=== PATIENT | male | born 1980 | race Caucasian/White ===

== ENCOUNTER → 2020-05-24 08:18 | Outpatient (BNVA) | payer MEDICARE, MEDICAID, SELFPAY | PROVIDERS: PCP Internal Medicine; Referring Provider Internal Medicine; Visit Provider Internal Medicine Gastroenterology | DX: D64.9 Anemia, unspecified (principal); K59.00 Constipation, unspecified; E10.65 Type 1 diabetes mellitus with hyperglycemia; Q90.9 Down syndrome, unspecified; Z88.2 Allergy status to sulfonamides | CPT/HCPCS: 99212 ==

== ENCOUNTER 2020-06-03 08:55 | Outpatient (REF) | payer MEDICARE, MEDICAID, SELFPAY ==
[2020-06-03 10:02] LABS: Alanine Aminotransferase 15 U/L (0-40); Albumin Level 3.2 g/dL (3.5-5.0); Alkaline Phosphatase 61 U/L (39-117); Aspartate Amino Transferase 12 U/L (5-37); Bilirubin Total 0.2 mg/dL (0.0-1.0); Blood Urea Nitrogen 39 mg/dL (9-16); Calcium 8.6 mg/dL (8.4-10.2); Cholesterol 201 mg/dL; Estimated Glomerular Filt Rate > 60; Glucose Random 188 mg/dL (60-115); HDL Cholesterol 57 mg/dL; LDL Cholesterol Calculated 111 mg/dl; Total Protein 6.2 g/dL (6.5-8.0); Triglycerides 168 mg/dL
[2020-06-03 10:40] LABS: Anion Gap 11 (12-20); Carbon Dioxide 31 mmol/L (22-29); Chloride 99 mmol/L (96-108); Potassium 4.8 mmol/l (3.3-5.1); Sodium 136 mmol/L (135-145)
== END 2020-06-03 08:56 | disposition home or self-care (01) ==
LOC: HO.LAB 08:55
PROVIDERS: PCP Internal Medicine; Visit Provider Internal Medicine
DX: E78.00 Pure hypercholesterolemia, unspecified (principal)
CPT/HCPCS: 80053; 80061

== ENCOUNTER → 2020-06-11 09:58 | Outpatient (BNVA) | payer MEDICARE, MEDICAID, SELFPAY | PROVIDERS: PCP Internal Medicine; Referring Provider Internal Medicine; Visit Provider Internal Medicine Pulmonary Disease | DX: J20.9 Acute bronchitis, unspecified (principal); R05 Cough; Z79.899 Other long term (current) drug therapy | CPT/HCPCS: 99212 ==

== ENCOUNTER 2020-07-01 09:29 | Outpatient (REF) | payer MEDICARE, MEDICAID, SELFPAY ==
--- NOTE | 2020-07-01 10:28 | MHC.AU.P13 ---
Adult Audiological Evaluation Date of Visit: 07/01/20 Reason for Appointment: Audiological re-evaluation to monitor hearing loss. Annual audiological evaluations required by DDS. Mr. 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 Has hearing been tested previously?: Yes Previous Hearing Test Results: [facility] [place], 02/05/2019- Mild to moderate high-frequency sensorineural hearing loss bilaterally. Ear History: History of Ear Wax Buildup: Both Ears Medical History: Medical History:Developmental Disorder/Delay, Diabetes, Down Syndrome, Thyroid Disease Medical History (Other): environmental allergies Otoscopy: Right Ear: Unremarkable Left Ear: Partially occluded with cerumen. Unable to view TM. Tympanometry: Right Ear: Reduced Middle Ear Compliance (Type As) Left Ear: Normal Middle Ear System (Type A) Hearing Evaluation: Transducer(s) Used: Circumaural Headphones, Bone Conduction Method: Conventional Audiometry Stimuli Used: Pure Tones Right Ear: Description of Hearing: Normal hearing from 250-2000 Hz, sloping to a mild to moderate sensorineural hearing loss from 5236-5455 Hz. Left Ear: Description of Hearing: Normal hearing from 250-2000 Hz, sloping to a mild to moderate sensorineural hearing loss from 5785-0812 Hz. Speech Recognition Threshold (SRT): Method Used: Monitored Live Voice Stimuli Used: Spondee Words Right Ear: 10 dBHL Left Ear: 15 dBHL Word Discrimination: Method: Recorded Lists Word Lists Used: PBK Right Ear: 96% at 55 dBHL Left Ear: 92% at 55 dBHL Comparison: Compared to the most recent evaluation: Hearing is stable. Recommendations: Recommendations: Audiological re-evaluation in one year. Amplification is not warranted at this time. Follow-up with physician for cerumen removal. Diagnosis: Primary Diagnosis: H90.3 Bilateral Sensorineural Hearing Loss Secondary Diagnosis: H61.22 Impacted Cerumen, Left Ear Services Performed: Services Performed: Comprehensive Audiological Evaluation (CPT 87739) Tympanometry (CPT 11402) Signature: Provider: Sheryl Seay, CCC-A
== END 2020-07-01 09:30 | disposition home or self-care (01) ==
LOC: HO.SH 09:29
PROVIDERS: Visit Provider Internal Medicine
DX: H90.3 Sensorineural hearing loss, bilateral (principal); H61.22 Impacted cerumen, left ear
CPT/HCPCS: 92557; 92567

== ENCOUNTER 2020-09-13 09:28 | Outpatient (REF) | payer MEDICARE, MEDICAID, SELFPAY ==
[2020-09-13 10:21] LABS: Ammonia 21 umol/L (13-55)
[2020-09-13 10:22] LABS: Alanine Aminotransferase 17 U/L (0-40); Albumin Level 3.1 g/dL (3.5-5.0); Alkaline Phosphatase 62 U/L (39-117); Aspartate Amino Transferase 21 U/L (5-37); Bilirubin Direct < 0.2 mg/dL (0.0-0.5); Bilirubin Total 0.4 mg/dL (0.0-1.0); Total Protein 6.2 g/dL (6.5-8.0)
[2020-09-13 14:36] LABS: Valproate 15.3 mcg/mL (50.0-100.0)
== END 2020-09-13 09:29 | disposition home or self-care (01) ==
LOC: HO.LAB 09:28
PROVIDERS: PCP Internal Medicine; Visit Provider General Practice
DX: Z79.899 Other long term (current) drug therapy (principal)
CPT/HCPCS: 36415; 80076; 80164; 82140

== ENCOUNTER → 2020-09-15 09:42 | Outpatient (BNVA) | payer MEDICARE, MEDICAID, SELFPAY | PROVIDERS: PCP Internal Medicine; Visit Provider Urology | DX: Z13.89 Encounter for screening for other disorder (principal) | CPT/HCPCS: Q3014 ==

== ENCOUNTER → 2020-10-08 09:42 | Outpatient (BNVA) | payer MEDICARE, MEDICAID, SELFPAY | PROVIDERS: PCP Internal Medicine; Visit Provider Internal Medicine Pulmonary Disease | DX: J84.112 Idiopathic pulmonary fibrosis (principal); R05 Cough | CPT/HCPCS: 99212 ==

== ENCOUNTER 2020-11-11 07:22 | Outpatient (REF) | payer MEDICARE, MEDICAID, SELFPAY ==
[2020-11-11 08:35] LABS: Alanine Aminotransferase 13 U/L (0-40); Albumin Level 3.2 g/dL (3.5-5.0); Alkaline Phosphatase 59 U/L (39-117); Anion Gap 11 (12-20); Aspartate Amino Transferase 12 U/L (5-37); Bilirubin Total 0.4 mg/dL (0.0-1.0); Blood Urea Nitrogen 37 mg/dL (9-16); Calcium 8.3 mg/dL (8.4-10.2); Carbon Dioxide 29 mmol/L (22-29); Chloride 101 mmol/L (96-108); Cholesterol 194 mg/dL; Estimated Glomerular Filt Rate > 60; Glucose Random 343 mg/dL (60-115); HDL Cholesterol 44 mg/dL; LDL Cholesterol Calculated 122 mg/dl; Potassium 5.4 mmol/L (3.3-5.1); Sodium 136 mmol/L (135-145); Total Protein 5.9 g/dL (6.5-8.0); Triglycerides 143 mg/dL
[2020-11-11 08:55] LABS: Estimated Average Glucose 229 mg/dL; Hemoglobin A1c % 9.6 %
== END 2020-11-11 07:23 | disposition home or self-care (01) ==
LOC: HO.LAB 07:22
PROVIDERS: Visit Provider Internal Medicine
DX: E10.65 Type 1 diabetes mellitus with hyperglycemia (principal); E78.00 Pure hypercholesterolemia, unspecified
CPT/HCPCS: 36415; 80053; 80061; 83036

== ENCOUNTER 2021-01-26 08:31 | Outpatient (REF) | payer MEDICARE, MEDICAID, SELFPAY ==
[2021-01-26 10:54] LABS: Glucose Urine UA 100 MG/DL (NEG); Leukocyte Esterase Urine NEG (NEG); Nitrite Urine NEG (NEG); PH 5.5 (5.0-8.0); Specific Gravity - Urine >= 1.030 (1.005-1.025); Urine Blood TRACE (NEG); Urine Ketones NEG (NEG); Urine Protein 3+ MG/DL (NEG-TRACE)
[2021-01-26 10:55] LABS: Appearance Urine CLEAR; Color Urine YELLOW
[2021-01-26 11:43] LABS: Amorphous Sediment Urine TRACE /LPF; Bacteria Urine TRACE /LPF; Squamous Epithelial Cell Urine TRACE /LPF; WBC Urine 0-2 /HPF (0-4)
== END 2021-01-26 08:32 | disposition home or self-care (01) ==
LOC: HO.LAB 08:31
PROVIDERS: PCP Internal Medicine; Visit Provider Nurse Practitioner Family
DX: K59.00 Constipation, unspecified (principal); R30.0 Dysuria
CPT/HCPCS: 81001; 99212

== ENCOUNTER → 2021-02-15 09:14 | Outpatient (BNVA) | payer MEDICARE, MEDICAID, SELFPAY | PROVIDERS: PCP Internal Medicine; Visit Provider Internal Medicine Pulmonary Disease | DX: J84.112 Idiopathic pulmonary fibrosis (principal); R05 Cough | CPT/HCPCS: 99212 ==

== ENCOUNTER → 2021-04-15 09:50 | Outpatient (BNVA) | payer MEDICARE, MEDICAID, SELFPAY | PROVIDERS: PCP Internal Medicine; Visit Provider Internal Medicine Pulmonary Disease | DX: J84.112 Idiopathic pulmonary fibrosis (principal); R05 Cough | CPT/HCPCS: 99212 ==

== ENCOUNTER → 2021-05-12 10:01 | Outpatient (BNVA) | payer MEDICARE, MEDICAID, SELFPAY | PROVIDERS: PCP Internal Medicine; Visit Provider Internal Medicine Pulmonary Disease | DX: J84.112 Idiopathic pulmonary fibrosis (principal); R05.9 Cough, unspecified; E10.9 Type 1 diabetes mellitus without complications; E78.00 Pure hypercholesterolemia, unspecified; Q90.9 Down syndrome, unspecified; F41.8 Other specified anxiety disorders; Z88.2 Allergy status to sulfonamides | CPT/HCPCS: 99212 ==

== ENCOUNTER 2021-07-28 09:28 | Outpatient (REF) | payer MEDICARE, MEDICAID, SELFPAY ==
--- NOTE | 2021-07-28 10:14 | MHC.AU.ANO ---
Adult Audiological Evaluation Date of Visit: 07/28/21 Reason for Appointment: Annual re-evaluation, as required by DDS, to monitor hearing loss. Patient denies any concerns about his hearing or ears. No major medical changes reported. Has hearing been tested previously?: Yes Previous Hearing Test Results: At this clinic on 07/01/2020- Normal hearing from 250-2000 Hz, sloping to moderate sensorineural hearing loss by 8000 Hz bilaterally. Ear History: Recent Ear Drainage: None Reported Recent Ear Pain: None Reported History of Ear Wax Buildup: Both Ears Medical History: Medical History: Diabetes, Down Syndrome, Thyroid Disease, Environmental Allergies Otoscopy: Right Ear: Minimal cerumen Left Ear: Minimal cerumen Tympanometry: Tympanometry performed due to: To assess integrity of the middle ear system Right Ear: Reduced Middle Ear Compliance (Type As) Left Ear: Normal Middle Ear System (Type A) Hearing Evaluation: Transducer(s) Used: Insert Earphones Method: Conventional Audiometry Stimuli Used: Pure Tones Right Ear: Description of Hearing: Normal hearing from 250-3000 Hz, sloping to a mild sensorineural hearing loss by 8000 Hz Left Ear: Description of Hearing: Normal hearing from 250-2000 Hz, sloping to a moderate sensorineural hearing loss by 8000 Hz Speech Recognition Threshold (SRT): Method Used: Monitored Live Voice Stimuli Used: Spondee Words Right Ear: 20 dBHL Left Ear: 20 dBHL Word Discrimination: Method: Recorded Lists Word Lists Used: W-22 Right Ear: 100% at 60 dBHL Left Ear: 100% at 60 dBHL Comparison: Compared to the most recent evaluation: Hearing is stable. Recommendations: Audiological re-evaluation in one year. Amplification is not warranted at this time. Diagnosis: Primary Diagnosis: H90.3 Bilateral Sensorineural Hearing Loss Signature: Provider: Sheryl Keane, CCC-A
== END 2021-07-28 09:29 | disposition home or self-care (01) ==
LOC: HO.SH 09:28
PROVIDERS: Visit Provider Internal Medicine
DX: H90.3 Sensorineural hearing loss, bilateral (principal); H61.22 Impacted cerumen, left ear
CPT/HCPCS: 92557; 92567

== ENCOUNTER → 2021-08-04 09:44 | Outpatient (BNVA) | payer MEDICARE, MEDICAID, SELFPAY | PROVIDERS: PCP Internal Medicine; Visit Provider Internal Medicine Pulmonary Disease | DX: J84.112 Idiopathic pulmonary fibrosis (principal); R05.9 Cough, unspecified | CPT/HCPCS: 99212 ==

== ENCOUNTER → 2021-09-15 09:56 | Outpatient (BNVA) | payer MEDICARE, MEDICAID, SELFPAY | PROVIDERS: PCP Internal Medicine; Visit Provider Urology | DX: N40.1 Benign prostatic hyperplasia with lower urinary tract symptoms (principal); R35.0 Frequency of micturition; N31.9 Neuromuscular dysfunction of bladder, unspecified; E10.40 Type 1 diabetes mellitus with diabetic neuropathy, unspecified | CPT/HCPCS: 51798; 99212 ==

== ENCOUNTER 2021-09-29 09:34 | Outpatient (REF) | payer MEDICARE, MEDICAID, SELFPAY ==
[2021-09-29 11:28] LABS: Valproate 3.6 mcg/mL (50.0-100.0)
== END 2021-09-29 09:35 | disposition home or self-care (01) ==
LOC: HO.LAB 09:34
PROVIDERS: PCP Internal Medicine; Visit Provider General Practice
DX: Z79.899 Other long term (current) drug therapy (principal)
CPT/HCPCS: 36415; 80164

== ENCOUNTER → 2021-11-15 09:48 | Outpatient (BNVA) | payer MEDICARE, MEDICAID, SELFPAY | PROVIDERS: PCP Internal Medicine; Visit Provider Internal Medicine Pulmonary Disease | DX: J84.112 Idiopathic pulmonary fibrosis (principal); R05.9 Cough, unspecified; Q90.9 Down syndrome, unspecified; Z79.899 Other long term (current) drug therapy | CPT/HCPCS: 99212 ==

== ENCOUNTER → 2022-03-22 09:34 | Outpatient (BNVA) | payer MEDICARE, MEDICAID, SELFPAY | PROVIDERS: PCP Internal Medicine; Visit Provider Urology | DX: N35.919 Unspecified urethral stricture, male, unspecified site (principal); N31.9 Neuromuscular dysfunction of bladder, unspecified | CPT/HCPCS: 51798; 99212 ==

== ENCOUNTER 2022-03-27 15:29 | Inpatient (IN) | payer MEDICARE, MEDICAID, SELFPAY ==
--- NOTE | ~2022-03-27 | XR_ITS ---
EXAMINATION: XR CHEST CLINICAL INFORMATION: Chest pain COMPARISON: Chest x-ray 11/23/2019 TECHNIQUE: Frontal view of the chest was obtained. FINDINGS: Lungs are hypoinflated. No airspace consolidation, pleural effusion, or pneumothorax. Normal cardiomediastinal silhouette and pulmonary vascularity. No evidence of pulmonary edema. No acute osseous injury. XR/XR chest 1V IMPRESSION: 1. Hypoinflated lungs. No acute pulmonary process.
--- NOTE | ~2022-03-27 | NM_ITS ---
Lexiscan Myocardial perfusion study Indication: Chest pain, assess for coronary disease and ischemia Technique: The patient was brought in for a Lexiscan perfusion study on 03/29/2022 and was injected 0.4 mg of Lexiscan intravenously. Within a minute of this injection 25 mCi of sestamibi was given intravenously. Images were obtained using the SPECT gamma camera interlaced with the gating device. Images were obtained in supine position. Resting perfusion study was performed on 03/28/2022. Patient was administered 25 mCi of sestamibi intravenously at rest. Images were then obtained in supine position. Total DLP 77mGy-cm. Images were processed with the software and compared side to side in short axis, horizontal long axis and vertical long axis views. Findings: Raw acquisition reviewed. The stress perfusion study showed no significant perfusion abnormality. Both uncorrected as well as CT attenuation corrected images were reviewed. Gated LVEF is diminished at 44%, but visually appears normal. LV cavity is normal in size. The gated study shows normal wall thickening and contraction of segments. Resting study shows no significant perfusion abnormality. Gating at rest reveals normal wall motion with ejection fraction at 53%. The findings are consistent with no clear reversible or fixed perfusion defects. NM/NM nickolas perf SPECT rest & str Impression: 1. Myocardial perfusion imaging study shows likely normal myocardial perfusion. No definitive evidence of any ischemia or infarction. 2. Gated LVEF is 44% during stress, 53% during rest; but visually appears normal. Correlate with echocardiogram. 3. Transient ischemic dilatation not present. EKG component of the test reported separately.
[2022-03-27 15:36] VITALS: BP 137/71; BP 164/86; PULSE 60; PULSE 73; RESP 16; TEMP 36.3; O2SAT 100; O2SAT 99; BMI 24.4
[2022-03-27 15:44] LABS: Glucose, Whole Blood 415 mg/dL (60-115)
--- NOTE | 2022-03-27 15:57 | ECG_ITS ---
Test Reason : CHEST PAIN Blood Pressure : / mmHG Vent. Rate : 061 BPM Atrial Rate : 061 BPM P-R Int : 106 ms QRS Dur : 084 ms QT Int : 402 ms P-R-T Axes : 043 004 018 degrees QTc Int : 404 ms Sinus rhythm with short AK Otherwise normal ECG When compared with ECG of 23-NOV-2019 12:32, No significant change was found Referred By: Arturo Figueroa Electronically Signed By:DOUGLAS RUIZ
--- NOTE | 2022-03-27 15:57 | ED.GENADULT ---
HPI - General Adult General Chief complaint: Recheck/Abnormal Lab/Rx Stated complaint: hyperglycemia Time Seen by Provider: 03/27/22 15:40 Source: patient and family (Mother at the bedside) Mode of arrival: EMS Limitations: other (patient limited historian ) History of Present Illness HPI narrative: 41-year-old male past medical history significant for anxiety, depression, BPH, uncontrolled diabetes, down syndrome, GERD, hypothyroidism, pseudoseizures, renal insufficiency presenting to the emergency department from a care home with concerns of elevated blood glucose levels, and substernal nonradiating chest pain. According to mother who is at the bedside patient was noted to have sugars in the 500s thought the care home, his care home had a substitute nurse today who felt uncomfortable treating this value at the care home therefore advised patient to come into the emergency department to be evaluated. She tells me he has never gone into DKA, she tells me usually when his sugars are high they have him hydrate, give him insulin and have him exercise. Patient tells me that he had nonradiating chest pain however this has subsided. He tells me he feels fine and has no complaints. Related Data Home Medications Medication Instructions Recorded Confirmed insulin glargine 100 unit/mL (3 13 unit subcut QPM 05/13/20 01/18/22 mL) subcutaneous pen (Lantus Solostar U-100 Insulin) levothyroxine 100 mcg tablet 100 mcg PO DAILY 05/13/20 01/18/22 (Levoxyl) insulin lispro 100 unit/mL See Rx Instructions subcut TID 05/25/20 03/27/22 subcutaneous pen (Humalog KwikPen (U-100) Insulin) citalopram 20 mg tablet 20 mg PO DAILY 09/15/21 01/18/22 divalproex 250 mg tablet,delayed 250 mg PO BEDTIME 09/15/21 01/18/22 release pen needle, diabetic 33 gauge x #100 ea 09/15/21 01/18/22 (Comfort EZ Pen Cecil) zinc oxide 13 % topical cream appl topical DAILY 09/15/21 01/18/22 (Desitin Rapid Relief) azithromycin 250 mg tablet mg PO 03/21/22 Previous Rx's Medication Instructions Recorded white petrolatum 71.3 % topical 1 appl topical BEDTIME PRN dry 09/15/20 ointment (Desitin Multi-Purpose) skin #99 grams guaifenesin 400 mg tablet 400 mg PO QAM 14 days #14 tabs 10/08/20 betamethasone dipropionate 0.05 % 1 appl topical BID #45 grams 11/18/20 topical cream arformoterol 15 mcg/2 mL solution 2 ml inhalation DAILY 30 days #2 mL 02/23/21 for nebulization (Brovana) polymyxin B sulfate 10,000 1 drp ophthalmic (eye) Q3H 7 days 05/16/21 unit-trimethoprim 1 mg/mL eye #10 mL drops (Polytrim) ipratropium 0.5 mg-albuterol 3 mg 3 ml inhalation BID #180 mL 05/24/21 (2.5 mg base)/3 mL nebulization soln cetirizine 10 mg tablet 10 mg PO QAM #90 tabs 05/30/21 docusate sodium 100 mg capsule 100 mg PO BID #180 caps 06/23/21 (DOK) cholecalciferol (vitamin D3) 25 25 mcg PO DAILY 90 days #90 caps 07/28/21 mcg (1,000 unit) capsule famotidine 10 mg tablet 10 mg PO BID 90 days #180 tabs 07/28/21 lisinopril 5 mg tablet 5 mg PO DAILY #90 tabs 08/11/21 ascorbate calcium (vitamin C) 500 500 mg PO DAILY 90 days #90 tabs 10/17/21 mg tablet aspirin 81 mg tablet,delayed 81 mg PO DAILY 90 days #90 tabs 11/14/21 release (Adult Aspirin Regimen) BENEFIBER POW See Rx Instructions .Route 11/29/21 .COMPLEX #500 grams folic acid 800 mcg tablet 0.8 mg PO QAM #90 tabs 01/26/22 simvastatin 10 mg tablet 10 mg PO BEDTIME #90 tabs 02/21/22 ferrous fumarate 325 mg (106 mg 325 mg PO DAILY #90 tabs 03/02/22 iron) tablet clotrimazole-betamethasone 1 1 appl topical BID 2 weeks #45 03/22/22 %-0.05 % topical cream grams tamsulosin 0.4 mg capsule 0.8 mg PO DAILY 90 days #180 caps 03/22/22 Allergies Allergy/AdvReac Type Severity Reaction Status Date / Time Sulfa (Sulfonamide Allergy Intermediate ITCHING Verified 03/21/22 15:13 Antibiotics) [SULFA(SULFONAMIDE ANTIBIOTICS)] Review of Systems Review of Systems: Constitutional : No Weight loss, No Fever, No Chills, No Fatigue, No Malaise ENT/Mouth : No sore throat, No Rhinorrhea Eyes: No Eye Pain, No Swelling, No Redness Cardiovascular : No Chest Pain, No SOB, No Dyspnea on Exertion, No Orthopnea, No Edema, No Palpitations Respiratory : No Cough, No Sputum, No Wheezing Gastrointestinal : No Nausea, No Vomiting, No Diarrhea, No Constipation, No abdominal Pain, No Hematochezia, No Melena Genitourinary : No Dysuria, No Urinary Frequency, No Hematuria, Musculoskeletal : No joint pain, No Myalgias, No Joint Swelling Skin : No Skin Lesions, No rash Neuro : No Weakness, No Numbness, No Dizziness, No Headache Psych : No Anxiety/Panic, No Depression All other systems reviewed and are negative Yes all other systems are reviewed and are negative [facility] Past Medical History Attestation statement: The following information was validated with the patient. Source: old records reviewed and nursing notes reviewed Medical History Anxiety and depression Ascites BPH (benign prostatic hyperplasia) Cellulitis Constipation Diabetes mellitus type 1 Down syndrome GERD (gastroesophageal reflux disease) Hypercholesterolemia Hypothyroid Mental and behavioral problem Pericardial effusion Pseudoseizures Renal insufficiency Urethral meatal stenosis Surgical History Hx of cataract surgery Family History Family History Father Medical history unknown Mother Medical history unknown Social History Social History Household Members Other:: Lives in a senior care setting. Housing: Other Housing Other:: senior care Alcohol intake: never Patient Tobacco Use Status: Never used Tobacco e-Cigarette/Vaping Use: Never Used Second Hand Smoke Exposure: No Use of substances other than those prescribed or required for medical reasons: No Advance Directives: No Advance Directives Information Provided: No service: No Current occupational status: disabled Physical Exam ED Vital Signs: Vital Signs - 24 hr 03/27/22 15:36 03/27/22 22:00 Temperature 97.4 F 97.9 F Pulse Rate 60 61 Respiratory Rate 16 20 Blood Pressure 137/71 124/57 L Pulse Oximetry 100 96 Oxygen Delivery Method Room Air Room Air BMI result Body Mass Index 33.6 vss Appearance: Alert.? Oriented X3.? No acute distress.? Head: Normocephalic, atraumatic, no step-offs or deformities Eyes: Pupils equal, round and reactive to light.? ENT: Pharynx normal.? Neck: Normal inspection.? Neck supple.? CVS: Normal heart rate and rhythm.? Pulses normal.? Respiratory: No respiratory distress.? Breath sounds normal.? Abdomen: Soft and nontender.? Skin: Skin warm and dry.? Normal skin color.? Normal skin turgor.? Extremities: No lower extremity edema.? No calf ttp. 5/5 strength to bilateral upper and lower extremities Back: No midline tenderness, no C-spine tenderness, full range of motion, no CVA tenderness bilaterally Neuro: Oriented X 3.? No motor deficit.? No sensory deficit. CN 2-12 intact Course Reevaluation(s) Reevaluation #1: CBC within normal limits. Chemistry with a slightly low sodium and low magnesium, patient receiving IV fluids and magnesium has been ordered . BUN chronically elevated appears to be at baseline. POC from 415 to 254. Urine clean. Acetone negative, VBG negative unlikley DKA. Pending repeat labs and trop. Time: 17:54 Reevaluation #2: Second troponin elevated 58.3 a repeat EKG will be obtained at this time, patient denying chest pain at this time. ASA was given by EMS. Time: 19:07 Reevaluation #3: Repeat trop 86.1, reache out to Dr. Davis cardiology for input. Time: 21:54 Additional Reevaluation(s): [address] [place] [address] Davis who tells me likley ACS and to tx as such. Will give morphine and heparin. Patient tells me he isn't having CP at this time. Patient will be admitted to the hospital team for further evaluation and tx. Medical Decision Making MDM Narrative Medical decision making narrative: 1600 41 yo M presents from care home with elevated sugars in the 500s, substernal chest pain nonradiating x1 day. Patient accompanied by mother at the bedside. Physical examination benign. Will rule out DKA, ACS although both unlikely. I do not suspect PE on this patient. Likely poorly controlled diabetes. Plan at this time is labs, urine, EKG, troponin. Medical Records Medical records reviewed: Yes I reviewed the patient's medical records. Lab Data Lab results reviewed: Yes I reviewed the patient's lab results. Result diagrams: 03/27/22 16:35 03/27/22 18:33 Labs: Lab Results 03/27/22 03/27/22 03/27/22 Range/Units 15:41 16:35 16:35 WBC 6.0 (4.8-10.8) X10*3/uL RBC 3.35 L (4.60-5.80) X10*6/uL Hgb 10.5 L (14.0-18.0) g/dl Hct 30.1 L (42.0-52.0) % MCV 89.9 (80.0-98.0) fL MCH 31.3 (27.0-33.0) pg MCHC 34.9 (31.0-36.0) g/dl RDW 12.9 (11.0-16.0) % Plt Count 270 (160-400) X10*3/uL MPV 8.7 L (9.4-12.4) fL Immature Gran % (Auto) 0.3 (0.0-0.4) % Neut % (Auto) 72.2 (45-73) % Lymph % (Auto) 17.6 L (20-40) % [place] % (Auto) 6.1 (2-11) % Eos % (Auto) 2.8 (0-4) % Baso % (Auto) 1.0 (0-2) % Lymph # (Auto) 1.1 L (1.2-4.9) X10*3/uL [place] # (Auto) 0.4 (0.1-1.2) X10*3/uL Eos # (Auto) 0.2 (0.0-0.4) X10*3/uL Baso # (Auto) 0.1 (0.0-0.2) X10*3/uL Abs Immat Gran (auto) 0.02 (0.00-0.03) X10*3/uL Absolute Neuts (auto) 4.4 (2.0-8.3) x10*3/uL Absolute Nucleated RBC 0.000 (0.0-0.012) X10*3/uL Nucleated RBC % (auto) 0.0 (0.0-0.2) /100WBC VBG pH (7.32-7.43) VBG pCO2 mmHg VBG pO2 mmHg VBG HCO3 (22-26) mmol/L VBG O2 Saturation % VBG Base Excess mmol/L Sodium 126 L (135-145) mmol/L Potassium 4.7 (3.3-5.1) mmol/L Chloride 94 L (96-108) mmol/L Carbon Dioxide 25 (22-29) mmol/L Anion Gap 12 (12-20) BUN 39 H (9-16) mg/dL Creatinine 1.37 (0.5-1.4) mg/dL Estim Creat Clear Calc 42.3 Estimated GFR 57 POC Glucose 415 H* (60-115) mg/dL Random Glucose 254 H (60-115) mg/dL Calcium 7.6 L D (8.4-10.2) mg/dL Magnesium 1.4 L* (1.6-2.6) mg/dL Total Bilirubin 0.3 (0.0-1.0) mg/dL AST 12 (5-37) U/L ALT 13 (0-40) U/L Alkaline Phosphatase 68 (39-117) U/L Troponin I High Sens (<3.5-35.0) ng/L Total Protein 5.3 L (6.5-8.0) g/dL Albumin 2.7 L (3.5-5.0) g/dL Urine Color Urine Appearance Urine pH (5.0-9.0) Ur Specific [place] (1.005-1.025) Urine Protein (Neg-Trace) mg/dL Urine Glucose (UA) (Negative) mg/dL Urine Ketones (Negative) mg/dL Urine Blood (Negative) Urine Nitrite (Negative) Ur Leukocyte Esterase (Negative) Urine RBC (0-2) /HPF Urine WBC (0-5) /HPF Ur Squamous Epith Cells (0-2) /HPF Urine Bacteria (None Seen) Hyaline Casts (0-2) /LPF Acetone, Qual Negative (Negative) COVID-19 (DERRICK) (Negative) COVID-19 Clin Com 03/27/22 03/27/22 03/27/22 Range/Units 16:35 16:35 16:40 WBC (4.8-10.8) X10*3/uL RBC (4.60-5.80) X10*6/uL Hgb (14.0-18.0) g/dl Hct (42.0-52.0) % MCV (80.0-98.0) fL MCH (27.0-33.0) pg MCHC (31.0-36.0) g/dl RDW (11.0-16.0) % Plt Count (160-400) X10*3/uL MPV (9.4-12.4) fL Immature Gran % (Auto) (0.0-0.4) % Neut % (Auto) (45-73) % Lymph % (Auto) (20-40) % [place] % (Auto) (2-11) % Eos % (Auto) (0-4) % Baso % (Auto) (0-2) % Lymph # (Auto) (1.2-4.9) X10*3/uL [place] # (Auto) (0.1-1.2) X10*3/uL Eos # (Auto) (0.0-0.4) X10*3/uL Baso # (Auto) (0.0-0.2) X10*3/uL Abs Immat Gran (auto) (0.00-0.03) X10*3/uL Absolute Neuts (auto) (2.0-8.3) x10*3/uL Absolute Nucleated RBC (0.0-0.012) X10*3/uL Nucleated RBC % (auto) (0.0-0.2) /100WBC VBG pH 7.32 (7.32-7.43) VBG pCO2 49 mmHg VBG pO2 51 mmHg VBG HCO3 26 (22-26) mmol/L VBG O2 Saturation 73.0 % VBG Base Excess -0.4 mmol/L Sodium (135-145) mmol/L Potassium (3.3-5.1) mmol/L Chloride (96-108) mmol/L Carbon Dioxide (22-29) mmol/L Anion Gap (12-20) BUN (9-16) mg/dL Creatinine (0.5-1.4) mg/dL Estim Creat Clear Calc Estimated GFR POC Glucose (60-115) mg/dL Random Glucose (60-115) mg/dL Calcium (8.4-10.2) mg/dL Magnesium (1.6-2.6) mg/dL Total Bilirubin (0.0-1.0) mg/dL AST (5-37) U/L ALT (0-40) U/L Alkaline Phosphatase (39-117) U/L Troponin I High Sens 9.8 (<3.5-35.0) ng/L Total Protein (6.5-8.0) g/dL Albumin (3.5-5.0) g/dL Urine Color Urine Appearance Urine pH (5.0-9.0) Ur Specific [place] (1.005-1.025) Urine Protein (Neg-Trace) mg/dL Urine Glucose (UA) (Negative) mg/dL Urine Ketones (Negative) mg/dL Urine Blood (Negative) Urine Nitrite (Negative) Ur Leukocyte Esterase (Negative) Urine RBC (0-2) /HPF Urine WBC (0-5) /HPF Ur Squamous Epith Cells (0-2) /HPF Urine Bacteria (None Seen) Hyaline Casts (0-2) /LPF Acetone, Qual (Negative) COVID-19 (DERRICK) Negative (Negative) COVID-19 Clin Com See Note 03/27/22 03/27/22 03/27/22 Range/Units 16:48 18:33 18:34 WBC (4.8-10.8) X10*3/uL RBC (4.60-5.80) X10*6/uL Hgb (14.0-18.0) g/dl Hct (42.0-52.0) % MCV (80.0-98.0) fL MCH (27.0-33.0) pg MCHC (31.0-36.0) g/dl RDW (11.0-16.0) % Plt Count (160-400) X10*3/uL MPV (9.4-12.4) fL Immature Gran % (Auto) (0.0-0.4) % Neut % (Auto) (45-73) % Lymph % (Auto) (20-40) % [place] % (Auto) (2-11) % Eos % (Auto) (0-4) % Baso % (Auto) (0-2) % Lymph # (Auto) (1.2-4.9) X10*3/uL [place] # (Auto) (0.1-1.2) X10*3/uL Eos # (Auto) (0.0-0.4) X10*3/uL Baso # (Auto) (0.0-0.2) X10*3/uL Abs Immat Gran (auto) (0.00-0.03) X10*3/uL Absolute Neuts (auto) (2.0-8.3) x10*3/uL Absolute Nucleated RBC (0.0-0.012) X10*3/uL Nucleated RBC % (auto) (0.0-0.2) /100WBC VBG pH (7.32-7.43) VBG pCO2 mmHg VBG pO2 mmHg VBG HCO3 (22-26) mmol/L VBG O2 Saturation % VBG Base Excess mmol/L Sodium 130 L (135-145) mmol/L Potassium 4.1 (3.3-5.1) mmol/L Chloride 97 (96-108) mmol/L Carbon Dioxide 25 (22-29) mmol/L Anion Gap 12 (12-20) BUN 37 H (9-16) mg/dL Creatinine 1.17 (0.5-1.4) mg/dL Estim Creat Clear Calc 49.5 Estimated GFR > 60 POC Glucose (60-115) mg/dL Random Glucose 66 D (60-115) mg/dL Calcium 7.8 L (8.4-10.2) mg/dL Magnesium (1.6-2.6) mg/dL Total Bilirubin 0.3 (0.0-1.0) mg/dL AST 13 (5-37) U/L ALT 13 (0-40) U/L Alkaline Phosphatase 71 (39-117) U/L Troponin I High Sens 58.3 H D (<3.5-35.0) ng/L Total Protein 5.4 L (6.5-8.0) g/dL Albumin 2.8 L (3.5-5.0) g/dL Urine Color Yellow Urine Appearance Clear Urine pH 5.5 (5.0-9.0) Ur Specific [place] <= 1.005 (1.005-1.025) Urine Protein 100 (2+) H (Neg-Trace) mg/dL Urine Glucose (UA) 500 H (Negative) mg/dL Urine Ketones Negative (Negative) mg/dL Urine Blood Trace H (Negative) Urine Nitrite Negative (Negative) Ur Leukocyte Esterase Negative (Negative) Urine RBC 0-2 (0-2) /HPF Urine WBC 0-5 (0-5) /HPF Ur Squamous Epith Cells 0-2 (0-2) /HPF Urine Bacteria None Seen (None Seen) Hyaline Casts 0-2 (0-2) /LPF Acetone, Qual (Negative) COVID-19 (DERRICK) (Negative) COVID-19 Clin Com 03/27/22 Range/Units 21:09 WBC (4.8-10.8) X10*3/uL RBC (4.60-5.80) X10*6/uL Hgb (14.0-18.0) g/dl Hct (42.0-52.0) % MCV (80.0-98.0) fL MCH (27.0-33.0) pg MCHC (31.0-36.0) g/dl RDW (11.0-16.0) % Plt Count (160-400) X10*3/uL MPV (9.4-12.4) fL Immature Gran % (Auto) (0.0-0.4) % Neut % (Auto) (45-73) % Lymph % (Auto) (20-40) % [place] % (Auto) (2-11) % Eos % (Auto) (0-4) % Baso % (Auto) (0-2) % Lymph # (Auto) (1.2-4.9) X10*3/uL [place] # (Auto) (0.1-1.2) X10*3/uL Eos # (Auto) (0.0-0.4) X10*3/uL Baso # (Auto) (0.0-0.2) X10*3/uL Abs Immat Gran (auto) (0.00-0.03) X10*3/uL Absolute Neuts (auto) (2.0-8.3) x10*3/uL Absolute Nucleated RBC (0.0-0.012) X10*3/uL Nucleated RBC % (auto) (0.0-0.2) /100WBC VBG pH (7.32-7.43) VBG pCO2 mmHg VBG pO2 mmHg VBG HCO3 (22-26) mmol/L VBG O2 Saturation % VBG Base Excess mmol/L Sodium (135-145) mmol/L Potassium (3.3-5.1) mmol/L Chloride (96-108) mmol/L Carbon Dioxide (22-29) mmol/L Anion Gap (12-20) BUN (9-16) mg/dL Creatinine (0.5-1.4) mg/dL Estim Creat Clear Calc Estimated GFR POC Glucose (60-115) mg/dL Random Glucose (60-115) mg/dL Calcium (8.4-10.2) mg/dL Magnesium (1.6-2.6) mg/dL Total Bilirubin (0.0-1.0) mg/dL AST (5-37) U/L ALT (0-40) U/L Alkaline Phosphatase (39-117) U/L Troponin I High Sens 86.1 H (<3.5-35.0) ng/L Total Protein (6.5-8.0) g/dL Albumin (3.5-5.0) g/dL Urine Color Urine Appearance Urine pH (5.0-9.0) Ur Specific [place] (1.005-1.025) Urine Protein (Neg-Trace) mg/dL Urine Glucose (UA) (Negative) mg/dL Urine Ketones (Negative) mg/dL Urine Blood (Negative) Urine Nitrite (Negative) Ur Leukocyte Esterase (Negative) Urine RBC (0-2) /HPF Urine WBC (0-5) /HPF Ur Squamous Epith Cells (0-2) /HPF Urine Bacteria (None Seen) Hyaline Casts (0-2) /LPF Acetone, Qual (Negative) COVID-19 (DERRICK) (Negative) COVID-19 Clin Com ECG Data Attestation: I personally reviewed and interpreted this ECG as follows: Prior ECG tracings: not available for review Interpretation: Ventricular rate of 61, RI short, QRS normal, QT/QTC normal. EKG with sinus rhythm with short RI, no ST elevations or inversions concerning for ischemia. No previous EKGs to compare with. Critical Care Time Critical Care Time Critical Care Time: Yes Total Critical Care Time: 45 Attestation: I attest to this time spent taking care of the patient, obtaining history, physical, reviewing labs, imaging, speaking to my attending, speaking to specialist. Discharge Plan Discharge Clinical Impression: Diabetes mellitus type 1, Hyperglycemia, ACS (acute coronary syndrome) Patient Disposition: Admitted As Inpatient Additional Instructions: Take your medications as prescribed. If you were prescribed antibiotics today, it is important that you take your medication to their entirety, do not skip any doses, do not finish them early. Follow-up with your primary care provider this week. Return to the emergency department with new or worsening symptoms. Such as fevers, chills, chest pain, shortness of breath, nausea, vomiting, dizziness, headache, vision changes, lethargy In case of emergency call 911
[2022-03-27] MEDS: 0.9 % Sodium Chloride 1,000 ML 999 ML IV ×2 (16:10→17:46)
[2022-03-27 16:41] LABS: MANUAL DIFF FLAG NO
[2022-03-27 16:43] LABS: Basophils Absolute Auto 0.1 X10*3/uL (0.0-0.2); Eosinophils Absolute Auto 0.2 X10*3/uL (0.0-0.4); Eosinophils Percent Auto 2.8 % (0-4); Hematocrit 30.1 % (42.0-52.0); Hemoglobin 10.5 g/dl (14.0-18.0); Imm Gran Abs Auto 0.02 X10*3/uL (0.00-0.03); Imm Gran Pct Auto 0.3 % (0.0-0.4); Lymphocytes Absolute Auto 1.1 X10*3/uL (1.2-4.9); Lymphocytes Percent Auto 17.6 % (20-40); Mean Corpuscular HGB Conc 34.9 g/dl (31.0-36.0); Mean Corpuscular Hemoglobin 31.3 pg (27.0-33.0); Mean Corpuscular Volume 89.9 fL (80.0-98.0); Mean Platelet Volume 8.7 fL (9.4-12.4); Monocytes Absolute Auto 0.4 X10*3/uL (0.1-1.2); Monocytes Percent Auto 6.1 % (2-11); Neutrophils Absolute Auto 4.4 x10*3/uL (2.0-8.3); Neutrophils Percent Auto 72.2 % (45-73); Platelet Count 270 X10*3/uL (160-400); Red Blood Count 3.35 X10*6/uL (4.60-5.80); Red Cell Distribution Width 12.9 % (11.0-16.0)
[2022-03-27 16:44] LABS: Venous Blood Gas Refer to POC result
[2022-03-27 16:46] LABS: VBG Base Excess -0.4 mmol/L; VBG HCO3 26 mmol/L (22-26); VBG pCO2 49 mmHg; VBG pH 7.32 (7.32-7.43); VBG pO2 51 mmHg
[2022-03-27 17:00] LABS: COVID-19 Test Negative (Negative); IDNOW Serial# 55D5AD1C
--- NOTE | 2022-03-27 17:00 | PC.NURSE ---
PT STATES CP HAS RESOLVED SINCE ARRIVAL. MOTHER AT BEDSIDE, STATES PT DESCRIBES CP FREQUENTLY, DESCRIBED BY MOTHER HAVING TENDENCIES TO DRAMATIZE SYMPTOMS. SKIN PWD, RESP EVEN, NONLABOURED, SPEAKING IN CLEAR SENTENCES.
[2022-03-27 17:02] LABS: Troponin-I High Sensitivity 9.8 ng/L (<3.5-35.0)
[2022-03-27 17:05] LABS: Alanine Aminotransferase 13 U/L (0-40); Albumin Level 2.7 g/dL (3.5-5.0); Alkaline Phosphatase 68 U/L (39-117); Anion Gap 12 (12-20); Aspartate Amino Transferase 12 U/L (5-37); Bilirubin Total 0.3 mg/dL (0.0-1.0); Blood Urea Nitrogen 39 mg/dL (9-16); Calcium 7.6 mg/dL (8.4-10.2); Carbon Dioxide 25 mmol/L (22-29); Chloride 94 mmol/L (96-108); Creatinine Clr Calc Pharmacy 42.3; Estimated Glomerular Filt Rate 57; Glucose Random 254 mg/dL (60-115); Magnesium 1.4 mg/dL (1.6-2.6); Potassium 4.7 mmol/L (3.3-5.1); Sodium 126 mmol/L (135-145); Total Protein 5.3 g/dL (6.5-8.0)
[2022-03-27 17:08] LABS: Appearance Urine Clear; Color Urine Yellow; Glucose Urine UA 500 mg/dL (Negative); Leukocyte Esterase Urine Negative (Negative); Nitrite Urine Negative (Negative); PH 5.5 (5.0-9.0); Specific Gravity - Urine <= 1.005 (1.005-1.025); Urine Blood Trace (Negative); Urine Ketones Negative (Negative); Urine Protein 100 (2+) mg/dL (Neg-Trace)
[2022-03-27 17:13] LABS: Bacteria Urine None Seen (None Seen); Hyaline Casts Urine 0-2 /LPF (0-2); RBC Urine 0-2 /HPF (0-2); Squamous Epithelial Cell Urine 0-2 /HPF (0-2); WBC Urine 0-5 /HPF (0-5)
[2022-03-27 17:35] LABS: Acetone, serum QL Negative (Negative)
[2022-03-27] MEDS: Magnesium Sulfate/H2O 2 GM/50 ML PIGGYBACK IV (17:46)
[2022-03-27 18:00] VITALS: PULSE 69
[2022-03-27 19:03] LABS: Alanine Aminotransferase 13 U/L (0-40); Albumin Level 2.8 g/dL (3.5-5.0); Alkaline Phosphatase 71 U/L (39-117); Anion Gap 12 (12-20); Aspartate Amino Transferase 13 U/L (5-37); Bilirubin Total 0.3 mg/dL (0.0-1.0); Blood Urea Nitrogen 37 mg/dL (9-16); Calcium 7.8 mg/dL (8.4-10.2); Carbon Dioxide 25 mmol/L (22-29); Chloride 97 mmol/L (96-108); Creatinine Clr Calc Pharmacy 49.5; Estimated Glomerular Filt Rate > 60; Glucose Random 66 mg/dL (60-115); Potassium 4.1 mmol/L (3.3-5.1); Sodium 130 mmol/L (135-145); Total Protein 5.4 g/dL (6.5-8.0)
[2022-03-27 19:04] LABS: Troponin-I High Sensitivity 58.3 ng/L (<3.5-35.0)
[2022-03-27 21:35] LABS: Troponin-I High Sensitivity 86.1 ng/L (<3.5-35.0)
[2022-03-27 22:00] VITALS: BP 124/57; PULSE 61; RESP 20; TEMP 36.6; O2SAT 96
[2022-03-27 22:07] VITALS: BMI 33.6
[2022-03-27] MEDS: Morphine Sulfate 4 MG/ML CARTRIDGE IVPUSH (22:30)
--- NOTE | 2022-03-27 22:37 | PM.IMHP ---
History of Present Illness Date of Service: 03/27/22 Chief Complaint: Chest pain 41-year-old male with past medical history of Down syndrome, diabetes, IPF, HLD, GERD, BPH, hypothyroidism, anxiety and depression presents to the hospital with complaints of chest pain. Patient initially was evaluated at the custodial for hyperglycemia with his glucose being in the 500, fairly patient then started complaining of midsternal chest pain. Patient reports that the pain is intermittent, lasting few minutes, resolving spontaneously, pain is midsternal, nonradiating, mild, with no association with shortness of breath, or palpitations. Patient otherwise denies any headache, change in vision, no abdominal pain nausea or vomiting, no diarrhea constipation, no urinary symptoms. On arrival to the ED patient hemodynamically stable with no significant abnormal vitals Labs are significant for WBC count of 6.1, hemoglobin of 11, hematocrit 32.1, sodium of 130, BUN of 37, magnesium of 1.4, creatinine of 1.17, initial troponin of 9.8 that increased to 58 and 86.1, UA negative, acetone negative, chest x-ray shows hypoinflated lungs Case was discussed with Cardiology, patient started on heparin will be admitted for further management Review of Systems Review of Systems: Yes all other systems are reviewed and are negative [facility] Medical History Anxiety and depression Ascites BPH (benign prostatic hyperplasia) Cellulitis Constipation Diabetes mellitus type 1 Down syndrome GERD (gastroesophageal reflux disease) Hypercholesterolemia Hypothyroid Mental and behavioral problem Pericardial effusion Pseudoseizures Renal insufficiency Urethral meatal stenosis Family History Father Medical history unknown Mother Medical history unknown Surgical History Hx of cataract surgery Social History Household Members: Other Household Members Other:: other residents and staff Housing: Other Housing Other:: Detention Do you presently have visiting nurse or other home services: No Alcohol intake: never Patient Tobacco Use Status: Never used Tobacco e-Cigarette/Vaping Use: Never Used Second Hand Smoke Exposure: No Use of substances other than those prescribed or required for medical reasons: No Currently Displaying Signs/Symptoms of Drug Intoxication Withdrawal: No Any prior treatment program specific to substance use: No Have you been hit, kicked, punched, or otherwise hurt by someone within the past year? If so, by whom?: No Do you feel safe in your current relationship?: No Is there a partner from a previous relationship who is making you feel unsafe now?: No Are you made to feel afraid or neglected: No Advance Directives: No Advance Directives Information Provided: No Do you have thoughts of harming others: None Do you have a plan to hurt others: No Plan Recently lost weight without trying: No Eating poorly because of decreased appetite: No Nutrition Risks: No Nutritional Risk service: No Current occupational status: disabled Meds Allergies Allergy/AdvReac Type Severity Reaction Status Date / Time Sulfa (Sulfonamide Allergy Intermediate ITCHING Verified 03/21/22 15:13 Antibiotics) [SULFA(SULFONAMIDE ANTIBIOTICS)] Active Medications: Current Medications Heparin Sodium (Porcine) (Heparin Sodium,Porcine 5,000 Unit/Ml Vial) 1,900 unit 40 unit/kg (1900 unit) IVPUSH PROTOCOL BOLUS PRN; Protocol PRN Reason: 40 unit/kg - Heparin Protocol Heparin Sodium (Porcine) (Heparin Sodium,Porcine 5,000 Unit/Ml Vial) 3,800 unit 80 unit/kg (3800 unit) IVPUSH PROTOCOL BOLUS PRN; Protocol PRN Reason: 80 unit/kg - Heparin Protocol Heparin Sodium/Sodium Chloride (Heparin Sodium,Porcine/1/2ns) 25,000 unit in 250 mls @ 0 mls/hr IVCONT .Q0M LINDA; Protocol Pharmacy Consult (Consult Rx Perform Med Rec) 1 each MISCELLANE ONCE PRN PRN Reason: Consult order Home Medications Medication Instructions Recorded Confirmed Last Taken Type insulin glargine 100 unit/mL (3 6 unit subcut QPM 05/13/20 03/27/22 Unknown History mL) subcutaneous pen (Lantus Solostar U-100 Insulin) levothyroxine 100 mcg tablet 100 mcg PO DAILY 05/13/20 03/27/22 Unknown History (Levoxyl) insulin lispro 100 unit/mL See Rx Instructions subcut TID 05/25/20 03/27/22 Unknown History subcutaneous pen (Humalog KwikPen (U-100) Insulin) divalproex 250 mg tablet,delayed 250 mg PO BEDTIME 09/15/21 01/18/22 Unknown History release pen needle, diabetic 33 gauge x #100 ea 09/15/21 01/18/22 Unknown History (Comfort EZ Pen [place]) zinc oxide 13 % topical cream 1 appl topical DAILY 09/15/21 03/27/22 Unknown History (Desitin Rapid Relief) azithromycin 250 mg tablet 250 mg PO MOWEFR@2100 03/21/22 03/27/22 Unknown History cetirizine 10 mg tablet 10 mg PO DAILY 03/27/22 03/27/22 Unknown History citalopram 20 mg tablet 20 mg PO DAILY 03/27/22 03/27/22 Unknown History ferrous sulfate 325 mg (65 mg 325 mg PO DAILY 03/27/22 03/27/22 Unknown History iron) tablet tamsulosin 0.4 mg capsule 0.8 mg PO DAILY@1700 03/27/22 03/27/22 Unknown History Physical Exam Vital Signs and Narrative: Vital Signs: Last Vital Signs Temp 97.9 F 03/27/22 22:00 Pulse 61 03/27/22 22:00 Resp 20 03/27/22 22:00 BP 124/57 L 03/27/22 22:00 Pulse Ox 96 03/27/22 22:00 O2 Del Method 03/27/22 22:00 BMI result Body Mass Index 33.6 Const: Other: down syndrome features General: cooperative and no acute distress Eyes: General: appearance normal, both eyes and all related structures Pupils: Equal, round and reactive pupils present Resp: Effort & Inspection: normal respiratory effort Auscultation: clear to auscultation bilaterally Cardio: Rate: regular rate Rhythm: regular rhythm GI: Palpation (GI): Soft to palpation Auscultation: normal bowel sounds Skin: General skin exam: no rashes or lesions noted Neuro: Cranial nerves: Yes Equal, round and reactive pupils present Cognition (Neuro): normal cognition Extrem: General: Yes normal to inspection and Yes no pedal edema Results Labs CBC and Chem 7: 03/27/22 22:27 03/27/22 18:33 Labs: Laboratory Results - last 24 hr 03/27/22 03/27/22 03/27/22 15:41 16:35 16:35 MCV 89.9 MCH 31.3 MCHC 34.9 RDW 12.9 Plt Count 270 MPV 8.7 L Immature Gran % (Auto) 0.3 Neut % (Auto) 72.2 Lymph % (Auto) 17.6 L [place] % (Auto) 6.1 Eos % (Auto) 2.8 Baso % (Auto) 1.0 Lymph # (Auto) 1.1 L [place] # (Auto) 0.4 Eos # (Auto) 0.2 Baso # (Auto) 0.1 Abs Immat Gran (auto) 0.02 Absolute Neuts (auto) 4.4 Absolute Nucleated RBC 0.000 Nucleated RBC % (auto) 0.0 VBG pH VBG pCO2 VBG pO2 VBG HCO3 VBG O2 Saturation VBG Base Excess Anion Gap 12 Estim Creat Clear Calc 42.3 Estimated GFR 57 POC Glucose 415 H* Random Glucose 254 H Calcium 7.6 L D Magnesium 1.4 L* Total Bilirubin 0.3 AST 12 ALT 13 Alkaline Phosphatase 68 Total Protein 5.3 L Albumin 2.7 L Urine Color Urine Appearance Urine pH Ur Specific [place] Urine Protein Urine Glucose (UA) Urine Ketones Urine Blood Urine Nitrite Ur Leukocyte Esterase Urine RBC Urine WBC Ur Squamous Epith Cells Urine Bacteria Hyaline Casts Acetone, Qual Negative COVID-19 (DERRICK) COVID-19 Clin Com 03/27/22 03/27/22 03/27/22 16:35 16:40 16:48 MCV MCH MCHC RDW Plt Count MPV Immature Gran % (Auto) Neut % (Auto) Lymph % (Auto) [place] % (Auto) Eos % (Auto) Baso % (Auto) Lymph # (Auto) [place] # (Auto) Eos # (Auto) Baso # (Auto) Abs Immat Gran (auto) Absolute Neuts (auto) Absolute Nucleated RBC Nucleated RBC % (auto) VBG pH 7.32 VBG pCO2 49 VBG pO2 51 VBG HCO3 26 VBG O2 Saturation 73.0 VBG Base Excess -0.4 Anion Gap Estim Creat Clear Calc Estimated GFR POC Glucose Random Glucose Calcium Magnesium Total Bilirubin AST ALT Alkaline Phosphatase Total Protein Albumin Urine Color Yellow Urine Appearance Clear Urine pH 5.5 Ur Specific [place] <= 1.005 Urine Protein 100 (2+) H Urine Glucose (UA) 500 H Urine Ketones Negative Urine Blood Trace H Urine Nitrite Negative Ur Leukocyte Esterase Negative Urine RBC 0-2 Urine WBC 0-5 Ur Squamous Epith Cells 0-2 Urine Bacteria None Seen Hyaline Casts 0-2 Acetone, Qual COVID-19 (DERRICK) Negative COVID-19 Clin Com See Note 03/27/22 18:33 MCV MCH MCHC RDW Plt Count MPV Immature Gran % (Auto) Neut % (Auto) Lymph % (Auto) [place] % (Auto) Eos % (Auto) Baso % (Auto) Lymph # (Auto) [place] # (Auto) Eos # (Auto) Baso # (Auto) Abs Immat Gran (auto) Absolute Neuts (auto) Absolute Nucleated RBC Nucleated RBC % (auto) VBG pH VBG pCO2 VBG pO2 VBG HCO3 VBG O2 Saturation VBG Base Excess Anion Gap 12 Estim Creat Clear Calc 49.5 Estimated GFR > 60 POC Glucose Random Glucose 66 D Calcium 7.8 L Magnesium Total Bilirubin 0.3 AST 13 ALT 13 Alkaline Phosphatase 71 Total Protein 5.4 L Albumin 2.8 L Urine Color Urine Appearance Urine pH Ur Specific [place] Urine Protein Urine Glucose (UA) Urine Ketones Urine Blood Urine Nitrite Ur Leukocyte Esterase Urine RBC Urine WBC Ur Squamous Epith Cells Urine Bacteria Hyaline Casts Acetone, Qual COVID-19 (DERRICK) COVID-19 Clin Com Imaging Radiologist's Impressions: Impressions Chest X-Ray 03/27/22 19:29 IMPRESSION: 1. Hypoinflated lungs. No acute pulmonary process. Assessment and Plan (1) ACS (acute coronary syndrome): Status: Acute (2) Hyperglycemia: Status: Acute Plan 41-year-old male with past medical history of Down syndrome presents to the hospital with chest pain found to have ACS # chest pain/ACS - likely NSTEMI - had elevated troponins with delta - risk factors include diabetes, as well as Down syndrome - start on heparin GGT - continue home aspirin - cardiology consulted - echocardiogram in a.m. # hyperglycemia - likely secondary to diabetes - will continue his home insulin - will add low-dose setting scale insulin - diabetic diet - continue lisinopril who he is been put on for renal protection per mother # GERD - continue home antiacids # hypothyroidism - continue levothyroxine # BPH - continue tamsulosin DVT prophylaxis: Lovenox Given patient's ACS, patient will require minimum 2 night hospital stay for further management and monitoring Quality Stroke Does the patient have a stroke diagnosis?: No VTE Prior VTE?: No VTE Risk Level:: Medical - moderate - high VTE Device Contraindication: Treatment Not Indicated VTE Drug Contraindication: N/A - Med Ordered
[2022-03-27 22:40] LABS: Hematocrit 32.1 % (42.0-52.0); Mean Corpuscular HGB Conc 34.3 g/dl (31.0-36.0); Mean Corpuscular Hemoglobin 30.5 pg (27.0-33.0); Mean Corpuscular Volume 88.9 fL (80.0-98.0); Mean Platelet Volume 8.8 fL (9.4-12.4); Platelet Count 322 X10*3/uL (160-400); Red Blood Count 3.61 X10*6/uL (4.60-5.80); Red Cell Distribution Width 12.7 % (11.0-16.0); White Blood Count 6.1 X10*3/uL (4.8-10.8)
[2022-03-27 22:48] VITALS: BMI 30.2
[2022-03-27 22:51] VITALS: BP 148/58; PULSE 59; RESP 14; O2SAT 96
--- NOTE | 2022-03-27 22:51 | PHA.MEDREC ---
med rec complete, need to contact primary counselor in am. Pharmacy has been filling depakote dr 250 mg, but nursing home has no record of this medication Pharmacy Consult ? Medication Reconciliation Pharmacy has completed the medication reconciliation.
[2022-03-27 22:59] LABS: INTERNATIONAL NORM RATIO 0.9 (0.9-1.1)
--- NOTE | 2022-03-27 23:00 | PC.NURSE ---
WAITING ON HEPARIN ADMIN, PENDING COAG RESULTS
[2022-03-27 23:01] LABS: PTT Heparin Drip 32.3 SEC (53-77.9)
[2022-03-27] MEDS: Heparin Sodium,Porcine/1/2NS 25,000 UNIT/250 ML IV.SOLN 7.08 UNIT IVCONT (23:14)
[2022-03-27] MEDS: Heparin Sodium,Porcine 5,000 UNIT/ML VIAL 2900 UNIT IVPUSH (23:14)
[2022-03-27 23:46] VITALS: BP 164/53; PULSE 59; RESP 12; TEMP 37.2; O2SAT 95
[2022-03-28] VITALS (7 sets, daily range): BP systolic 129–182; BP diastolic 61–84; PULSE 61–82; RESP 18–20; TEMP 36.3–36.8; O2SAT 95–100; BMI 28.5
--- NOTE | 2022-03-28 | CA_ITS ---
Acquisition Time: 2022-03-29 10:34:17 Total Exercise Time: 00:02:00 Test Indications: Chest Pain Medications: SEE EMAR HEPARIN DRIP Protocol: LEXISCAN Max HR: 131 BPM 73% of Pred: 179 BPM Max BP: 130/080 mmHG Max Work Load: 1.0 METS Pharmacological stress test with Lexiscan injection, while sitting and kicking his legs, without report of chest pains, with dry heaves, without arrythmia, with normotensive response to injection, with nondiagnostic EKG for ischemia. In recovery he was treated with Aminophylline 75mg IVP to reverse Lexiscan. Nuclear images pending. Test reviewed with Dr Nevarez. Referred By: Jordan Nevarez Overread By: EVARISTO YORK
--- NOTE | 2022-03-28 00:19 | PC.NURSE ---
Assumed care of pt. at 2300. Pt. lying in bed watching tv. Assisted pt. to use urinal. Will continue to monitor.
[2022-03-28 00:34] LABS: Glucose, Whole Blood 173 mg/dL (60-115)
[2022-03-28 02:35] LABS: Troponin-I High Sensitivity 58.8 ng/L (<3.5-35.0)
--- NOTE | 2022-03-28 06:37 | PC.NURSE ---
Called lab for PTT results-still ending. Will continue to watch and will pass along to next shift if no results prior to the end of my shift.
[2022-03-28 06:53] LABS: MANUAL DIFF FLAG NO
--- NOTE | 2022-03-28 07:00 | CA_ITS ---
Transthoracic Echocardiogram Patient (Last, First, Middle): Bernard Navarro M Gender: Male Date of : 1980 Age: 41 Procedure Date: 03/28/2022 Procedure Type: Transthoracic Echocardiogram Location: [facility] [place] Height: 139.7 cm Weight: 58.97 kg BSA: 1.46 m2 Heart Rate: bpm BP: 153 / 77 mmHg Trade Sales Assistant: Referring MD: Lillie Roland MD Symptoms: NSTEMI Study Quality: Fair ECG Rhythm: Sinus Conclusions: - Normal left ventricular size, thickness, and systolic function. The visually estimated ejection fraction is between 60-65%. - E/E prime ratio is >15, consistent with elevated filling pressures. - The basal inferior segment is akinetic. Findings Left Ventricle Normal left ventricular size, thickness, and systolic function. The visually estimated ejection fraction is between 60-65%. There is evidence of regional wall motion abnormalities. Abnormal diastolic function is noted. Spectral Doppler is indicative of a pseudonormal filling pattern. E/E prime ratio is >15, consistent with elevated filling pressures. Wall Motion Rest Echo Findings The basal inferior segment is akinetic. Right Ventricle Normal right ventricular cavity size and systolic function. Atria Both atria are normal in size. Aortic Valve Normal aortic valve structure and function. There is mild aortic valve stenosis. There is mild aortic valve regurgitation. Mitral Valve Normal mitral valve structure and function. There is no mitral valve regurgitation. There is no mitral valve stenosis. Pulmonic Valve Normal pulmonic valve structure and function. There is trace pulmonic valve regurgitation. Tricuspid Valve Normal tricuspid valve structure and function. There is trace tricuspid valve regurgitation. Normal right atrial pressure. There is no evidence of pulmonary hypertension. Great Vessels All visible segments of the aorta are normal in size. The visualized portions of the pulmonary artery and branches are normal. Venous The inferior vena cava is normal in size and collapses greater than 50% with inspiration. Prior Study Comparison Changes noted compared to prior study dated: 08/22/2018. No pericardial effusion present. Basal inferior wall hypokinesis Measurements 2D Linear Measurements IVSd: 0.86 0.6-0.9/0.6-1.0 cm LVIDd: 4.17 3.9-5.3/4.2-5.9 cm LVIDd Index: 2.86 2.4-3.2/2.2-3.1 cm/m2 LVIDs: 2.85 2.0-3.6 cm LVPWd: 0.81 0.7-1.1 cm Ao Root: 2.70 2.1-3.5 cm LA Diam: 3.50 2.7-3.8/3.0-4.0 cm LAIDs Index: 2.40 1.5-2.3 cm/m2 LV Mass: 131.31 67-162/88-224 g LV Mass Index: 89.94 43-95/49-115 g/m2 LVOT Diam: 2.00 3.0+(-)1.3 cm Mitral Valve MV Pk E: 1.11 MV PK A: 0.97 MV Decel Time: 258.00 E/A: 1.10 E'Lateral: 6.09 E'Medial: 5.55 E/E' Med: 20.00 E/E' Lat: 18.20 PHT: 76.00 MVA PHT: 2.89 Decel [place]: 4.28 Aortic Valve AoV Pk Ryan: 2.12 AoV Mn Ryan: 1.27 AoV VTI: 0.46 AoV Pk Grad: 18.00 Aov Mn Grad: 8.00 ERYN Cont.VTI: 1.52 AI Pk Ryan: 3.97 AI [place]: 1.96 LVOT LVOT Pk Ryan: 0.94 LVOT Mn Ryan: 0.63 LVOT VTI: 0.22 LVOT Pk Grad: 4.00 LVOT Mn Grad: 2.00 LVOT Diam: 2.00 LVOT Area: 3.14 Diastolic Function MV Pk E: 1.11 MV Pk A: 0.97 E/A: 1.10 E'Medial: 5.55 E/E' Med: 20.00 E' Laterial: 6.09 E/E' Lat: 18.20 Right Ventricle TAPSE (mm): 29.00 TVS' Ryan: 14.00 Tricuspid Valve TR Pk Ryan: 2.14 TR Pk Grad: 18.00 RA Press: 3.00 RVSP: 21.00 Great Vessels Aorta Ao Root-2D: 2.70 2.0-3.7 cm Ao Asc: 2.70 2.1-3.4 cm Pulmonary Valve PV Pk Ryan: 1.09 Peak PV Grad: 5.00 Updated in Other Vendor System with Status of Final Jordan Nevarez MD electronically signed on 03/28/2022 4:10:22 PM with status of Final
[2022-03-28 07:06] LABS: Basophils Absolute Auto 0.1 X10*3/uL (0.0-0.2); Basophils Percent Auto 0.8 % (0-2); Eosinophils Absolute Auto 0.4 X10*3/uL (0.0-0.4); Eosinophils Percent Auto 4.2 % (0-4); Hematocrit 34.4 % (42.0-52.0); Hemoglobin 11.5 g/dl (14.0-18.0); Imm Gran Abs Auto 0.04 X10*3/uL (0.00-0.03); Imm Gran Pct Auto 0.4 % (0.0-0.4); Lymphocytes Absolute Auto 0.9 X10*3/uL (1.2-4.9); Lymphocytes Percent Auto 9.6 % (20-40); Mean Corpuscular HGB Conc 33.4 g/dl (31.0-36.0); Mean Corpuscular Hemoglobin 30.7 pg (27.0-33.0); Mean Platelet Volume 9.5 fL (9.4-12.4); Monocytes Absolute Auto 0.6 X10*3/uL (0.1-1.2); Monocytes Percent Auto 6.6 % (2-11); Neutrophils Absolute Auto 7.6 x10*3/uL (2.0-8.3); Neutrophils Percent Auto 78.4 % (45-73); Platelet Count 324 X10*3/uL (160-400); Red Blood Count 3.74 X10*6/uL (4.60-5.80); Red Cell Distribution Width 12.8 % (11.0-16.0); White Blood Count 9.7 X10*3/uL (4.8-10.8)
[2022-03-28 07:07] LABS: INTERNATIONAL NORM RATIO 0.9 (0.9-1.1); Prothrombin Time 10.4 SEC (10.0-13.1)
[2022-03-28 07:35] LABS: PTT Heparin Drip > 200.0 SEC (53-77.9)
--- NOTE | 2022-03-28 07:37 | PC.NURSE ---
0724-notified of PTT>200, Held heparin gtt at 0726. Notified Ghias at 0730 for further orders. POC- was 501, also awaiting orders.
[2022-03-28 07:38] LABS: Glucose, Whole Blood 501 mg/dL (60-115)
[2022-03-28] MEDS: 0.9 % Sodium Chloride 1,000 ML 250 ML IVCONT ×3 (07:50→18:39)
[2022-03-28] MEDS: Insulin Lispro 100 UNIT/ML 3 ML VIAL SUBCUT ×3 (07:58→16:33)
[2022-03-28 08:08] LABS: Anion Gap 16 (12-20); Blood Urea Nitrogen 32 mg/dL (9-16); Calcium 7.5 mg/dL (8.4-10.2); Carbon Dioxide 16 mmol/L (22-29); Chloride 102 mmol/L (96-108); Creatinine Clr Calc Pharmacy 47.2; Estimated Glomerular Filt Rate 58; Glucose Random 557 mg/dL (60-115); Magnesium 1.9 mg/dL (1.6-2.6); Potassium 5.2 mmol/L (3.3-5.1); Sodium 129 mmol/L (135-145)
[2022-03-28] MEDS: Albuterol/Iprat 2.5/0.5MG 3 ML AMPUL.NEB INHALE ×2 (08:22→19:02)
[2022-03-28] MEDS: Insulin Glargine,Hum.rec.anlog 100 UNIT/ML 10 ML VIAL 6 UNIT SUBCUT ×2 (08:25→21:57)
[2022-03-28 08:33] LABS: Cholesterol 150 mg/dL; HDL Cholesterol 36 mg/dL; LDL Cholesterol Calculated 71 mg/dl; Triglycerides 217 mg/dL
[2022-03-28 08:37] LABS: Glucose, Whole Blood 461 mg/dL (60-115)
--- NOTE | 2022-03-28 08:54 | MHC.CM.PN ---
CM spoke with Patient's Mother/Guardian/Gina at [phone] and addressed IMM with her;the original will be mailed certified letter to Gina and a copy has been placed on the chart. Patient lives in a [facility] and the goal is for him to return there when medically cleared for dc. CM has initiated and will follow for dc planning. PCP is Dr. Boris Mcgowan and Patient has received Moderna/Covid vax X3. At baseline, Patient requires no DME.
[2022-03-28 09:17] LABS: PTT Heparin Drip 98.6 SEC (53-77.9)
[2022-03-28] MEDS: Ascorbic Acid 500 MG TABLET PO (09:24)
[2022-03-28] MEDS: Cholecalciferol (Vitamin D3) 25 MCG TABLET PO (09:24)
[2022-03-28] MEDS: Famotidine 20 MG TABLET 10 MG PO ×2 (09:28→21:57)
[2022-03-28] MEDS: Escitalopram Oxalate 10 MG TABLET PO (09:29)
[2022-03-28] MEDS: lisinopriL 5 MG TABLET PO (09:29)
[2022-03-28] MEDS: Levothyroxine Sodium 100 MCG TABLET PO (09:29)
[2022-03-28] MEDS: Ferrous Sulfate 324 MG TABLET.DR PO (09:29)
[2022-03-28] MEDS: Loratadine 10 MG TABLET PO (09:29)
[2022-03-28] MEDS: Atorvastatin Calcium 10 MG TABLET PO ×2 (09:29→21:57)
[2022-03-28] MEDS: 0.9 % Sodium Chloride Flush 3 ML SYRINGE IVFLUSH ×2 (09:30→11:17)
[2022-03-28] MEDS: Folic Acid 1 MG TABLET PO (09:30)
--- NOTE | 2022-03-28 09:37 | PC.NURSE ---
PTT resulted still above 93. Ordered another PTT per Heparin protocol. Heparin gtt continues on hold. ASA not given this AM due to increased PTT and risk of bleeding. Patient continues asymptomatic.
[2022-03-28 09:47] LABS: Glucose, Whole Blood 332 mg/dL (60-115)
[2022-03-28 10:03] LABS: PTT Heparin Drip 40.6 SEC (53-77.9)
--- NOTE | 2022-03-28 10:24 | HE.PHANOTE ---
Called Dr. Mcgowan's office 03/28/22 @0695 to verify whether or not pt should be on Depakote DR 250mg, waiting outside sales consultant back.
--- NOTE | 2022-03-28 10:38 | P.PNIM_ITS ---
Subjective Subjective Date of Service: 03/28/22 Interval History: unreliable historian, initially said he has chest pain, few minutes later denied chest discomfort, denies palpitation, very emotional noted to have elevated blood sugars, denies nausea vomiting, no abdominal pain. Review of Systems [employer] no headache no dizziness respiratory no shortness of breath skin no itching/ no rash Review of Systems: Yes all other systems are reviewed and are negative Physical Exam Vital Signs: Vital Signs: Last Vital Signs Temp 97.3 F 03/28/22 08:00 Pulse 71 03/28/22 08:00 Resp 18 03/28/22 08:24 BP 182/84 H 03/28/22 08:00 Pulse Ox 97 03/28/22 08:00 O2 Del Method 03/28/22 08:00 BMI result Body Mass Index 30.2 Const: Other: General resting comfortably in no acute distress. Neck no JVD. anterior chest wall exam initially said tender to palpation later denied pain CVS regular rate rhythm, Respiratory lungs clear to auscultation, no respiratory distress, no wheeze, no rhonchi. Gastrointestinal abdomen soft, nontender, bowel sounds audible, no guarding , no rigidity. Extremities no edema. Neuro moving all 4 extremity, speech clear. Skin no rash Objective Data Active Medications Acetaminophen (Acetaminophen 325 Mg Tablet) 650 mg PO Q6H PRN PRN Reason: Pain, Mild (Pain Scale 1-3) Albuterol/Ipratropium (Albuterol/Iprat 2.5/0.5mg 3 Ml Ampul.Neb) 3 ml INHALE BID [facility] Last Admin: 03/28/22 08:22 Dose: 3 ml Documented By: JM Ascorbic Acid (Ascorbic Acid 500 Mg Tablet) 500 mg PO DAILY [facility] Last Admin: 03/28/22 09:24 Dose: 500 mg Documented By: REJI Aspirin (Aspirin Enteric Coated 81 Mg Tablet.) 81 mg PO DAILY [facility] Last Admin: 03/28/22 09:29 Dose: Not Given Documented By: REJI Non-Admin Reason: PTT >200 Atorvastatin Calcium (Atorvastatin Calcium 10 Mg Tablet) 10 mg PO DAILY@2100 [facility] Last Admin: 03/28/22 09:29 Dose: 10 mg Documented By: REJI Azithromycin (Azithromycin 250 Mg Tablet) 250 mg PO MOWEFR@2100 [facility] Dextrose (Dextrose 50 % 25 Gm/50 Ml Syringe) 25 gm IVPUSH Q15M PRN; Protocol PRN Reason: per Hypoglycemia Standing Ord. Docusate Sodium (Docusate Sodium 100 Mg Capsule) 100 mg PO DAILY PRN PRN Reason: Constipation Escitalopram Oxalate (Escitalopram Oxalate 10 Mg Tablet) 10 mg PO DAILY [facility] Last Admin: 03/28/22 09:29 Dose: 10 mg Documented By: REJI Famotidine (Famotidine 20 Mg Tablet) 10 mg PO BID [facility] Last Admin: 03/28/22 09:28 Dose: 10 mg Documented By: REJI Comments: half tab Ferrous Sulfate (Ferrous Sulfate 324 Mg Tablet.Dr) 324 mg PO DAILY [facility] Last Admin: 03/28/22 09:29 Dose: 324 mg Documented By: REJI Folic Acid (Folic Acid 1 Mg Tablet) 1 mg PO DAILY [facility] Last Admin: 03/28/22 09:35 Dose: Not Given Documented By: REJI Non-Admin Reason: Duplicate Order Glucose (Glucose Gel 15 Gm Gel..Gram.) 15 gm PO Q15M PRN; Protocol PRN Reason: per Hypoglycemia Standing Ord. Heparin Sodium (Porcine) (Heparin Sodium,Porcine 5,000 Unit/Ml Vial) 2,400 unit 40 unit/kg (2400 unit) IVPUSH PROTOCOL BOLUS PRN; Protocol PRN Reason: 40 unit/kg - Heparin Protocol Heparin Sodium (Porcine) (Heparin Sodium,Porcine 5,000 Unit/Ml Vial) 4,700 unit 80 unit/kg (4700 unit) IVPUSH PROTOCOL BOLUS PRN; Protocol PRN Reason: 80 unit/kg - Heparin Protocol Heparin Sodium/Sodium Chloride (Heparin Sodium,Porcine/1/2ns) 25,000 unit in 250 mls @ 0 mls/hr IVCONT .Q0M [facility]; Protocol Last Admin: 03/27/22 23:14 Dose: 12 units/kg/hr, 7.08 mls/hr Documented By: ROSEMARY Co-signed By: OPHELIA Sodium Chloride (Ns) 1,000 mls @ 250 mls/hr IVCONT .Q4H [facility] Last Admin: 03/28/22 07:50 Dose: 250 mls/hr Documented By: REJI Insulin Glargine (Insulin Glargine,Hum.Rec.Anlog 100 Unit/Ml 10 Ml Vial) 6 unit SUBCUT DAILY@2100 [facility] Last Admin: 03/28/22 08:25 Dose: 6 unit Documented By: REJI Insulin Human Lispro (Insulin Lispro 100 Unit/Ml 3 Ml Vial) 0 unit SUBCUT QIDACHS [facility]; Protocol Last Admin: 03/28/22 07:58 Dose: 12 unit Documented By: REJI Comments: PER HIRA GIVE 12U SUBQ Levothyroxine Sodium (Levothyroxine Sodium 100 Mcg Tablet) 100 mcg PO DAILY [facility] Last Admin: 03/28/22 09:29 Dose: 100 mcg Documented By: REJI Lisinopril (Lisinopril 5 Mg Tablet) 5 mg PO DAILY [facility]; Protocol Last Admin: 03/28/22 09:29 Dose: 5 mg Documented By: REJI Loratadine (Loratadine 10 Mg Tablet) 10 mg PO DAILY [facility] Last Admin: 03/28/22 09:29 Dose: 10 mg Documented By: REJI Non-Formulary Medication (Zinc Oxide [Desitin Rapid Relief]) 1 appl TOPICAL DAILY [facility] Nystatin (Nystatin Cream 15 Gm Tube) 1 appl TOPICAL BID [facility] Last Admin: 03/28/22 09:35 Dose: Not Given Documented By: REJI Non-Admin Reason: Patient Refused Ondansetron HCl (Ondansetron Hcl 4 Mg/2 Ml Vial) 4 mg IVPUSH Q8H PRN PRN Reason: Nausea and Vomiting Pharmacy Consult (Consult Rx Perform Med Rec) 1 each MISCELLANE ONCE PRN PRN Reason: Consult order Sodium Chloride (0.9 % Sodium Chloride Flush 3 Ml Syringe) 3 ml IVFLUSH QSHIFT [facility] Last Admin: 03/28/22 09:30 Dose: 3 ml Documented By: REJI Tamsulosin HCl (Tamsulosin Hcl 0.4 Mg Capsule) 0.8 mg PO DAILY@1700 [facility] Triamcinolone Acetonide (Triamcinolone Acet 0.1 % Cream 15 Gm Tube) 1 appl TOPICAL BID [facility] Last Admin: 03/28/22 09:35 Dose: Not Given Documented By: REJI Non-Admin Reason: Patient Refused Vitamin D (Cholecalciferol (Vitamin D3) 25 Mcg Tablet) 25 mcg PO DAILY [facility] Last Admin: 03/28/22 09:24 Dose: 25 mcg Documented By: REJI Labs CBC & Chem 7: 03/28/22 11:44 03/28/22 13:43 Labs: Laboratory Results - last 24 hr 03/27/22 03/27/22 03/27/22 15:41 16:35 16:35 MCV 89.9 MCH 31.3 MCHC 34.9 RDW 12.9 Plt Count 270 MPV 8.7 L Immature Gran % (Auto) 0.3 Neut % (Auto) 72.2 Lymph % (Auto) 17.6 L Warren % (Auto) 6.1 Eos % (Auto) 2.8 Baso % (Auto) 1.0 Lymph # (Auto) 1.1 L Warren # (Auto) 0.4 Eos # (Auto) 0.2 Baso # (Auto) 0.1 Abs Immat Gran (auto) 0.02 Absolute Neuts (auto) 4.4 Absolute Nucleated RBC 0.000 Nucleated RBC % (auto) 0.0 PT INR aPTT Heparin Protocol VBG pH VBG pCO2 VBG pO2 VBG HCO3 VBG O2 Saturation VBG Base Excess Anion Gap 12 Estim Creat Clear Calc 42.3 Estimated GFR 57 POC Glucose 415 H* Random Glucose 254 H Calcium 7.6 L D Magnesium 1.4 L* Total Bilirubin 0.3 AST 12 ALT 13 Alkaline Phosphatase 68 Total Protein 5.3 L Albumin 2.7 L Triglycerides Cholesterol LDL Cholesterol, Calc HDL Cholesterol Urine Color Urine Appearance Urine pH Ur Specific Hammon Urine Protein Urine Glucose (UA) Urine Ketones Urine Blood Urine Nitrite Ur Leukocyte Esterase Urine RBC Urine WBC Ur Squamous Epith Cells Urine Bacteria Hyaline Casts Acetone, Qual Negative COVID-19 (DERRICK) COVID-19 Clin Com 03/27/22 03/27/22 03/27/22 16:35 16:40 16:48 MCV MCH MCHC RDW Plt Count MPV Immature Gran % (Auto) Neut % (Auto) Lymph % (Auto) Warren % (Auto) Eos % (Auto) Baso % (Auto) Lymph # (Auto) Warren # (Auto) Eos # (Auto) Baso # (Auto) Abs Immat Gran (auto) Absolute Neuts (auto) Absolute Nucleated RBC Nucleated RBC % (auto) PT INR aPTT Heparin Protocol VBG pH 7.32 VBG pCO2 49 VBG pO2 51 VBG HCO3 26 VBG O2 Saturation 73.0 VBG Base Excess -0.4 Anion Gap Estim Creat Clear Calc Estimated GFR POC Glucose Random Glucose Calcium Magnesium Total Bilirubin AST ALT Alkaline Phosphatase Total Protein Albumin Triglycerides Cholesterol LDL Cholesterol, Calc HDL Cholesterol Urine Color Yellow Urine Appearance Clear Urine pH 5.5 Ur Specific Hammon <= 1.005 Urine Protein 100 (2+) H Urine Glucose (UA) 500 H Urine Ketones Negative Urine Blood Trace H Urine Nitrite Negative Ur Leukocyte Esterase Negative Urine RBC 0-2 Urine WBC 0-5 Ur Squamous Epith Cells 0-2 Urine Bacteria None Seen Hyaline Casts 0-2 Acetone, Qual COVID-19 (DERRICK) Negative COVID-19 Clin Com See Note 03/27/22 03/27/22 03/27/22 18:33 22:27 22:27 MCV 88.9 MCH 30.5 MCHC 34.3 RDW 12.7 Plt Count 322 MPV 8.8 L Immature Gran % (Auto) Neut % (Auto) Lymph % (Auto) Warren % (Auto) Eos % (Auto) Baso % (Auto) Lymph # (Auto) Warren # (Auto) Eos # (Auto) Baso # (Auto) Abs Immat Gran (auto) Absolute Neuts (auto) Absolute Nucleated RBC 0.000 Nucleated RBC % (auto) 0.0 PT 10.0 INR 0.9 aPTT Heparin Protocol 32.3 L VBG pH VBG pCO2 VBG pO2 VBG HCO3 VBG O2 Saturation VBG Base Excess Anion Gap 12 Estim Creat Clear Calc 49.5 Estimated GFR > 60 POC Glucose Random Glucose 66 D Calcium 7.8 L Magnesium Total Bilirubin 0.3 AST 13 ALT 13 Alkaline Phosphatase 71 Total Protein 5.4 L Albumin 2.8 L Triglycerides Cholesterol LDL Cholesterol, Calc HDL Cholesterol Urine Color Urine Appearance Urine pH Ur Specific Hammon Urine Protein Urine Glucose (UA) Urine Ketones Urine Blood Urine Nitrite Ur Leukocyte Esterase Urine RBC Urine WBC Ur Squamous Epith Cells Urine Bacteria Hyaline Casts Acetone, Qual COVID-19 ([facility]ERRICK) COVID-19 Clin Com 03/28/22 03/28/22 03/28/22 00:30 06:35 06:35 MCV 92.0 MCH 30.7 MCHC 33.4 RDW 12.8 Plt Count 324 MPV 9.5 Immature Gran % (Auto) 0.4 Neut % (Auto) 78.4 H Lymph % (Auto) 9.6 L Warren % (Auto) 6.6 Eos % (Auto) 4.2 H Baso % (Auto) 0.8 Lymph # (Auto) 0.9 L Warren # (Auto) 0.6 Eos # (Auto) 0.4 Baso # (Auto) 0.1 Abs Immat Gran (auto) 0.04 H Absolute Neuts (auto) 7.6 Absolute Nucleated RBC 0.000 Nucleated RBC % (auto) 0.0 PT Cancelled INR Cancelled aPTT Heparin Protocol VBG pH VBG pCO2 VBG pO2 VBG HCO3 VBG O2 Saturation VBG Base Excess Anion Gap Estim Creat Clear Calc Estimated GFR POC Glucose 173 H Random Glucose Calcium Magnesium Total Bilirubin AST ALT Alkaline Phosphatase Total Protein Albumin Triglycerides Cholesterol LDL Cholesterol, Calc HDL Cholesterol Urine Color Urine Appearance Urine pH Ur Specific Hammon Urine Protein Urine Glucose (UA) Urine Ketones Urine Blood Urine Nitrite Ur Leukocyte Esterase Urine RBC Urine WBC Ur Squamous Epith Cells Urine Bacteria Hyaline Casts Acetone, Qual COVID-19 ([facility]ICK) COVID-19 [facility] [employer] [facility] 03/28/22 03/28/22 03/28/22 06:35 06:35 07:14 MCV MCH MCHC RDW Plt Count MPV Immature Gran % (Auto) Neut % (Auto) Lymph % (Auto) Warren % (Auto) Eos % (Auto) Baso % (Auto) Lymph # (Auto) Warren # (Auto) Eos # (Auto) Baso # (Auto) Abs Immat Gran (auto) Absolute Neuts (auto) Absolute Nucleated RBC Nucleated RBC % (auto) PT 10.4 INR 0.9 aPTT Heparin Protocol > 200.0 H* D VBG pH VBG pCO2 VBG pO2 VBG HCO3 VBG O2 Saturation VBG Base Excess Anion Gap 16 Estim Creat Clear Calc 47.2 Estimated GFR 58 POC Glucose 501 H* Random Glucose 557 H* Calcium 7.5 L Magnesium 1.9 Total Bilirubin AST ALT Alkaline Phosphatase Total Protein Albumin Triglycerides 217 Cholesterol 150 D LDL Cholesterol, Calc 71 HDL Cholesterol 36 Urine Color Urine Appearance Urine pH Ur Specific Hammon Urine Protein Urine Glucose (UA) Urine Ketones Urine Blood Urine Nitrite Ur Leukocyte Esterase Urine RBC Urine WBC Ur Squamous Epith Cells Urine Bacteria Hyaline Casts Acetone, Qual COVID-19 ([facility]ERRICK) COVID-19 [facility] [facility] 03/28/22 03/28/22 03/28/22 08:32 08:39 09:43 MCV MCH MCHC RDW Plt Count MPV Immature Gran % (Auto) Neut % (Auto) Lymph % (Auto) Warren % (Auto) Eos % (Auto) Baso % (Auto) Lymph # (Auto) Warren # (Auto) Eos # (Auto) Baso # (Auto) Abs Immat Gran (auto) Absolute Neuts (auto) Absolute Nucleated RBC Nucleated RBC % (auto) PT INR aPTT Heparin Protocol 98.6 H D VBG pH VBG pCO2 VBG pO2 VBG HCO3 VBG O2 Saturation VBG Base Excess Anion Gap Estim Creat Clear Calc Estimated GFR POC Glucose 461 H* 332 H Random Glucose Calcium Magnesium Total Bilirubin AST ALT Alkaline Phosphatase Total Protein Albumin Triglycerides Cholesterol LDL Cholesterol, Calc HDL Cholesterol Urine Color Urine Appearance Urine pH Ur Specific Hammon Urine Protein Urine Glucose (UA) Urine Ketones Urine Blood Urine Nitrite Ur Leukocyte Esterase Urine RBC Urine WBC Ur Squamous Epith Cells Urine Bacteria Hyaline Casts Acetone, Qual COVID-19 ([facility]ERRICK) COVID-19 [employer] [facility] 03/28/22 09:46 MCV MCH MCHC RDW Plt Count MPV Immature Gran % (Auto) Neut % (Auto) Lymph % (Auto) Warren % (Auto) Eos % (Auto) Baso % (Auto) Lymph # (Auto) Warren # (Auto) Eos # (Auto) Baso # (Auto) Abs Immat Gran (auto) Absolute Neuts (auto) Absolute Nucleated RBC Nucleated RBC % (auto) PT INR aPTT Heparin Protocol 40.6 L D VBG pH VBG pCO2 VBG pO2 VBG HCO3 VBG O2 Saturation VBG Base Excess Anion Gap Estim Creat Clear Calc Estimated GFR POC Glucose Random Glucose Calcium Magnesium Total Bilirubin AST ALT Alkaline Phosphatase Total Protein Albumin Triglycerides Cholesterol LDL Cholesterol, Calc HDL Cholesterol Urine Color Urine Appearance Urine pH Ur Specific Hammon Urine Protein Urine Glucose (UA) Urine Ketones Urine Blood Urine Nitrite Ur Leukocyte Esterase Urine RBC Urine WBC Ur Squamous Epith Cells Urine Bacteria Hyaline Casts Acetone, Qual COVID-19 ([facility]ERRICK) COVID-19 Clin Com Assessment and Plan (1) Hyperglycemia: Status: Acute Plan 41-year-old male with past medical history of Down syndrome presents to the hospital with chest pain found to have ACS # chest pain/ACS - unreliable historian, has chest pain with palpation no acute ischemic change on EKG - had elevated troponins with delta, total cholesterol 150 LDL 71 - risk factors include diabetes, as well as Down syndrome - on heparin GGT, continue home aspirin, statin, noted elevated blood pressures while patient was emotional crying, recheck blood pressure if allow will add low-dose beta-dean - echocardiogram obtained follow report, await Cardio input # hyperglycemia secondary to diabetes due to dietary indiscretion/no DKA - will continue home Lantus, adjust insulin sliding scale continue diabetic diet give IV fluids - continue lisinopril has been put on for renal protection per mother # pseudoHyponatremia/hyperkalemia and acidosis normal anion gap due to elevated blood sugars will treat aggressively with IV fluid and insulin, repeat sodium 139/ potassium normalized. # GERD - continue home antiacids # hypothyroidism - continue levothyroxine # BPH - continue tamsulosin # anxiety/depression continue citalopram # pseudoseizures, will verify if patient is on Depakote/add sz precautions # hypomagnesemia repleted repeat magnesium 1.9 DVT prophylaxis:? Lovenox patient will need continued inpatient hospitalization due to hyperglycemia with acidosis and further workup for chest pain to rule out acute coronary syndrome Quality Stroke Does the patient have a stroke diagnosis?: No VTE Prior VTE?: No VTE Risk Level:: Medical - moderate - high VTE Device Contraindication: Treatment Not Indicated VTE Drug Contraindication: N/A - Med Ordered
--- NOTE | 2022-03-28 10:49 | PC.NURSE ---
PTT drawn at 0946 noted to be resulted around 1015. Reviewed protocol and will restart heparin gtt once accurate weight with standing scale obtained to decrease risk of high PTT. ias is aware at this time.
--- NOTE | 2022-03-28 11:03 | PC.NURSE ---
New weight entered into chart. New PTT ordered as it has been over one hour since last drawn and will have to go by a new heparin protocol tailored to pt new weight. Grover aware at this time.
[2022-03-28 11:26] LABS: Glucose, Whole Blood 222 mg/dL (60-115)
[2022-03-28 11:45] LABS: INTERNATIONAL NORM RATIO 0.9 (0.9-1.1); Prothrombin Time 9.8 SEC (10.0-13.1)
[2022-03-28 11:49] LABS: Hematocrit 34.1 % (42.0-52.0); Hemoglobin 11.6 g/dl (14.0-18.0); Mean Corpuscular Hemoglobin 30.4 pg (27.0-33.0); Mean Corpuscular Volume 89.5 fL (80.0-98.0); Mean Platelet Volume 8.7 fL (9.4-12.4); Platelet Count 343 X10*3/uL (160-400); Red Blood Count 3.81 X10*6/uL (4.60-5.80); White Blood Count 9.6 X10*3/uL (4.8-10.8)
[2022-03-28] MEDS: Heparin Sodium,Porcine/1/2NS 25,000 UNIT/250 ML IV.SOLN 6.68 UNIT IVCONT (12:09)
--- NOTE | 2022-03-28 12:10 | PC.NURSE ---
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 Per provider Grover- no heparin IV bolus to be given at this time with PTT of 33.0. Patient remains asymptomatic at time of heparin gtt restart. Next PTT to be drawn at 1810, order placed.
--- NOTE | 2022-03-28 12:15 | P.CONCA_ITS ---
History of Present Illness History of Present Illness Date of Service: 03/28/22 Chief complaint: NSTEMI Narrative: 41-year-old gentleman with Down syndrome who is here with chest pain and h yperglycemia. Patient is not a reliable historian. He is accompanied by his mother. He complained of chest discomfort yesterday and was brought to the emergency department. His EKG was normal and did not show any dynamic changes. His high sensitivity troponin levels were mildly abnormal. He was admitted and started on heparin drip. As mentioned patient has Down syndrome and he is not a reliable historian. He is saying he has no chest pain now. He said he had chest pain yesterday but cannot describe it. His blood pressure is mildly elevated. Overall doing well. Eating his lunch without any issues right now. [facility] Past Medical History Medical History Anxiety and depression Ascites BPH (benign prostatic hyperplasia) Cellulitis Constipation Diabetes mellitus type 1 Down syndrome GERD (gastroesophageal reflux disease) Hypercholesterolemia Hypothyroid Mental and behavioral problem Pericardial effusion Pseudoseizures Renal insufficiency Urethral meatal stenosis Family History Family History Father Medical history unknown Mother Medical history unknown Surgical History Surgical History Hx of cataract surgery Social History Social History Household Members: Other Household Members Other:: other residents and staff Housing: Other Housing Other:: Custodial Do you presently have visiting nurse or other home services: No Alcohol intake: never Patient Tobacco Use Status: Never used Tobacco e-Cigarette/Vaping Use: Never Used Second Hand Smoke Exposure: No Use of substances other than those prescribed or required for medical reasons: No Currently Displaying Signs/Symptoms of Drug Intoxication Withdrawal: No Any prior treatment program specific to substance use: No Have you been hit, kicked, punched, or otherwise hurt by someone within the past year? If so, by whom?: No Do you feel safe in your current relationship?: No Is there a partner from a previous relationship who is making you feel unsafe now?: No Are you made to feel afraid or neglected: No Advance Directives: No Advance Directives Information Provided: No Do you have thoughts of harming others: None Do you have a plan to hurt others: No Plan Recently lost weight without trying: No Eating poorly because of decreased appetite: No Nutrition Risks: No Nutritional Risk service: No Current occupational status: disabled Meds Allergies Allergy/AdvReac Type Severity Reaction Status Date / Time Sulfa (Sulfonamide Allergy Intermediate ITCHING Verified 03/21/22 15:13 Antibiotics) [SULFA(SULFONAMIDE ANTIBIOTICS)] Active Medications: Current Medications Acetaminophen (Acetaminophen 325 Mg Tablet) 650 mg PO Q6H PRN PRN Reason: Pain, Mild (Pain Scale 1-3) Albuterol/Ipratropium (Albuterol/Iprat 2.5/0.5mg 3 Ml Ampul.Neb) 3 ml INHALE BID [facility] Last Admin: 03/28/22 08:22 Dose: 3 ml Ascorbic Acid (Ascorbic Acid 500 Mg Tablet) 500 mg PO DAILY [facility] Last Admin: 03/28/22 09:24 Dose: 500 mg Aspirin (Aspirin Enteric Coated 81 Mg Tablet.) 81 mg PO DAILY [facility] Last Admin: 03/28/22 09:29 Dose: Not Given Atorvastatin Calcium (Atorvastatin Calcium 10 Mg Tablet) 10 mg PO DAILY@2100 [facility] Last Admin: 03/28/22 09:29 Dose: 10 mg Azithromycin (Azithromycin 250 Mg Tablet) 250 mg PO MOWEFR@2100 [facility] Dextrose (Dextrose 50 % 25 Gm/50 Ml Syringe) 25 gm IVPUSH Q15M PRN; Protocol PRN Reason: per Hypoglycemia Standing Ord. Docusate Sodium (Docusate Sodium 100 Mg Capsule) 100 mg PO DAILY PRN PRN Reason: Constipation Escitalopram Oxalate (Escitalopram Oxalate 10 Mg Tablet) 10 mg PO DAILY [facility] Last Admin: 03/28/22 09:29 Dose: 10 mg Famotidine (Famotidine 20 Mg Tablet) 10 mg PO BID [facility] Last Admin: 03/28/22 09:28 Dose: 10 mg Ferrous Sulfate (Ferrous Sulfate 324 Mg Tablet.) 324 mg PO DAILY [facility] Last Admin: 03/28/22 09:29 Dose: 324 mg Folic Acid (Folic Acid 1 Mg Tablet) 1 mg PO DAILY [facility] Last Admin: 03/28/22 09:35 Dose: Not Given Glucose (Glucose Gel 15 Gm Gel..Gram.) 15 gm PO Q15M PRN; Protocol PRN Reason: per Hypoglycemia Standing Ord. Heparin Sodium (Porcine) (Heparin Sodium,Porcine 5,000 Unit/Ml Vial) 2,200 unit 40 unit/kg (2200 unit) IVPUSH PROTOCOL BOLUS PRN; Protocol PRN Reason: 40 unit/kg - Heparin Protocol Heparin Sodium (Porcine) (Heparin Sodium,Porcine 5,000 Unit/Ml Vial) 4,500 unit 80 unit/kg (4500 unit) IVPUSH PROTOCOL BOLUS PRN; Protocol PRN Reason: 80 unit/kg - Heparin Protocol Sodium Chloride (Ns) 1,000 mls @ 250 mls/hr IVCONT .Q4H [facility] Last Admin: 03/28/22 07:50 Dose: 250 mls/hr Heparin Sodium/Sodium Chloride (Heparin Sodium,Porcine/1/2ns) 25,000 unit in 250 mls @ 0 mls/hr IVCONT .Q0M [facility]; Protocol Insulin Glargine (Insulin Glargine,Hum.Rec.Anlog 100 Unit/Ml 10 Ml Vial) 6 unit SUBCUT DAILY@2100 [facility] Last Admin: 03/28/22 08:25 Dose: 6 unit Insulin Human Lispro (Insulin Lispro 100 Unit/Ml 3 Ml Vial) 0 unit SUBCUT QIDACHS [facility]; Protocol Last Admin: 03/28/22 11:16 Dose: 6 unit Levothyroxine Sodium (Levothyroxine Sodium 100 Mcg Tablet) 100 mcg PO DAILY [facility] Last Admin: 03/28/22 09:29 Dose: 100 mcg Lisinopril (Lisinopril 5 Mg Tablet) 5 mg PO DAILY [facility]; Protocol Last Admin: 03/28/22 09:29 Dose: 5 mg Loratadine (Loratadine 10 Mg Tablet) 10 mg PO DAILY [facility] Last Admin: 03/28/22 09:29 Dose: 10 mg Non-Formulary Medication (Zinc Oxide [Desitin Rapid Relief]) 1 appl TOPICAL DAILY [facility] Nystatin (Nystatin Cream 15 Gm Tube) 1 appl TOPICAL BID [facility] Last Admin: 03/28/22 09:35 Dose: Not Given Ondansetron HCl (Ondansetron Hcl 4 Mg/2 Ml Vial) 4 mg IVPUSH Q8H PRN PRN Reason: Nausea and Vomiting Pharmacy Consult (Consult Rx Perform Med Rec) 1 each MISCELLANE ONCE PRN PRN Reason: Consult order Sodium Chloride (0.9 % Sodium Chloride Flush 3 Ml Syringe) 3 ml IVFLUSH QSHIFT [facility] Last Admin: 03/28/22 11:17 Dose: 3 ml Tamsulosin HCl (Tamsulosin Hcl 0.4 Mg Capsule) 0.8 mg PO DAILY@1700 [facility] Triamcinolone Acetonide (Triamcinolone Acet 0.1 % Cream 15 Gm Tube) 1 appl TOPICAL BID [facility] Last Admin: 03/28/22 09:35 Dose: Not Given Vitamin D (Cholecalciferol (Vitamin D3) 25 Mcg Tablet) 25 mcg PO DAILY [facility] Last Admin: 03/28/22 09:24 Dose: 25 mcg Home Medications Medication Instructions Recorded Confirmed Last Taken Type insulin glargine 100 unit/mL (3 6 unit subcut QPM 05/13/20 03/27/22 Unknown History mL) subcutaneous pen (Lantus Solostar U-100 Insulin) levothyroxine 100 mcg tablet 100 mcg PO DAILY 05/13/20 03/27/22 Unknown History (Levoxyl) insulin lispro 100 unit/mL See Rx Instructions subcut TID 05/25/20 03/27/22 Unknown History subcutaneous pen (Humalog KwikPen (U-100) Insulin) divalproex 250 mg tablet,delayed 250 mg PO BEDTIME 09/15/21 01/18/22 Unknown History release pen needle, diabetic 33 gauge x #100 ea 09/15/21 01/18/22 Unknown History (Comfort EZ Pen [place]) zinc oxide 13 % topical cream 1 appl topical DAILY 09/15/21 03/27/22 Unknown History (Desitin Rapid Relief) azithromycin 250 mg tablet 250 mg PO MOWEFR@2100 03/21/22 03/27/22 Unknown History cetirizine 10 mg tablet 10 mg PO DAILY 03/27/22 03/27/22 Unknown History citalopram 20 mg tablet 20 mg PO DAILY 03/27/22 03/27/22 Unknown History ferrous sulfate 325 mg (65 mg 325 mg PO DAILY 03/27/22 03/27/22 Unknown History iron) tablet tamsulosin 0.4 mg capsule 0.8 mg PO DAILY@1700 03/27/22 03/27/22 Unknown History Physical Exam Vital Signs: Vital Signs: Last Vital Signs Temp 98.0 F 03/28/22 11:35 Pulse 69 03/28/22 11:35 Resp 20 03/28/22 11:35 BP 163/76 H 03/28/22 11:35 Pulse Ox 98 03/28/22 11:35 O2 Del Method 03/28/22 11:35 BMI result Body Mass Index 28.5 GENERAL APPEARANCE: in no acute distress, facial features and body habitus due to down syndrome NECK: no carotid bruit, no jugular venous distention. SKIN: no suspicious lesions, warm and dry. HEART: no murmurs, regular rate and rhythm. LUNGS: clear to auscultation bilaterally. ABDOMEN: soft, nontender. EXTREMITIES: no edema. PERIPHERAL PULSES: equal. NEUROLOGIC: No gross deficits, following simple commands. Objective Labs and Meds Result diagrams: 03/28/22 11:44 03/28/22 06:35 Lab results: Laboratory Results - last 24 hr 03/27/22 03/27/22 03/27/22 15:41 16:35 16:35 WBC 6.0 RBC 3.35 L Hgb 10.5 L Hct 30.1 L MCV 89.9 MCH 31.3 MCHC 34.9 RDW 12.9 Plt Count 270 MPV 8.7 L Immature Gran % (Auto) 0.3 Neut % (Auto) 72.2 Lymph % (Auto) 17.6 L [place] % (Auto) 6.1 Eos % (Auto) 2.8 Baso % (Auto) 1.0 Lymph # (Auto) 1.1 L [place] # (Auto) 0.4 Eos # (Auto) 0.2 Baso # (Auto) 0.1 Abs Immat Gran (auto) 0.02 Absolute Neuts (auto) 4.4 Absolute Nucleated RBC 0.000 Nucleated RBC % (auto) 0.0 PT INR aPTT Heparin Protocol VBG pH VBG pCO2 VBG pO2 VBG HCO3 VBG O2 Saturation VBG Base Excess Sodium 126 L Potassium 4.7 Chloride 94 L Carbon Dioxide 25 Anion Gap 12 BUN 39 H Creatinine 1.37 Estim Creat Clear Calc 42.3 Estimated GFR 57 POC Glucose 415 H* Random Glucose 254 H Calcium 7.6 L D Magnesium 1.4 L* Total Bilirubin 0.3 AST 12 ALT 13 Alkaline Phosphatase 68 Troponin I High Sens Total Protein 5.3 L Albumin 2.7 L Triglycerides Cholesterol LDL Cholesterol, Calc HDL Cholesterol Urine Color Urine Appearance Urine pH Ur Specific [place] Urine Protein Urine Glucose (UA) Urine Ketones Urine Blood Urine Nitrite Ur Leukocyte Esterase Urine RBC Urine WBC Ur Squamous Epith Cells Urine Bacteria Hyaline Casts Acetone, Qual Negative COVID-19 (DERRICK) COVID-19 Clin Com 03/27/22 03/27/22 03/27/22 16:35 16:35 16:40 WBC RBC Hgb Hct MCV MCH MCHC RDW Plt Count MPV Immature Gran % (Auto) Neut % (Auto) Lymph % (Auto) [place] % (Auto) Eos % (Auto) Baso % (Auto) Lymph # (Auto) [place] # (Auto) Eos # (Auto) Baso # (Auto) Abs Immat Gran (auto) Absolute Neuts (auto) Absolute Nucleated RBC Nucleated RBC % (auto) PT INR aPTT Heparin Protocol VBG pH 7.32 VBG pCO2 49 VBG pO2 51 VBG HCO3 26 VBG O2 Saturation 73.0 VBG Base Excess -0.4 Sodium Potassium Chloride Carbon Dioxide Anion Gap BUN Creatinine Estim Creat Clear Calc Estimated GFR POC Glucose Random Glucose Calcium Magnesium Total Bilirubin AST ALT Alkaline Phosphatase Troponin I High Sens 9.8 Total Protein Albumin Triglycerides Cholesterol LDL Cholesterol, Calc HDL Cholesterol Urine Color Urine Appearance Urine pH Ur Specific [place] Urine Protein Urine Glucose (UA) Urine Ketones Urine Blood Urine Nitrite Ur Leukocyte Esterase Urine RBC Urine WBC Ur Squamous Epith Cells Urine Bacteria Hyaline Casts Acetone, Qual COVID-19 (DERRICK) Negative COVID-19 Clin Com See Note 03/27/22 03/27/22 03/27/22 16:48 18:33 18:34 WBC RBC Hgb Hct MCV MCH MCHC RDW Plt Count MPV Immature Gran % (Auto) Neut % (Auto) Lymph % (Auto) [place] % (Auto) Eos % (Auto) Baso % (Auto) Lymph # (Auto) [place] # (Auto) Eos # (Auto) Baso # (Auto) Abs Immat Gran (auto) Absolute Neuts (auto) Absolute Nucleated RBC Nucleated RBC % (auto) PT INR aPTT Heparin Protocol VBG pH VBG pCO2 VBG pO2 VBG HCO3 VBG O2 Saturation VBG Base Excess Sodium 130 L Potassium 4.1 Chloride 97 Carbon Dioxide 25 Anion Gap 12 BUN 37 H Creatinine 1.17 Estim Creat Clear Calc 49.5 Estimated GFR > 60 POC Glucose Random Glucose 66 D Calcium 7.8 L Magnesium Total Bilirubin 0.3 AST 13 ALT 13 Alkaline Phosphatase 71 Troponin I High Sens 58.3 H D Total Protein 5.4 L Albumin 2.8 L Triglycerides Cholesterol LDL Cholesterol, Calc HDL Cholesterol Urine Color Yellow Urine Appearance Clear Urine pH 5.5 Ur Specific [place] <= 1.005 Urine Protein 100 (2+) H Urine Glucose (UA) 500 H Urine Ketones Negative Urine Blood Trace H Urine Nitrite Negative Ur Leukocyte Esterase Negative Urine RBC 0-2 Urine WBC 0-5 Ur Squamous Epith Cells 0-2 Urine Bacteria None Seen Hyaline Casts 0-2 Acetone, Qual COVID-19 (DERRICK) COVID-19 Clin Com 03/27/22 03/27/22 03/27/22 21:09 22:27 22:27 WBC 6.1 RBC 3.61 L Hgb 11.0 L Hct 32.1 L MCV 88.9 MCH 30.5 MCHC 34.3 RDW 12.7 Plt Count 322 MPV 8.8 L Immature Gran % (Auto) Neut % (Auto) Lymph % (Auto) [place] % (Auto) Eos % (Auto) Baso % (Auto) Lymph # (Auto) [place] # (Auto) Eos # (Auto) Baso # (Auto) Abs Immat Gran (auto) Absolute Neuts (auto) Absolute Nucleated RBC 0.000 Nucleated RBC % (auto) 0.0 PT 10.0 INR 0.9 aPTT Heparin Protocol 32.3 L VBG pH VBG pCO2 VBG pO2 VBG HCO3 VBG O2 Saturation VBG Base Excess Sodium Potassium Chloride Carbon Dioxide Anion Gap BUN Creatinine Estim Creat Clear Calc Estimated GFR POC Glucose Random Glucose Calcium Magnesium Total Bilirubin AST ALT Alkaline Phosphatase Troponin I High Sens 86.1 H Total Protein Albumin Triglycerides Cholesterol LDL Cholesterol, Calc HDL Cholesterol Urine Color Urine Appearance Urine pH Ur Specific [place] Urine Protein Urine Glucose (UA) Urine Ketones Urine Blood Urine Nitrite Ur Leukocyte Esterase Urine RBC Urine WBC Ur Squamous Epith Cells Urine Bacteria Hyaline Casts Acetone, Qual COVID-19 (DERRICK) COVID-19 Clin Com 03/28/22 03/28/22 03/28/22 00:30 02:02 06:35 WBC 9.7 RBC 3.74 L Hgb 11.5 L Hct 34.4 L MCV 92.0 MCH 30.7 MCHC 33.4 RDW 12.8 Plt Count 324 MPV 9.5 Immature Gran % (Auto) 0.4 Neut % (Auto) 78.4 H Lymph % (Auto) 9.6 L [place] % (Auto) 6.6 Eos % (Auto) 4.2 H Baso % (Auto) 0.8 Lymph # (Auto) 0.9 L [place] # (Auto) 0.6 Eos # (Auto) 0.4 Baso # (Auto) 0.1 Abs Immat Gran (auto) 0.04 H Absolute Neuts (auto) 7.6 Absolute Nucleated RBC 0.000 Nucleated RBC % (auto) 0.0 PT INR aPTT Heparin Protocol VBG pH VBG pCO2 VBG pO2 VBG HCO3 VBG O2 Saturation VBG Base Excess Sodium Potassium Chloride Carbon Dioxide Anion Gap BUN Creatinine Estim Creat Clear Calc Estimated GFR POC Glucose 173 H Random Glucose Calcium Magnesium Total Bilirubin AST ALT Alkaline Phosphatase Troponin I High Sens 58.8 H Total Protein Albumin Triglycerides Cholesterol LDL Cholesterol, Calc HDL Cholesterol Urine Color Urine Appearance Urine pH Ur Specific [place] Urine Protein Urine Glucose (UA) Urine Ketones Urine Blood Urine Nitrite Ur Leukocyte Esterase Urine RBC Urine WBC Ur Squamous Epith Cells Urine Bacteria Hyaline Casts Acetone, Qual COVID-19 (DERRICK) COVID-19 Clin Com 03/28/22 03/28/22 03/28/22 06:35 06:35 06:35 WBC RBC Hgb Hct MCV MCH MCHC RDW Plt Count MPV Immature Gran % (Auto) Neut % (Auto) Lymph % (Auto) [place] % (Auto) Eos % (Auto) Baso % (Auto) Lymph # (Auto) [place] # (Auto) Eos # (Auto) Baso # (Auto) Abs Immat Gran (auto) Absolute Neuts (auto) Absolute Nucleated RBC Nucleated RBC % (auto) PT Cancelled 10.4 INR Cancelled 0.9 aPTT Heparin Protocol > 200.0 H* D VBG pH VBG pCO2 VBG pO2 VBG HCO3 VBG O2 Saturation VBG Base Excess Sodium 129 L Potassium 5.2 H D Chloride 102 Carbon Dioxide 16 L Anion Gap 16 BUN 32 H Creatinine 1.36 Estim Creat Clear Calc 47.2 Estimated GFR 58 POC Glucose Random Glucose 557 H* Calcium 7.5 L Magnesium 1.9 Total Bilirubin AST ALT Alkaline Phosphatase Troponin I High Sens Total Protein Albumin Triglycerides 217 Cholesterol 150 D LDL Cholesterol, Calc 71 HDL Cholesterol 36 Urine Color Urine Appearance Urine pH Ur Specific [place] Urine Protein Urine Glucose (UA) Urine Ketones Urine Blood Urine Nitrite Ur Leukocyte Esterase Urine RBC Urine WBC Ur Squamous Epith Cells Urine Bacteria Hyaline Casts Acetone, Qual COVID-19 ([facility]ERRICK) COVID-19 Clin Com 03/28/22 03/28/22 03/28/22 07:14 08:32 08:39 WBC RBC Hgb Hct MCV MCH MCHC RDW Plt Count MPV Immature Gran % (Auto) Neut % (Auto) Lymph % (Auto) [place] % (Auto) Eos % (Auto) Baso % (Auto) Lymph # (Auto) [place] # (Auto) Eos # (Auto) Baso # (Auto) Abs Immat Gran (auto) Absolute Neuts (auto) Absolute Nucleated RBC Nucleated RBC % (auto) PT INR aPTT Heparin Protocol 98.6 H D VBG pH VBG pCO2 VBG pO2 VBG HCO3 VBG O2 Saturation VBG Base Excess Sodium Potassium Chloride Carbon Dioxide Anion Gap BUN Creatinine Estim Creat Clear Calc Estimated GFR POC Glucose 501 H* 461 H* Random Glucose Calcium Magnesium Total Bilirubin AST ALT Alkaline Phosphatase Troponin I High Sens Total Protein Albumin Triglycerides Cholesterol LDL Cholesterol, Calc HDL Cholesterol Urine Color Urine Appearance Urine pH Ur Specific [place] Urine Protein Urine Glucose (UA) Urine Ketones Urine Blood Urine Nitrite Ur Leukocyte Esterase Urine RBC Urine WBC Ur Squamous Epith Cells Urine Bacteria Hyaline Casts Acetone, Qual COVID-19 (DERRICK) COVID-19 [employer] 03/28/22 03/28/22 03/28/22 09:43 09:46 11:01 WBC RBC Hgb Hct MCV MCH MCHC RDW Plt Count MPV Immature Gran % (Auto) Neut % (Auto) Lymph % (Auto) [place] % (Auto) Eos % (Auto) Baso % (Auto) Lymph # (Auto) [place] # (Auto) Eos # (Auto) Baso # (Auto) Abs Immat Gran (auto) Absolute Neuts (auto) Absolute Nucleated RBC Nucleated RBC % (auto) PT INR aPTT Heparin Protocol 40.6 L D VBG pH VBG pCO2 VBG pO2 VBG HCO3 VBG O2 Saturation VBG Base Excess Sodium Potassium Chloride Carbon Dioxide Anion Gap BUN Creatinine Estim Creat Clear Calc Estimated GFR POC Glucose 332 H 222 H Random Glucose Calcium Magnesium Total Bilirubin AST ALT Alkaline Phosphatase Troponin I High Sens Total Protein Albumin Triglycerides Cholesterol LDL Cholesterol, Calc HDL Cholesterol Urine Color Urine Appearance Urine pH Ur Specific [place] Urine Protein Urine Glucose (UA) Urine Ketones Urine Blood Urine Nitrite Ur Leukocyte Esterase Urine RBC Urine WBC Ur Squamous Epith Cells Urine Bacteria Hyaline Casts Acetone, Qual COVID-19 ([facility]ERRICK) COVID-19 Clin Com 03/28/22 03/28/22 11:23 11:44 WBC 9.6 RBC 3.81 L Hgb 11.6 L Hct 34.1 L MCV 89.5 MCH 30.4 MCHC 34.0 RDW 13.0 Plt Count 343 MPV 8.7 L Immature Gran % (Auto) Neut % (Auto) Lymph % (Auto) [place] % (Auto) Eos % (Auto) Baso % (Auto) Lymph # (Auto) [place] # (Auto) Eos # (Auto) Baso # (Auto) Abs Immat Gran (auto) Absolute Neuts (auto) Absolute Nucleated RBC 0.000 Nucleated RBC % (auto) 0.0 PT 9.8 L INR 0.9 aPTT Heparin Protocol 33.0 L VBG pH VBG pCO2 VBG pO2 VBG HCO3 VBG O2 Saturation VBG Base Excess Sodium Potassium Chloride Carbon Dioxide Anion Gap BUN Creatinine Estim Creat Clear Calc Estimated GFR POC Glucose Random Glucose Calcium Magnesium Total Bilirubin AST ALT Alkaline Phosphatase Troponin I High Sens Total Protein Albumin Triglycerides Cholesterol LDL Cholesterol, Calc HDL Cholesterol Urine Color Urine Appearance Urine pH Ur Specific [place] Urine Protein Urine Glucose (UA) Urine Ketones Urine Blood Urine Nitrite Ur Leukocyte Esterase Urine RBC Urine WBC Ur Squamous Epith Cells Urine Bacteria Hyaline Casts Acetone, Qual COVID-19 ([facility]ERRICK) COVID-19 Clin Com Imaging Radiologist's impression: Impressions Chest X-Ray 03/27/22 19:29 IMPRESSION: 1. Hypoinflated lungs. No acute pulmonary process. Assessment and Plan (1) Chest pain: Status: Acute Plan 41 gentleman with Down syndrome who is presenting with reported history of chest pain. High sensitivity troponin levels are 58, 86 and 58. EKG is not showing any dynamic changes. He is a poor historian it is difficult to say whether he had chest discomfort or not. He is saying was mild in intensity. In any case currently is difficult to say whether there is something actually going on or not. I will start with echocardiography to assess for any wall motion abnormalities. Will do a Lexiscan on him tomorrow he has no wall motion abnormalities. If Lexiscan is normal then I would let him go home and we will follow him clinically in the coming months. Other hand if he has wall motion abnormality then we may need to discuss cardiac catheterization. I have explained that to the mother who is healthcare proxy. Thank you for allowing me to participate in the care of your patient. Please feel free to contact me if you have any questions. Procedures Date of Service Date of Service: 03/28/22
--- NOTE | 2022-03-28 12:49 | MHC.CDI.CONC ---
CDI Concurrent Query Documentation Clarification: PHYSICIAN'S DOCUMENTATION REQUEST Date of Query: 03/28/22 1249 Patient Name: Bernard Navarro Admit Date: 03/27/22 Dear Doctor, A review of the medical record indicates additional documentation may be needed. Please review below and update the documentation accordingly. Clinical Indicators: Risk Factors/Clinical Indicators/Treatments Labs: magnesium 1.4 IV Magnesium sulfate Based on the above, could you clarify in the Progress Notes the appropriate diagnosis, if significant, that supports the above abnormalities and additional evaluation, monitoring, and/or treatment rendered: Hypomagnesemia or other etiology of lab findings Labs indicate a diagnosis of (please specify) Other (please specify) Unable to determine Use of terms such as suspected, likely, concern for, or probable (associated with a specific diagnosis that is being evaluated, monitored, or treated as if it exists) are acceptable and can be coded in the inpatient setting, when documented at the time of discharge. Thank you, Pili Grover [facility], CDIS Extension: [phone] Please use your independent medical judgment in providing your response. THIS QUERY IS PART OF THE PERMANENT MEDICAL RECORD Provider Response: Other Other Diagnosis: see note
[2022-03-28 14:10] LABS: Anion Gap 11 (12-20); Blood Urea Nitrogen 29 mg/dL (9-16); Calcium 7.8 mg/dL (8.4-10.2); Carbon Dioxide 23 mmol/L (22-29); Chloride 109 mmol/L (96-108); Creatinine Clr Calc Pharmacy 64.3; Estimated Glomerular Filt Rate > 60; Glucose Random 148 mg/dL (60-115); Potassium 4.4 mmol/L (3.3-5.1); Sodium 139 mmol/L (135-145)
[2022-03-28] MEDS: Isosorbide Mononitrate 30 MG TAB.ER.24H PO (14:51)
--- NOTE | 2022-03-28 14:54 | HE.PHANOTE ---
Contacted pt's PCP and confirmed that patient should be on divalproex 250mg DR daily as well as Brovana nebulizer daily. Notified Dr. Ness
[2022-03-28 16:03] LABS: Glucose, Whole Blood 176 mg/dL (60-115)
[2022-03-28] MEDS: Tamsulosin HCL 0.4 MG CAPSULE 0.8 MG PO (16:33)
[2022-03-28 19:39] LABS: PTT Heparin Drip 43.7 SEC (53-77.9)
[2022-03-28 19:54] LABS: Glucose, Whole Blood 85 mg/dL (60-115)
[2022-03-28] MEDS: Heparin Sodium,Porcine 5,000 UNIT/ML VIAL 2200 UNIT IVPUSH (21:57)
[2022-03-28] MEDS: ondansetron HCL 4 MG/2 ML VIAL IVPUSH (21:57)
[2022-03-28] MEDS: Divalproex Sodium 250 MG TABLET.DR PO (21:57)
[2022-03-29] VITALS (8 sets, daily range): BP systolic 130–157; BP diastolic 62–70; PULSE 65–87; RESP 14–75; TEMP 36.2–37.1; O2SAT 95–100
[2022-03-29] MEDS: 0.9 % Sodium Chloride 1,000 ML 250 ML IVCONT ×3 (04:27→08:11)
[2022-03-29] MEDS: 0.9 % Sodium Chloride Flush 3 ML SYRINGE IVFLUSH ×3 (04:28→16:22)
[2022-03-29 04:42] LABS: Hematocrit 28.8 % (42.0-52.0); Hemoglobin 9.7 g/dl (14.0-18.0); Mean Corpuscular HGB Conc 33.7 g/dl (31.0-36.0); Mean Corpuscular Hemoglobin 30.4 pg (27.0-33.0); Mean Corpuscular Volume 90.3 fL (80.0-98.0); Mean Platelet Volume 9.4 fL (9.4-12.4); Platelet Count 320 X10*3/uL (160-400); Red Blood Count 3.19 X10*6/uL (4.60-5.80); Red Cell Distribution Width 13.2 % (11.0-16.0); White Blood Count 12.4 X10*3/uL (4.8-10.8)
[2022-03-29 04:51] LABS: INTERNATIONAL NORM RATIO 0.9 (0.9-1.1); Prothrombin Time 10.6 SEC (10.0-13.1)
[2022-03-29 05:13] LABS: Anion Gap 14 (12-20); Blood Urea Nitrogen 21 mg/dL (9-16); Calcium 7.4 mg/dL (8.4-10.2); Carbon Dioxide 18 mmol/L (22-29); Chloride 113 mmol/L (96-108); Creatinine Clr Calc Pharmacy 63.6; Estimated Glomerular Filt Rate > 60; Glucose Random 195 mg/dL (60-115); Potassium 4.7 mmol/L (3.3-5.1); Sodium 140 mmol/L (135-145)
--- NOTE | 2022-03-29 05:51 | PC.NURSE ---
attp sub-therapeutic at 43.3 1800. 2200u bolus heparin administered per protocol, IV heparin drip in creased from 12u to 14u per protocol. repeat attp ordered.
[2022-03-29 07:23] LABS: Glucose, Whole Blood 182 mg/dL (60-115)
[2022-03-29 07:23] LABS: PTT Heparin Drip 181.8 SEC (53-77.9)
[2022-03-29] MEDS: Albuterol/Iprat 2.5/0.5MG 3 ML AMPUL.NEB INHALE ×2 (07:40→18:51)
[2022-03-29] MEDS: Isosorbide Mononitrate 30 MG TAB.ER.24H PO (07:59)
[2022-03-29] MEDS: Ascorbic Acid 500 MG TABLET PO (07:59)
[2022-03-29] MEDS: Aspirin Enteric Coated 81 MG TABLET.DR PO (07:59)
[2022-03-29] MEDS: Famotidine 20 MG TABLET 10 MG PO ×2 (07:59→20:08)
[2022-03-29] MEDS: Levothyroxine Sodium 100 MCG TABLET PO (07:59)
[2022-03-29] MEDS: Docusate Sodium 100 MG CAPSULE PO (08:00)
[2022-03-29] MEDS: lisinopriL 5 MG TABLET PO (08:00)
[2022-03-29] MEDS: Loratadine 10 MG TABLET PO (08:00)
[2022-03-29] MEDS: Acetaminophen 325 MG TABLET 650 MG PO ×2 (08:00→20:07)
[2022-03-29] MEDS: Escitalopram Oxalate 10 MG TABLET PO (08:00)
[2022-03-29] MEDS: Folic Acid 1 MG TABLET PO (08:00)
[2022-03-29] MEDS: Cholecalciferol (Vitamin D3) 25 MCG TABLET PO (08:00)
[2022-03-29] MEDS: Ferrous Sulfate 324 MG TABLET.DR PO (08:00)
[2022-03-29] MEDS: Insulin Lispro 100 UNIT/ML 3 ML VIAL SUBCUT ×4 (08:05→21:57)
[2022-03-29 08:11] LABS: PTT Heparin Drip 103.5 SEC (53-77.9)
[2022-03-29 08:21] LABS: Estimated Average Glucose 217 mg/dL; Hemoglobin A1c % 9.2 %
--- NOTE | 2022-03-29 08:32 | P.CDIC_ITS ---
CDI Concurrent Query Documentation Clarification: PHYSICIAN'S DOCUMENTATION REQUEST Date of Query: 03/29/22 0832 Patient Name: Bernard Navarro Admit Date: 03/27/22 Dear Doctor, A review of the medical record indicates additional documentation may be needed. Please review below and update the documentation accordingly. Clinical Indicators: Is there a diagnosis that correlates with these lab findings: Risk Factors/Clinical Indicators/Treatments LABS: calcium 7.8 7.4 L Based on the above, could you clarify in the Progress Notes the appropriate diagnosis, if significant, that supports the above abnormalities and additional evaluation, monitoring, and/or treatment rendered: * Hypocalcemia or other etiology of lab findings * Labs indicate a diagnosis of (please specify) * Other (please specify) * Unable to determine Use of terms such as suspected, likely, concern for, or probable (associated with a specific diagnosis that is being evaluated, monitored, or treated as if it exists) are acceptable and can be coded in the inpatient setting, when documented at the time of discharge. Thank you, Pili Grover [facility], CDIS Extension: [phone] Please use your independent medical judgment in providing your response. THIS QUERY IS PART OF THE PERMANENT MEDICAL RECORD Provider Response: Other Other Diagnosis: see note
[2022-03-29 08:58] LABS: PTT Heparin Drip 58.7 SEC (53-77.9)
[2022-03-29] MEDS: Heparin Sodium,Porcine/1/2NS 25,000 UNIT/250 ML IV.SOLN 5.57 UNIT IVCONT (10:02)
[2022-03-29] MEDS: Triamcinolone Acet 0.1 % Cream 15 GM TUBE 1 APPL TOPICAL (10:14)
[2022-03-29] MEDS: Nystatin Cream 15 GM TUBE 1 APPL TOPICAL (10:14)
--- NOTE | 2022-03-29 11:03 | PM.PNCARD ---
Subjective Subjective Date of Service: 03/29/22 <KOBY Godwin - Last Filed: 03/29/22 11:36> 03/29/22 <Jordan Nevarez MD - Last Filed: 03/29/22 13:36> Principal diagnosis: chest discomfort, troponin elevation <KOBY Godwin - Last Filed: 03/29/22 11:36> Interval history: Seen at 1045. Today he reports feeling well and denies any chest discomfort. He has Downs Syndrome and is poor historian. IV Heparin is infusing. <KOBY Godwin - Last Filed: 03/29/22 11:36> Review of Systems Review of Systems No chest pain <KOBY Godwin Last Filed: 03/29/22 11:36> Yes Unobtainable due to mental status <KOBY Godwin - Last Filed: 03/29/22 11:36> Physical Exam Vital Signs: Last Vital Signs Temp 97.6 F 03/29/22 07:25 Pulse 82 03/29/22 07:41 Resp 18 03/29/22 07:41 BP 157/70 H 03/29/22 07:25 Pulse Ox 96 03/29/22 07:25 O2 Del Method 03/29/22 07:25 BMI result Body Mass Index 28.5 <KOBY Godwin Last Filed: 03/29/22 11:36> Const General: cooperative, comfortable and no acute distress <KOBY Godwin - Last Filed: 03/29/22 11:36> Orientation/consciousness: patient oriented x3 <KOBY Godwin - Last Filed: 03/29/22 11:36> Neck Neck: Yes normal visual inspection and Yes no JVD <KOBY Godwin Last Filed: 03/29/22 11:36> Resp Effort & Inspection: normal respiratory effort <KOBY Godwin Last Filed: 03/29/22 11:36> Auscultation: clear to auscultation bilaterally, no crackles, no rales, no rhonchi and no wheezes <KOBY Godwin - Last Filed: 03/29/22 11:36> Cardio Jugular venous distension: no JVD <KOBY Godwin Last Filed: 03/29/22 11:36> Rate: regular rate <KOBY Godwin Last Filed: 03/29/22 11:36> Rhythm: regular rhythm <KOBY Godwin Last Filed: 03/29/22 11:36> Heart sounds: S1 normal heart sound present, S2 normal heart sound present, no gallops, no murmurs and no rubs <KOBY Godwin Last Filed: 03/29/22 11:36> Neuro General: patient oriented x3 <KOBY Godwin Last Filed: 03/29/22 11:36> Extrem General: Yes normal to inspection <KOYB Godwin - Last Filed: 03/29/22 11:36> Psych Appearance: grossly normal <KOBY Godwin Last Filed: 03/29/22 11:36> Mental Status: mental status grossly normal <KOBY Godwin Last Filed: 03/29/22 11:36> Speech and movement: Normal speech and movement present <KOBY Godwin Last Filed: 03/29/22 11:36> Objective Labs and Meds Result diagrams: : 03/29/22 04:22 03/29/22 04:22 <KOBY Godwin Last Filed: 03/29/22 11:36> Lab results: Laboratory Results - last 24 hr 03/28/22 03/28/22 03/28/22 11:01 11:23 11:44 WBC 9.6 RBC 3.81 L Hgb 11.6 L Hct 34.1 L MCV 89.5 MCH 30.4 MCHC 34.0 RDW 13.0 Plt Count 343 MPV 8.7 L Absolute Nucleated RBC 0.000 Nucleated RBC % (auto) 0.0 PT 9.8 L INR 0.9 aPTT Heparin Protocol 33.0 L Sodium Potassium Chloride Carbon Dioxide Anion Gap BUN Creatinine Estim Creat Clear Calc Estimated GFR POC Glucose 222 H Random Glucose Estimat Average Glucose Hemoglobin A1c % Calcium 03/28/22 03/28/22 03/28/22 13:43 15:53 18:28 WBC RBC Hgb Hct MCV MCH MCHC RDW Plt Count MPV Absolute Nucleated RBC Nucleated RBC % (auto) PT INR aPTT Heparin Protocol 43.7 L D Sodium 139 Potassium 4.4 Chloride 109 H Carbon Dioxide 23 Anion Gap 11 L BUN 29 H Creatinine 0.97 Estim Creat Clear Calc 64.3 Estimated GFR > 60 POC Glucose 176 H Random Glucose 148 H D Estimat Average Glucose Hemoglobin A1c % Calcium 7.8 L 03/28/22 03/29/22 03/29/22 19:45 04:22 04:22 WBC 12.4 H RBC 3.19 L Hgb 9.7 L Hct 28.8 L MCV 90.3 MCH 30.4 MCHC 33.7 RDW 13.2 Plt Count 320 MPV 9.4 Absolute Nucleated RBC 0.000 Nucleated RBC % (auto) 0.0 PT 10.6 INR 0.9 aPTT Heparin Protocol Sodium Potassium Chloride Carbon Dioxide Anion Gap BUN Creatinine Estim Creat Clear Calc Estimated GFR POC Glucose 85 Random Glucose Estimat Average Glucose Hemoglobin A1c % Calcium 03/29/22 03/29/22 03/29/22 04:22 04:22 06:05 WBC RBC Hgb Hct MCV MCH MCHC RDW Plt Count MPV Absolute Nucleated RBC Nucleated RBC % (auto) PT INR aPTT Heparin Protocol 181.8 H* D Sodium 140 Potassium 4.7 Chloride 113 H Carbon Dioxide 18 L Anion Gap 14 BUN 21 H Creatinine 0.98 Estim Creat Clear Calc 63.6 Estimated GFR > 60 POC Glucose Random Glucose 195 H Estimat Average Glucose 217 Hemoglobin A1c % 9.2 Calcium 7.4 L 03/29/22 03/29/22 03/29/22 07:17 07:49 08:28 WBC RBC Hgb Hct MCV MCH MCHC RDW Plt Count MPV Absolute Nucleated RBC Nucleated RBC % (auto) PT INR aPTT Heparin Protocol 103.5 H D 58.7 D Sodium Potassium Chloride Carbon Dioxide Anion Gap BUN Creatinine Estim Creat Clear Calc Estimated GFR POC Glucose 182 H Random Glucose Estimat Average Glucose Hemoglobin A1c % Calcium <KOBY Godwin - Last Filed: 03/29/22 11:36> Progress Note: A&P Assessment and plan (1) ACS (acute coronary syndrome): Status: Acute <KOBY Godwin - Last Filed: 03/29/22 11:36> Assessment and Plan: Admit with report of chest discomfort. EKG without ischemia. Troponin with mild elevation. Has cardiac risk factors, without known CAD hx. Has been in IV Heparin for anticoagulation, for 48 hr. He was continued on aspirin and lisinopril, and started on Imdur. Echo showed EF 60-65%, basal inferior akinetic. Today reports no chest discomfort. Accuracy of this is unclear. Nuclear stress test is being completed today, to eval for any ischemia. If test is normal, then he can likely be discharged and we will arrange for cardiology follow up. If test is abnormal, further treatment plan to be determined. Possibility of cardiac cath previously discussed by Dr Nevarez with his mother. <KOBY Godwin - Last Filed: 03/29/22 11:36> (2) Chest pain: Status: Acute <KOBY Godwin - Last Filed: 03/29/22 11:36> Assessment and Plan: Seen and examined at bedside. Doing well. No CP. Echo did not show any wall motion. waiting for stress result. <Jordan Nevarez MD - Last Filed: 03/29/22 13:36> (3) Elevated troponin: Status: Acute <KOBY Godwin - Last Filed: 03/29/22 11:36> Assessment and Plan: Mild elevation this admit. <KOBY Godwin - Last Filed: 03/29/22 11:36> (4) Down syndrome: Status: Acute <KOBY Godwin - Last Filed: 03/29/22 11:36> Time Spent With Patient Time: Total time spent is greater than 50% in coordination of care (as documented) at patient's floor/unit and/or counseling patient: 22 <KOBY Godwin - Last Filed: 03/29/22 11:36> Progress Note: Quality Stroke Does the patient have a stroke diagnosis?: No <KOBY Godwin Last Filed: 03/29/22 11:36> Procedures Date of Service Date of Service: 03/29/22 <KOBY Godwin - Last Filed: 03/29/22 11:36>
[2022-03-29 11:20] LABS: Glucose, Whole Blood 133 mg/dL (60-115)
--- NOTE | 2022-03-29 12:00 | P.PNIM_ITS ---
Subjective Subjective Date of Service: 03/29/22 Interval History: resting comfortably denies chest pain, no shortness of breath, heparin held this morning due to elevated PTT, patient had uneventful night, blood sugars improved. Review of Systems Review of Systems: Yes all other systems are reviewed and are negative Physical Exam Vital Signs: Vital Signs: Last Vital Signs Temp 97.6 F 03/29/22 07:25 Pulse 82 03/29/22 07:41 Resp 18 03/29/22 07:41 BP 157/70 H 03/29/22 07:25 Pulse Ox 96 03/29/22 07:25 O2 Del Method 03/29/22 07:25 BMI result Body Mass Index 28.5 Const: Other: General resting comfortably in no acute distress.? Neck no JVD. CVS? regular rate rhythm, Respiratory lungs clear to auscultation, no respiratory distress, no wheeze, no rhonchi. Gastrointestinal abdomen soft, nontender, bowel sounds audible, no guarding , no rigidity. Extremities no edema. Neuro moving all 4 extremity, speech clear. Skin no rash Objective Data Active Medications Acetaminophen (Acetaminophen 325 Mg Tablet) 650 mg PO Q6H PRN PRN Reason: Pain, Mild (Pain Scale 1-3) Last Admin: 03/29/22 08:00 Dose: 650 mg Documented By: HUI Albuterol/Ipratropium (Albuterol/Iprat 2.5/0.5mg 3 Ml Ampul.Neb) 3 ml INHALE BID [facility] Last Admin: 03/29/22 07:40 Dose: 3 ml Documented By: NELLY Ascorbic Acid (Ascorbic Acid 500 Mg Tablet) 500 mg PO DAILY [facility] Last Admin: 03/29/22 07:59 Dose: 500 mg Documented By: HUI Aspirin (Aspirin Enteric Coated 81 Mg Tablet.Dr) 81 mg PO DAILY [facility] Last Admin: 03/29/22 07:59 Dose: 81 mg Documented By: HUI Atorvastatin Calcium (Atorvastatin Calcium 10 Mg Tablet) 10 mg PO DAILY@2100 [facility] Last Admin: 03/28/22 21:57 Dose: 10 mg Documented By: VALENTINE Azithromycin (Azithromycin 250 Mg Tablet) 250 mg PO MOWEFR@2100 [facility] Dextrose (Dextrose 50 % 25 Gm/50 Ml Syringe) 25 gm IVPUSH Q15M PRN; Protocol PRN Reason: per Hypoglycemia Standing Ord. Divalproex Sodium (Divalproex Sodium 250 Mg Tablet.) 250 mg PO BEDTIME [facility] Last Admin: 03/28/22 21:57 Dose: 250 mg Documented By: VALENTINE Docusate Sodium (Docusate Sodium 100 Mg Capsule) 100 mg PO DAILY PRN PRN Reason: Constipation Last Admin: 03/29/22 08:00 Dose: 100 mg Documented By: HUI Escitalopram Oxalate (Escitalopram Oxalate 10 Mg Tablet) 10 mg PO DAILY [facility] Last Admin: 03/29/22 08:00 Dose: 10 mg Documented By: HUI Famotidine (Famotidine 20 Mg Tablet) 10 mg PO BID [facility] Last Admin: 03/29/22 07:59 Dose: 10 mg Documented By: HUI Ferrous Sulfate (Ferrous Sulfate 324 Mg Tablet.) 324 mg PO DAILY [facility] Last Admin: 03/29/22 08:00 Dose: 324 mg Documented By: HUI Folic Acid (Folic Acid 1 Mg Tablet) 1 mg PO DAILY [facility] Last Admin: 03/29/22 08:00 Dose: 1 mg Documented By: HUI Glucose (Glucose Gel 15 Gm Gel..Gram.) 15 gm PO Q15M PRN; Protocol PRN Reason: per Hypoglycemia Standing Ord. Heparin Sodium (Porcine) (Heparin Sodium,Porcine 5,000 Unit/Ml Vial) 2,200 unit 40 unit/kg (2200 unit) IVPUSH PROTOCOL BOLUS PRN; Protocol PRN Reason: 40 unit/kg - Heparin Protocol Last Admin: 03/28/22 21:57 Dose: 2,200 unit Documented By: VALENTINE Heparin Sodium (Porcine) (Heparin Sodium,Porcine 5,000 Unit/Ml Vial) 4,500 unit 80 unit/kg (4500 unit) IVPUSH PROTOCOL BOLUS PRN; Protocol PRN Reason: 80 unit/kg - Heparin Protocol Heparin Sodium/Sodium Chloride (Heparin Sodium,Porcine/1/2ns) 25,000 unit in 250 mls @ 0 mls/hr IVCONT .Q0M [facility]; Protocol Last Admin: 03/29/22 10:02 Dose: 10 units/kg/hr, 5.57 mls/hr Documented By: HUI Co-signed By: TOBY Insulin Glargine (Insulin Glargine,Hum.Rec.Anlog 100 Unit/Ml 10 Ml Vial) 6 unit SUBCUT DAILY@2100 [facility] Last Admin: 03/28/22 21:57 Dose: 6 unit Documented By: VALENTINE Insulin Human Lispro (Insulin Lispro 100 Unit/Ml 3 Ml Vial) 0 unit SUBCUT QIDACHS [facility]; Protocol Last Admin: 03/29/22 08:05 Dose: 4 unit Documented By: HUI Isosorbide Mononitrate (Isosorbide Mononitrate 30 Mg Tab.Er.24h) 30 mg PO DAILY [facility]; Protocol Last Admin: 03/29/22 07:59 Dose: 30 mg Documented By: HUI Levothyroxine Sodium (Levothyroxine Sodium 100 Mcg Tablet) 100 mcg PO DAILY [facility] Last Admin: 03/29/22 07:59 Dose: 100 mcg Documented By: HUI Lisinopril (Lisinopril 5 Mg Tablet) 5 mg PO DAILY [facility]; Protocol Last Admin: 03/29/22 08:00 Dose: 5 mg Documented By: HUI Loratadine (Loratadine 10 Mg Tablet) 10 mg PO DAILY [facility] Last Admin: 03/29/22 08:00 Dose: 10 mg Documented By: HUI Non-Formulary Medication (Arformoterol [Brovana]) 2 ml INHALE DAILY [facility] Nystatin (Nystatin Cream 15 Gm Tube) 1 appl TOPICAL BID [facility] Last Admin: 03/29/22 10:14 Dose: 1 appl Documented By: HUI Ondansetron HCl (Ondansetron Hcl 4 Mg/2 Ml Vial) 4 mg IVPUSH Q8H PRN PRN Reason: Nausea and Vomiting Last Admin: 03/28/22 21:57 Dose: 4 mg Documented By: VALENTINE Pharmacy Consult (Consult Rx Perform Med Rec) 1 each MISCELLANE ONCE PRN PRN Reason: Consult order Sodium Chloride (0.9 % Sodium Chloride Flush 3 Ml Syringe) 3 ml IVFLUSH QSHIFT [facility] Last Admin: 03/29/22 08:07 Dose: 3 ml Documented By: HUI Tamsulosin HCl (Tamsulosin Hcl 0.4 Mg Capsule) 0.8 mg PO DAILY@1700 [facility] Last Admin: 03/28/22 16:33 Dose: 0.8 mg Documented By: REJI Triamcinolone Acetonide (Triamcinolone Acet 0.1 % Cream 15 Gm Tube) 1 appl TOPICAL BID [facility] Last Admin: 03/29/22 10:14 Dose: 1 appl Documented By: HUI Vitamin D (Cholecalciferol (Vitamin D3) 25 Mcg Tablet) 25 mcg PO DAILY [facility] Last Admin: 03/29/22 08:00 Dose: 25 mcg Documented By: HUI Labs CBC & Chem 7: 03/29/22 04:22 03/29/22 04:22 Labs: Laboratory Results - last 24 hr 03/28/22 03/28/22 03/28/22 11:23 13:43 15:53 MCV MCH MCHC RDW Plt Count MPV Absolute Nucleated RBC Nucleated RBC % (auto) PT 9.8 L INR 0.9 aPTT Heparin Protocol Anion Gap 11 L Estim Creat Clear Calc 64.3 Estimated GFR > 60 POC Glucose 176 H Random Glucose 148 H D Estimat Average Glucose Hemoglobin A1c % Calcium 7.8 L 03/28/22 03/28/22 03/29/22 18:28 19:45 04:22 MCV MCH MCHC RDW Plt Count MPV Absolute Nucleated RBC Nucleated RBC % (auto) PT 10.6 INR 0.9 aPTT Heparin Protocol 43.7 L D Anion Gap Estim Creat Clear Calc Estimated GFR POC Glucose 85 Random Glucose Estimat Average Glucose Hemoglobin A1c % Calcium 03/29/22 03/29/22 03/29/22 04:22 04:22 04:22 MCV 90.3 MCH 30.4 MCHC 33.7 RDW 13.2 Plt Count 320 MPV 9.4 Absolute Nucleated RBC 0.000 Nucleated RBC % (auto) 0.0 PT INR aPTT Heparin Protocol Anion Gap 14 Estim Creat Clear Calc 63.6 Estimated GFR > 60 POC Glucose Random Glucose 195 H Estimat Average Glucose 217 Hemoglobin A1c % 9.2 Calcium 7.4 L 03/29/22 03/29/22 03/29/22 06:05 07:17 07:49 MCV MCH MCHC RDW Plt Count MPV Absolute Nucleated RBC Nucleated RBC % (auto) PT INR aPTT Heparin Protocol 181.8 H* D 103.5 H D Anion Gap Estim Creat Clear Calc Estimated GFR POC Glucose 182 H Random Glucose Estimat Average Glucose Hemoglobin A1c % Calcium 03/29/22 03/29/22 08:28 11:16 MCV MCH MCHC RDW Plt Count MPV Absolute Nucleated RBC Nucleated RBC % (auto) PT INR aPTT Heparin Protocol 58.7 D Anion Gap Estim Creat Clear Calc Estimated GFR POC Glucose 133 H Random Glucose Estimat Average Glucose Hemoglobin A1c % Calcium Assessment and Plan (1) Hyperglycemia: Status: Acute Plan 41-year-old male with past medical history of Down syndrome presents to the hospital with chest pain found to have ACS # chest pain/ACS - unreliable historian, no chest pain, no acute ischemic change on EKG, elevated troponins with delta, total cholesterol 150 LDL 71 - risk factors include diabetes, as well as Down syndrome - on heparin GGT, Echo showed inferior wall akinetic, undergoing stress test today, signed consent for patient's stress test, since was unable to reach mother or Jodie therapeutic case manager continue home aspirin, statin, heparin times 48 , add low-dose beta-dean, follow stress stress results and discuss further treatment plan with cardio # hyperglycemia secondary to diabetes due to dietary indiscretion/no DKA - continue home Lantus, adjusted insulin sliding scale continue diabetic hemoglobin A1c 9 suggestive of poor blood sugar control - continue lisinopril has been put on for renal protection per mother # pseudoHyponatremia/hyperkalemia and acidosis normal anion gap repeat sodium/ potassium normalized. mild acidosis due to IV fluid will follow BMP # calcium 7.4 due to hypoalbuminemia corrected calcium 8.36 no hypocalcemia # GERD - continue home antiacids # hypothyroidism - continue levothyroxine # BPH - continue tamsulosin # anxiety/depression continue citalopram # pseudoseizures, continue Depakote/add sz precautions # hypomagnesemia repleted repeat magnesium 1.9 DVT prophylaxis:? Lovenox patient will need continued inpatient hospitalization due to chest pain und ergoing stress test on IV heparin. Quality Stroke Does the patient have a stroke diagnosis?: No VTE Prior VTE?: No VTE Risk Level:: Medical - moderate - high VTE Device Contraindication: Treatment Not Indicated VTE Drug Contraindication: N/A - Med Ordered
[2022-03-29 12:22] LABS: Glucose, Whole Blood 161 mg/dL (60-115)
--- NOTE | 2022-03-29 13:20 | MHC.CM.PN ---
Per ROUNDS discussion, Patient is not yet medically cleared for dc (positive ECHO, IV Heparin Drip); returning to the [facility] is the goal and CM will continue to follow.
[2022-03-29] MEDS: Metoprolol Tartrate 12.5 MG HALFTAB PO ×2 (13:22→20:07)
[2022-03-29 16:16] LABS: Glucose, Whole Blood 232 mg/dL (60-115)
[2022-03-29] MEDS: Tamsulosin HCL 0.4 MG CAPSULE 0.8 MG PO (16:22)
[2022-03-29 16:30] LABS: PTT Heparin Drip 41.1 SEC (53-77.9)
[2022-03-29] MEDS: Heparin Sodium,Porcine 5,000 UNIT/ML VIAL 2200 UNIT IVPUSH ×2 (16:46→23:13)
[2022-03-29] MEDS: Atorvastatin Calcium 10 MG TABLET PO (20:07)
[2022-03-29] MEDS: Azithromycin 250 MG TABLET PO (20:07)
[2022-03-29] MEDS: Divalproex Sodium 250 MG TABLET.DR PO (20:07)
[2022-03-29 21:09] LABS: Glucose, Whole Blood 211 mg/dL (60-115)
[2022-03-29] MEDS: Insulin Glargine,Hum.rec.anlog 100 UNIT/ML 10 ML VIAL 6 UNIT SUBCUT (21:57)
[2022-03-29 22:54] LABS: PTT Heparin Drip 52.6 SEC (53-77.9)
[2022-03-30] VITALS: BP 149/70; PULSE 71; RESP 18; TEMP 36.9; O2SAT 94
[2022-03-30] MEDS: 0.9 % Sodium Chloride Flush 3 ML SYRINGE IVFLUSH ×2 (01:00→08:04)
[2022-03-30 03:36] LABS: Glucose, Whole Blood 39 mg/dL (60-115)
[2022-03-30 03:50] LABS: Glucose, Whole Blood 100 mg/dL (60-115)
[2022-03-30 04:00] VITALS: BP 135/60; PULSE 72; RESP 14; TEMP 36.6; O2SAT 93
[2022-03-30 06:56] LABS: PTT Heparin Drip 74.4 SEC (53-77.9)
[2022-03-30 07:17] VITALS: PULSE 67; RESP 18; O2SAT 96
[2022-03-30] MEDS: Albuterol/Iprat 2.5/0.5MG 3 ML AMPUL.NEB INHALE (07:17)
[2022-03-30 07:22] LABS: Glucose, Whole Blood 494 mg/dL (60-115)
[2022-03-30 07:35] VITALS: BP 173/73; PULSE 87; RESP 20; TEMP 36.1; O2SAT 96
[2022-03-30] MEDS: Famotidine 20 MG TABLET 10 MG PO (08:01)
[2022-03-30] MEDS: Cholecalciferol (Vitamin D3) 25 MCG TABLET PO (08:01)
[2022-03-30] MEDS: Folic Acid 1 MG TABLET PO (08:01)
[2022-03-30] MEDS: Ferrous Sulfate 324 MG TABLET.DR PO (08:02)
[2022-03-30] MEDS: Metoprolol Tartrate 12.5 MG HALFTAB PO (08:02)
[2022-03-30] MEDS: lisinopriL 5 MG TABLET PO (08:02)
[2022-03-30] MEDS: Levothyroxine Sodium 100 MCG TABLET PO (08:03)
[2022-03-30] MEDS: Nystatin Cream 15 GM TUBE 1 APPL TOPICAL (08:03)
[2022-03-30] MEDS: Ascorbic Acid 500 MG TABLET PO (08:03)
[2022-03-30] MEDS: Loratadine 10 MG TABLET PO (08:03)
[2022-03-30] MEDS: Escitalopram Oxalate 10 MG TABLET PO (08:03)
[2022-03-30] MEDS: Aspirin Enteric Coated 81 MG TABLET.DR PO (08:03)
[2022-03-30] MEDS: Isosorbide Mononitrate 30 MG TAB.ER.24H PO (08:03)
[2022-03-30] MEDS: Triamcinolone Acet 0.1 % Cream 15 GM TUBE 1 APPL TOPICAL (08:04)
[2022-03-30] MEDS: Insulin Lispro 100 UNIT/ML 3 ML VIAL SUBCUT ×2 (08:31→12:39)
[2022-03-30 08:43] LABS: Glucose, Whole Blood 412 mg/dL (60-115)
--- NOTE | 2022-03-30 10:38 | PM.PNCARD ---
Subjective Subjective Date of Service: 03/30/22 Principal diagnosis: chest discomfort, troponin elevation Interval history: Seen examined at bedside. Nuclear stress test did not show any perfusion defect. Denying any symptoms. Physical Exam Vital Signs: Last Vital Signs Temp 97 F 03/30/22 07:35 Pulse 87 03/30/22 07:35 Resp 20 03/30/22 07:35 BP 173/73 H 03/30/22 07:35 Pulse Ox 96 03/30/22 07:35 O2 Del Method 03/30/22 07:35 BMI result Body Mass Index 28.5 GENERAL APPEARANCE: in no acute distress, facial features and body habitus due to down syndrome NECK: no carotid bruit, no jugular venous distention. SKIN: no suspicious lesions, warm and dry. HEART: no murmurs, regular rate and rhythm. LUNGS: clear to auscultation bilaterally. ABDOMEN: soft, nontender. EXTREMITIES: no edema. PERIPHERAL PULSES: equal. NEUROLOGIC: No gross deficits, following simple commands. Objective Labs and Meds Result diagrams: 03/29/22 04:22 03/29/22 04:22 Lab results: Laboratory Results - last 24 hr 03/29/22 03/29/22 03/29/22 11:16 12:16 16:05 aPTT Heparin Protocol 41.1 L D POC Glucose 133 H 161 H 03/29/22 03/29/22 03/29/22 16:10 21:04 22:40 aPTT Heparin Protocol 52.6 L D POC Glucose 232 H 211 H 03/30/22 03/30/22 03/30/22 03:29 03:46 05:46 aPTT Heparin Protocol 74.4 D POC Glucose 39 L* 100 03/30/22 03/30/22 07:14 08:23 aPTT Heparin Protocol POC Glucose 494 H* 412 H* Imaging Radiologist's impression: Impressions Myocardial Perfusion Scan Nuc Med 03/29/22 12:00 Impression: 1. Myocardial perfusion imaging study shows likely normal myocardial perfusion. No definitive evidence of any ischemia or infarction. 2. Gated LVEF is 44% during stress, 53% during rest; but visually appears normal. Correlate with echocardiogram. 3. Transient ischemic dilatation not present. EKG component of the test reported separately. Progress Note: A&P Assessment and plan (1) Chest pain: Status: Acute Plan Pleasant 41-year-old gentleman with Down syndrome who is here with chest pain. History is quite limited. EKG did not show any dynamic changes. His echocardiography did not show any wall motion abnormalities. He underwent nuclear perfusion imaging which did not show any perfusion defect. He has been taken off the heparin drip. He is on baby aspirin. Blood pressure is elevated. Please increase lisinopril to 10 mg once a day. Can be discharged from cardiovascular point of view. Can follow up with us as outpatient. Thank you for allowing me to participate in the care of your patient. Please feel free to contact me if you have any questions. Time Spent With Patient Time: Total time spent is greater than 50% in coordination of care (as documented) at patient's floor/unit and/or counseling patient: Progress Note: Quality Stroke Does the patient have a stroke diagnosis?: No Procedures Date of Service Date of Service: 03/30/22
[2022-03-30 11:18] LABS: Glucose, Whole Blood 327 mg/dL (60-115)
[2022-03-30 12:00] VITALS: BP 151/67; PULSE 90; RESP 20; TEMP 36.6; O2SAT 97
[2022-03-30 12:33] LABS: INTERNATIONAL NORM RATIO 0.9 (0.9-1.1); Prothrombin Time 10.4 SEC (10.0-13.1)
--- NOTE | 2022-03-30 12:44 | PM.DS ---
DS: Providers Provider Date of Service: 03/30/22 Date of admission: 03/27/22 22:31 Primary care physician: Boris Mcgowan MD Consults: 03/27/22 22:35 Consult to Cardiology Routine Consulting Provider: Ryan Davis Reason for consultation: NSTEMI Has provider been notified: No DS: Diagnosis Discharge Diagnosis (1) Chest pain: Status: Resolved (2) Elevated troponin: Status: Resolved (3) Down syndrome: Status: Inactive DS: Summary Hospital Course Hospital Course: History of presenting illness Chief Complaint: Chest pain 41-year-old male with past medical history of Down syndrome, diabetes, IPF, HLD, GERD, BPH, hypothyroidism, anxiety and depression presents to the hospital with complaints of chest pain.? Patient initially was evaluated at the residential for hyperglycemia with his glucose being in the 500, fairly patient then started complaining of midsternal chest pain.? Patient reports that the pain is intermittent, lasting few minutes, resolving spontaneously, pain is midsternal, nonradiating, mild, with no association with shortness of breath, or palpitations.? Patient otherwise denies any headache, change in vision, no abdominal pain nausea or vomiting, no diarrhea constipation, no urinary symptoms. On arrival to the ED patient hemodynamically stable with no significant abnormal vitals Labs are significant for WBC count of 6.1, hemoglobin of 11, hematocrit 32.1, sodium of 130, BUN of 37, magnesium of 1.4, creatinine of 1.17, initial troponin of 9.8 that increased to 58 and 86.1, UA negative, acetone negative, chest x-ray shows hypoinflated lungs Hospital course 41-year-old male with past medical history of Down syndrome presents to the hospital with chest pain admitted to telemetry unit further workup # chest pain since patient is an unreliable historian and with mildly elevated troponin patient underwent stress test that showed no ischemia, echocardiogram showed akinetic inferior wall as per Cardiology not significant Patient placed on Toprol XL for better blood pressure control recommended to continue aspirins and statin and better blood sugar control, no ischemic change on EKG, total cholesterol 150 LDL 71 # hyperglycemia secondary to diabetes? due to dietary indiscretion/no DKA, recommend to continue home? Lantus, diabetic diet? hemoglobin A1c 9 suggestive of poor blood sugar control. # pseudoHyponatremia/hyperkalemia and acidosis normal anion gap all related to hyperglycemia, resolved ?? # calcium 7.4 due to hypoalbuminemia corrected? calcium 8.36 no hypocalcemia ? # GERD - continue home antiacids # hypothyroidism - continue levothyroxine # BPH - continue tamsulosin # anxiety/depression continue citalopram # pseudoseizures,? continue Depakote # hypomagnesemia repleted repeat? magnesium 1.9 Time Spent with Patient Time attestation: Total time spent providing and/or coordinating discharge services: Discharge coordination time: Greater than 30 minutes Quality: Safe Use of Opioids Does Pt have an Active Cancer Diagnosis on the Problem List?: No Quality: Stroke Does the patient have a stroke diagnosis?: No Physical Exam Vital Signs: Vital Signs: Last Vital Signs Temp 98 F 03/30/22 12:00 Pulse 90 03/30/22 12:00 Resp 20 03/30/22 12:00 BP 151/67 H 03/30/22 12:00 Pulse Ox 97 03/30/22 12:00 O2 Del Method 03/30/22 12:00 BMI result Body Mass Index 28.5 Const: Other: General resting co mfortably in no ac jena distress.? Nec k no JVD. CVS? reg ular rate rhythm, Respiratory lungs clear to auscultat ion, no respirator y distress, no whe ryan, no rhonchi. G astrointestinal ab domen soft, nonten marj, bowel sounds audible, no guardi ng , no rigidity. Extremities no salud ma. Neuro moving a ll 4 extremity, sp eech clear. Skin n o rash DS: Data Data Completed and Pending Labs on day of discharge: Laboratory Results - last 24 hr 03/29/22 03/29/22 03/29/22 16:05 16:10 21:04 PT INR aPTT Heparin Protocol 41.1 L D POC Glucose 232 H 211 H 03/29/22 03/30/22 03/30/22 22:40 03:29 03:46 PT INR aPTT Heparin Protocol 52.6 L D POC Glucose 39 L* 100 03/30/22 03/30/22 03/30/22 05:46 07:14 08:23 PT INR aPTT Heparin Protocol 74.4 D POC Glucose 494 H* 412 H* 03/30/22 03/30/22 11:08 12:15 PT 10.4 INR 0.9 aPTT Heparin Protocol POC Glucose 327 H Discharge Plan Discharge Patient Disposition: Home, Self-Care Discharge Diagnosis: atypical chest pain hyperglycemia due to diabetes mellitus Referrals: Po,Boris Mack MD [Primary Care Provider] - 2 days Discharge Medications: New metoprolol succinate 25 mg Tablet Extended Release 24 Hr 25 mg PO DAILY Qty: 30 0RF Protocol: Hold for SBP/HR < HOLD for SBP < : 90 HOLD for HR < : 60 Continued arformoterol [Brovana] 15 mcg/2 mL solution for nebulization 2 ml inhalation DAILY 30 Days Qty: 2 3RF ipratropium-albuterol 0.5 mg-3 mg(2.5 mg base)/3 mL solution for nebulization 3 ml inhalation BID Qty: 180 11RF docusate sodium [DOK] 100 mg capsule 100 mg PO BID Qty: 180 3RF cholecalciferol (vitamin D3) 25 mcg (1,000 unit) capsule 25 mcg PO DAILY 90 Days Qty: 90 2RF famotidine 10 mg tablet 10 mg PO BID 90 Days Qty: 180 3RF lisinopril 5 mg tablet 5 mg PO DAILY Qty: 90 3RF aspirin [Adult Aspirin Regimen] 81 mg tablet,delayed release (DR/EC) 81 mg PO DAILY 90 Days Qty: 90 3RF BENEFIBER POW See Rx Instructions .ROUTE .COMPLEX Qty: 500 0RF Dose Instruction: TAKE 1 TABLESPOON (15ML) EVERY MORNING IN HOT CHOCOLATE OR DRINK OF CHOICE Rx Instructions: TAKE 1 TABLESPOON (15ML) EVERY MORNING IN HOT CHOCOLATE OR DRINK OF CHOICE folic acid 800 mcg tablet 0.8 mg PO QAM Qty: 90 3RF simvastatin 10 mg tablet 10 mg PO BEDTIME Qty: 90 0RF ascorbate calcium (vitamin C) 500 mg tablet 500 mg PO DAILY 90 Days Qty: 90 3RF tamsulosin 0.4 mg capsule 0.8 mg PO DAILY@1700 cetirizine 10 mg tablet 10 mg PO DAILY citalopram 20 mg Tablet 20 mg PO DAILY levothyroxine [Levoxyl] 100 mcg tablet 100 mcg PO DAILY Lantus Solostar U-100 Insulin 100 unit/mL (3 mL) insulin pen 6 unit subcut QPM insulin lispro [Humalog KwikPen Insulin] 100 unit/mL insulin pen See Rx Instructions subcut TID Rx Instructions: Sliding scale subcut 3 times a day Desitin Rapid Relief 13 % cream 1 appl topical DAILY Protocol: Apply to: Apply to: irritaion to head of penis after shower divalproex 250 mg tablet,delayed release (DR/EC) 250 mg PO BEDTIME (DME) pen needle, diabetic [Comfort EZ Pen [place]] 33 gauge x 5/32 needle See Rx Instructions .ROUTE .MEDSUPPLY Qty: 100 Rx Instructions: As directed azithromycin 250 mg tablet 250 mg PO MOWEFR@2100 clotrimazole-betamethasone 1-0.05 % cream 1 appl topical BID 14 Days Qty: 45 0RF Rx Instructions: Apply thin coat 2 times per day No Action ferrous sulfate 325 mg (65 mg iron) tablet 325 mg PO DAILY Qty: 90 1RF Discharge Orders: Discharge Order (Routine); Ordered 03/30/22 Ordered By: Mikey Ness Diet: Diabetic diet Activity on Discharge: As tolerated Stand Alone Forms: Patient Portal Discharge page, Work/School Release Activity Restrictions/Additional Instructions: Take your medications as prescribed. If you were prescribed antibiotics today, it is important that you take your medication to their entirety, do not skip any doses, do not finish them early. Follow-up with your primary care provider this week. Return to the emergency department with new or worsening symptoms. Such as fevers, chills, chest pain, shortness of breath, nausea, vomiting, dizziness, headache, vision changes, lethargy In case of emergency call 911 Care Plan Goals: Atypical chest pain, acute coronary syndrome ruled out due to hypertension added Toprol XL 25 mg follow BP can increase dose of lisinopril to 10 mg if noted to have elevated blood pressure, continue all other home medications strongly recommend to follow diabetic diet since noted to have elevated hemoglobin A1c 9.2 Health Concerns: strict diabetic diet, continue insulin sliding scale and Lantus Plan of Treatment: Outpatient follow-up with PCP, patient can return to residential without any restriction Assessment: As per discharge summary Patient Instructions: Diabetic Hyperglycemia (ED), Diabetes and Nutrition (ED), Diabetes and Exercise (ED) Discharge Date/Time: 03/30/22 15:45
--- NOTE | 2022-03-30 13:16 | MHC.CM.PN ---
Patient has been medically cleared for dc to home (Assisted) today, self care. CM met with Patient and Assisted staff at bedside and Staff will provide transportation home (in a few hours, after BS is checked again). Last IMM addressed on 03/28/22.
[2022-03-30 14:35] LABS: Glucose, Whole Blood 136 mg/dL (60-115)
== END 2022-03-30 15:45 | disposition home or self-care (01) | DRG 313 ==
LOC: HO.ED 22:00 → HO.EDOVER 22:50 → HO.IMC 23:34
PROVIDERS: Physician Assistant; Admitting Provider Internal Medicine; Emergency Provider Internal Medicine; PCP Internal Medicine; Visit Provider Hospitalist
DX: R07.89 Other chest pain (principal); K21.9 Gastro-esophageal reflux disease without esophagitis; N40.0 Benign prostatic hyperplasia without lower urinary tract symptoms; E03.9 Hypothyroidism, unspecified; Q90.9 Down syndrome, unspecified; F32.A Depression, unspecified; F41.9 Anxiety disorder, unspecified; E87.5 Hyperkalemia; E83.42 Hypomagnesemia; E10.65 Type 1 diabetes mellitus with hyperglycemia; E88.09 Other disorders of plasma-protein metabolism, not elsewhere classified; R79.89 Other specified abnormal findings of blood chemistry; Z20.822 Contact with and (suspected) exposure to COVID-19; Z91.11 Patient's noncompliance with dietary regimen; Z88.2 Allergy status to sulfonamides; Z79.82 Long term (current) use of aspirin; Z79.899 Other long term (current) drug therapy
CPT/HCPCS: 36415; 71045; 78452; 80048; 80053; 80061; 81001; 82009; 82803; 82947; 83036; 83735; 84484; 85025; 85027; 85610; 85730; 87635; 93005; 93017; 93306; 94640; 99285; A9500; J0280; J2270; J2405; J2785; J3475

== ENCOUNTER → 2022-04-04 13:15 | Outpatient (BNVA) | payer MEDICARE, MEDICAID, SELFPAY | PROVIDERS: PCP Internal Medicine; Visit Provider Nurse Practitioner Family | DX: K59.04 Chronic idiopathic constipation (principal) | CPT/HCPCS: 99212 ==

== ENCOUNTER → 2022-05-16 09:29 | Outpatient (BNVA) | payer MEDICARE, MEDICAID, SELFPAY | PROVIDERS: PCP Internal Medicine; Visit Provider Internal Medicine Pulmonary Disease | DX: J84.112 Idiopathic pulmonary fibrosis (principal); R05.3 Chronic cough | CPT/HCPCS: 99212 ==

== ENCOUNTER 2022-07-02 14:24 | Emergency (ER) | payer MEDICARE, MEDICAID, SELFPAY ==
[2022-07-02 14:31] VITALS: BP 168/72; PULSE 73; BMI 22.4
[2022-07-02 16:45] LABS: Glucose, Whole Blood 280 mg/dL (60-115)
--- NOTE | 2022-07-02 16:47 | ED_ITS ---
HPI - General Adult General Chief complaint: General Medical Stated complaint: low sugar Time Seen by Provider: 07/02/22 14:34 Source: patient Mode of arrival: EMS Limitations: no limitations History of Present Illness HPI narrative: 41-year-old male who is brought to the emergency department for evaluation of altered mental status secondary to hypoglycemia. The patient is in a senior living. The patient has a sliding scale insulin regimen prior to meals. The patient ate breakfast. His point of care glucose was 104 prior lunch chin he was given insulin. His lunch was delivered late. When he went to eat lunch she was confused and knocked ovaries tray. Staff members were able to check a glucose and it was 33. They were unable to give him oral glucose as he was uncooperative. The patient was transported to the emergency department by paramedics. In the emergency department the patient was awake enough to eat food and drink juice. The patient was not ill in any way prior to his altered mental status and low glucose. Related Data Home Medications Medication Instructions Recorded Confirmed insulin glargine 100 unit/mL (3 6 unit subcut QPM 05/13/20 03/27/22 mL) subcutaneous pen (Lantus Solostar U-100 Insulin) levothyroxine 100 mcg tablet 100 mcg PO DAILY 05/13/20 03/27/22 (Levoxyl) insulin lispro 100 unit/mL See Rx Instructions subcut TID 05/25/20 03/27/22 subcutaneous pen (Humalog KwikPen (U-100) Insulin) pen needle, diabetic 33 gauge x #100 ea 09/15/21 01/18/22 5/32 (Comfort EZ Pen [place]) citalopram 20 mg tablet 20 mg PO DAILY 03/27/22 03/27/22 tamsulosin 0.4 mg capsule 0.8 mg PO DAILY@1700 03/27/22 03/27/22 Previous Rx's Medication Instructions Recorded famotidine 10 mg tablet 10 mg PO BID 90 days #180 tabs 07/28/21 lisinopril 5 mg tablet 5 mg PO DAILY #90 tabs 08/11/21 aspirin 81 mg tablet,delayed 81 mg PO DAILY 90 days #90 tabs 11/14/21 release (Adult Aspirin Regimen) BENEFIBER POW See Rx Instructions .Route 11/29/21 .COMPLEX #500 grams folic acid 800 mcg tablet 0.8 mg PO QAM #90 tabs 01/26/22 ferrous sulfate 325 mg (65 mg 325 mg PO DAILY #90 tabs 03/30/22 iron) tablet cetirizine 10 mg tablet 10 mg PO DAILY #90 tabs 05/08/22 ascorbate calcium (vitamin C) 500 500 mg PO DAILY 90 days #90 tabs 05/25/22 mg tablet docusate sodium 100 mg capsule 100 mg PO BID #180 caps 05/25/22 (DOK) azithromycin 250 mg tablet 250 mg PO MOWEFR 30 days #13 tabs 05/29/22 simvastatin 10 mg tablet 10 mg PO BEDTIME #90 tabs 06/11/22 cholecalciferol (vitamin D3) 25 25 mcg PO DAILY 90 days #90 caps 06/12/22 mcg (1,000 unit) capsule ipratropium 0.5 mg-albuterol 3 mg 3 ml PO BID #180 mL 06/20/22 (2.5 mg base)/3 mL nebulization soln Allergies Allergy/AdvReac Type Severity Reaction Status Date / Time Sulfa (Sulfonamide Allergy Intermediate ITCHING Verified 05/16/22 09:37 Antibiotics) [SULFA(SULFONAMIDE ANTIBIOTICS)] Review of Systems Review of Systems: Yes all other systems are reviewed and are negative PMFSH Past Medical History [facility] Narrative: Social history: He lives in a senior living. He does not drink alcohol, smoke cigarettes or use drugs. Medical History Anxiety and depression Ascites BPH (benign prostatic hyperplasia) Cellulitis Constipation Diabetes mellitus type 1 Down syndrome GERD (gastroesophageal reflux disease) Hypercholesterolemia Hypothyroid Mental and behavioral problem Pericardial effusion Pseudoseizures Renal insufficiency Urethral meatal stenosis Surgical History Hx of cataract surgery Family History Family History Father Medical history unknown Mother Medical history unknown Social History Social History Household Members: Other Household Members Other:: other residents and staff Housing: Other Housing Other:: Assisted Do you presently have visiting nurse or other home services: No Alcohol intake: never Patient Tobacco Use Status: Never used Tobacco e-Cigarette/Vaping Use: Never Used Second Hand Smoke Exposure: No Advance Directives: No Advance Directives Information Provided: Yes service: No Current occupational status: disabled Cognitive needs: No Hearing needs: No Vision needs: No Physical Exam ED Vital Signs: BMI result Body Mass Index 22.4 Const Other: The patient has a small stature secondary to his developmental delay, he is pleasant cooperative, he does answer questions appropriately Eyes General: appearance normal, both eyes and all related structures Pupils: Equal, round and reactive pupils present Neck Neck: Yes normal visual inspection, Yes no lymphadenopathy, Yes trachea midline and Yes supple Chest Chest palpation & inspection: normal inspection of the chest and normal palpation of entire chest wall Resp Effort & Inspection: normal respiratory effort and able to speak in complete sentences Auscultation: clear to auscultation bilaterally Cardio Rate: regular rate Rhythm: regular rhythm Heart sounds: S1 normal heart sound present, S2 normal heart sound present and no murmurs GI Inspection: Yes normal to inspection Palpation (GI): Soft to palpation, nontender and no guarding Auscultation: normal bowel sounds General: Yes no CVA tenderness Back/Spine/Pelvis Back: no CVA tenderness Skin General skin exam: no rashes or lesions noted Neuro Cranial nerves: Yes CN's II-XII intact bilaterally and Yes Equal, round and reactive pupils present Cognition (Neuro): normal cognition Motor exam (neuro): 5/5 motor strength present throughout Extrem General: Yes normal to inspection Psych Appearance: grossly normal Speech and movement: Normal speech and movement present Affect: normal affect Attitude: cooperative Thought process: Normal thought process present Thought content: Normal thought content present Course Course Course Narrative: 41-year-old male who presents emergency department for evaluation of altered level consciousness and was found to have a glucose of 33 by his senior living staff. Here in the emergency department patient was awake enough to eat food and to drink juice. At this time I think the patient is stable and can be discharged back to his senior living. I did advise the dose senior living staff member to continue his medications as prescribed by his provider and to make sure the has a large dinner and eats a snack prior to going to bed. Discharge Plan Discharge Clinical Impression: Hypoglycemia Patient Disposition: Home, Self-Care Additional Instructions: Continue using your medications as prescribed by your providers. Make sure you eat a lot of food for dinner and have a snack before you go to bed this evening. Follow-up with your doctor in 2 days. Please return to the emergency department if your symptoms get worse or if you develop any symptoms that are concerning to you. Prescriptions: No Action famotidine 10 mg tablet 10 mg PO BID 90 Days Qty: 180 3RF lisinopril 5 mg tablet 5 mg PO DAILY Qty: 90 3RF aspirin [Adult Aspirin Regimen] 81 mg tablet,delayed release (DR/EC) 81 mg PO DAILY 90 Days Qty: 90 3RF BENEFIBER POW See Rx Instructions .ROUTE .COMPLEX Qty: 500 0RF Dose Instruction: TAKE 1 TABLESPOON (15ML) EVERY MORNING IN HOT CHOCOLATE OR DRINK OF CHOICE Rx Instructions: TAKE 1 TABLESPOON (15ML) EVERY MORNING IN HOT CHOCOLATE OR DRINK OF CHOICE folic acid 800 mcg tablet 0.8 mg PO QAM Qty: 90 3RF ferrous sulfate 325 mg (65 mg iron) tablet 325 mg PO DAILY Qty: 90 1RF cetirizine 10 mg tablet 10 mg PO DAILY Qty: 90 2RF docusate sodium [DOK] 100 mg capsule 100 mg PO BID Qty: 180 3RF ascorbate calcium (vitamin C) 500 mg tablet 500 mg PO DAILY 90 Days Qty: 90 3RF azithromycin 250 mg tablet 250 mg PO MOWEFR 30 Days Qty: 13 6RF Rx Instructions: start on day 2 of therapy simvastatin 10 mg tablet 10 mg PO BEDTIME Qty: 90 0RF cholecalciferol (vitamin D3) 25 mcg (1,000 unit) capsule 25 mcg PO DAILY 90 Days Qty: 90 3RF ipratropium-albuterol 0.5 mg-3 mg(2.5 mg base)/3 mL solution for nebulization 3 ml PO BID Qty: 180 10RF tamsulosin 0.4 mg capsule 0.8 mg PO DAILY@1700 citalopram 20 mg Tablet 20 mg PO DAILY levothyroxine [Levoxyl] 100 mcg tablet 100 mcg PO DAILY Lantus Solostar U-100 Insulin 100 unit/mL (3 mL) insulin pen 6 unit subcut QPM insulin lispro [Humalog KwikPen Insulin] 100 unit/mL insulin pen See Rx Instructions subcut TID Rx Instructions: Sliding scale subcut 3 times a day (DME) pen needle, diabetic [Comfort EZ Pen [place]] 33 gauge x 5/32 needle See Rx Instructions .ROUTE .[facility] Qty: 100 Rx Instructions: As directed
== END 2022-07-02 17:09 | disposition home or self-care (01) ==
PROVIDERS: Emergency Provider Emergency Medicine Emergency Medical Services; PCP Internal Medicine
DX: E11.649 Type 2 diabetes mellitus with hypoglycemia without coma (principal); R41.82 Altered mental status, unspecified; Z79.4 Long term (current) use of insulin; Z79.899 Other long term (current) drug therapy
CPT/HCPCS: 82947; 99282

== ENCOUNTER 2022-08-18 09:15 | Outpatient (REF) | payer MEDICARE, MEDICAID, SELFPAY ==
--- NOTE | ~2022-08-18 | XR_ITS ---
EXAMINATION: XR CERVICAL SPINE CLINICAL INFORMATION: Down syndrome. COMPARISON: Radiographs dated 02/17/2019. TECHNIQUE: 10 views of the cervical spine, inclusive of flexion and extension views, were obtained. FINDINGS: Vertebral body heights and alignment are normal. There is marked degenerative disc disease and spondylosis at C2-C3, C3-C4 and C4-C5. At C5-C6, there is mild anterior spondylosis. At C6-C7, there is moderately severe degenerative disc disease, with vacuum phenomenon and spondylosis. No acute fracture or spondylolisthesis is seen. The dens is intact. There is osteoarthritic change of the atlantoaxial joint. No instability is seen with flexion or extension. There is no atlantoaxial instability. The posterior elements are intact. The paravertebral soft tissues are unremarkable. XR/XR cervical spine w flex/ext IMPRESSION: 1. There is marked degenerative disc disease and spondylosis at C2-C3 through C4-C5, and at C6-C7, there is moderately severe degenerative disc disease, with spondylosis. 2. No instability is seen with flexion or extension. There is no atlantoaxial instability demonstrated.
== END 2022-08-18 09:16 | disposition home or self-care (01) ==
LOC: HO.XRAY 09:15
PROVIDERS: PCP Internal Medicine; Visit Provider Internal Medicine
DX: Q90.9 Down syndrome, unspecified (principal)
CPT/HCPCS: 72052

== ENCOUNTER 2022-09-21 16:44 | Outpatient (REF) | payer MEDICARE, MEDICAID, SELFPAY ==
[2022-09-21 16:54] LABS: MANUAL DIFF FLAG NO
[2022-09-21 17:03] LABS: Basophils Absolute Auto 0.1 X10*3/uL (0.0-0.2); Basophils Percent Auto 1.6 % (0-2); Eosinophils Absolute Auto 0.3 X10*3/uL (0.0-0.4); Eosinophils Percent Auto 5.1 % (0-4); Hematocrit 35.9 % (42.0-52.0); Hemoglobin 12.1 g/dl (14.0-18.0); Imm Gran Abs Auto 0.02 X10*3/uL (0.00-0.03); Imm Gran Pct Auto 0.3 % (0.0-0.4); Lymphocytes Absolute Auto 1.5 X10*3/uL (1.2-4.9); Lymphocytes Percent Auto 24.1 % (20-40); Mean Corpuscular HGB Conc 33.7 g/dl (31.0-36.0); Mean Corpuscular Hemoglobin 30.7 pg (27.0-33.0); Mean Corpuscular Volume 91.1 fL (80.0-98.0); Mean Platelet Volume 9.1 fL (9.4-12.4); Monocytes Absolute Auto 0.5 X10*3/uL (0.1-1.2); Monocytes Percent Auto 7.6 % (2-11); Neutrophils Absolute Auto 3.8 x10*3/uL (2.0-8.3); Neutrophils Percent Auto 61.3 % (45-73); Platelet Count 353 X10*3/uL (160-400); Red Blood Count 3.94 X10*6/uL (4.60-5.80); Red Cell Distribution Width 12.8 % (11.0-16.0); Retic HGB Equivalent 37.1 pg (30.0-35.0); Reticulocyte Percent 2.2 % (0.5-1.8); Reticulocytes Absolute 0.085 X10*6/uL (0.026-0.095); White Blood Count 6.2 X10*3/uL (4.8-10.8)
[2022-09-21 17:40] LABS: Alanine Aminotransferase 16 U/L (0-40); Albumin Level 3.1 g/dL (3.5-5.0); Alkaline Phosphatase 82 U/L (39-117); Anion Gap 11 (12-20); Aspartate Amino Transferase 15 U/L (5-37); Bilirubin Total 0.2 mg/dL (0.0-1.0); Blood Urea Nitrogen 44 mg/dL (9-16); Calcium 8.5 mg/dL (8.4-10.2); Carbon Dioxide 28 mmol/L (22-29); Chloride 101 mmol/L (96-108); Estimated Glomerular Filt Rate 50; Glucose Random 132 mg/dL (60-115); Iron 47 mcg/dL (45-160); Percent Iron Saturation 23 % (15-50); Potassium 4.9 mmol/L (3.3-5.1); Sodium 135 mmol/L (135-145); Total Iron Binding Capacity 203 mcg/dL (228-428); Total Protein 6.1 g/dL (6.5-8.0); Unsaturated Iron Binding 156 ug/dL
[2022-09-21 18:13] LABS: Ferritin 296 ng/mL (20-250); Folate > 20.0 ng/mL (> or = 4.0); Free T4 (Free Thyroxine) 1.05 ng/dL (0.71-1.85); Thyroid Stimulating Hormone 3.18 uIU/mL (0.32-4.0); Vitamin B12 512 pg/mL (200-900)
== END 2022-09-21 16:45 | disposition home or self-care (01) ==
LOC: HO.LAB 16:44
PROVIDERS: Absent Provider Internal Medicine; PCP Internal Medicine; Visit Provider Urology
DX: D64.9 Anemia, unspecified (principal)
CPT/HCPCS: 36415; 80053; 82607; 82728; 82746; 83540; 84439; 84443; 85025; 85045

== ENCOUNTER 2022-09-28 08:55 | Outpatient (REF) | payer MEDICARE, MEDICAID, SELFPAY ==
[2022-09-28 10:33] LABS: Anion Gap 10 (12-20); Blood Urea Nitrogen 40 mg/dL (9-16); Calcium 8.5 mg/dL (8.4-10.2); Carbon Dioxide 29 mmol/L (22-29); Chloride 104 mmol/L (96-108); Estimated Glomerular Filt Rate 55; Glucose Random 85 mg/dL (60-115); Potassium 5.2 mmol/L (3.3-5.1); Sodium 138 mmol/L (135-145)
[2022-09-28 10:53] LABS: Prostate Specific Antigen 0.14 ng/mL (<0.05-4.0)
== END 2022-09-28 08:56 | disposition home or self-care (01) ==
LOC: HO.LAB 08:55
PROVIDERS: PCP Internal Medicine; Visit Provider Urology
DX: Z12.5 Encounter for screening for malignant neoplasm of prostate (principal); N40.1 Benign prostatic hyperplasia with lower urinary tract symptoms; R35.0 Frequency of micturition; E10.9 Type 1 diabetes mellitus without complications; N35.919 Unspecified urethral stricture, male, unspecified site
CPT/HCPCS: 36415; 51798; 80048; 84153; 99212

== ENCOUNTER 2022-10-02 09:02 | Emergency (ER) | payer MEDICARE, MEDICAID, SELFPAY ==
--- NOTE | ~2022-10-02 | CT_ITS ---
EXAMINATION: CT ABDOMEN AND PELVIS WITHOUT CONTRAST CLINICAL INFORMATION: Right lower quadrant pain. COMPARISON: CT abdomen 11/19/2018. TECHNIQUE: Multidetector volumetric imaging was performed from the superior aspect of the liver through the pubic symphysis. Sagittal and coronal reformatted images were obtained on the technologist's workstation. This CT examination was performed using dose optimization techniques as appropriate, variously including the following: *Automated exposure control *Adjustment of mA and/or kV according to patient size (this includes techniques or standardized protocols for targeted exams where dose is matched to indication/reason for exam; i.e. extremities or head) *Use of iterative reconstruction technique DLP: 391 mGy-cm FINDINGS: LUNG BASES: No focal consolidation or pleural effusion. LIVER, GALLBLADDER, AND BILIARY TREE: Limited noncontrast examination. The liver is normal in size, shape and attenuation. A 1.9 x 0.8 cm nodularity abutting the posterior surface of the right hepatic lobe (3:22) is unchanged in size compared to 11/19/2018, and possibly represents an exophytic hemangioma, stability is reassuring. No new focal liver observation in this limited noncontrast examination. Normal appearance of the gallbladder. No biliary duct dilatation. PANCREAS: Limited noncontrast examination, unremarkable. SPLEEN: Limited noncontrast examination, unremarkable. ADRENAL GLANDS: No adrenal nodule. KIDNEYS AND URETERS: Limited noncontrast examination. No nephrolithiasis or hydronephrosis. Mild fairly symmetric perinephric fat stranding. BLADDER: Unremarkable. GASTROINTESTINAL TRACT: Small hiatal hernia. The stomach and the small bowel are nondilated. Normal appendix. No pericolonic inflammatory changes. No evidence of bowel obstruction. Moderate amount of stool content in the colon and rectum. ABDOMINAL WALL: Fat-containing umbilical left-sided inguinal hernias. Subtle fat stranding the right upper abdominal wall (3:34), possibly an injection site or small contusion. LYMPH NODES: No pathologically enlarged lymph nodes by CT short axis size criteria. A 0.7 cm lower periesophageal lymph node (3:7) is unchanged compared to 11/19/2018. VASCULAR: Limited noncontrast examination. The abdominal aorta is of normal diameter. PELVIC VISCERA: Unremarkable. OSSEOUS STRUCTURES: No acute or aggressive appearing osseous abnormalities. Degenerative changes of the spine. CT/CT abdomen pelvis wo IV con IMPRESSION: 1. Moderate amount of stool content in the colon and rectum suggesting constipation. 2. Small fat-containing umbilical and left inguinal hernias. 3. Subtle fat stranding in the right upper abdominal wall, likely an injection site or small contusion. 4. A 1.9 cm nodularity abutting the posterior surface of the liver is stable compared to 11/19/2018, stability is reassuring.
[2022-10-02 09:13] VITALS: BP 164/62; PULSE 66; RESP 16; TEMP 36.8; O2SAT 100; BMI 26.5
[2022-10-02 09:16] VITALS: BP 164/82; O2SAT 97
[2022-10-02 09:40] LABS: MANUAL DIFF FLAG NO
[2022-10-02 09:43] LABS: Appearance Urine Clear; Color Urine Yellow; Glucose Urine UA 100 mg/dL (Negative); Leukocyte Esterase Urine Negative (Negative); Nitrite Urine Negative (Negative); UMIC TRIGGER UACC YES; Urine Blood Trace (Negative); Urine Ketones Negative (Negative); Urine Protein 300 (3+) mg/dL (Neg-Trace)
[2022-10-02 09:44] LABS: Basophils Absolute Auto 0.1 X10*3/uL (0.0-0.2); Basophils Percent Auto 1.2 % (0-2); Eosinophils Absolute Auto 0.3 X10*3/uL (0.0-0.4); Eosinophils Percent Auto 4.6 % (0-4); Hemoglobin 11.6 g/dl (14.0-18.0); Imm Gran Abs Auto 0.02 X10*3/uL (0.00-0.03); Imm Gran Pct Auto 0.3 % (0.0-0.4); Lymphocytes Absolute Auto 0.8 X10*3/uL (1.2-4.9); Mean Corpuscular HGB Conc 33.1 g/dl (31.0-36.0); Mean Corpuscular Hemoglobin 30.3 pg (27.0-33.0); Mean Corpuscular Volume 91.4 fL (80.0-98.0); Mean Platelet Volume 8.9 fL (9.4-12.4); Monocytes Absolute Auto 0.4 X10*3/uL (0.1-1.2); Neutrophils Percent Auto 75.9 % (45-73); Platelet Count 309 X10*3/uL (160-400); Red Blood Count 3.83 X10*6/uL (4.60-5.80); White Blood Count 6.5 X10*3/uL (4.8-10.8)
[2022-10-02 09:45] LABS: Bacteria Urine None Seen (None Seen); Hyaline Casts Urine 0-2 /LPF (0-2); RBC Urine 0-2 /HPF (0-2); Squamous Epithelial Cell Urine 0-2 /HPF (0-2); WBC Urine 0-5 /HPF (0-5)
[2022-10-02 09:47] LABS: Glucose, Whole Blood 327 mg/dL (60-115)
--- NOTE | 2022-10-02 09:54 | ED.GENADULT ---
HPI - General Adult General Chief complaint: Abdominal Pain Stated complaint: abd pain Time Seen by Provider: 10/02/22 09:07 Source: patient and EMS Mode of arrival: EMS Related Data Home Medications Medication Instructions Recorded Confirmed insulin glargine 100 unit/mL (3 6 unit subcut QPM 05/13/20 09/28/22 mL) subcutaneous pen (Lantus Solostar U-100 Insulin) levothyroxine 100 mcg tablet 100 mcg PO DAILY 05/13/20 09/28/22 (Levoxyl) insulin lispro 100 unit/mL See Rx Instructions subcut TID 05/25/20 09/28/22 subcutaneous pen (Humalog KwikPen (U-100) Insulin) pen needle, diabetic 33 gauge x #100 ea 09/15/21 09/28/22 (Comfort EZ Pen [place]) citalopram 20 mg tablet 20 mg PO DAILY 03/27/22 09/28/22 tamsulosin 0.4 mg capsule 0.8 mg PO DAILY@1700 03/27/22 09/28/22 Previous Rx's Medication Instructions Recorded cetirizine 10 mg tablet 10 mg PO DAILY #90 tabs 07/08/22 ascorbate calcium (vitamin C) 500 500 mg PO DAILY 90 days #90 tabs 08/11/22 mg tablet ofloxacin 0.3 % eye drops (Ocuflox) 2 drp ophthalmic (eye) QID 5 days 08/15/22 #5 mL ferrous sulfate 325 mg (65 mg 325 mg PO DAILY #90 tabs 09/05/22 iron) tablet ipratropium 0.5 mg-albuterol 3 mg 3 ml PO BID #180 mL 09/05/22 (2.5 mg base)/3 mL nebulization soln BENEFIBER POW See Rx Instructions .Route 09/07/22 .COMPLEX #500 grams aspirin 81 mg tablet,delayed 81 mg PO DAILY 90 days #90 tabs 09/18/22 release (Adult Aspirin Regimen) cholecalciferol (vitamin D3) 25 25 mcg PO DAILY 90 days #90 caps 09/18/22 mcg (1,000 unit) capsule docusate sodium 100 mg capsule 100 mg PO BID #180 caps 09/18/22 (DOK) famotidine 10 mg tablet 10 mg PO BID 90 days #180 tabs 09/18/22 folic acid 800 mcg tablet 0.8 mg PO QAM #90 tabs 09/18/22 lisinopril 5 mg tablet 5 mg PO DAILY #90 tabs 09/18/22 simvastatin 10 mg tablet 10 mg PO BEDTIME #90 tabs 09/18/22 Allergies Allergy/AdvReac Type Severity Reaction Status Date / Time Sulfa (Sulfonamide Allergy Intermediate ITCHING Verified 09/28/22 09:12 Antibiotics) [SULFA(SULFONAMIDE ANTIBIOTICS)] [facility] Past Medical History Medical History Anxiety and depression Ascites BPH (benign prostatic hyperplasia) Cellulitis Constipation Diabetes mellitus type 1 Down syndrome GERD (gastroesophageal reflux disease) Hypercholesterolemia Hypothyroid Mental and behavioral problem Pericardial effusion Pseudoseizures Renal insufficiency Urethral meatal stenosis Surgical History Hx of cataract surgery Family History Family History Father Medical history unknown Mother Medical history unknown Social History Social History Household Members: Other Household Members Other:: other residents and staff Housing: Other Housing Other:: Custodial Do you presently have visiting nurse or other home services: No Alcohol intake: never Patient Tobacco Use Status: Never used Tobacco e-Cigarette/Vaping Use: Never Used Second Hand Smoke Exposure: No Advance Directives: Yes Advance Directives Information Provided: Yes Advance Directives on File: No service: No Current occupational status: disabled Cognitive needs: No Hearing needs: No Vision needs: No Physical Exam ED Vital Signs: Vital Signs - 24 hr 10/02/22 09:13 Temperature 98.3 F Pulse Rate 66 Respiratory Rate 16 Blood Pressure 164/62 H Pulse Oximetry 100 Oxygen Delivery Method Room Air BMI result Body Mass Index 26.5 Medical Decision Making Lab Data 10/02/22 09:35 10/02/22 09:34 Labs: Lab Results 10/02/22 10/02/22 10/02/22 Range/Units 09:34 09:35 09:44 WBC 6.5 (4.8-10.8) X10*3/uL RBC 3.83 L (4.60-5.80) X10*6/uL Hgb 11.6 L (14.0-18.0) g/dl Hct 35.0 L (42.0-52.0) % MCV 91.4 (80.0-98.0) fL MCH 30.3 (27.0-33.0) pg MCHC 33.1 (31.0-36.0) g/dl RDW 13.0 (11.0-16.0) % Plt Count 309 (160-400) X10*3/uL MPV 8.9 L (9.4-12.4) fL Immature Gran % (Auto) 0.3 (0.0-0.4) % Neut % (Auto) 75.9 H (45-73) % Lymph % (Auto) 12.0 L (20-40) % [place] % (Auto) 6.0 (2-11) % Eos % (Auto) 4.6 H (0-4) % Baso % (Auto) 1.2 (0-2) % Lymph # (Auto) 0.8 L (1.2-4.9) X10*3/uL [place] # (Auto) 0.4 (0.1-1.2) X10*3/uL Eos # (Auto) 0.3 (0.0-0.4) X10*3/uL Baso # (Auto) 0.1 (0.0-0.2) X10*3/uL Abs Immat Gran (auto) 0.02 (0.00-0.03) X10*3/uL Absolute Neuts (auto) 5.0 (2.0-8.3) x10*3/uL Absolute Nucleated RBC 0.000 (0.0-0.012) X10*3/uL Nucleated RBC % (auto) 0.0 (0.0-0.2) /100WBC POC Glucose 327 H (60-115) mg/dL Urine Color Yellow Urine Appearance Clear Urine pH 6.0 (5.0-9.0) Ur Specific [place] 1.010 (1.005-1.025) Urine Protein 300 (3+) H (Neg-Trace) mg/dL Urine Glucose (UA) 100 H (Negative) mg/dL Urine Ketones Negative (Negative) mg/dL Urine Blood Trace H (Negative) Urine Nitrite Negative (Negative) Ur Leukocyte Esterase Negative (Negative) Urine RBC 0-2 (0-2) /HPF Urine WBC 0-5 (0-5) /HPF Ur Squamous Epith Cells 0-2 (0-2) /HPF Urine Bacteria None Seen (None Seen) Hyaline Casts 0-2 (0-2) /LPF Discharge Plan Discharge Prescriptions: No Action cetirizine 10 mg tablet 10 mg PO DAILY Qty: 90 2RF ascorbate calcium (vitamin C) 500 mg tablet 500 mg PO DAILY 90 Days Qty: 90 3RF ipratropium-albuterol 0.5 mg-3 mg(2.5 mg base)/3 mL solution for nebulization 3 ml PO BID Qty: 180 10RF ferrous sulfate 325 mg (65 mg iron) tablet 325 mg PO DAILY Qty: 90 1RF BENEFIBER POW See Rx Instructions .ROUTE .COMPLEX Qty: 500 0RF Dose Instruction: TAKE 1 TABLESPOON (15ML) EVERY MORNING IN HOT CHOCOLATE OR DRINK OF CHOICE Rx Instructions: TAKE 1 TABLESPOON (15ML) EVERY MORNING IN HOT CHOCOLATE OR DRINK OF CHOICE lisinopril 5 mg tablet 5 mg PO DAILY Qty: 90 3RF cholecalciferol (vitamin D3) 25 mcg (1,000 unit) capsule 25 mcg PO DAILY 90 Days Qty: 90 3RF docusate sodium [DOK] 100 mg capsule 100 mg PO BID Qty: 180 3RF famotidine 10 mg tablet 10 mg PO BID 90 Days Qty: 180 3RF folic acid 800 mcg tablet 0.8 mg PO QAM Qty: 90 3RF simvastatin 10 mg tablet 10 mg PO BEDTIME Qty: 90 0RF aspirin [Adult Aspirin Regimen] 81 mg tablet,delayed release (DR/EC) 81 mg PO DAILY 90 Days Qty: 90 3RF tamsulosin 0.4 mg capsule 0.8 mg PO DAILY@1700 citalopram 20 mg Tablet 20 mg PO DAILY levothyroxine [Levoxyl] 100 mcg tablet 100 mcg PO DAILY Lantus Solostar U-100 Insulin 100 unit/mL (3 mL) insulin pen 6 unit subcut QPM insulin lispro [Humalog KwikPen Insulin] 100 unit/mL insulin pen See Rx Instructions subcut TID Rx Instructions: Sliding scale subcut 3 times a day ofloxacin [Ocuflox] 0.3 % drops 2 drp ophthalmic (eye) QID 5 Days Qty: 5 0RF Rx Instructions: Two drops to the right eye every 6 hours for 5 days. Discontinue after 5 days. (DME) pen needle, diabetic [Comfort EZ Pen [place]] 33 gauge x 5/32 needle See Rx Instructions .ROUTE .MEDSUPPLY Qty: 100 Rx Instructions: As directed
[2022-10-02 10:09] LABS: Alanine Aminotransferase 15 U/L (0-40); Albumin Level 2.8 g/dL (3.5-5.0); Alkaline Phosphatase 75 U/L (39-117); Anion Gap 10 (12-20); Aspartate Amino Transferase 14 U/L (5-37); Bilirubin Direct < 0.2 mg/dL (0.0-0.5); Bilirubin Total 0.3 mg/dL (0.0-1.0); Blood Urea Nitrogen 43 mg/dL (9-16); Calcium 8.2 mg/dL (8.4-10.2); Carbon Dioxide 28 mmol/L (22-29); Chloride 102 mmol/L (96-108); Creatinine Clr Calc Pharmacy 46.7; Estimated Glomerular Filt Rate 52; Glucose Random 361 mg/dL (60-115); Lipase 12 U/L (8-78); Potassium 5.6 mmol/L (3.3-5.1); Sodium 134 mmol/L (135-145); Total Protein 5.4 g/dL (6.5-8.0)
--- NOTE | 2022-10-02 10:13 | PC.NURSE ---
pt is a/o x 2 ( knows his name and where he is). [facility] caregiver at bedside. pt speaks in full sentences. pt has an intellectual disability per [employer]. abd soft and tender on palpitation. pt c/o abd pain. lab work done. pt/caregiver aware of plan of care.
[2022-10-02 10:19] LABS: Influenza A PCR NEGATIVE (Negative); Influenza B PCR NEGATIVE (Negative); Resp Syncy Virus RNA Qual PCR NEGATIVE (Negative); SARS COV2 PCR INHOUSE NEGATIVE (Negative)
--- NOTE | 2022-10-02 11:02 | ECG_ITS ---
Test Reason : elevated potassium Blood Pressure : / mmHG Vent. Rate : 062 BPM Atrial Rate : 062 BPM P-R Int : 108 ms QRS Dur : 086 ms QT Int : 418 ms P-R-T Axes : 048 -04 020 degrees QTc Int : 424 ms Sinus rhythm with short DC Otherwise normal ECG When compared with ECG of 27-MAR-2022 15:36, No significant change was found Referred By: Caitie Esparza Electronically Signed By:Jordan Nevarez
[2022-10-02] MEDS: 0.9 % Sodium Chloride 500 ML IV (11:34)
[2022-10-02 11:38] VITALS: BP 154/64; PULSE 63; RESP 19; TEMP 36.9; O2SAT 96
--- NOTE | 2022-10-02 12:08 | ED_ITS ---
HPI - Abdominal Pain General Chief Complaint: Abdominal Pain Stated Complaint: abd pain Time Seen by Provider: 10/02/22 09:07 Source: patient and other Mode of arrival: EMS History of Present Illness HPI narrative: 41-year-old male Down syndrome, diabetes, hypertension is brought in by EMS with his guardian from a [facility] and complaints of abdominal pain in the right lower quadrant since 06:00 o'clock this morning and associated diarrhea but denies any nausea, vomiting, fevers or chills. Related Data Home Medications Medication Instructions Recorded Confirmed insulin glargine 100 unit/mL (3 6 unit subcut QPM 05/13/20 09/28/22 mL) subcutaneous pen (Lantus Solostar U-100 Insulin) levothyroxine 100 mcg tablet 100 mcg PO DAILY 05/13/20 09/28/22 (Levoxyl) insulin lispro 100 unit/mL See Rx Instructions subcut TID 05/25/20 09/28/22 subcutaneous pen (Humalog KwikPen (U-100) Insulin) pen needle, diabetic 33 gauge x #100 ea 09/15/21 09/28/22 5/32 (Comfort EZ Pen [place]) citalopram 20 mg tablet 20 mg PO DAILY 03/27/22 09/28/22 tamsulosin 0.4 mg capsule 0.8 mg PO DAILY@1700 03/27/22 09/28/22 Previous Rx's Medication Instructions Recorded cetirizine 10 mg tablet 10 mg PO DAILY #90 tabs 07/08/22 ascorbate calcium (vitamin C) 500 500 mg PO DAILY 90 days #90 tabs 08/11/22 mg tablet ofloxacin 0.3 % eye drops (Ocuflox) 2 drp ophthalmic (eye) QID 5 days 08/15/22 #5 mL ferrous sulfate 325 mg (65 mg 325 mg PO DAILY #90 tabs 09/05/22 iron) tablet ipratropium 0.5 mg-albuterol 3 mg 3 ml PO BID #180 mL 09/05/22 (2.5 mg base)/3 mL nebulization soln BENEFIBER POW See Rx Instructions .Route 09/07/22 .COMPLEX #500 grams aspirin 81 mg tablet,delayed 81 mg PO DAILY 90 days #90 tabs 09/18/22 release (Adult Aspirin Regimen) cholecalciferol (vitamin D3) 25 25 mcg PO DAILY 90 days #90 caps 09/18/22 mcg (1,000 unit) capsule docusate sodium 100 mg capsule 100 mg PO BID #180 caps 09/18/22 (DOK) famotidine 10 mg tablet 10 mg PO BID 90 days #180 tabs 09/18/22 folic acid 800 mcg tablet 0.8 mg PO QAM #90 tabs 09/18/22 lisinopril 5 mg tablet 5 mg PO DAILY #90 tabs 09/18/22 simvastatin 10 mg tablet 10 mg PO BEDTIME #90 tabs 09/18/22 Allergies Allergy/AdvReac Type Severity Reaction Status Date / Time Sulfa (Sulfonamide Allergy Intermediate ITCHING Verified 09/28/22 09:12 Antibiotics) [SULFA(SULFONAMIDE ANTIBIOTICS)] Review of Systems Review of Systems Pertinent positives and negatives as stated in HPI [facility] Past Medical History Source: nursing notes reviewed Medical History Anxiety and depression Ascites BPH (benign prostatic hyperplasia) Cellulitis Constipation Diabetes mellitus type 1 Down syndrome GERD (gastroesophageal reflux disease) Hypercholesterolemia Hypothyroid Mental and behavioral problem Pericardial effusion Pseudoseizures Renal insufficiency Urethral meatal stenosis Surgical History Hx of cataract surgery Family History Family History Father Medical history unknown Mother Medical history unknown Social History Social History Household Members: Other Household Members Other:: other residents and staff Housing: Other Housing Other:: Long Term Do you presently have visiting nurse or other home services: No Alcohol intake: never Patient Tobacco Use Status: Never used Tobacco Smoked in Last 30 Days: No e-Cigarette/Vaping Use: Never Used Second Hand Smoke Exposure: No Use of substances other than those prescribed or required for medical reasons: No Advance Directives: Yes Advance Directives Information Provided: Yes Advance Directives on File: No service: No Current occupational status: disabled Cognitive needs: No Hearing needs: No Vision needs: No Physical Exam ED Vital Signs: Vital Signs - 24 hr 10/02/22 09:13 10/02/22 11:38 Temperature 98.3 F 98.4 F Pulse Rate 66 63 Respiratory Rate 16 19 Blood Pressure 164/62 H 154/64 H Pulse Oximetry 100 96 Oxygen Delivery Method Room Air Room Air BMI result Body Mass Index 26.5 VITAL SIGNS: Reviewed. GENERAL: Well developed, well nourished, in no acute distress. HEAD: Normocephalic/atraumatic EYES: PERRLA, EOMI LUNGS: Normal breath sounds. No adventitious sounds or accessory muscle use. SpO2<96> CARDIOVASCULAR: Regular rate and rhythm without noted murmurs ABDOMEN: Soft, tenderness noted in right lower quadrant, non-distended with b owel sounds. MUSCULOSKELETAL: No tenderness, deformities, or effusions noted on gross inspection. EXTREMITIES: No cyanosis, clubbing or edema. SKIN: Inspection of the skin reveals no rashes NEUROLOGIC: Alert and oriented x 4. Strength and sensation to light touch were grossly intact x 4. Medical Decision Making Medical Decision Making [facility] Narrative: 1210: This is a 41-year-old male with hyperglycemia but will rule out UTI, appendicitis, renal colic as opposed to constipation. Review of all investigations and my interpretation is patient had some mild electrolyte derangements that have been corrected with 500 cc of normal saline and otherwise patient is noted to have mild hyperglycemia but has medications and is not in DKA or HHS. In addition, has constipation and will recommend for MiraLax daily. Repeat electrolytes have normalized and patient is discharged back to the facility in stable condition. Differential Diagnosis Please see the discussion above Lab Data Please see the discussion above 10/02/22 09:35 10/02/22 09:34 Labs: Lab Results 10/02/22 10/02/22 10/02/22 Range/Units 09:34 09:34 09:34 WBC (4.8-10.8) X10*3/uL RBC (4.60-5.80) X10*6/uL Hgb (14.0-18.0) g/dl Hct (42.0-52.0) % MCV (80.0-98.0) fL MCH (27.0-33.0) pg MCHC (31.0-36.0) g/dl RDW (11.0-16.0) % Plt Count (160-400) X10*3/uL MPV (9.4-12.4) fL Immature Gran % (Auto) (0.0-0.4) % Neut % (Auto) (45-73) % Lymph % (Auto) (20-40) % [place] % (Auto) (2-11) % Eos % (Auto) (0-4) % Baso % (Auto) (0-2) % Lymph # (Auto) (1.2-4.9) X10*3/uL [place] # (Auto) (0.1-1.2) X10*3/uL Eos # (Auto) (0.0-0.4) X10*3/uL Baso # (Auto) (0.0-0.2) X10*3/uL Abs Immat Gran (auto) (0.00-0.03) X10*3/uL Absolute Neuts (auto) (2.0-8.3) x10*3/uL Absolute Nucleated RBC (0.0-0.012) X10*3/uL Nucleated RBC % (auto) (0.0-0.2) /100WBC Sodium 134 L (135-145) mmol/L Potassium 5.6 H (3.3-5.1) mmol/L Chloride 102 (96-108) mmol/L Carbon Dioxide 28 (22-29) mmol/L Anion Gap 10 L (12-20) BUN 43 H (9-16) mg/dL Creatinine 1.48 H (0.5-1.4) mg/dL Estim Creat Clear Calc 46.7 Estimated GFR 52 POC Glucose (60-115) mg/dL Random Glucose 361 H* (60-115) mg/dL Calcium 8.2 L (8.4-10.2) mg/dL Total Bilirubin 0.3 (0.0-1.0) mg/dL Direct Bilirubin < 0.2 (0.0-0.5) mg/dL AST 14 (5-37) U/L ALT 15 (0-40) U/L Alkaline Phosphatase 75 (39-117) U/L Troponin I High Sens (<3.5-35.0) ng/L Total Protein 5.4 L (6.5-8.0) g/dL Albumin 2.8 L (3.5-5.0) g/dL Lipase 12 (8-78) U/L Urine Color Yellow Urine Appearance Clear Urine pH 6.0 (5.0-9.0) Ur Specific [place] 1.010 (1.005-1.025) Urine Protein 300 (3+) H (Neg-Trace) mg/dL Urine Glucose (UA) 100 H (Negative) mg/dL Urine Ketones Negative (Negative) mg/dL Urine Blood Trace H (Negative) Urine Nitrite Negative (Negative) Ur Leukocyte Esterase Negative (Negative) Urine RBC 0-2 (0-2) /HPF Urine WBC 0-5 (0-5) /HPF Ur Squamous Epith Cells 0-2 (0-2) /HPF Urine Bacteria None Seen (None Seen) Hyaline Casts 0-2 (0-2) /LPF Influenza Type A (PCR) NEGATIVE (Negative) Influenza Type B (PCR) NEGATIVE (Negative) RSV RNA Qual (PCR) NEGATIVE (Negative) SARS-CoV-2 RNA (RT-PCR) NEGATIVE (Negative) 10/02/22 10/02/22 10/02/22 Range/Units 09:35 09:44 11:30 WBC 6.5 (4.8-10.8) X10*3/uL RBC 3.83 L (4.60-5.80) X10*6/uL Hgb 11.6 L (14.0-18.0) g/dl Hct 35.0 L (42.0-52.0) % MCV 91.4 (80.0-98.0) fL MCH 30.3 (27.0-33.0) pg MCHC 33.1 (31.0-36.0) g/dl RDW 13.0 (11.0-16.0) % Plt Count 309 (160-400) X10*3/uL MPV 8.9 L (9.4-12.4) fL Immature Gran % (Auto) 0.3 (0.0-0.4) % Neut % (Auto) 75.9 H (45-73) % Lymph % (Auto) 12.0 L (20-40) % [place] % (Auto) 6.0 (2-11) % Eos % (Auto) 4.6 H (0-4) % Baso % (Auto) 1.2 (0-2) % Lymph # (Auto) 0.8 L (1.2-4.9) X10*3/uL [place] # (Auto) 0.4 (0.1-1.2) X10*3/uL Eos # (Auto) 0.3 (0.0-0.4) X10*3/uL Baso # (Auto) 0.1 (0.0-0.2) X10*3/uL Abs Immat Gran (auto) 0.02 (0.00-0.03) X10*3/uL Absolute Neuts (auto) 5.0 (2.0-8.3) x10*3/uL Absolute Nucleated RBC 0.000 (0.0-0.012) X10*3/uL Nucleated RBC % (auto) 0.0 (0.0-0.2) /100WBC Sodium (135-145) mmol/L Potassium (3.3-5.1) mmol/L Chloride (96-108) mmol/L Carbon Dioxide (22-29) mmol/L Anion Gap (12-20) BUN (9-16) mg/dL Creatinine (0.5-1.4) mg/dL Estim Creat Clear Calc Estimated GFR POC Glucose 327 H (60-115) mg/dL Random Glucose (60-115) mg/dL Calcium (8.4-10.2) mg/dL Total Bilirubin (0.0-1.0) mg/dL Direct Bilirubin (0.0-0.5) mg/dL AST (5-37) U/L ALT (0-40) U/L Alkaline Phosphatase (39-117) U/L Troponin I High Sens 3.9 (<3.5-35.0) ng/L Total Protein (6.5-8.0) g/dL Albumin (3.5-5.0) g/dL Lipase (8-78) U/L Urine Color Urine Appearance Urine pH (5.0-9.0) Ur Specific [place] (1.005-1.025) Urine Protein (Neg-Trace) mg/dL Urine Glucose (UA) (Negative) mg/dL Urine Ketones (Negative) mg/dL Urine Blood (Negative) Urine Nitrite (Negative) Ur Leukocyte Esterase (Negative) Urine RBC (0-2) /HPF Urine WBC (0-5) /HPF Ur Squamous Epith Cells (0-2) /HPF Urine Bacteria (None Seen) Hyaline Casts (0-2) /LPF Influenza Type A (PCR) (Negative) Influenza Type B (PCR) (Negative) RSV RNA Qual (PCR) (Negative) SARS-CoV-2 RNA (RT-PCR) (Negative) 10/02/22 10/02/22 Range/Units 13:01 13:04 WBC (4.8-10.8) X10*3/uL RBC (4.60-5.80) X10*6/uL Hgb (14.0-18.0) g/dl Hct (42.0-52.0) % MCV (80.0-98.0) fL MCH (27.0-33.0) pg MCHC (31.0-36.0) g/dl RDW (11.0-16.0) % Plt Count (160-400) X10*3/uL MPV (9.4-12.4) fL Immature Gran % (Auto) (0.0-0.4) % Neut % (Auto) (45-73) % Lymph % (Auto) (20-40) % [place] % (Auto) (2-11) % Eos % (Auto) (0-4) % Baso % (Auto) (0-2) % Lymph # (Auto) (1.2-4.9) X10*3/uL [place] # (Auto) (0.1-1.2) X10*3/uL Eos # (Auto) (0.0-0.4) X10*3/uL Baso # (Auto) (0.0-0.2) X10*3/uL Abs Immat Gran (auto) (0.00-0.03) X10*3/uL Absolute Neuts (auto) (2.0-8.3) x10*3/uL Absolute Nucleated RBC (0.0-0.012) X10*3/uL Nucleated RBC % (auto) (0.0-0.2) /100WBC Sodium 137 (135-145) mmol/L Potassium 4.9 (3.3-5.1) mmol/L Chloride 104 (96-108) mmol/L Carbon Dioxide 29 (22-29) mmol/L Anion Gap 9 L (12-20) BUN 43 H (9-16) mg/dL Creatinine 1.38 (0.5-1.4) mg/dL Estim Creat Clear Calc 50.0 Estimated GFR 57 POC Glucose 246 H (60-115) mg/dL Random Glucose 257 H (60-115) mg/dL Calcium 8.2 L (8.4-10.2) mg/dL Total Bilirubin (0.0-1.0) mg/dL Direct Bilirubin (0.0-0.5) mg/dL AST (5-37) U/L ALT (0-40) U/L Alkaline Phosphatase (39-117) U/L Troponin I High Sens (<3.5-35.0) ng/L Total Protein (6.5-8.0) g/dL Albumin (3.5-5.0) g/dL Lipase (8-78) U/L Urine Color Urine Appearance Urine pH (5.0-9.0) Ur Specific [place] (1.005-1.025) Urine Protein (Neg-Trace) mg/dL Urine Glucose (UA) (Negative) mg/dL Urine Ketones (Negative) mg/dL Urine Blood (Negative) Urine Nitrite (Negative) Ur Leukocyte Esterase (Negative) Urine RBC (0-2) /HPF Urine WBC (0-5) /HPF Ur Squamous Epith Cells (0-2) /HPF Urine Bacteria (None Seen) Hyaline Casts (0-2) /LPF Influenza Type A (PCR) (Negative) Influenza Type B (PCR) (Negative) RSV RNA Qual (PCR) (Negative) SARS-CoV-2 RNA (RT-PCR) (Negative) Independent Interpretation I performed an independent interpretation of an: EKG Interpretation: Sinus rhythm with short NE, HR-62, no STEMI, NE-108, QRS/QTC are within normal limits. External Record Review External record reviewed: Outpatient record and Prior outpatient labs Chronic Conditions Patient?s care impacted by: Diabetes and Hypertension Medications Administered Discontinued Medications Generic Name Dose Route Start Last Admin Trade Name Freq PRN Reason Stop Dose Admin Sodium Chloride 500 mls @ 500 mls/hr 10/02/22 11:30 10/02/22 12:35 Ns IV 10/02/22 12:29 Infused .Q1H LINDA Infusion Critical Care Time Critical Care Time Critical Care Time: Yes Total Critical Care Time: 30 Attestation: I personally attest to this time spent taking care of the patient. Discharge Plan Discharge Clinical Impression: Constipation, Abdominal discomfort Patient Disposition: Home, Self-Care Instructions: Abdominal Pain (ED), Constipation (ED), High Fiber Diet (ED) Additional Instructions: 1. Resume all home medications. Increase the amount of water intake for the patient by encouraging more water. 2. Follow-up with primary care provider in the next 1-2 days for re-evaluation, but at this time I would recommend attempting [id number] MiraLax for relief of constipation. Return to the ER for any worsening symptoms. Prescriptions: No Action cetirizine 10 mg tablet 10 mg PO DAILY Qty: 90 2RF ascorbate calcium (vitamin C) 500 mg tablet 500 mg PO DAILY 90 Days Qty: 90 3RF ipratropium-albuterol 0.5 mg-3 mg(2.5 mg base)/3 mL solution for nebulization 3 ml PO BID Qty: 180 10RF ferrous sulfate 325 mg (65 mg iron) tablet 325 mg PO DAILY Qty: 90 1RF BENEFIBER POW See Rx Instructions .ROUTE .COMPLEX Qty: 500 0RF Dose Instruction: TAKE 1 TABLESPOON (15ML) EVERY MORNING IN HOT CHOCOLATE OR DRINK OF CHOICE Rx Instructions: TAKE 1 TABLESPOON (15ML) EVERY MORNING IN HOT CHOCOLATE OR DRINK OF CHOICE lisinopril 5 mg tablet 5 mg PO DAILY Qty: 90 3RF cholecalciferol (vitamin D3) 25 mcg (1,000 unit) capsule 25 mcg PO DAILY 90 Days Qty: 90 3RF docusate sodium [DOK] 100 mg capsule 100 mg PO BID Qty: 180 3RF famotidine 10 mg tablet 10 mg PO BID 90 Days Qty: 180 3RF folic acid 800 mcg tablet 0.8 mg PO QAM Qty: 90 3RF simvastatin 10 mg tablet 10 mg PO BEDTIME Qty: 90 0RF aspirin [Adult Aspirin Regimen] 81 mg tablet,delayed release (DR/EC) 81 mg PO DAILY 90 Days Qty: 90 3RF tamsulosin 0.4 mg capsule 0.8 mg PO DAILY@1700 citalopram 20 mg Tablet 20 mg PO DAILY levothyroxine [Levoxyl] 100 mcg tablet 100 mcg PO DAILY Lantus Solostar U-100 Insulin 100 unit/mL (3 mL) insulin pen 6 unit subcut QPM insulin lispro [Humalog KwikPen Insulin] 100 unit/mL insulin pen See Rx Instructions subcut TID Rx Instructions: Sliding scale subcut 3 times a day ofloxacin [Ocuflox] 0.3 % drops 2 drp ophthalmic (eye) QID 5 Days Qty: 5 0RF Rx Instructions: Two drops to the right eye every 6 hours for 5 days. Discontinue after 5 days. (DME) pen needle, diabetic [Comfort EZ Pen [place]] 33 gauge x 5/32 needle See Rx Instructions .ROUTE .MEDSUPPLY Qty: 100 Rx Instructions: As directed Referrals: Boris Mcgowan MD [Primary Care Provider] -
[2022-10-02 12:10] LABS: Troponin-I High Sensitivity 3.9 ng/L (<3.5-35.0)
[2022-10-02 13:05] LABS: Glucose, Whole Blood 246 mg/dL (60-115)
[2022-10-02 13:25] LABS: Anion Gap 9 (12-20); Blood Urea Nitrogen 43 mg/dL (9-16); Calcium 8.2 mg/dL (8.4-10.2); Carbon Dioxide 29 mmol/L (22-29); Chloride 104 mmol/L (96-108); Estimated Glomerular Filt Rate 57; Glucose Random 257 mg/dL (60-115); Potassium 4.9 mmol/L (3.3-5.1); Sodium 137 mmol/L (135-145)
[2022-10-02 13:43] VITALS: BP 157/62; PULSE 59; RESP 19; TEMP 36.9; O2SAT 97
== END 2022-10-02 13:54 | disposition home or self-care (01) ==
PROVIDERS: Emergency Provider Student in an Organized Health Care Education/Training Program; PCP Internal Medicine
DX: K59.00 Constipation, unspecified (principal); R10.13 Epigastric pain; E87.6 Hypokalemia; R10.31 Right lower quadrant pain; R94.31 Abnormal electrocardiogram [ECG] [EKG]; Z20.822 Contact with and (suspected) exposure to COVID-19; Z20.828 Contact with and (suspected) exposure to other viral communicable diseases; Z79.899 Other long term (current) drug therapy
CPT/HCPCS: 0241U; 36415; 74176; 80048; 80076; 81001; 82947; 83690; 84484; 85025; 93005; 96360; 99284; 99285

== ENCOUNTER 2022-10-26 10:44 | Outpatient (REF) | payer MEDICARE, MEDICAID, SELFPAY ==
--- NOTE | ~2022-10-26 | US_ITS ---
EXAMINATION: US PELVIS LIMITED (BLADDER) CLINICAL INFORMATION: Neuromuscular dysfunction of the bladder, unspecified. COMPARISON: CT abdomen and pelvis 10/02/2022. Renal ultrasound with bladder 03/03/2020 and 07/04/2018. TECHNIQUE: Real-time imaging of the bladder. FINDINGS: BLADDER: Thick-walled trabeculated bladder. Bilateral ureteral jets are demonstrated. Prevoid bladder volume is 131.5 mL. Postvoid bladder volume is 43.9 mL. Prostate gland does not appear enlarged. Prostate volume 17.9 mL. US/US bladder IMPRESSION: Thick walled trabeculated bladder. 44 mL post void bladder residual.
== END 2022-10-26 10:45 | disposition home or self-care (01) ==
LOC: HO.US 10:44
PROVIDERS: PCP Internal Medicine; Visit Provider Internal Medicine
DX: N31.9 Neuromuscular dysfunction of bladder, unspecified (principal)
CPT/HCPCS: 76857

== ENCOUNTER → 2022-11-28 09:26 | Outpatient (BNVA) | payer MEDICARE, MEDICAID, SELFPAY | PROVIDERS: PCP Internal Medicine; Visit Provider Internal Medicine Pulmonary Disease | DX: J84.112 Idiopathic pulmonary fibrosis (principal); R05.9 Cough, unspecified | CPT/HCPCS: 99212 ==

== ENCOUNTER 2023-01-24 10:42 | Outpatient (REF) | payer MEDICARE, MEDICAID, SELFPAY | END 2023-01-24 10:43 | disposition home or self-care (01) | LOC: HO.LAB 10:42 | PROVIDERS: PCP Internal Medicine; Visit Provider Nurse Practitioner Family | DX: Z12.5 Encounter for screening for malignant neoplasm of prostate (principal) | CPT/HCPCS: 36415; 84153 ==

== ENCOUNTER 2023-02-06 12:44 | Outpatient (REF) | payer MEDICARE, MEDICAID, SELFPAY | END 2023-02-06 12:45 | disposition home or self-care (01) | LOC: HO.SH 12:44 | PROVIDERS: Visit Provider Internal Medicine | DX: Z01.118 Encounter for examination of ears and hearing with other abnormal findings (principal); H90.3 Sensorineural hearing loss, bilateral | CPT/HCPCS: 92557 ==

== ENCOUNTER 2023-02-09 14:07 | Outpatient (AMB) | payer MEDICARE, MEDICAID, SELFPAY ==
--- NOTE | 2023-02-09 14:13 | AM.OFFWIN_ITS ---
Intake Vital Signs 02/09/23 14:16 BP 112/64 Blood Pressure Location Rt brachial Position Sitting Pulse 61 Pulse Source Pulse Oximeter Temp 96.7 F L Temp Source Temporal Artery Scan Pulse Oximetry (%) 99 Oxygen Delivery Method Room Air Intake Visit Reasons: EP abdominal pain(lobby) Intake Note: Patient here for abdominal pain and vomiting that started last night. He also has been itchy in the groin area and private. Patient Tobacco Use Status: Never used Tobacco Allergies Sulfa (Sulfonamide Antibiotics) [SULFA(SULFONAMIDE ANTIBIOTICS)] Allergy (Intermediate, Verified 02/09/23 15:48) ITCHING Do you need a note to return to daycare/school/sports/work: No HPI HPI Comments History of Present Illness Details This is a 42-year-old male with past medical history significant for Down syndrome and diabetes mellitus who presents to the office today for a sick visit. Patient and his senior biostatistician/group leader states that he has been complaining of an upset stomach and nausea since last night. Patient went to his adult daycare today and they called the jail as patient was vomiting. Patient reports diffuse abdominal pain. Patient reports some mild shortness of breath. He denies any chest pain. No diarrhea. No fevers or chills. Patient's caregiver states that the adult daycare took the patient's blood sugar and it just read ?high?. [facility] Medical History Anxiety and depression Ascites BPH (benign prostatic hyperplasia) Cellulitis Constipation Diabetes mellitus type 1 Down syndrome GERD (gastroesophageal reflux disease) Hypercholesterolemia Hypothyroid Mental and behavioral problem Pericardial effusion Pseudoseizures Renal insufficiency Urethral meatal stenosis Surgical History Hx of cataract surgery Family History (Updated 01/24/23 @ 10:37 by ZACK Espinosa) Father Medical history unknown Mother Medical history unknown Maternal Grandfather Prostate cancer Social History Household Members: Other Household Members Other:: other residents and staff Housing: Other Housing Other:: [facility] Do you presently have visiting nurse or other home services: No Alcohol intake: never Patient Tobacco Use Status: Never used Tobacco e-Cigarette/Vaping Use: Never Used Second Hand Smoke Exposure: No service: No Current occupational status: disabled Cognitive needs: No Hearing needs: No Vision needs: No Review of Systems Const All systems reviewed & are unremarkable except as noted in HPI and below Reports as per HPI Eyes Reports no additional complaints ENT Reports no additional complaints Card Reports no additional complaints and Reports dyspnea Resp Reports no additional complaints and Reports dyspnea GI Reports no additional complaints, Reports abdominal pain, Reports nausea and Reports vomiting Reports no additional complaints Musc Reports no additional complaints Skin/Breast Reports rash Neuro Reports no additional complaints Psych Reports no additional complaints Endo Details: + hyperglycemia Juan/Lymph Reports no additional complaints Aller/Immun Reports no additional complaints Physical Exam Vital Signs: Last Vital Signs Temp 96.7 F L 02/09/23 14:16 Pulse 61 02/09/23 14:16 BP 112/64 02/09/23 14:16 Pulse Ox 99 02/09/23 14:16 Oxygen Delivery Method Room Air 02/09/23 14:16 Const General: cooperative, comfortable and no acute distress Limitations: behavioral limitations HEENT Head: Yes normal to inspection Ears: hearing grossly normal bilaterally General nose exam: Normal external nose present Face and sinus: Yes normal facial exam Throat: Yes posterior oropharynx normal Resp Effort & Inspection: normal respiratory effort Auscultation: clear to auscultation bilaterally, no crackles, no rales, no rhonchi and no wheezes Cardio Rate: regular rate Rhythm: regular rhythm Heart sounds: no gallops, no murmurs and no rubs Peripheral pulses: Peripheral pulses 2+ throughout Skin Other: Beefy red erythematous rash of the bilateral inguinal regions with satellite lesions. Process Control Tech present during exam. Neuro Cranial nerves: Yes CN's II-XII intact bilaterally Cognition (Neuro): normal cognition Gait exam (Neuro): Normal gait present Motor exam (neuro): 5/5 motor strength present throughout Extrem General: Yes normal to inspection Results AMB Random Glucose (hemocue) AMB Random Glucose (hemocue) 322 mg/dL Last Edit by CHIARA Ledezma on 02/09/23 14:32 Results Reviewed Results Reviewed: Laboratory Last Values Random Glu (Clinic) 322 mg/dL 02/09/23 14:30 Assessment & Plan Assessment & Plan (1) Hyperglycemia: Code(s): R73.9 - Hyperglycemia, unspecified (2) Abdominal pain: Code(s): R10.9 - Unspecified abdominal pain (3) Tinea cruris: Code(s): B35.6 - Tinea cruris Plan This is a 42-year-old male with history of diabetes mellitus who presents to the office in the setting of abdominal pain and nausea/vomiting. Patient was found to be hyperglycemic at his daycare as well as at the office. I am concerned that patient could possibly have diabetic ketoacidosis causing his abdominal pain and nausea/vomiting. I recommended that patient proceed directly to the emergency room for further evaluation and management. Patient's senior biostatistician/group leader was in agreement and she agrees to bring patient directly to the emergency room. An ambulance was offered but senior biostatistician/group leader declined at this time. Prescription for nystatin cream was sent to patient's pharmacy. Orders: Orders 2 AMB Random Glucose (hemocue) Today Z13.9 - Encounter for screening, unspecified Medications: New nystatin 1 appl topical BID 15 grams 0RF Coding Level of Care Code Est Pt Level 3 (82672) Diagnoses Hyperglycemia R73.9 Abdominal pain R10.9 Tinea cruris B35.6
[2023-02-09 14:16] VITALS: BP 112/64; PULSE 61; TEMP 35.9; O2SAT 99
== END 2023-02-09 14:58 | disposition home or self-care (01) ==
PROVIDERS: PCP Internal Medicine; Visit Provider Physician Assistant Medical
DX: R73.9 Hyperglycemia, unspecified (principal); R10.9 Unspecified abdominal pain; B35.6 Tinea cruris; Z13.9 Encounter for screening, unspecified
CPT/HCPCS: 82948; 99213

== ENCOUNTER 2023-02-09 15:22 | Inpatient (IN) | payer MEDICARE, MEDICAID, SELFPAY ==
--- NOTE | ~2023-02-09 | CT_ITS ---
EXAMINATION: CT ABDOMEN AND PELVIS WITHOUT CONTRAST CLINICAL INFORMATION: Abdominal pain COMPARISON: 10/02/2022 TECHNIQUE: Multidetector volumetric imaging was performed from the superior aspect of the liver through the pubic symphysis. Sagittal and coronal reformatted images were obtained on the technologist's workstation. This CT examination was performed using dose optimization techniques as appropriate, variously including the following: *Automated exposure control *Adjustment of mA and/or kV according to patient size (this includes techniques or standardized protocols for targeted exams where dose is matched to indication/reason for exam; i.e. extremities or head) *Use of iterative reconstruction technique DLP: 559 mGy-cm FINDINGS: Suboptimal assessment in some regions due to motion artifact. LUNG BASES: The visualized lung bases are unremarkable. LIVER, GALLBLADDER, AND BILIARY TREE: The liver is normal in size, shape, and attenuation. No focal hepatic lesion or biliary ductal dilatation is identified on this noncontrast exam. The gallbladder is unremarkable. PANCREAS: Mildly atrophic. SPLEEN: Unremarkable. ADRENAL GLANDS: Unremarkable. KIDNEYS AND URETERS: No hydronephrosis or obstructing calculus bilaterally. Mild bilateral perinephric stranding. BLADDER: Unremarkable. GASTROINTESTINAL TRACT: No evidence of bowel obstruction or significant wall thickening. The appendix is unremarkable. No free fluid or free air is seen. ABDOMINAL WALL: Small fat-containing periumbilical hernia. LYMPH NODES: Normal. VASCULAR: Unremarkable. PELVIC VISCERA: Unremarkable. OSSEOUS STRUCTURES: Scattered endplate osteophytes noted in the spine. CT/CT abdomen pelvis wo IV con IMPRESSION: No acute findings identified in the abdomen/pelvis. Suboptimal assessment in some regions due to motion artifact.
--- NOTE | 2023-02-09 15:42 | ED_ITS ---
HPI - General Adult General Chief complaint: General Medical Stated complaint: R/O DKA/Sent from Urgent Care Time Seen by Provider: 02/09/23 19:02 Related Data Home Medications Medication Instructions Recorded Confirmed insulin glargine 100 unit/mL (3 6 unit subcut QPM 05/13/20 01/24/23 mL) subcutaneous pen (Lantus Solostar U-100 Insulin) levothyroxine 100 mcg tablet 100 mcg PO DAILY 05/13/20 01/24/23 (Levoxyl) insulin lispro 100 unit/mL See Rx Instructions subcut TID 05/25/20 01/24/23 subcutaneous pen (Humalog KwikPen (U-100) Insulin) pen needle, diabetic 33 gauge x #100 ea 09/15/21 01/24/23 (Comfort EZ Pen [place]) citalopram 20 mg tablet 20 mg PO DAILY 03/27/22 01/24/23 tamsulosin 0.4 mg capsule 0.8 mg PO DAILY@1700 03/27/22 01/24/23 Previous Rx's Medication Instructions Recorded cetirizine 10 mg tablet 10 mg PO DAILY #90 tabs 07/08/22 ascorbate calcium (vitamin C) 500 500 mg PO DAILY 90 days #90 tabs 08/11/22 mg tablet ferrous sulfate 325 mg (65 mg 325 mg PO DAILY #90 tabs 09/05/22 iron) tablet ipratropium 0.5 mg-albuterol 3 mg 3 ml PO BID #180 mL 09/05/22 (2.5 mg base)/3 mL nebulization soln aspirin 81 mg tablet,delayed 81 mg PO DAILY 90 days #90 tabs 09/18/22 release (Adult Aspirin Regimen) cholecalciferol (vitamin D3) 25 25 mcg PO DAILY 90 days #90 caps 09/18/22 mcg (1,000 unit) capsule famotidine 10 mg tablet 10 mg PO BID 90 days #180 tabs 09/18/22 folic acid 800 mcg tablet 0.8 mg PO QAM #90 tabs 09/18/22 lisinopril 5 mg tablet 5 mg PO DAILY #90 tabs 09/18/22 simvastatin 10 mg tablet 10 mg PO BEDTIME #90 tabs 09/18/22 sennosides 8.6 mg-docusate sodium 2 tab-cap PO BEDTIME #60 caps 10/04/22 50 mg capsule (Senna Plus) hydrocortisone 2.5 % topical cream 1 appl topical BID PRN skin 10/25/22 irritation #20 grams arformoterol 15 mcg/2 mL solution 2 ml inhalation BID 30 days #120 mL 11/28/22 for nebulization (Brovana) BENEFIBER POW See Rx Instructions .Route 12/08/22 .COMPLEX #500 grams white petrolatum 71.3 % topical See Rx Instructions topical 12/08/22 ointment (Desitin Multi-Purpose) .COMPLEX #99 grams nystatin 100,000 unit/gram topical 1 appl topical BID #15 grams 02/09/23 cream Allergies Allergy/AdvReac Type Severity Reaction Status Date / Time Sulfa (Sulfonamide Allergy Intermediate ITCHING Verified 02/09/23 15:48 Antibiotics) [SULFA(SULFONAMIDE ANTIBIOTICS)] [facility] Past Medical History Medical History Anxiety and depression Ascites BPH (benign prostatic hyperplasia) Cellulitis Constipation Diabetes mellitus type 1 Down syndrome GERD (gastroesophageal reflux disease) Hypercholesterolemia Hypothyroid Mental and behavioral problem Pericardial effusion Pseudoseizures Renal insufficiency Urethral meatal stenosis Surgical History Hx of cataract surgery Family History Family History Father Medical history unknown Mother Medical history unknown Maternal Grandfather Prostate cancer Social History Social History Household Members: Other Household Members Other:: other residents and staff Housing: Other Housing Other:: [facility] Do you presently have visiting nurse or other home services: No Alcohol intake: never Patient Tobacco Use Status: Never used Tobacco e-Cigarette/Vaping Use: Never Used Second Hand Smoke Exposure: No Advance Directives: No Advance Directives Information Provided: Yes service: No Current occupational status: disabled Cognitive needs: No Hearing needs: No Vision needs: No Physical Exam ED Vital Signs: Vital Signs - 24 hr 02/09/23 15:43 02/09/23 22:29 Temperature 96.8 F 98.2 F Pulse Rate 68 60 Respiratory Rate 16 16 Blood Pressure 152/60 H 130/53 L Pulse Oximetry 97 94 Oxygen Delivery Method Room Air Room Air BMI result Body Mass Index 27.6 Course Course Course Narrative: RME performed by Arlen Hernandez PA-C. Patient is a 42 year old assigned male at presenting to the emergency department with abdominal pain, nausea, vomiting, and an elevated blood sugar. Labs ordered. Patient placed back in the waiting room pending room availability and results. Medications Administered Discontinued Medications Generic Name Dose Route Start Last Admin Trade Name Yee PRN Reason Stop Dose Admin Acetaminophen 650 mg 02/09/23 19:10 02/09/23 19:17 Acetaminophen 325 Mg Tablet PO 02/09/23 19:11 650 mg ONCE ONE Administration Sodium Chloride 2,000 mls @ 999 mls/hr 02/09/23 19:05 02/09/23 21:13 Ns IVCONT 02/09/23 21:05 Infused .Q2H1M ONE Infusion Insulin Human Regular 10 unit 02/09/23 19:05 02/09/23 19:16 Insulin Regular, Human 100 Unit/Ml 3 Ml Vial IVPUSH 02/09/23 19:06 10 unit ONCE ONE Administration Insulin Human Regular 10 unit 02/09/23 19:53 02/09/23 20:01 Insulin Regular, Human 100 Unit/Ml 3 Ml Vial IVPUSH 02/09/23 19:54 10 unit ONCE ONE Administration Medical Decision Making Medical Decision Making [facility] Narrative: -after IV fluids and 10 units of IV insulin, patient's glucose down to 540. Patient receiving now more fluids and insulin, 10 more units, total of 20 now -my interpretation of chemistry, patient's sodium slightly improved, however patient is not hyponatremic, likely secondary to hyperglycemia. Creatinine improved to 1.58, close to baseline. Anion gap closed, glucose 472. Patient will be admitted. Patient discussed with Dr. Mackay -patient is poor historian, still having abdominal pain, we will go ahead and get a CT scan, Dr Mackay will follow Differential Diagnosis Differential Diagnoses: The differential diagnosis associated with the presentation includes (DKA, hyperglycemia) Admission/Observation Consideration of admission/observation: Escalation of care including admission/observation considered Consult Healthcare Provider Management of the patient was discussed with: Hospitalist Lab Data [facility] Lab Attestation statement: I reviewed the patient's lab results. 02/09/23 17:47 02/09/23 17:47 Labs: Lab Results 02/09/23 02/09/23 02/09/23 Range/Units 17:47 17:47 17:47 WBC 10.6 (4.8-10.8) X10*3/uL RBC 3.86 L (4.60-5.80) X10*6/uL Hgb 11.8 L (14.0-18.0) g/dl Hct 35.2 L (42.0-52.0) % MCV 91.2 (80.0-98.0) fL MCH 30.6 (27.0-33.0) pg MCHC 33.5 (31.0-36.0) g/dl RDW 12.5 (11.0-16.0) % Plt Count 336 (160-400) X10*3/uL MPV 10.0 (9.4-12.4) fL Immature Gran % (Auto) 0.4 (0.0-0.4) % Neut % (Auto) 82.6 H (45-73) % Lymph % (Auto) 10.6 L (20-40) % Carter % (Auto) 4.9 (2-11) % Eos % (Auto) 0.6 (0-4) % Baso % (Auto) 0.9 (0-2) % Lymph # (Auto) 1.1 L (1.2-4.9) X10*3/uL Carter # (Auto) 0.5 (0.1-1.2) X10*3/uL Eos # (Auto) 0.1 (0.0-0.4) X10*3/uL Baso # (Auto) 0.1 (0.0-0.2) X10*3/uL Abs Immat Gran (auto) 0.04 H (0.00-0.03) X10*3/uL Absolute Neuts (auto) 8.8 H (2.0-8.3) x10*3/uL Absolute Nucleated RBC 0.000 (0.0-0.012) X10*3/uL Nucleated RBC % (auto) 0.0 (0.0-0.2) /100WBC Sodium 122 L (135-145) mmol/L Potassium 5.7 H (3.3-5.1) mmol/L Chloride 92 L (96-108) mmol/L Carbon Dioxide 20 L (22-29) mmol/L Anion Gap 16 (12-20) BUN 58 H (9-16) mg/dL Creatinine 2.01 H (0.5-1.4) mg/dL Estim Creat Clear Calc 30.3 Estimated GFR 37 POC Glucose (60-115) mg/dL Random Glucose 677 H* (60-115) mg/dL Calcium 9.0 D (8.4-10.2) mg/dL Magnesium 2.2 (1.6-2.6) mg/dL Total Bilirubin 0.2 (0.0-1.0) mg/dL AST 15 (5-37) U/L ALT 18 (0-40) U/L Alkaline Phosphatase 97 (39-117) U/L Ammonia 37 (13-55) umol/L Total Protein 6.3 L (6.5-8.0) g/dL Albumin 2.8 L (3.5-5.0) g/dL Beta-Hydroxybutyrate 2.54 H (0.02-0.27) mmol/L Urine Color Urine Appearance Urine pH (5.0-9.0) Ur Specific [place] (1.005-1.025) Urine Protein (Neg-Trace) mg/dL Urine Glucose (UA) (Negative) mg/dL Urine Ketones (Negative) mg/dL Urine Blood (Negative) Urine Nitrite (Negative) Ur Leukocyte Esterase (Negative) Urine RBC (0-2) /HPF Urine WBC (0-5) /HPF Ur Squamous Epith Cells (0-2) /HPF Urine Bacteria (None Seen) Hyaline Casts (0-2) /LPF COVID-19 (DERRICK) (Negative) COVID-19 Clin Com Influenza Type A (SMILEY) (Negative) Influenza Type B (SMILEY) (Negative) Influenza A & B Note 02/09/23 02/09/23 02/09/23 Range/Units 17:48 17:48 17:48 WBC (4.8-10.8) X10*3/uL RBC (4.60-5.80) X10*6/uL Hgb (14.0-18.0) g/dl Hct (42.0-52.0) % MCV (80.0-98.0) fL MCH (27.0-33.0) pg MCHC (31.0-36.0) g/dl RDW (11.0-16.0) % Plt Count (160-400) X10*3/uL MPV (9.4-12.4) fL Immature Gran % (Auto) (0.0-0.4) % Neut % (Auto) (45-73) % Lymph % (Auto) (20-40) % Carter % (Auto) (2-11) % Eos % (Auto) (0-4) % Baso % (Auto) (0-2) % Lymph # (Auto) (1.2-4.9) X10*3/uL Carter # (Auto) (0.1-1.2) X10*3/uL Eos # (Auto) (0.0-0.4) X10*3/uL Baso # (Auto) (0.0-0.2) X10*3/uL Abs Immat Gran (auto) (0.00-0.03) X10*3/uL Absolute Neuts (auto) (2.0-8.3) x10*3/uL Absolute Nucleated RBC (0.0-0.012) X10*3/uL Nucleated RBC % (auto) (0.0-0.2) /100WBC Sodium (135-145) mmol/L Potassium (3.3-5.1) mmol/L Chloride (96-108) mmol/L Carbon Dioxide (22-29) mmol/L Anion Gap (12-20) BUN (9-16) mg/dL Creatinine (0.5-1.4) mg/dL Estim Creat Clear Calc Estimated GFR POC Glucose (60-115) mg/dL Random Glucose (60-115) mg/dL Calcium (8.4-10.2) mg/dL Magnesium (1.6-2.6) mg/dL Total Bilirubin (0.0-1.0) mg/dL AST (5-37) U/L ALT (0-40) U/L Alkaline Phosphatase (39-117) U/L Ammonia (13-55) umol/L Total Protein (6.5-8.0) g/dL Albumin (3.5-5.0) g/dL Beta-Hydroxybutyrate (0.02-0.27) mmol/L Urine Color Yellow Urine Appearance Clear Urine pH 5.5 (5.0-9.0) Ur Specific [place] 1.015 (1.005-1.025) Urine Protein 300 (3+) H (Neg-Trace) mg/dL Urine Glucose (UA) >=1000 H (Negative) mg/dL Urine Ketones 15 (Negative) mg/dL Urine Blood Trace H (Negative) Urine Nitrite Negative (Negative) Ur Leukocyte Esterase Negative (Negative) Urine RBC 0-2 (0-2) /HPF Urine WBC 0-5 (0-5) /HPF Ur Squamous Epith Cells 0-2 (0-2) /HPF Urine Bacteria None Seen (None Seen) Hyaline Casts 0-2 (0-2) /LPF COVID-19 (DERRICK) Negative (Negative) COVID-19 Clin Com See Note Influenza Type A (SMILEY) Negative (Negative) Influenza Type B (SMILEY) Negative (Negative) Influenza A & B Note See Note 02/09/23 02/09/23 02/09/23 Range/Units 19:51 21:14 23:10 WBC (4.8-10.8) X10*3/uL RBC (4.60-5.80) X10*6/uL Hgb (14.0-18.0) g/dl Hct (42.0-52.0) % MCV (80.0-98.0) fL MCH (27.0-33.0) pg MCHC (31.0-36.0) g/dl RDW (11.0-16.0) % Plt Count (160-400) X10*3/uL MPV (9.4-12.4) fL Immature Gran % (Auto) (0.0-0.4) % Neut % (Auto) (45-73) % Lymph % (Auto) (20-40) % Carter % (Auto) (2-11) % Eos % (Auto) (0-4) % Baso % (Auto) (0-2) % Lymph # (Auto) (1.2-4.9) X10*3/uL Carter # (Auto) (0.1-1.2) X10*3/uL Eos # (Auto) (0.0-0.4) X10*3/uL Baso # (Auto) (0.0-0.2) X10*3/uL Abs Immat Gran (auto) (0.00-0.03) X10*3/uL Absolute Neuts (auto) (2.0-8.3) x10*3/uL Absolute Nucleated RBC (0.0-0.012) X10*3/uL Nucleated RBC % (auto) (0.0-0.2) /100WBC Sodium 128 L (135-145) mmol/L Potassium 4.3 D (3.3-5.1) mmol/L Chloride 98 (96-108) mmol/L Carbon Dioxide 24 (22-29) mmol/L Anion Gap 10 L (12-20) BUN 51 H (9-16) mg/dL Creatinine 1.58 H (0.5-1.4) mg/dL Estim Creat Clear Calc 38.6 Estimated GFR 48 POC Glucose 543 H* 486 H* (60-115) mg/dL Random Glucose 472 H* (60-115) mg/dL Calcium 8.0 L D (8.4-10.2) mg/dL Magnesium (1.6-2.6) mg/dL Total Bilirubin (0.0-1.0) mg/dL AST (5-37) U/L ALT (0-40) U/L Alkaline Phosphatase (39-117) U/L Ammonia (13-55) umol/L Total Protein (6.5-8.0) g/dL Albumin (3.5-5.0) g/dL Beta-Hydroxybutyrate (0.02-0.27) mmol/L Urine Color Urine Appearance Urine pH (5.0-9.0) Ur Specific [place] (1.005-1.025) Urine Protein (Neg-Trace) mg/dL Urine Glucose (UA) (Negative) mg/dL Urine Ketones (Negative) mg/dL Urine Blood (Negative) Urine Nitrite (Negative) Ur Leukocyte Esterase (Negative) Urine RBC (0-2) /HPF Urine WBC (0-5) /HPF Ur Squamous Epith Cells (0-2) /HPF Urine Bacteria (None Seen) Hyaline Casts (0-2) /LPF COVID-19 (DERRICK) (Negative) COVID-19 Clin Com Influenza Type A (SMILEY) (Negative) Influenza Type B (SMILEY) (Negative) Influenza A & B Note Critical Care Time Critical Care Time Critical Care Time: Yes Total Critical Care Time: 90 Attestation: I have personally provided critical care time. Time includes review of lab data, radiology results, discussion with consultants, and monitoring for potential decompensation. Intervention performed as documented. Discharge Plan Discharge Clinical Impression: Diabetes mellitus type 1, JOSE (acute kidney injury), Acute hyperglycemia Patient Disposition: Admitted As Inpatient Prescriptions: No Action cetirizine 10 mg tablet 10 mg PO DAILY Qty: 90 2RF ascorbate calcium (vitamin C) 500 mg tablet 500 mg PO DAILY 90 Days Qty: 90 3RF ipratropium-albuterol 0.5 mg-3 mg(2.5 mg base)/3 mL solution for nebulization 3 ml PO BID Qty: 180 10RF ferrous sulfate 325 mg (65 mg iron) tablet 325 mg PO DAILY Qty: 90 1RF lisinopril 5 mg tablet 5 mg PO DAILY Qty: 90 3RF cholecalciferol (vitamin D3) 25 mcg (1,000 unit) capsule 25 mcg PO DAILY 90 Days Qty: 90 3RF famotidine 10 mg tablet 10 mg PO BID 90 Days Qty: 180 3RF folic acid 800 mcg tablet 0.8 mg PO QAM Qty: 90 3RF simvastatin 10 mg tablet 10 mg PO BEDTIME Qty: 90 0RF aspirin [Adult Aspirin Regimen] 81 mg tablet,delayed release (DR/EC) 81 mg PO DAILY 90 Days Qty: 90 3RF BENEFIBER POW See Rx Instructions .ROUTE .COMPLEX Qty: 500 2RF Dose Instruction: TAKE 1 TABLESPOON (15ML) EVERY MORNING IN HOT CHOCOLATE OR DRINK OF CHOICE Rx Instructions: TAKE 1 TABLESPOON (15ML) EVERY MORNING IN HOT CHOCOLATE OR DRINK OF CHOICE tamsulosin 0.4 mg capsule 0.8 mg PO DAILY@1700 citalopram 20 mg Tablet 20 mg PO DAILY levothyroxine [Levoxyl] 100 mcg tablet 100 mcg PO DAILY Lantus Solostar U-100 Insulin 100 unit/mL (3 mL) insulin pen 6 unit subcut QPM insulin lispro [Humalog KwikPen Insulin] 100 unit/mL insulin pen See Rx Instructions subcut TID Rx Instructions: Sliding scale subcut 3 times a day Desitin Multi-Purpose 71.3 % ointment See Rx Instructions topical .COMPLEX Qty: 99 12RF Rx Instructions: apply a small amount/daily after shower topically; head of penis Senna Plus 8.6-50 mg capsule 2 tab-cap PO BEDTIME Qty: 60 4RF hydrocortisone 2.5 % cream 1 appl topical BID PRN (Reason: skin irritation) Qty: 20 0RF nystatin 100,000 unit/gram cream 1 appl topical BID Qty: 15 0RF (DME) pen needle, diabetic [Comfort EZ Pen [place]] 33 gauge x 5/32 needle See Rx Instructions .ROUTE .MEDSUPPLY Qty: 100 Rx Instructions: As directed arformoterol [Brovana] 15 mcg/2 mL solution for nebulization 2 ml inhalation BID 30 Days Qty: 120 6RF
[2023-02-09 15:43] VITALS: BP 152/60; PULSE 68; RESP 16; TEMP 36; O2SAT 97; BMI 27.6
--- NOTE | 2023-02-09 17:51 | MHC.EDTECH ---
patient urine sample collected ,blood drawn and covid /flu swab collected all sent to lab .
[2023-02-09 17:52] LABS: MANUAL DIFF FLAG NO
[2023-02-09 17:56] LABS: Appearance Urine Clear; Color Urine Yellow; Glucose Urine UA >=1000 mg/dL (Negative); Leukocyte Esterase Urine Negative (Negative); Nitrite Urine Negative (Negative); PH 5.5 (5.0-9.0); Specific Gravity - Urine 1.015 (1.005-1.025); UMIC TRIGGER UACC YES; Urine Blood Trace (Negative); Urine Ketones 15 mg/dL (Negative); Urine Protein 300 (3+) mg/dL (Neg-Trace)
[2023-02-09 17:57] LABS: Basophils Absolute Auto 0.1 X10*3/uL (0.0-0.2); Basophils Percent Auto 0.9 % (0-2); Eosinophils Absolute Auto 0.1 X10*3/uL (0.0-0.4); Eosinophils Percent Auto 0.6 % (0-4); Hematocrit 35.2 % (42.0-52.0); Hemoglobin 11.8 g/dl (14.0-18.0); Imm Gran Abs Auto 0.04 X10*3/uL (0.00-0.03); Imm Gran Pct Auto 0.4 % (0.0-0.4); Lymphocytes Absolute Auto 1.1 X10*3/uL (1.2-4.9); Lymphocytes Percent Auto 10.6 % (20-40); Mean Corpuscular HGB Conc 33.5 g/dl (31.0-36.0); Mean Corpuscular Hemoglobin 30.6 pg (27.0-33.0); Mean Corpuscular Volume 91.2 fL (80.0-98.0); Monocytes Absolute Auto 0.5 X10*3/uL (0.1-1.2); Monocytes Percent Auto 4.9 % (2-11); Neutrophils Absolute Auto 8.8 x10*3/uL (2.0-8.3); Neutrophils Percent Auto 82.6 % (45-73); Platelet Count 336 X10*3/uL (160-400); Red Blood Count 3.86 X10*6/uL (4.60-5.80); Red Cell Distribution Width 12.5 % (11.0-16.0); White Blood Count 10.6 X10*3/uL (4.8-10.8)
[2023-02-09 17:59] LABS: Bacteria Urine None Seen (None Seen); Hyaline Casts Urine 0-2 /LPF (0-2); RBC Urine 0-2 /HPF (0-2); Squamous Epithelial Cell Urine 0-2 /HPF (0-2); WBC Urine 0-5 /HPF (0-5)
[2023-02-09 18:03] LABS: Ammonia 37 umol/L (13-55)
[2023-02-09 18:11] LABS: IDNOW Serial# 9DB6401D
[2023-02-09 18:12] LABS: COVID-19 Test Negative (Negative); IDNOW Serial# BCCEAD1C; Influenza A Negative (Negative); Influenza B2 Negative (Negative)
[2023-02-09 18:14] LABS: Alanine Aminotransferase 18 U/L (0-40); Albumin Level 2.8 g/dL (3.5-5.0); Alkaline Phosphatase 97 U/L (39-117); Anion Gap 16 (12-20); Aspartate Amino Transferase 15 U/L (5-37); Bilirubin Total 0.2 mg/dL (0.0-1.0); Blood Urea Nitrogen 58 mg/dL (9-16); Carbon Dioxide 20 mmol/L (22-29); Chloride 92 mmol/L (96-108); Creatinine Clr Calc Pharmacy 30.3; Estimated Glomerular Filt Rate 37; Glucose Random 677 mg/dL (60-115); Magnesium 2.2 mg/dL (1.6-2.6); Potassium 5.7 mmol/L (3.3-5.1); Sodium 122 mmol/L (135-145); Total Protein 6.3 g/dL (6.5-8.0)
[2023-02-09] MEDS: 0.9 % Sodium Chloride 2,000 ML 999 ML IVCONT (19:11)
[2023-02-09] MEDS: Insulin Regular, Human 100 UNIT/ML 3 ML VIAL 10 UNIT IVPUSH ×2 (19:16→20:01)
[2023-02-09] MEDS: Acetaminophen 325 MG TABLET 650 MG PO (19:17)
[2023-02-09 19:45] LABS: Beta-Hydroxybutyrate 2.54 mmol/L (0.02-0.27)
[2023-02-09 19:56] LABS: Glucose, Whole Blood 543 mg/dL (60-115)
[2023-02-09 21:17] LABS: Glucose, Whole Blood 486 mg/dL (60-115)
[2023-02-09 22:29] VITALS: BP 130/53; PULSE 60; RESP 16; TEMP 36.8; O2SAT 94
--- NOTE | 2023-02-09 23:21 | PC.NURSE ---
resting comfortably. no distress noted. awaiting repeat lab results. independent with care. mental status at baseline. cont to monitor.
[2023-02-09 23:28] LABS: Anion Gap 10 (12-20); Blood Urea Nitrogen 51 mg/dL (9-16); Carbon Dioxide 24 mmol/L (22-29); Chloride 98 mmol/L (96-108); Creatinine Clr Calc Pharmacy 38.6; Estimated Glomerular Filt Rate 48; Potassium 4.3 mmol/L (3.3-5.1); Sodium 128 mmol/L (135-145)
[2023-02-09 23:30] LABS: Glucose Random 472 mg/dL (60-115)
--- NOTE | 2023-02-09 23:45 | PM.IMHP ---
History of Present Illness Date of Service: 02/09/23 Chief Complaint: Abdominal Pain This is a 42-year-old male with pertinent history of Down syndrome, insulin-dependent diabetes mellitus, mixed hyperlipidemia, hypothyroidism, mood disorder, essential hypertension, BPH who was brought to the emergency department evaluation of abdominal pain, nausea and vomiting. Patient was seen at urgent care and his creatinine and blood glucose was found to be elevated and he was sent to the ER. Patient reports generalized abdominal discomfort with associated nausea. Does not know if he vomited. Unable to obtain accurate review of systems. In the emergency department, patient's creatinine and blood glucose found to be elevated Review of Systems Review of Systems: Yes Unobtainable due to mental status [facility] Medical History Anxiety and depression Ascites BPH (benign prostatic hyperplasia) Cellulitis Constipation Diabetes mellitus type 1 Down syndrome GERD (gastroesophageal reflux disease) Hypercholesterolemia Hypothyroid Mental and behavioral problem Pericardial effusion Pseudoseizures Renal insufficiency Urethral meatal stenosis Family History Father Medical history unknown Mother Medical history unknown Maternal Grandfather Prostate cancer Surgical History Hx of cataract surgery Social History Household Members: Other Household Members Other:: other residents and staff Housing: Other Housing Other:: Halfway Do you presently have visiting nurse or other home services: No Alcohol intake: never Patient Tobacco Use Status: Never used Tobacco e-Cigarette/Vaping Use: Never Used Second Hand Smoke Exposure: No Advance Directives: No Advance Directives Information Provided: Yes service: No Current occupational status: disabled Cognitive needs: No Hearing needs: No Vision needs: No Meds Allergies Allergy/AdvReac Type Severity Reaction Status Date / Time Sulfa (Sulfonamide Allergy Intermediate ITCHING Verified 02/09/23 15:48 Antibiotics) [SULFA(SULFONAMIDE ANTIBIOTICS)] Home Medications Medication Instructions Recorded Confirmed Last Taken Type insulin glargine 100 unit/mL (3 6 unit subcut QPM 05/13/20 01/24/23 Unknown History mL) subcutaneous pen (Lantus Solostar U-100 Insulin) levothyroxine 100 mcg tablet 100 mcg PO DAILY 05/13/20 01/24/23 Unknown History (Levoxyl) insulin lispro 100 unit/mL See Rx Instructions subcut TID 05/25/20 01/24/23 Unknown History subcutaneous pen (Humalog KwikPen (U-100) Insulin) pen needle, diabetic 33 gauge x #100 ea 09/15/21 01/24/23 Unknown History (Comfort EZ Pen [place]) citalopram 20 mg tablet 20 mg PO DAILY 03/27/22 01/24/23 Unknown History tamsulosin 0.4 mg capsule 0.8 mg PO DAILY@1700 03/27/22 01/24/23 Unknown History Physical Exam Vital Signs and Narrative: Vital Signs: Last Vital Signs Temp 98.2 F 02/09/23 22:29 Pulse 60 02/09/23 22:29 Resp 16 02/09/23 22:29 BP 130/53 L 02/09/23 22:29 Pulse Ox 94 02/09/23 22:29 O2 Del Method Room Air 02/09/23 22:29 BMI result Body Mass Index 27.6 Middle-aged male lying in bed in no distress Neck supple, no JVD Regular rate and rhythm, S1-S2 heard Regular breath sounds bilaterally, no wheezing or crackles appreciated Abdomen with generalized tenderness to deep palpation, no guarding, no rigidity, no rebound tenderness Patient is awake, alert and oriented to self and place ; no focal motor deficit No pedal edema Results Labs 02/09/23 17:47 02/09/23 23:10 Labs: Laboratory Results - last 24 hr 02/09/23 02/09/23 02/09/23 17:47 17:47 17:47 MCV 91.2 MCH 30.6 MCHC 33.5 RDW 12.5 Plt Count 336 MPV 10.0 Immature Gran % (Auto) 0.4 Neut % (Auto) 82.6 H Lymph % (Auto) 10.6 L [place] % (Auto) 4.9 Eos % (Auto) 0.6 Baso % (Auto) 0.9 Lymph # (Auto) 1.1 L [place] # (Auto) 0.5 Eos # (Auto) 0.1 Baso # (Auto) 0.1 Abs Immat Gran (auto) 0.04 H Absolute Neuts (auto) 8.8 H Absolute Nucleated RBC 0.000 Nucleated RBC % (auto) 0.0 Anion Gap 16 Estim Creat Clear Calc 30.3 Estimated GFR 37 POC Glucose Random Glucose 677 H* Calcium 9.0 D Magnesium 2.2 Total Bilirubin 0.2 AST 15 ALT 18 Alkaline Phosphatase 97 Ammonia 37 Total Protein 6.3 L Albumin 2.8 L Beta-Hydroxybutyrate 2.54 H Urine Color Urine Appearance Urine pH Ur Specific [place] Urine Protein Urine Glucose (UA) Urine Ketones Urine Blood Urine Nitrite Ur Leukocyte Esterase Urine RBC Urine WBC Ur Squamous Epith Cells Urine Bacteria Hyaline Casts COVID-19 (DERRICK) COVID-19 Clin Com Influenza Type A (SMILEY) Influenza Type B (SMILEY) Influenza A & B Note 02/09/23 02/09/23 02/09/23 17:48 17:48 17:48 MCV MCH MCHC RDW Plt Count MPV Immature Gran % (Auto) Neut % (Auto) Lymph % (Auto) [place] % (Auto) Eos % (Auto) Baso % (Auto) Lymph # (Auto) [place] # (Auto) Eos # (Auto) Baso # (Auto) Abs Immat Gran (auto) Absolute Neuts (auto) Absolute Nucleated RBC Nucleated RBC % (auto) Anion Gap Estim Creat Clear Calc Estimated GFR POC Glucose Random Glucose Calcium Magnesium Total Bilirubin AST ALT Alkaline Phosphatase Ammonia Total Protein Albumin Beta-Hydroxybutyrate Urine Color Yellow Urine Appearance Clear Urine pH 5.5 Ur Specific [place] 1.015 Urine Protein 300 (3+) H Urine Glucose (UA) >=1000 H Urine Ketones 15 Urine Blood Trace H Urine Nitrite Negative Ur Leukocyte Esterase Negative Urine RBC 0-2 Urine WBC 0-5 Ur Squamous Epith Cells 0-2 Urine Bacteria None Seen Hyaline Casts 0-2 COVID-19 (DERRICK) Negative COVID-19 Clin Com See Note Influenza Type A (SMILEY) Negative Influenza Type B (SMILEY) Negative Influenza A & B Note See Note 02/09/23 02/09/23 02/09/23 19:51 21:14 23:10 MCV MCH MCHC RDW Plt Count MPV Immature Gran % (Auto) Neut % (Auto) Lymph % (Auto) [place] % (Auto) Eos % (Auto) Baso % (Auto) Lymph # (Auto) [place] # (Auto) Eos # (Auto) Baso # (Auto) Abs Immat Gran (auto) Absolute Neuts (auto) Absolute Nucleated RBC Nucleated RBC % (auto) Anion Gap 10 L Estim Creat Clear Calc 38.6 Estimated GFR 48 POC Glucose 543 H* 486 H* Random Glucose 472 H* Calcium 8.0 L D Magnesium Total Bilirubin AST ALT Alkaline Phosphatase Ammonia Total Protein Albumin Beta-Hydroxybutyrate Urine Color Urine Appearance Urine pH Ur Specific [place] Urine Protein Urine Glucose (UA) Urine Ketones Urine Blood Urine Nitrite Ur Leukocyte Esterase Urine RBC Urine WBC Ur Squamous Epith Cells Urine Bacteria Hyaline Casts COVID-19 (DERRICK) COVID-19 Clin Com Influenza Type A (SMILEY) Influenza Type B (SMILEY) Influenza A & B Note Assessment and Plan (1) JOSE (acute kidney injury): Status: Acute Plan This is a 42-year-old male with pertinent history of Down syndrome, insulin-dependent diabetes mellitus, mixed hyperlipidemia, hypothyroidism, mood disorder, essential hypertension, BPH who was brought to the emergency department evaluation of abdominal pain, nausea and vomiting. #. Uncontrolled insulin-dependent diabetes mellitus with hyperglycemia. Resuscitated with IV crystalloids in the ER. Initiating basal plus regimen. Optimize insulin regimen #. Abdominal pain with nausea. Likely in the setting of above. CT scan ordered in the ER, pending #. Acute kidney injury stage I, nonoliguric on CKD. Likely prerenal. Monitor creatinine and urine output with fluid resuscitation and avoid nephrotoxins. #. Pseudo hyponatremia due to hyperglycemia #. Mixed hyperlipidemia. On statin #. Hypothyroidism. On Synthroid #. Mood disorder. Continue home mood stabilizers #. BPH. On Flomax Med rec pending DVT prophylaxis: Lovenox DNR/DNI Diabetic diet Admit as inpatient and will require two night minimum hospital stay for close monitoring of kidney function and optimizing antihyperglycemics Time Spent With Patient Time: Total time managing care of this patient today ____ minutes. Quality Stroke Does the patient have a stroke diagnosis?: No VTE Prior VTE?: No VTE Risk Level:: Medical - moderate - high VTE Device Contraindication: Treatment Not Indicated VTE Drug Contraindication: N/A - Med Ordered
[2023-02-10] MEDS: 0.9 % Sodium Chloride 1,000 ML 999 ML IV (00:31)
[2023-02-10] MEDS: Enoxaparin Sodium 40 MG/0.4 ML SYRINGE SUBCUT (00:32)
[2023-02-10] MEDS: Insulin Regular, Human 100 UNIT/ML 3 ML VIAL IVPUSH (00:32)
[2023-02-10] MEDS: Insulin Glargine,Hum.rec.anlog 100 UNIT/ML 10 ML VIAL 10 UNIT SUBCUT (00:32)
[2023-02-10 01:14] LABS: Glucose, Whole Blood 321 mg/dL (60-115)
[2023-02-10] MEDS: Insulin Lispro 100 UNIT/ML 3 ML VIAL SUBCUT ×2 (01:16→11:53)
[2023-02-10 01:45] VITALS: BMI 28.0
[2023-02-10 01:46] VITALS: BP 128/61; PULSE 66; RESP 18; TEMP 36.2; O2SAT 100
[2023-02-10] MEDS: 0.9 % Sodium Chloride Flush 3 ML SYRINGE IVFLUSH ×2 (01:51→07:58)
[2023-02-10 04:13] LABS: Glucose, Whole Blood 139 mg/dL (60-115)
[2023-02-10 07:29] VITALS: BP 130/60; PULSE 70; RESP 18; TEMP 36.3; O2SAT 95
[2023-02-10 07:34] LABS: MANUAL DIFF FLAG NO
[2023-02-10 07:41] LABS: Basophils Absolute Auto 0.1 X10*3/uL (0.0-0.2); Basophils Percent Auto 1.6 % (0-2); Eosinophils Absolute Auto 0.4 X10*3/uL (0.0-0.4); Eosinophils Percent Auto 5.7 % (0-4); Hematocrit 34.2 % (42.0-52.0); Hemoglobin 11.4 g/dl (14.0-18.0); Imm Gran Abs Auto 0.03 X10*3/uL (0.00-0.03); Imm Gran Pct Auto 0.5 % (0.0-0.4); Lymphocytes Absolute Auto 1.1 X10*3/uL (1.2-4.9); Lymphocytes Percent Auto 18.5 % (20-40); Mean Corpuscular HGB Conc 33.3 g/dl (31.0-36.0); Mean Corpuscular Hemoglobin 29.8 pg (27.0-33.0); Mean Corpuscular Volume 89.5 fL (80.0-98.0); Mean Platelet Volume 9.7 fL (9.4-12.4); Monocytes Absolute Auto 0.5 X10*3/uL (0.1-1.2); Monocytes Percent Auto 8.9 % (2-11); Neutrophils Percent Auto 64.8 % (45-73); Platelet Count 406 X10*3/uL (160-400); Red Blood Count 3.82 X10*6/uL (4.60-5.80); Red Cell Distribution Width 12.7 % (11.0-16.0); White Blood Count 6.1 X10*3/uL (4.8-10.8)
[2023-02-10 07:52] LABS: Glucose, Whole Blood 48 mg/dL (60-115)
[2023-02-10] MEDS: Dextrose 50 % 25 GM/50 ML SYRINGE IVPUSH (07:58)
[2023-02-10 08:05] LABS: Anion Gap 10 (12-20); Blood Urea Nitrogen 38 mg/dL (9-16); Calcium 8.3 mg/dL (8.4-10.2); Carbon Dioxide 27 mmol/L (22-29); Chloride 106 mmol/L (96-108); Creatinine Clr Calc Pharmacy 52.1; Estimated Glomerular Filt Rate > 60; Glucose Random 46 mg/dL (60-115); Potassium 3.9 mmol/L (3.3-5.1); Sodium 139 mmol/L (135-145)
[2023-02-10 08:27] LABS: Glucose, Whole Blood 220 mg/dL (60-115)
--- NOTE | 2023-02-10 09:29 | PM.DS ---
DS: Providers Provider Date of Service: 02/10/23 Date of admission: 02/09/23 23:48 Primary care physician: Boris Mcgowan MD DS: Diagnosis Discharge Diagnosis (1) JOSE (acute kidney injury): Status: Acute DS: Summary Hospital Course Hospital Course: Chief Complaint: Abdominal Pain This is a 42-year-old male with pertinent history of Down syndrome, insulin-dependent diabetes mellitus, mixed hyperlipidemia, hypothyroidism, mood disorder, essential hypertension, BPH who was brought to the emergency department evaluation of abdominal pain, nausea and vomiting.? Patient was seen at urgent care and his creatinine and blood glucose was found to be elevated and he was sent to the ER.? Patient reports generalized abdominal discomfort with associated nausea.? Does not know if he vomited.? Unable to obtain accurate review of systems. In the emergency department, patient's creatinine and blood glucose found to be elevated Hospital course: #.? Uncontrolled insulin-dependent diabetes mellitus with hyperglycemia, normal AGAP, Bicab of 20 only ... elevated Bethdroxy buterate so possible mild dka, but now normal bican and and hypoglycemia. I am told he's a very brittle diabetes and is followed by an endocrinoligist. Family is well aware of measures to take regarding lows or highs .? Abdominal pain with nausea.? Likely related to hyperglycemia and has resolved. CT showed no acute finding #.? Acute kidney injury due to dehydration from glucosura, resolved with IVF #.? Pseud hyponatremia due to hyperglycemia, resolved #.? Mixed hyperlipidemia.? On statin #.? Hypothyroidism.? On Synthroid #.? Mood disorder.? Continue home mood stabilizers Dispo: home Time Spent with Patient Time attestation: Total time managing care of this patient today ____ minutes. Discharge coordination time: Greater than 30 minutes Quality: Safe Use of Opioids Does Pt have an Active Cancer Diagnosis on the Problem List?: No Quality: Stroke Does the patient have a stroke diagnosis?: No Physical Exam Vital Signs: Vital Signs: Last Vital Signs Temp 97.4 F 02/10/23 07:29 Pulse 70 02/10/23 07:29 Resp 18 02/10/23 07:29 BP 130/60 02/10/23 07:29 Pulse Ox 95 02/10/23 07:29 O2 Del Method Room Air 02/10/23 07:29 BMI result Body Mass Index 28.0 Const: Other: General: AO X, no acute distress Resp: CTA bilateral CVS: S1,S2,RRR GI: +BS, NT, no distention Skin: No rash Neuro: motor grossly intact Psych: appropriate affect DS: Data Data Completed and Pending Labs on day of discharge: Laboratory Results - last 24 hr 02/09/23 02/09/23 02/09/23 17:47 17:47 17:47 WBC 10.6 RBC 3.86 L Hgb 11.8 L Hct 35.2 L MCV 91.2 MCH 30.6 MCHC 33.5 RDW 12.5 Plt Count 336 MPV 10.0 Immature Gran % (Auto) 0.4 Neut % (Auto) 82.6 H Lymph % (Auto) 10.6 L [place] % (Auto) 4.9 Eos % (Auto) 0.6 Baso % (Auto) 0.9 Lymph # (Auto) 1.1 L [place] # (Auto) 0.5 Eos # (Auto) 0.1 Baso # (Auto) 0.1 Abs Immat Gran (auto) 0.04 H Absolute Neuts (auto) 8.8 H Absolute Nucleated RBC 0.000 Nucleated RBC % (auto) 0.0 Sodium 122 L Potassium 5.7 H Chloride 92 L Carbon Dioxide 20 L Anion Gap 16 BUN 58 H Creatinine 2.01 H Estim Creat Clear Calc 30.3 Estimated GFR 37 POC Glucose Random Glucose 677 H* Calcium 9.0 D Magnesium 2.2 Total Bilirubin 0.2 AST 15 ALT 18 Alkaline Phosphatase 97 Ammonia 37 Total Protein 6.3 L Albumin 2.8 L Beta-Hydroxybutyrate 2.54 H Urine Color Urine Appearance Urine pH Ur Specific [place] Urine Protein Urine Glucose (UA) Urine Ketones Urine Blood Urine Nitrite Ur Leukocyte Esterase Urine RBC Urine WBC Ur Squamous Epith Cells Urine Bacteria Hyaline Casts COVID-19 (DERRICK) COVID-19 Clin Com Influenza Type A (SMILEY) Influenza Type B (SMILEY) Influenza A & B Note 02/09/23 02/09/23 02/09/23 17:48 17:48 17:48 WBC RBC Hgb Hct MCV MCH MCHC RDW Plt Count MPV Immature Gran % (Auto) Neut % (Auto) Lymph % (Auto) [place] % (Auto) Eos % (Auto) Baso % (Auto) Lymph # (Auto) [place] # (Auto) Eos # (Auto) Baso # (Auto) Abs Immat Gran (auto) Absolute Neuts (auto) Absolute Nucleated RBC Nucleated RBC % (auto) Sodium Potassium Chloride Carbon Dioxide Anion Gap BUN Creatinine Estim Creat Clear Calc Estimated GFR POC Glucose Random Glucose Calcium Magnesium Total Bilirubin AST ALT Alkaline Phosphatase Ammonia Total Protein Albumin Beta-Hydroxybutyrate Urine Color Yellow Urine Appearance Clear Urine pH 5.5 Ur Specific [place] 1.015 Urine Protein 300 (3+) H Urine Glucose (UA) >=1000 H Urine Ketones 15 Urine Blood Trace H Urine Nitrite Negative Ur Leukocyte Esterase Negative Urine RBC 0-2 Urine WBC 0-5 Ur Squamous Epith Cells 0-2 Urine Bacteria None Seen Hyaline Casts 0-2 COVID-19 (DERRICK) Negative COVID-19 Clin Com See Note Influenza Type A (SMILEY) Negative Influenza Type B (SMILEY) Negative Influenza A & B Note See Note 02/09/23 02/09/23 02/09/23 19:51 21:14 23:10 WBC RBC Hgb Hct MCV MCH MCHC RDW Plt Count MPV Immature Gran % (Auto) Neut % (Auto) Lymph % (Auto) [place] % (Auto) Eos % (Auto) Baso % (Auto) Lymph # (Auto) [place] # (Auto) Eos # (Auto) Baso # (Auto) Abs Immat Gran (auto) Absolute Neuts (auto) Absolute Nucleated RBC Nucleated RBC % (auto) Sodium 128 L Potassium 4.3 D Chloride 98 Carbon Dioxide 24 Anion Gap 10 L BUN 51 H Creatinine 1.58 H Estim Creat Clear Calc 38.6 Estimated GFR 48 POC Glucose 543 H* 486 H* Random Glucose 472 H* Calcium 8.0 L D Magnesium Total Bilirubin AST ALT Alkaline Phosphatase Ammonia Total Protein Albumin Beta-Hydroxybutyrate Urine Color Urine Appearance Urine pH Ur Specific [place] Urine Protein Urine Glucose (UA) Urine Ketones Urine Blood Urine Nitrite Ur Leukocyte Esterase Urine RBC Urine WBC Ur Squamous Epith Cells Urine Bacteria Hyaline Casts COVID-19 (DERRICK) COVID-19 Clin Com Influenza Type A (SMILEY) Influenza Type B (SMILEY) Influenza A & B Note 02/10/23 02/10/23 02/10/23 01:10 04:08 07:02 WBC 6.1 RBC 3.82 L Hgb 11.4 L Hct 34.2 L MCV 89.5 MCH 29.8 MCHC 33.3 RDW 12.7 Plt Count 406 H MPV 9.7 Immature Gran % (Auto) 0.5 H Neut % (Auto) 64.8 Lymph % (Auto) 18.5 L [place] % (Auto) 8.9 Eos % (Auto) 5.7 H Baso % (Auto) 1.6 Lymph # (Auto) 1.1 L [place] # (Auto) 0.5 Eos # (Auto) 0.4 Baso # (Auto) 0.1 Abs Immat Gran (auto) 0.03 Absolute Neuts (auto) 4.0 Absolute Nucleated RBC 0.000 Nucleated RBC % (auto) 0.0 Sodium Potassium Chloride Carbon Dioxide Anion Gap BUN Creatinine Estim Creat Clear Calc Estimated GFR POC Glucose 321 H 139 H Random Glucose Calcium Magnesium Total Bilirubin AST ALT Alkaline Phosphatase Ammonia Total Protein Albumin Beta-Hydroxybutyrate Urine Color Urine Appearance Urine pH Ur Specific [place] Urine Protein Urine Glucose (UA) Urine Ketones Urine Blood Urine Nitrite Ur Leukocyte Esterase Urine RBC Urine WBC Ur Squamous Epith Cells Urine Bacteria Hyaline Casts COVID-19 (DERRICK) COVID-19 Clin Com Influenza Type A (SMILEY) Influenza Type B (SMILEY) Influenza A & B Note 02/10/23 02/10/23 02/10/23 07:02 07:48 08:23 WBC RBC Hgb Hct MCV MCH MCHC RDW Plt Count MPV Immature Gran % (Auto) Neut % (Auto) Lymph % (Auto) [place] % (Auto) Eos % (Auto) Baso % (Auto) Lymph # (Auto) [place] # (Auto) Eos # (Auto) Baso # (Auto) Abs Immat Gran (auto) Absolute Neuts (auto) Absolute Nucleated RBC Nucleated RBC % (auto) Sodium 139 Potassium 3.9 Chloride 106 Carbon Dioxide 27 Anion Gap 10 L BUN 38 H Creatinine 1.18 Estim Creat Clear Calc 52.1 Estimated GFR > 60 POC Glucose 48 L* 220 H Random Glucose 46 L* Calcium 8.3 L Magnesium Total Bilirubin AST ALT Alkaline Phosphatase [place] Total Protein Albumin Beta-Hydroxybutyrate Urine Color Urine Appearance Urine pH Ur Specific [place] Urine Protein Urine Glucose (UA) Urine Ketones Urine Blood Urine Nitrite Ur Leukocyte Esterase Urine RBC Urine WBC Ur Squamous Epith Cells Urine Bacteria Hyaline Casts COVID-19 (DERRICK) COVID-19 Clin Com Influenza Type A (SMILEY) Influenza Type B (SMILEY) Influenza A & B Note Discharge Plan Discharge Anticipated Discharge Date/Time: 02/10/23 09:35 Patient Disposition: Home, Self-Care Discharge Diagnosis: Hyperglycemia, acute renal failure, abdominal pain Referrals: Po,Boris Mack MD [Primary Care Provider] - 1 Week Discharge Medications: Continued ipratropium-albuterol 0.5 mg-3 mg(2.5 mg base)/3 mL solution for nebulization 3 ml INHALATION BID PRN (Reason: Cough) Rx Instructions: rinse/wash mouth after each use famotidine [Pepcid AC] 10 mg Tablet 10 mg PO BID cetirizine 10 mg tablet 10 mg PO DAILY azithromycin 250 mg tablet 250 mg PO MOWEFR sennosides-docusate sodium [Stool Softener-Laxative] 8.6-50 mg tablet 2 tab PO BEDTIME simvastatin 10 mg tablet 10 mg PO BEDTIME aspirin 81 mg tablet,delayed release (DR/EC) 81 mg PO DAILY Rx Instructions: take with food guar gum Packet 1 tbsp PO DAILY Rx Instructions: mix into at least 4 oz water or juice before administering levothyroxine 100 mcg tablet 100 mcg PO DAILY@0600 citalopram 20 mg tablet 20 mg PO DAILY ascorbic acid (vitamin C) [Vitamin C] 500 mg Tablet 500 mg PO DAILY tamsulosin 0.4 mg capsule 0.8 mg PO DAILY@1700 lisinopril 5 mg tablet 5 mg PO DAILY metoprolol succinate 25 mg tablet extended release 24 hr 25 mg PO DAILY Protocol: Hold for SBP< HOLD for SBP < : 90 ferrous sulfate 325 mg (65 mg iron) tablet,delayed release (DR/EC) 325 mg PO DAILY folic acid 800 mcg tablet 0.8 mg PO DAILY insulin lispro [Humalog KwikPen Insulin] 100 unit/mL insulin pen 1 sliding scale dose subcut TIDAC Protocol: Insulin Correction Scale Less than or equal to 110 ---- Give (units): 0 111 to 150 Give (units): 0 151 to 200 Give (units): 2 201 to 250 Give (units): 4 251 to 300 Give (units): 6 301 to 350 Give (units): 8 Greater than 350 Give (units): 10 Call MD if Blood Glucose > : 350 ciclopirox 0.77 % cream 1 appl topical BID Rx Instructions: small amount to the bottom of the feet cholecalciferol (vitamin D3) [Vitamin D3] 25 mcg (1,000 unit) tablet 25 mcg PO DAILY arformoterol 15 mcg/2 mL solution for nebulization 2 ml inhalation BID insulin glargine [Lantus Solostar U-100 Insulin] 100 unit/mL (3 mL) Insulin Pen 12 unit SUBCUT BEDTIME Desitin 40 % Paste 1 appl TOPICAL DAILY Rx Instructions: small amount daily after shower topically to head of penis Discharge Orders: Discharge Order (Routine); Ordered 02/10/23 Ordered By: Shayan May Diet: Diabetic diet Activity on Discharge: As tolerated Stand Alone Forms: Patient Portal Discharge page Care Plan Goals: controlled of diabetes Health Concerns: uncontrolled diabetes, acute renal failure, Plan of Treatment: Take insulin as directed and follow up with your Doctor in a week to have your insulin further adjusted Assessment: as above
--- NOTE | 2023-02-10 09:39 | PHA.MEDREC ---
Pharmacy Consult ? Medication Reconciliation Pharmacy has completed the medication reconciliation. used list from [facility].
[2023-02-10 11:29] LABS: Glucose, Whole Blood 356 mg/dL (60-115)
--- NOTE | 2023-02-10 12:24 | MHC.CM.PN ---
Addendum entered by Brenda Fitzgerald 02/10/23 14:00: CM CONTINUES TO BE UNABLE TO REACH PTS LONG-TERM CM SPOKE WITH STAFF MEMBER AT BEDSIDE SHE IS AWARE THERE ARE NO MED CHANGES SHE REPORTS THE OTHER STAFF MAYBE ON AN OUTING WITH OTHER RESIDENTS SHE IS AWARE CM HAS NOT BEEN ABLE TO REACH ANYONE AND REPORTS SHE WILL TRANSPORT THE PT HOME PT DISCHARGED BACK TO HIS LONG-TERM TODAY WITH NO NEW ORDERS/MEDS STAFF MEMBER PROVIDED TRANSPORT Addendum entered by Brenda Fitzgerald 02/10/23 12:29: FAX CONFIRMATION RECEIVED Original Note: RUTHY MET WITH PTS MOTHER/GUARDIAN, FRANKLIN, AT BEDSIDE SHE REPORTS THE PT RESIDES IN A LONG-TERM WHERE THEY PROVIDE 24/7 SUPERVISION SHE REPORTS THE PT DOES NOT REQUIRE ANY DME AT BASELINE SHE REPORTS THE HAS A COPY OF PTS GUARDIANSHIP PCP: [facility] PO IMM DELIVERED PT IS READY TO DC TODAY, BACK TO THE LONG-TERM THE NUMBER LISTED FOR STAFF IS [phone], HOWEVER THIS APPEARS TO BE A FAX FAXED AN NOTICE OF INTENT TO DC PT AND PROVIDED A DIRECT CALL BACK NUMBER IF THEY HAVE QUESTIONS OR CONCERNS PER PTS RN, HE HAS HAD NO CHANGES IN MEDS/CARE NEEDS PTS MOTHER AND FREEZER ASSISTANT ARE AT BEDSIDE AND WILL PROVIDE TRANSPORT AT DC
== END 2023-02-10 13:33 | disposition home or self-care (01) | DRG 638 ==
LOC: HO.ED 02-10 00:12 → HO.EDOVER 02-10 00:20 → HO.S3 02-10 00:41
PROVIDERS: Physician Assistant Medical; Admitting Provider Student in an Organized Health Care Education/Training Program; Emergency Provider Emergency Medicine; PCP Internal Medicine; Visit Provider Internal Medicine
DX: E10.10 Type 1 diabetes mellitus with ketoacidosis without coma (principal); N17.9 Acute kidney failure, unspecified; Q90.9 Down syndrome, unspecified; E78.2 Mixed hyperlipidemia; Z66 Do not resuscitate; E03.9 Hypothyroidism, unspecified; E10.649 Type 1 diabetes mellitus with hypoglycemia without coma; F32.A Depression, unspecified; N40.0 Benign prostatic hyperplasia without lower urinary tract symptoms; F41.9 Anxiety disorder, unspecified; Z20.822 Contact with and (suspected) exposure to COVID-19; Z79.4 Long term (current) use of insulin; Z79.890 Hormone replacement therapy; Z79.899 Other long term (current) drug therapy
CPT/HCPCS: 36415; 74176; 80048; 80053; 81001; 82010; 82140; 82947; 83735; 85025; 87502; 87635; 99285; J1650

== ENCOUNTER → 2023-02-09 20:18 | Outpatient (BNV) | payer MEDICARE, MEDICAID, SELFPAY | PROVIDERS: Emergency Provider Emergency Medicine; PCP Internal Medicine; Visit Provider Student in an Organized Health Care Education/Training Program | DX: N17.9 Acute kidney failure, unspecified (principal) | CPT/HCPCS: 99222; 99239 ==

== ENCOUNTER 2023-02-14 15:08 | Outpatient (AMB) | payer MEDICARE, MEDICAID, SELFPAY ==
[2023-02-14 15:10] VITALS: BP 140/78; PULSE 57; O2SAT 98; BMI 28.3
--- NOTE | 2023-02-14 15:10 | MHC.PC.OV ---
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 Allergies Sulfa (Sulfonamide Antibiotics) [SULFA(SULFONAMIDE ANTIBIOTICS)] Allergy (Intermediate, Verified 02/14/23 15:24) ITCHING Medication List - Last Reconciled 02/14/23 by Mike Valentin PA-C arformoterol 2 mL inhalation BID ascorbic acid (vitamin C) (Vitamin C) 500 mg PO DAILY aspirin 81 mg PO DAILY azithromycin 250 mg PO MOWEFR cetirizine 10 mg PO DAILY cholecalciferol (vitamin D3) (Vitamin D3) 25 mcg PO DAILY ciclopirox 0.77% 1 appl topical BID citalopram 20 mg PO DAILY famotidine (Pepcid AC) 10 mg PO BID ferrous sulfate 325 mg PO DAILY folic acid 0.8 mg PO DAILY guar gum 1 tbsp PO DAILY insulin glargine (Lantus Solostar U-100 Insulin) 12 units subcut BEDTIME insulin lispro (Humalog KwikPen (U-100) Insulin) 1 sliding scale dose See Protocol subcut TIDAC ipratropium-albuterol 0.5 mg-3 mg(2.5 mg base)/3 mL 3 mL inhalation BID PRN levothyroxine 100 mcg PO DAILY@0600 lisinopril 5 mg PO DAILY metoprolol succinate ER 25 mg See Protocol PO DAILY sennosides-docusate sodium 8.6-50 mg (Stool Softener-Laxative) 2 tabs PO BEDTIME simvastatin 10 mg PO BEDTIME tamsulosin 0.8 mg PO DAILY@1700 zinc oxide-cod liver oil 40 % (Desitin) 1 appl topical DAILY Tobacco use date assessed: 02/14/23 H[place] [facility] [place]/Acute kidney failure HPI Details patient is a 42-year-old male with pertinent history of Down syndrome, insulin-dependent diabetes mellitus ( followed by endocrinology), mixed hyperlipidemia, hypothyroidism, mood disorder, essential hypertension, BPH who was brought to the emergency department evaluation of abdominal pain, nausea and vomiting. He was found to have hyperglycemia and acute kidney injury with elevated BUN and creatinine.. While in the ER he was given IV fluids and labs trended better, creatinine has stabilized. Currently patient at baseline state of health, no further abdominal pain, nausea or vomiting. 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 [facility] Medical History (Updated 02/14/23 @ 15:41 by Mike Valentin PA-C) Anxiety and depression Ascites BPH (benign prostatic hyperplasia) Cellulitis Constipation Diabetes mellitus type 1 Down syndrome GERD (gastroesophageal reflux disease) Hypercholesterolemia Hypothyroid Mental and behavioral problem Pericardial effusion Pseudoseizures Renal insufficiency Urethral meatal stenosis Surgical History Hx of cataract surgery Family History Father Medical history unknown Mother Medical history unknown Maternal Grandfather Prostate cancer Social History Household Members: None Household Members Other:: other residents and staff Housing: Other Housing Other:: long term Alcohol intake: never Patient Tobacco Use Status: Never used Tobacco e-Cigarette/Vaping Use: Never Used Second Hand Smoke Exposure: No service: No Current occupational status: disabled Cognitive needs: No Hearing needs: No Vision needs: No Questionnaire Thrive Questionnaire Date Thrive assessed: 02/10/23 AUDIT C Alcohol Use Questionnaire (AUDIT-C) 1. How often do you have a drink containing alcohol?: Never 3. How often do you have six or more drinks on one occasion?: Never Total Score: 0 Score Reviewed/Action Taken: No GAGE-7 AMB Questionnaire GAGE-7 Date GAGE - 7 assessed: 08/31/22 Source: Developed by Drs. Rhys Carvalho, Bernadette Flanagan, Sundeep Gee and colleagues, with an educational odilon from [employer]. Review of Systems Const Denies headache(s) Eyes Denies loss of vision ENT Denies vertigo, Denies dizziness, Denies headache(s) and Denies sore throat Card Denies chest pain, Denies leg edema and Denies lightheadedness Resp Denies cough, Denies hemoptysis and Denies wheezing GI Denies abdominal pain, Denies melena, Denies constipation, Denies diarrhea and Denies vomiting Denies dysuria, Denies urinary frequency and Denies urinary urgency Musc Denies arthralgias, Denies joint swelling, Denies numbness and Denies tingling Neuro Denies Abnormal speech present, Denies behavioral changes, Denies vertigo, Denies dizziness, Denies headache(s), Denies loss of vision, Denies memory loss, Denies numbness and Denies tingling Psych Denies anxiety, Denies behavioral changes, Denies depression, Denies memory loss and Denies panic attacks Juan/Lymph Denies easy bleeding and Denies easy bruising Aller/Immun Denies wheezing Physical exam (Primary Care) Vital Signs: Last Vital Signs Pulse 57 02/14/23 15:10 BP 140/78 H 02/14/23 15:10 Pulse Ox 98 02/14/23 15:10 Oxygen Delivery Method Room Air 02/14/23 15:10 BMI result Body Mass Index 28.3 Tobacco/Smoking Status: Tobacco use Status Tobacco use date assessed 02/14/23 02/14/23 15:12 Patient Tobacco Use Status Never used Tobacco 02/14/23 15:12 e-Cigarette/Vaping Use Never Used 02/14/23 15:12 Thrive Assessment: Date of Thrive Assessment Date Thrive assessed 02/10/23 02/14/23 15:12 Const General: healthy appearing, no acute distress, alert and awake Nutritional Appearance: well nourished Orientation/consciousness: oriented to person, oriented to place and oriented to time HENMT Ears: TM's normal bilaterally General nose exam: Normal nasal mucous membranes and turbinates present Eyes Conjunctivae: conjunctivae normal Sclerae: sclerae normal Pupils: Equal, round and reactive pupils present Neck Neck: Yes no lymphadenopathy and Yes no JVD Thyroid: Thyroid normal Carotids: no bruits Resp Effort & Inspection: normal respiratory effort and not tachypneic Auscultation: no crackles, no rales, no rhonchi and no wheezes Cardio Rate: regular rate Rhythm: regular rhythm Heart sounds: no murmurs and normal S1 and S2 GI Palpation (GI): Soft to palpation, nontender, no hepatomegaly and no splenomegaly Auscultation: normal bowel sounds Skin General skin exam: no rashes or lesions noted and dry skin Neuro General: oriented to person, oriented to place and oriented to time Cranial nerves: Yes Equal, round and reactive pupils present Speech: No Abnormal speech present Gait exam (Neuro): Normal gait present Motor exam (neuro): no tremor noted Extrem Right upper extremity: full ROM Left upper extremity: full ROM Right lower extremity: full ROM; no edema Left lower extremity: full ROM; no edema Psych Mental Status: mental status grossly normal Speech and movement: Normal speech and movement present Affect: normal affect Attitude: cooperative Thought process: Normal thought process present Assessment and Plan Assessment & Plan (1) Diabetes mellitus type 1: Comment: DKA April 2018, Dr. Salcedo Code(s): E10.9 - Type 1 diabetes mellitus without complications Qualifiers: Diabetes mellitus complication status: with hyperglycemia Qualified Code(s): E10.65 - Type 1 diabetes mellitus with hyperglycemia Plan: recent episodes of hyperglycemia. We long term staff reports blood sugars have been somewhat erratic. 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 Will increase her long-acting insulin from 12 to 18 units daily for better basal blood sugar control. Advised to follow-up with polysomnograph tech (2) JOSE (acute kidney injury): Code(s): N17.9 - Acute kidney failure, unspecified Plan: patient recently seen at the ER for acute kidney injury in the setting of hyperglycemia and dehydration. IV fluids corrected the problem. 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 creatinine has stable now though nephrology referral can be considered as he continues to have protein in urine. Will send for microalbuminuria before upcoming PE Orders: Orders Microalbumin, Random (w Creat) 02/14/23 E10.65 - Type 1 diabetes mellitus with hyperglycemia Basic Metabolic Panel 02/14/23 E10.65 - Type 1 diabetes mellitus with hyperglycemia Medications: Changed From insulin glargine (Lantus Solostar U-100 Insulin) 12 units subcut BEDTIME 65 - Type 1 diabetes mellitus with hyperglycemia To insulin glargine (Lantus Solostar U-100 Insulin) 18 units subcut BEDTIME - Type 1 diabetes mellitus with hyperglycemia Coding Level of Care Code Est Pt Level 3 (77059) Diagnoses Diabetes mellitus type 1 E1065 Diabetes mellitus complication status: with hyperglycemia JOSE (acute kidney injury) N17.9
== END 2023-02-14 15:39 | disposition home or self-care (01) ==
PROVIDERS: PCP Internal Medicine; Visit Provider Physician Assistant
DX: E10.65 Type 1 diabetes mellitus with hyperglycemia (principal); N17.9 Acute kidney failure, unspecified
CPT/HCPCS: 99213

== ENCOUNTER 2023-02-14 15:43 | Outpatient (REF) | payer MEDICARE, MEDICAID, SELFPAY ==
[2023-02-14 18:00] LABS: Anion Gap 14 (12-20); Blood Urea Nitrogen 29 mg/dL (9-16); Calcium 8.4 mg/dL (8.4-10.2); Carbon Dioxide 24 mmol/L (22-29); Chloride 95 mmol/L (96-108); Estimated Glomerular Filt Rate 44; Glucose Random 377 mg/dL (60-115); Sodium 128 mmol/L (135-145)
[2023-02-14 18:00] LABS: Creatinine Urine 19.37 mg/dL
== END 2023-02-14 15:44 | disposition home or self-care (01) ==
LOC: HO.LAB 15:43
PROVIDERS: Physician Assistant; PCP Internal Medicine; Visit Provider Internal Medicine
DX: E10.65 Type 1 diabetes mellitus with hyperglycemia (principal)
CPT/HCPCS: 36415; 80048; 82043

== ENCOUNTER 2023-03-06 10:55 | Outpatient (AMB) | payer MEDICARE, MEDICAID, SELFPAY ==
[2023-03-06 11:06] VITALS: BP 134/70; PULSE 65; O2SAT 97; BMI 27.4
--- NOTE | 2023-03-06 11:06 | MHC.PC.OV ---
Vital Signs 03/06/23 11:06 Height 4 ft 7.24 in Weight 53.977 kg BMI 27.4 BP 134/70 Blood Pressure Location Lt brachial Position Sitting Pulse 65 Pulse Source Pulse Oximeter Pulse Oximetry (%) 97 Oxygen Delivery Method Room Air Intake Visit Reasons: PE Allergies Sulfa (Sulfonamide Antibiotics) [SULFA(SULFONAMIDE ANTIBIOTICS)] Allergy (Intermediate, Verified 03/06/23 11:06) ITCHING Medication List - Last Reconciled 03/06/23 by Boris Mcgowan MD arformoterol 2 mL inhalation BID ascorbic acid (vitamin C) (Vitamin C) 500 mg PO DAILY aspirin 81 mg PO DAILY azithromycin 250 mg PO MOWEFR cetirizine 10 mg PO DAILY cholecalciferol (vitamin D3) (Vitamin D3) 25 mcg PO DAILY ciclopirox 0.77% 1 appl topical BID ciclopirox 0.77% 1 appl topical BID citalopram 10 mg PO DAILY famotidine (Pepcid AC) 10 mg PO BID ferrous sulfate 325 mg PO DAILY folic acid 0.8 mg PO DAILY guar gum 1 tbsp PO DAILY insulin glargine (Lantus Solostar U-100 Insulin) 18 units subcut BEDTIME insulin lispro (Humalog KwikPen (U-100) Insulin) 1 sliding scale dose See Protocol subcut TIDAC ipratropium-albuterol 0.5 mg-3 mg(2.5 mg base)/3 mL 3 mL inhalation BID PRN levothyroxine 100 mcg PO DAILY@0600 lisinopril 5 mg PO DAILY lorazepam (Ativan) 0.5 mg PO BEDTIME PRN metoprolol succinate ER 25 mg See Protocol PO DAILY sennosides-docusate sodium 8.6-50 mg (Stool Softener-Laxative) 2 tabs PO BEDTIME simvastatin 10 mg PO BEDTIME tamsulosin 0.8 mg PO DAILY@1700 zinc oxide-cod liver oil 40 % (Desitin) 1 appl topical DAILY Tobacco use date assessed: 02/14/23 Dental Screening Dental Screen Date: 03/06/23 Did you have a dental visit in the last 12 months?: Yes Did you have a dental problem in the last 6 months where you did not have access to dental care?: No Was dental information given to patient?: Patient has dentist HPI PE HPI Details 42-year-old overweight male with Down syndrome having diabetes mellitus type 1 hypothyroidism BPH GERD hypercholesterolemia renal insufficiency, idiopathic pulmonary fibrosis hypertension and anemia last seen in November 2022. Patient is here for physical exam. Review of the notes in 02/15/2023 was seen by the nurse practitioner for hospital discharge for acute kidney injury and hypoglycemia [facility] Medical History (Updated 03/06/23 @ 11:52 by Boris Mcgowan MD) Anxiety and depression Ascites BPH (benign prostatic hyperplasia) Cellulitis Constipation Diabetes mellitus type 1 Down syndrome GERD (gastroesophageal reflux disease) Hypercholesterolemia Hypothyroid Mental and behavioral problem Pericardial effusion Pseudoseizures Renal insufficiency Urethral meatal stenosis Surgical History Hx of cataract surgery Family History Father Medical history unknown Mother Medical history unknown Maternal Grandfather Prostate cancer Social History Household Members: None Household Members Other:: other residents and staff Housing: Other Housing Other:: assisted Alcohol intake: never Patient Tobacco Use Status: Never used Tobacco e-Cigarette/Vaping Use: Never Used Second Hand Smoke Exposure: No service: No Current occupational status: disabled Cognitive needs: No Hearing needs: No Vision needs: No Questionnaire PHQ-9 Over the last 2 weeks, how often have you been bothered by any of the following problems? 1. Little interest or pleasure in doing things: more than half the days 2. Feeling down, depressed, or hopeless: several days 3. Trouble falling or staying asleep, or sleeping too much: nearly every day 4. Feeling tired or having little energy: not at all 5. Poor appetite or overeating: not at all 6. Feeling bad about yourself - or that you are a failure or have let yourself or your family down: several days 7. Trouble concentrating on things, such as reading the newspaper or watching television: several days 8. Moving or speaking so slowly that other people could have noticed. Or the opposite - being so fidgety or restless that you have been moving around a lot more than usual: not at all 9. Thoughts that you would be better off or of hurting yourself in some way: not at all Total score: 8 Depression Screening Interpretation: Negative 95050 - PHQ-9 Billing: Yes Source: Developed by Drs. Rhys Carvalho, Sundeep Rodriguez and colleagues, with an educational odilon from [employer]. Thrive Questionnaire Date Thrive assessed: 02/10/23 AUDIT C Alcohol Use Questionnaire (AUDIT-C) 1. How often do you have a drink containing alcohol?: Never 3. How often do you have six or more drinks on one occasion?: Never Total Score: 0 Score Reviewed/Action Taken: No GAGE-7 AMB Questionnaire GAGE-7 Date GAGE - 7 assessed: 08/31/22 Source: Developed by Drs. Rhys Carvalho, Sundeep Rodriguez and colleagues, with an educational odilon from [employer]. Review of Systems Const Denies poor appetite and Denies weakness Eyes Denies no additional complaints ENT Reports Normal hearing present, Denies dizziness, Denies nasal congestion, Denies tinnitus and Denies sore throat Card Denies chest pain, Denies syncope, Denies rapid heart rate and Denies dyspnea Resp Denies cough and Denies dyspnea GI Denies change in stool character, Reports constipation, Denies diarrhea, Denies nausea and Denies vomiting Denies dysuria and Denies urinary frequency Neuro Reports Normal hearing present, Denies confusion, Denies dizziness, Denies syncope and Denies weakness Psych Denies confusion Physical exam (Primary Care) Vital Signs: Last Vital Signs Pulse 65 03/06/23 11:06 BP 134/70 03/06/23 11:06 Pulse Ox 97 03/06/23 11:06 Oxygen Delivery Method Room Air 03/06/23 11:06 BMI result Body Mass Index 27.4 Tobacco/Smoking Status: Tobacco use Status Tobacco use date assessed 02/14/23 03/06/23 11:07 Patient Tobacco Use Status Never used Tobacco 03/06/23 11:07 e-Cigarette/Vaping Use Never Used 03/06/23 11:07 PHQ-9: PHQ-9 Score PHQ-9: Total score 8 03/06/23 12:32 Depression Screening Interpretation: Negative Thrive Assessment: Date of Thrive Assessment Date Thrive assessed 02/10/23 03/06/23 11:07 Const General: No confusion Orientation/consciousness: No confusion HENMT Head: Yes normocephalic Ears: external ears normal and TM's normal bilaterally Face and sinus: Yes normal facial exam Mouth: moist mucous membranes Throat: Yes tonsils normal Eyes Conjunctivae: conjunctivae normal Pupils: Equal, round and reactive pupils present and Pupil accommodation reflex normal Direct Ophthalmoscopy: normal light reflex Neck Neck: No lymphadenopathy Thyroid: Thyroid normal Chest Chest palpation & inspection: normal inspection of the chest Resp Effort & Inspection: normal respiratory effort and no audible wheezes Auscultation: clear to auscultation bilaterally, no crackles, no wheezes and lung sounds not diminished Cardio Other: pedal pulse N Rate: regular rate Rhythm: regular rhythm Peripheral pulses: radial pulses present and dorsalis pedis present GI Palpation (GI): no masses Auscultation: normal bowel sounds and normoactive bowel sounds Rectal Exam - Male: Yes deferred Male General Exam: Yes normal external exam Skin General skin exam: no rashes or lesions noted Rashes: no rashes Neuro General: No confusion Cranial nerves: Yes Equal, round and reactive pupils present and Yes Normal hearing present Cognition (Neuro): normal cognition Gait exam (Neuro): Normal gait present Motor exam (neuro): 5/5 motor strength present throughout Deep tendon reflexes (DTR's): Right brachioradialis reflex intensity grade: 2+, Left brachioradialis reflex intensity grade: 2+, Right patellar reflex intensity grade: 2+ and Left patellar reflex intensity grade: 2+ Extrem General: No edema Results AMB Hemoglobin A1c AMB Hemoglobin A1c 10.4 % Last Edit by Vijaya Vegas CMA on 03/06/23 11:30 AMB Urinalysis, Automated UA Leukoctes 0 Allyssa/uL Last Edit by Vijaya Vegas CMA on 03/06/23 12:39 UA Nitrite Negative Last Edit by Vijaya Vegas CMA on 03/06/23 12:39 UA Urobilinogen 0.2 mg/dL Last Edit by Vijaya Vegas CMA on 03/06/23 12:39 UA Protein 100 mg/dL Last Edit by Vijaya Vegas CMA on 03/06/23 12:39 UA pH 6.0 Last Edit by Vijaya Vegas CMA on 03/06/23 12:39 UA Blood 0 Philippe/uL Last Edit by Vijaya Vegas CMA on 03/06/23 12:39 UA Specific Barnard 1.020 Last Edit by Vijaya Vegas CMA on 03/06/23 12:39 UA Ketone Negative Last Edit by Vijaya Vegas CMA on 03/06/23 12:39 UA Bilirubin 0 mg/dL Last Edit by Vijaya Vegas CMA on 03/06/23 12:39 UA Glucose 1000 mg/dL Last Edit by Vijaya Vegas CMA on 03/06/23 12:39 Immunizations tetanus-diphtheria toxoids-Td Performing Provider: Boris Mcgowan MD Administered by: Vijaya Vegas CMA on 03/06/23 12:10 Dose Route Admin Location Lot Number Expiration Date NDC 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 funds Results Reviewed Results Reviewed: Laboratory Last Values Hgb A1c (Clinic) 10.4 % (4.0-6.0) H 03/06/23 11:07 Assessment and Plan Assessment & Plan (1) Annual physical exam: Code(s): Z00.00 - Encounter for general adult medical examination without abnormal findings (2) Diabetes mellitus type 1: Comment: DKA April 2018, Dr. Salcedo Code(s): E10.9 - Type 1 diabetes mellitus without complications Qualifiers: Diabetes mellitus complication status: with hyperglycemia Qualified Code(s): E10.65 - Type 1 diabetes mellitus with hyperglycemia Plan: Decrease the amount of carbohydrate intake, pasta, bread, rice and potatoes are all sugar and that is aside from all the sweet stuff, remember that fruits are good but they are Sweet also. Patient is presently on insulin Lantus at 18 units and Humalog sliding scale (3) Hypertension: Code(s): I10 - Essential (primary) hypertension Plan: Continue with blood pressure medication. Decrease salt intake and exercise patient is taking metoprolol 25 mg once a day lisinopril 5 mg once a day (4) Overweight (BMI 25.0-29.9): Code(s): E66.3 - Overweight Plan: Diet and exercise (5) IPF (idiopathic pulmonary fibrosis): Code(s): J84.112 - Idiopathic pulmonary fibrosis Plan: Continue with inhalers as needed (6) Hypercholesterolemia: Code(s): E78.00 - Pure hypercholesterolemia, unspecified Plan: Avoid fried foods, chicken skin, eggs, butter margarine, pastries and meat. Be it pork or beef they have a lot of cholesterol Alva last blood work patient is taking simvastatin 10 mg once a day (7) GERD (gastroesophageal reflux disease): Code(s): K21.9 - Gastro-esophageal reflux disease without esophagitis Qualifiers: Esophagitis presence: without esophagitis Qualified Code(s): K21.9 - Gastro-esophageal reflux disease without esophagitis Plan: Avoid the foods that causes that usually spicy foods, tomato products, juices, coffee, soda and foods that your sensitive to. After eating do not lie down, allow 3-4 hours before in lie down. And keep the head of bed above 30 degrees to avoid the acid from going up. (8) BPH (benign prostatic hyperplasia): Code(s): N40.0 - Benign prostatic hyperplasia without lower urinary tract symptoms Qualifiers: Lower urinary tract symptom detail: urinary frequency Lower urinary tract symptom presence: symptoms present Qualified Code(s): N40.1 - Benign prostatic hyperplasia with lower urinary tract symptoms; R35.0 - Frequency of micturition Plan: Continue with tamsulosin (9) Hypothyroid: Code(s): E03.9 - Hypothyroidism, unspecified Qualifiers: Hypothyroidism type: acquired Qualified Code(s): E03.9 - Hypothyroidism, unspecified Plan: Continue with thyroid medication request for blood work done (10) Mental and behavioral problem: Code(s): F48.9 - Nonpsychotic mental disorder, unspecified; F69 - Unspecified disorder of adult personality and behavior Plan: Continue to follow-up with Psychiatry (11) Down syndrome: Code(s): Q90.9 - Down syndrome, unspecified (12) Dysuria: Code(s): R30.0 - Dysuria Orders: Orders Vitamin B12 and Folate Today E10.65 - Type 1 diabetes mellitus with hyperglycemia Comprehensive Met. Panel Today E10.65 - Type 1 diabetes mellitus with hyperglycemia Ferritin Today E10.65 - Type 1 diabetes mellitus with hyperglycemia IRON PROFILE Today E10.65 - Type 1 diabetes mellitus with hyperglycemia Lipid Panel Today E10.65 - Type 1 diabetes mellitus with hyperglycemia, E78.00 - Pure hypercholesterolemia, unspecified Free T4 (Free Thyroxine) Today E10.65 - Type 1 diabetes mellitus with hyperglycemia Thyroid Stimulating Hormone Today E10.65 - Type 1 diabetes mellitus with hyperglycemia Creatinine Urine Today E10.65 - Type 1 diabetes mellitus with hyperglycemia, E11.65 - Type 2 diabetes mellitus with hyperglycemia Microalbumin, Random (w Creat) Today E10.65 - Type 1 diabetes mellitus with hyperglycemia, E11.65 - Type 2 diabetes mellitus with hyperglycemia Complete Blood Count Auto Diff Today E10.65 - Type 1 diabetes mellitus with hyperglycemia Reticulocyte Count Today E10.65 - Type 1 diabetes mellitus with hyperglycemia Td State Immunization Today Z23 - Encounter for immunization AMB Hemoglobin A1c Today Z13.9 - Encounter for screening, unspecified AMB Urinalysis Automated Today R30.0 - Dysuria, Z13.9 - Encounter for screening, unspecified Medications: New ferrous sulfate 325 mg PO DAILY 30 tabs 12RF E10.65 - Type 1 diabetes mellitus with hyperglycemia folic acid 0.8 mg PO DAILY 90 tabs 3RF E10.65 - Type 1 diabetes mellitus with hyperglycemia metoprolol succinate ER 25 mg See Protocol PO DAILY 90 tabs 3RF E10.65 - Type 1 diabetes mellitus with hyperglycemia cholecalciferol (vitamin D3) (Vitamin D3) 25 mcg PO DAILY 30 tabs 11RF E10.65 - Type 1 diabetes mellitus with hyperglycemia simvastatin 10 mg PO BEDTIME 90 tabs 3RF E10.65 - Type 1 diabetes mellitus with hyperglycemia sennosides-docusate sodium 8.6-50 mg (Stool Softener-Laxative) 2 tabs PO BEDTIME 180 tabs 3RF E10.65 - Type 1 diabetes mellitus with hyperglycemia acetaminophen (Tylenol) 650 mg (2 x 325 mg) PO Q6H PRN 30 tabs 5RF pain E10.65 - Type 1 diabetes mellitus with hyperglycemia Coding Level of Care Code Est Pt Prev Care 40-64y(10307) Diagnoses Annual physical exam Z00.00 Diabetes mellitus type 1 E10.65 Diabetes mellitus complication status: with hyperglycemia Hypertension I10 Overweight (BMI 25.0-29.9) E66.3 IPF (idiopathic pulmonary fibrosis) J84.112 Hypercholesterolemia E78.00 GERD (gastroesophageal reflux disease) K21.9 Esophagitis presence: without esophagitis BPH (benign prostatic hyperplasia) N40.1; R35.0 Lower urinary tract symptom detail: urinary frequency Lower urinary tract symptom presence: symptoms present Hypothyroid E03.9 Hypothyroidism type: acquired Mental and behavioral problem F48.9; F69 Down syndrome Q90.9 Dysuria R30.0
== END 2023-03-06 12:20 | disposition home or self-care (01) ==
PROVIDERS: Visit Provider Internal Medicine
DX: R30.0 Dysuria (principal); Z23 Encounter for immunization
CPT/HCPCS: 81003; 83036; 90471; 90714; 99396

== ENCOUNTER 2023-04-03 09:50 | Outpatient (AMB) | payer MEDICARE, MEDICAID, SELFPAY ==
--- NOTE | 2023-04-03 09:54 | MHC.OFFVIS ---
Intake Vital Signs 04/03/23 09:55 Height 4 ft 7.24 in Weight 119 lb 0.794 oz BMI 27.4 BP 116/70 Blood Pressure Location Lt brachial Position Sitting Pulse 66 Intake Visit Reasons: 1 year follow up Intake Note: Bernard presents in the office as a 1 year follow up. CC: States that he has a pain in the RUQ and sometimes there feels like there is a lump formed. Paper Machine Tender Required: No Allergies Sulfa (Sulfonamide Antibiotics) [SULFA(SULFONAMIDE ANTIBIOTICS)] Allergy (Intermediate, Verified 04/03/23 09:57) ITCHING HPI 1 year follow up HPI Details LAST VISIT Constipation Continue current therapy with Benefiber and docusate sodium. Patient is moving his bowels every day without any issues. No melena, hematochezia, unintentional weight loss or ribbon like stools. Will see patient in 1 year, sooner if he will have any GI concerning symptoms. Patient and staff are agreeable to plan of care and verbalizes understanding of instructions. They were given the opportunity to ask questions and all questions answered. TODAY'S VISIT Patient is here today for follow-up. Patient is accompanied by his snaker tractor driver. Patient is moving his bowels, however he does not empty them completely. Occasional right upper quadrant discomfort. Patient is taking Benefiber and senna/Colace combination. Denies melena, hematochezia, unintentional weight loss or ribbon like stools. Patient denies dyspepsia, dysphagia or odynophagia. Patient has good appetite he. Denies nausea or vomiting. REPLACED BY [facility] Medical History (Updated 04/03/23 @ 18:04 by Alize Mcdonald [facility]) Cellulitis Constipation Ascites Pericardial effusion Urethral meatal stenosis Mental and behavioral problem Renal insufficiency Hypercholesterolemia Down syndrome GERD (gastroesophageal reflux disease) BPH (benign prostatic hyperplasia) Hypothyroid Anxiety and depression Pseudoseizures Diabetes mellitus type 1 Surgical History Hx of cataract surgery Family History Father Medical history unknown Mother Medical history unknown Maternal Grandfather Prostate cancer Social History Household Members: None Household Members Other:: other residents and staff Housing: Other Housing Other:: long term Alcohol intake: never Patient Tobacco Use Status: Never used Tobacco e-Cigarette/Vaping Use: Never Used Second Hand Smoke Exposure: No service: No Current occupational status: disabled Cognitive needs: No Hearing needs: No Vision needs: No Review of Systems Const Denies weight gain and Denies weight loss ENT Reports no additional complaints, Denies dysphagia and Denies odynophagia Card Reports no additional complaints Resp Reports no additional complaints GI Denies abdominal pain, Denies belching, Denies melena, Denies bloating, Denies change in bowel habits, Denies dysphagia, Denies excessive flatus, Denies dyspepsia, Denies heartburn, Denies diarrhea, Denies loose stools, Denies nausea, Denies odynophagia and Denies vomiting Reports no additional complaints Musc Reports no additional complaints Neuro Reports no additional complaints Psych Reports no additional complaints Endo Reports no additional complaints Physical Exam Vital Signs: Last Vital Signs Pulse 66 04/03/23 09:55 BP 116/70 04/03/23 09:55 BMI result Body Mass Index 27.4 Const General: healthy appearing, no acute distress and well developed Nutritional Appearance: well nourished Orientation/consciousness: oriented to person and oriented to place HEENT Head: Yes normal to inspection, Yes normocephalic and Yes atraumatic Face and sinus: Yes normal facial exam Mouth: Normal oral and palatal mucosa present Throat: Yes posterior oropharynx normal, Yes tonsils normal and Yes uvula midline Eyes General: appearance normal, both eyes and all related structures Neck Neck: Yes normal visual inspection, Yes full ROM and Yes trachea midline Thyroid: Thyroid normal Resp Effort & Inspection: normal respiratory effort, able to speak in complete sentences, no tracheal deviation and symmetric chest movement Auscultation: clear to auscultation bilaterally Cardio Rate: regular rate Heart sounds: S1 normal heart sound present and S2 normal heart sound present GI Inspection: Yes normal to inspection and No distended Palpation (GI): Soft to palpation, not firm, nontender and No hepatosplenomegaly present Auscultation: normal bowel sounds General: Yes no CVA tenderness Back/Spine/Pelvis Back: no CVA tenderness Skin General skin exam: elasticity normal, turgor normal and dry skin Neuro General: oriented to person and oriented to place Assessment & Plan Assessment & Plan (1) Constipation: Code(s): K59.00 - Constipation, unspecified Qualifiers: Constipation type: slow transit constipation Qualified Code(s): K59.01 - Slow transit constipation Plan: Patient will stop Benefiber. Will start him on MiraLax. Continue Colace/Senokot combo. Patient was encouraged to increase fluid intake and activity to promote better bowel motility (2) RUQ abdominal pain: Code(s): R10.11 - Right upper quadrant pain Plan: Patient reports right upper quadrant discomfort occasionally. Negative High sign. Patient could be constipated, gas trapping pain in hepatic flexure. I will see patient in the for months. Both patient and the case management rn are agreeable to plan of care and verbalizes understanding of instructions. They were given the opportunity to ask questions and all questions answered. Thank you for allowing me to participate in his care Orders: Orders Lipase Today R10.9 - Unspecified abdominal pain Liver Panel Today R10.9 - Unspecified abdominal pain Pancreatic Elastase-1 Today R10.9 - Unspecified abdominal pain Medications: New polyethylene glycol 3350 (Miralax) 17 grams PO DAILY 510 grams 2RF Coding Level of Care Code Est Pt Level 3 (33451) Diagnoses Slow transit constipation K59.01 Constipation type: slow transit constipation RUQ abdominal pain R10.11 Time Spent (min) 30 Comment In 20 minutes spent with patient and additional 10 minutes spent reviewing his records
[2023-04-03 09:55] VITALS: BP 116/70; PULSE 66; BMI 27.4
== END 2023-04-03 10:27 | disposition home or self-care (01) ==
PROVIDERS: PCP Internal Medicine; Visit Provider Nurse Practitioner Family
DX: K59.01 Slow transit constipation (principal); R10.11 Right upper quadrant pain
CPT/HCPCS: 99213

== ENCOUNTER 2023-04-03 09:50 | Outpatient (REF) | payer MEDICARE, MEDICAID, SELFPAY ==
[2023-04-03 10:47] LABS: MANUAL DIFF FLAG NO
[2023-04-03 11:00] LABS: Basophils Absolute Auto 0.1 X10*3/uL (0.0-0.2); Basophils Percent Auto 1.7 % (0-2); Eosinophils Absolute Auto 0.3 X10*3/uL (0.0-0.4); Eosinophils Percent Auto 5.7 % (0-4); Hematocrit 36.7 % (42.0-52.0); Hemoglobin 12.2 g/dl (14.0-18.0); Imm Gran Abs Auto 0.02 X10*3/uL (0.00-0.03); Imm Gran Pct Auto 0.4 % (0.0-0.4); Immature Retic Fraction 11.6 % (2.3-13.4); Lymphocytes Percent Auto 22.1 % (20-40); Mean Corpuscular HGB Conc 33.2 g/dl (31.0-36.0); Mean Corpuscular Hemoglobin 30.8 pg (27.0-33.0); Mean Corpuscular Volume 92.7 fL (80.0-98.0); Mean Platelet Volume 9.3 fL (9.4-12.4); Monocytes Absolute Auto 0.4 X10*3/uL (0.1-1.2); Monocytes Percent Auto 8.1 % (2-11); Neutrophils Absolute Auto 2.8 x10*3/uL (2.0-8.3); Platelet Count 357 X10*3/uL (160-400); Red Blood Count 3.96 X10*6/uL (4.60-5.80); Red Cell Distribution Width 13.3 % (11.0-16.0); Retic HGB Equivalent 35.3 pg (30.0-35.0); Reticulocyte Percent 2.3 % (0.5-1.8); White Blood Count 4.6 X10*3/uL (4.8-10.8)
[2023-04-03 12:21] LABS: Ferritin 458 ng/mL (20-250); Free T4 (Free Thyroxine) 1.03 ng/dL (0.71-1.85)
[2023-04-03 12:22] LABS: Thyroid Stimulating Hormone 2.94 uIU/mL (0.32-4.0)
[2023-04-03 12:23] LABS: Alanine Aminotransferase 17 U/L (0-40); Albumin Level 2.8 g/dL (3.5-5.0); Alkaline Phosphatase 76 U/L (39-117); Anion Gap 9 (12-20); Aspartate Amino Transferase 14 U/L (5-37); Bilirubin Direct < 0.2 mg/dL (0.0-0.5); Bilirubin Total 0.1 mg/dL (0.0-1.0); Blood Urea Nitrogen 43 mg/dL (9-16); Calcium 8.7 mg/dL (8.4-10.2); Carbon Dioxide 30 mmol/L (22-29); Chloride 105 mmol/L (96-108); Estimated Glomerular Filt Rate 50; Glucose Random 155 mg/dL (60-115); Iron 84 mcg/dL (45-160); Lipase 11 U/L (8-78); Percent Iron Saturation 44 % (15-50); Potassium 5.5 mmol/L (3.3-5.1); Sodium 138 mmol/L (135-145); Total Iron Binding Capacity 190 mcg/dL (228-428); Total Protein 6.1 g/dL (6.5-8.0); Unsaturated Iron Binding 106 ug/dL
[2023-04-03 12:35] LABS: Folate > 20.0 ng/mL (> or = 4.0); Vitamin B12 538 pg/mL (200-900)
== END 2023-04-03 09:51 | disposition home or self-care (01) ==
LOC: HO.LAB 09:50
PROVIDERS: PCP Internal Medicine; Visit Provider Nurse Practitioner Family
DX: K59.01 Slow transit constipation (principal); R10.11 Right upper quadrant pain; E10.65 Type 1 diabetes mellitus with hyperglycemia
CPT/HCPCS: 36415; 80053; 80076; 82607; 82728; 82746; 83540; 83690; 84439; 84443; 85025; 85045; 99212

== ENCOUNTER 2023-04-04 11:02 | Outpatient (REF) | payer MEDICARE, MEDICAID, SELFPAY ==
[2023-04-04 12:52] LABS: Creatinine Urine 76.52 mg/dL
[2023-04-04 13:04] LABS: Microalbum/Creatinine Ratio Ur 2407.2 ug/mg cr (<30)
[2023-04-12 18:23] LABS: Pancreatic Elastase-1 34 mcg/g
== END 2023-04-04 11:03 | disposition home or self-care (01) ==
LOC: HO.LNP 11:02
PROVIDERS: Nurse Practitioner Family; Visit Provider Internal Medicine
DX: R10.9 Unspecified abdominal pain (principal); E10.65 Type 1 diabetes mellitus with hyperglycemia
CPT/HCPCS: 82043; 82570; 82656

== ENCOUNTER 2023-04-05 09:00 | Outpatient (AMB) | payer MEDICARE, MEDICAID, SELFPAY ==
--- NOTE | 2023-04-05 09:03 | A.OFFVIS_ITS ---
Intake Intake Visit Reasons: 6m/PVR Intake Note: Patient is present for PVR Urology Med: Tamsulosin Antibiotic Allergy: Sulfa Antibiotics Blood Thinner: Aspirin Pharmacy: [facility] PVR:124 Allergies Sulfa (Sulfonamide Antibiotics) [SULFA(SULFONAMIDE ANTIBIOTICS)] Allergy (Intermediate, Verified 04/05/23 09:13) ITCHING HPI HPI Comments History of Present Illness Details Bernard Navarro is a very pleasant male. They are a patient of Dr Mcgowan. Background of down syndrome. He is seen for the following conditions - lower urinary tract symptoms - incomplete bladder emptying - background down syndrome with progress heath difficult diabetes last HbA1c 01/11 9.7 PVR today 125 3+ glucose Morning sugars 400 Proteinuria Has supervisor glycerin Encourage prompted voiding Q 3-4 hours Continue tamsulosin Balanitis/Phimosis: He presents with a complaint of meatal stenosis. The problem has been treated in 2012 as result of catheterization. Had remained with an indwelling catheter for a number of years. Removed when he moved to a shared home. Associated problems include diabetes Yes Could use steroid cream if need be. At this point meatal area is functional. Lower Urinary Tract Symptoms: Current visit is for further evaluation of, lower urinary tract symptoms, predominate obstructive symptoms. Current treatment includes medication, alpha dean - tamsulosin Prostate Symptom Score Mild (0-8), Bother 2. Symptoms include incomplete emptying, weak stream, nocturia (>2), and are improving 04/09 , weak stream, and are improving. Prior Prostate Score moderate. Testing at next visit will include bladder scan, Prostate Symptom Score. Treatment plan continue with current medications [facility] Medical History Cellulitis Constipation Ascites Pericardial effusion Urethral meatal stenosis Mental and behavioral problem Renal insufficiency Hypercholesterolemia Down syndrome GERD (gastroesophageal reflux disease) BPH (benign prostatic hyperplasia) Hypothyroid Anxiety and depression Pseudoseizures Diabetes mellitus type 1 Surgical History Hx of cataract surgery Family History Father Medical history unknown Mother Medical history unknown Maternal Grandfather Prostate cancer Social History Household Members: None Household Members Other:: other residents and staff Housing: Other Housing Other:: assisted Alcohol intake: never Patient Tobacco Use Status: Never used Tobacco e-Cigarette/Vaping Use: Never Used Second Hand Smoke Exposure: No service: No Current occupational status: disabled Cognitive needs: No Hearing needs: No Vision needs: No Review of Systems Const Denies chills and Denies fever(s) Card Reports no additional complaints and Denies syncope Resp Denies cough GI Denies abdominal pain and Denies heartburn Reports as per HPI and Denies change in libido Neuro Denies syncope Psych Denies change in libido Endo Denies change in libido Physical Exam Const General: cooperative, healthy appearing, comfortable and no acute distress Orientation/consciousness: patient oriented x3 HEENT Face and sinus: Yes normal facial exam Mouth: moist mucous membranes Neck Neck: Yes normal visual inspection, Yes full ROM and Yes trachea midline Chest Chest palpation & inspection: normal inspection of the chest Resp Effort & Inspection: normal respiratory effort, able to speak in complete sentences and no respiratory distress GI Inspection: Yes normal to inspection Back/Spine/Pelvis Cervical Spine: normal cervical lordosis Thoracic/Lumbar Spine: thoracic and lumbar spine normal to inspection Skin General skin exam: no rashes or lesions noted Neuro General: patient oriented x3, gait normal, tone normal and moves all extremities Extrem General: Yes normal to inspection and Yes capillary refill normal Office Procedures Post Void Residual Post Residual Void Post Void Residual (PVR): 124 [id number]-[id number] Void Residual by ultrasound Results AMB Urinalysis, Automated UA Leukoctes 0 Allyssa/uL Last Edit by NING Michael on 04/05/23 09:15 UA Nitrite Negative Last Edit by NING Michael on 04/05/23 09:15 UA Urobilinogen 3.5 mg/dL Last Edit by NING Michael on 04/05/23 09:1 5 UA Protein 100 mg/dL Last Edit by NING Michael on 04/05/23 09:15 3..0 g/L Teodora Luna 04/05/23 09:15 UA pH 6.0 Last Edit by NING Michael on 04/05/23 09:15 UA Blood 0 Philippe/uL Last Edit by NING Michael on 04/05/23 09:15 UA Specific [place] 1.020 Last Edit by Teodora Luna, RMA on 04/05/23 09: 15 UA Ketone Negative Last Edit by Teodora Luna, RMA on 04/05/23 09:15 UA Bilirubin 0 mg/dL Last Edit by Teodora Luna, RMA on 04/05/23 09:15 UA Glucose 100 mg/dL Last Edit by Teodora Luna, A on 04/05/23 09:15 60 mmol/L Teodora Luna 04/05/23 09:15 Results Reviewed Results Reviewed: Laboratory Last Values Urine pH (Auto) 6.0 04/05/23 09:06 Specific [place] (Auto) 1.020 04/05/23 09:06 Urine Protein (Auto) 100 mg/dL 04/05/23 09:06 Glucose (UA)(Auto) 100 mg/dL 04/05/23 09:06 Urine Ketones (Auto) Negative 04/05/23 09:06 Urine Blood (Auto) 0 Philippe/uL 04/05/23 09:06 Urine Nitrite (Auto) Negative 04/05/23 09:06 Urine Bilirubin (Auto) 0 mg/dL 04/05/23 09:06 Urine Urobilinogen (Auto) 3.5 mg/dL 04/05/23 09:06 Leukocyte Esterase (Auto) 0 Allyssa/uL 04/05/23 09:06 Assessment & Plan Assessment & Plan (1) Dysuria: Code(s): R30.0 - Dysuria (2) Penile irritation: Code(s): N48.89 - Other specified disorders of penis (3) Diabetic neuropathy associated with diabetes mellitus due to underlying condition: Code(s): E08.40 - Diabetes mellitus due to underlying condition with diabetic neuropathy, unspecified (4) Hypotonic neurogenic bladder: Code(s): N31.9 - Neuromuscular dysfunction of bladder, unspecified Plan PVR 6 months Orders: Orders AMB Urinalysis Automated Today Z13.9 - Encounter for screening, unspecified AMB Post Void Residual by ultrasound Today N31.9 - Neuromuscular dysfunction of bladder, unspecified Medications: Changed From tamsulosin 0.8 mg PO DAILY@1700 To tamsulosin 0.8 mg (2 x 0.4 mg) PO DAILY@1700 90 days 180 caps 1RF Patient Instructions: Imaging studies, laboratory and physical exam results were discussed and reviewed in detail. No major barriers to patient understanding were identified. An opportunity to ask questions regarding the treatment plan was provided. All questions were answered. The patient expressed understanding and agreement with the above treatment plan. The patient is aware they should contact our office by phone for worsening of their current condition or the appearance of new urologic symptoms. Compliance is encouraged with any medications and followup testing that is ordered. It is a privilege to participate in the urologic care of your patient. If you have any questions or concerns regarding treatment for the above conditions, or other urologic issues, please do not hesitate to contact me. The office telephone contact is [phone]. This note is constructed using voice recognition software. While every effort has been made to ensure accuracy bottle feeder errors may have been included. Yours sincerely, Dr Timothy Ford MD, [facility] - Urology Providers of Expert, Compassionate Care for the Genitourinary System Coding Level of Care Code Est Pt Level 4 (32992) Diagnoses Dysuria R30.0 Penile irritation N48.89 Diabetic neuropathy associated with diabetes mellitus due to underlying condition E08.40 Hypotonic neurogenic bladder N31.9 CPT Codes Post Residual Void - PVR CPT Code: 13639-Xhnc Void Residual by ultrasound ([id number])
== END 2023-04-05 09:36 | disposition home or self-care (01) ==
PROVIDERS: PCP Internal Medicine; Visit Provider Urology
DX: R30.0 Dysuria (principal); N48.89 Other specified disorders of penis; E08.40 Diabetes mellitus due to underlying condition with diabetic neuropathy, unspecified; N31.9 Neuromuscular dysfunction of bladder, unspecified
CPT/HCPCS: 99213

== ENCOUNTER → 2023-04-05 09:00 | Outpatient (BNVA) | payer MEDICARE, MEDICAID, SELFPAY | PROVIDERS: Visit Provider Urology | DX: J84.112 Idiopathic pulmonary fibrosis (principal); R05.3 Chronic cough; R30.0 Dysuria; N48.89 Other specified disorders of penis; E08.40 Diabetes mellitus due to underlying condition with diabetic neuropathy, unspecified; N31.9 Neuromuscular dysfunction of bladder, unspecified | CPT/HCPCS: 51798; 81003; 99212 ==

== ENCOUNTER 2023-04-05 09:44 | Outpatient (AMB) | payer MEDICARE, MEDICAID, SELFPAY ==
[2023-04-05 09:46] VITALS: BP 104/62; PULSE 69; O2SAT 100; BMI 27.4
--- NOTE | 2023-04-05 09:46 | A.OFFVIS_ITS ---
Intake Vital Signs 04/05/23 09:46 Height 4 ft 7.24 in Weight 119 lb 0.794 oz BMI 27.4 BP 104/62 Blood Pressure Location Rt brachial Position Sitting Pulse 69 Pulse Source Doppler Pulse Oximetry (%) 100 Oxygen Delivery Method Room Air Intake Visit Reasons: cough Allergies Sulfa (Sulfonamide Antibiotics) [SULFA(SULFONAMIDE ANTIBIOTICS)] Allergy (Intermediate, Verified 04/05/23 09:49) ITCHING HPI cough HPI Details 42-year-old gentleman, lifetime nonsmoke r, with underlying history of Down syndrome followed for chronic cough and IPF. After the last office visit patient states that when he uses nebulized treatments he feels like his symptoms get worse. Though he denies an acute exacerbation at this time. [facility] Medical History Cellulitis Constipation Ascites Pericardial effusion Urethral meatal stenosis Mental and behavioral problem Renal insufficiency Hypercholesterolemia Down syndrome GERD (gastroesophageal reflux disease) BPH (benign prostatic hyperplasia) Hypothyroid Anxiety and depression Pseudoseizures Diabetes mellitus type 1 Surgical History Hx of cataract surgery Family History Father Medical history unknown Mother Medical history unknown Maternal Grandfather Prostate cancer Social History Household Members: None Household Members Other:: other residents and staff Housing: Other Housing Other:: [facility] Alcohol intake: never Patient Tobacco Use Status: Never used Tobacco e-Cigarette/Vaping Use: Never Used Second Hand Smoke Exposure: No service: No Current occupational status: disabled Cognitive needs: No Hearing needs: No Vision needs: No Review of Systems Const Denies daytime sleepiness, Denies excessive sweating, Denies fatigue, Denies fever(s), Denies lethargy, Denies malaise, Denies night sweats, Denies snoring and Denies weight loss Eyes Denies blurry vision and Denies itchy eyes ENT Denies nasal congestion, Denies post nasal drip, Denies sinus pain, Denies sinus pressure and Denies other ( Thrush) Card Denies chest pain, Denies pedal edema, Denies dyspnea, Denies orthopnea and Denies paroxysmal nocturnal dyspnea Resp Denies cough, Denies hemoptysis, Denies excessive phlegm production, Denies dyspnea, Denies snoring and Denies wheezing GI Denies abdominal pain and Denies heartburn Musc Denies myalgias, Denies arthralgias and Denies joint swelling Skin/Breast Denies rash Neuro Denies memory loss and Denies seizure-like activity Psych Denies abnormal sleep pattern, Denies anxiety and Denies memory loss Endo Denies excessive sweating, Denies fatigue and Denies heat intolerance Juan/Lymph Denies easy bruising Aller/Immun Denies itchy eyes, Denies seasonal rhinorrhea and Denies wheezing Physical Exam Vital Signs: Last Vital Signs Pulse 69 04/05/23 09:46 BP 104/62 04/05/23 09:46 Pulse Ox 100 04/05/23 09:46 Oxygen Delivery Method Room Air 04/05/23 09:46 BMI result Body Mass Index 27.4 Const General: no acute distress and alert Nutritional Appearance: not obese Orientation/consciousness: Other orientation findings ( oriented) HEENT Head: Yes atraumatic Eyes General: appearance normal, both eyes and all related structures Sclerae: sclerae normal EOM: EOMs intact bilaterally Neck Neck: Yes supple Lymphatic: no lymphadenopathy noted Resp Effort & Inspection: normal respiratory effort and no use of accessory muscles Auscultation: clear to auscultation bilaterally Cardio Rate: regular rate Rhythm: regular rhythm Heart sounds: no gallops, no murmurs and no rubs Skin General skin exam: other ( warm) Extrem General: No clubbing, No cyanosis and No edema Results AMB Urinalysis, Automated UA Leukoctes 0 Allyssa/uL Last Edit by NING Michael on 04/05/23 09:15 UA Nitrite Negative Last Edit by NING Michael on 04/05/23 09:15 UA Urobilinogen 3.5 mg/dL Last Edit by NING Michael on 04/05/23 09:1 5 UA Protein 100 mg/dL Last Edit by NING Michael on 04/05/23 09:15 3..0 g/L Teodora Luna 04/05/23 09:15 UA pH 6.0 Last Edit by NING Michael on 04/05/23 09:15 UA Blood 0 Philippe/uL Last Edit by Teodora Luna, A on 04/05/23 09:15 UA Specific [place] 1.020 Last Edit by Teodora Luna, A on 04/05/23 09: 15 UA Ketone Negative Last Edit by Teodora Luna, A on 04/05/23 09:15 UA Bilirubin 0 mg/dL Last Edit by Teodora Luna, A on 04/05/23 09:15 UA Glucose 100 mg/dL Last Edit by Teodora Luna, A on 04/05/23 09:15 60 mmol/L Teodora Luna 04/05/23 09:15 Assessment & Plan Assessment & Plan (1) Chronic cough: Code(s): R05 - Cough Plan: Now with poor tolerance of a nebulized medications. Will stop and reassess symptoms in 2 weeks. Continue on t.i.w. azithromycin. (2) IPF (idiopathic pulmonary fibrosis): Code(s): J84.112 - Idiopathic pulmonary fibrosis Plan: No recent exacerbations. Continue to follow-up clinically. Coding Level of Care Code Est Pt Level 4 (10806) Diagnoses Chronic cough R05 IPF (idiopathic pulmonary fibrosis) J84.112
== END 2023-04-05 10:02 | disposition home or self-care (01) ==
PROVIDERS: PCP Internal Medicine; Visit Provider Internal Medicine Pulmonary Disease
DX: R05.9 Cough, unspecified (principal); J84.112 Idiopathic pulmonary fibrosis
CPT/HCPCS: 99214

== ENCOUNTER 2023-04-23 09:23 | Outpatient (AMB) | payer MEDICARE, MEDICAID, SELFPAY ==
--- NOTE | 2023-04-23 09:27 | A.OFFVIS_ITS ---
Intake Vital Signs 04/23/23 09:28 Height 4 ft 7.4 in Weight 123 lb 7.342 oz BMI 28.3 BP 108/62 Blood Pressure Location Rt brachial Position Sitting Pulse 69 Pulse Source Doppler Pulse Oximetry (%) 99 Oxygen Delivery Method Room Air Intake Visit Reasons: Symptom check Allergies Sulfa (Sulfonamide Antibiotics) [SULFA(SULFONAMIDE ANTIBIOTICS)] Allergy (Intermediate, Verified 04/23/23 09:35) ITCHING HPI Symptom check HPI Details 42-year-old gentleman, lifetime nonsmoke r, with underlying history of Down syndrome followed for chronic cough and IPF. After the last office visit his nebulized regimen was discontinued per patient request. Today he returns for symptom check and states that his symptoms are still will controlled on TIW azithromycin. He denies any recent exacerbations. [facility] Medical History Cellulitis Constipation Ascites Pericardial effusion Urethral meatal stenosis Mental and behavioral problem Renal insufficiency Hypercholesterolemia Down syndrome GERD (gastroesophageal reflux disease) BPH (benign prostatic hyperplasia) Hypothyroid Anxiety and depression Pseudoseizures Diabetes mellitus type 1 Surgical History Hx of cataract surgery Family History Father Medical history unknown Mother Medical history unknown Maternal Grandfather Prostate cancer Social History Household Members: None Household Members Other:: other residents and staff Housing: Other Housing Other:: retirement Alcohol intake: never Patient Tobacco Use Status: Never used Tobacco e-Cigarette/Vaping Use: Never Used Second Hand Smoke Exposure: No service: No Current occupational status: disabled Cognitive needs: No Hearing needs: No Vision needs: No Review of Systems Const Denies daytime sleepiness, Denies excessive sweating, Denies fatigue, Denies fever(s), Denies lethargy, Denies malaise, Denies night sweats, Denies snoring and Denies weight loss Eyes Denies blurry vision and Denies itchy eyes ENT Denies nasal congestion, Denies post nasal drip, Denies sinus pain, Denies sinus pressure and Denies other ( Thrush) Card Denies chest pain, Denies pedal edema, Denies dyspnea, Denies orthopnea and Denies paroxysmal nocturnal dyspnea Resp Denies cough, Denies hemoptysis, Denies excessive phlegm production, Denies dyspnea, Denies snoring and Denies wheezing GI Denies abdominal pain and Denies heartburn Musc Denies myalgias, Denies arthralgias and Denies joint swelling Skin/Breast Denies rash Neuro Denies memory loss and Denies seizure-like activity Psych Denies abnormal sleep pattern, Denies anxiety and Denies memory loss Endo Denies excessive sweating, Denies fatigue and Denies heat intolerance Juan/Lymph Denies easy bruising Aller/Immun Denies itchy eyes, Denies seasonal rhinorrhea and Denies wheezing Physical Exam Vital Signs: Last Vital Signs Pulse 69 04/23/23 09:28 BP 108/62 04/23/23 09:28 Pulse Ox 99 04/23/23 09:28 Oxygen Delivery Method Room Air 04/23/23 09:28 BMI result Body Mass Index 28.3 Const General: no acute distress and alert Nutritional Appearance: not obese Orientation/consciousness: Other orientation findings ( oriented) HEENT Head: Yes atraumatic Eyes General: appearance normal, both eyes and all related structures Sclerae: sclerae normal EOM: EOMs intact bilaterally Neck Neck: Yes supple Lymphatic: no lymphadenopathy noted Resp Effort & Inspection: normal respiratory effort and no use of accessory muscles Auscultation: clear to auscultation bilaterally Cardio Rate: regular rate Rhythm: regular rhythm Heart sounds: no gallops, no murmurs and no rubs Skin General skin exam: other ( warm) Extrem General: No clubbing, No cyanosis and No edema Assessment & Plan Assessment & Plan (1) Cough: Code(s): R05.9 - Cough, unspecified Plan: Well controlled on TIW azithromycin. Continue current regimen. (2) IPF (idiopathic pulmonary fibrosis): Code(s): J84.112 - Idiopathic pulmonary fibrosis Plan: At this time essentially with no clinical symptoms. Continue to monitor. Coding Level of Care Code Est Pt Level 4 (12437) Diagnoses Cough R05.9 IPF (idiopathic pulmonary fibrosis) J84.112
[2023-04-23 09:28] VITALS: BP 108/62; PULSE 69; O2SAT 99; BMI 28.3
== END 2023-04-23 09:38 | disposition home or self-care (01) ==
PROVIDERS: PCP Internal Medicine; Visit Provider Internal Medicine Pulmonary Disease
DX: R05.9 Cough, unspecified (principal); J84.112 Idiopathic pulmonary fibrosis
CPT/HCPCS: 99214

== ENCOUNTER → 2023-04-23 09:23 | Outpatient (BNVA) | payer MEDICARE, MEDICAID, SELFPAY | PROVIDERS: PCP Internal Medicine; Visit Provider Internal Medicine Pulmonary Disease | DX: R05.3 Chronic cough (principal); J84.112 Idiopathic pulmonary fibrosis | CPT/HCPCS: 99212 ==

== ENCOUNTER 2023-07-31 14:04 | Outpatient (AMB) | payer MEDICARE, MEDICAID, SELFPAY ==
--- NOTE | 2023-07-31 14:11 | MHC.OFFVIS ---
Intake Vital Signs 07/31/23 14:12 Height 4 ft 7.4 in Weight 128 lb 15.527 oz BMI 29.5 BP 118/62 Blood Pressure Location Rt brachial Position Sitting Pulse 62 Pulse Source Doppler Pulse Oximetry (%) 96 Oxygen Delivery Method Room Air Intake Visit Reasons: cough, congestion Allergies Sulfa (Sulfonamide Antibiotics) [SULFA(SULFONAMIDE ANTIBIOTICS)] Allergy (Intermediate, Verified 07/31/23 14:16) ITCHING HPI cough, congestion HPI Details 42-year-old gentleman, lifetime nonsmoker, with underlying history of Down syndrome followed for chronic cough and IPF. Today he presents complaining of worsening of his underlying chronic cough despite suppressive azithromycin therapy. [facility] Medical History Cellulitis Constipation Ascites Pericardial effusion Urethral meatal stenosis Mental and behavioral problem Renal insufficiency Hypercholesterolemia Down syndrome GERD (gastroesophageal reflux disease) BPH (benign prostatic hyperplasia) Hypothyroid Anxiety and depression Pseudoseizures Diabetes mellitus type 1 Surgical History Hx of cataract surgery Family History Father Medical history unknown Mother Medical history unknown Maternal Grandfather Prostate cancer Social History Household Members: None Household Members Other:: other residents and staff Housing: Other Housing Other:: alf Alcohol intake: never Comment: 1:1 Sitter Patient Tobacco Use Status: Never used Tobacco e-Cigarette/Vaping Use: Never Used Second Hand Smoke Exposure: No service: No Current occupational status: disabled Cognitive needs: No Hearing needs: No Vision needs: No Review of Systems Const Denies daytime sleepiness, Denies excessive sweating, Denies fatigue, Denies fever(s), Denies lethargy, Denies malaise, Denies night sweats, Denies snoring and Denies weight loss Eyes Denies blurry vision and Denies itchy eyes ENT Denies nasal congestion, Denies post nasal drip, Denies sinus pain, Denies sinus pressure and Denies other ( Thrush) Card Denies chest pain, Denies pedal edema, Denies dyspnea, Denies orthopnea and Denies paroxysmal nocturnal dyspnea Resp Reports cough, Denies hemoptysis, Reports excessive phlegm production, Denies dyspnea, Denies snoring and Denies wheezing GI Denies abdominal pain and Denies heartburn Musc Denies myalgias, Denies arthralgias and Denies joint swelling Skin/Breast Denies rash Neuro Denies memory loss and Denies seizure-like activity Psych Denies abnormal sleep pattern, Denies anxiety and Denies memory loss Endo Denies excessive sweating, Denies fatigue and Denies heat intolerance Juan/Lymph Denies easy bruising Aller/Immun Denies itchy eyes, Denies seasonal rhinorrhea and Denies wheezing Physical Exam Vital Signs: Last Vital Signs Pulse 62 07/31/23 14:12 BP 118/62 07/31/23 14:12 Pulse Ox 96 07/31/23 14:12 Oxygen Delivery Method Room Air 07/31/23 14:12 BMI result Body Mass Index 29.5 Const General: no acute distress and alert Nutritional Appearance: not obese Orientation/consciousness: Other orientation findings ( oriented) HEENT Head: Yes atraumatic Eyes General: appearance normal, both eyes and all related structures Sclerae: sclerae normal EOM: EOMs intact bilaterally Neck Neck: Yes supple Lymphatic: no lymphadenopathy noted Resp Effort & Inspection: normal respiratory effort and no use of accessory muscles Auscultation: clear to auscultation bilaterally Cardio Rate: regular rate Rhythm: regular rhythm Heart sounds: no gallops, no murmurs and no rubs Skin General skin exam: other ( warm) Extrem General: No clubbing, No cyanosis and No edema Assessment & Plan Assessment & Plan (1) Cough: Code(s): R05.9 - Cough, unspecified Plan: Now with worsening bronchitic symptoms despite suppressive azithromycin therapy. Will restart on DuoNebs twice a day and treat with a course of Levaquin for 7 days. (2) IPF (idiopathic pulmonary fibrosis): Code(s): J84.112 - Idiopathic pulmonary fibrosis Plan: Essentially asymptomatic. Continue to monitor clinically. Will repeat CT chest in 12 months. Medications: New levofloxacin 750 mg PO DAILY 7 tabs 0RF Changed From ipratropium-albuterol 0.5 mg-3 mg(2.5 mg base)/3 mL rinse/wash mouth after each use 3 mL inhalation BID PRN Cough To ipratropium-albuterol 0.5 mg-3 mg(2.5 mg base)/3 mL rinse/wash mouth after each use 3 mL inhalation BID 180 mL 6RF Cough 30 days Coding Level of Care Code Est Pt Level 4 (57442) Diagnoses Cough R05.9 IPF (idiopathic pulmonary fibrosis) J84.112
[2023-07-31 14:12] VITALS: BP 118/62; PULSE 62; O2SAT 96; BMI 29.5
== END 2023-07-31 14:28 | disposition home or self-care (01) ==
PROVIDERS: PCP Internal Medicine; Visit Provider Internal Medicine Pulmonary Disease
DX: R05.9 Cough, unspecified (principal); J84.112 Idiopathic pulmonary fibrosis
CPT/HCPCS: 99214

== ENCOUNTER → 2023-07-31 14:04 | Outpatient (BNVA) | payer MEDICARE, MEDICAID, SELFPAY | PROVIDERS: PCP Internal Medicine; Visit Provider Internal Medicine Pulmonary Disease | DX: J84.112 Idiopathic pulmonary fibrosis (principal); R05.9 Cough, unspecified | CPT/HCPCS: 99212 ==

== ENCOUNTER 2023-08-03 09:14 | Outpatient (AMB) | payer MEDICARE, MEDICAID, SELFPAY ==
--- NOTE | 2023-08-03 09:17 | MHC.OFFVIS ---
Intake Vital Signs 08/03/23 09:22 Height 4 ft 7.9 in Weight 125 lb BMI 28.1 BP 126/85 Blood Pressure Location Lt brachial Position Sitting Pulse 59 Intake Visit Reasons: 4 month follow up Intake Note: Patient 4 month follow up for Constipation. Patient cc: abdominal pain with constipation on and off, acid reflex with burping his food out. Sales Service Technician Required: No Accompanied by: Employee Allergies Sulfa (Sulfonamide Antibiotics) [SULFA(SULFONAMIDE ANTIBIOTICS)] Allergy (Intermediate, Verified 08/03/23 09:17) ITCHING HPI 4 month follow up HPI Details LAST VISIT Constipation Patient will stop Benefiber. Will start him on MiraLax. Continue Colace/Senokot combo. Patient was encouraged to increase fluid intake and activity to promote better bowel motility RUQ abdominal pain Patient reports right upper quadrant discomfort occasionally. Negative High sign. Patient could be constipated, gas trapping pain in hepatic flexure. I will see patient in the for months. Both patient and the geriatric case manager are agreeable to plan of care and verbalizes understanding of instructions. They were given the opportunity to ask questions and all questions answered. ? Thank you for allowing me to participate in his care Plan Orders Orders Lipase Today R10.9 Liver Panel Today R10.9 Pancreatic Elastase-1 Today R10.9 Medications New polyethylene glycol 3350 (Miralax) 17 grams PO DAILY 510 grams 2RF TODAY'S VISIT: Patient is here today for follow-up and to discuss lab results. Patient is accompanied by staff member from [facility]. Patient reports that he has been doing well, however occasionally patient will have loose stools then feel constipated. Patient also reports postprandial abdominal bloating and dyspepsia. Staff of the [facility] that is present today reports that patient frequently will eat very fast without chewing and sometimes he chokes. Patient does admit to be eating very fast. He was coached in the past to slow down, chew his food and count to 10 before taking and other bite. Patient currently is on famotidine 10 mg twice a day. Denies any nausea or vomiting. Denies melena, hematochezia, unintentional weight loss or ribbon like stools. [facility] Medical History Cellulitis Constipation Ascites Pericardial effusion Urethral meatal stenosis Mental and behavioral problem Renal insufficiency Hypercholesterolemia Down syndrome GERD (gastroesophageal reflux disease) BPH (benign prostatic hyperplasia) Hypothyroid Anxiety and depression Pseudoseizures Diabetes mellitus type 1 Surgical History Hx of cataract surgery Family History Father Medical history unknown Mother Medical history unknown Maternal Grandfather Prostate cancer Social History Household Members: None Household Members Other:: other residents and staff Housing: Other Housing Other:: [facility] Alcohol intake: never Comment: 1:1 Sitter Patient Tobacco Use Status: Never used Tobacco e-Cigarette/Vaping Use: Never Used Second Hand Smoke Exposure: No service: No Current occupational status: disabled Cognitive needs: No Hearing needs: No Vision needs: No Review of Systems Const Denies weight gain and Denies weight loss ENT Reports no additional complaints, Denies dysphagia and Denies odynophagia Card Reports no additional complaints Resp Reports no additional complaints GI Denies abdominal pain, Denies belching, Denies melena, Denies bloating, Denies change in bowel habits, Denies dysphagia, Denies excessive flatus, Denies dyspepsia, Reports heartburn, Denies diarrhea, Denies loose stools, Denies nausea, Denies odynophagia and Denies vomiting Reports no additional complaints Musc Reports no additional complaints Neuro Reports no additional complaints Psych Reports no additional complaints Endo Reports no additional complaints Physical Exam Vital Signs: Last Vital Signs Pulse 59 08/03/23 09:22 BP 126/85 08/03/23 09:22 BMI result Body Mass Index 28.1 Const General: healthy appearing, no acute distress and well developed Nutritional Appearance: well nourished Orientation/consciousness: oriented to person Resp Effort & Inspection: normal respiratory effort, able to speak in complete sentences, no tracheal deviation and symmetric chest movement Auscultation: clear to auscultation bilaterally Cardio Rate: regular rate Heart sounds: S1 normal heart sound present and S2 normal heart sound present GI Inspection: Yes normal to inspection and No distended Palpation (GI): Soft to palpation, not firm, nontender and No hepatosplenomegaly present Auscultation: normal bowel sounds General: Yes no CVA tenderness Back/Spine/Pelvis Back: no CVA tenderness Skin General skin exam: elasticity normal, turgor normal and dry skin Neuro General: oriented to person Results Reviewed Results Reviewed: Laboratory Tests 04/03/23 04/03/23 04/04/23 10:46 10:46 08:20 Iron 84 TIBC 190 L Ferritin 458 H Total Bilirubin 0.1 Direct Bilirubin < 0.2 AST 14 ALT 17 Lipase 11 Stool Pancreat Elastase 34 L Assessment & Plan Assessment & Plan (1) Constipation: Code(s): K59.00 - Constipation, unspecified Qualifiers: Constipation type: slow transit constipation Qualified Code(s): K59.01 - Slow transit constipation (2) Dysphagia: Code(s): R13.10 - Dysphagia, unspecified Qualifiers: Dysphagia type: other dysphagia Qualified Code(s): R13.19 - Other dysphagia (3) GERD (gastroesophageal reflux disease): Code(s): K21.9 - Gastro-esophageal reflux disease without esophagitis Qualifiers: Esophagitis presence: without esophagitis Qualified Code(s): K21.9 - Gastro-esophageal reflux disease without esophagitis (4) Exocrine pancreatic insufficiency: Code(s): K86.81 - Exocrine pancreatic insufficiency Plan Diagnosed last visit with pancreatic insufficiency and started on enzymes. Patient is tolerating the enzymes well. Continues to have a dyspepsia will start him on omeprazole in the morning and famotidine at bedtime. Patient will eat smaller bites. His dysphagia is related mostly to him swallowing food that is whole without chewing it. Patient will count to 10 before taking and other bite making sure that he chews his food. Patient is moving his bowels well continue current regimen. Patient was encouraged to increase fluid intake and activity to promote better bowel motility. Patient will avoid dietary triggers and late night snacking. Staying upright for minimal 3 hours after meals discussed with patient. I will see him in 3 months, sooner on as needed basis. Patient is agreeable to this plan and verbalizes understanding of instructions. He was given the opportunity to ask questions and all questions answered. Thank you for allowing me to participate in his care Medications: New famotidine (Pepcid) 20 mg PO BEDTIME 30 tabs 3RF K21.9 - Gastro-esophageal reflux disease without esophagitis omeprazole 20 mg PO DAILY 30 caps 3RF K21.9 - Gastro-esophageal reflux disease without esophagitis Coding Level of Care Code Est Pt Level 3 (78841) Diagnoses Slow transit constipation K59.01 Constipation type: slow transit constipation Other dysphagia R13.19 Dysphagia type: other dysphagia Gastroesophageal reflux disease without esophagitis K21.9 Esophagitis presence: without esophagitis Exocrine pancreatic insufficiency K86.81 Time Spent (min) 30 Comment 20 minutes spent with patient and additional 10 minutes spent reviewing his records
[2023-08-03 09:22] VITALS: BP 126/85; PULSE 59; BMI 28.1
== END 2023-08-03 09:46 | disposition home or self-care (01) ==
PROVIDERS: PCP Internal Medicine; Visit Provider Nurse Practitioner Family
DX: K59.01 Slow transit constipation (principal); R13.19 Other dysphagia; K21.9 Gastro-esophageal reflux disease without esophagitis; K86.81 Exocrine pancreatic insufficiency
CPT/HCPCS: 99213

== ENCOUNTER → 2023-08-03 09:14 | Outpatient (BNVA) | payer MEDICARE, MEDICAID, SELFPAY | PROVIDERS: PCP Internal Medicine; Visit Provider Nurse Practitioner Family | DX: K59.01 Slow transit constipation (principal); R13.19 Other dysphagia; K21.9 Gastro-esophageal reflux disease without esophagitis; K86.81 Exocrine pancreatic insufficiency | CPT/HCPCS: 99212 ==

== ENCOUNTER 2023-10-23 13:46 | Outpatient (AMB) | payer MEDICARE, MEDICAID, SELFPAY ==
[2023-10-23 13:49] VITALS: BP 137/77; PULSE 58; O2SAT 100; BMI 30.6
--- NOTE | 2023-10-23 13:49 | MHC.OFFVIS ---
Intake Vital Signs 10/23/23 13:49 Height 4 ft 7.4 in Weight 133 lb 6.075 oz BMI 30.6 BP 137/77 Blood Pressure Location Rt brachial Position Sitting Pulse 58 Pulse Source Doppler Pulse Oximetry (%) 100 Oxygen Delivery Method Room Air Intake Visit Reasons: cough, congestion Allergies Sulfa (Sulfonamide Antibiotics) [SULFA(SULFONAMIDE ANTIBIOTICS)] Allergy (Intermediate, Verified 08/03/23 09:17) ITCHING HPI cough, congestion HPI Details 42-year-old gentleman, lifetime nonsmoker, with underlying history of Down syndrome followed for chronic cough and IPF. He continues on chronic azithromycin suppressive therapy with reasonable control of his symptoms. He denies recent exacerbations. [facility] Medical History Cellulitis Constipation Ascites Pericardial effusion Urethral meatal stenosis Mental and behavioral problem Renal insufficiency Hypercholesterolemia Down syndrome GERD (gastroesophageal reflux disease) BPH (benign prostatic hyperplasia) Hypothyroid Anxiety and depression Pseudoseizures Diabetes mellitus type 1 Surgical History Hx of cataract surgery Family History Father Medical history unknown Mother Medical history unknown Maternal Grandfather Prostate cancer Social History Household Members: None Household Members Other:: other residents and staff Housing: Other Housing Other:: [facility] Alcohol intake: never Comment: 1:1 Sitter Patient Tobacco Use Status: Never used Tobacco e-Cigarette/Vaping Use: Never Used Second Hand Smoke Exposure: No service: No Current occupational status: disabled Cognitive needs: No Hearing needs: No Vision needs: No Review of Systems Const Denies daytime sleepiness, Denies excessive sweating, Denies fatigue, Denies fever(s), Denies lethargy, Denies malaise, Denies night sweats, Denies snoring and Denies weight loss Eyes Denies blurry vision and Denies itchy eyes ENT Denies nasal congestion, Denies post nasal drip, Denies sinus pain, Denies sinus pressure and Denies other ( Thrush) Card Denies chest pain, Denies pedal edema, Denies dyspnea, Denies orthopnea and Denies paroxysmal nocturnal dyspnea Resp Denies cough, Denies hemoptysis, Denies excessive phlegm production, Denies dyspnea, Denies snoring and Denies wheezing GI Denies abdominal pain and Denies heartburn Musc Denies myalgias, Denies arthralgias and Denies joint swelling Skin/Breast Denies rash Neuro Denies memory loss and Denies seizure-like activity Psych Denies abnormal sleep pattern, Denies anxiety and Denies memory loss Endo Denies excessive sweating, Denies fatigue and Denies heat intolerance Juan/Lymph Denies easy bruising Aller/Immun Denies itchy eyes, Denies seasonal rhinorrhea and Denies wheezing Physical Exam Vital Signs: Last Vital Signs Pulse 58 10/23/23 13:49 BP 137/77 10/23/23 13:49 Pulse Ox 100 10/23/23 13:49 Oxygen Delivery Method Room Air 10/23/23 13:49 BMI result Body Mass Index 30.6 Const General: no acute distress and alert Nutritional Appearance: not obese Orientation/consciousness: Other orientation findings ( oriented) HEENT Head: Yes atraumatic Eyes General: appearance normal, both eyes and all related structures Sclerae: sclerae normal EOM: EOMs intact bilaterally Neck Neck: Yes supple Lymphatic: no lymphadenopathy noted Resp Effort & Inspection: normal respiratory effort and no use of accessory muscles Auscultation: clear to auscultation bilaterally Cardio Rate: regular rate Rhythm: regular rhythm Heart sounds: no gallops, no murmurs and no rubs Skin General skin exam: other ( warm) Extrem General: No clubbing, No cyanosis and No edema Assessment & Plan Assessment & Plan (1) IPF (idiopathic pulmonary fibrosis): Code(s): J84.112 - Idiopathic pulmonary fibrosis Plan: Essentially asymptomatic. Continue follow-up locally. Will repeat chest in 12 months. (2) Chronic cough: Code(s): R05 - Cough Plan: Well controlled on suppressive azithromycin therapy and Brovana twice a day. Continue current regimen. Coding Level of Care Code Est Pt Level 4 (83276) Diagnoses IPF (idiopathic pulmonary fibrosis) J84.112 Chronic cough R05
== END 2023-10-23 14:03 | disposition home or self-care (01) ==
PROVIDERS: PCP Internal Medicine; Visit Provider Internal Medicine Pulmonary Disease
DX: J84.112 Idiopathic pulmonary fibrosis (principal); R05.9 Cough, unspecified
CPT/HCPCS: 99214

== ENCOUNTER → 2023-10-23 13:46 | Outpatient (BNVA) | payer MEDICARE, MEDICAID, SELFPAY | PROVIDERS: PCP Internal Medicine; Visit Provider Internal Medicine Pulmonary Disease | DX: J84.112 Idiopathic pulmonary fibrosis (principal); R05.3 Chronic cough | CPT/HCPCS: 99212 ==

== ENCOUNTER 2023-10-24 13:18 | Outpatient (REF) | payer MEDICARE, MEDICAID, SELFPAY ==
[2023-10-24 17:08] LABS: Urine Cytology See Pathology rpt
== END 2023-10-24 13:19 | disposition home or self-care (01) ==
LOC: HO.LNP 13:18
PROVIDERS: PCP Internal Medicine; Visit Provider Nurse Practitioner Family
DX: N40.1 Benign prostatic hyperplasia with lower urinary tract symptoms (principal); R30.0 Dysuria; N48.89 Other specified disorders of penis; K59.2 Neurogenic bowel, not elsewhere classified; R39.14 Feeling of incomplete bladder emptying; N35.911 Unspecified urethral stricture, male, meatal; R35.0 Frequency of micturition; E10.9 Type 1 diabetes mellitus without complications; Z79.4 Long term (current) use of insulin; Z79.899 Other long term (current) drug therapy
CPT/HCPCS: 51798; 81003; 88112; 99212

== ENCOUNTER 2023-10-24 13:18 | Outpatient (AMB) | payer MEDICARE, MEDICAID, SELFPAY ==
--- NOTE | 2023-10-24 13:36 | MHC.OFFVIS ---
Intake Intake Visit Reasons: 6 mo/ PVR Intake Note: Patient presents today for follow up neurogenic bladder, dysuria, and penile irritation Urology Medications: Tamsulosin Antibiotic Allergy: Sulfa Antibiotics Blood Thinner: Aspirin Pharmacy: [facility] PVR: 57ml's Headwaitress Required: No Accompanied by: Unknown Allergies Sulfa (Sulfonamide Antibiotics) [SULFA(SULFONAMIDE ANTIBIOTICS)] Allergy (Intermediate, Verified 10/24/23 22:11) ITCHING Medication List - Last Reconciled 10/24/23 by ZACK Barrera-MEREDITH acetaminophen (Tylenol) 650 mg (2 x 325 mg) PO Q6H PRN arformoterol 2 mL inhalation BID ascorbic acid (vitamin C) (Vitamin C) 500 mg PO DAILY aspirin 81 mg PO DAILY azithromycin 250 mg PO MOWEFR cetirizine 10 mg PO DAILY PRN 90 days cholecalciferol (vitamin D3) (Vitamin D3) 25 mcg PO DAILY ciclopirox 0.77% 1 appl topical BID citalopram 10 mg PO DAILY famotidine (Pepcid) 20 mg PO BEDTIME ferrous sulfate 325 mg PO DAILY folic acid 0.8 mg PO DAILY glucagon HCl (Glucagon (HCl) Emergency Kit) mg subcut guar gum 1 tbsp PO DAILY insulin glargine (Lantus Solostar U-100 Insulin) 18 units subcut BEDTIME insulin lispro (Humalog KwikPen (U-100) Insulin) 1 sliding scale dose See Protocol subcut TIDAC ipratropium-albuterol 0.5 mg-3 mg(2.5 mg base)/3 mL 3 mL inhalation BID 30 days levothyroxine 100 mcg PO DAILY@0600 iahzax-urrukara-zhtnjgw 24,000-76,000 -120,000 unit (Creon) 1 cap PO QID lisinopril 5 mg PO DAILY lorazepam (Ativan) 0.5 mg PO BEDTIME PRN metoprolol succinate ER 25 mg See Protocol PO DAILY nystatin 1 appl topical TID 30 days omeprazole 20 mg PO DAILY polyethylene glycol 3350 (Miralax) 17 grams PO DAILY sennosides-docusate sodium 8.6-50 mg (Stool Softener-Laxative) 2 tabs PO BEDTIME simvastatin 10 mg PO BEDTIME tamsulosin 0.8 mg (2 x 0.4 mg) PO DAILY@1700 90 days zinc oxide-cod liver oil 40 % (Desitin) 1 appl topical DAILY HPI HPI Comments History of Present Illness Details Bernard is a very pleasant 42 year old male patient of Dr Mcgowan who was accompanied by one of his assisted members. He has a past medical history of cellulitis, constipation, ascites, pericardial effusion, urethral meatal stenosis, mental and behavioral problem, renal insufficiency, hypercholesteremia, Down syndrome, GERD, hypothyroidism, anxiety, depression, pseudoseizures, and type 1 diabetes. He presents to the office today for follow-up of his lower urinary tract symptoms and incomplete bladder emptying. In discussion with the patient and his assisted member today it appears patient is doing well on 0.8 mg of Flomax daily. He has not had any issues with his urination. He does report ongoing bilateral groin rash she has been experiencing. In assessment of the patient today the penis is circumcised with no lesions, open areas, and or redness noted to the penis/scrotum/and or testicles. Bilateral groin areas do appear mildly reddened with scaly/flaky patches. In office urinalysis results reviewed with the patient today. PVR 57 mL. 3+ proteinuria noted on urinalysis however does follow-up with Nephrology. He otherwise offers no other issues or concerns at this time. Balanitis/Phimosis: He presents with a complaint of meatal stenosis. The problem has been treated in 2012 as result of catheterization. Had remained with an indwelling catheter for a number of years. Removed when he moved to a shared home. Associated problems include diabetes Yes Could use steroid cream if need be. At this point meatal area is functional. Lower Urinary Tract Symptoms: Current visit is for further evaluation of, lower urinary tract symptoms, predominate obstructive symptoms. Current treatment includes medication, alpha dean - tamsulosin Prostate Symptom Score Mild (0-8), Bother 2. Symptoms include incomplete emptying, weak stream, nocturia (>2), and are improving 04/09 , weak stream, and are improving. Prior Prostate Score moderate. Testing at next visit will include bladder scan, Prostate Symptom Score. Treatment plan continue with current medications [facility] Medical History Cellulitis Constipation Ascites Pericardial effusion Urethral meatal stenosis Mental and behavioral problem Renal insufficiency Hypercholesterolemia Down syndrome GERD (gastroesophageal reflux disease) BPH (benign prostatic hyperplasia) Hypothyroid Anxiety and depression Pseudoseizures Diabetes mellitus type 1 Surgical History Hx of cataract surgery Family History Father Medical history unknown Mother Medical history unknown Maternal Grandfather Prostate cancer Social History Household Members: None Household Members Other:: other residents and staff Housing: Other Housing Other:: assisted Alcohol intake: never Comment: 1:1 Sitter Patient Tobacco Use Status: Never used Tobacco e-Cigarette/Vaping Use: Never Used Second Hand Smoke Exposure: No service: No Current occupational status: disabled Cognitive needs: No Hearing needs: No Vision needs: No Review of Systems Const Unobtainable due to mental condition Physical Exam Const General: cooperative, comfortable, no acute distress, well developed, alert and awake Orientation/consciousness: oriented to person Limitations: no limitations HEENT Head: Yes normal to inspection Ears: hearing grossly normal bilaterally Neck Neck: Yes normal visual inspection and Yes trachea midline Chest Chest palpation & inspection: normal inspection of the chest Resp Effort & Inspection: normal respiratory effort and able to speak in complete sentences Cardio Rate: regular rate GI Inspection: Yes normal to inspection General: Yes no CVA tenderness Male General Exam: Yes normal external exam Penis: normal penis and circumcised Meatus: meatus normal Scrotum: scrotum normal Testes: Testes normal Back/Spine/Pelvis Back: no CVA tenderness Skin General skin exam: no rashes or lesions noted Neuro General: oriented to person Extrem General: Yes normal to inspection Psych Appearance: well kempt Speech and movement: Normal speech and movement present and Clear speech present Affect: normal affect Attitude: cooperative Insight: Limited insight present (Psych) Judgement: Limited judgement present (Psych) Office Procedures Post Void Residual Post Residual Void Post Void Residual (PVR): 57 [id number] Void Residual by ultrasound Results AMB Urinalysis, Automated UA Leukoctes 0 Allyssa/uL Last Edit by Selina Chowdary on 10/24/23 13:56 UA Nitrite Negative Last Edit by Selina Chowdary on 10/24/23 13:56 UA Urobilinogen 0.2 mg/dL Last Edit by Selina Chowdary on 10/24/23 13:56 UA Protein 300 mg/dL Last Edit by Selina Chowdary on 10/24/23 13:56 UA pH 6.0 Last Edit by Selina Chowdary on 10/24/23 13:56 UA Blood 10 Philippe/uL Last Edit by Selina Chowdary on 10/24/23 13:56 UA Specific [place] 1.015 Last Edit by Robertycjorge alberto Chowdary on 10/24/23 13:56 UA Ketone Negative Last Edit by Selina Chowdary on 10/24/23 13:56 UA Bilirubin 0 mg/dL Last Edit by Selina Chowdary on 10/24/23 13:56 UA Glucose 0 mg/dL Last Edit by Selina Chowdary on 10/24/23 13:56 Results Reviewed Results Reviewed: Laboratory Last Values Urine pH (Auto) 6.0 10/24/23 13:40 Specific [place] (Auto) 1.015 10/24/23 13:40 Urine Protein (Auto) 300 mg/dL 10/24/23 13:40 Glucose (UA)(Auto) 0 mg/dL 10/24/23 13:40 Urine Ketones (Auto) Negative 10/24/23 13:40 Urine Blood (Auto) 10 Philippe/uL 10/24/23 13:40 Urine Nitrite (Auto) Negative 10/24/23 13:40 Urine Bilirubin (Auto) 0 mg/dL 10/24/23 13:40 Urine Urobilinogen (Auto) 0.2 mg/dL 10/24/23 13:40 Leukocyte Esterase (Auto) 0 Allyssa/uL 10/24/23 13:40 Assessment & Plan Assessment & Plan (1) Urethral meatal stenosis: Comment: 2012, Dr. Greer Code(s): N35.919 - Unspecified urethral stricture, male, unspecified site (2) Hypotonic neurogenic bladder: Code(s): N31.9 - Neuromuscular dysfunction of bladder, unspecified (3) BPH (benign prostatic hyperplasia): Code(s): N40.0 - Benign prostatic hyperplasia without lower urinary tract symptoms Qualifiers: Lower urinary tract symptom presence: symptoms present Lower urinary tract symptom detail: urinary frequency Qualified Code(s): N40.1 - Benign prostatic hyperplasia with lower urinary tract symptoms; R35.0 - Frequency of micturition Plan In office urinalysis results reviewed with the patient today 3+ proteinuria; follows with Nephrology. PVR 57 mL. Start nystatin as discussed and prescribed. Continue Flomax 0.8 mg daily as prescribed. Patient currently denies any bothersome urinary issues or concerns. He is happy with his current voiding parameters. Follow-up in 6 months with PVR; or sooner with any issues, concerns, and or questions. Orders: Orders Urine Cytology Today N40.0 - Benign prostatic hyperplasia without lower urinary tract symptoms, R30.0 - Dysuria AMB Urinalysis Automated Today Z13.9 - Encounter for screening, unspecified AMB Post Void Residual by ultrasound Today R30.0 - Dysuria Medications: New nystatin Applied to groin folds/affected area 2-3 times per day 1 appl topical TID 30 days 30 grams 1RF Patient Instructions: The patient had an opportunity to ask questions regarding the treatment plan. All questions were answered. Physical exam, labs, and imaging were discussed and reviewed in detail. As well as risks, benefits, and discussion of treatment choices. No major barriers to understanding were identified. The patient expressed understanding and agreement with the above treatment plan. The patient was made aware they should contact our office by phone for worsening of their current condition, the appearance of new symptoms, or with any questions or concerns. Compliance is encouraged with any medications and follow up testing that is ordered. It is a privilege to be allowed the opportunity to participate in? your urological care.? Again, if you have any questions or concerns If you have any questions or concerns please do not hesitate to contact me. The office is [phone]. This note is constructed using voice recognition software. While every effort has been made to ensure accuracy biofuels operations manager errors may have been included. Yours sincerely, LISETTE Barrera Coding Level of Care Code Est Pt Level 3 (51587) Diagnoses Urethral meatal stenosis N35.919 Hypotonic neurogenic bladder N31.9 Benign prostatic hyperplasia with urinary frequency N40.1; R35.0 Lower urinary tract symptom presence: symptoms present Lower urinary tract symptom detail: urinary frequency CPT Codes Post Residual Void - PVR CPT Code: 11439-Lhyw Void Residual by ultrasound ([id number])
== END 2023-10-24 14:19 | disposition home or self-care (01) ==
PROVIDERS: PCP Internal Medicine; Visit Provider Nurse Practitioner Family
DX: N35.919 Unspecified urethral stricture, male, unspecified site (principal); N31.9 Neuromuscular dysfunction of bladder, unspecified; N40.1 Benign prostatic hyperplasia with lower urinary tract symptoms; R35.0 Frequency of micturition
CPT/HCPCS: 99213

== ENCOUNTER 2023-11-02 09:39 | Outpatient (AMB) | payer MEDICARE, MEDICAID, SELFPAY ==
--- NOTE | 2023-11-02 09:40 | A.OFFVIS_ITS ---
Intake Vital Signs 11/02/23 09:45 Height 4 ft 7 in Weight 127 lb 13.89 oz BMI 29.7 BP 146/65 H Blood Pressure Location Lt brachial Position Sitting Pulse 68 Intake Visit Reasons: 3 month follow up Intake Note: Patient here for 3m f/u constipation. Reports improvement with Miralax, creon. Taking famotidine, omeprazole. Patient c/o: rt abd pain, constipation. Manufacturing Process Engineer Required: No Accompanied by: Nicole Stout manager administrative Allergies Sulfa (Sulfonamide Antibiotics) [SULFA(SULFONAMIDE ANTIBIOTICS)] Allergy (Intermediate, Verified 11/02/23 09:49) ITCHING HPI 3 month follow up HPI Details LAST VISIT Constipation Dysphagia GERD (gastroesophageal reflux disease) Exocrine pancreatic insufficiency Plan Diagnosed last visit with pancreatic insufficiency and started on enzymes. Patient is tolerating the enzymes well. Continues to have a dyspepsia will start him on omeprazole in the morning and famotidine at bedtime. Patient will eat smaller bites. His dysphagia is related mostly to him swallowing food that is whole without chewing it. Patient will count to 10 before taking and other bite making sure that he chews his food. Patient is moving his bowels well continue current regimen. Patient was encouraged to increase fluid intake and activity to promote better bowel motility. Patient will avoid dietary triggers and late night snacking. Staying upright for minimal 3 hours after meals discussed with patient. I will see him in 3 months, sooner on as needed basis. Patient is agreeable to this plan and verbalizes understanding of instructions. He was given the opportunity to ask questions and all questions answered. ? Thank you for allowing me to participate in his care Medications New famotidine (Pepcid) 20 mg PO BEDTIME 30 tabs 3RF K21.9 omeprazole 20 mg PO DAILY 30 caps 3RF K21.9 TODAY'S VISIT Patient is here today for follow-up. Patient is accompanied by all 3 to worker. Patient reports that he no longer has acid reflux. Denies dyspepsia, dysphagia or odynophagia. Reports to have good appetite. Patient continues to have constipation. Taking MiraLax every morning and Senokot at night time and still feels like he is unable to have a good bowel movement. Patient is edge worker thinks that patient is inpatient and is not sitting long enough on the toilet to have a bowel movement. Patient also is refusing to drink more water. Patient denies melena, hematochezia, unintentional weight loss or ribbon like stools. Patient denies any nausea or vomiting. Occasional right lower quadrant pain worse when he is constipated. Patient is tolerating clear Creon. Feels like he is less bloated after starting the medication. [facility] Medical History Cellulitis Constipation Ascites Pericardial effusion Urethral meatal stenosis Mental and behavioral problem Renal insufficiency Hypercholesterolemia Down syndrome GERD (gastroesophageal reflux disease) BPH (benign prostatic hyperplasia) Hypothyroid Anxiety and depression Pseudoseizures Diabetes mellitus type 1 Surgical History Hx of cataract surgery Family History Father Medical history unknown Mother Medical history unknown Maternal Grandfather Prostate cancer Social History Household Members: None Household Members Other:: other residents and staff Housing: Other Housing Other:: long term Alcohol intake: never Comment: 1:1 Sitter Patient Tobacco Use Status: Never used Tobacco e-Cigarette/Vaping Use: Never Used Second Hand Smoke Exposure: No service: No Current occupational status: disabled Cognitive needs: No Hearing needs: No Vision needs: No Review of Systems Const Denies weight gain and Denies weight loss ENT Reports no additional complaints, Denies dysphagia and Denies odynophagia Card Reports no additional complaints Resp Reports no additional complaints GI Reports abdominal pain (RLQ), Denies belching, Denies melena, Denies bloating, Denies change in bowel habits, Reports constipation, Denies dysphagia, Denies excessive flatus, Denies dyspepsia, Denies heartburn, Denies diarrhea, Denies loose stools, Denies nausea, Denies odynophagia and Denies vomiting Reports no additional complaints Musc Reports no additional complaints Neuro Reports no additional complaints Psych Reports no additional complaints Endo Reports no additional complaints Physical Exam Vital Signs: Last Vital Signs Pulse 68 11/02/23 09:45 BP 146/65 H 11/02/23 09:45 BMI result Body Mass Index 29.7 Const General: healthy appearing, no acute distress and well developed Nutritional Appearance: well nourished Orientation/consciousness: oriented to person Resp Effort & Inspection: normal respiratory effort, able to speak in complete sentences, no tracheal deviation and symmetric chest movement Auscultation: clear to auscultation bilaterally Cardio Rate: regular rate Heart sounds: S1 normal heart sound present and S2 normal heart sound present GI Inspection: Yes normal to inspection and No distended Palpation (GI): Soft to palpation, not firm, nontender and No hepatosplenomegaly present Auscultation: normal bowel sounds General: Yes no CVA tenderness Back/Spine/Pelvis Back: no CVA tenderness Skin General skin exam: elasticity normal, turgor normal and dry skin Neuro General: oriented to person Assessment & Plan Assessment & Plan (1) Constipation: Code(s): K59.00 - Constipation, unspecified Qualifiers: Constipation type: slow transit constipation Qualified Code(s): K59.01 - Slow transit constipation (2) Dysphagia: Code(s): R13.10 - Dysphagia, unspecified Qualifiers: Dysphagia type: other dysphagia Qualified Code(s): R13.19 - Other dysphagia (3) GERD (gastroesophageal reflux disease): Code(s): K21.9 - Gastro-esophageal reflux disease without esophagitis Qualifiers: Esophagitis presence: without esophagitis Qualified Code(s): K21.9 - Gastro-esophageal reflux disease without esophagitis (4) Exocrine pancreatic insufficiency: Code(s): K86.81 - Exocrine pancreatic insufficiency (5) Postprandial abdominal bloating: Code(s): R14.0 - Abdominal distension (gaseous) Plan Continue taking omeprazole and famotidine as ordered. Patient was encouraged to avoid dietary triggers and late night snacking. Eating slow bites and chewing his food well. Patient was also encouraged to drink more water. Will switch him from senna to Dulcolax. Patient can continue MiraLax in the morning. He will return in 3 months, sooner on as needed basis. Patient will continue Creon with meals up to 4 times a day. Avoid carbs and sugars. He is agreeable to this plan and verbalizes understanding of instructions. He was given the opportunity to ask questions and all questions answered. Thank you for allowing me to participate in his care Medications: New bisacodyl (Dulcolax (bisacodyl)) 10 mg (2 x 5 mg) PO BEDTIME 180 tabs 4RF Discontinued sennosides-docusate sodium 8.6-50 mg (Stool Softener-Laxative) Discontinued Reason: Doctor's Order 2 tabs PO BEDTIME 180 tabs 3RF E10.65 - Type 1 diabetes mellitus with hyperglycemia Coding Level of Care Code Est Pt Level 4 (98649) Diagnoses Slow transit constipation K59.01 Constipation type: slow transit constipation Other dysphagia R13.19 Dysphagia type: other dysphagia Gastroesophageal reflux disease without esophagitis K21.9 Esophagitis presence: without esophagitis Exocrine pancreatic insufficiency K86.81 Postprandial abdominal bloating R14.0 Time Spent (min) 35 Comment 25 minutes spent with patient and additional 10 minutes spent reviewing his records
[2023-11-02 09:45] VITALS: BP 146/65; PULSE 68; BMI 29.7
== END 2023-11-02 10:10 | disposition home or self-care (01) ==
PROVIDERS: PCP Internal Medicine; Visit Provider Nurse Practitioner Family
DX: K59.01 Slow transit constipation (principal); R13.19 Other dysphagia; K21.9 Gastro-esophageal reflux disease without esophagitis; K86.81 Exocrine pancreatic insufficiency; R14.0 Abdominal distension (gaseous)
CPT/HCPCS: 99214

== ENCOUNTER → 2023-11-02 09:39 | Outpatient (BNVA) | payer MEDICARE, MEDICAID, SELFPAY | PROVIDERS: PCP Internal Medicine; Visit Provider Nurse Practitioner Family | DX: K59.01 Slow transit constipation (principal); K21.9 Gastro-esophageal reflux disease without esophagitis; K86.81 Exocrine pancreatic insufficiency; R13.19 Other dysphagia; R14.0 Abdominal distension (gaseous) | CPT/HCPCS: 99212 ==

== ENCOUNTER 2023-11-22 14:02 | Outpatient (AMB) | payer MEDICARE, MEDICAID, SELFPAY ==
[2023-11-22 14:05] VITALS: BP 152/74; PULSE 99; O2SAT 68
--- NOTE | 2023-11-22 14:05 | HO.NEPHOV ---
Vital Signs 11/22/23 14:05 Height 4 ft 7 in BP 152/74 H Blood Pressure Location Rt brachial Position Sitting Pulse 99 Pulse Source Pulse Oximeter Pulse Oximetry (%) 68 L Oxygen Delivery Method Room Air Intake Visit Reasons: High Potassium levels/ Confirmed Warehouse Coordinator Required: No Accompanied by: SHEEP OR CALF GRADER Allergies Sulfa (Sulfonamide Antibiotics) [SULFA(SULFONAMIDE ANTIBIOTICS)] Allergy (Intermediate, Verified 11/22/23 14:11) ITCHING HPI Comments Details: Bernard has been referred for evaluation of chronic disease and hyperkalemia. Bernard is well known to me. He has previously seen in 2020. He has a history of Down syndrome and diabetes mellitus complicated by chronic disease. He has significant proteinuria in the setting of longstanding diabetes medicine the working diagnosis is diabetic kidney disease. Serum creatinine has been fluctuating between 1.5 and 1.7 mg/dL. Recently serum creatinine was found to be at 2.0. He has also had recurrent episodes of hyperkalemia. Last month potassium was 5.7 however about a week ago potassium was 2.0. He has been referred for further evaluation. He is being followed by urology for BPH and a history of meatal stenosis. In the past he had no evidence of obstructive uropathy based on imaging studies. Today was accompanied by caregiver. No specific complaints today. No nausea vomiting. No diarrhea constipation. He is on MiraLax and has bowel movements every day. No shortness of breath cough or expectoration. No urine symptoms. No edema no fever no rash. [facility] Medical History (Updated 11/22/23 @ 14:30 by Pineda Tarango MD) Cellulitis Constipation Ascites Pericardial effusion Urethral meatal stenosis Mental and behavioral problem Renal insufficiency Hypercholesterolemia Down syndrome GERD (gastroesophageal reflux disease) BPH (benign prostatic hyperplasia) Hypothyroid Anxiety and depression Pseudoseizures Diabetes mellitus type 1 Surgical History Hx of cataract surgery Family History Father Medical history unknown Mother Medical history unknown Maternal Grandfather Prostate cancer Social History Household Members: None Household Members Other:: other residents and staff Housing: Other Housing Other:: half-way Alcohol intake: never Comment: 1:1 Sitter Patient Tobacco Use Status: Never used Tobacco e-Cigarette/Vaping Use: Never Used Second Hand Smoke Exposure: No service: No Current occupational status: disabled Cognitive needs: No Hearing needs: No Vision needs: No Physical Exam Vital Signs: Last Vital Signs Pulse 99 11/22/23 14:05 BP 152/74 H 11/22/23 14:05 Pulse Ox 68 L 11/22/23 14:05 Oxygen Delivery Method Room Air 11/22/23 14:05 Const Other: Short stature General: comfortable HEENT Head: No normal to inspection Mouth: moist mucous membranes Neck Neck: Yes supple and Yes no JVD Resp Auscultation: clear to auscultation bilaterally, no rales and rub present Cardio Jugular venous distension: no JVD Palpation: no palpable S3 and no palpable S4 Heart sounds: no rubs GI Palpation (GI): Soft to palpation and nontender Percussion: No Fluid wave present General: Yes no CVA tenderness Back/Spine/Pelvis Back: no CVA tenderness Skin General skin exam: no rashes or lesions noted Extrem General: Yes no pedal edema and No clubbing Results Reviewed Results Reviewed: As of Potassium 5.7 creatinine 2.0 Nephrology Results: No Data to Display Assessment & Plan Assessment & Plan (1) Renal insufficiency: Code(s): N28.9 - Disorder of kidney and ureter, unspecified Category: Medical (2) Hyperkalemia: Code(s): E87.5 - Hyperkalemia Category: Medical Plan 40-year-old man with Down syndrome and longstanding diabetes mellitus has chronic disease. Does been a gradual increase in creatinine with hyperkalemia. CKD is probably due to diabetic kidney disease. With a history of meatal stenosis and phimosis urinary retention should be considered. Clinically there is no evidence of obstruction at this time. Currently is on low-dose of ADRIANA-inhibitor for renal protection. Goal is to slow the portion disease Continue overt nephrotoxic agents including NSAIDs. Optimize blood pressure. Today blood pressure is suboptimal I will add amlodipine 2.5 mg once a day. He should stand low-sodium diet. Hyperkalemia is due to decreased potassium excretion in the setting of CKD. Needs to stay on low-potassium diet I will add Lokelma 5 g to be taken 3 times a week. Repeat potassium has been ordered. Vitamin-D deficiency he has been prescribed supplementation by PCP. Orders: Orders Basic Metabolic Panel 3 Weeks E87.5 - Hyperkalemia, N17.9 - Acute kidney failure, unspecified, N28.9 - Disorder of kidney and ureter, unspecified Medications: New amlodipine 2.5 mg PO DAILY 30 tabs 2RF sodium zirconium cyclosilicate (Lokelma) 5 grams orally 3 times a week( every SUN,SUN,Fridays); Mix with water. 11 ea 1RF Coding Level of Care Code New Pt Level 5 (61051) Diagnoses Renal insufficiency N28.9 Hyperkalemia E87.5
== END 2023-11-22 14:35 | disposition home or self-care (01) ==
PROVIDERS: PCP Internal Medicine; Visit Provider Internal Medicine Hypertension Specialist
DX: E10.22 Type 1 diabetes mellitus with diabetic chronic kidney disease (principal); N18.9 Chronic kidney disease, unspecified; E87.5 Hyperkalemia; Q90.9 Down syndrome, unspecified
CPT/HCPCS: 99214

== ENCOUNTER → 2023-11-22 14:02 | Outpatient (BNVA) | payer MEDICARE, MEDICAID, SELFPAY | PROVIDERS: PCP Internal Medicine; Visit Provider Internal Medicine Hypertension Specialist | DX: N28.9 Disorder of kidney and ureter, unspecified (principal); E87.5 Hyperkalemia | CPT/HCPCS: 99212 ==

== ENCOUNTER 2023-12-21 07:11 | Outpatient (REF) | payer MEDICARE, MEDICAID, SELFPAY ==
[2023-12-21 08:01] LABS: Anion Gap 9 (12-20); Blood Urea Nitrogen 42 mg/dL (9-16); Calcium 9.1 mg/dL (8.4-10.2); Carbon Dioxide 29 mmol/L (22-29); Chloride 105 mmol/L (96-108); Estimated Glomerular Filt Rate 45; Glucose Random 154 mg/dL (60-115); Potassium 5.2 mmol/L (3.3-5.1); Sodium 138 mmol/L (135-145)
== END 2023-12-21 07:12 | disposition home or self-care (01) ==
LOC: HO.LAB 07:11
PROVIDERS: Absent Provider Internal Medicine Hypertension Specialist; PCP Internal Medicine; Visit Provider Internal Medicine
DX: N17.9 Acute kidney failure, unspecified (principal); N28.9 Disorder of kidney and ureter, unspecified; E87.5 Hyperkalemia
CPT/HCPCS: 36415; 80048

== ENCOUNTER 2023-12-27 09:47 | Outpatient (AMB) | payer MEDICARE, MEDICAID, SELFPAY ==
[2023-12-27 09:49] VITALS: BP 100/52; PULSE 64; O2SAT 99; BMI 29.7
--- NOTE | 2023-12-27 09:49 | HO.NEPHOV ---
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 Bernard is well known to me. He has previously seen in 2020. He has a history of Down syndrome and diabetes mellitus complicated by chronic disease. He has significant proteinuria in the setting of longstanding diabetes medicine the working diagnosis is diabetic kidney disease. Serum creatinine has been fluctuating between 1.5 and 1.7 mg/dL. Recently serum creatinine was found to be at 2.0. He has also had recurrent episodes of hyperkalemia. Last month potassium was 5.7 however about a week ago potassium was 2.0. He has been referred for further evaluation. He is being followed by urology for BPH and a history of meatal stenosis. In the past he had no evidence of obstructive uropathy based on imaging studies. Today was accompanied by caregiver. No specific complaints today. No nausea vomiting. No diarrhea constipation. He is on MiraLax and has bowel movements every day. No shortness of breath cough or expectoration. No urine symptoms. No edema no fever no rash. [facility] Medical History (Updated 11/22/23 @ 14:30 by Pineda Tarango MD) Cellulitis Constipation Ascites Pericardial effusion Urethral meatal stenosis Mental and behavioral problem Renal insufficiency Hypercholesterolemia Down syndrome GERD (gastroesophageal reflux disease) BPH (benign prostatic hyperplasia) Hypothyroid Anxiety and depression Pseudoseizures Diabetes mellitus type 1 Surgical History Hx of cataract surgery Family History Father Medical history unknown Mother Medical history unknown Maternal Grandfather Prostate cancer Social History Household Members: None Household Members Other:: other residents and staff Housing: Other Housing Other:: shelter Alcohol intake: never Comment: 1:1 Sitter Patient Tobacco Use Status: Never used Tobacco e-Cigarette/Vaping Use: Never Used Second Hand Smoke Exposure: No service: No Current occupational status: disabled Cognitive needs: No Hearing needs: No Vision needs: No Physical Exam Vital Signs: Last Vital Signs Pulse 64 12/27/23 09:49 BP 100/52 L 12/27/23 09:49 Pulse Ox 99 12/27/23 09:49 Oxygen Delivery Method Room Air 12/27/23 09:49 BMI result Body Mass Index 29.7 Const Other: Short stature General: comfortable HEENT Head: No normal to inspection Mouth: moist mucous membranes Neck Neck: Yes supple and Yes no JVD Resp Auscultation: clear to auscultation bilaterally, no rales and rub present Cardio Jugular venous distension: no JVD Palpation: no palpable S3 and no palpable S4 Heart sounds: no rubs GI Palpation (GI): Soft to palpation and nontender Percussion: No Fluid wave present General: Yes no CVA tenderness Back/Spine/Pelvis Back: no CVA tenderness Skin General skin exam: no rashes or lesions noted Extrem General: Yes no pedal edema and No clubbing Results Reviewed Nephrology Results: Sodium 138 mmol/L (135-145) 12/21/23 Potassium 5.2 mmol/L (3.3-5.1) H 12/21/23 Chloride 105 mmol/L (96-108) 12/21/23 Carbon Dioxide 29 mmol/L (22-29) 12/21/23 BUN 42 mg/dL (9-16) H 12/21/23 Creatinine 1.67 mg/dL (0.5-1.4) H 12/21/23 Calcium 9.1 mg/dL (8.4-10.2) 12/21/23 Assessment & Plan Assessment & Plan (1) Hyperkalemia: Code(s): E87.5 - Hyperkalemia Category: Medical (2) Renal insufficiency: Code(s): N28.9 - Disorder of kidney and ureter, unspecified Category: Medical Plan . 43-year-old man with Down syndrome and longstanding diabetes mellitus has chronic disease. Does been a gradual increase in creatinine with hyperkalemia. CKD is probably due to diabetic kidney disease. With a history of meatal stenosis and phimosis urinary retention should be considered. Clinically there is no evidence of obstruction at this time. Renal ultrasound ordered Currently is on low-dose of ADRIANA-inhibitor for renal protection. Goal is to slow the progression of kidney disease Continue to avoid nephrotoxic agents including NSAIDs. Today blood pressure is LOW I will STOP LISINOPRIL 5 mg Hyperkalemia is due to decreased potassium excretion in the setting of CKD. Needs to stay on low-potassium diet Keep Lokelma 5 g to be taken 3 times a week. After stopping Lisinopril, K should improve Repeat potassium has been ordered. Vitamin-D deficiency Orders: Orders Basic Metabolic Panel 3 Weeks E87.5 - Hyperkalemia US renal BI Today N28.9 - Disorder of kidney and ureter, unspecified Medications: Discontinued lisinopril Discontinued Reason: Doctor's Order 5 mg PO DAILY 90 tabs 2RF Coding Level of Care Code Tele Est Pt Level 3 (55039) Diagnoses Hyperkalemia E87.5 Renal insufficiency N28.9
== END 2023-12-27 10:10 | disposition home or self-care (01) ==
PROVIDERS: PCP Internal Medicine; Visit Provider Internal Medicine Hypertension Specialist
DX: E87.5 Hyperkalemia (principal); E11.22 Type 2 diabetes mellitus with diabetic chronic kidney disease; N18.9 Chronic kidney disease, unspecified
CPT/HCPCS: 99214

== ENCOUNTER → 2023-12-27 09:47 | Outpatient (BNVA) | payer MEDICARE, MEDICAID, SELFPAY | PROVIDERS: PCP Internal Medicine; Visit Provider Internal Medicine Hypertension Specialist | DX: E87.5 Hyperkalemia (principal); N28.9 Disorder of kidney and ureter, unspecified | CPT/HCPCS: 99212 ==

== ENCOUNTER 2024-01-02 15:17 | Outpatient (REF) | payer MEDICARE, MEDICAID, SELFPAY ==
--- NOTE | ~2024-01-02 | US_ITS ---
EXAMINATION: US RETROPERITONEAL LIMITED (RENAL ONLY) CLINICAL INFORMATION: Disorder of kidney and ureter, unspecified. COMPARISON: CT abdomen and pelvis 02/10/2023. Renal ultrasound with bladder 03/03/2020 and 07/04/2018. X-ray abdomen KUB 08/14/2012. TECHNIQUE: Real-time imaging of the kidneys. FINDINGS: RIGHT KIDNEY: 9.5 x 5.1 x 4.7 cm (SAG x AP x TRV). The kidney is normal in size, contour, and echogenicity. Renal cortical thickness is normal. No calculi or focal parenchymal lesions. No hydronephrosis. LEFT KIDNEY: 10.2 x 5.4 x 5.0 cm (SAG x AP x TRV). The kidney is normal in size, contour, and echogenicity. Renal cortical thickness is normal. No calculi or focal parenchymal lesions. No hydronephrosis. US/US renal BI IMPRESSION: Normal-appearing kidneys.
== END 2024-01-02 15:18 | disposition home or self-care (01) ==
LOC: HO.HMGCX 15:17
PROVIDERS: PCP Internal Medicine; Visit Provider Internal Medicine Hypertension Specialist
DX: N28.9 Disorder of kidney and ureter, unspecified (principal)
CPT/HCPCS: 76775

== ENCOUNTER 2024-01-30 14:22 | Outpatient (REF) | payer MEDICARE, MEDICAID, SELFPAY ==
[2024-01-30 15:53] LABS: Anion Gap 10 (12-20); Blood Urea Nitrogen 39 mg/dL (9-16); Calcium 8.3 mg/dL (8.4-10.2); Carbon Dioxide 25 mmol/L (22-29); Chloride 101 mmol/L (96-108); Estimated Glomerular Filt Rate 34; Potassium 4.8 mmol/L (3.3-5.1); Sodium 131 mmol/L (135-145)
[2024-01-30 15:56] LABS: Glucose Random 408 mg/dL (60-115)
== END 2024-01-30 14:23 | disposition home or self-care (01) ==
LOC: HO.LAB 14:22
PROVIDERS: PCP Internal Medicine; Visit Provider Internal Medicine Hypertension Specialist
DX: E87.5 Hyperkalemia (principal)
CPT/HCPCS: 36415; 80048

== ENCOUNTER 2024-01-31 10:33 | Outpatient (AMB) | payer MEDICARE, MEDICAID, SELFPAY ==
[2024-01-31 10:32] VITALS: BP 160/68; PULSE 72; O2SAT 99; BMI 30.9
--- NOTE | 2024-01-31 10:32 | HO.NEPHOV_ITS ---
Vital Signs 01/31/24 10:32 Height 4 ft 7 in Weight 133 lb BMI 30.9 BP 160/68 H Blood Pressure Location Rt brachial Position Sitting Pulse 72 Pulse Source Pulse Oximeter Pulse Oximetry (%) 99 Oxygen Delivery Method Room Air Intake Visit Reasons: Renal insufficiency/ 1 MO FU/ Conf Hospital Unit Coordinator Required: No Accompanied by: Direct Care Ixia Allergies Sulfa (Sulfonamide Antibiotics) [SULFA(SULFONAMIDE ANTIBIOTICS)] Allergy (Intermediate, Verified 01/31/24 10:34) ITCHING Medication List - Last Reconciled 01/31/24 by Pineda Tarango MD acetaminophen (Tylenol) 650 mg (2 x 325 mg) PO Q6H PRN arformoterol 2 mL inhalation BID ascorbic acid (vitamin C) (Vitamin C) 500 mg PO DAILY aspirin 81 mg PO DAILY azithromycin 250 mg PO MOWEFR bisacodyl (Dulcolax (bisacodyl)) 10 mg (2 x 5 mg) PO BEDTIME cetirizine 10 mg PO DAILY PRN 90 days cholecalciferol (vitamin D3) 50 mcg PO DAILY ciclopirox 0.77% 1 appl topical BID citalopram 20 mg PO DAILY famotidine (Pepcid) 20 mg PO BEDTIME ferrous sulfate 325 mg PO DAILY folic acid 0.8 mg PO DAILY glucagon HCl (Glucagon (HCl) Emergency Kit) 1 mg subcut ONCE PRN guar gum 1 tbsp PO DAILY insulin glargine (Lantus Solostar U-100 Insulin) 17 units subcut BEDTIME insulin lispro (Humalog KwikPen (U-100) Insulin) 1 sliding scale dose See Protocol subcut TIDAC ipratropium-albuterol 0.5 mg-3 mg(2.5 mg base)/3 mL 3 mL inhalation BID 30 days levothyroxine 100 mcg PO DAILY@0600 rpwnns-lnxbhhji-eavvsmm 24,000-76,000 -120,000 unit (Creon) 1 cap PO QID lorazepam (Ativan) 0.5 mg PO BEDTIME PRN metoprolol succinate ER 25 mg See Protocol PO DAILY nystatin 1 appl topical TID 30 days omeprazole 20 mg PO DAILY polyethylene glycol 3350 (Miralax) 17 grams PO DAILY simvastatin 10 mg PO BEDTIME sodium zirconium cyclosilicate (Lokelma) 5 grams orally 3 times a week( every MON,WED,Fridays); Mix with water. tamsulosin 0.8 mg (2 x 0.4 mg) PO DAILY@1700 90 days zinc oxide-cod liver oil 40 % (Desitin) 1 appl topical DAILY HPI Comments Details: Bernard has been referred for evaluation of chronic disease and hyperkalemia. Bernard is well known to me. He has previously seen in 2020. He has a history of Down syndrome and diabetes mellitus complicated by chronic disease. He has significant proteinuria in the setting of longstanding diabetes medicine the working diagnosis is diabetic kidney disease. Serum creatinine has been fluctuating between 1.5 and 1.7 mg/dL. Recently serum creatinine was found to be at 2.0. He has also had recurrent episodes of hyperkalemia. Last month potassium was 5.7 however about a week ago potassium was 2.0. He has been referred for further evaluation. He is being followed by urology for BPH and a history of meatal stenosis. In the past he had no evidence of obstructive uropathy based on imaging studies. Today was accompanied by caregiver. No specific complaints today. No nausea vomiting. No diarrhea constipation. He is on MiraLax and has bowel movements every day. No shortness of breath cough or expectoration. No urine symptoms. No edema no fever no rash. 01/31/24 Amlodipine discontinued [facility] Medical History (Updated 11/22/23 @ 14:30 by Pineda Tarango MD) Cellulitis Constipation Ascites Pericardial effusion Urethral meatal stenosis Mental and behavioral problem Renal insufficiency Hypercholesterolemia Down syndrome GERD (gastroesophageal reflux disease) BPH (benign prostatic hyperplasia) Hypothyroid Anxiety and depression Pseudoseizures Diabetes mellitus type 1 Surgical History Hx of cataract surgery Family History Father Medical history unknown Mother Medical history unknown Maternal Grandfather Prostate cancer Social History Household Members: None Household Members Other:: other residents and staff Housing: Other Housing Other:: custodial Alcohol intake: never Comment: 1:1 Sitter Patient Tobacco Use Status: Never used Tobacco e-Cigarette/Vaping Use: Never Used Second Hand Smoke Exposure: No service: No Current occupational status: disabled Cognitive needs: No Hearing needs: No Vision needs: No Physical Exam Vital Signs: Last Vital Signs Pulse 72 01/31/24 10:32 BP 160/68 H 01/31/24 10:32 Pulse Ox 99 01/31/24 10:32 Oxygen Delivery Method Room Air 01/31/24 10:32 BMI result Body Mass Index 30.9 Awake. Comfortable. Neck is supple. Mucosa moist. Lungs AE equal Heart S1-S2 heard no gallop. Abdomen soft. Extremities Trace edema. No involuntary movements. No myoclonus. Results Reviewed Nephrology Results: Sodium 131 mmol/L (135-145) L 01/30/24 Potassium 4.8 mmol/L (3.3-5.1) 01/30/24 Chloride 101 mmol/L (96-108) 01/30/24 Carbon Dioxide 25 mmol/L (22-29) 01/30/24 BUN 39 mg/dL (9-16) H 01/30/24 Creatinine 2.11 mg/dL (0.5-1.4) H 01/30/24 Calcium 8.3 mg/dL (8.4-10.2) L 01/30/24 Renal US 01/02/24 Assessment & Plan Assessment & Plan (1) Hyperkalemia: Code(s): E87.5 - Hyperkalemia Category: Medical (2) Renal insufficiency: Code(s): N28.9 - Disorder of kidney and ureter, unspecified Category: Medical Plan . 43-year-old man with Down syndrome and longstanding diabetes mellitus has chronic disease. Does been a gradual increase in creatinine with hyperkalemia. CKD is probably due to diabetic kidney disease. With a history of meatal stenosis and phimosis urinary retention should be considered. Clinically there is no evidence of obstruction at this time. Renal ultrasound reported normal Was on low-dose of ADRIANA-inhibitor for renal protection. Stopped due to Hyperkalemia adn LOW BP Goal is to slow the progression of kidney disease Continue to avoid nephrotoxic agents including NSAIDs. Hyperkalemia is due to decreased potassium excretion in the setting of CKD. Needs to stay on low-potassium diet Keep Lokelma 5 g to be taken 3 times a week. After stopping Lisinopril, K should improve Follow potassium Vitamin-D deficiency HTN - sub optimal Can INCREASE AMlodipine to 5 mg DAILY and titrate Coding Level of Care Code Est Pt Level 4 (17316) Diagnoses Hyperkalemia E87.5 Renal insufficiency N28.9
== END 2024-01-31 10:51 | disposition home or self-care (01) ==
PROVIDERS: PCP Internal Medicine; Visit Provider Internal Medicine Hypertension Specialist
DX: E87.5 Hyperkalemia (principal); N28.9 Disorder of kidney and ureter, unspecified
CPT/HCPCS: 99214

== ENCOUNTER → 2024-01-31 10:33 | Outpatient (BNVA) | payer MEDICARE, MEDICAID, SELFPAY | PROVIDERS: PCP Internal Medicine; Visit Provider Internal Medicine Hypertension Specialist | DX: E87.5 Hyperkalemia (principal); N28.9 Disorder of kidney and ureter, unspecified | CPT/HCPCS: 99212 ==

== ENCOUNTER 2024-02-01 08:49 | Outpatient (AMB) | payer MEDICARE, MEDICAID, SELFPAY ==
--- NOTE | 2024-02-01 08:55 | MHC.OFFVIS ---
Vital Signs 02/01/24 08:57 Height 4 ft 7 in Weight 130 lb BMI 30.2 BP 154/83 H Blood Pressure Location Lt brachial Position Sitting Pulse 69 Intake Visit Reasons: 3 month follow up GERD CIC abd pain Intake Note: Patient follow up for GERD, Constipation, and abdominal pain. Patient cc: abdominal discomfort and constipation with hard stool. Extractions Technologist Required: No Accompanied by: Employee Allergies Sulfa (Sulfonamide Antibiotics) [SULFA(SULFONAMIDE ANTIBIOTICS)] Allergy (Intermediate, Verified 02/01/24 08:55) ITCHING HPI HPI 3 month follow up GERD CIC abd pain: Details: LAST VISIT Constipation Dysphagia GERD (gastroesophageal reflux disease) Exocrine pancreatic insufficiency Postprandial abdominal bloating Plan Continue taking omeprazole and famotidine as ordered. Patient was encouraged to avoid dietary triggers and late night snacking. Eating slow bites and chewing his food well. Patient was also encouraged to drink more water. Will switch him from senna to Dulcolax. Patient can continue MiraLax in the morning. He will return in 3 months, sooner on as needed basis. Patient will continue Creon with meals up to 4 times a day. Avoid carbs and sugars. He is agreeable to this plan and verbalizes understanding of instructions. He was given the opportunity to ask questions and all questions answered. ? Thank you for allowing me to participate in his care Medications New bisacodyl (Dulcolax (bisacodyl)) 10 mg (2 x 5 mg) PO BEDTIME 180 tabs 4RF Discontinued sennosides-docusate sodium 8.6-50 mg (Stool Softener-Laxative) Discontinued Reason: Doctor's Order 2 tabs PO BEDTIME 180 tabs 3RF E10.65 TODAY'S VISIT Patient is here today for follow-up. 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 Patient continues to have trouble moving his bowels. States that feels like it is hard to push. He takes MiraLax in the morning and Dulcolax in the evening. Tour Sales Representative reports that patient does not have patience to sit still on the toilet to have a bowel movement. Patient denies any melena, hematochezia. Patient denies any dyspepsia, dysphagia or odynophagia. Patient is taking omeprazole in the morning and famotidine at bedtime. Patient reports that he no longer experiences acid reflux. Denies any dyspepsia, dysphagia or odynophagia. Patient is taking Creon and is tolerating it well. Patient denies any other GI concerning symptoms. [facility] Medical History (Updated 11/22/23 @ 14:30 by Pineda Tarango MD) Cellulitis Constipation Ascites Pericardial effusion Urethral meatal stenosis Mental and behavioral problem Renal insufficiency Hypercholesterolemia Down syndrome GERD (gastroesophageal reflux disease) BPH (benign prostatic hyperplasia) Hypothyroid Anxiety and depression Pseudoseizures Diabetes mellitus type 1 Surgical History Hx of cataract surgery Family History Father Medical history unknown Mother Medical history unknown Maternal Grandfather Prostate cancer Social History Household Members: None Household Members Other:: other residents and staff Housing: Other Housing Other:: prison Alcohol intake: never Comment: 1:1 Sitter Patient Tobacco Use Status: Never used Tobacco e-Cigarette/Vaping Use: Never Used Second Hand Smoke Exposure: No service: No Current occupational status: disabled Cognitive needs: No Hearing needs: No Vision needs: No Review of Systems Const Denies weight gain and Denies weight loss ENT Reports no additional complaints, Denies dysphagia and Denies odynophagia Card Reports no additional complaints Resp Reports no additional complaints GI Reports abdominal pain (RLQ), Denies belching, Denies melena, Denies bloating, Denies change in bowel habits, Reports constipation, Denies dysphagia, Denies excessive flatus, Denies dyspepsia, Denies heartburn, Denies diarrhea, Denies loose stools, Denies nausea, Denies odynophagia and Denies vomiting Reports no additional complaints Musc Reports no additional complaints Neuro Reports no additional complaints Psych Reports no additional complaints Endo Reports no additional complaints Physical Exam Vital Signs: Last Vital Signs Pulse 69 02/01/24 08:57 BP 154/83 H 02/01/24 08:57 BMI result Body Mass Index 30.2 Const General: healthy appearing, no acute distress and well developed Nutritional Appearance: well nourished Orientation/consciousness: oriented to person Resp Effort & Inspection: normal respiratory effort, able to speak in complete sentences, no tracheal deviation and symmetric chest movement Auscultation: clear to auscultation bilaterally Cardio Rate: regular rate Heart sounds: S1 normal heart sound present and S2 normal heart sound present GI Inspection: Yes normal to inspection and No distended Palpation (GI): Soft to palpation, not firm, nontender and No hepatosplenomegaly present Auscultation: normal bowel sounds General: Yes no CVA tenderness Back/Spine/Pelvis Back: no CVA tenderness Skin General skin exam: elasticity normal, turgor normal and dry skin Neuro General: oriented to person Assessment & Plan Assessment & Plan (1) Constipation: Code(s): K59.00 - Constipation, unspecified Category: Medical Qualifiers: Constipation type: slow transit constipation Qualified Code(s): K59.01 - Slow transit constipation (2) Dysphagia: Code(s): R13.10 - Dysphagia, unspecified Category: Medical Qualifiers: Dysphagia type: other dysphagia Qualified Code(s): R13.19 - Other dysphagia (3) GERD (gastroesophageal reflux disease): Code(s): K21.9 - Gastro-esophageal reflux disease without esophagitis Category: Medical Qualifiers: Esophagitis presence: without esophagitis Qualified Code(s): K21.9 - Gastro-esophageal reflux disease without esophagitis (4) Exocrine pancreatic insufficiency: Code(s): K86.81 - Exocrine pancreatic insufficiency (5) Postprandial abdominal bloating: Code(s): R14.0 - Abdominal distension (gaseous) Plan Dulcolax and Colace. Patient can start taking MiraLax in the morning on as needed basis. Continue Creon as it helps him with bloating. Patient was coached to sit longer on the toilet. Continue low-dose PPI and H2 dean to treat reflux. Patient denies any dysphagia or acid reflux. Follow-up in the office in 2 months, sooner if clinically necessary. Both patient and embedded software programmer are agreeable to plan of care and verbalizes understanding of instructions. They were given the opportunity to ask questions and all questions answered. Thank you for allowing me to participate in his care Coding Level of Care Code Est Pt Level 3 (14601) Diagnoses Slow transit constipation K59.01 Constipation type: slow transit constipation Other dysphagia R13.19 Dysphagia type: other dysphagia Gastroesophageal reflux disease without esophagitis K21.9 Esophagitis presence: without esophagitis Exocrine pancreatic insufficiency K86.81 Postprandial abdominal bloating R14.0 Time Spent (min) 30 Comment 20 minutes spent with patient and additional 10 minutes spent reviewing his records
[2024-02-01 08:57] VITALS: BP 154/83; PULSE 69; BMI 30.2
== END 2024-02-01 09:44 | disposition home or self-care (01) ==
PROVIDERS: PCP Internal Medicine; Visit Provider Nurse Practitioner Family
DX: K59.01 Slow transit constipation (principal); R13.19 Other dysphagia; K21.9 Gastro-esophageal reflux disease without esophagitis; K86.81 Exocrine pancreatic insufficiency; R14.0 Abdominal distension (gaseous)
CPT/HCPCS: 99213

== ENCOUNTER → 2024-02-01 08:49 | Outpatient (BNVA) | payer MEDICARE, MEDICAID, SELFPAY | PROVIDERS: PCP Internal Medicine; Visit Provider Nurse Practitioner Family | DX: K59.01 Slow transit constipation (principal); K21.9 Gastro-esophageal reflux disease without esophagitis; K86.81 Exocrine pancreatic insufficiency; R13.19 Other dysphagia; R14.0 Abdominal distension (gaseous) | CPT/HCPCS: 99212 ==

== ENCOUNTER 2024-03-07 10:01 | Outpatient (AMB) | payer MEDICARE, MEDICAID, SELFPAY ==
[2024-03-07 10:16] VITALS: BP 140/68; PULSE 61; O2SAT 99; BMI 30.4
--- NOTE | 2024-03-07 10:16 | MHC.PC.OV ---
Vital Signs 03/07/24 10:16 Height 4 ft 7 in Weight 131 lb BMI 30.4 BP 140/68 H Blood Pressure Location Lt brachial Position Sitting Pulse 61 Pulse Source Pulse Oximeter Pulse Oximetry (%) 99 Oxygen Delivery Method Room Air Intake Visit Reasons: pe Intake Note: Patient is here today for a physical. A1C 9.8% 02/08/24 Fish Agent Required: No Allergies Sulfa (Sulfonamide Antibiotics) [SULFA(SULFONAMIDE ANTIBIOTICS)] Allergy (Intermediate, Verified 03/07/24 10:17) ITCHING Medication List - Last Reconciled 03/07/24 by Boris Mcgowan MD acetaminophen (Tylenol) 650 mg (2 x 325 mg) PO Q6H PRN amlodipine 5 mg PO DAILY arformoterol 2 mL inhalation BID ascorbic acid (vitamin C) (Vitamin C) 500 mg PO DAILY aspirin 81 mg PO DAILY azithromycin 250 mg PO MOWEFR bisacodyl (Dulcolax (bisacodyl)) 10 mg (2 x 5 mg) PO BEDTIME cetirizine 10 mg PO DAILY PRN 90 days cholecalciferol (vitamin D3) 50 mcg PO DAILY ciclopirox 0.77% 1 appl topical BID citalopram 20 mg PO DAILY docusate sodium 200 mg (2 x 100 mg) PO BEDTIME famotidine (Pepcid) 20 mg PO BEDTIME ferrous sulfate 325 mg orally once a day at 4 pm; folic acid 0.8 mg PO DAILY glucagon HCl (Glucagon (HCl) Emergency Kit) 1 mg subcut ONCE PRN guar gum 1 tbsp PO DAILY insulin glargine (Lantus Solostar U-100 Insulin) 17 units subcut BEDTIME insulin lispro (Humalog KwikPen (U-100) Insulin) 1 sliding scale dose See Protocol subcut TIDAC ipratropium-albuterol 0.5 mg-3 mg(2.5 mg base)/3 mL 3 mL inhalation BID 30 days levothyroxine 100 mcg PO DAILY@0600 hpaosk-vggoehii-elccuip 24,000-76,000 -120,000 unit (Creon) 1 cap PO QID lorazepam (Ativan) 0.5 mg PO BEDTIME PRN metoprolol succinate ER 25 mg See Protocol PO DAILY nystatin 1 appl topical TID 30 days omeprazole 20 mg PO DAILY polyethylene glycol 3350 (Miralax) 17 grams PO DAILY simvastatin 10 mg PO BEDTIME sodium zirconium cyclosilicate (Lokelma) 5 grams orally 3 times a week( every SUN,SUN,Fridays); Mix with water. tamsulosin 0.8 mg (2 x 0.4 mg) PO DAILY@1700 90 days zinc oxide-cod liver oil 40 % (Desitin) 1 appl topical DAILY Tobacco use date assessed: 03/07/24 Dental Screening Dental Screen Date: 03/07/24 Did you have a dental visit in the last 12 months?: Yes Did you have a dental problem in the last 6 months where you did not have access to dental care?: No Was dental information given to patient?: Patient has dentist HPI pe HPI Details 43-year-old overweight male with down syndrome having diabetes mellitus hypertension idiopathic pulEND of JANUARY 28.8 AIC and the TSH elevated adnv advised to change the IRON to 4 pm [facility] Medical History (Updated 03/07/24 @ 11:14 by Boris cMgowan MD) Cellulitis Constipation Ascites Pericardial effusion Urethral meatal stenosis Mental and behavioral problem Renal insufficiency Hypercholesterolemia Down syndrome GERD (gastroesophageal reflux disease) BPH (benign prostatic hyperplasia) Hypothyroid Anxiety and depression Pseudoseizures Diabetes mellitus type 1 Surgical History Hx of cataract surgery Family History Father Medical history unknown Mother Medical history unknown Maternal Grandfather Prostate cancer Social History Household Members: None Household Members Other:: other residents and staff Housing: Other Housing Other:: retirement Alcohol intake: never Comment: 1:1 Sitter Patient Tobacco Use Status: Never used Tobacco e-Cigarette/Vaping Use: Never Used Second Hand Smoke Exposure: No service: No Current occupational status: disabled Cognitive needs: No Hearing needs: No Vision needs: No Questionnaire PHQ-9 Over the last 2 weeks, how often have you been bothered by any of the following problems? 1. Little interest or pleasure in doing things: more than half the days 2. Feeling down, depressed, or hopeless: several days 3. Trouble falling or staying asleep, or sleeping too much: nearly every day 4. Feeling tired or having little energy: not at all 5. Poor appetite or overeating: not at all 6. Feeling bad about yourself - or that you are a failure or have let yourself or your family down: several days 7. Trouble concentrating on things, such as reading the newspaper or watching television: several days 8. Moving or speaking so slowly that other people could have noticed. Or the opposite - being so fidgety or restless that you have been moving around a lot more than usual: not at all 9. Thoughts that you would be better off or of hurting yourself in some way: not at all Total score: 8 Depression Screening Interpretation: Negative Depression Screening Done: Yes 57971 - PHQ-9 Billing: Yes Source: Developed by Drs. Rhys Carvalho, Bernadette Flanagan, Sundeep Gee and colleagues, with an educational odilon from [employer]. Thrive Questionnaire Date Thrive assessed: 03/07/24 I am a: Patient What is your living situation today?: I have a steady place to live Within the past 12 months, did the food you bought not last and you didn't have the money to get more?: Never true Within the past 12 months, did you worry whether your food would run out before you got money to buy more?: Never true Do you have trouble paying for medicines?: No Do you have trouble getting transportation to medical appointments?: No Do you have trouble paying your heating and electricity bill?: No Do you have trouble taking care of your child, family member or friend?: No Do you have trouble with day-to-day activities such as bathing, preparing meals, shopping, managing finances, etc.?: No Are you currently unemployed and looking for a job?: No Are you interested in more education?: No Please select the resources that you would like help with: None Currently or been in a relationship where the following occur: No concerns reported THRIVE Score: 0 AUDIT C Alcohol Use Questionnaire (AUDIT-C) 1. How often do you have a drink containing alcohol?: Never 3. How often do you have six or more drinks on one occasion?: Never Total Score: 0 Score Reviewed/Action Taken: No GAGE-7 AMB Questionnaire GAGE-7 Date GAGE - 7 assessed: 03/07/24 Source: Developed by Drs. Rhys Carvalho, Sundeep Rodriguezoenke and colleagues, with an educational odilon from [employer]. Review of Systems Const Denies poor appetite and Denies weakness Eyes Denies no additional complaints ENT Reports Normal hearing present, Denies dizziness, Denies nasal congestion, Denies tinnitus and Denies sore throat Card Denies chest pain, Denies syncope, Denies rapid heart rate and Denies dyspnea Resp Denies cough and Denies dyspnea GI Denies change in stool character, Reports constipation, Denies diarrhea, Denies nausea and Denies vomiting Denies dysuria and Denies urinary frequency Neuro Reports Normal hearing present, Denies confusion, Denies dizziness, Denies syncope and Denies weakness Psych Denies confusion Physical exam (Primary Care) Vital Signs: Last Vital Signs Pulse 61 03/07/24 10:16 BP 140/68 H 03/07/24 10:16 Pulse Ox 99 03/07/24 10:16 Oxygen Delivery Method Room Air 03/07/24 10:16 BMI result Body Mass Index 30.4 Tobacco/Smoking Status: Tobacco use Status Tobacco use date assessed 03/07/24 03/07/24 10:17 Patient Tobacco Use Status Never used Tobacco 03/07/24 10:17 e-Cigarette/Vaping Use Never Used 03/07/24 10:17 PHQ-9: PHQ-9 Score PHQ-9: Total score 8 03/07/24 10:39 Depression Screening Interpretation: Negative Thrive Assessment: Date of Thrive Assessment Date Thrive assessed 03/07/24 03/07/24 10:17 Currently or been in a relationship where the following occur: No concerns reported Const General: No confusion Orientation/consciousness: No confusion HENMT Other: impacted cerumen bilateral Head: Yes normocephalic Ears: external ears normal Face and sinus: Yes normal facial exam Mouth: moist mucous membranes Throat: Yes tonsils normal Eyes Conjunctivae: conjunctivae normal Pupils: Equal, round and reactive pupils present and Pupil accommodation reflex normal Direct Ophthalmoscopy: normal light reflex Neck Neck: No lymphadenopathy Thyroid: Thyroid normal Chest Chest palpation & inspection: normal inspection of the chest Resp Effort & Inspection: normal respiratory effort and no audible wheezes Auscultation: clear to auscultation bilaterally, no crackles, no wheezes and lung sounds not diminished Cardio Rate: regular rate Rhythm: regular rhythm Peripheral pulses: radial pulses present and dorsalis pedis present GI Palpation (GI): no masses Auscultation: normal bowel sounds and normoactive bowel sounds Rectal Exam - Male: Yes deferred Skin General skin exam: no rashes or lesions noted Rashes: no rashes Neuro General: No confusion Cranial nerves: Yes Equal, round and reactive pupils present and Yes Normal hearing present Cognition (Neuro): normal cognition Gait exam (Neuro): Normal gait present Motor exam (neuro): 5/5 motor strength present throughout Deep tendon reflexes (DTR's): Right brachioradialis reflex intensity grade: 2+, Left brachioradialis reflex intensity grade: 2+, Right patellar reflex intensity grade: 2+ and Left patellar reflex intensity grade: 2+ Extrem General: No edema Assessment and Plan Assessment & Plan (1) Annual physical exam: Code(s): Z00.00 - Encounter for general adult medical examination without abnormal findings Plan: Patient is advised to eat healthy, keep well hydrated, keep active and have adequate sleep. (2) Diabetes mellitus type 1: Comment: DKA April 2018, Dr. Salcedo Code(s): E10.9 - Type 1 diabetes mellitus without complications Qualifiers: Diabetes mellitus complication status: with hyperglycemia Qualified Code(s): E10.65 - Type 1 diabetes mellitus with hyperglycemia Plan: Continue to follow-up with endocrinology. Decrease the amount of carbohydrate intake, pasta, bread, rice and potatoes are all sugar and that is aside from all the sweet stuff, remember that fruits are good but they are Sweet also. Hemoglobin A1c goal of less than 7.0 (3) Renal insufficiency: Code(s): N28.9 - Disorder of kidney and ureter, unspecified Plan: Patient follows up with Nephrology, avoid NSAIDs. Taken off ADRIANA inhibitor due to low blood pressure and hyperkalemia. (4) Anemia: Code(s): D64.9 - Anemia, unspecified Plan: Continue to monitor on vitamin-C and iron (5) Hypertension: Code(s): I10 - Essential (primary) hypertension Plan: Continue with blood pressure medication. Decrease salt intake and exercise amlodipine started by Nephrology on metoprolol 25 mg once a day (6) Hypercholesterolemia: Code(s): E78.00 - Pure hypercholesterolemia, unspecified Plan: Avoid fried foods, chicken skin, eggs, butter margarine, pastries and meat. Be it pork or beef they have a lot of cholesterol LDL goal of less than 100 and triglyceride of less than 150. (7) GERD (gastroesophageal reflux disease): Code(s): K21.9 - Gastro-esophageal reflux disease without esophagitis Qualifiers: Esophagitis presence: without esophagitis Qualified Code(s): K21.9 - Gastro-esophageal reflux disease without esophagitis Plan: Avoid the foods that causes that usually spicy foods, tomato products, juices, coffee, soda and foods that your sensitive to. After eating do not lie down, allow 3-4 hours before in lie down. And keep the head of bed above 30 degrees to avoid the acid from going up. (8) Hypothyroid: Code(s): E03.9 - Hypothyroidism, unspecified Qualifiers: Hypothyroidism type: acquired Qualified Code(s): E03.9 - Hypothyroidism, unspecified Plan: Continue with thyroid medication (9) Hyperkalemia: Code(s): E87.5 - Hyperkalemia Plan: Patient has been placed on Lokelma under Nephrology (10) Tinea cruris: Code(s): B35.6 - Tinea cruris Orders: Orders Free T4 (Free Thyroxine) Today E10.65 - Type 1 diabetes mellitus with hyperglycemia Thyroid Stimulating Hormone Today E10.65 - Type 1 diabetes mellitus with hyperglycemia Microalbumin, Random (w Creat) Today E10.65 - Type 1 diabetes mellitus with hyperglycemia, E11.65 - Type 2 diabetes mellitus with hyperglycemia Vitamin B12 and Folate Today E10.65 - Type 1 diabetes mellitus with hyperglycemia IRON PROFILE Today E10.65 - Type 1 diabetes mellitus with hyperglycemia AMB Hemoglobin A1c Today E08.40 - Diabetes mellitus due to underlying condition with diabetic neuropathy, unspecified Complete Blood Count Auto Diff Today E10.65 - Type 1 diabetes mellitus with hyperglycemia Comprehensive Met. Panel Today E10.65 - Type 1 diabetes mellitus with hyperglycemia Lipid Panel Today E10.65 - Type 1 diabetes mellitus with hyperglycemia, E78.00 - Pure hypercholesterolemia, unspecified Creatinine Urine Today E10.65 - Type 1 diabetes mellitus with hyperglycemia, E11.65 - Type 2 diabetes mellitus with hyperglycemia Ferritin Today E10.65 - Type 1 diabetes mellitus with hyperglycemia Reticulocyte Count Today E10.65 - Type 1 diabetes mellitus with hyperglycemia Medications: New nystatin 1 appl topical BID PRN 60 grams 0RF groin rash B35.6 - Tinea cruris Changed From ferrous sulfate 325 mg PO DAILY 30 tabs 12RF E10.65 - Type 1 diabetes mellitus with hyperglycemia To ferrous sulfate 325 mg orally once a day at 4 pm; 30 tabs 12RF E10.65 - Type 1 diabetes mellitus with hyperglycemia Coding Level of Care Code Est Pt Prev Care 40-64y(84703) Diagnoses Annual physical exam Z00.00 Type 1 diabetes mellitus with hyperglycemia E10.65 Diabetes mellitus complication status: with hyperglycemia Renal insufficiency N28.9 Anemia D64.9 Hypertension I10 Hypercholesterolemia E78.00 Gastroesophageal reflux disease without esophagitis K21.9 Esophagitis presence: without esophagitis Acquired hypothyroidism E03.9 Hypothyroidism type: acquired Hyperkalemia E87.5 Tinea cruris B35.6
== END 2024-03-07 11:27 | disposition home or self-care (01) ==
PROVIDERS: PCP Internal Medicine; Visit Provider Internal Medicine
DX: Z00.00 Encounter for general adult medical examination without abnormal findings (principal); E10.65 Type 1 diabetes mellitus with hyperglycemia; N28.9 Disorder of kidney and ureter, unspecified; D64.9 Anemia, unspecified; I10 Essential (primary) hypertension; E78.00 Pure hypercholesterolemia, unspecified; K21.9 Gastro-esophageal reflux disease without esophagitis; E03.9 Hypothyroidism, unspecified; E87.5 Hyperkalemia; B35.6 Tinea cruris
CPT/HCPCS: 99396

== ENCOUNTER 2024-03-13 08:53 | Outpatient (AMB) | payer MEDICARE, MEDICAID, SELFPAY ==
[2024-03-13 08:58] VITALS: BP 134/80; PULSE 66; BMI 30.9
--- NOTE | 2024-03-13 08:58 | A.OFFPC_ITS ---
Vital Signs 03/13/24 08:58 Height 4 ft 7 in Weight 133 lb BMI 30.9 BP 134/80 Blood Pressure Location Lt brachial Position Sitting Pulse 66 Pulse Source Pulse Oximeter Oxygen Delivery Method Room Air Intake Visit Reasons: Ear Irrigation Video Journalist Required: No Allergies Sulfa (Sulfonamide Antibiotics) [SULFA(SULFONAMIDE ANTIBIOTICS)] Allergy (Intermediate, Verified 03/13/24 08:58) ITCHING Tobacco use date assessed: 03/07/24 Dental Screening Dental Screen Date: 03/07/24 HPI Ear Irrigation HPI Details 43-year-old male with past medical histo ry of anxiety, hypothyroid, BPH, GERD, hypercholesterolemia, down syndrome, diabetes mellitus, hypertension last seen by Dr. Mcgowan coming in for cerumen impaction. Patient was recently seen for his annual physical and was found to have bilateral cerumen impaction. Patient is required to have yearly hearing test which can not be completed until cerumen is removed. No other concerns today. [facility] Medical History Cellulitis Constipation Ascites Pericardial effusion Urethral meatal stenosis Mental and behavioral problem Renal insufficiency Hypercholesterolemia Down syndrome GERD (gastroesophageal reflux disease) BPH (benign prostatic hyperplasia) Hypothyroid Anxiety and depression Pseudoseizures Diabetes mellitus type 1 Surgical History Hx of cataract surgery Family History Father Medical history unknown Mother Medical history unknown Maternal Grandfather Prostate cancer Social History Household Members: None Household Members Other:: other residents and staff Housing: Other Housing Other:: intermediate Alcohol intake: never Comment: 1:1 Sitter Patient Tobacco Use Status: Never used Tobacco e-Cigarette/Vaping Use: Never Used Second Hand Smoke Exposure: No service: No Current occupational status: disabled Cognitive needs: No Hearing needs: No Vision needs: No Questionnaire PHQ-9 Over the last 2 weeks, how often have you been bothered by any of the following problems? 1. Little interest or pleasure in doing things: more than half the days 2. Feeling down, depressed, or hopeless: several days 3. Trouble falling or staying asleep, or sleeping too much: nearly every day 4. Feeling tired or having little energy: not at all 5. Poor appetite or overeating: not at all 6. Feeling bad about yourself - or that you are a failure or have let yourself or your family down: several days 7. Trouble concentrating on things, such as reading the newspaper or watching television: several days 8. Moving or speaking so slowly that other people could have noticed. Or the opposite - being so fidgety or restless that you have been moving around a lot more than usual: not at all 9. Thoughts that you would be better off or of hurting yourself in some way: not at all Total score: 8 Depression Screening Interpretation: Negative Depression Screening Done: Yes 84650 - PHQ-9 Billing: Yes Source: Developed by Drs. Rhys Carvalho, Bernadette Flanagan, Sundeep Gee and colleagues, with an educational odilon from [employer]. Thrive Questionnaire Date Thrive assessed: 03/07/24 I am a: Patient What is your living situation today?: I have a steady place to live Within the past 12 months, did the food you bought not last and you didn't have the money to get more?: Never true Within the past 12 months, did you worry whether your food would run out before you got money to buy more?: Never true Do you have trouble paying for medicines?: No Do you have trouble getting transportation to medical appointments?: No Do you have trouble paying your heating and electricity bill?: No Do you have trouble taking care of your child, family member or friend?: No Do you have trouble with day-to-day activities such as bathing, preparing meals, shopping, managing finances, etc.?: No Are you currently unemployed and looking for a job?: No Are you interested in more education?: No Please select the resources that you would like help with: None Currently or been in a relationship where the following occur: No concerns reported THRIVE Score: 0 AUDIT C Alcohol Use Questionnaire (AUDIT-C) 1. How often do you have a drink containing alcohol?: Never 3. How often do you have six or more drinks on one occasion?: Never Total Score: 0 Score Reviewed/Action Taken: No GAGE-7 AMB Questionnaire GAGE-7 Date GAGE - 7 assessed: 03/07/24 Source: Developed by Drs. Rhys Carvalho, Bernadette Flanagan, Sundeep Gee and colleagues, with an educational odilon from [employer]. Review of Systems Const Reports no additional complaints Eyes Reports no additional complaints ENT Details: Difficulty hearing and excessive wax Card Reports no additional complaints Resp Reports no additional complaints GI Reports no additional complaints Reports no additional complaints Musc Reports no additional complaints Physical exam (Primary Care) Vital Signs: Last Vital Signs Pulse 66 03/13/24 08:58 BP 134/80 03/13/24 08:58 Oxygen Delivery Method Room Air 03/13/24 08:58 BMI result Body Mass Index 30.9 Tobacco/Smoking Status: Tobacco use Status Tobacco use date assessed 03/07/24 03/13/24 08:59 Patient Tobacco Use Status Never used Tobacco 03/13/24 08:59 e-Cigarette/Vaping Use Never Used 03/13/24 08:59 PHQ-9: PHQ-9 Score PHQ-9: Total score 8 03/13/24 09:20 Depression Screening Interpretation: Negative Thrive Assessment: Date of Thrive Assessment Date Thrive assessed 03/07/24 03/13/24 08:59 Currently or been in a relationship where the following occur: No concerns reported Const General: cooperative, healthy appearing, comfortable and no acute distress Orientation/consciousness: patient oriented x3 HENMT Head: Yes normocephalic Ears: hearing grossly normal bilaterally and Abnormal EAC present cerumen impaction bilateral General nose exam: Normal external nose present Eyes General: appearance normal, both eyes and all related structures Conjunctivae: conjunctivae normal Neck Neck: Yes full ROM and Yes no lymphadenopathy Resp Effort & Inspection: normal respiratory effort Cardio Rate: regular rate Rhythm: regular rhythm Skin General skin exam: no rashes or lesions noted Neuro General: patient oriented x3 Gait exam (Neuro): Normal gait present Extrem General: Yes normal to inspection, Yes full ROM and No edema Psych Affect: normal affect Attitude: cooperative Insight: Good insight present (Psych) Judgement: Good judgement present (Psych) Office Procedures Cerumen Removal From which ear canal was the cerumen removed: bilateral Removal: irrigation and otoscope w/curette Notes: patient tolerated procedure well, no complications and ear canal clear [id number] Irrigation/Lavage Assessment and Plan Assessment & Plan (1) Impacted cerumen of both ears: Code(s): H61.23 - Impacted cerumen, bilateral Plan: Cerumen removed bilaterally with curette and irrigation and TMs were visualized as intact with well aerated middle ear spaces. Patient is now cleared to go for hearing test. Follow up as needed. Plan This note was constructed using voice recognition software. While every effort has been made to ensure accuracy and solar power installer, still areas may have been included sometimes these areas may affect the content or meeting of the given symptoms. Total time spent caring for the patient today was 20 minutes. This includes time spent before the visit reviewing the chart, time spent during the visit, and time spent after the visit and documentation. Orders: Referrals Speech and Hearing Referral H91.90 - Unspecified hearing loss, unspecified ear Coding Level of Care Code Est Pt Level 3 (75979) Diagnoses Impacted cerumen of both ears H61.23 CPT Codes Office Procedure - CPT: 19837-Fae Irrigation/Lavage ([id number])
== END 2024-03-13 09:35 | disposition home or self-care (01) ==
PROVIDERS: PCP Internal Medicine
DX: H61.23 Impacted cerumen, bilateral (principal)
CPT/HCPCS: 69210; 99213

== ENCOUNTER 2024-03-17 07:20 | Outpatient (REF) | payer MEDICARE, MEDICAID, SELFPAY ==
[2024-03-17 07:42] LABS: MANUAL DIFF FLAG NO
[2024-03-17 07:47] LABS: Basophils Absolute Auto 0.1 X10*3/uL (0.0-0.2); Basophils Percent Auto 1.5 % (0-2); Eosinophils Absolute Auto 0.4 X10*3/uL (0.0-0.4); Hematocrit 37.2 % (42.0-52.0); Hemoglobin 12.7 g/dl (14.0-18.0); Imm Gran Abs Auto 0.02 X10*3/uL (0.00-0.03); Imm Gran Pct Auto 0.3 % (0.0-0.4); Immature Retic Fraction 19.5 % (2.3-13.4); Lymphocytes Absolute Auto 0.9 X10*3/uL (1.2-4.9); Lymphocytes Percent Auto 15.2 % (20-40); Mean Corpuscular HGB Conc 34.1 g/dl (31.0-36.0); Mean Corpuscular Hemoglobin 31.1 pg (27.0-33.0); Mean Platelet Volume 9.2 fL (9.4-12.4); Monocytes Absolute Auto 0.4 X10*3/uL (0.1-1.2); Monocytes Percent Auto 7.1 % (2-11); Neutrophils Absolute Auto 4.2 x10*3/uL (2.0-8.3); Neutrophils Percent Auto 69.9 % (45-73); Platelet Count 345 X10*3/uL (160-400); Red Blood Count 4.09 X10*6/uL (4.60-5.80); Red Cell Distribution Width 13.9 % (11.0-16.0); Retic HGB Equivalent 35.2 pg (30.0-35.0); Reticulocyte Percent 2.7 % (0.5-1.8); Reticulocytes Absolute 0.111 X10*6/uL (0.026-0.095); White Blood Count 6.1 X10*3/uL (4.8-10.8)
[2024-03-17 08:26] LABS: Alanine Aminotransferase 18 U/L (0-40); Albumin Level 2.3 g/dL (3.5-5.0); Alkaline Phosphatase 79 U/L (39-117); Anion Gap 9 (12-20); Aspartate Amino Transferase 15 U/L (5-37); Bilirubin Total 0.2 mg/dL (0.0-1.0); Blood Urea Nitrogen 44 mg/dL (9-16); Calcium 8.2 mg/dL (8.4-10.2); Carbon Dioxide 28 mmol/L (22-29); Chloride 102 mmol/L (96-108); Cholesterol 227 mg/dL (<200); Estimated Glomerular Filt Rate 36; Glucose Random 353 mg/dL (60-115); HDL Cholesterol 50 mg/dL (>40); Iron 58 mcg/dL (45-160); LDL Cholesterol Calculated 137 mg/dL (<100); Percent Iron Saturation 37 % (15-50); Potassium 5.4 mmol/L (3.3-5.1); Sodium 134 mmol/L (135-145); Total Iron Binding Capacity 156 mcg/dL (228-428); Total Protein 5.4 g/dL (6.5-8.0); Triglycerides 200 mg/dL (<150); Unsaturated Iron Binding 98 ug/dL
[2024-03-17 08:38] LABS: Ferritin 372 ng/mL (20-250); Free T4 (Free Thyroxine) 0.82 ng/dL (0.71-1.85); Thyroid Stimulating Hormone 8.38 uIU/mL (0.32-4.0)
[2024-03-17 09:03] LABS: Folate > 20.0 ng/mL (> or = 4.0); Vitamin B12 451 pg/mL (200-900)
[2024-03-17 10:41] LABS: Creatinine Urine 50.66 mg/dL
[2024-03-17 11:35] LABS: Microalbum/Creatinine Ratio Ur 3947.8 ug/mg cr (<30); Microalbumin Urine > 2000.0 mg/L
== END 2024-03-17 07:21 | disposition home or self-care (01) ==
LOC: HO.LAB 07:20
PROVIDERS: PCP Internal Medicine; Visit Provider Internal Medicine
DX: E10.65 Type 1 diabetes mellitus with hyperglycemia (principal); E78.00 Pure hypercholesterolemia, unspecified
CPT/HCPCS: 36415; 80053; 80061; 82043; 82570; 82607; 82728; 82746; 83540; 84439; 84443; 85025; 85045

== ENCOUNTER 2024-03-17 08:52 | Outpatient (REF) | payer MEDICARE, MEDICAID, SELFPAY | END 2024-03-17 08:53 | disposition home or self-care (01) | LOC: HO.SH 08:52 | DX: Z01.118 Encounter for examination of ears and hearing with other abnormal findings (principal); H90.3 Sensorineural hearing loss, bilateral | CPT/HCPCS: 92552; 92556; 92567 ==

== ENCOUNTER 2024-04-16 09:38 | Outpatient (AMB) | payer MEDICARE, MEDICAID, SELFPAY ==
[2024-04-16 09:42] VITALS: BP 140/68; PULSE 64; O2SAT 97; BMI 30.7
--- NOTE | 2024-04-16 09:42 | A.OFFPC_ITS ---
Vital Signs 04/16/24 09:42 Height 4 ft 7 in Weight 132 lb BMI 30.7 BP 140/68 H Blood Pressure Location Lt brachial Position Sitting Pulse 64 Pulse Source Pulse Oximeter Pulse Oximetry (%) 97 Oxygen Delivery Method Room Air Intake Visit Reasons: R Hand Pain Hotel Maintenance Engineer Required: No Accompanied by: business relations manager Allergies Sulfa (Sulfonamide Antibiotics) [SULFA(SULFONAMIDE ANTIBIOTICS)] Allergy (Intermediate, Verified 04/16/24 09:43) ITCHING Tobacco use date assessed: 03/07/24 Dental Screening Dental Screen Date: 03/07/24 HPI R Hand Pain HPI Details 43-year-old male with down syndrome havi ng hypothyroidism BPH GERD hypercholesterolemia idiopathic pulmonary fibrosis neurogenic bladder hypertension diabetes mellitus type 1 coming in for follow-up. Last seen in February for impacted cerumen. Patient is up-to-date with Podiatry. Patient is also being followed up by Endocrinology. 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 Avoid nephrotoxic. Low-potassium diet placed on Lokelma 5 g 3 times a week blood work needed. Patient was given the option of increasing amlodipine to 5 mg once a day. timing of med changed and will need repeat blood work. complains of R thumb pain Deny fall or trauma and just 1 joint PFSH Medical History Cellulitis Constipation Ascites Pericardial effusion Urethral meatal stenosis Mental and behavioral problem Renal insufficiency Hypercholesterolemia Down syndrome GERD (gastroesophageal reflux disease) BPH (benign prostatic hyperplasia) Hypothyroid Anxiety and depression Pseudoseizures Diabetes mellitus type 1 Surgical History Hx of cataract surgery Family History Father Medical history unknown Mother Medical history unknown Maternal Grandfather Prostate cancer Social History Household Members: None Household Members Other:: other residents and staff Housing: Other Housing Other:: [facility] Alcohol intake: never Comment: 1:1 Sitter Patient Tobacco Use Status: Never used Tobacco e-Cigarette/Vaping Use: Never Used Second Hand Smoke Exposure: No service: No Current occupational status: disabled Cognitive needs: No Hearing needs: No Vision needs: No Questionnaire Thrive Questionnaire Date Thrive assessed: 03/07/24 Are you currently unemployed and looking for a job?: No GAGE-7 AMB Questionnaire GAGE-7 Date GAGE - 7 assessed: 03/07/24 Source: Developed by Drs. Rhys Carvalho, Bernadette Flanagan, Sundeep Gee and colleagues, with an educational odilon from [employer]. Physical exam (Primary Care) Vital Signs: Last Vital Signs Pulse 64 04/16/24 09:42 BP 140/68 H 04/16/24 09:42 Pulse Ox 97 04/16/24 09:42 Oxygen Delivery Method Room Air 04/16/24 09:42 BMI result Body Mass Index 30.7 Tobacco/Smoking Status: Tobacco use Status Tobacco use date assessed 03/07/24 04/16/24 09:47 Patient Tobacco Use Status Never used Tobacco 04/16/24 09:47 e-Cigarette/Vaping Use Never Used 04/16/24 09:47 Thrive Assessment: Date of Thrive Assessment Date Thrive assessed 03/07/24 04/16/24 09:47 Const General: alert; No acute distress Eyes Conjunctivae: conjunctivae normal Resp Auscultation: clear to auscultation bilaterally Cardio Rate: regular rate Rhythm: regular rhythm GI Inspection: Yes normal to inspection Extrem Other: R metatarsal pain no redness, pain on palpation General: No edema Results AMB Hemoglobin A1c AMB Hemoglobin A1c 9.4 % Last Edit by NING Mcwilliams on 04/16/24 10:0 0 Assessment and Plan Assessment & Plan (1) Diabetes mellitus type 1: Comment: DKParvez April 2018, Dr. Salcedo Code(s): E10.9 - Type 1 diabetes mellitus without complications Qualifiers: Diabetes mellitus complication status: with hyperglycemia Qualified Code(s): E10.65 - Type 1 diabetes mellitus with hyperglycemia Plan: Decrease the amount of carbohydrate intake, pasta, bread, rice and potatoes are all sugar and that is aside from all the sweet stuff, remember that fruits are good but they are Sweet also. Hemoglobin A1c goal of less than 6.5 patient is being followed up by Endocrinology on Lantus and Humalog (2) CKD (chronic kidney disease): Code(s): N18.9 - Chronic kidney disease, unspecified Plan: Patient is being followed up by Nephrology and will continue to monitor. (3) Anemia: Code(s): D64.9 - Anemia, unspecified Plan: Continue to monitor blood count (4) Hypercholesterolemia: Code(s): E78.00 - Pure hypercholesterolemia, unspecified Plan: Avoid fried foods, chicken skin, eggs, butter margarine, pastries and meat. Be it pork or beef they have a lot of cholesterol concern that the cholesterol went up on simvastatin 10 mg at bedtime (5) GERD (gastroesophageal reflux disease): Code(s): K21.9 - Gastro-esophageal reflux disease without esophagitis Qualifiers: Esophagitis presence: without esophagitis Qualified Code(s): K21.9 - Gastro-esophageal reflux disease without esophagitis Plan: Avoid the foods that causes that usually spicy foods, tomato products, juices, coffee, soda and foods that your sensitive to. After eating do not lie down, allow 3-4 hours before in lie down. And keep the head of bed above 30 degrees to avoid the acid from going up. (6) Hypothyroid: Code(s): E03.9 - Hypothyroidism, unspecified Qualifiers: Hypothyroidism type: acquired Qualified Code(s): E03.9 - Hypothyroidism, unspecified Plan: Recent test shows that the TSH changed. Will repeat testing reminded the on thyroid medication (7) Pain of right thumb: Code(s): M79.644 - Pain in right finger(s) Orders: Orders Lipid Panel Today E78.00 - Pure hypercholesterolemia, unspecified, N28.9 - Disorder of kidney and ureter, unspecified Comprehensive Met. Panel Today N28.9 - Disorder of kidney and ureter, unspecified AMB Hemoglobin A1c Today E10.65 - Type 1 diabetes mellitus with hyperglycemia Free T4 (Free Thyroxine) Today N28.9 - Disorder of kidney and ureter, unspecified XR hand RT 2V Today M79.644 - Pain in right finger(s) Coding Level of Care Code Est Pt Level 4 (34323) Complex EM visit Add On G2211 Diagnoses Type 1 diabetes mellitus with hyperglycemia E10.65 Diabetes mellitus complication status: with hyperglycemia CKD (chronic kidney disease) N18.9 Anemia D64.9 Hypercholesterolemia E78.00 Gastroesophageal reflux disease without esophagitis K21.9 Esophagitis presence: without esophagitis Acquired hypothyroidism E03.9 Hypothyroidism type: acquired Pain of right thumb M79.649
== END 2024-04-16 10:12 | disposition home or self-care (01) ==
PROVIDERS: PCP Internal Medicine; Visit Provider Internal Medicine
DX: E10.65 Type 1 diabetes mellitus with hyperglycemia (principal); N18.9 Chronic kidney disease, unspecified; D64.9 Anemia, unspecified; E78.00 Pure hypercholesterolemia, unspecified; K21.9 Gastro-esophageal reflux disease without esophagitis; E03.9 Hypothyroidism, unspecified; M79.644 Pain in right finger(s)

== ENCOUNTER → 2024-04-16 09:38 | Outpatient (BNVA) | payer MEDICARE, MEDICAID, SELFPAY | LOC: CF 10:29 | PROVIDERS: PCP Internal Medicine; Visit Provider Internal Medicine | DX: E10.65 Type 1 diabetes mellitus with hyperglycemia (principal); N18.9 Chronic kidney disease, unspecified; D64.9 Anemia, unspecified; E78.00 Pure hypercholesterolemia, unspecified; M79.644 Pain in right finger(s); K21.9 Gastro-esophageal reflux disease without esophagitis; E03.9 Hypothyroidism, unspecified | CPT/HCPCS: 83036; 99212 ==

== ENCOUNTER 2024-04-17 09:53 | Outpatient (REF) | payer MEDICARE, MEDICAID, SELFPAY ==
--- NOTE | ~2024-04-17 | XR_ITS ---
EXAMINATION: XR HAND, RIGHT CLINICAL INFORMATION: M79.644 - Pain in right finger(s) COMPARISON: None available. TECHNIQUE: PA, lateral, and oblique views of the right hand. FINDINGS: There is normal bone mineralization. There is no fracture, dislocation, or suspicious bone lesion. There is normal alignment of the hand and wrist. There are no findings of arthritis, periarticular osteopenia, or erosions. Carpal bones are intact and normally aligned. No soft tissue abnormality. XR/XR hand RT min 3V IMPRESSION: Normal right hand. Electronically signed by: Juan Wood MD 06/24/2024 02:08 PM [facility] [place]
== END 2024-04-17 09:54 | disposition home or self-care (01) ==
LOC: HO.HMGCX 09:53
PROVIDERS: PCP Internal Medicine; Visit Provider Internal Medicine
DX: M79.644 Pain in right finger(s) (principal)
CPT/HCPCS: 73130

== ENCOUNTER → 2024-04-17 09:59 | Outpatient (BNV) | payer MEDICARE, MEDICAID, SELFPAY | PROVIDERS: PCP Internal Medicine; Visit Provider Radiology Diagnostic Radiology | DX: M79.644 Pain in right finger(s) (principal) | CPT/HCPCS: 73130 ==

== ENCOUNTER 2024-04-22 14:03 | Outpatient (AMB) | payer MEDICARE, MEDICAID, SELFPAY ==
[2024-04-22 14:10] VITALS: BP 162/74; PULSE 62; O2SAT 99; BMI 31.4
--- NOTE | 2024-04-22 14:10 | A.OFFVIS_ITS ---
Vital Signs 04/22/24 14:10 Height 4 ft 7 in Weight 134 lb 14.766 oz BMI 31.4 BP 162/74 H Blood Pressure Location Rt brachial Position Sitting Pulse 62 Pulse Source Pulse Oximeter Pulse Oximetry (%) 99 Oxygen Delivery Method Room Air Intake Visit Reasons: 2 month follow up Intake Note: Bernard presents in office today for a scheduled 2 mos FUV. CC; This is a progress FUV for Bernard today. Pt rep states that they have still been dealing with constipation concerns intermittently. Pt reports he has been using the bathroom more than he had been at his last visit, but still not as much as he believes he should be. Pt also reports having pain and that it hurts him when he goes. Pt states that it hurts in his rectal area when he has a BM. Rep does report that they are keeping a bowel chart at the facility. Pt does cry out in pain sometimes when having BM. Rep was inquiring with regard to a PRN suppository to assist the pt with difficulties. Pt rep does report that he has been noticing less bloating and abd distention lately. Pt rep also reports that his thyroid labs have been very abnormal lately and are being monitored by the facility staff. Mri Manager Required: No Accompanied by: Other Relationship Allergies Sulfa (Sulfonamide Antibiotics) [SULFA(SULFONAMIDE ANTIBIOTICS)] Allergy (Intermediate, Verified 04/22/24 14:15) ITCHING HPI HPI 2 month follow up: Details: LAST VISIT Constipation Dysphagia GERD (gastroesophageal reflux disease) Exocrine pancreatic insufficiency Postprandial abdominal bloating Plan Dulcolax and Colace. Patient can start taking MiraLax in the morning on as needed basis. Continue Creon as it helps him with bloating. Patient was coached to sit longer on the toilet. Continue low-dose PPI and H2 dean to treat reflux. Patient denies any dysphagia or acid reflux. Follow-up in the office in 2 months, sooner if clinically necessary. Both patient and computer help desk representative are agreeable to plan of care and verbalizes understanding of instructions. They were given the opportunity to ask questions and all questions answered. ? TODAY'S VISIT Patient is here today for follow-up. Patient reports that he is able to move his bowels little better, however he continues to have abdominal pain and bloating. Bloating decreased, however still has cramping. Rectal discomfort when trying to push to have a bowel movement. Patient's showcase maker admits that patient does not have patient has to sit on the toilet to have a bowel movement. He tries to vickers and push. Currently patient is taking Dulcolax and Colace. Takes MiraLax in the morning. Patient is computer help desk representative reported that patient's TSH was elevated over 8. That was reported to his home attendant. Patient was taking levothyroxine together with iron. Just recently started taking levothyroxine 1st thing in the morning on an empty stomach. Patient has lab work to be repeated tomorrow. Possibility that this could be contributing to his constipation. Patient is not drinking enough water. Patient himself and computer help desk representative admits to that. Patient denies any dyspepsia, dysphagia or odynophagia. [facility] Medical History Cellulitis Constipation Ascites Pericardial effusion Urethral meatal stenosis Mental and behavioral problem Renal insufficiency Hypercholesterolemia Down syndrome GERD (gastroesophageal reflux disease) BPH (benign prostatic hyperplasia) Hypothyroid Anxiety and depression Pseudoseizures Diabetes mellitus type 1 Surgical History Hx of cataract surgery Family History Father Medical history unknown Mother Medical history unknown Maternal Grandfather Prostate cancer Social History Household Members: None Household Members Other:: other residents and staff Housing: Other Housing Other:: correction Alcohol intake: never Comment: 1:1 Sitter Patient Tobacco Use Status: Never used Tobacco e-Cigarette/Vaping Use: Never Used Second Hand Smoke Exposure: No service: No Current occupational status: disabled Cognitive needs: No Hearing needs: No Vision needs: No Review of Systems Const Denies weight gain and Denies weight loss ENT Reports no additional complaints, Denies dysphagia and Denies odynophagia Card Reports no additional complaints Resp Reports no additional complaints GI Denies abdominal pain, Denies belching, Denies melena, Denies bloating, Denies change in bowel habits, Reports constipation, Denies dysphagia, Denies excessive flatus, Denies dyspepsia, Denies heartburn, Denies diarrhea, Denies loose stools, Denies nausea, Denies odynophagia and Denies vomiting Reports no additional complaints Musc Reports no additional complaints Neuro Reports no additional complaints Psych Reports no additional complaints Endo Reports no additional complaints Physical Exam Vital Signs: Last Vital Signs Pulse 62 04/22/24 14:10 BP 162/74 H 04/22/24 14:10 Pulse Ox 99 04/22/24 14:10 Oxygen Delivery Method Room Air 04/22/24 14:10 BMI result Body Mass Index 31.4 Const General: healthy appearing, no acute distress and well developed Nutritional Appearance: well nourished Orientation/consciousness: oriented to person Resp Effort & Inspection: normal respiratory effort, able to speak in complete sentences, no tracheal deviation and symmetric chest movement Auscultation: clear to auscultation bilaterally Cardio Rate: regular rate Heart sounds: S1 normal heart sound present and S2 normal heart sound present GI Inspection: Yes normal to inspection and No distended Palpation (GI): Soft to palpation, not firm, nontender and No hepatosplenomegaly present Auscultation: normal bowel sounds General: Yes no CVA tenderness Back/Spine/Pelvis Back: no CVA tenderness Skin General skin exam: elasticity normal, turgor normal and dry skin Neuro General: oriented to person Assessment & Plan Assessment & Plan (1) Constipation: Code(s): K59.00 - Constipation, unspecified Category: Medical Qualifiers: Constipation type: chronic idiopathic constipation Qualified Code(s): K59.04 - Chronic idiopathic constipation (2) GERD (gastroesophageal reflux disease): Code(s): K21.9 - Gastro-esophageal reflux disease without esophagitis Category: Medical Qualifiers: Esophagitis presence: without esophagitis Qualified Code(s): K21.9 - Gastro-esophageal reflux disease without esophagitis (3) Constipation: Code(s): K59.00 - Constipation, unspecified Category: Medical Qualifiers: Constipation type: slow transit constipation Qualified Code(s): K59.01 - Slow transit constipation (4) Exocrine pancreatic insufficiency: Code(s): K86.81 - Exocrine pancreatic insufficiency (5) Postprandial abdominal bloating: Code(s): R14.0 - Abdominal distension (gaseous) Plan Increase fluid intake and activity to promote better bowel motility. Patient will continue taking Dulcolax and Colace in the evening and MiraLax in the morning. May use p.r.n. suppository if no bowel movements in 2-3 days. Follow- up in 3 months, sooner on as needed basis. Both patient and computer help desk representative are agre eable to this plan and verbalizes understanding of instructions. They were given the opportunity to ask questions and all questions answered. Thank you for allowing me to participate in his care Medications: New bisacodyl (Dulcolax (bisacodyl)) 10 mg [place] DAILY PRN 30 ea 0RF constipation Coding Level of Care Code Est Pt Level 3 (07237) Diagnoses Chronic idiopathic constipation K59.04 Constipation type: chronic idiopathic constipation Gastroesophageal reflux disease without esophagitis K21.9 Esophagitis presence: without esophagitis Exocrine pancreatic insufficiency K86.81 Postprandial abdominal bloating R14.0 Time Spent (min) 25 Comment 15 minutes spent with patient and additional 10 minutes spent reviewing his records
== END 2024-04-22 14:34 | disposition home or self-care (01) ==
PROVIDERS: PCP Internal Medicine; Visit Provider Nurse Practitioner Family
DX: K59.04 Chronic idiopathic constipation (principal); K21.9 Gastro-esophageal reflux disease without esophagitis; K86.81 Exocrine pancreatic insufficiency; R14.0 Abdominal distension (gaseous); K59.01 Slow transit constipation
CPT/HCPCS: 99213

== ENCOUNTER → 2024-04-22 14:03 | Outpatient (BNVA) | payer MEDICARE, MEDICAID, SELFPAY | PROVIDERS: PCP Internal Medicine; Visit Provider Nurse Practitioner Family | DX: K59.04 Chronic idiopathic constipation (principal); K21.9 Gastro-esophageal reflux disease without esophagitis; K59.01 Slow transit constipation; K86.81 Exocrine pancreatic insufficiency; R14.0 Abdominal distension (gaseous) | CPT/HCPCS: 99212 ==

== ENCOUNTER 2024-04-23 07:02 | Outpatient (REF) | payer MEDICARE, MEDICAID, SELFPAY ==
[2024-04-23 08:20] LABS: Creatinine Urine 76.67 mg/dL
[2024-04-23 08:25] LABS: Alanine Aminotransferase 19 U/L (0-40); Albumin Level 2.2 g/dL (3.5-5.0); Alkaline Phosphatase 79 U/L (39-117); Anion Gap 11 (12-20); Aspartate Amino Transferase 12 U/L (5-37); Bilirubin Total 0.2 mg/dL (0.0-1.0); Blood Urea Nitrogen 41 mg/dL (9-16); Calcium 8.1 mg/dL (8.4-10.2); Carbon Dioxide 26 mmol/L (22-29); Chloride 106 mmol/L (96-108); Cholesterol 206 mg/dL (<200); Estimated Glomerular Filt Rate 34; Glucose Random 273 mg/dL (60-115); HDL Cholesterol 40 mg/dL (>40); LDL Cholesterol Calculated 139 mg/dL (<100); Potassium 4.7 mmol/L (3.3-5.1); Sodium 138 mmol/L (135-145); Total Protein 5.4 g/dL (6.5-8.0); Triglycerides 138 mg/dL (<150)
[2024-04-23 08:44] LABS: Free T4 (Free Thyroxine) 0.86 ng/dL (0.71-1.85); Thyroid Stimulating Hormone 4.69 uIU/mL (0.32-4.0)
== END 2024-04-23 07:03 | disposition home or self-care (01) ==
LOC: HO.LAB 07:02
PROVIDERS: PCP Internal Medicine; Visit Provider Internal Medicine
DX: E03.9 Hypothyroidism, unspecified (principal); E10.65 Type 1 diabetes mellitus with hyperglycemia; N28.9 Disorder of kidney and ureter, unspecified; E78.00 Pure hypercholesterolemia, unspecified
CPT/HCPCS: 36415; 80053; 80061; 82570; 84439; 84443

== ENCOUNTER 2024-04-24 13:35 | Outpatient (AMB) | payer MEDICARE, MEDICAID, SELFPAY ==
--- NOTE | 2024-04-24 13:48 | A.OFFVIS_ITS ---
Intake Visit Reasons: 6 month follow up/ PVR Intake Note: Patient presents today for follow up on: urethral stenosis, neurogenic bladder, BPH Urology Medications: Tamsulosin Antibiotic Allergy: Sulfa Antibiotics Blood Thinner: Aspirin Pharmacy: [facility] PVR: 99ml's End Maker Required: No Accompanied by: Unknown Allergies Sulfa (Sulfonamide Antibiotics) [SULFA(SULFONAMIDE ANTIBIOTICS)] Allergy (Intermediate, Verified 04/24/24 14:09) ITCHING HPI Comments Details: Bernard is a very pleasant 43 year old male patient of Dr Mcgowan who was accompanied by intelligence group supervisor. He has a past medical history of cellulitis, constipation, ascites, pericardial effusion, urethral meatal stenosis, mental and behavioral problem, renal insufficiency, hypercholesteremia, Down syndrome, GERD, hypothyroidism, anxiety, depression, pseudoseizures, and type 1 diabetes. He presents to the office today for follow-up of his lower urinary tract sympto ms and incomplete bladder emptying. Initially upon assessment patient denies any bothersome urinary issues or concerns. However shortly after started reporting episodes of dysuria with urination. ship manager denies patient to report any bothersome urinary issues or concerns. In office urinalysis results reviewed with the patient today negative leukocytes negative nitrates however 3+ proteinuria. In discussion with the program admin patient does follow-up with Nephrology here at [facility]. In assessment of the patient today the penis is circumcised with no lesions, open areas, and or redness noted to the penis/scrotum/and or testicles. In office urinalysis results reviewed with the patient today. PVR 99 mL. He otherwise offers no other issues or concerns at this time. Balanitis/Phimosis: He presents with a complaint of meatal stenosis. The problem has been treated in 2012 as result of catheterization. Had remained with an indwelling catheter for a number of years. Removed when he moved to a shared home. Associated problems include diabetes Yes Could use steroid cream if need be. At this point meatal area is functional. Lower Urinary Tract Symptoms: Current visit is for further evaluation of, lower urinary tract symptoms, predominate obstructive symptoms. Current treatment includes medication, alpha dean - tamsulosin Prostate Symptom Score Mild (0-8), Bother 2. Symptoms include incomplete emptying, weak stream, nocturia (>2), and are improving / , weak stream, and are improving. Prior Prostate Score moderate. Testing at next visit will include bladder scan, Prostate Symptom Score. Treatment plan continue with current medications PFSH Medical History (Reviewed 04/24/24 @ 14:11 by Marisela Dos Santos [facility]) Cellulitis Constipation Ascites Pericardial effusion Urethral meatal stenosis Mental and behavioral problem Renal insufficiency Hypercholesterolemia Down syndrome GERD (gastroesophageal reflux disease) BPH (benign prostatic hyperplasia) Hypothyroid Anxiety and depression Pseudoseizures Diabetes mellitus type 1 Surgical History Hx of cataract surgery Family History Father Medical history unknown Mother Medical history unknown Maternal Grandfather Prostate cancer Social History Household Members: None Household Members Other:: other residents and staff Housing: Other Housing Other:: senior living Alcohol intake: never Comment: 1:1 Sitter Patient Tobacco Use Status: Never used Tobacco e-Cigarette/Vaping Use: Never Used Second Hand Smoke Exposure: No service: No Current occupational status: disabled Cognitive needs: No Hearing needs: No Vision needs: No Review of Systems Const Unobtainable due to mental condition Physical Exam Const General: cooperative, comfortable, no acute distress, well developed, alert and awake Orientation/consciousness: oriented to person Limitations: no limitations HEENT Head: Yes normal to inspection Ears: hearing grossly normal bilaterally Neck Neck: Yes normal visual inspection and Yes trachea midline Chest Chest palpation & inspection: normal inspection of the chest Resp Effort & Inspection: normal respiratory effort and able to speak in complete sentences Cardio Rate: regular rate GI Inspection: Yes normal to inspection General: Yes no CVA tenderness Male General Exam: Yes normal external exam Penis: normal penis and circumcised Meatus: meatus normal Scrotum: scrotum normal Testes: Testes normal Back/Spine/Pelvis Back: no CVA tenderness Skin General skin exam: no rashes or lesions noted Neuro General: oriented to person Extrem General: Yes normal to inspection Psych Appearance: well kempt Speech and movement: Normal speech and movement present and Clear speech present Affect: normal affect Attitude: cooperative Insight: Limited insight present (Psych) Judgement: Limited judgement present (Psych) Office Procedures Post Void Residual Post Residual Void Post Void Residual (PVR): 99 [id number] Void Residual by ultrasound Results AMB Urinalysis, Automated UA Leukoctes 0 Allyssa/uL Last Edit by [employer] Bettecori on 04/24/24 14:20 UA Nitrite Last Edit by Sumavisoscori on 04/24/24 14:20 UA Urobilinogen 0.2 mg/dL Last Edit by [employer] on 04/24/24 14:20 UA Protein 300 mg/dL Last Edit by [employer] on 04/24/24 14:20 UA pH 6.0 Last Edit by [employer] on 04/24/24 14:20 UA Blood 10 Philippe/uL Last Edit by [employer] Bettecori on 04/24/24 14:20 UA Specific [place] 1.015 Last Edit by [employer] on 04/24/24 14:20 UA Ketone Last Edit by [employer] on 04/24/24 14:20 UA Bilirubin 0 mg/dL Last Edit by Sumavisoscori on 04/24/24 14:20 UA Glucose 0 mg/dL Last Edit by Sumavisoscori on 04/24/24 14:20 Assessment & Plan Assessment & Plan (1) Urethral meatal stenosis: Comment: 2012, Dr. Greer Code(s): N35.919 - Unspecified urethral stricture, male, unspecified site Category: Medical (2) Hypotonic neurogenic bladder: Code(s): N31.9 - Neuromuscular dysfunction of bladder, unspecified Category: Medical (3) BPH (benign prostatic hyperplasia): Code(s): N40.0 - Benign prostatic hyperplasia without lower urinary tract symptoms Category: Medical Qualifiers: Lower urinary tract symptom presence: symptoms present Lower urinary tract symptom detail: urinary frequency Qualified Code(s): N40.1 - Benign prostatic hyperplasia with lower urinary tract symptoms; R35.0 - Frequency of micturition Plan In office urinalysis results reviewed with the patient today 3+ proteinuria; follows with Nephrology. PVR 99mL. Continue Flomax 0.8 mg daily as prescribed. Facility staff will continue to monitor dysuria as patient is vague with symptoms and UA today negative for leukocytes, nitrates, and or microscopic hematuria. He is happy with his current voiding parameters. Follow-up in 6 months with PVR; or sooner with any issues, concerns, and or questions. Patient Instructions: The patient had an opportunity to ask questions regarding the treatment plan. All questions were answered. Physical exam, labs, and imaging were discussed and reviewed in detail. As well as risks, benefits, and discussion of treatment choices. No major barriers to understanding were identified. The patient expressed understanding and agreement with the above treatment plan. The patient was made aware they should contact our office by phone for worsening of their current condition, the appearance of new symptoms, or with any questions or concerns. Compliance is encouraged with any medications and follow up testing that is ordered. It is a privilege to be allowed the opportunity to participate in? your urological care.? Again, if you have any questions or naga rns If you have any questions or concerns please do not hesitate to contact me. The office is [phone]. This note is constructed using voice recognition software. While every effort has been made to ensure accuracy transcription manager errors may have been included. Yours sincerely, LISETTE Barrera Coding Level of Care Code Est Pt Level 3 (50351) Diagnoses Urethral meatal stenosis N35.919 Hypotonic neurogenic bladder N31.9 Benign prostatic hyperplasia with urinary frequency N40.1; R35.0 Lower urinary tract symptom presence: symptoms present Lower urinary tract symptom detail: urinary frequency CPT Codes Post Residual Void - PVR CPT Code: 23240-Orho Void Residual by ultrasound ([id number])
== END 2024-04-24 14:08 | disposition home or self-care (01) ==
PROVIDERS: PCP Internal Medicine; Visit Provider Nurse Practitioner Family
DX: N35.919 Unspecified urethral stricture, male, unspecified site (principal); N31.9 Neuromuscular dysfunction of bladder, unspecified; N40.1 Benign prostatic hyperplasia with lower urinary tract symptoms; R35.0 Frequency of micturition; Z13.9 Encounter for screening, unspecified
CPT/HCPCS: 99213

== ENCOUNTER → 2024-04-24 13:35 | Outpatient (BNVA) | payer MEDICARE, MEDICAID, SELFPAY | PROVIDERS: PCP Internal Medicine; Visit Provider Nurse Practitioner Family | DX: N40.1 Benign prostatic hyperplasia with lower urinary tract symptoms (principal); R35.0 Frequency of micturition; N31.9 Neuromuscular dysfunction of bladder, unspecified; N35.919 Unspecified urethral stricture, male, unspecified site | CPT/HCPCS: 51798; 81003; 99212 ==

== ENCOUNTER 2024-05-01 09:37 | Outpatient (AMB) | payer MEDICARE, MEDICAID, SELFPAY ==
[2024-05-01 09:43] VITALS: BP 162/66; PULSE 83; O2SAT 96; BMI 31.4
--- NOTE | 2024-05-01 09:43 | HO.NEPHOV ---
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 Required: No Accompanied by: Yarn Twister Allergies Sulfa (Sulfonamide Antibiotics) [SULFA(SULFONAMIDE ANTIBIOTICS)] Allergy (Intermediate, Verified 05/01/24 09:45) ITCHING Medication List - Last Reconciled 05/01/24 by Pineda Tarango MD acetaminophen (Tylenol) 650 mg (2 x 325 mg) PO Q6H PRN amlodipine 5 mg PO DAILY arformoterol 2 mL inhalation BID ascorbic acid (vitamin C) (Vitamin C) 500 mg PO DAILY aspirin 81 mg PO DAILY azithromycin 250 mg PO MOWEFR bisacodyl (Dulcolax (bisacodyl)) 10 mg (2 x 5 mg) PO BEDTIME bisacodyl (Dulcolax (bisacodyl)) 10 mg [place] DAILY PRN blood sugar diagnostic (FreeStyle Lite Strips) As directed cetirizine 10 mg PO DAILY PRN 90 days cholecalciferol (vitamin D3) 50 mcg PO DAILY ciclopirox 0.77% 1 appl topical BID citalopram 20 mg PO DAILY diclofenac sodium 1% 4 grams topical QID docusate sodium 200 mg (2 x 100 mg) PO BEDTIME famotidine (Pepcid) 20 mg PO BEDTIME ferrous sulfate 325 mg orally once a day at 4 pm; folic acid 0.8 mg PO DAILY glucagon HCl (Glucagon (HCl) Emergency Kit) 1 mg subcut ONCE PRN guar gum 1 tbsp PO DAILY insulin glargine (Lantus Solostar U-100 Insulin) 15 units subcut BEDTIME insulin lispro (Humalog KwikPen (U-100) Insulin) 1 sliding scale dose See Protocol subcut TIDAC ipratropium-albuterol 0.5 mg-3 mg(2.5 mg base)/3 mL 3 mL inhalation BID 30 days levothyroxine 100 mcg PO DAILY@0600 [id number] 24,000-76,000 -120,000 unit (Creon) 1 cap PO QID lorazepam (Ativan) 0.5 mg PO BEDTIME PRN metoprolol succinate ER 25 mg See Protocol PO DAILY nystatin 1 appl topical BID PRN nystatin 1 appl topical TID 30 days omeprazole 20 mg PO DAILY pen needle, diabetic, safety (True Comfort Safety Pen Needle) As directed polyethylene glycol 3350 (Miralax) 17 grams PO DAILY simvastatin 20 mg PO BEDTIME sodium zirconium cyclosilicate (Lokelma) 5 grams orally 3 times a week( every SUN,SUN,Fridays); Mix with water. tamsulosin 0.8 mg (2 x 0.4 mg) PO DAILY@1700 90 days zinc oxide-cod liver oil 40 % (Desitin) 1 appl topical DAILY HPI Comments Details: Bernard has been referred for evaluation of chronic disease and hyperkalemia. Bernard is well known to me. He has previously seen in 2020. He has a history of Down syndrome and diabetes mellitus complicated by chronic disease. He has significant proteinuria in the setting of longstanding diabetes medicine the working diagnosis is diabetic kidney disease. Serum creatinine has been fluctuating between 1.5 and 1.7 mg/dL. Recently serum creatinine was found to be at 2.0. He has also had recurrent episodes of hyperkalemia. Last month potassium was 5.7 however about a week ago potassium was 2.0. He has been referred for further evaluation. He is being followed by urology for BPH and a history of meatal stenosis. In the past he had no evidence of obstructive uropathy based on imaging studies. Today was accompanied by caregiver. No specific complaints today. No nausea vomiting. No diarrhea constipation. He is on MiraLax and has bowel movements every day. No shortness of breath cough or expectoration. No urine symptoms. No edema no fever no rash. 01/31/24;Amlodipine discontinued 05/01/24 History obtained [facility] transitional care nurse Home BP around 140 Blood sugar sub optimal A1C at 9.4 % [facility] Medical History Cellulitis Constipation Ascites Pericardial effusion Urethral meatal stenosis Mental and behavioral problem Renal insufficiency Hypercholesterolemia Down syndrome GERD (gastroesophageal reflux disease) BPH (benign prostatic hyperplasia) Hypothyroid Anxiety and depression Pseudoseizures Diabetes mellitus type 1 Surgical History Hx of cataract surgery Family History Father Medical history unknown Mother Medical history unknown Maternal Grandfather Prostate cancer Social History Household Members: None Household Members Other:: other residents and staff Housing: Other Housing Other:: [facility] Alcohol intake: never Comment: 1:1 Sitter Patient Tobacco Use Status: Never used Tobacco e-Cigarette/Vaping Use: Never Used Second Hand Smoke Exposure: No service: No Current occupational status: disabled Cognitive needs: No Hearing needs: No Vision needs: No Physical Exam Vital Signs: Last Vital Signs Pulse 83 05/01/24 09:43 BP 162/66 H 05/01/24 09:43 Pulse Ox 96 05/01/24 09:43 Oxygen Delivery Method Room Air 05/01/24 09:43 BMI result Body Mass Index 31.4 Awake. Comfortable. Neck is supple. Mucosa moist. Lungs AE equal Heart S1-S2 heard no gallop. Abdomen soft. Extremities Trace edema. No involuntary movements. No myoclonus. Results Reviewed Nephrology Results: Hgb 12.7 g/dl (14.0-18.0) L 03/17/24 WBC 6.1 X10*3/uL (4.8-10.8) 03/17/24 Plt Count 345 X10*3/uL (160-400) 03/17/24 Sodium 138 mmol/L (135-145) 04/23/24 Potassium 4.7 mmol/L (3.3-5.1) 04/23/24 Chloride 106 mmol/L (96-108) 04/23/24 Carbon Dioxide 26 mmol/L (22-29) 04/23/24 BUN 41 mg/dL (9-16) H 04/23/24 Creatinine 2.16 mg/dL (0.5-1.4) H 04/23/24 Calcium 8.1 mg/dL (8.4-10.2) L 04/23/24 Urine Creatinine 76.67 mg/dL 04/23/24 Assessment & Plan Assessment & Plan (1) Hyperkalemia: Code(s): E87.5 - Hyperkalemia Category: Medical (2) Renal insufficiency: Code(s): N28.9 - Disorder of kidney and ureter, unspecified Category: Medical (3) CKD (chronic kidney disease): Code(s): N18.9 - Chronic kidney disease, unspecified Category: Medical Plan . 43-year-old man with Down syndrome and longstanding diabetes mellitus has chronic disease. gradual increase in creatinine with hyperkalemia. CKD is probably due to diabetic kidney disease. Nephrotic range proteinria history of meatal stenosis and phimosis Watch for urinary retention Clinically there is no evidence of obstruction at this time. Being followed by Urology Renal ultrasound reported normal Was on low-dose of ADRIANA-inhibitor for renal protection. Stopped due to Hyperkalemia and LOW BP Goal is to slow the progression of kidney disease Continue to avoid nephrotoxic agents including NSAIDs. Hyperkalemia is due to decreased potassium excretion in the setting of CKD. Needs to stay on low-potassium diet Keep Lokelma 5 g to be taken 3 times a week. Unable to add Lisinopril due to High K Follow potassium Vitamin-D deficiency HTN - sub optimal in office Reportedly BP is well controlled at home as per transitional care nurse Keep Amlodipine 5 mg DAILY and titrate to 10 mg QD if BP stays above 140 mmHG Hypothyroidism TSH is elevated On Levothyroid and being follwed by Endocrine Orders: Orders Basic Metabolic Panel 4 Months E87.5 - Hyperkalemia, N18.9 - Chronic kidney disease, unspecified Complete Blood Count Auto Diff 4 Months E87.5 - Hyperkalemia, N18.9 - Chronic kidney disease, unspecified Parathyroid Hormone Intact 4 Months E87.5 - Hyperkalemia, N18.9 - Chronic kidney disease, unspecified Coding Level of Care Code Est Pt Level 5 (08180) Diagnoses Hyperkalemia E87.5 Renal insufficiency N28.9 CKD (chronic kidney disease) N18.9
== END 2024-05-01 10:04 | disposition home or self-care (01) ==
PROVIDERS: PCP Internal Medicine; Visit Provider Internal Medicine Hypertension Specialist
DX: E11.22 Type 2 diabetes mellitus with diabetic chronic kidney disease (principal); N18.9 Chronic kidney disease, unspecified; E87.5 Hyperkalemia; Q90.9 Down syndrome, unspecified
CPT/HCPCS: 99215

== ENCOUNTER → 2024-05-01 09:37 | Outpatient (BNVA) | payer MEDICARE, MEDICAID, SELFPAY | PROVIDERS: PCP Internal Medicine; Visit Provider Internal Medicine Hypertension Specialist | DX: E11.22 Type 2 diabetes mellitus with diabetic chronic kidney disease (principal); E87.5 Hyperkalemia; N18.9 Chronic kidney disease, unspecified; R80.9 Proteinuria, unspecified; Z79.899 Other long term (current) drug therapy | CPT/HCPCS: 99212 ==

== ENCOUNTER 2024-05-27 09:04 | Outpatient (AMB) | payer MEDICARE, MEDICAID, SELFPAY ==
[2024-05-27 09:09] VITALS: BP 118/72; PULSE 69; O2SAT 99; BMI 30.5
--- NOTE | 2024-05-27 09:09 | A.OFFVIS_ITS ---
Vital Signs 05/27/24 09:09 Height 4 ft 7 in Weight 131 lb 2.801 oz BMI 30.5 BP 118/72 Blood Pressure Location Rt brachial Position Sitting Pulse 69 Pulse Source Doppler Pulse Oximetry (%) 99 Oxygen Delivery Method Room Air Intake Visit Reasons: Cough Allergies Sulfa (Sulfonamide Antibiotics) [SULFA(SULFONAMIDE ANTIBIOTICS)] Allergy (Intermediate, Verified 05/27/24 09:16) ITCHING HPI HPI Cough: Details: 43-year-old gentleman, lifetime nonsmoker, with underlying history of Down syndrome followed for chronic cough and IPF. He continues on chronic azithromycin suppressive therapy with reasonable control of his symptoms. He denies recent exacerbations. No significant changes from prior visit. No symptoms of dyspnea. [facility] Medical History Cellulitis Constipation Ascites Pericardial effusion Urethral meatal stenosis Mental and behavioral problem Renal insufficiency Hypercholesterolemia Down syndrome GERD (gastroesophageal reflux disease) BPH (benign prostatic hyperplasia) Hypothyroid Anxiety and depression Pseudoseizures Diabetes mellitus type 1 Surgical History Hx of cataract surgery Family History Father Medical history unknown Mother Medical history unknown Maternal Grandfather Prostate cancer Social History Household Members: None Household Members Other:: other residents and staff Housing: Other Housing Other:: long-term Alcohol intake: never Comment: 1:1 Sitter Patient Tobacco Use Status: Never used Tobacco e-Cigarette/Vaping Use: Never Used Second Hand Smoke Exposure: No service: No Current occupational status: disabled Cognitive needs: No Hearing needs: No Vision needs: No Review of Systems Const Denies daytime sleepiness, Denies excessive sweating, Denies fatigue, Denies fever(s), Denies lethargy, Denies malaise, Denies night sweats, Denies snoring and Denies weight loss Eyes Denies blurry vision and Denies itchy eyes ENT Denies nasal congestion, Denies post nasal drip, Denies sinus pain, Denies sinus pressure and Denies other ( Thrush) Card Denies chest pain, Denies pedal edema, Denies dyspnea, Denies orthopnea and Denies paroxysmal nocturnal dyspnea Resp Denies cough, Denies hemoptysis, Denies excessive phlegm production, Denies dyspnea, Denies snoring and Denies wheezing GI Denies abdominal pain and Denies heartburn Musc Denies myalgias, Denies arthralgias and Denies joint swelling Skin/Breast Denies rash Neuro Denies memory loss and Denies seizure-like activity Psych Denies abnormal sleep pattern, Denies anxiety and Denies memory loss Endo Denies excessive sweating, Denies fatigue and Denies heat intolerance Juan/Lymph Denies easy bruising Aller/Immun Denies itchy eyes, Denies seasonal rhinorrhea and Denies wheezing Physical Exam Vital Signs: Last Vital Signs Pulse 69 05/27/24 09:09 BP 118/72 05/27/24 09:09 Pulse Ox 99 05/27/24 09:09 Oxygen Delivery Method Room Air 05/27/24 09:09 BMI result Body Mass Index 30.5 Const General: no acute distress and alert Nutritional Appearance: not obese Orientation/consciousness: Other orientation findings ( oriented) HEENT Head: Yes atraumatic Eyes General: appearance normal, both eyes and all related structures Sclerae: sclerae normal EOM: EOMs intact bilaterally Neck Neck: Yes supple Lymphatic: no lymphadenopathy noted Resp Effort & Inspection: normal respiratory effort and no use of accessory muscles Auscultation: clear to auscultation bilaterally Cardio Rate: regular rate Rhythm: regular rhythm Heart sounds: no gallops, no murmurs and no rubs Skin General skin exam: other ( warm) Extrem General: No clubbing, No cyanosis and No edema Assessment & Plan Assessment & Plan (1) Chronic cough: Code(s): R05 - Cough Category: Medical Plan: Chronic bronchitis with intermittent exacerbations, now well controlled on suppressive azithromycin therapy. Continue current regimen. (2) IPF (idiopathic pulmonary fibrosis): Code(s): J84.112 - Idiopathic pulmonary fibrosis Category: Medical Plan: Underlying mild IPF essentially asymptomatic. Continue as needed duo nebs. Coding Level of Care Code Est Pt Level 4 (65208) Diagnoses Chronic cough R05 IPF (idiopathic pulmonary fibrosis) J84.112
== END 2024-05-27 09:33 | disposition home or self-care (01) ==
LOC: HO.HPS 09:04
PROVIDERS: PCP Internal Medicine; Visit Provider Internal Medicine Pulmonary Disease
DX: R05.9 Cough, unspecified (principal); J84.112 Idiopathic pulmonary fibrosis
CPT/HCPCS: 99214

== ENCOUNTER → 2024-05-27 09:04 | Outpatient (BNVA) | payer MEDICARE, MEDICAID, SELFPAY | PROVIDERS: PCP Internal Medicine; Visit Provider Internal Medicine Pulmonary Disease | DX: R05.3 Chronic cough (principal); J84.112 Idiopathic pulmonary fibrosis | CPT/HCPCS: 99212 ==

== ENCOUNTER 2024-06-09 09:20 | Outpatient (AMB) | payer MEDICARE, MEDICAID, SELFPAY ==
--- NOTE | 2024-06-09 09:25 | MHC.PC.OV ---
Vital Signs 06/09/24 09:26 Height 4 ft 7 in Weight 129 lb BMI 30.0 BP 126/64 Blood Pressure Location Lt brachial Position Sitting Pulse 60 Pulse Source Pulse Oximeter Pulse Oximetry (%) 100 Oxygen Delivery Method Room Air Intake Visit Reasons: DM Allergies Sulfa (Sulfonamide Antibiotics) [SULFA(SULFONAMIDE ANTIBIOTICS)] Allergy (Intermediate, Verified 06/09/24 09:26) ITCHING Medication List - Last Reconciled 06/09/24 by Guera Mcgregor PA-C acetaminophen (Tylenol) 650 mg (2 x 325 mg) PO Q6H PRN amlodipine 5 mg PO DAILY arformoterol 2 mL inhalation BID ascorbic acid (vitamin C) (Vitamin C) 500 mg PO DAILY aspirin 81 mg PO DAILY azithromycin 250 mg PO MOWEFR bisacodyl (Dulcolax (bisacodyl)) 10 mg (2 x 5 mg) PO BEDTIME bisacodyl (Dulcolax (bisacodyl)) 10 mg [place] DAILY PRN blood sugar diagnostic (FreeStyle Lite Strips) As directed cetirizine 10 mg PO DAILY PRN 90 days cholecalciferol (vitamin D3) 50 mcg PO DAILY ciclopirox 0.77% 1 appl topical BID citalopram 20 mg PO DAILY diclofenac sodium 1% 4 grams topical QID docusate sodium 200 mg (2 x 100 mg) PO BEDTIME famotidine (Pepcid) 20 mg PO BEDTIME ferrous sulfate 325 mg orally once a day at 4 pm; folic acid 0.8 mg PO DAILY glucagon HCl (Glucagon (HCl) Emergency Kit) 1 mg subcut ONCE PRN guar gum 1 tbsp PO DAILY insulin glargine (Lantus Solostar U-100 Insulin) 15 units subcut BEDTIME insulin lispro (Humalog KwikPen (U-100) Insulin) 1 sliding scale dose See Protocol subcut TIDAC ipratropium-albuterol 0.5 mg-3 mg(2.5 mg base)/3 mL 3 mL inhalation BID 30 days levothyroxine 100 mcg PO DAILY@0600 [id number] 24,000-76,000 -120,000 unit (Creon) 1 cap PO QID lorazepam (Ativan) 0.5 mg PO BEDTIME PRN metoprolol succinate ER 25 mg See Protocol PO DAILY nystatin 1 appl topical BID PRN nystatin 1 appl topical TID 30 days omeprazole 20 mg PO DAILY pen needle, diabetic, safety (True Comfort Safety Pen Needle) As directed polyethylene glycol 3350 (Miralax) 17 grams PO DAILY simvastatin 20 mg PO BEDTIME sodium zirconium cyclosilicate (Lokelma) 5 grams orally 3 times a week( every MON,WED,Fridays); Mix with water. tamsulosin 0.8 mg (2 x 0.4 mg) PO DAILY@1700 90 days zinc oxide-cod liver oil 40 % (Desitin) 1 appl topical DAILY Tobacco use date assessed: 03/07/24 Dental Screening Dental Screen Date: 03/07/24 HPI DM HPI Details 43-year-old male with past medical history of anxiety, hypothyroid, BPH, GERD, hypercholesterolemia, down syndrome, diabetes mellitus, hypertension last seen by Dr. Mcgowan March 2024 coming in for follow up on diabetes. In review of the notes, patient was seen by [facility] [place] 05/27/2024 continue on DuoNebs as needed.?Patient was seen by Nephrology 05/01/2024 continue to avoid nephrotoxic agents.?Seen by urology 04/24/2024 continue on Flomax.?Seen by GI 04/22/2024 continue on current medication regimen for constipation. The patient's diabetes has been under continuous management with endocrinology consultations, the last of which was on May 30. The most recent HbA1c is 9.3 which is slightly increased from last A1c. The patient's insulin regimen remains unchanged following recent evaluations. His glucose levels have shown variability, leading to episodes of hypoglycemia approximately four times last month and twice this month, with lower limits reaching a blood glucose of 60 mg/dL. The current control strategies involve close monitoring and dietary interventions, including a newly implemented low-sodium, low-potassium, and low-sulfur diet recommended due to stage 3 chronic kidney disease. The patient has also adopted a gluten-free dietary pattern, incorporating fresh vegetables and avoiding high-potassium foods. The kidney condition has required avoidance of NSAIDs, and dietary modifications were advised to prevent further deterioration. Patient also complaining of right-sided abdominal pain which began this morning without nausea, vomiting, diarrhea or changes in urinary habits. [facility] Medical History Cellulitis Constipation Ascites Pericardial effusion Urethral meatal stenosis Mental and behavioral problem Renal insufficiency Hypercholesterolemia Down syndrome GERD (gastroesophageal reflux disease) BPH (benign prostatic hyperplasia) Hypothyroid Anxiety and depression Pseudoseizures Diabetes mellitus type 1 Surgical History Hx of cataract surgery Family History Father Medical history unknown Mother Medical history unknown Maternal Grandfather Prostate cancer Social History Household Members: None Household Members Other:: other residents and staff Housing: Other Housing Other:: snf Alcohol intake: never Comment: 1:1 Sitter Patient Tobacco Use Status: Never used Tobacco e-Cigarette/Vaping Use: Never Used Second Hand Smoke Exposure: No service: No Current occupational status: disabled Cognitive needs: No Hearing needs: No Vision needs: No Questionnaire Thrive Questionnaire Date Thrive assessed: 03/07/24 Are you currently unemployed and looking for a job?: No AUDIT C Alcohol Use Questionnaire (AUDIT-C) 1. How often do you have a drink containing alcohol?: Never 3. How often do you have six or more drinks on one occasion?: Never Total Score: 0 Score Reviewed/Action Taken: No GAGE-7 AMB Questionnaire GAGE-7 Date GAGE - 7 assessed: 03/07/24 Source: Developed by Drs. Rhys Carvalho, Bernadette Flanagan, Sundeep Gee and colleagues, with an educational odilon from [employer]. Review of Systems Const Denies body aches, Denies chills, Denies fever(s), Denies headache(s) and Denies poor appetite Eyes Reports no additional complaints ENT Denies dizziness and Denies headache(s) Card Denies chest pain, Denies syncope, Denies edema, Denies irregular heart rhythm, Denies lightheadedness and Denies dyspnea Resp Denies cough and Denies dyspnea GI Denies abdominal pain, Denies constipation, Denies diarrhea, Denies nausea and Denies vomiting Reports no additional complaints Musc Reports no additional complaints and Denies abnormal gait Skin/Breast Reports system reviewed and no additional complaints, except as documented Neuro Denies abnormal gait, Denies dizziness, Denies syncope and Denies headache(s) Psych Reports no additional complaints Physical exam (Primary Care) Vital Signs: Last Vital Signs Pulse 60 06/09/24 09:26 BP 126/64 06/09/24 09:26 Pulse Ox 100 06/09/24 09:26 Oxygen Delivery Method Room Air 06/09/24 09:26 BMI result Body Mass Index 30.0 Tobacco/Smoking Status: Tobacco use Status Tobacco use date assessed 03/07/24 06/09/24 09:25 Patient Tobacco Use Status Never used Tobacco 06/09/24 09:25 e-Cigarette/Vaping Use Never Used 06/09/24 09:25 Thrive Assessment: Date of Thrive Assessment Date Thrive assessed 03/07/24 06/09/24 09:25 Const General: cooperative, healthy appearing, comfortable and no acute distress Orientation/consciousness: patient oriented x3 HENMT Head: Yes normocephalic Ears: hearing grossly normal bilaterally General nose exam: Normal external nose present Eyes General: appearance normal, both eyes and all related structures Conjunctivae: conjunctivae normal Neck Neck: Yes full ROM and Yes no lymphadenopathy Resp Effort & Inspection: normal respiratory effort Auscultation: clear to auscultation bilaterally, no crackles, no rales, no rhonchi and no wheezes Cardio Rate: regular rate Rhythm: regular rhythm GI Palpation (GI): Soft to palpation, not firm, nontender, no guarding, not rigid, no masses and No Rebound tenderness present Skin General skin exam: no rashes or lesions noted Neuro General: patient oriented x3 Gait exam (Neuro): Normal gait present Extrem General: Yes normal to inspection, Yes full ROM and No edema Psych Affect: normal affect Attitude: cooperative Insight: Good insight present (Psych) Judgement: Good judgement present (Psych) Coding Level of Care Code Est Pt Level 4 (41761) Diagnoses CKD (chronic kidney disease) N18.9 Type 1 diabetes mellitus with hyperglycemia E10.65 Diabetes mellitus complication status: with hyperglycemia Hypertension I10 Overweight (BMI 25.0-29.9) E66.3 Hypercholesterolemia E78.00 Gastroesophageal reflux disease without esophagitis K21.9 Esophagitis presence: without esophagitis Abdominal pain R10.9 Assessment & Plan Assessment & Plan (1) CKD (chronic kidney disease): Code(s): N18.9 - Chronic kidney disease, unspecified Category: Medical Plan: Maintain dietary restrictions on sodium, potassium, and sulfur. Monitor renal function regularly. (2) Diabetes mellitus type 1: Comment: DKA April 2018, Dr. Salcedo Code(s): E10.9 - Type 1 diabetes mellitus without complications Category: Medical Qualifiers: Diabetes mellitus complication status: with hyperglycemia Qualified Code(s): E10.65 - Type 1 diabetes mellitus with hyperglycemia Plan: Decrease the amount of carbohydrates such as pasta, bread, rice, and potatoes and limit the amount of sweets. Although fruits are generally healthy they should be eaten in moderation as they are still high in sugar. Hemoglobin A1c goal of less than 7%. Continue to follow with endocrinology. (3) Hypertension: Code(s): I10 - Essential (primary) hypertension Category: Medical Plan: Continue on current blood pressure medication. Avoid salt intake and encourage healthy diet and regular exercise. (4) Overweight (BMI 25.0-29.9): Code(s): E66.3 - Overweight Category: Medical Plan: Healthy diet and regular exercise is encouraged. (5) Hypercholesterolemia: Code(s): E78.00 - Pure hypercholesterolemia, unspecified Category: Medical Plan: Avoid foods that are high in cholesterol such as red meat, fried foods, eggs and baked goods. Triglyceride goal of less than 150 and LDL goal of less than 100. (6) GERD (gastroesophageal reflux disease): Code(s): K21.9 - Gastro-esophageal reflux disease without esophagitis Category: Medical Qualifiers: Esophagitis presence: without esophagitis Qualified Code(s): K21.9 - Gastro-esophageal reflux disease without esophagitis Plan: Avoid trigger foods such as citrus, tomato products, soda, caffeine, spicy foods and other foods that may be irritating to your stomach. Avoid laying flat 3-4 hours after eating and elevate the head of the bed 30 degrees to prevent acid from moving into the esophagus. (7) Abdominal pain: Code(s): R10.9 - Unspecified abdominal pain Category: Medical Plan: Abdominal pain that reproducible on exam and no associated symptoms. Advised patient to continue to monitor abdominal discomfort and reviewed red flag symptoms and when to present for re-evaluation Plan This note was constructed using voice recognition software. While every effort has been made to ensure accuracy and form worker, still areas may have been included sometimes these areas may affect the content or meeting of the given symptoms. Total time spent caring for the patient today was 30 minutes. This includes time spent before the visit reviewing the chart, time spent during the visit, and time spent after the visit and documentation. Patient was informed and verbally consented to the use of an ambient scribe for clinic note documentation during this visit. Medications: Refilled acetaminophen (Tylenol) 650 mg (2 x 325 mg) PO Q6H PRN 30 tabs 5RF pain E10.65 - Type 1 diabetes mellitus with hyperglycemia ascorbic acid (vitamin C) (Vitamin C) 500 mg PO DAILY 90 tabs 1RF aspirin take with food 81 mg PO DAILY 90 tabs 0RF cetirizine 10 mg PO DAILY 90 days PRN 90 tabs 1RF allergy symptoms folic acid 0.8 mg PO DAILY 90 tabs 3RF E10.65 - Type 1 diabetes mellitus with hyperglycemia
[2024-06-09 09:26] VITALS: BP 126/64; PULSE 60; O2SAT 100
== END 2024-06-09 09:58 | disposition home or self-care (01) ==
PROVIDERS: PCP Internal Medicine
DX: I12.9 Hypertensive chronic kidney disease with stage 1 through stage 4 chronic kidney disease, or unspecified chronic kidney disease (principal); N18.9 Chronic kidney disease, unspecified; E10.65 Type 1 diabetes mellitus with hyperglycemia; E66.3 Overweight; E78.00 Pure hypercholesterolemia, unspecified; K21.9 Gastro-esophageal reflux disease without esophagitis; R10.9 Unspecified abdominal pain

== ENCOUNTER → 2024-06-09 09:20 | Outpatient (BNVA) | payer MEDICARE, MEDICAID, SELFPAY | PROVIDERS: PCP Internal Medicine | DX: I12.9 Hypertensive chronic kidney disease with stage 1 through stage 4 chronic kidney disease, or unspecified chronic kidney disease (principal); E10.22 Type 1 diabetes mellitus with diabetic chronic kidney disease; N18.9 Chronic kidney disease, unspecified; E10.65 Type 1 diabetes mellitus with hyperglycemia; E66.3 Overweight; E78.00 Pure hypercholesterolemia, unspecified; K21.9 Gastro-esophageal reflux disease without esophagitis; R10.9 Unspecified abdominal pain | CPT/HCPCS: 99212 ==

== ENCOUNTER 2024-07-24 10:29 | Outpatient (AMB) | payer MEDICARE, MEDICAID, SELFPAY ==
--- NOTE | 2024-07-24 10:40 | MHC.PC.OV ---
Vital Signs 07/24/24 10:41 Height 4 ft 7 in Weight 122 lb 2 oz BMI 28.4 BP 110/66 Blood Pressure Location Rt brachial Position Sitting Pulse 75 Pulse Source Pulse Oximeter Pulse Oximetry (%) 98 Oxygen Delivery Method Room Air Intake Visit Reasons: DM1 Intake Note: Patient is here to follow up on DM1. Complaint of coughing on going for a week. Nursery Laborer Required: No Blanket Binder: Present Accompanied by: STAFF Allergies Sulfa (Sulfonamide Antibiotics) [SULFA(SULFONAMIDE ANTIBIOTICS)] Allergy (Intermediate, Verified 07/24/24 10:41) ITCHING Tobacco use date assessed: 07/24/24 Dental Screening Dental Screen Date: 07/24/24 Did you have a dental visit in the last 12 months?: Yes Did you have a dental problem in the last 6 months where you did not have access to dental care?: No Was dental information given to patient?: Patient has dentist HPI DM1 HPI Details The patient is a 43-year-old male presenting with Type 2 Diabetes Mellitus, poorly controlled with a Hemoglobin A1c of 9.3. It was noted that last April, the Hemoglobin A1c was 11+, indicating some improvement. Additionally, the patient has a significant Vitamin D deficiency with a level of 9, and hypothyroidism is noted with a TSH level of 7.39. The patient is monitored by a kidney specialist for Chronic Kidney Disease, with a reported BUN level of 42, indicating hydration issues. The patient reports episodes of coughing, forcing it occasionally, and recently experienced epistaxis due to picking the nose, exacerbated by dry nasal passageways. There was a recent weight loss of 10 pounds, noteworthy in context to the Chronic Kidney Disease diet. There is high cholesterol with a level of 139, requiring reassessment. Previous interventions include thyroid and Vitamin D supplementation. [facility] Medical History Cellulitis Constipation Ascites Pericardial effusion Urethral meatal stenosis Mental and behavioral problem Renal insufficiency Hypercholesterolemia Down syndrome GERD (gastroesophageal reflux disease) BPH (benign prostatic hyperplasia) Hypothyroid Anxiety and depression Pseudoseizures Diabetes mellitus type 1 Surgical History Hx of cataract surgery Family History Father Medical history unknown Mother Medical history unknown Maternal Grandfather Prostate cancer Social History Household Members: None Household Members Other:: other residents and staff Housing: Other Housing Other:: intermediate Alcohol intake: never Comment: 1:1 Sitter Patient Tobacco Use Status: Never used Tobacco e-Cigarette/Vaping Use: Never Used Second Hand Smoke Exposure: No service: No Current occupational status: disabled Cognitive needs: No Hearing needs: No Vision needs: No Questionnaire PHQ-9 Over the last 2 weeks, how often have you been bothered by any of the following problems? 1. Little interest or pleasure in doing things: not at all 2. Feeling down, depressed, or hopeless: not at all 3. Trouble falling or staying asleep, or sleeping too much: not at all 4. Feeling tired or having little energy: not at all 5. Poor appetite or overeating: not at all 6. Feeling bad about yourself - or that you are a failure or have let yourself or your family down: not at all 7. Trouble concentrating on things, such as reading the newspaper or watching television: not at all 8. Moving or speaking so slowly that other people could have noticed. Or the opposite - being so fidgety or restless that you have been moving around a lot more than usual: not at all 9. Thoughts that you would be better off or of hurting yourself in some way: not at all Total score: 0 Depression Screening Interpretation: Negative Depression Screening Done: Yes Source: Developed by Drs. Rhys Carvalho, Bernadette Flanagan, Sundeep Gee and colleagues, with an educational odilon from [employer]. Thrive Questionnaire Date Thrive assessed: 07/24/24 I am a: Patient What is your living situation today?: I have a steady place to live Within the past 12 months, did the food you bought not last and you didn't have the money to get more?: Never true Within the past 12 months, did you worry whether your food would run out before you got money to buy more?: Never true Do you have trouble paying for medicines?: No Do you have trouble getting transportation to medical appointments?: No Do you have trouble paying your heating and electricity bill?: No Do you have trouble taking care of your child, family member or friend?: No Do you have trouble with day-to-day activities such as bathing, preparing meals, shopping, managing finances, etc.?: No Are you currently unemployed and looking for a job?: No Are you interested in more education?: No Please select the resources that you would like help with: None Currently or been in a relationship where the following occur: No concerns reported THRIVE Score: 0 AUDIT C Alcohol Use Questionnaire (AUDIT-C) 1. How often do you have a drink containing alcohol?: Never Total Score: 0 GAGE-7 AMB Questionnaire GAGE-7 Date GAGE - 7 assessed: 07/24/24 Feeling nervous, anxious, or on edge: 0 = Not at all Not being able to stop or control worryin = Not at all Worrying too much about different things: 0 = Not at all Trouble relaxin = Not at all Being so restless that it is hard to sit still: 0 = Not at all Becoming easily annoyed or irritable: 0 = Not at all Feeling afraid as if something awful might happen: 0 = Not at all Total GAGE-7 score (0-4 normal; 5-9 mild; 10-14 moderate; 15-21 severe): 0 Source: Developed by Drs. Rhys Carvalho, Bernadette Flanagan, Sundeep Gee and colleagues, with an educational odilon from [employer]. Physical exam (Primary Care) Vital Signs: Last Vital Signs Pulse 75 07/24/24 10:41 BP 110/66 07/24/24 10:41 Pulse Ox 98 07/24/24 10:41 Oxygen Delivery Method Room Air 07/24/24 10:41 BMI result Body Mass Index 28.4 Tobacco/Smoking Status: Tobacco use Status Tobacco use date assessed 07/24/24 07/24/24 10:50 Patient Tobacco Use Status Never used Tobacco 07/24/24 10:50 e-Cigarette/Vaping Use Never Used 07/24/24 10:50 PHQ-9: PHQ-9 Score PHQ-9: Total score 0 07/24/24 11:22 Depression Screening Interpretation: Negative Thrive Assessment: Date of Thrive Assessment Date Thrive assessed 07/24/24 07/24/24 10:50 Currently or been in a relationship where the following occur: No concerns reported Const General: alert; No acute distress Eyes Conjunctivae: conjunctivae normal Resp Auscultation: clear to auscultation bilaterally Cardio Rate: regular rate Rhythm: regular rhythm GI Inspection: Yes normal to inspection Extrem General: Yes normal to inspection and No edema Results AMB Hemoglobin A1c AMB Hemoglobin A1c 9.3 % Last Edit by NING Johnson on 07/24/24 11:14 Results Reviewed Results Reviewed: Laboratory Last Values Hgb A1c (Clinic) 9.3 % (4.0-6.0) H 07/24/24 10:39 Coding Level of Care Code Est Pt Level 4 (00426) Diagnoses Type 1 diabetes mellitus with hyperglycemia E10.65 Diabetes mellitus complication status: with hyperglycemia Hypertension I10 CKD (chronic kidney disease) N18.9 Urethral meatal stenosis N35.919 IPF (idiopathic pulmonary fibrosis) J84.112 Gastroesophageal reflux disease without esophagitis K21.9 Esophagitis presence: without esophagitis Acquired hypothyroidism E03.9 Hypothyroidism type: acquired Vitamin D deficiency E55.9 Cough R05.9 Assessment & Plan Assessment & Plan (1) Diabetes mellitus type 1: Comment: DKA April 2018, Dr. Salcedo Code(s): E10.9 - Type 1 diabetes mellitus without complications Category: Medical Qualifiers: Diabetes mellitus complication status: with hyperglycemia Qualified Code(s): E10.65 - Type 1 diabetes mellitus with hyperglycemia (2) Hypertension: Code(s): I10 - Essential (primary) hypertension Category: Medical (3) CKD (chronic kidney disease): Code(s): N18.9 - Chronic kidney disease, unspecified Category: Medical (4) Urethral meatal stenosis: Comment: 2012, Dr. Greer Code(s): N35.919 - Unspecified urethral stricture, male, unspecified site Category: Medical (5) IPF (idiopathic pulmonary fibrosis): Code(s): J84.112 - Idiopathic pulmonary fibrosis Category: Medical (6) GERD (gastroesophageal reflux disease): Code(s): K21.9 - Gastro-esophageal reflux disease without esophagitis Category: Medical Qualifiers: Esophagitis presence: without esophagitis Qualified Code(s): K21.9 - Gastro-esophageal reflux disease without esophagitis (7) Hypothyroid: Code(s): E03.9 - Hypothyroidism, unspecified Category: Medical Qualifiers: Hypothyroidism type: acquired Qualified Code(s): E03.9 - Hypothyroidism, unspecified (8) Vitamin D deficiency: Code(s): E55.9 - Vitamin D deficiency, unspecified Category: Medical (9) Cough: Code(s): R05.9 - Cough, unspecified Category: Medical Plan - Increase monitoring and management of Type 2 Diabetes Mellitus; consider alterations in diabetic medication if necessary. - Prescribe high-dose Vitamin D supplements, 50,000 units weekly for three months. - Adjust management of hypothyroidism based on recent TSH levels; monitor response closely. - For cough, consider the use of Delsym as needed for symptom relief. - Advise against nasal picking and provide saline nasal spray to moisturize nasal passages; consider an ENT referral if epistaxis persists. - Recommend increased fluid intake to address hydration as part of Chronic Kidney Disease management. - Plan to reassess cholesterol levels; ensure fasting before the next lab draw. - Review and update vaccinations and health maintenance as indicated. Orders: Orders AMB Hemoglobin A1c Today E10.65 - Type 1 diabetes mellitus with hyperglycemia Medications: New dextromethorphan polistirex ER (Delsym 12 hour) 10 mL PO .QHS PRN 89 mL 0RF cough R05.9 - Cough, unspecified cholecalciferol (vitamin D3) 1,250 mcg PO QWEEK 12 caps 0RF 12 weeks E55.9 - Vitamin D deficiency, unspecified
[2024-07-24 10:41] VITALS: BP 110/66; PULSE 75; O2SAT 98; BMI 28.4
== END 2024-07-24 11:39 | disposition home or self-care (01) ==
PROVIDERS: PCP Internal Medicine; Visit Provider Internal Medicine
DX: I12.9 Hypertensive chronic kidney disease with stage 1 through stage 4 chronic kidney disease, or unspecified chronic kidney disease (principal); E10.65 Type 1 diabetes mellitus with hyperglycemia; J84.112 Idiopathic pulmonary fibrosis; N18.9 Chronic kidney disease, unspecified; N35.919 Unspecified urethral stricture, male, unspecified site; K21.9 Gastro-esophageal reflux disease without esophagitis; E03.9 Hypothyroidism, unspecified; E55.9 Vitamin D deficiency, unspecified; R05.9 Cough, unspecified

== ENCOUNTER → 2024-07-24 10:29 | Outpatient (BNVA) | payer MEDICARE, MEDICAID, SELFPAY | PROVIDERS: PCP Internal Medicine; Visit Provider Internal Medicine | DX: E10.65 Type 1 diabetes mellitus with hyperglycemia (principal); I12.9 Hypertensive chronic kidney disease with stage 1 through stage 4 chronic kidney disease, or unspecified chronic kidney disease; E10.22 Type 1 diabetes mellitus with diabetic chronic kidney disease; N18.9 Chronic kidney disease, unspecified; N35.919 Unspecified urethral stricture, male, unspecified site; J84.112 Idiopathic pulmonary fibrosis; K21.9 Gastro-esophageal reflux disease without esophagitis; E03.9 Hypothyroidism, unspecified; E55.9 Vitamin D deficiency, unspecified; R05.9 Cough, unspecified | CPT/HCPCS: 83036; 99212 ==

== ENCOUNTER 2024-07-25 11:39 | Outpatient (AMB) | payer MEDICARE, MEDICAID, SELFPAY ==
--- NOTE | 2024-07-25 11:44 | MHC.OFFVIS ---
Vital Signs 07/25/24 11:45 Height 4 ft 7 in Weight 133 lb 9.602 oz BMI 31.0 BP 138/70 Blood Pressure Location Lt brachial Position Sitting Pulse 68 Pulse Source Pulse Oximeter Pulse Oximetry (%) 99 Oxygen Delivery Method Room Air Intake Visit Reasons: Follow up GERD Intake Note: ESTABLISHED PATIENT Reason; scheduled in office 2 mos FUV. Changes/concerns? Lack of appetite. Abd pain (epigastric), loose/softer stools. Pharmacy verified? [facility] Allergies Sulfa (Sulfonamide Antibiotics) [SULFA(SULFONAMIDE ANTIBIOTICS)] Allergy (Intermediate, Verified 07/25/24 11:45) ITCHING HPI HPI Follow up GERD: Details: LAST VISIT Constipation GERD (gastroesophageal reflux disease) Constipation Exocrine pancreatic insufficiency Postprandial abdominal bloating Plan Increase fluid intake and activity to promote better bowel motility. Patient will continue taking Dulcolax and Colace in the evening and MiraLax in the morning. May use p.r.n. suppository if no bowel movements in 2-3 days. Follow-up in 3 months, sooner on as needed basis. Both patient and continuous improvement manager are agreeable to this plan and verbalizes understanding of instructions. They were given the opportunity to ask questions and all questions answered. ? Thank you for allowing me to participate in his care Medications New bisacodyl (Dulcolax (bisacodyl)) 10 mg NC DAILY PRN 30 ea 0RF constipation TODAY'S VISIT Patient is here today for follow-up. Patient is accompanied by continuous improvement manager. Patient reports that in the past few days he has been having increased abdominal pain and occasional loose stools. Patient also reports decreased appetite. No one else in the assisted is sick. Patient does admit to have cold symptoms and coughing without fever or chills. Patient denies any body aches. Patient denies melena, hematochezia, unintentional weight loss or ribbon like stools. Patient denies any dyspepsia, dysphagia or odynophagia. Patient denies any nausea or vomiting. Patient is taking omeprazole in the morning and famotidine at bedtime. Symptoms of acid reflux have been suppressed. [facility] Medical History Cellulitis Constipation Ascites Pericardial effusion Urethral meatal stenosis Mental and behavioral problem Renal insufficiency Hypercholesterolemia Down syndrome GERD (gastroesophageal reflux disease) BPH (benign prostatic hyperplasia) Hypothyroid Anxiety and depression Pseudoseizures Diabetes mellitus type 1 Surgical History Hx of cataract surgery Family History Father Medical history unknown Mother Medical history unknown Maternal Grandfather Prostate cancer Social History Household Members: None Household Members Other:: other residents and staff Housing: Other Housing Other:: assisted Alcohol intake: never Comment: 1:1 Sitter Patient Tobacco Use Status: Never used Tobacco e-Cigarette/Vaping Use: Never Used Second Hand Smoke Exposure: No service: No Current occupational status: disabled Cognitive needs: No Hearing needs: No Vision needs: No Review of Systems Const Denies weight gain and Denies weight loss ENT Reports no additional complaints, Denies dysphagia and Denies odynophagia Card Reports no additional complaints Resp Reports no additional complaints GI Reports abdominal pain, Denies belching, Denies melena, Denies bloating, Denies change in bowel habits, Reports constipation, Denies dysphagia, Denies excessive flatus, Denies dyspepsia, Denies heartburn, Denies diarrhea, Reports loose stools, Denies nausea, Denies odynophagia and Denies vomiting Reports no additional complaints Musc Reports no additional complaints Neuro Reports no additional complaints Psych Reports no additional complaints Endo Reports no additional complaints Physical Exam Vital Signs: Last Vital Signs Pulse 68 07/25/24 11:45 BP 138/70 07/25/24 11:45 Pulse Ox 99 07/25/24 11:45 Oxygen Delivery Method Room Air 07/25/24 11:45 BMI result Body Mass Index 31.0 Const General: healthy appearing, no acute distress and well developed Nutritional Appearance: well nourished Orientation/consciousness: oriented to person Resp Effort & Inspection: normal respiratory effort, able to speak in complete sentences, no tracheal deviation and symmetric chest movement Auscultation: clear to auscultation bilaterally Cardio Rate: regular rate Heart sounds: S1 normal heart sound present and S2 normal heart sound present GI Inspection: Yes normal to inspection and No distended Palpation (GI): Soft to palpation, not firm, nontender and No hepatosplenomegaly present Auscultation: normal bowel sounds General: Yes no CVA tenderness Back/Spine/Pelvis Back: no CVA tenderness Skin General skin exam: elasticity normal, turgor normal and dry skin Neuro General: oriented to person Assessment & Plan Assessment & Plan (1) Vitamin D deficiency: Code(s): E55.9 - Vitamin D deficiency, unspecified Category: Medical (2) Constipation: Code(s): K59.00 - Constipation, unspecified Category: Medical Qualifiers: Constipation type: slow transit constipation Qualified Code(s): K59.01 - Slow transit constipation (3) GERD (gastroesophageal reflux disease): Code(s): K21.9 - Gastro-esophageal reflux disease without esophagitis Category: Medical Qualifiers: Esophagitis presence: without esophagitis Qualified Code(s): K21.9 - Gastro-esophageal reflux disease without esophagitis (4) Abdominal pain: Code(s): R10.9 - Unspecified abdominal pain Category: Medical Qualifiers: Abdominal location: generalized Qualified Code(s): R10.84 - Generalized abdominal pain (5) Generalized postprandial abdominal pain: Code(s): R10.84 - Generalized abdominal pain Plan Occasional loose stools, will order GI panel. Abdominal pain and bloating postprandially, patient will be sent for abdominal ultrasound. Patient will hold Dulcolax for diarrhea. Increase fluid intake and activity to promote better bowel motility. Patient was encouraged to eat smaller meals and more often. If patient has symptoms will get worse or if he will have shows encouraged him to go to ED to get evaluated. Patient will follow-up in 2 months, sooner on as needed basis. Both patient and continuous improvement manager are agreeable to plan of care and verbalize understanding of instructions. They were given the opportunity to ask questions and all questions answered. Thank you for allowing me to participate in his care Orders: Orders GI Panel Today R19.7 - Diarrhea, unspecified US abdomen complete Today R10.84 - Generalized abdominal pain, R10.9 - Unspecified abdominal pain Coding Level of Care Code Est Pt Level 4 (69751) Diagnoses Vitamin D deficiency E55.9 Slow transit constipation K59.01 Constipation type: slow transit constipation Gastroesophageal reflux disease without esophagitis K21.9 Esophagitis presence: without esophagitis Generalized abdominal pain R10.84 Abdominal location: generalized Generalized postprandial abdominal pain R10.84 Time Spent (min) 35 Comment 20 minutes spent with patient and additional 15 minutes spent reviewing his records
[2024-07-25 11:45] VITALS: BP 138/70; PULSE 68; O2SAT 99; BMI 31.0
== END 2024-07-25 12:30 | disposition home or self-care (01) ==
PROVIDERS: PCP Internal Medicine; Visit Provider Nurse Practitioner Family
DX: E55.9 Vitamin D deficiency, unspecified (principal); K59.01 Slow transit constipation; K21.9 Gastro-esophageal reflux disease without esophagitis; R10.84 Generalized abdominal pain
CPT/HCPCS: 99214

== ENCOUNTER → 2024-07-25 11:39 | Outpatient (BNVA) | payer MEDICARE, MEDICAID, SELFPAY | PROVIDERS: PCP Internal Medicine; Visit Provider Nurse Practitioner Family | DX: K59.01 Slow transit constipation (principal); K21.9 Gastro-esophageal reflux disease without esophagitis; E55.9 Vitamin D deficiency, unspecified; R10.84 Generalized abdominal pain | CPT/HCPCS: 99212 ==

== ENCOUNTER 2024-07-31 17:02 | Outpatient (REF) | payer MEDICARE, MEDICAID, SELFPAY | END 2024-07-31 17:03 | disposition home or self-care (01) | LOC: HO.LNP 17:02 | PROVIDERS: Visit Provider Nurse Practitioner Family | DX: Z13.89 Encounter for screening for other disorder (principal) | CPT/HCPCS: 87507 ==

== ENCOUNTER 2024-08-02 09:15 | Outpatient (AMB) | payer MEDICARE, MEDICAID, SELFPAY ==
--- NOTE | 2024-08-02 11:30 | MHC.OFFWIV ---
Intake Vital Signs 08/02/24 11:31 Weight 130 lb BP 124/72 Blood Pressure Location Rt brachial Position Sitting Pulse 63 Pulse Source Pulse Oximeter Pulse Oximetry (%) 99 Oxygen Delivery Method Room Air Intake Visit Reasons: EP Nose bleed Intake Note: Patient here for nose bleed that has been going on for about 2 weeks. Patient Tobacco Use Status: Never used Tobacco Allergies Sulfa (Sulfonamide Antibiotics) [SULFA(SULFONAMIDE ANTIBIOTICS)] Allergy (Intermediate, Verified 08/07/24 15:38) ITCHING Do you need a note to return to daycare/school/sports/work: No HPI EP Nose bleed HPI Details Patient is a 43-year-old down syndromic male who comes to the walk-in clinic with staff member from his residence, and reports that he has had recurrent nosebleeds from the left nare. He has been seen digitally manipulating the area with his left fingers, and they report that he has long fingernails. They also report dry heat source at the residence. No fall or apparent trauma otherwise. No upper respiratory infection symptoms. No altered behavior. No apparent distress. He does take aspirin for prophylaxis for cardiac issues due to diabetes. No reports of fever chills, nausea vomiting or diarrhea, headache or dizziness or weakness, ear pain or hearing issues, difficulty eating, numbness or tingling, worsening speech or mental status changes, respiratory symptoms, pain, or other significant associated symptoms PFSH Medical History Cellulitis Constipation Ascites Pericardial effusion Urethral meatal stenosis Mental and behavioral problem Renal insufficiency Hypercholesterolemia Down syndrome GERD (gastroesophageal reflux disease) BPH (benign prostatic hyperplasia) Hypothyroid Anxiety and depression Pseudoseizures Diabetes mellitus type 1 Surgical History Hx of cataract surgery Family History Father Medical history unknown Mother Medical history unknown Maternal Grandfather Prostate cancer Social History Household Members: None Household Members Other:: other residents and staff Housing: Other Housing Other:: long-term Alcohol intake: never Comment: 1:1 Sitter Patient Tobacco Use Status: Never used Tobacco e-Cigarette/Vaping Use: Never Used Second Hand Smoke Exposure: No service: No Current occupational status: disabled Cognitive needs: No Hearing needs: No Vision needs: No Review of Systems Const Unobtainable due to mental condition (Down syndrome) Physical Exam Vital Signs: Last Vital Signs Pulse 63 08/02/24 11:31 BP 124/72 08/02/24 11:31 Pulse Ox 99 08/02/24 11:31 Oxygen Delivery Method Room Air 08/02/24 11:31 HEENT Other: There is a small abrasion to the left anterior septum, which has scant blood dried to it. No large clot, edema or apparent hematoma to the septum. No induration or fluctuance, discharge or pustulant it is, active bleeding, or other septum abnormality. No foreign body visible. No edema erythema or warmth to the nose otherwise. No gross nasal discharge visible. Septum is dry. General nose exam: Normal external nose present, nares abnormal and Abnormal nasal septum present (There is a small abrasion to the left anterior septum) Assessment & Plan Assessment & Plan (1) Epistaxis: Code(s): R04.0 - Epistaxis Plan Patient has apparent recurrent epistaxis to the left nare. He is not reliable for history, so I am not sure if this started after he was digitally manipulating it with his fingers, however he has extensive length to the fingernails, and he has been seen picking at his nose. Due to cold winter weather, the area of the residence is reported to be dry. He also takes aspirin for coronary artery disease prophylaxis, which is likely contributing to severity of bleeding, and recurrence. He should stop the aspirin for a few days until the symptoms resolve. Will have staff apply bacitracin ointment to the crack in the septum, to help prevent infection, as he is diabetic, and to help moisten the area and occlude it and hopefully this will help prevent reoccurrence. Adequate hydration for the patient, and humidification to the air was discussed. I have asked staff to trim his fingernails appropriately, and monitor for digital manipulation. He will be also be monitored for recurrence, fever or chills, altered behavior, or other significant associated symptoms should come back to the walk-in or see primary care physician as needed, or should be brought to the emergency department with bleeding that cannot be controlled, or for any worrisome symptoms. Coding Level of Care Code Est Pt Level 4 (96835) Diagnoses Epistaxis R04.0
[2024-08-02 11:31] VITALS: BP 124/72; PULSE 63; O2SAT 99
== END 2024-08-02 13:28 | disposition home or self-care (01) ==
PROVIDERS: PCP Internal Medicine; Visit Provider Physician Assistant Medical
DX: R04.0 Epistaxis (principal)

== ENCOUNTER → 2024-08-02 09:15 | Outpatient (BNVA) | payer MEDICARE, MEDICAID, SELFPAY | PROVIDERS: PCP Internal Medicine; Visit Provider Physician Assistant Medical | DX: R04.0 Epistaxis (principal) | CPT/HCPCS: 99212 ==

== ENCOUNTER 2024-08-07 13:23 | Outpatient (AMB) | payer MEDICARE, MEDICAID, SELFPAY ==
--- NOTE | 2024-08-07 13:36 | A.OFFPC_ITS ---
Vital Signs 08/07/24 13:37 Height 4 ft 7 in Weight 127 lb BMI 29.5 BP 116/66 Blood Pressure Location Rt brachial Position Sitting Pulse 63 Pulse Source Pulse Oximeter Temp 96.9 F Temp Source Skin Pulse Oximetry (%) 99 Oxygen Delivery Method Room Air Intake Visit Reasons: bump w/puss Intake Note: Patient is here to follow up on bump with puss on the back of head and blood nose. Recreational Vehicle Repairer Required: No Aircraft Inspector: Present Accompanied by: staff Allergies Sulfa (Sulfonamide Antibiotics) [SULFA(SULFONAMIDE ANTIBIOTICS)] Allergy (Intermediate, Verified 08/07/24 15:38) ITCHING Medication List - Last Reconciled 08/07/24 by Mini Mcbride PA-C acetaminophen (Tylenol) 650 mg (2 x 325 mg) PO Q6H PRN amlodipine 5 mg PO DAILY arformoterol 2 mL inhalation BID ascorbic acid (vitamin C) (Vitamin C) 500 mg PO DAILY aspirin 81 mg PO DAILY bisacodyl (Dulcolax (bisacodyl)) 10 mg (2 x 5 mg) PO BEDTIME bisacodyl (Dulcolax (bisacodyl)) 10 mg UT DAILY PRN blood sugar diagnostic (FreeStyle Lite Strips) As directed cephalexin 500 mg PO Q6H 10 days cetirizine 10 mg PO DAILY PRN 90 days cholecalciferol (vitamin D3) 1,250 mcg PO QWEEK 12 weeks ciclopirox 0.77% 1 appl topical BID citalopram 20 mg PO DAILY dextromethorphan polistirex ER (Delsym 12 hour) 10 mL PO .QHS PRN diclofenac sodium 1% 4 grams topical QID docusate sodium 200 mg (2 x 100 mg) PO BEDTIME famotidine (Pepcid) 20 mg PO BEDTIME ferrous sulfate 325 mg orally once a day at 4 pm; folic acid 0.8 mg PO DAILY glucagon HCl (Glucagon (HCl) Emergency Kit) 1 mg subcut ONCE PRN guar gum 1 tbsp PO DAILY insulin glargine (Lantus Solostar U-100 Insulin) 15 units subcut BEDTIME insulin lispro (Humalog KwikPen (U-100) Insulin) 1 sliding scale dose See Protocol subcut TIDAC ipratropium-albuterol 0.5 mg-3 mg(2.5 mg base)/3 mL 3 mL inhalation BID 30 days levothyroxine 112 mcg PO DAILY jdnjpg-zxikjvco-zwbkgkh 24,000-76,000 -120,000 unit (Creon) 1 cap PO QID lorazepam (Ativan) 0.5 mg PO BEDTIME PRN metoprolol succinate ER 25 mg See Protocol PO DAILY nystatin 1 appl topical BID PRN omeprazole 20 mg PO DAILY pen needle, diabetic (Comfort EZ Pen [place]) As directed pen needle, diabetic, safety (True Comfort Safety Pen Needle) As directed polyethylene glycol 3350 (Miralax) 17 grams PO DAILY simvastatin 20 mg PO BEDTIME sodium zirconium cyclosilicate (Lokelma) 5 grams orally 3 times a week( every SUN,SUN,Fridays); Mix with water. tamsulosin 0.8 mg (2 x 0.4 mg) PO DAILY@1700 90 days zinc oxide-cod liver oil 40 % (Desitin) 1 appl topical DAILY Tobacco use date assessed: 08/07/24 Dental Screening Dental Screen Date: 07/24/24 [facility]LY [facility] Medical History Cellulitis Constipation Ascites Pericardial effusion Urethral meatal stenosis Mental and behavioral problem Renal insufficiency Hypercholesterolemia Down syndrome GERD (gastroesophageal reflux disease) BPH (benign prostatic hyperplasia) Hypothyroid Anxiety and depression Pseudoseizures Diabetes mellitus type 1 Surgical History Hx of cataract surgery Family History Father Medical history unknown Mother Medical history unknown Maternal Grandfather Prostate cancer Social History Household Members: None Household Members Other:: other residents and staff Housing: Other Housing Other:: jail Alcohol intake: never Comment: 1:1 Sitter Patient Tobacco Use Status: Never used Tobacco e-Cigarette/Vaping Use: Never Used Second Hand Smoke Exposure: No service: No Current occupational status: disabled Cognitive needs: No Hearing needs: No Vision needs: No Questionnaire Thrive Questionnaire Date Thrive assessed: 07/24/24 GAGE-7 AMB Questionnaire GAGE-7 Date GAGE - 7 assessed: 07/24/24 Source: Developed by Drs. Rhys Carvalho, Bernadette Flanagan, Sundeep Gee and colleagues, with an educational odilon from [employer]. Physical exam (Primary Care) Vital Signs: Last Vital Signs Temp 96.9 F 08/07/24 13:37 Pulse 63 08/07/24 13:37 BP 116/66 08/07/24 13:37 Pulse Ox 99 08/07/24 13:37 Oxygen Delivery Method Room Air 08/07/24 13:37 Care Plan Goal for BP management: Blood pressure at goal at 116/66. BMI result Body Mass Index 29.5 BMI Assessment/Plan discussion: High BMI High, discussed plan: lifestyle, weight reduction, dietary and physical activity Tobacco/Smoking Status: Tobacco use Status Tobacco use date assessed 08/07/24 08/07/24 13:43 Patient Tobacco Use Status Never used Tobacco 08/07/24 13:36 e-Cigarette/Vaping Use Never Used 08/07/24 13:36 Thrive Assessment: Date of Thrive Assessment Date Thrive assessed 07/24/24 08/07/24 13:36 Office Procedures I&D Drain 57343-Cimbqyrf of Skin Abscess, simple All charges added?: Procedure code (CPT) selection complete Incision and Drainage Incision and drainage performed by: Mini Mcbride Informed consent given: Yes Consent signed: No (Verbal consent by Patient and staff member) Time out checklist: patient, procedure, site marked/identified, positioning of patient, supplies available, allergies confirmed and team agrees on procedure Time out staff in room: Yes Time out verified: Yes Time out date: 08/07/24 Time out time: 02:00 Location: left scalp Anesthesia: local Incision with: #10 blade Drainage quality: purulent and bloody Probed cavity: Yes Culture taken: No Lesion: erythema, drainage and fluctuance Lesion size (cm): 2 Hemostasis: pressure Cavity management: irrigated and drain Dressing: gauze Patient tolerated procedure: well Complications: No Office Meds lidocaine 1 %-epinephrine 1:100,000 injection solution Performing Provider: Mini Mcbride PA-C [facility] [place] [facility] Administered by: Mini Mcbride PA-C on 08/07/24 15:39 Dose Route Admin Location Dispensed Lot Number Expiration Date [facility] [place] Felt Hat Inspector [employer] Packer 2 mL subcut 2 mL Coding Level of Care Code Est Pt Level 4 (22568) Complex EM visit Add On G2211 Diagnoses Abscess of head L02.811 Epistaxis R04.0 CPT Codes I&D Drain - Drain 1: 50446-Mkbwayme of Skin Abscess, simple ([id number]) Assessment & Plan Assessment & Plan (1) Abscess of head: Code(s): L02.811 - Cutaneous abscess of head [any part, except face] Category: Medical Plan: Abscess was I and D. Patient tolerated procedure well. Will be started on Keflex for cellulitis infection. Will continue to monitor. (2) Epistaxis: Code(s): R04.0 - Epistaxis Category: Medical Plan: Patient had 1 episode of epistaxis. Has not had any additional episodes. Patient can restart his aspirin on Sunday as scheduled. Plan Plan - Discontinue low-dose aspirin as advised by urgent care until the upcoming . - Initiate antibiotic treatment with (Keflex cephalexin), 500 mg four times daily for 10 days, to address the scalp abscess. - Continue warm compresses on the scalp lesion and change the dressing at least once daily. - Monitor the lesion's progress and watch for signs of worsening, such as increased size or drainage. Orders: Orders AMB Incision & Drainage Today L02.811 - Cutaneous abscess of head [any part, except face] Medications: New cephalexin 500 mg PO Q6H 10 days 40 caps 0RF Patient Instructions: Patient Instructions - Continue antibiotic therapy with Keflex, taking it four times daily for 10 days. - Apply warm compresses to the scalp lesion twice a day. - Change the dressing of the scalp lesion once or twice daily. - Refrain from wetting the affected area for three days. - Follow up with your primary care provider if symptoms persist or worsen after completing the antibiotics. - Restart aspirin this coming Sunday, as per the previous medical guidance. - Seek immediate medical attention if you experience a fever, increased pain, or other unusual symptoms. Scribe Plan - Not visible on output: History of Present Illness The patient is a 43-year-old male presenting with concerns regarding a recent nasal bleed and a scalp lesion. The epistaxis occurred over the weekend, prompting an urgent care visit where low-dose aspirin was discontinued for a week as a precautionary measure. The patient was advised to follow up with his primary care provider. There was no significant history of fever associated with the nasal bleed. Additionally, the patient has developed a lesion on the scalp, described as starting small, enlarging, developing a scab, and now leaking blood. The lesion is located at the back of the head and was noted to have increased in size. The patient denied any associated fever with the scalp lesion. A topical application was provided for the inside of the nose. He has not had any nasal bleed since he went to the urgent care and since stopping the aspirin. He is scheduled to restart the aspirin on Sunday. Otherwise they deny any other symptoms complaints or concerns Social History - Resides in a jail living arrangement. - No specifics about employment or educational status. 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 - Engages with roommates and staff, implying a level of social interaction. Review of Systems - General: Reports recent weight loss (down to 127 pounds). - Skin: Denies previous recurrent boils or scalp lesions. - Neurologic: Denies fever, new headaches, or visual changes associated with current complaints. Physical Exam Appearance: Alert. Oriented X3. No acute distress. Patient was staff member at bedside due to history of down syndrome. Head: Normal external exam. Normocephalic. Atraumatic. Noted boil on the scalp, which is scabby and leaking blood. Eyes: Pupils are equal, round, and reactive to light. Extraocular movements intact. Conjunctiva and sclera normal. Eyelids normal. Ears: External auditory canal normal. Throat: Pharynx normal. Uvula midline. Moist mucous membranes. Neck: Normal inspection. Neck supple. Full range of motion. No adenopathy. Thyroid Normal. No meningeal signs. No neck mass noted. Cardiovascular: Normal heart rate and rhythm. Respiratory: No respiratory distress. Painless inspiration. Back: Full range of motion noted. Skin: Skin warm and dry. Normal skin color. Normal skin turgor. Fluctuant abscess to left side of scalp with scabbing and mild bloody drainage. There is no streaking, foreign bodies. There is mild erythema. No additional rashes/lesions/lacerations noted. Extremities: Extremities exhibit normal range of motion. Extremities nontender. Neuro: Oriented X 3. No motor deficit. No sensory deficit. Reflexes normal. Procedure - patient now status post I and D of left scalp abscess. Patient tolerated procedure well. No complications. Plan - Discontinue low-dose aspirin as advised by urgent care until the upcoming weekend. - Initiate antibiotic treatment with (Keflex cephalexin), 500 mg four times daily for 10 days, to address the scalp abscess. - Continue warm compresses on the scalp lesion and change the dressing at least once daily. - Monitor the lesion's progress and watch for signs of worsening, such as increased size or drainage. Patient was informed and verbally consented to the use of an ambient scribe for clinic note documentation during this visit. Discussion Notes During our conversation, I explained to the patient and his director toxicology the diagnosis and management plan for the scalp abscess. We discussed carrying out a minor procedure to drain the abscess, which would involve a small incision to release pus and alleviate the discomfort. I emphasized the importance of completing the entire course of antibiotics to prevent recurrence. We discussed the temporary discontinuation of aspirin as a precaution and outlined the schedule for its recommencement. I also informed them about the potential side effects of Keflex and stressed on the necessity for monitoring progress and contacting the office should symptoms worsen or new symptoms develop. Patient Instructions - Continue antibiotic therapy with Keflex, taking it four times daily for 10 days. - Apply warm compresses to the scalp lesion twice a day. - Change the dressing of the scalp lesion once or twice daily. - Refrain from wetting the affected area for three days. - Follow up with your primary care provider if symptoms persist or worsen after completing the antibiotics. - Restart aspirin this coming Sunday, as per the previous medical guidance. - Seek immediate medical attention if you experience a fever, increased pain, or other unusual symptoms.
[2024-08-07 13:37] VITALS: BP 116/66; PULSE 63; TEMP 36.1; O2SAT 99; BMI 29.5
== END 2024-08-07 14:03 | disposition home or self-care (01) ==
PROVIDERS: PCP Internal Medicine; Visit Provider Physician Assistant Medical
DX: L02.811 Cutaneous abscess of head [any part, except face] (principal); R04.0 Epistaxis

== ENCOUNTER → 2024-08-07 13:23 | Outpatient (BNVA) | payer MEDICARE, MEDICAID, SELFPAY | PROVIDERS: PCP Internal Medicine; Visit Provider Physician Assistant Medical | DX: L02.811 Cutaneous abscess of head [any part, except face] (principal); R04.0 Epistaxis | CPT/HCPCS: 10060; 99212; J2004 ==

== ENCOUNTER 2024-08-16 07:13 | Outpatient (REF) | payer MEDICARE, MEDICAID, SELFPAY ==
--- OUTSIDE RECORDS SUMMARY | 2024-08-16 07:15 | XMS_ITS ---
Author Organization [facility] Address [address] [facility], [place] [address] Care Team Providers Care Qlikview Developer Name Role Phone Boris Mcgowan Primary Care Provider Yaz Ramirez [phone] Encounters Encounter Location Date Provider Diagnosis [address] [address] 07/10/2024 Yaz Kimbrough Plan Of Treatment No Information Progress Notes * Bernard PERALESDOB:1980 ([age] yo M)Acc No.[id number]:07/10/2024 Progress Note Patient:?Bernard PERALES Provider:?Yaz Kimbrough DPM :1980???Age:43 Y???Sex:Male Sanjay e:07/10/2024 Address:[address] [place], [place] [id number] Pcp:Boris Mcgowan Subjective: * Chief Complaints: * ??? * Medical History:? Objective: * Vitals:? Assessment: Plan: * Treatment: * Images: * The named appointment provid er may or may not be the originator of this progress note, and it is not deemed complete until electronically signed by the appointment provider. Sign off status: Pending * Provider:Frederic Kimbrough DPM Date:?2023 Generated for Glendy wright/Lita/eTransmitting on:?08/16/2024 07:15 AM EST
--- OUTSIDE RECORDS SUMMARY | 2024-08-16 07:15 | XMS_ITS ---
Author Organization [facility] Address [address] [place] [address] Care Team Providers Care V/Stol Landing Signal Officer Name Role Phone Boris Mcgowan Primary Care Provider Yaz Ramirez Unavailable [phone] REASON FOR VISIT No Show Encounters Encounter Location Date Provider Diagnosis [facility] [address] [place] [address] 07/10/2024 Yaz Kimbroguh Plan Of Treatment No Information Progress Notes * Bernard NAVARRODOB:1980 ([age] yo M)Acc No.[id number]:07/10/2024 Patient:?ANGELLABernard :1980???Age:43 Y???Sex:Male Address:[address] [place] [address], [address] * true * Date:? Generated for Glendy wright/Lita/eTransmitting on:?08/16/2024 07:15 AM EST
--- OUTSIDE RECORDS SUMMARY | 2024-08-16 07:16 | XMS_ITS ---
[facility] Address [address] [facility] [place] [address] Care Team Providers Care Adult Parole Officer Name Role Phone Boris Mcgowan Primary Care Provider Unavailabl e Luis EYaz Unavailable [phone] Allergies Allergen (clinical drug ingredient) Drug/Non Drug Allergy documented on EMR Reaction Allergy Type Onset Date Status Substance with sulfonamide structure and antibacterial mechanism of action (substance) Sulfa Antibiotics Unknown Drug Allergy Active REASON FOR VISIT Painful nail(s) aggrevated by shoes and causing difficulty standing/walking., At Risk Footcare Medications Medication SIG (Take, Route, Frequency, Duration) Notes Start Date End Date Status DuoNeb Not-Taking Colace Not-Taking CeleXA 10 MG 1 tablet Orally Once a day for 30 days Not-Taking Basaglar KwikPen Not -Taking Arformoterol Tartrate 15 MCG/2ML 2 mL Inhalation Twice a day Not-Taking Flomax 0.4 MG 2 capsule Orally Onc e a day Not-Taking Benefiber Not-Taking Ciclopirox Olamine 0.77 % 1 application Externally Twice a day for 30 days Not-Taking Voltaren 1 % as needed Externally every 6 hours as needed for 30 days 03/08/2023 Not-Taking Senna Not-Taking Lisinopril 5 MG 1 tablet Orally Once a day for 30 day(s) Not-Taking Ciclopirox Olamine 0.77 % 1 APPLICATION EXTERNALLY TWICE A DAY TO THE AFFECTED AREA FOR 30 DAYS for 30 Not-Taking Citalopram Hydrobromide 20 MG 1 tablet Orally Once a day for 30 day(s) Not-Taking Ativan 0.5 MG 1 tablet at bedtime as needed Orally Once a day Not-Taking Vitamin D3 Active Vitamin C Active Tylenol Active Tamsulosin HCl 0.4 MG 2 caps Orally Once a day Active Systane Active Simvastatin 10 MG 2 tablets in the evening Orally Once a day Active Pepcid AC 10 MG 1 tablet as needed Orally Twice a day Active Omeprazole 20 MG 1 capsule 30 minutes before morning meal Orally Once a day for 30 day(s) Active Norvasc 2.5 MG 1 tablet Orally Once a day Active Nystatin Active Levothyroxine Sodium 100 MCG 1 tablet in the morning on an empty stomach Orally Once a day for 30 day(s) Active Metoprolol Succinate 25 MG 1 capsule Orally Once a day Active MiraLax Active Lokelma 5 GM 1 packet dissolved i n water Orally Active Lantus 100 UNIT/ML as directed Subcutaneous Active Ipratropium [place] Active HumaLOG Active Glucose 4 GM PRN Orally Active Folic Acid 800 MCG 1 tablet Orally Once a day for 30 day(s) Active Ferrous Sulfate 325 (65 Fe) MG 1 tablet Orally Three times a Week Active Dulcolax Active Docusate Sodium Acti ve Desitin Active Creon 35582-92396 UNIT as directed Orally Active Cetirizine HCl 10 MG 1 tablet Orally Onc e a day for 30 day(s) Active Azithromycin 250 MG as directed Orally Active Depakote 250 MG 1 tablet Orally Twic e a day Not-Taking ZyrTEC Allergy 10 MG 1 tablet Orally Onc e a day for 30 day(s) Not-Taking Aspirin 81 MG 1 tablet Orally Once a day for 30 day(s) Active ZyPREXA 2.5 MG 1 tablet Orally Once a day for 30 day(s) Not-Taking Vitamin D 25 MCG (1000 UT) 1 tablet Orally Once a day for 30 day(s) Not-Taking OLANZapine 2.5 MG 1 tablet Orally PRN Not-Taking Folvite-Fe Not-Takin g Social History Tobacco Use: Social History Observation Description Date Details (start date - stop date) Never Smoker NA - NA Tobacco Use/Smoking Question Answer Notes Are you a: nonsmoker Additional Findings: Tobacco Non-User Current no n-smoker Alcohol Screen Question Answer Notes Did you have a drink containing alcohol in the p ast year? No Points 0 Interpretation Negative Tobacco use other than smoking: Question Answer Notes Are you an other tobacco user? No Vital Signs Weight 132 lbs 04/04/2024 BMI 28.56 kg/m2 04/04/2024 Procedures Procedure Date Ordered Date Performed Result Body Sit e 90297-QWZPVVV NAIL, 6 OR MORE 04/04/2024 N/A 38268-PMXJ SKIN LESIONS, OVER 4 04/04/2024 N/A Encounters Encounter Location Date Provider Diagnosis [facility] [address] [address] 04/04/2024 Yaz Black Tinea unguium B35.1 and Type 1 diabetes mellitus with diabetic polyneuropathy E10.42 Assessments Encounter Date Diagnosis (ICD Code) Assessment Notes Treatment Notes Treatment Clinical Notes Section Notes 04/04/2024 Tinea unguium (ICD-10 - B35.1) 04/04/2024 Type 1 diabetes mellitus with diabetic polyneuropathy (ICD-10 - E10.42) Plan Of Treatment Pending Test Test Name Order Date [id number] NAIL, 6 OR MORE 04/04/2024 56030-EREZ SKIN LESIONS, OVER 4 04/04/20 24 Next Appt Details Follow Up: prn, Reason: Procedure Notes * Category Sub-Category Detail Notes Debride Nail 6-10 Nail debridement Performance o f this nail treatment by a nonprofessional would put this patients foot and overall health at risk. Therefore, nail debridement was performed extensively to reduce/remove overall nail length, girth, thickness, subungual debris, and necrotic tissue, by manual and/or electrical means through the use of a nail nipper and/or dremel-type grinder operator automatic, to a more viable healthy nail plate or bed tissue 6-10. Silver nitrate used for any petechial bleeding as necessary. Definitive antifungal treatment options have been reviewed and discussed with the patient. The patient chooses, no pharmaceutical tx - [address]43 Keratoma Treatment Parring or Cutting o f Benign Hyperkeratotic Lesion(s) 29734 ( >4 Lesions) - The Benign hyperkeratotic lesions, as described above were pared, and/or cut utilizing a sterile #15 blade, tissue nippers, and/or dremel Progress Notes * Bernard NAVARRODOB:1980 ([age] yo M)Acc No.[id number]:04/04/2024 Progress Note Patient:?RamonBernard Provider:?Yaz Kimbrough DPM :1980???Age:43 Y???Sex:Male Sanjay e:04/04/2024 Address:[address] [place] [address] , [place] [address] Pcp:Boris Mcgowan Subjective: * Chief Complaints: * ???Painful nail(s) aggrevate d by shoes and causing difficulty standing/walking.At Risk Footcare * HPI: ???Painful Nails:?Pt States Last PCP Visit:?Date:?03/07/2024 * Medical History:? * Surgical History:?bunionecto my- right foot Tooth extraction x4 06/26/23, 07/10/23 * Hospitalization/Major Diagno stic Procedure:?[facility]- elevated sugar 01/2022[facility]- Yeast Infection - Diabetic Ketoacidosis (DKA) 02/15/23 * Family History:?Mother: kaleigh masterson?Father: alive.? * Social History:?Tobacco Use:?Tobacco Use/Smoking?Are you a:?nonsmoker ?Additional Findings: Tobacco Non-User?Current non-smoker ?Tobacco use other than smoking?Are you an other tobacco user??No ???Drugs/Alcohol:?Drugs?Have you used drugs other than those for medical reasons in the past 12 months??No ?Alcohol Screen?Did you have a drink containing alcohol in the past year??No ?Points?0 ?Interpretation?Negative ???Miscellaneous:?Caffeine: yes, frequency:, 1-2 cups per day Decafe coffee. ?no Children, none. ?Exercise: yes, walking, bowling , ,cornhole. ?Marital status: single. ?Occupation: Unemployed. * Medications:?TakingAspirin 8 1 MG Tablet Delayed Release 1 tablet Orally Once a dayAzithromycin 250 MG Tablet as directed Orally Cetirizine HCl 10 MG Tablet 1 tablet Orally Once a dayCreon 79555-84452 UNIT Capsule Delayed Release Particles as directed Orally Desitin Docusate Sodium Dulcolax Ferrous Sulfate 325 (65 Fe) MG Tablet 1 tablet Orally Three times a WeekFolic Acid 800 MCG Tablet 1 tablet Orally Once a dayGlucose 4 GM Tablet Chewable PRN Orally HumaLOG Ipratropium [place] Lantus 100 UNIT/ML Solution as directed Subcutaneous Lokelma 5 GM Packet 1 packet dissolved in water Orally MiraLax Metoprolol Succinate 25 MG Capsule ER 24 Hour Sprinkle 1 capsule Orally Once a dayLevothyroxine Sodium 100 MCG Tablet 1 tablet in the morning on an empty stomach Orally Once a dayNystatin Norvasc 2.5 MG Tablet 1 tablet Orally Once a dayOmeprazole 20 MG Capsule Delayed Release 1 capsule 30 minutes before morning meal Orally Once a dayPepcid AC 10 MG Tablet 1 tablet as needed Orally Twice a daySimvastatin 10 MG Tablet 2 tablets in the evening Orally Once a daySystane Tamsulosin HCl 0.4 MG Capsule 2 caps Orally Once a dayTylenol Vitamin C Vitamin D3 Taking Aspirin 81 MG Tablet Delayed Release 1 tablet Orally Once a dayTaking Azithromycin 250 MG Tablet as directed Orally Taking Cetirizine HCl 10 MG Tablet 1 tablet Orally Once a dayTaking Creon 08278-44851 UNIT Capsule Delayed Release Particles as directed Orally Taking Desitin Taking Docusate Sodium Taking Dulcolax Taking Ferrous Sulfate 325 (65 Fe) MG Tablet 1 tablet Orally Three times a WeekTaking Folic Acid 800 MCG Tablet 1 tablet Orally Once a dayTaking Glucose 4 GM Tablet Chewable PRN Orally Taking HumaLOG Taking Ipratropium [place] Taking Lantus 100 UNIT/ML Solution as directed Subcutaneous Taking Lokelma 5 GM Packet 1 packet dissolved in water Orally Taking MiraLax Taking Metoprolol Succinate 25 MG Capsule ER 24 Hour Sprinkle 1 capsule Orally Once a dayTaking Levothyroxine Sodium 100 MCG Tablet 1 tablet in the morning on an empty stomach Orally Once a dayTaking Nystatin Taking Norvasc 2.5 MG Tablet 1 tablet Orally Once a dayTaking Omeprazole 20 MG Capsule Delayed Release 1 capsule 30 minutes before morning meal Orally Once a dayTaking Pepcid AC 10 MG Tablet 1 tablet as needed Orally Twice a dayTaking Simvastatin 10 MG Tablet 2 tablets in the evening Orally Once a dayTaking Systane Taking Tamsulosin HCl 0.4 MG Capsule 2 caps Orally Once a dayTaking Tylenol Taking Vitamin C Taking Vitamin D3 Not-Taking/PRNAtivan 0.5 MG Tablet 1 tablet at bedtime as needed Orally Once a dayCitalopram Hydrobromide 20 MG Tablet 1 tablet Orally Once a dayCiclopirox Olamine 0.77 % Cream 1 APPLICATION EXTERNALLY TWICE A DAY TO THE AFFECTED AREA FOR 30 DAYS Lisinopril 5 MG Tablet 1 tablet Orally Once a daySenna Voltaren 1 % Gel as needed Externally every 6 hours as neededCiclopirox Olamine 0.77 % Cream 1 application Externally Twice a dayBenefiber Flomax 0.4 MG Capsule 2 capsule Orally Once a dayArformoterol Tartrate 15 MCG/2ML Nebulization Solution 2 mL Inhalation Twice a dayBasaglar KwikPen CeleXA 10 MG Tablet 1 tablet Orally Once a dayColace DuoNeb Folvite-Fe OLANZapine 2.5 MG Tablet 1 tablet Orally PRNVitamin D 25 MCG (1000 UT) Tablet 1 tablet Orally Once a dayZyPREXA 2.5 MG Tablet 1 tablet Orally Once a dayZyrTEC Allergy 10 MG Tablet 1 tablet Orally Once a dayDepakote 250 MG Tablet Delayed Release 1 tablet Orally Twice a dayNot-Taking/PRN Ativan 0.5 MG Tablet 1 tablet at bedtime as needed Orally Once a dayNot-Taking/PRN Citalopram Hydrobromide 20 MG Tablet 1 tablet Orally Once a dayNot-Taking/PRN Ciclopirox Olamine 0.77 % Cream 1 APPLICATION EXTERNALLY TWICE A DAY TO THE AFFECTED AREA FOR 30 DAYS Not- Taking/PRN Lisinopril 5 MG Tablet 1 tablet Orally Once a dayNot-Taking/PRN Senna Not- Taking/PRN Voltaren 1 % Gel as needed Externally every 6 hours as neededNot-Taking/PRN Ciclopirox Olamine 0.77 % Cream 1 application Externally Twice a dayNot- Taking/PRN Benefiber Not-Taking/PRN Flomax 0.4 MG Capsule 2 capsule Orally Once a dayNot-Taking/PRN Arformoterol Tartrate 15 MCG/2ML Nebulization Solution 2 mL Inhalation Twice a dayNot-Taking/PRN Vane Goff Not-Taking/PRN CeleXA 10 MG Tablet 1 tablet Orally Once a dayNot-Taking/PRN Colace Not-Taking/PRN DuoNeb Not-Taking/PRN Folvite-Fe Not-Taking/PRN OLANZapine 2.5 MG Tablet 1 tablet Orally PRNNot-Taking/PRN Vitamin D 25 MCG (1000 UT) Tablet 1 tablet Orally Once a dayNot-Taking/PRN ZyPREXA 2.5 MG Tablet 1 tablet Orally Once a dayNot-Taking/PRN ZyrTEC Allergy 10 MG Tablet 1 tablet Orally Once a dayNot-Taking/PRN Depakote 250 MG Tablet Delayed Release 1 tablet Orally Twice a day * Allergies:?Sulfa Antibiotics yes[Allergies Verified] Objective: * Vitals:?Wt:132, BMI:28.56, S hoe size:2, BS:172, Ht-cm: 144.78 cm, Wt-k.87 kg. * ???Past Orders: ???Lab:HEMOGLOBIN A1C (GLYCO HEMOGLOBIN) (Order Date - 03/07/2024) (Collection Date - 03/07/2024) ? Value Reference Range ?HEMOGLOBIN A1C % (HH) 9.8 * Examination: ???Ophthalmology Referral: ?DIABETES EYE EXAM?Vascular: ?DP PULSES(B):? 1/4, B/L.?PT PULSES(B):? 2/4, B/L.?CAPILLARY FILL TIME:?immediate, all digits, B/L.?VARICOSITIES:?absent.?Nails: ?NAILS are:?Elongated, overgrown, dystrophic, lytic, greater than 3mm thick, discolored and friable with crumbly malodorous subungual debris, with pain on palpation, 1-5 B/L.?Dermatologic: ?SKIN FINDINGS:?Skin exam reveals keratotic lesion(s) located at, , SUB MTH (s), 1, B/L 2 B/L Medial plantar IPJ TA T5?.?Neurological: ?SENSORY:?Neurological exam demonstrates reduced light touch sensation reduced vibration sensation 5.07 monofilament test performed at plantar aspects of 5 varied sites per foot shows sensation reduced B/L.? Assessment: * Assessment: 1.?Tinea unguium - B35.1?2.? Type 1 diabetes mellitus with diabetic polyneuropathy - E10.42? Plan: * Treatment: 2.?Type 1 diabetes mellitus with diabetic polyneuropathy?Procedure: 01961-LWTM SKIN LESIONS, OVER 4 * Procedures:?Debride Nail 6-10:?Nail debridement?Performance of this nail treatment by a nonprofessional would put this patients foot and overall health at risk. Therefore, nail debridement was performed extensively to reduce/remove overall nail length, girth, thickness, subungual debris, and necrotic tissue, by manual and/or electrical means through the use of a nail nipper and/or dremel-type grinder operator automatic, to a more viable healthy nail plate or bed tissue 6-10. Silver nitrate used for any petechial bleeding as necessary. Definitive antifungal treatment options have been reviewed and discussed with the patient. The patient chooses, no pharmaceutical tx - 05989.?Keratoma Treatment:?Parring or Cutting of Benign Hyperkeratotic Lesion(s)?08747 ( >4 Lesions) - The Benign hyperkeratotic lesions, as described above were pared, and/or cut utilizing a sterile #15 blade, tissue nippers, and/or dremel.? * Procedure Codes:?21996 DEBRI DE NAIL, 6 OR MORE, Modifiers: XS 31900 TRIM SKIN LESIONS, OVER 4, Modifiers: XS * Follow Up:?prn * Images: * Sign off status: Completed true * Provider:Frederic Kimbrough DPM Date:?2023 Generated for Glendy wright/Lita/Georges on:?08/16/2024 07:15 AM EST History and Physical Notes * HPI (History of Present Illness) Category Sub-Category Detail Notes Category Not es Painful Nails Pt States Last PCP Visit: Date:: 03/07/2024 Examination Category Sub-Category Detail Notes Category Not es Neurological SENSORY: Neurological exa m demonstrates reduced light touch sensation reduced vibration sensation 5.07 monofilament test performed at plantar aspects of 5 varied sites per foot shows sensation reduced B/L TINEL'S COMPRESSION: Dermatologic SKIN FINDINGS: Skin exam reveal s keratotic lesion(s) located at, , SUB MTH (s), 1, B/L 2 B/L Medial plantar IPJ TA T5 Ophthalmology Referral DIABETES EYE EXAM Diabeti c Retinopathy Screening:: Yes 04/2023 Vascular DP PULSES (B): 1/4, B/L PT PULSES (B): 2/4, B/L CAPILLARY FILL TIME: immediate, all digi ts, B/L VARICOSITIES: absent Nails NAILS are: Elongated, overg rown, dystrophic, lytic, greater than 3mm thick, discolored and friable with crumbly malodorous subungual debris, with pain on palpation, 1-5 B/L
--- OUTSIDE RECORDS SUMMARY | 2024-08-16 07:16 | XMS_ITS | Clinical Summary ---
Author Organization [facility] Facility Address [address] [address] Care Team Providers Care Control Operator Name Role Phone Boris Mcgowan MD Primary Care Provider [phone] Allergies No known active allergies Medications aspirin (ST VALENCIA) 81 MG EC tablet Take 1 tablet by mouth 1 (one) time each day Active ascorbic acid (VITAMIN C) 500 MG CR capsule Take 1 capsule by mouth 1 (one) time each day Active cetirizine (ZyrTEC) 10 MG tablet Take 1 tablet by mouth 1 (one) time each day Active cholecalciferol (VITAMIN D-3) 25 MCG (1000 UT) capsule Take 1 capsule by mouth 1 (one) time each day Active citalopram (CeleXA) 20 MG tablet Take 1 tablet by mouth 1 (one) time each day Active citalopram (CeleXA) 20 MG tablet Take 1 tablet by mouth 1 (one) time each day 10/14/2020 Active divalproex (DEPAKOTE) 500 MG EC tablet Take 1 tablet by mouth 2 (two) times a day Active docusate sodium (Colace) 100 MG capsule Take 1 capsule by mouth 1 (one) time each day Active DOK 100 MG capsule Take 100 mg by mouth 2 (two) times a day 10/01/2020 Active famotidine (Pepcid AC) 10 MG tablet Take 1 tablet by mouth 2 (two) times a day Active ferrous sulfate 325 (65 Fe) MG EC tablet Take 1 tablet by mouth 1 (one) time each day Active folic acid (FOLVITE) 800 MCG tablet Take 1 tablet by mouth 1 (one) time each day Active insulin glargine (Lantus SoloStar) 100 UNIT/ML injection 1 pre-filled pen syringe Active Insulin Lispro, 1 Unit Dial, (HumaLOG KWIKPEN) 100 UNIT/ML solution pen-injector Inject 1 pre-filled pen syringe under the skin Active lisinopril (PRINIVIL,ZESTR IL) 5 MG tablet Take 1 tablet by mouth 1 (one) time each day Active levothyroxine (SYNTHROID, LEVOTHROID) 100 MCG tablet Take 100 mcg by mouth 1 (one) time each day 10/01/2020 Active simvastatin (ZOCOR) 5 MG tablet Take 1 tablet by mouth 1 (one) time each day 08/02/2020 Active tamsulosin (FLOMAX) 0.4 MG 24 hr capsule Take 2 capsules by mouth 1 (one) time each day Active Active Problems Problem Noted Date Diagnosed Date Chronic kidney disease stage 3 10/21/2020 Disorder of plasma protein metabolism 10/21/2020 Hypercholesterolemia 10/21/2020 Hyposmolality and/or hyponatremia 10/21/2020 Proteinuria 10/21/2020 Renal disorder due to type 1 diabetes mellitus 0 10/21/2020 Type 1 diabetes mellitus 10/21/2020 Family History Relation Status Comments Father Unknown Mother Alive Social History Tobacco Use Types Packs/Day Years Used Date Smoking Tobacco: Never Smokeless Tobacco: Never Alcohol Use Standard Drinks/Week Comments No 0 (1 standard drink = 0.6 oz pur e alcohol) Sex and Gender Information Value Date Recorded Sex Assigned at Not on file Legal Sex Male 4:48 PM EST Gender Identity Not on file Sexual Orientation Not on file Last Filed Vital Signs Vital Sign Reading Time Taken Comments Blood Pressure 158/70 10/21/2020 2:52 PM EDT Pulse 62 10/21/2020 2:52 PM EDT Temperature - - Respiratory Rate - - Oxygen Saturation 99% 12/23/2018 12:00 PM EDT Inhaled Oxygen Concentration - - Weight 59.9 kg (132 lb) 10/21/2020 2:52 PM EDT Height 142.2 cm (4' 8 ) 06/13/2019 12:00 PM EST Body Mass Index 29.59 06/13/2019 12:00 PM EST Plan of Treatment Health Maintenance Due Date Last Done Comments Pneumococcal Vaccine: Pediat rics (0 to 5 Years) and At-Risk Patients (6 to 64 Years) (1 of 2 - PCV) 1986 Hepatitis B Vaccine (1 of 3 - 19+ 3-dose series) 11/24 Diabetes: Hemoglobin A1C 08/23/2020 Diabetes: Ophthalmology Exam 08/23/2020 Diabetes: Pedal Pulse Checked 08/23/2020 Diabetes: Sensory Foot Exam 08/23/2020 Diabetes: Visual Foot Exam 08/23/2020 Influenza Vaccine (#1) 2024 Insurance [place] Care Teams Control Operator Relationship Specialty Start Date End Date Boris Mcgowan MD [address] [place] PCP - General 08/02/20
[2024-08-16 07:28] LABS: MANUAL DIFF FLAG NO
[2024-08-16 07:31] LABS: Basophils Absolute Auto 0.1 X10*3/uL (0.0-0.2); Basophils Percent Auto 2.3 % (0-2); Eosinophils Absolute Auto 0.5 X10*3/uL (0.0-0.4); Eosinophils Percent Auto 9.3 % (0-4); Hematocrit 34.8 % (42.0-52.0); Hemoglobin 11.4 g/dl (14.0-18.0); Imm Gran Abs Auto 0.03 X10*3/uL (0.00-0.03); Imm Gran Pct Auto 0.6 % (0.0-0.4); Lymphocytes Absolute Auto 0.9 X10*3/uL (1.2-4.9); Lymphocytes Percent Auto 17.2 % (20-40); Mean Corpuscular HGB Conc 32.8 g/dl (31.0-36.0); Mean Corpuscular Hemoglobin 29.9 pg (27.0-33.0); Mean Corpuscular Volume 91.3 fL (80.0-98.0); Mean Platelet Volume 8.8 fL (9.4-12.4); Monocytes Absolute Auto 0.4 X10*3/uL (0.1-1.2); Monocytes Percent Auto 7.9 % (2-11); Neutrophils Absolute Auto 3.2 x10*3/uL (2.0-8.3); Neutrophils Percent Auto 62.7 % (45-73); Platelet Count 400 X10*3/uL (160-400); Red Blood Count 3.81 X10*6/uL (4.60-5.80); Red Cell Distribution Width 14.4 % (11.0-16.0); White Blood Count 5.2 X10*3/uL (4.8-10.8)
[2024-08-16 07:52] LABS: Parathyroid Hormone Intact 142.3 pg/mL (8.7-77.1)
[2024-08-16 07:54] LABS: Alanine Aminotransferase 26 U/L (0-40); Albumin Level 2.4 g/dL (3.5-5.0); Alkaline Phosphatase 86 U/L (39-117); Anion Gap 9 (12-20); Aspartate Amino Transferase 20 U/L (5-37); Bilirubin Total 0.2 mg/dL (0.0-1.0); Blood Urea Nitrogen 46 mg/dL (9-16); Calcium 8.2 mg/dL (8.4-10.2); Carbon Dioxide 24 mmol/L (22-29); Chloride 110 mmol/L (96-108); Cholesterol 190 mg/dL (<200); Estimated Glomerular Filt Rate 42; Glucose Random 238 mg/dL (60-115); HDL Cholesterol 47 mg/dL (>40); LDL Cholesterol Calculated 122 mg/dL (<100); Potassium 4.6 mmol/L (3.3-5.1); Sodium 138 mmol/L (135-145); Total Protein 5.8 g/dL (6.5-8.0); Triglycerides 108 mg/dL (<150)
[2024-08-16 08:06] LABS: Free T4 (Free Thyroxine) 0.97 ng/dL (0.71-1.85)
[2024-08-16 08:24] LABS: Thyroid Stimulating Hormone 4.52 uIU/mL (0.32-4.0)
== END 2024-08-16 07:14 | disposition home or self-care (01) ==
LOC: HO.LAB 07:13
PROVIDERS: Internal Medicine Hypertension Specialist; PCP Internal Medicine; Visit Provider Internal Medicine
DX: E87.5 Hyperkalemia (principal); N18.9 Chronic kidney disease, unspecified; E78.00 Pure hypercholesterolemia, unspecified
CPT/HCPCS: 36415; 80053; 80061; 83970; 84439; 84443; 85025

== ENCOUNTER 2024-09-15 15:14 | Outpatient (AMB) | payer MEDICARE, MEDICAID, SELFPAY ==
[2024-09-15 15:28] VITALS: BP 130/70; PULSE 60; O2SAT 97; BMI 30.2
--- NOTE | 2024-09-15 15:28 | HO.NEPHOV ---
Vital Signs 09/15/24 15:28 Height 4 ft 7 in Weight 130 lb BMI 30.2 BP 130/70 Blood Pressure Location Lt brachial Position Sitting Pulse 60 Pulse Source Pulse Oximeter Pulse Oximetry (%) 97 Oxygen Delivery Method Room Air Intake Visit Reasons: CKD Tire Layer Required: No Accompanied by: Mines Safety Engineer Allergies Sulfa (Sulfonamide Antibiotics) [SULFA(SULFONAMIDE ANTIBIOTICS)] Allergy (Intermediate, Verified 09/15/24 15:29) ITCHING Medication List - Last Reconciled 09/15/24 by Pineda Tarango MD acetaminophen (Tylenol) 650 mg (2 x 325 mg) PO Q6H PRN amlodipine 5 mg PO DAILY arformoterol 2 mL inhalation BID ascorbic acid (vitamin C) (Vitamin C) 500 mg PO DAILY aspirin 81 mg PO DAILY azithromycin 250 mg PO .Sunday 30 days bisacodyl (Dulcolax (bisacodyl)) 10 mg (2 x 5 mg) PO BEDTIME bisacodyl (Dulcolax (bisacodyl)) 10 mg [place] DAILY PRN blood sugar diagnostic (FreeStyle Lite Strips) As directed cephalexin 500 mg PO Q6H 10 days cetirizine 10 mg PO DAILY PRN 90 days cholecalciferol (vitamin D3) 1,250 mcg PO QWEEK 12 weeks ciclopirox 0.77% 1 appl topical BID citalopram 20 mg PO DAILY dextromethorphan polistirex ER (Delsym 12 hour) 10 mL PO .QHS PRN diclofenac sodium 1% 4 grams topical QID docusate sodium 200 mg (2 x 100 mg) PO BEDTIME famotidine (Pepcid) 20 mg PO BEDTIME ferrous sulfate 325 mg orally once a day at 4 pm; folic acid 0.8 mg PO DAILY glucagon HCl (Glucagon (HCl) Emergency Kit) 1 mg subcut ONCE PRN guar gum 1 tbsp PO DAILY insulin glargine (Lantus Solostar U-100 Insulin) 15 units subcut BEDTIME insulin lispro (Humalog KwikPen (U-100) Insulin) 1 sliding scale dose See Protocol subcut TIDAC ipratropium-albuterol 0.5 mg-3 mg(2.5 mg base)/3 mL 3 mL inhalation BID 30 days levothyroxine 112 mcg PO DAILY aqxoxl-zvfhysjb-blxsxie 24,000-76,000 -120,000 unit (Creon) 1 cap PO QID lorazepam (Ativan) 0.5 mg PO BEDTIME PRN metoprolol succinate ER 25 mg See Protocol PO DAILY nystatin 1 appl topical BID PRN omeprazole 20 mg PO DAILY pen needle, diabetic (Comfort EZ Pen [place]) As directed pen needle, diabetic, safety (True Comfort Safety Pen Needle) As directed polyethylene glycol 3350 (Miralax) 17 grams PO DAILY simvastatin 20 mg PO BEDTIME sodium zirconium cyclosilicate (Lokelma) 5 grams orally 3 times a week( every SUN,SUN,Fridays); Mix with water. tamsulosin 0.8 mg (2 x 0.4 mg) PO DAILY@1700 90 days zinc oxide-cod liver oil 40 % (Desitin) 1 appl topical DAILY HPI Comments Details: Bernard has been referred for evaluation of chronic disease and hyperkalemia. Bernard is well known to me. He has previously seen in 2020. He has a history of Down syndrome and diabetes mellitus complicated by chronic disease. He has significant proteinuria in the setting of longstanding diabetes medicine the working diagnosis is diabetic kidney disease. Serum creatinine has been fluctuating between 1.5 and 1.7 mg/dL. Recently serum creatinine was found to be at 2.0. He has also had recurrent episodes of hyperkalemia. Last month potassium was 5.7 however about a week ago potassium was 2.0. He has been referred for further evaluation. He is being followed by urology for BPH and a history of meatal stenosis. In the past he had no evidence of obstructive uropathy based on imaging studies. Today was accompanied by caregiver. No specific complaints today. No nausea vomiting. No diarrhea constipation. He is on MiraLax and has bowel movements every day. No shortness of breath cough or expectoration. No urine symptoms. No edema no fever no rash. 01/31/24;Amlodipine discontinued 05/01/24 ;History obtained from customer care voice consultant ;Home BP around 140; Blood sugar sub optimal ;A1C at 9.4 % 09/15/24 c/o Right flank pain ;No urinary symptoms PFSH Medical History Cellulitis Constipation Ascites Pericardial effusion Urethral meatal stenosis Mental and behavioral problem Renal insufficiency Hypercholesterolemia Down syndrome GERD (gastroesophageal reflux disease) BPH (benign prostatic hyperplasia) Hypothyroid Anxiety and depression Pseudoseizures Diabetes mellitus type 1 Surgical History Hx of cataract surgery Family History Father Medical history unknown Mother Medical history unknown Maternal Grandfather Prostate cancer Social History Household Members: None Household Members Other:: other residents and staff Housing: Other Housing Other:: penitentiary Alcohol intake: never Comment: 1:1 Sitter Patient Tobacco Use Status: Never used Tobacco e-Cigarette/Vaping Use: Never Used Second Hand Smoke Exposure: No service: No Current occupational status: disabled Cognitive needs: No Hearing needs: No Vision needs: No Physical Exam Vital Signs: Last Vital Signs Pulse 60 09/15/24 15:28 BP 130/70 09/15/24 15:28 Pulse Ox 97 09/15/24 15:28 Oxygen Delivery Method Room Air 09/15/24 15:28 BMI result Body Mass Index 30.2 GI Other: Adb - soft Non tender BS normal Results Reviewed Nephrology Results: Hgb 11.4 g/dl (14.0-18.0) L 08/16/24 WBC 5.2 X10*3/uL (4.8-10.8) 08/16/24 Plt Count 400 X10*3/uL (160-400) 08/16/24 Sodium 138 mmol/L (135-145) 08/16/24 Potassium 4.6 mmol/L (3.3-5.1) 08/16/24 Chloride 110 mmol/L (96-108) H 08/16/24 Carbon Dioxide 24 mmol/L (22-29) 08/16/24 BUN 46 mg/dL (9-16) H 08/16/24 Creatinine 1.78 mg/dL (0.5-1.4) H 08/16/24 Calcium 8.2 mg/dL (8.4-10.2) L 08/16/24 PTH Intact 142.3 pg/mL (8.7-77.1) H 08/16/24 Assessment & Plan Assessment & Plan (1) Hyperkalemia: Code(s): E87.5 - Hyperkalemia Category: Medical (2) Renal insufficiency: Code(s): N28.9 - Disorder of kidney and ureter, unspecified Category: Medical (3) CKD (chronic kidney disease): Code(s): N18.9 - Chronic kidney disease, unspecified Category: Medical Plan . 43-year-old man with Down syndrome and longstanding diabetes mellitus has chronic disease. gradual increase in creatinine with hyperkalemia. CKD is probably due to diabetic kidney disease. Nephrotic range proteinria history of meatal stenosis and phimosis Watch for urinary retention Clinically there is no evidence of obstruction at this time. Being followed by Urology Renal ultrasound reported normal Was on low-dose of ADRIANA-inhibitor for renal protection. Stopped due to Hyperkalemia and LOW BP Goal is to slow the progression of kidney disease Continue to avoid nephrotoxic agents including NSAIDs. Hyperkalemia is due to decreased potassium excretion in the setting of CKD. Needs to stay on low-potassium diet Keep Lokelma 5 g to be taken 3 times a week. Unable to add Lisinopril due to High K Follow potassium Vitamin-D deficiency HTN - BP acceptable Reportedly BP is well controlled at home as per customer care voice consultant Keep Amlodipine 5 mg DAILY and titrate to 10 mg QD if BP stays above 140 mmHG Hypothyroidism TSH is elevated On Levothyroid and being follwed by Endocrine No changes were made today Orders: Orders Basic Metabolic Panel 4 Months N18.9 - Chronic kidney disease, unspecified Coding Level of Care Code Est Pt Level 4 (51746) Diagnoses Hyperkalemia E87.5 Renal insufficiency N28.9 CKD (chronic kidney disease) N18.9
--- OUTSIDE RECORDS SUMMARY | 2024-09-15 17:32 | XMS_ITS ---
Author Organization [facility] Address [address] [place] [address] Care Team Providers Care Railway Switch Operator Name Role Phone Boris Mcgowan Primary Care Provider Yaz Ramirez [phone] REASON FOR VISIT No Show Encounters Encounter Location Date Provider Diagnosis [address] [address] 07/10/2024 Yaz Kimbrough Plan Of Treatment Next Appt Details Provider Name:Yaz Parvez Kimbrough , 12/16/2024 03:30:00 PM, [address] [facility], [place], [address], Progress Notes * Bernard NAVARRODOB:1980 ([age] yo M)Acc No.[id number]:07/10/2024 Patient:?ANGELLA Bernard :1980???Age:43 Y???Sex:Male Address:[address] [place] [address], [address] * true * Date:? Generated for Printi adriana/Lita/eTransmitting on:?09/15/2024 05:32 PM EST
--- OUTSIDE RECORDS SUMMARY | 2024-09-15 17:32 | XMS_ITS | Patient Health Record ---
[facility] Address [address] [place] [place] [address] Care Team Providers Care Geospatial Intelligence Analyst Name Role Phone Boris Mcgowan Primary Care Provider Yaz Ramirez Unavailable [phone] Allergies Allergen (clinical drug ingredient) Drug/Non Drug Allergy documented on EMR Reaction Allergy Type Onset Date Status Substance with sulfonamide structure and antibacterial mechanism of action (substance) Sulfa Antibiotics Unknown Drug Allergy Active Results Component Value Reference Range Notes HEMOGLOBIN A1C (GLYCOHEMOGLO BIN) Reviewed date:04/04/2024 12:54:16 PM Interpretation: Performing Lab: Notes/Report: HEMOGLOBIN A1C % (HH) 9.8 HEMOGLOBIN A1C (GLYCOHEMOGLO BIN) Reviewed date:09/09/2024 03:25:45 PM Interpretation: Performing Lab: Notes/Report: HEMOGLOBIN A1C % (HH) 9.8 HEMOGLOBIN A1C (GLYCOHEMOGLO BIN) Reviewed date:01/07/2024 10:05:06 AM Interpretation: Performing Lab: Notes/Report: HEMOGLOBIN A1C % (HH) 9.6 Reason For Referral No Information Medications Medication SIG (Take, Route, Frequency, Duration) Notes Start Date End Date Status Colace Not-Taking DuoNeb Not-Taking CeleXA 10 MG 1 tablet Orally Once a day for 30 days Active Delsym 10ml at bed prn Active Vitamin D 25 MCG (1000 UT) 1 tablet Orally Once a day for 30 day(s) Not-Taking Pepcid AC 20mg once a day Active ZyPREXA 2.5 MG 1 tablet Orally Once a day for 30 day(s) Not-Taking Folvite-Fe Not-Takin g OLANZapine 2.5 MG 1 tablet Orally PRN Not-Taking Cetirizine HCl 10 MG 1 tablet Orally Once a day for 30 day(s) Active Creon 36563-[address] UNIT as directed Orally Active Aspirin 81 MG 1 tablet Orally Once a day for 30 day(s) Active ZyrTEC Allergy 10 MG 1 tablet Orally Once a day for 30 day(s) Not-Taking Azithromycin 250 MG as directed Orally Active Depakote 250 MG 1 tablet Orally Twice a day Not-Taking Dulcolax Active Desitin Active Docusate Sodium Acti ve Glucose 4 GM PRN Orally Active HumaLOG sliding scale Active Ferrous Sulfate 325 (65 Fe) MG 1 tablet Orally every day Active Folic Acid 800 MCG 1 tablet Orally Once a day for 30 day(s) Active Lokelma 5 GM 1 packet dissolved in water Orally Active MiraLax Active Ipratropium [place] Active Lantus 100 UNIT/ML as directed Subcutaneous 15 units Active Metoprolol Succinate 25 MG 1 capsule Orally Once a day Active Levothyroxine Sodium 100 MCG 1 tablet in the morning on an empty stomach Orally Once a day for 30 day(s) Active Nystatin Active Simvastatin 10 MG 2 tablets in the evening Orally Once a day Active Systane Active Norvasc 2.5 MG 1 tablet Orally Once a day Active Omeprazole 20 MG 1 capsule 30 minutes before morning meal Orally Once a day for 30 day(s) Active Voltaren 1 % as needed Externally every 6 hours as needed for 30 days 03/08/2023 Active Vitamin C Active Vitamin D3 Active Tamsulosin HCl 0.4 MG 2 caps Orally Once a day Active Tylenol Active Ciclopirox Olamine 0.77 % 1 application Externally Twice a day to skin of feet including between the toes for 30 days Active Ativan 0.5 MG 1 tablet at bedtime as needed Orally Once a day Active Citalopram Hydrobromide 20 MG 1 tablet Orally Once a day for 30 day(s) Not-Taking Ciclopirox Olamine 0.77 % 1 APPLICATION EXTERNALLY TWICE A DAY TO THE AFFECTED AREA FOR 30 DAYS for 30 Not-Taking Ciclopirox Olamine 0.77 % 1 application Externally Twice a day for 30 days Not-Taking Lisinopril 5 MG 1 tablet Orally Once a day for 30 day(s) Not-Taking Senna Not-Taking Arformoterol Tartrate 15 MCG/2ML 2 mL Inhalation Twice a day Not-Taking Basaglar KwikPen Not -Taking Benefiber Not-Taking Flomax 0.4 MG 2 capsule Orally Once a day Not-Taking Immunizations Vaccine Route Administration Date Status Comme nts COVID-19 Moderna Vaccine Unknown 09/19/2020 Administere d 1st dose 08/29/2020 Influenza Unknown 05/09/2021 Administered Influenza Unknown 05/10/2023 Administered Social History Tobacco Use: Social History Observation Description Date Details (start date - stop date) Never Smoker NA - NA Alcohol Screen Question Answer Notes Did you have a drink containing alcohol in the p ast year? No Points 0 Interpretation Negative Tobacco use other than smoking: Question Answer Notes Are you an other tobacco user? No Tobacco Control (Standard) Question Answer Notes Tobacco use: Nonsmoker Additional Findings: Tobacco non-user Current no nsmoker Problems Problem Type SNOMED Code ICD Code Onset Dates Problem Status W/U Status Risk Notes Problem Acquired hallux valgus (96975984) Hallux valgus (acquired), left foot (M20.12) Active confirmed Problem Acquired hallux valgus (14599167) Hallux valgus (acquired), right foot (M20.11) Active confirmed Problem Acquired hallux valgus (02868716) Hallux valgus (acquired), right foot (M20.11) Active confirmed Problem Acquired hammer toe of right foot (9292303889688156 ) Other hammer toe(s) (acquired), right foot (M20.41) Active confirmed Problem Acquired hammer toe of left foot (5330109156380322 ) Other hammer toe(s) (acquired), left foot (M20.42) Active confirmed Problem Polyneuropathy due to diabetes mellitus type I (735900733) Type 1 diabetes mellitus with diabetic polyneuropathy (E10.42) Active confirmed Problem Arthritis (9099641) Arthritis (M19.90) Active confirmed Vital Signs Heart Rate 68 /min 09/27/2023 Blood pressure diastolic 71 mm Hg 09/09/2024 Height 4ft 9in in 09/09/2024 Blood pressure systolic 120 mm Hg 09/09/2024 Weight 132 lbs 09/09/2024 BMI 28.56 kg/m2 09/09/2024 Procedures Procedure Date Ordered Date Performed Result Body Sit e 59947-DHCMGIC NAIL, 6 OR MORE 09/27/2023 N/A 22748-MGRU SKIN LESIONS, OVER 4 09/27/2023 N/A 02127, S9937-MQZUK/INJECT, JOINT/BURSA 09/27/2023 N/A 14745-OKKMFTQ NAIL, 6 OR MORE 01/07/2024 N/A 98246-STZV SKIN LESIONS, OVER 4 01/07/2024 N/A 75436-LMBWADZ NAIL, 6 OR MORE 04/04/2024 N/A 29067-OPQB SKIN LESIONS, OVER 4 04/04/2024 N/A 32932-RSGGPOQ NAIL, 6 OR MORE 09/09/2024 N/A 62895-OQDO SKIN LESIONS, OVER 4 09/09/2024 N/A Encounters Encounter Location Date Provider Diagnosis [address] [address] 09/27/2023 Yaz Black Type 1 diabetes mellitus with diabetic polyneuropathy E10.42 ; Hallux valgus (acquired), right foot M20.11 ; Tinea unguium B35.1 ; Pain in right toe(s) M79.674 ; Pain in left toe(s) M79.675 ; Pain in right foot M79.671 ; Pain in right ankle and joints of right foot M25.571 ; Bursitis of right foot M77.51 and Arthritis M19.[address] [address] 01/07/2024 Yaz Black Hallux valgus (acquired), right foot M20.11 ; Tinea pedis of both feet B35.3 ; Type 1 diabetes mellitus with diabetic polyneuropathy E10.42 ; Tinea unguium B35.1 ; Pain in right toe(s) M79.674 ; Pain in left toe(s) M79.675 ; Pain in right foot M79.671 ; Pain in right ankle and joints of right foot M25.571 ; Bursitis of right foot M77.51 and Arthritis M19.[address] [address] 04/04/2024 Yaz Black Tinea unguium B35.1 and Type 1 diabetes mellitus with diabetic polyneuropathy E10.[address] [address] 09/09/2024 Yaz Kimbrough Tinea unguium B35.1 ; Hallux valgus (acquired), right foot M20.11 ; Type 1 diabetes mellitus with diabetic polyneuropathy E10.42 ; Tinea pedis of both feet B35.3 ; Pain in right ankle and joints of right foot M25.571 ; Bursitis of right foot M77.51 and Arthritis M19.[address] [facility] [address] 03/11/2024 [facility] [address] [address] 03/25/2024 [facility] [address] [address] 07/10/2024 Yaz Kimbrough Assessments Encounter Date Diagnosis (ICD Code) Assessment Notes Treatment Notes Treatment Clinical Notes Section Notes 09/27/2023 Hallux valgus (acquired), right foot (ICD-10 - M20.11) 09/27/2023 Type 1 diabetes mellitus with diabetic polyneuropathy (ICD-10 - E10.42) 01/07/2024 Hallux valgus (acquired), right foot (ICD-10 - M20.11) 01/07/2024 Tinea pedis of both feet (ICD-10 - B35.3) 04/04/2024 Tinea unguium (ICD-10 - B35.1) 09/09/2024 Tinea unguium (ICD-10 - B35.1) 09/09/2024 Hallux valgus (acquired), right foot (ICD-10 - M20.11) 09/09/2024 Type 1 diabetes mellitus with diabetic polyneuropathy (ICD-10 - E10.42) 04/04/2024 Type 1 diabetes mellitus with diabetic polyneuropathy (ICD-10 - E10.42) 01/07/2024 Type 1 diabetes mellitus with diabetic polyneuropathy (ICD-10 - E10.42) 09/27/2023 Tinea unguium (ICD-10 - B35.1) 09/27/2023 Pain in right toe(s) (ICD-10 - M79.674) 01/07/2024 Tinea unguium (ICD-10 - B35.1) 09/09/2024 Tinea pedis of both feet (ICD-10 - B35.3) 09/09/2024 Pain in right ankle and joints of right foot (ICD-10 - M25.571) 01/07/2024 Pain in right toe(s) (ICD-10 - M79.674) 09/27/2023 Pain in left toe(s) (ICD-10 - M79.675) 09/27/2023 Pain in right foot (ICD-10 - M79.671) 01/07/2024 Pain in left toe(s) (ICD-10 - M79.675) 09/09/2024 Bursitis of right foot (ICD-10 - M77.51) 09/09/2024 Arthritis (ICD-10 - M19.90) 01/07/2024 Pain in right foot (ICD-10 - M79.671) 09/27/2023 Pain in right ankle and joints of right foot (ICD-10 - M25.571) 09/27/2023 Bursitis of right foot (ICD-10 - M77.51) 01/07/2024 Pain in right ankle and joints of right foot (ICD-10 - M25.571) 09/27/2023 Arthritis (ICD-10 - M19.90) 01/07/2024 Bursitis of right foot (ICD-10 - M77.51) 01/07/2024 Arthritis (ICD-10 - M19.90) Plan Of Treatment Pending Test Test Name Order Date 86095-WRAWACG NAIL, 6 OR MORE 02/03/2021 62759-MQWUBIQ NAIL, 6 OR MORE 05/23/2021 50483-BDBCETE NAIL, 6 OR MORE 09/22/2021 13068-ZVEQCUG NAIL, 6 OR MORE 04/27/2022 06237-GSHXUCR NAIL, 6 OR MORE 08/14/2022 78386-ZURBXSR NAIL, 6 OR MORE 01/30/2022 94948-UINOYBC NAIL, 6 OR MORE 11/23/2022 30187-MNMKKXT NAIL, 6 OR MORE 03/08/2023 69850-SMXEZDI NAIL, 6 OR MORE 06/21/2023 68930-CEDADKP NAIL, 6 OR MORE 09/27/2023 18944-ISJVOYA NAIL, 6 OR MORE 01/07/2024 48222-FFXGEAE NAIL, 6 OR MORE 04/04/2024 25520-JIIERMV NAIL, 6 OR MORE 09/09/2024 35989-RVTG SKIN LESIONS, OVER 4 09/09/19 25 74494-FMZT SKIN LESIONS, OVER 4 04/04/20 62563-OKRH SKIN LESIONS, OVER 4 06/21/20 97897-EUOZ SKIN LESIONS, OVER 4 01/07/20 24 71386-OSLL SKIN LESIONS, OVER 4 09/27/19 56052-AJEM SKIN LESIONS, OVER 4 03/08/20 44208-HSZM SKIN LESIONS, OVER 4 08/14/19 37282-OEFK SKIN LESIONS, OVER 4 11/24/19 02337-VLRR SKIN LESIONS, 2 TO 4 01/31/20 36109-XUOU SKIN LESIONS, 2 TO 4 04/27/20 94879, L1645-YEUAH/INJECT, JOINT/BURSA 1 08/21/2022 29731, Q7228-SWVXQ/INJECT, JOINT/BURSA 0 09/27/2023 Next Appt Details Provider Name:Yaz Kimbrough , 12/16/2024 03:30:00 PM, [address] [facility], [place], [address], Insurance Providers Payer Name Payer Address Payer Phone Subscriber Number Group Number Insured Name Patient Relationship to Insured Coverage Start Date Coverage End Date Medicare [employer] [address] [place] [address] [id number] Bernard Navarro Self - patient is the insured Medical (General) History Medical History History ICD Code type I diabetes - brittle diabetic Hypothyroidism Vitamin D deficiency Down's syndrome depressive disorder Impulse Control disorder Periodontal disease Cholesterol Reflux Hypertension Low kidney function Surgical History Surgery Date(Month/Year) bunionectomy- right foot Tooth extraction x4 06/26/23, 07/10/23 Hospitalization History Reason Date(Month/Year) [facility] [place] [place] Er- Yeast Infection - Diabetic Ketoa cidosis (DKA) 02/15/23 [facility] [place] [place]- elevated sugar 01/2022
--- OUTSIDE RECORDS SUMMARY | 2024-09-15 17:32 | XMS_ITS ---
Author Organization [facility] Address [address] [place] [address] Care Team Providers Care Assessment Manager Name Role Phone Boris Mcgowan Primary Care Provider Yaz Ramirez Unavailable [phone] Allergies Allergen (clinical drug ingredient) Drug/Non Drug Allergy documented on EMR Reaction Allergy Type Onset Date Status Substance with sulfonamide structure and antibacterial mechanism of action (substance) Sulfa Antibiotics Unknown Drug Allergy Active REASON FOR VISIT Painful nail(s) aggrevated by shoes and causing difficulty standing/walking., At Risk Footcare, Skin Problem Medications Medication SIG (Take, Route, Frequency, Duration) Notes Start Date End Date Status Vitamin D 25 MCG (1000 UT) 1 tablet Orally Once a day for 30 day(s) Not-Taking ZyPREXA 2.5 MG 1 tablet Orally Once a day for 30 day(s) Not-Taking OLANZapine 2.5 MG 1 tablet Orally PRN Not-Taking ZyrTEC Allergy 10 MG 1 tablet Orally Once a day for 30 day(s) Not-Taking Depakote 250 MG 1 tablet Orally Twice a day Not-Taking Colace Not-Taking DuoNeb Not-Taking CeleXA 10 MG 1 tablet Orally Once a day for 30 days Active Folvite-Fe Not-Takin g Basaglar KwikPen Not -Taking Ciclopirox Olamine 0.77 % 1 application Externally Twice a day for 30 days Not-Taking Senna Not-Taking Arformoterol Tartrate 15 MCG/2ML 2 mL Inhalation Twice a day Not-Taking Benefiber Not-Taking Flomax 0.4 MG 2 capsule Orally Once a day Not-Taking Citalopram Hydrobromide 20 MG 1 tablet Orally Once a day for 30 day(s) Not-Taking Ciclopirox Olamine 0.77 % 1 APPLICATION EXTERNALLY TWICE A DAY TO THE AFFECTED AREA FOR 30 DAYS for 30 Not-Taking Lisinopril 5 MG 1 tablet Orally Once a day for 30 day(s) Not-Taking Vitamin D3 Active Ativan 0.5 MG 1 tablet at bedtime as needed Orally Once a day Active Simvastatin 10 MG 2 tablets in the evening Orally Once a day Active Systane Active Vitamin C Active Tamsulosin HCl 0.4 MG 2 caps Orally Once a day Active Tylenol Active Nystatin Active Norvasc 2.5 MG 1 tablet Orally Once a day Active Omeprazole 20 MG 1 capsule 30 minutes before morning meal Orally Once a day for 30 day(s) Active Metoprolol Succinate 25 MG 1 capsule Orally Once a day Active Levothyroxine Sodium 100 MCG 1 tablet in the morning on an empty stomach Orally Once a day for 30 day(s) Active HumaLOG sliding scale Active Lokelma 5 GM 1 packet dissolved in water Orally Active MiraLax Active Ipratropium [place] Active Lantus 100 UNIT/ML as directed Subcutaneous 15 units Active Glucose 4 GM PRN Orally Active Ferrous Sulfate 325 (65 Fe) MG 1 tablet Orally every day Active Folic Acid 800 MCG 1 tablet Orally Once a day for 30 day(s) Active Dulcolax Active Docusate Sodium Acti ve Cetirizine HCl 10 MG 1 tablet Orally Once a day for 30 day(s) Active Creon 17683-40454 UNIT as directed Orally Active Aspirin 81 MG 1 tablet Orally Once a day for 30 day(s) Active Azithromycin 250 MG as directed Orally Active Desitin Active Voltaren 1 % as needed Externally every 6 hours as needed for 30 days 03/08/2023 Active Delsym 10ml at bed prn Active Pepcid AC 20mg once a day Active Ciclopirox Olamine 0.77 % 1 application Externally Twice a day to skin of feet including between the toes for 30 days Active Social History Tobacco Use: Social History Observation [...] Additional Findings: Tobacco non-user Current no nsmoker Vital Signs Height 4ft 9in in 09/09/2024 Weight 132 lbs 09/09/2024 BMI 28.56 kg/m2 09/09/2024 Blood pressure systolic 120 mm Hg 09/09/19 25 Blood pressure diastolic 71 mm Hg 025 Procedures Procedure Date Ordered Date Performed Result Body Sit e 54575-YXZJIEE NAIL, 6 OR MORE 09/09/2024 N/A 29478-BXWV SKIN LESIONS, OVER 4 09/09/2024 N/A Encounters Encounter Location Date Provider Diagnosis [facility] [address] 09/09/2024 Yaz Black Tinea unguium B35.1 ; Hallux valgus (acquired), right foot M20.11 ; Type 1 diabetes mellitus with diabetic polyneuropathy E10.42 ; Tinea pedis of both feet B35.3 ; Pain in right ankle and joints of right foot M25.571 ; Bursitis of right foot M77.51 and Arthritis M19.90 Assessments Encounter Date Diagnosis (ICD Code) Assessment Notes Treatment Notes Treatment Clinical Notes Section Notes 09/09/2024 Tinea unguium (ICD-10 - B35.1) 09/09/2024 Hallux valgus (acquired), right foot (ICD-10 - M20.11) 09/09/2024 Type 1 diabetes mellitus with diabetic polyneuropathy (ICD-10 - E10.42) 09/09/2024 Tinea pedis of both feet (ICD-10 - B35.3) 09/09/2024 Pain in right ankle and joints of right foot (ICD-10 - M25.571) 09/09/2024 Bursitis of right foot (ICD-10 - M77.51) 09/09/2024 Arthritis (ICD-10 - M19.90) Plan Of Treatment Medication Medication Name Sig Start Date Stop Date Notes Voltaren 1 % as needed Externally every 6 hours as needed for 30 days 03/08/2023 Ciclopirox Olamine 0.77 % 1 application Externally Twice a day to skin of feet including between the toes for 30 days Pending Test Test Name Order Date [id number] NAIL, 6 OR MORE 09/09/2024 [id number] SKIN LESIONS, OVER 4 09/09/19 Next Appt Details Follow Up: prn, Reason: Provider Name:Yaz Kimbrough , 12/16/2024 03:30:00 PM, [address] [facility], [place], [address], Procedure Notes * Category Sub-Category Detail Notes Debride Nail 6-10 Nail debridement Due to the cl inical pathology outlined in the exam findings, performance of this nail treatment is medically necessary as its management by an unskilled/untrained nonprofessional would put this patients foot and overall health at risk. Therefore, debridement to affected nail(s), as described in exam ( T1, T2, T3, T4,T6, T7, T8, T9, ___ ), was performed exclusively by the physician of record to reduce/remove overall nail length, girth, thickness, subungual debris, and necrotic tissue, by manual and/or electrical means through the use of a nail nipper and/or dremel-type grinder set up operator surface, to a more viable healthy nail plate or bed tissue 6-10 nails in total. Silver nitrate was used for any petechial bleeding as necessary. Definitive antifungal treatment options, both pharmaceutical and surgical, have been reviewed and discussed with the patient. The patient solely prefers the use of intermittent/as needed professional debridement services for their nail condition and understands the need for additional periodic treatments to maintain effectiveness in symptomatic relief - 36384 Keratoma Treatment Parring or Cutting o f Benign Hyperkeratotic Lesion(s) (-57) More than 4 Lesions - Due to the at risk nature of the patients medical condition as documented in the exam findings, performance of this keratoderma treatment is medically necessary as its management by an unskilled/untrained nonprofessional would put this patients foot and overall health at risk. Therefore, the benign hyperkeratotic lesions, ( 6 ) in total, locations as stated and described in the exam ( SUB MTH (s), 1, B/L 2 B/L Medial plantar IPJ TA T5 ), were pared, and/or cut utilizing a sterile 15 blade, tissue nippers, and/or power dremel instrumentation by the physician of record - [id number] Progress Notes * Bernard NAVARRODOEdith:1980 ([age] yo M)Acc No.[id number]:09/09/2024 Progress Note Patient:?Bernard NAVARRO Provider:?Yaz Kimbrough DPM :1980???Age:43 Y???Sex:Male Sanjay e:09/09/2024 Address:[address] [place], [place] [id number] Pcp:Boris Mcgowan Subjective: * Chief Complaints: * ???Painful nail(s) aggrevate d by shoes and causing difficulty standing/walking.At Risk FootcareSkin Problem * HPI: ???Painful Nails:?Pt States Last PCP Visit:?Date:?07/24/2024 ???Skin problems:?Nature:?scaling , redness.?Location:?B/L .?Duration:?, several months.?Course:?worse.?Foot Pain:?Location:?Inside, Great toe joint, RIGHT.?Duration:?, several months.?Course:?, recurrent.?Aggravated:?any pressure.?Treatments:?rest , medication ( voltaren gel ) , change in shoes , cortisone injection (2R).? * ROS:?General/Constitutional:?Nausea?denies.?Vomiting?denies.?Hunger Thirst?denies.?Loss appetite?denies.?Chills?denies.?Fatigue?denies.?Fever?denies.?Night Sweats?denies.?Unexplained weight loss?denies.?Unexplained weight gain?denies.?HEENTM:?Dentures?denies.?Dizziness?denies.?Glasses/contacts?denies.?Retinopathy?den ies.?Blurred/double vision?denies.?TMJ?denies.?Discharge/drainage?denies.?Implants?denies.?Sore throat?denies.?Dental implants?denies.?Hard of hearing ?denies.?Difficulty chewing/swallowing/speaking?denies.?Nose bleeds?denies.?Sore mouth?denies.?Respiratory:?On O xygen?denies.?Pneumonia/pleurisy?denies.?Bronchitis?denies.?Emphysema?denies.?Co ughing?admits.?Cough blood?denies.?Shortness of breath?denies.?Wheezing?denies.?Cardiovascular:?Pacemaker?denies.?MVP?denies.?WPW?denies.?CHF?denies.?Heart attack?denies.?Septal defect?denies.?Rapid beat?denies.?Chest pain ?denies.?Atrial Fib.?denies.?Murmur/Palpitations?denies.?Gastrointestinal:?Hemorrhoids?denies.?Stomach/Abdominal pain?denies.?Dark blood stool?denies.?Irritable bowel ?denies.?Constipation?denies.?Diarrhea?denies.?Hematology:?Swelling?denies.?Clots?denies.?Varicose Veins?denies.?Bruising?denies.?Bleeding problem?denies.?Genitourinary:?Blood urine?denies.?Frequent/Painfu/urination/bladder control?denies.?Kidney stones?denies.?Infection (UTI)?denies.?Nephropathy?denies.?sex trans dis (STD)?denies.?Prostate?denies.?Musculoskeletal:?Hammertoes?denies.?Bunions?admits.?Back Pain?denies.?Muscle Cramps/ Resting?denies.?Muscle cramps / walking?denies.?Generalized aches and pains?denies.?Weakness?denies.?Integ.:?Ellison?denies.?Scars?denies.?Corns/calluses?denies.?Ingrown nails?denies.?Painful nails?admits.?Open Sores?denies.?Rashes?denies.?Neurologic:?Difficulty sleeping?denies.?Brain disorder?denies.?Numbness?denies.?Balance t rouble?denies.?Confusion?denies.?Fainting/blackouts?denies.?Tingling?denies.?Markie mors?denies.? * Medical History:? * Surgical History:?bunionecto my- right foot Tooth extraction x4 06/26/23, 07/10/23 * Hospitalization/Major Diagno stic Procedure:?[facility]- elevated sugar 01/2022[facility]- Yeast Infection - Diabetic Ketoacidosis (DKA) 02/15/23 * Family History:?Mother: kaleigh masterson?Father: alive.? * Social History:?Tobacco Use:?Tobacco use other than smoking?Are you an other tobacco user??No ?Tobacco Control (Standard)?Tobacco use:?Nonsmoker ?Additional Findings: Tobacco non-user?Current nonsmoker ???Drugs/Alcohol:?Drugs?Have you used drugs other than those for medical reasons in the past 12 months??No ?Alcohol Screen?Did you have a drink containing alcohol in the past year??No ?Points?0 ?Interpretation?Negative ???Miscellaneous:?Caffeine: yes, frequency:, 1-2 cups per day Decafe coffee. ?Children: no, none. ?Exercise: yes, walking, bowling , ,cornhole. ?Marital status: single. ?Occupation: Unemployed. * Medications:?TakingDelsym , Notes to Pharmacist: 10ml at bed prnPepcid AC , Notes to Pharmacist: 20mg once a dayAspirin 81 MG Tablet Delayed Release 1 tablet Orally Once a day Azithromycin 250 MG Tablet as directed Orally Cetirizine HCl 10 MG Tablet 1 tablet Orally Once a day Creon 49577-33577 UNIT Capsule Delayed Release Particles as directed Orally Desitin Docusate Sodium Dulcolax Ferrous Sulfate 325 (65 Fe) MG Tablet 1 tablet Orally every day Folic Acid 800 MCG Tablet 1 tablet Orally Once a day Glucose 4 GM Tablet Chewable PRN Orally HumaLOG , Notes to Pharmacist: sliding scaleIpratropium [place] Lantus 100 UNIT/ML Solution as directed Subcutaneous , Notes to Pharmacist: 15 unitsLokelma 5 GM Packet 1 packet dissolved in water Orally MiraLax Metoprolol Succinate 25 MG Capsule ER 24 Hour Sprinkle 1 capsule Orally Once a day Levothyroxine Sodium 100 MCG Tablet 1 tablet in the morning on an empty stomach Orally Once a day Nystatin Norvasc 2.5 MG Tablet 1 tablet Orally Once a day Omeprazole 20 MG Capsule Delayed Release 1 capsule 30 minutes before morning meal Orally Once a day Simvastatin 10 MG Tablet 2 tablets in the evening Orally Once a day Systane Tamsulosin HCl 0.4 MG Capsule 2 caps Orally Once a day Tylenol Vitamin C Vitamin D3 Ativan 0.5 MG Tablet 1 tablet at bedtime as needed Orally Once a day CeleXA 10 MG Tablet 1 tablet Orally Once a day Taking Delsym , Notes to Pharmacist: 10ml at bed prnTaking Dani PABON , Notes to Pharmacist: 20mg once a dayTaking Aspirin 81 MG Tablet Delayed Release 1 tablet Orally Once a day Taking Azithromycin 250 MG Tablet as directed Orally Taking Cetirizine HCl 10 MG Tablet 1 tablet Orally Once a day Taking Creon 23641-41139 UNIT Capsule Delayed Release Particles as directed Orally Taking Desitin Taking Docusate Sodium Taking Dulcolax Taking Ferrous Sulfate 325 (65 Fe) MG Tablet 1 tablet Orally every day Taking Folic Acid 800 MCG Tablet 1 tablet Orally Once a day Taking Glucose 4 GM Tablet Chewable PRN Orally Taking HumaLOG , Notes to Pharmacist: sliding scaleTaking Ipratropium [place] Taking Lantus 100 UNIT/ML Solution as directed Subcutaneous , Notes to Pharmacist: 15 unitsTaking Lokelma 5 GM Packet 1 packet dissolved in water Orally Taking MiraLax Taking Metoprolol Succinate 25 MG Capsule ER 24 Hour Sprinkle 1 capsule Orally Once a day Taking Levothyroxine Sodium 100 MCG Tablet 1 tablet in the morning on an empty stomach Orally Once a day Taking Nystatin Taking Norvasc 2.5 MG Tablet 1 tablet Orally Once a day Taking Omeprazole 20 MG Capsule Delayed Release 1 capsule 30 minutes before morning meal Orally Once a day Taking Simvastatin 10 MG Tablet 2 tablets in the evening Orally Once a day Taking Systane Taking Tamsulosin HCl 0.4 MG Capsule 2 caps Orally Once a day Taking Tylenol Taking Vitamin C Taking Vitamin D3 Taking Ativan 0.5 MG Tablet 1 tablet at bedtime as needed Orally Once a day Taking CeleXA 10 MG Tablet 1 tablet Orally Once a day Not-Taking/PRNCitalopram Hydrobromide 20 MG Tablet 1 tablet Orally Once a day Ciclopirox Olamine 0.77 % Cream 1 APPLICATION EXTERNALLY TWICE A DAY TO THE AFFECTED AREA FOR 30 DAYS Lisinopril 5 MG Tablet 1 tablet Orally Once a day Senna Voltaren 1 % Gel as needed Externally every 6 hours as needed Ciclopirox Olamine 0.77 % Cream 1 application Externally Twice a day Benefiber Flomax 0.4 MG Capsule 2 capsule Orally Once a day Arformoterol Tartrate 15 MCG/2ML Nebulization Solution 2 mL Inhalation Twice a day Vane Hduson Folvite-Fe OLANZapine 2.5 MG Tablet 1 tablet Orally PRN Vitamin D 25 MCG (1000 UT) Tablet 1 tablet Orally Once a day ZyPREXA 2.5 MG Tablet 1 tablet Orally Once a day ZyrTEC Allergy 10 MG Tablet 1 tablet Orally Once a day Depakote 250 MG Tablet Delayed Release 1 tablet Orally Twice a day Medication List reviewed and reconciled with the patientNot-Taking/PRN Citalopram Hydrobromide 20 MG Tablet 1 tablet Orally Once a day Not-Taking/PRN Ciclopirox Olamine 0.77 % Cream 1 APPLICATION EXTERNALLY TWICE A DAY TO THE AFFECTED AREA FOR 30 DAYS Not-Taking/PRN Lisinopril 5 MG Tablet 1 tablet Orally Once a day Not-Taking/PRN Senna Not-Taking/PRN Voltaren 1 % Gel as needed Externally every 6 hours as needed Not-Taking/PRN Ciclopirox Olamine 0.77 % Cream 1 application Externally Twice a day Not-Taking/PRN Benefiber Not-Taking/PRN Flomax 0.4 MG Capsule 2 capsule Orally Once a day Not-Taking/PRN Arformoterol Tartrate 15 MCG/2ML Nebulization Solution 2 mL Inhalation Twice a day Not-Taking/PRN Basaglar NegritoPen Not-Taking/PRN Colace Not-Taking/PRN DuoNeb Not-Taking/PRN Folvite-Fe Not-Taking/PRN OLANZapine 2.5 MG Tablet 1 tablet Orally PRN Not-Taking/PRN Vitamin D 25 MCG (1000 UT) Tablet 1 tablet Orally Once a day Not-Taking/PRN ZyPREXA 2.5 MG Tablet 1 tablet Orally Once a day Not-Taking/PRN ZyrTEC Allergy 10 MG Tablet 1 tablet Orally Once a day Not-Taking/PRN Depakote 250 MG Tablet Delayed Release 1 tablet Orally Twice a day Medication List reviewed and reconciled with the patient * Allergies:?Sulfa Antibiotics yes[Allergies Verified] Objective: * Vitals:?Ht: 4ft 9in, Wt:132, BMI:28.56, Shoe size: 2, BP:120/71mm Hg, BS: 124, Ht-cm: 144.78 cm, Wt-k.87 kg. * ???Past Orders: ???Lab:HEMOGLOBIN A1C (GLYCO HEMOGLOBIN) (Order Date - 07/24/2024) (Collection Date & Time - 07/24/2024 03:24 PM) ? Value Reference Range ?HEMOGLOBIN A1C % (HH) 9.8 * Examination: ???Ophthalmology Referral: ?DIABETES EYE EXAM?General Examination: ?GENERAL APPEARANCE:?Reveals a pleasant, alert, well nourished, well- developed, well hydrated individual, who demonstrates proper attention to hygiene/body habitus, and is in no acute distress, Pt serves as own historian for office visit today.?ORIENTED:?person, place, and time.?Vascular: ?DP PULSES (B):? 1/4, B/L.?PT PULSES (B):? 2/4, B/L.?CAPILLARY FILL TIME:?immediate, all digits, B/L.?VARICOSITIES:?absent.?Nails: ?NAILS are:?Elongated, overgrown, dystrophic, lytic, greater than 3mm thick, discolored and friable with crumbly malodorous subungual debris, with pain on palpation,,?T1, T2, T3, T4, T6, T7, T8, T9.?Dermatologic: ?SKIN FINDINGS:?Skin exam reveals keratotic lesion(s) located at, , SUB MTH (s), 1, B/L 2 B/L Medial plantar IPJ TA T5? , Skin shows sign(s) of, erythema, scaling, in a moccasin fashion, no fissure(s) present, B/L.?Neurological: ?SENSORY:?Neurological exam demonstrates reduced light touch sensation reduced vibration sensation 5.07 monofilament test performed at plantar aspects of 5 varied sites per foot shows sensation reduced B/L.?Orthopedic: ?BUNION:?Medially prominent 1st MPJ, (+) Pain on palpation, inflammation present, , RIGHT.?DIGITAL DEFORMITIES:?Digital contracture, PIPJ, 2-5 B/L, incompl-reducible with WB, or to push-up test, no over, nor underlapping.? Assessment: * Assessment: 1.?Tinea unguium - B35.1???2 .?Hallux valgus (acquired), right foot - M20.11 (Primary)???Specify :Chronic problem, Worse (4)???3.?Type 1 diabetes mellitus with diabetic polyneuropathy - E10.42???4.?Tinea pedis of both feet - B35.3???Specify :Acute problem, Uncomplicated (3),Rx drug management (4)???5.?Pain in right ankle and joints of right foot - M25.571???6.?Bursitis of right foot - M77.51???7.?Arthritis - M19.90??? Plan: * Treatment: 2.?Type 1 diabetes mellitus with diabetic polyneuropathy?Procedure: [id number] SKIN LESIONS, OVER 4 3.?Tinea pedis of both feet? Start Ciclopirox Olamine Cream, 0.77 %, 1 application, Externally, Twice a day to skin of feet including between the toes, 30 days, 120, Refills 3.?? * Procedures:?Debride Nail 6-10:?Nail debridement?Due to the clinical pathology outlined in the exam findings, performance of this nail treatment is medically necessary as its management by an unskilled/untrained nonprofessional would put this patients foot and overall health at risk. Therefore, debridement to affected nail(s), as described in exam ( T1, T2, T3, T4,T6, T7, T8, T9, ___ ), was performed exclusively by the physician of record to reduce/remove overall nail length, girth, thickness, subungual debris, and necrotic tissue, by manual and/or electrical means through the use of a nail nipper and/or dremel-type grinder set up operator surface, to a more viable healthy nail plate or bed tissue 6-10 nails in total. Silver nitrate was used for any petechial bleeding as necessary. Definitive antifungal treatment options, both pharmaceutical and surgical, have been reviewed and discussed with the patient. The patient solely prefers the use of intermittent/as needed professional debridement services for their nail condition and understands the need for additional periodic treatments to maintain effectiveness in symptomatic relief - 70693.?Keratoma Treatment:?Parring or Cutting of Benign Hyperkeratotic Lesion(s)?(-57) More than 4 Lesions - Due to the at risk nature of the patients medical condition as documented in the exam findings, performance of this keratoderma treatment is medically necessary as its management by an unskilled/untrained nonprofessional would put this patients foot and overall health at risk. Therefore, the benign hyperkeratotic lesions, ( 6 ) in total, locations as stated and described in the exam ( SUB MTH (s), 1, B/L 2 B/L Medial plantar IPJ TA T5 ), were pared, and/or cut utilizing a sterile 15 blade, tissue nippers, and/or power dremel instrumentation by the physician of record - [id number].? * Procedure Codes:?50297 DEBRI DE NAIL, 6 OR MORE, Modifiers: XS 28938 TRIM SKIN LESIONS, OVER 4, Modifiers: XS M1211 Hemoglobin a1c level >9.0% * Preventive Medicine:? ??Counseling:?Discussion:?-14: Office or other outpatient visit for the evaluation and management of an established patient, which required a medically appropriate history and/or examination and MODERATE level of DECISION MAKING for: 1 OR MORE CHRONIC PROBLEM(S) THATS WORSENING, 2 STABLE CHRONIC PROBLEMS, A NEWLY DIAGNOSED PROBLEM WITH UNCERTAIN PROGNOSIS, AN ACUTE COMPLICATED INJURY WITH MULTIPLE TREATMENT OPTIONS, OR AN ACUTE PROBLEM WITH ACCOMPANYING SYSTEMIC SYMPTOMS, THAT POSE(S) A MODERATE RISK OF MORBIDITY. THIS CONDITION MAY ALSO INCLUDE RX DRUG MANAGEMENT, OR A DECISON FOR MINOR SURGERY. The visit on the day of the encounter encompassed interpreting the data and educating the patient as to the nature of their condition, treatment options available according to their individual PMH, meds, allergies, and overall health/living conditions, as well as any potential risks or complications that may occur from a failure to adhere to, and participate in, the recommended course of therapy. The discussion included a complete verbal, and/or written explanation of the examination results, any x-rays taken, the proposed diagnosis, and outline of the treatment plan. A schedule for future care needs was also explained. The patient verbalized an understanding of the instructions at this time and agreed to be an active participant in their treatment. If the patient should think of any questions or concerns after the visit, I have encouraged the patient to call the office.?Digital Treatment:?HV - I explained to the patient the risks/benefits of all the different treatment options for their pain including: No treatment at all, Rest, Ice, New/supportive/wider/deeper Shoe gear, Digital Padding/Strapping/Taping/Bracing/Gel protective sleeves, Foot/Ankle AFO Bracing, Stretching exercises, Deep Tissue Massage, Arch support/shoe inserts with splay metatarsal padding, and Custom orthoses. I insisted that any digital devices be removed daily and not worn overnight for safety. The patient is to carefully examine the toes daily for any skin irritation while using any splinting or padding device. The advantages and disadvantages of each option were discussed and the patients questions re: shoe gear, padding, custom vs prefabricated inserts, activity level, and consistency in home treatment regimens for optimal success were answered to their verbally confirmed satisfaction.Recommended Topical analgesics Voltaren gel.?Tinea Pedis:?The patient was counseled on the diagnosis, potential etiologies, and treatment options for their skin condition. We discussed the risks and benefits of each option from performing no treatment, to utilizing OTC topical skin creams, prescription topical creams, customized compounded topical medications, and, if necessary, to utilize oral antifungal therapy. We discussed the advantages and disadvantages of each possible treatment and importance for adherence to all the recommended therapies for optimum success and avoid potential complications such as open sore/infection/possible hospitalization. We discussed the potential effectiveness of each topical preparation as well as each ones possible side effects and/or patient medication interactions if oral therapy is selected. Patient questions re: the advantages and disadvantages of each treatment choice, medication use/dosage, successful outcomes, and application consistency were reviewed and the patient verbalized that all answers were clearly understood. The patient was told they can help alleviate symptoms by utilizing moisture absorbant innersoles with activated charcoal and baking soda, applying antifungal sprays daily, aerating toe web spaces at night by putting cotton or lambs wool between the toes, alternating shoe gear daily if possible so they can dry out, changing socks at least once during the day, wearing well-ventilated shoes or sandals. The patient has decided to apply antifungal skin creams to their feet as directed. Rx was sent to their pharmacy at the time of visit.? ??Screening/Special Tests:?Fall Risk?Screening:?No falls in the past year ?FALLS: Screening for Future Fall Risk?Have you had any falls with injury in the past year??No * Follow Up:?prn * Images: * Sign off status: Completed true * Provider:?Yaz Kimbrough DPM Date:?2024 Generated for Glendy wright/Lita/Georges on:?09/15/2024 05:32 PM EST History and Physical Notes * HPI (History of Present Illness) Category Sub-Category Detail Notes Category Not es Painful Nails Pt States Last PCP Visit: Date:: 07/24/2024 Skin problems Nature: scaling , redness Location: B/L Duration: , several months Course: worse Foot Pain Location: Inside, Great toe joint, RIG HT Duration: , several months Course: , recurrent Aggravated: any pressure Treatments: rest , medication ( voltaren gel ) , change in shoes , cortisone injection (2R) Examination Category Sub-Category Detail Notes Category Not [...] 2 B/L Medial plantar IPJ TA T5 , Skin shows sign(s) of, erythema, scaling, in a moccasin fashion, no fissure(s) present, B/L Orthopedic BUNION: Medially promine nt 1st MPJ, (+) Pain on palpation, inflammation present, , RIGHT DIGITAL DEFORMITIES: Digital contracture , PIPJ, 2-5 B/L, incompl-reducible with WB, or to push-up test, no over, nor underlapping General Examination GENERAL APPEARANCE: Reveals a pleasant, alert, well nourished, well-developed, well hydrated individual, who demonstrates proper attention to hygiene/body habitus, and is in no acute distress, Pt serves as own historian for office visit today ORIENTED: person, place, and t raúl Ophthalmology Referral DIABETES EYE EXAM Procedure Perform ed:: Yes ?Date of Exam Performed: 04/23/2024 Vascular DP PULSES (B): 1/4, B/L PT PULSES (B): 2/4, B/L CAPILLARY FILL TIME: immediate, all digi ts, B/L VARICOSITIES: absent Nails NAILS are: Elongated, overg rown, dystrophic, lytic, greater than 3mm thick, discolored and friable with crumbly malodorous subungual debris, with pain on palpation,, T1, T2, T3, T4, T6, T7, T8, T9
--- OUTSIDE RECORDS SUMMARY | 2024-09-15 17:32 | XMS_ITS ---
Author Organization [facility] Address [address] [place] [address] Care Team Providers Care Felt Hat Mellowing Machine Operator Name Role Phone Boris Mcgowan Primary Care Provider Yaz Ramirez [phone] Encounters Encounter Location Date Provider Diagnosis [address] [address] 07/10/2024 Yaz Kimbrough Plan Of Treatment Next Appt Details Provider Name:Yaz Parvez Kimbrough , 12/16/2024 03:30:00 PM, [address] [facility], [place], [address], Progress Notes * RAMON BernardDOB:1980 ([age] yo M)Acc No.[id number]:07/10/2024 Progress Note Patient:?Bernard NAVARRO Provider:?Yaz Kimbrough DPM :1980???Age:43 Y???Sex:Male Sanjay e:07/10/2024 Address:[address] [place], [place] [id number] Pcp:Boris Mcgowan Subjective: * Chief Complaints: * ??? * Medical History:? Objective: * Vitals:? Assessment: Plan: * Treatment: * Images: * The named appointment provid er may or may not be the originator of this progress note, and it is not deemed complete until electronically signed by the appointment provider. Sign off status: Pending * Provider:Frederic Kimbrough DPM Date:?2023 Generated for Glendy wright/Lita/Zeyaditting on:?09/15/2024 05:32 PM EST
--- OUTSIDE RECORDS SUMMARY | 2024-09-15 17:32 | XMS_ITS | Clinical Summary ---
Author Organization [facility] Facility Address [address] [address] Care Team Providers Care Carbon Sequestration Plant Engineer Name Role Phone Boris Mcgowan MD Primary Care Provider [phone] Allergies No known active allergies Medications aspirin [...] [place] Care Teams Carbon Sequestration Plant Engineer Relationship Specialty Start Date End Date Boris Mcgowan MD [address] JACHIN MD PCP - General 08/02/20
== END 2024-09-15 15:50 | disposition home or self-care (01) ==
PROVIDERS: PCP Internal Medicine; Visit Provider Internal Medicine Hypertension Specialist
DX: E87.5 Hyperkalemia (principal); N18.9 Chronic kidney disease, unspecified
CPT/HCPCS: 99214

== ENCOUNTER → 2024-09-15 15:14 | Outpatient (BNVA) | payer MEDICARE, MEDICAID, SELFPAY | PROVIDERS: PCP Internal Medicine; Visit Provider Internal Medicine Hypertension Specialist | DX: N18.9 Chronic kidney disease, unspecified (principal); E87.5 Hyperkalemia | CPT/HCPCS: 99212 ==

== ENCOUNTER 2024-10-23 10:27 | Outpatient (AMB) | payer MEDICARE, MEDICAID, SELFPAY ==
--- NOTE | 2024-10-23 10:31 | A.OFFVIS_ITS ---
Intake Visit Reasons: 6m/PVR Intake Note: Patient presents today for follow up on: urethral stenosis, neurogenic bladder, BPH Urology Medications: Tamsulosin Antibiotic Allergy: Sulfa Antibiotics Blood Thinner: Aspirin Pharmacy: [facility] PVR: 15ml's Bead Cutter Required: No Accompanied by: Unknown Allergies Sulfa (Sulfonamide Antibiotics) [SULFA(SULFONAMIDE ANTIBIOTICS)] Allergy (Intermediate, Verified 10/23/24 11:19) ITCHING Medication List - Last Reconciled 10/23/24 by SWAPNIL Barrera acetaminophen (Tylenol) 650 mg (2 x 325 mg) PO Q6H PRN amlodipine 5 mg PO DAILY arformoterol 2 mL inhalation BID ascorbic acid (vitamin C) (Vitamin C) 500 mg PO DAILY aspirin 81 mg PO DAILY azithromycin 250 mg PO .Sunday 30 days bisacodyl (Dulcolax (bisacodyl)) 10 mg (2 x 5 mg) PO BEDTIME bisacodyl (Dulcolax (bisacodyl)) 10 mg DE DAILY PRN blood sugar diagnostic (FreeStyle Lite Strips) As directed cetirizine 10 mg PO DAILY PRN 90 days cholecalciferol (vitamin D3) 1,250 mcg PO QWEEK 12 weeks ciclopirox 0.77% 1 appl topical BID citalopram 20 mg PO DAILY dextromethorphan polistirex ER (Delsym 12 hour) 10 mL PO .QHS PRN diclofenac sodium 1% 4 grams topical QID docusate sodium 200 mg (2 x 100 mg) PO BEDTIME doxycycline hyclate 100 mg PO BID 28 days famotidine (Pepcid) 20 mg PO BEDTIME ferrous sulfate 325 mg orally once a day at 4 pm; folic acid 0.8 mg PO DAILY glucagon HCl (Glucagon (HCl) Emergency Kit) 1 mg subcut ONCE PRN insulin glargine (Lantus Solostar U-100 Insulin) 15 units subcut BEDTIME insulin lispro (Humalog KwikPen (U-100) Insulin) 1 sliding scale dose See Protocol subcut TIDAC ipratropium-albuterol 0.5 mg-3 mg(2.5 mg base)/3 mL 3 mL inhalation BID 30 days levothyroxine 112 mcg PO DAILY kztmcs-xdbcplpv-fiuxlur 24,000-76,000 -120,000 unit (Creon) 1 cap PO QID lorazepam (Ativan) 0.5 mg PO BEDTIME PRN metoprolol succinate ER 25 mg See Protocol PO DAILY nystatin 1 appl topical BID PRN omeprazole 20 mg PO DAILY pen needle, diabetic (Comfort EZ Pen [place]) As directed pen needle, diabetic, safety (True Comfort Safety Pen Needle) As directed polyethylene glycol 3350 (Miralax) 17 grams PO DAILY simvastatin 20 mg PO BEDTIME sodium zirconium cyclosilicate (Lokelma) 5 grams orally 3 times a week( every SUN,SUN,Fridays); Mix with water. tamsulosin 0.8 mg (2 x 0.4 mg) PO DAILY@1700 90 days zinc oxide-cod liver oil 40 % (Desitin) 1 appl topical DAILY HPI Comments Details: Bernard is a very pleasant 43 year old male patient of Dr Mcgowan who was accompanied by group contract analyst. He has a past medical history of cellulitis, constipation, ascites, pericardial effusion, urethral meatal stenosis, mental and behavioral problem, renal insufficiency, hypercholesteremia, Down syndrome, GERD, hypothyroidism, anxiety, depression, pseudoseizures, and type 1 diabetes. He presents to the office today for follow-up of his lower urinary tract symptoms and incomplete bladder emptying. In discussion with the patient and viticulture teacher today he reports noting new onset of lower urinary bladder pressure as well as episodes of dysuria. He reports compliance with Flomax as prescribed. In office urinalysis results reviewed with the patient and viticulture teacher today negative leukocytes negative nitrates 3+ proteinuria. He does continue to follow-up with nephrology regarding proteinuria. He also describes having had an episode of incontinence while at his day program. This was a solitary event. He otherwise denies nocturia, hematuria, foul smelling urine, changes to urinary stream, flank pain, fever, and or chills. RUDI performed boggy prostate noted. We discussed decrease in PVR as previous PVR 99 mL today PVR 15 mL. In assessment of the patient today the penis is circumcised with no lesions, open areas, and or redness noted to the penis/scrotum/and or testicles. He otherwise offers no other issues or concerns at this time. Clinically, the prostate exam reveals a boggy prostate, prompting the suspicion of prostatitis. Urinalysis performed shows no blood, while proteinuria is observed, with concurrent nephrology consultation addressing these renal findings. Continued flomax use is part of the current therapeutic regimen. Plan I diagnosed the patient with prostatitis, prescribed doxycycline due to his sulfa allergy, and recommended continuation of Flomax. We will perform a follow- up ultrasound of the kidneys and bladder due to historical normal findings. The patient will continue nephrology monitoring for renal function and proteinuria. I obtained consent, discussed medications' potential side effects, and instructed on the anticipated timeline for symptom improvement. Follow-ups will address any emerging urinary issues or persistent symptoms. Patient was informed and verbally consented to the use of an ambient scribe for clinic note documentation during this visit. Discussion Notes During the discussion, I explained to the patient and residential member that his symptoms and examination findings pointed towards prostatitis. I detailed the treatment plan involving doxycycline therapy due to his allergy profile. I highlighted the importance of continuing Flomax for his urinary difficulties and discussed the likelihood of observing gradual symptom resolution. I ensured the patient understood the need for imaging studies and regular nephrology follow-up to oversee kidney function. We talked about the risks of antibiotic resistance but reassured that this course was appropriate given his current allergy to Bactrim. The patient consented to the treatment plan made to address his dysuria and bladder issues, stressing the importance of notifying the office if the symptoms escalate or do not improve as expected. [facility] Medical History Cellulitis Constipation Ascites Pericardial effusion Urethral meatal stenosis Mental and behavioral problem Renal insufficiency Hypercholesterolemia Down syndrome GERD (gastroesophageal reflux disease) BPH (benign prostatic hyperplasia) Hypothyroid Anxiety and depression Pseudoseizures Diabetes mellitus type 1 Surgical History Hx of cataract surgery Family History Father Medical history unknown Mother Medical history unknown Maternal Grandfather Prostate cancer Social History Household Members: None Household Members Other:: other residents and staff Housing: Other Housing Other:: residential Alcohol intake: never Comment: 1:1 Sitter Patient Tobacco Use Status: Never used Tobacco e-Cigarette/Vaping Use: Never Used Second Hand Smoke Exposure: No service: No Current occupational status: disabled Cognitive needs: No Hearing needs: No Vision needs: No Review of Systems Const Unobtainable due to mental condition Physical Exam Const General: cooperative, healthy appearing, comfortable, no acute distress, well developed, alert and awake Orientation/consciousness: oriented to person Limitations: no limitations HEENT Head: Yes normal to inspection Ears: hearing grossly normal bilaterally Neck Neck: Yes normal visual inspection and Yes trachea midline Chest Chest palpation & inspection: normal inspection of the chest Resp Effort & Inspection: normal respiratory effort and able to speak in complete sentences Cardio Rate: regular rate GI Inspection: Yes normal to inspection General: Yes no CVA tenderness Male General Exam: Yes normal external exam Penis: normal penis and circumcised Meatus: meatus normal Scrotum: scrotum normal Testes: Testes normal Back/Spine/Pelvis Back: no CVA tenderness Skin General skin exam: no rashes or lesions noted Neuro General: oriented to person Extrem General: Yes normal to inspection Psych Appearance: well kempt Speech and movement: Normal speech and movement present and Clear speech present Affect: normal affect Attitude: cooperative Insight: Limited insight present (Psych) Judgement: Limited judgement present (Psych) Office Procedures Post Void Residual Post Residual Void Post Void Residual (PVR): 15 48349-Kfcz Void Residual by ultrasound Results AMB Urinalysis, Automated UA Leukoctes 0 Allyssa/uL Last Edit by Selina Chowdary on 10/23/24 11:25 UA Nitrite Last Edit by Selina Chowdary on 10/23/24 11:25 UA Urobilinogen 0.2 mg/dL Last Edit by Selina Chowdary on 10/23/24 11:25 UA Protein 300 mg/dL Last Edit by Selina Chowdary on 10/23/24 11:25 UA pH 6.0 Last Edit by Selina Chowdary on 10/23/24 11:25 UA Blood 10 Philippe/uL Last Edit by Selina Chowdary on 10/23/24 11:25 UA Specific Roxton 1.020 Last Edit by Selina Chowdary on 10/23/24 11:25 UA Ketone Last Edit by Selina Chowdary on 10/23/24 11:25 UA Bilirubin 0 mg/dL Last Edit by Selina Chowdary on 10/23/24 11:25 UA Glucose 0 mg/dL Last Edit by Selina Chowdary on 10/23/24 11:25 Results Reviewed Results Reviewed: Laboratory Last Values Urine pH (Auto) 6.0 10/23/24 11:24 Specific [place] (Auto) 1.020 10/23/24 11:24 Urine Protein (Auto) 300 mg/dL 10/23/24 11:24 Glucose (UA)(Auto) 0 mg/dL 10/23/24 11:24 Urine Blood (Auto) 10 Philippe/uL 10/23/24 11:24 Urine Bilirubin (Auto) 0 mg/dL 10/23/24 11:24 Urine Urobilinogen (Auto) 0.2 mg/dL 10/23/24 11:24 Leukocyte Esterase (Auto) 0 Allyssa/uL 10/23/24 11:24 Assessment & Plan Assessment & Plan (1) Dysuria: Code(s): R30.0 - Dysuria Category: Medical (2) Prostatitis: Code(s): N41.9 - Inflammatory disease of prostate, unspecified Category: Medical Plan In office urinalysis results reviewed with the patient today in his viticulture teacher today; as noted above. PVR 15 mL. Will obtain retroperitoneal ultrasound for further assessment evaluation. RUDI performed; boggy prostate noted. Start doxycycline as discussed and prescribed. Continue Flomax. We discussed potential causes and treatment options of prostatitis. We discussed worsening symptoms. Follow-up in 3 months with PVR and imaging to be completed prior; or sooner with any issues, concerns, and or questions. Orders: Orders US retroperitoneal comp Today N41.9 - Inflammatory disease of prostate, unspecified, R30.0 - Dysuria AMB Urinalysis Automated Today Z13.9 - Encounter for screening, unspecified AMB Post Void Residual by ultrasound Today N31.9 - Neuromuscular dysfunction of bladder, unspecified Medications: New doxycycline hyclate 100 mg PO BID 56 tabs 0RF 28 days N41.9 - Inflammatory disease of prostate, unspecified doxycycline hyclate 100 mg PO BID 14 days 28 tabs 0RF N39.0 - Urinary tract infection, site not specified, N45.1 - Epididymitis Patient Instructions: The patient had an opportunity to ask questions regarding the treatment plan. All questions were answered. Physical exam, labs, and imaging were discussed and reviewed in detail. As well as risks, benefits, and discussion of treatment choices. No major barriers to understanding were identified. The patient expressed understanding and agreement with the above treatment plan. The patient was made aware they should contact our office by phone for worsening of their current condition, the appearance of new symptoms, or with any questions or concerns. Compliance is encouraged with any medications and follow up testing that is ordered. It is a privilege to be allowed the opportunity to participate in? your urological care.? Again, if you have any questions or concerns If you have any questions or concerns please do not hesitate to contact me. The office is [phone]. This note is constructed using voice recognition software. While every effort has been made to ensure accuracy reference assistant errors may have been included. Yours sincerely, LISETTE Barrera Coding Level of Care Code Est Pt Level 4 (83079) Complex EM visit Add On G2211 Diagnoses Dysuria R30.0 Prostatitis N41.9 CPT Codes Post Residual Void - PVR CPT Code: 36973-Smtv Void Residual by ultrasound ([id number])
--- OUTSIDE RECORDS SUMMARY | 2024-10-23 11:32 | XMS_ITS ---
Author Organization [facility] Address [address] [place] [address] Care Team Providers Care Line Erector Name Role Phone Boris Mcgowan Primary Care Provider Yaz Ramirez [phone] REASON FOR VISIT No Show Encounters Encounter Location Date Provider Diagnosis [address] [address] 07/10/2024 Yaz Kimbrough Plan Of Treatment Next Appt Details Provider Name:Yaz Parvez Kimbrough , 12/16/2024 03:30:00 PM, [address] [facility], [place], [address], Progress Notes * Bernard NAVARRODOB:1980 ([age] yo M)Acc No.[id number]:07/10/2024 Patient:?ANGELLA Bernard :1980???Age:43 Y???Sex:Male Address:[address] [place] [address], [address] * true * Date:? Generated for Printi ng/Fayonasg/eTransmitting on:?10/23/2024 11:32 AM EDT
--- OUTSIDE RECORDS SUMMARY | 2024-10-23 11:32 | XMS_ITS | Patient Health Record ---
[facility] Address [address] [facility] [address] Care Team Providers Care Cabin Outfitter Name Role Phone Boris Mcgowan Primary Care Provider Yaz Ramirez Unavailable [phone] Allergies Allergen (clinical drug ingredient) Drug/Non Drug [...] Lab: Notes/Report: HEMOGLOBIN A1C % (HH) 9.8 Reason For Referral No Information Medications Medication [...] a day for 30 day(s) Active Creon [address]9727[address] UNIT as directed Orally Active Aspirin 81 [...] in water Orally Active MiraLax Active Ipratropium [place] Active Lantus 100 UNIT/ML as directed Subcutaneous [...] Status Risk Notes Problem Acquired hallux valgus (71932155) Hallux valgus (acquired), left foot (M20.12) Active confirmed Problem Acquired hallux valgus (39003654) Hallux valgus (acquired), right foot (M20.11) Active confirmed Problem Acquired hallux valgus (95077094) Hallux valgus (acquired), right foot (M20.11) Active confirmed Problem Acquired hammer toe of right foot (6363612847920706 ) Other hammer toe(s) (acquired), right foot (M20.41) Active confirmed Problem Acquired hammer toe of left foot (3251952086662195 ) Other hammer toe(s) (acquired), left foot (M20.42) Active confirmed Problem Polyneuropathy due to diabetes mellitus type I (165766662) Type 1 diabetes mellitus with diabetic polyneuropathy (E10.42) Active confirmed Problem Arthritis (5819479) Arthritis (M19.90) Active confirmed Vital Signs Blood pressure diastolic 71 mm Hg 09/09/2024 Height 4ft 9in in 09/09/2024 Blood pressure systolic 120 mm Hg 09/09/2024 Weight 132 lbs 09/09/2024 BMI 28.56 kg/m2 09/09/2024 Procedures Procedure Date Ordered Date Performed Result Body Sit e 81233-VWYHOGM NAIL, 6 OR MORE 01/07/2024 N/A 10089-SWVO SKIN LESIONS, OVER 4 01/07/2024 N/A 31359-TGERWFH NAIL, 6 OR MORE 04/04/2024 N/A 91765-DHVP SKIN LESIONS, OVER 4 04/04/2024 N/A 38467-CFNMUWD NAIL, 6 OR MORE 09/09/2024 N/A 46766-MXCL SKIN LESIONS, OVER 4 09/09/2024 N/A Encounters Encounter Location Date Provider Diagnosis [address] [address] 01/07/2024 Yaz Kimbrough Hallux valgus (acquired), right foot M20.11 ; [...] of right foot M77.51 and Arthritis M19.[address] [address] 04/04/2024 Yaz Black Tinea unguium B35.1 and Type 1 diabetes mellitus with diabetic polyneuropathy E10.[address] [address] 09/09/2024 Yaz Black Tinea unguium B35.1 ; Hallux valgus (acquired), right foot M20.11 ; Type 1 diabetes mellitus with diabetic polyneuropathy E10.42 ; Tinea pedis of both feet B35.3 ; Pain in right ankle and joints of right foot M25.571 ; Bursitis of right foot M77.51 and Arthritis M19.[address] [address] 03/11/2024 Yazjorge alberto Kimbrough [address] [address] 03/25/2024 Yaz Kimbrough [address] [address] 07/10/[address] [address] 10/03/2024 Yaz Kimbrough Assessments Encounter Date Diagnosis (ICD Code) Assessment Notes Treatment Notes Treatment Clinical Notes Section Notes 01/07/2024 Hallux valgus (acquired), right foot (ICD-10 [...] with diabetic polyneuropathy (ICD-10 - E10.42) 01/07/2024 Tinea unguium (ICD-10 - B35.1) 09/09/2024 Tinea pedis of both feet (ICD-10 - B35.3) 09/09/2024 Pain in right ankle and joints of right foot (ICD-10 - M25.571) 01/07/2024 Pain in right toe(s) (ICD-10 - M79.674) 01/07/2024 Pain in left toe(s) (ICD-10 - M79.675) 09/09/2024 Bursitis of right foot (ICD-10 - M77.51) 09/09/2024 Arthritis (ICD-10 - M19.90) 01/07/2024 Pain in right foot (ICD-10 - M79.671) 01/07/2024 Pain in right ankle and joints of right foot (ICD-10 - M25.571) 01/07/2024 Bursitis of right foot (ICD-10 - M77.51) 01/07/2024 Arthritis (ICD-10 - M19.90) Plan Of Treatment Pending Test Test Name Order Date 02562-CBYYPXR NAIL, 6 OR MORE 02/03/2021 94577-CLLOVDP NAIL, 6 OR MORE 05/23/2021 37840-RXJWBUN NAIL, 6 OR MORE 09/22/2021 35966-RSJWECU NAIL, 6 OR MORE 04/27/2022 64349-GTFUZFW NAIL, 6 OR MORE 08/14/2022 73263-RCSSILG NAIL, 6 OR MORE 01/30/2022 82044-EUSXUKI NAIL, 6 OR MORE 11/23/2022 43417-CAPUZSF NAIL, 6 OR MORE 03/08/2023 40954-RFKKYEC NAIL, 6 OR MORE 06/21/2023 03316-FZQFCNT NAIL, 6 OR MORE 09/27/2023 54408-JFFEDHH NAIL, 6 OR MORE 01/07/2024 76560-YKVPHXL NAIL, 6 OR MORE 04/04/2024 17575-GCGRAOJ NAIL, 6 OR MORE 09/09/2024 05199-AKUG SKIN LESIONS, OVER 4 09/09/19 25 63237-SPAI SKIN LESIONS, OVER 4 04/04/20 24 49000-PXDB SKIN LESIONS, OVER 4 06/21/20 23 09599-AWXX SKIN LESIONS, OVER 4 01/07/20 24 06927-VDLB SKIN LESIONS, OVER 4 09/27/19 24 68148-HYRT SKIN LESIONS, OVER 4 03/08/20 23 64640-GYYG SKIN LESIONS, OVER 4 08/14/19 23 83080-SBAF SKIN LESIONS, OVER 4 11/24/19 23 57009-LCZD SKIN LESIONS, 2 TO 4 01/31/20 22 09404-HXXH SKIN LESIONS, 2 TO 4 04/27/20 22 48581, Y7156-SCDYZ/INJECT, JOINT/BURSA 1 08/21/2022 73247, L7643-IAIGD/INJECT, JOINT/BURSA 0 09/27/2023 Next Appt Details Provider Name:Yaz Hannon Luis E , 12/16/2024 03:30:00 PM, [address] [facility] [place], [place], [address], Insurance Providers Payer Name Payer Address Payer Phone Subscriber Number Group Number Insured Name Patient Relationship to Insured Coverage Start Date Coverage End Date Medicare [employer] [address] [place] [address] [id number] Bernard Navarro Self - patient is the insured Medical (General) History Medical History History ICD Code type I diabetes - brittle diabetic Hypothyroidism Vitamin D deficiency Down's syndrome depressive disorder Impulse Control disorder Periodontal disease Cholesterol Reflux Hypertension Low kidney function Surgical History Surgery Date(Month/Year) bunionectomy- right foot Tooth extraction x4 06/26/23, 07/10/23 [place] Reason [place] [facility] [place] - Diabetic Ketoa cidosis (DKA) [place] [facility] [place]
--- OUTSIDE RECORDS SUMMARY | 2024-10-23 11:33 | XMS_ITS ---
[facility] Address [address] [facility] [place] [place] [address] Care Team Providers Care Carnival Worker Name Role Phone Boris Mcgowan Primary Care Provider Yaz Ramirez Unavailable [phone] Allergies Allergen (clinical drug ingredient) Drug/Non Drug [...] in water Orally Active MiraLax Active Ipratropium [place] Active Lantus 100 UNIT/ML as directed Subcutaneous 15 units Active Glucose 4 GM PRN Orally Active Ferrous Sulfate 325 (65 Fe) MG 1 tablet Orally every day Active Folic Acid 800 MCG 1 tablet Orally Once a day for 30 day(s) Active Dulcolax Active Docusate Sodium Acti ve Cetirizine HCl 10 MG 1 tablet Orally Once a day for 30 day(s) Active Creon 21301-79864 UNIT as directed Orally Active Aspirin 81 [...] Ordered Date Performed Result Body Sit e 08842-VCJACCU NAIL, 6 OR MORE 09/09/2024 N/A 35084-RXNE SKIN LESIONS, OVER 4 09/09/2024 N/A Encounters Encounter Location Date Provider Diagnosis [facility] [address] 09/09/2024 Yaz Black Tinea unguium B35.1 ; [...] days Pending Test Test Name Order Date 07192-[id number] NAIL, 6 OR MORE 09/09/2024 30501-LGHM SKIN LESIONS, OVER 4 09/09/19 Next Appt Details Follow Up: prn, Reason: Provider Name:Yaz Kimbrough , 12/16/2024 03:30:00 PM, [address] [facility], [place], [address], Procedure Notes * Category Sub-Category Detail Notes [...] use of a nail nipper and/or dremel-type lap grinder, to a more viable healthy nail plate [...] to maintain effectiveness in symptomatic relief - 39547 Keratoma Treatment Parring or Cutting o f [...] instrumentation by the physician of record - 18208 Progress Notes * Bernard NAVARRODOEdith:1980 ([age] yo M)Acc No.[id number]:09/09/2024 Progress Note Patient:?Bernard NAVARRO Provider:?Yaz Kimbrough DPM :1980???Age:43 Y???Sex:Male Sanjay e:09/09/2024 Address:[address] [place], [place] [id number] Pcp:Boris Mcgowan Subjective: * Chief Complaints: * [...] 1 tablet Orally Once a day Creon 42532-24211 UNIT Capsule Delayed Release Particles as directed Orally Desitin Docusate Sodium Dulcolax Ferrous Sulfate 325 (65 Fe) MG Tablet 1 tablet Orally every day Folic Acid 800 MCG Tablet 1 tablet Orally Once a day Glucose 4 GM Tablet Chewable PRN Orally HumaLOG , Notes to Pharmacist: sliding scaleIpratropium [place] Lantus 100 UNIT/ML Solution as directed Subcutaneous [...] tablet Orally Once a day Taking Creon 72036-24796 UNIT Capsule Delayed Release Particles as directed Orally Taking Desitin Taking Docusate Sodium Taking Dulcolax Taking Ferrous Sulfate 325 (65 Fe) MG Tablet 1 tablet Orally every day Taking Folic Acid 800 MCG Tablet 1 tablet Orally Once a day Taking Glucose 4 GM Tablet Chewable PRN Orally Taking HumaLOG , Notes to Pharmacist: sliding scaleTaking Ipratropium [place] Taking Lantus 100 UNIT/ML Solution as directed [...] 2 mL Inhalation Twice a day Vane [place] Folvite-Fe OLANZapine 2.5 MG Tablet 1 tablet [...] mL Inhalation Twice a day Not-Taking/PRN Basaglar KwikPen Not-Taking/PRN Colace Not-Taking/PRN DuoNeb Not-Taking/PRN Folvite-Fe Not-Taking/PRN [...] 9.8 * Examination: ???Ophthalmology Referral: ?DIABETES EYE EXAM?Procedure Performed:?Yes ?Date of Exam Performed?04/23/2024?General Examination: ?GENERAL APPEARANCE:?Reveals a pleasant, alert, well nourished, well- developed, well hydrated individual, who demonstrates proper attention to hygiene/body habitus, and is in no acute distress, Pt serves as own historian for office visit today.?ORIENTED:?person, place, and time.?Vascular: ?DP PULSES (B):? 07/26, B/L.?PT PULSES (B):? 2/4, B/L.?CAPILLARY FILL TIME:?immediate, [...] 2.?Type 1 diabetes mellitus with diabetic polyneuropathy?Procedure: 83876-OZRD SKIN LESIONS, OVER 4 3.?Tinea pedis of [...] use of a nail nipper and/or dremel-type lap grinder, to a more viable healthy nail plate [...] to maintain effectiveness in symptomatic relief - 30930.?Keratoma Treatment:?Parring or Cutting of Benign Hyperkeratotic Lesion(s)?(-57) [...] instrumentation by the physician of record - 63919.? * Procedure Codes:?98470 DEBRI DE NAIL, 6 OR MORE, Modifiers: XS 58127 TRIM SKIN LESIONS, OVER 4, Modifiers: XS [...] Provider:?Yaz Kimbrough DPM Date:?2024 Generated for Glendy wright/Lita/eTransmitting on:?10/23/2024 11:32 AM EDT History and Physical Notes * HPI (History [...]
--- OUTSIDE RECORDS SUMMARY | 2024-10-23 11:33 | XMS_ITS ---
Author Organization [facility] Address [address] [place] [address] Care Team Providers Care Seat Joiner Name Role Phone Boris Mcgowan Primary Care Provider Yaz Ramirez [phone] REASON FOR VISIT Medications Encounters Encounter Location Date Provider Diagnosis [address] [address] 10/03/2024 Yaz Kimbrough Plan Of Treatment Next Appt Details Provider Name:Yaz Parvez Kimbrough , 12/16/2024 03:30:00 PM, [address] [facility], [place], [address], Progress Notes * Bernard NAVARRODOB:1980 ([age] yo M)Acc No.[id number]:10/03/2024 Patient:?ANGELLA Bernard :1980???Age:43 Y???Sex:Male Address:[address] [place] [address], [address] * true * Date:? Generated for Printi ng/Faxing/eTransmitting on:?10/23/2024 11:33 AM EDT
--- OUTSIDE RECORDS SUMMARY | 2024-10-23 11:33 | XMS_ITS | Clinical Summary ---
Author Organization [facility] Facility Address [address] [address] Care Team Providers Care Process Line Operator Name Role Phone Boris Mcgowan MD Primary Care Provider [phone] Allergies No known active allergies Medications aspirin [...] [place] Care Teams Process Line Operator Relationship Specialty Start Date End Date Boris Mcgowan MD [address] [place] PCP - General 08/02/20
== END 2024-10-23 11:08 | disposition home or self-care (01) ==
LOC: HO.HUSH 10:28
PROVIDERS: PCP Internal Medicine; Visit Provider Nurse Practitioner Family
DX: R30.0 Dysuria (principal); N41.9 Inflammatory disease of prostate, unspecified; Z13.9 Encounter for screening, unspecified
CPT/HCPCS: 99214; G2211

== ENCOUNTER → 2024-10-23 10:27 | Outpatient (BNVA) | payer MEDICARE, MEDICAID, SELFPAY | PROVIDERS: PCP Internal Medicine; Visit Provider Nurse Practitioner Family | DX: R30.0 Dysuria (principal); N41.9 Inflammatory disease of prostate, unspecified; N31.9 Neuromuscular dysfunction of bladder, unspecified; N39.0 Urinary tract infection, site not specified; N45.1 Epididymitis | CPT/HCPCS: 51798; 81003; 99212 ==

== ENCOUNTER 2024-10-27 09:40 | Inpatient (IN) | payer MEDICARE, MEDICAID, SELFPAY ==
[2024-10-27] VITALS (7 sets, daily range): BP systolic 130–178; BP diastolic 64–80; PULSE 60–77; RESP 16–18; TEMP 36.4–36.8; O2SAT 97–100; BMI 32.5; BMI 29.1
--- NOTE | ~2024-10-27 | CT_ITS ---
EXAMINATION: CT ABDOMEN PELVIS WITHOUT IV CONTRAST HISTORY: diffuse abdominal pain COMPARISON: Comparison is made with the prior examination dated 02/10/2023. TECHNIQUE: CT scan of the abdomen and pelvis was performed without contrast using standard departmental protocol. Coronal and sagittal reformatted images were generated and reviewed. Oral contrast material was not administered at the request of the referring physician. This CT exam was performed with one or more of the following dose reduction techniques: automated exposure control, adjustment of the mA and/or kV according to patient size, use of iterative reconstruction technique. DLP: 500 mGy-cm FINDINGS: LOWER CHEST: The visualized lung bases are clear. There is no pleural effusion. CARDIOVASCULATURE: The heart is normal in size. There is no pericardial effusion. LIVER: The liver is normal in size and contour. There is a subcentimeter hypodensity in the left lobe adjacent to the gallbladder without change. GALLBLADDER / BILE DUCTS: The gallbladder is unremarkable. There is no intra or extrahepatic biliary ductal dilatation. SPLEEN: The spleen is normal in size and has an unremarkable unenhanced appearance. PANCREAS: There is moderate peripancreatic inflammatory stranding consistent with acute pancreatitis. Evaluation for pancreatic necrosis is not possible without IV contrast. There is no peripancreatic fluid collection. ADRENAL GLANDS: Unremarkable. KIDNEYS/RETROPERITONEUM: No renal calculi are identified. There is no hydronephrosis. LYMPH NODES: No retroperitoneal lymphadenopathy is identified in the abdomen or pelvis. VASCULATURE: The abdominal aorta demonstrates atherosclerotic calcification, but is normal in caliber. MESENTERY/PERITONEUM: No free fluid. No masses. There is no free intraperitoneal gas. STOMACH: There is a small hiatal hernia. The remainder of the stomach is collapsed. SMALL BOWEL: The small bowel is normal in caliber. COLON: The colon is mostly unremarkable. Evaluation is limited by patient motion. APPENDIX: Normal. URINARY BLADDER/PELVIC ORGANS: The urinary bladder is unremarkable. The prostate is normal in size. BONES / SOFT TISSUES: No suspicious bony or soft tissue abnormalities. CT/CT abdomen pelvis wo IV con IMPRESSION: Findings consistent with acute pancreatitis as described. Electronically signed by: Rhys Chambers MD 10/27/2024 11:18 AM EDT
--- NOTE | ~2024-10-27 | US_ITS ---
CLINICAL HISTORY: r o gallstone source of pancreatitis US abdomen limited Comparison: 10/27/2024 CT abdomen and pelvis Findings: Mild peripancreatic edema and fluid noted. No pancreatic ductal dilatation. No biliary ductal dilatation. The common duct measures 2 mm at the rubina hepatis. Normal gallbladder without gallstone, sludge, wall thickening, or pericholecystic fluid. Right kidney unremarkable. IMPRESSION: No findings of cholecystitis, cholelithiasis, choledocholithiasis, or biliary ductal dilatation. Peripancreatic fluid and fat stranding consistent with pancreatitis. This document has been electronically signed by: Dioni Sanchez MD on 10/27/2024 19:25:18
--- NOTE | ~2024-10-27 | NM_ITS ---
EXAMINATION: NM LUNG IMAGE PERFUSION CLINICAL INFORMATION: Chest pain with elevated d-dimer. COMPARISON: No prior. Correlation with chest x-ray dated 10/27/2024. TECHNIQUE: Nuclear perfusion scan was performed after the IV administration of 4 mCi technetium 99m-MAA. Images obtained in the anterior, lateral, GRIMALDO, RPO, CARTER, LPO projections. FINDINGS: There are no perfusion defects. Normal perfusion examination. NM/NM pul perfusion IMPRESSION: No perfusion defects. Normal exam. Electronically signed by: Juan Wood MD 10/27/2024 01:48 PM EDT
--- NOTE | ~2024-10-27 | XR_ITS ---
EXAMINATION: XR CHEST CLINICAL INFORMATION: dyspnea COMPARISON: March 27, 2022 TECHNIQUE: Frontal view of the chest was obtained. FINDINGS: Indistinct margins in the perihilar regions and prominence of the interstitial lung markings. Low lung volume. No pleural effusion. No pneumothorax. Cardiomediastinal silhouette size is normal. Osseous structures are intact. Degenerative changes in the acromioclavicular joints. XR/XR chest 1V IMPRESSION: Mild interstitial lung edema in the correct clinical settings. Cardiogenic versus nephrogenic. Electronically signed by: Donny Pritchard MD 10/27/2024 11:24 AM EDT
[2024-10-27 09:55] LABS: Glucose, Whole Blood 63 mg/dL (60-115)
[2024-10-27] MEDS: Glucose Gel 15 GM GEL..GRAM. PO (09:56)
--- NOTE | 2024-10-27 09:56 | PC.NURSE ---
Pt's POC BG on arrival 63; pt alert, skin PWD; pt gv oral glucose; will recheck POC in 20 minutes; MD at bedside
--- NOTE | 2024-10-27 10:01 | ECG_ITS ---
Test Reason : syncope Blood Pressure : */* mmHG Vent. Rate : 66 BPM Atrial Rate : 66 BPM P-R Int : 114 ms QRS Dur : 84 ms QT Int : 430 ms P-R-T Axes : 39 -6 26 degrees QTcB Int : 450 ms Normal sinus rhythm Normal ECG When compared with ECG of 02-Oct-2022 11:06, No significant change was found Referred By: Karoline Salgado Electronically Signed By: Jordan Nevarez
[2024-10-27 10:22] LABS: MANUAL DIFF FLAG NO
[2024-10-27 10:26] LABS: Basophils Absolute Auto 0.1 X10*3/uL (0.0-0.2); Basophils Percent Auto 1.3 % (0-2); Eosinophils Absolute Auto 0.3 X10*3/uL (0.0-0.4); Eosinophils Percent Auto 5.4 % (0-4); Hematocrit 34.9 % (42.0-52.0); Hemoglobin 11.9 g/dl (14.0-18.0); Imm Gran Abs Auto 0.02 X10*3/uL (0.00-0.03); Imm Gran Pct Auto 0.3 % (0.0-0.4); Lymphocytes Absolute Auto 0.8 X10*3/uL (1.2-4.9); Lymphocytes Percent Auto 13.4 % (20-40); Mean Corpuscular HGB Conc 34.1 g/dl (31.0-36.0); Mean Corpuscular Hemoglobin 30.9 pg (27.0-33.0); Mean Corpuscular Volume 90.6 fL (80.0-98.0); Mean Platelet Volume 9.3 fL (9.4-12.4); Monocytes Absolute Auto 0.4 X10*3/uL (0.1-1.2); Neutrophils Absolute Auto 4.5 x10*3/uL (2.0-8.3); Neutrophils Percent Auto 72.6 % (45-73); Platelet Count 387 X10*3/uL (160-400); Red Blood Count 3.85 X10*6/uL (4.60-5.80); Red Cell Distribution Width 14.4 % (11.0-16.0); White Blood Count 6.3 X10*3/uL (4.8-10.8)
[2024-10-27 10:33] LABS: D Dimer High Sensitivity 356 NG/ML
[2024-10-27 10:45] LABS: Alanine Aminotransferase 20 U/L (0-40); Albumin Level 2.3 g/dL (3.5-5.0); Alkaline Phosphatase 83 U/L (39-117); Anion Gap 9 (12-20); Aspartate Amino Transferase 28 U/L (5-37); B Type Natriuretic Peptide 61 pg/mL (<100); Bilirubin Direct < 0.2 mg/dL (0.0-0.5); Bilirubin Total 0.1 mg/dL (0.0-1.0); Blood Urea Nitrogen 45 mg/dL (9-16); Calcium 8.3 mg/dL (8.4-10.2); Carbon Dioxide 26 mmol/L (22-29); Chloride 109 mmol/L (96-108); Creatinine Clr Calc Pharmacy 35.3; Estimated Glomerular Filt Rate 36; Glucose Random 58 mg/dL (60-115); Lipase 8 U/L (8-78); Magnesium 1.9 mg/dL (1.6-2.6); Potassium 5.3 mmol/L (3.3-5.1); Sodium 139 mmol/L (135-145); Total Protein 5.4 g/dL (6.5-8.0)
[2024-10-27 10:47] LABS: Troponin-I High Sensitivity 6.9 ng/L (<3.5-35.0)
[2024-10-27 10:51] LABS: Glucose, Whole Blood 124 mg/dL (60-115)
--- NOTE | 2024-10-27 10:53 | ED_ITS ---
HPI - Abdominal Pain General Chief Complaint: Abdominal Pain Stated Complaint: ABD PAIN,RECENT UTI,ERRATIC BEHAVIOR,FROM [facility] HOME Time Seen by Provider: 10/27/24 09:49 Source: patient, EMS, old records reviewed and other (caregiver) Mode of arrival: EMS Limitations: other (cognitive impairment) History of Present Illness ED Provider: MIKE HPI narrative: 43 yo male with PMH of Down syndrome, CKD, DM, anemia, HTN, dysphagia who was started on doxy for prostatitis by Urology on 10/23. He reportedly woke up fine today and then c/o abdominal pain he then writhed around on the floor yelling and c/o chest pain as well. MD elicited complaint: abdominal pain Pertinent past history: other Onset (ago): hour(s) (1) Pain Consistency: constant Location: diffuse Severity: moderate Quality: other Radiation: none Migration to: no migration Exacerbating factors: nothing Relieving factors: nothing Context: other (he just says my belly hurts then rubs his whole belly ) Associated symptoms: denies other symptoms Related Data Home Medications ?Medication ?Instructions ?Recorded ?Confirmed arformoterol 15 mcg/2 mL solution 2 ml inhalation BID 02/10/23 10/23/24 for nebulization insulin lispro 100 unit/mL 1 sliding scale dose subcut TIDAC 02/10/23 10/23/24 subcutaneous pen (Humalog KwikPen (U-100) Insulin) zinc oxide-cod liver oil 40 % 1 appl topical DAILY 02/10/23 10/23/24 topical paste (Desitin) ciclopirox 0.77 % topical cream 1 appl topical BID 03/06/23 10/23/24 lorazepam 0.5 mg tablet (Ativan) 0.5 mg PO BEDTIME PRN 03/06/23 10/23/24 citalopram 20 mg tablet 20 mg PO DAILY 11/22/23 10/23/24 insulin glargine 100 unit/mL (3 15 unit subcut BEDTIME 03/07/24 10/23/24 mL) subcutaneous pen (Lantus Solostar U-100 Insulin) blood sugar diagnostic (FreeStyle #10 ea 04/22/24 10/23/24 Lite Strips) pen needle, diabetic, safety 32 #100 ea 04/22/24 10/23/24 gauge x 5/32 (True Comfort Safety Pen Needle) diclofenac sodium 1 % topical gel 4 g topical QID 04/24/24 10/23/24 levothyroxine 100 mcg tablet 112 mcg PO DAILY 07/25/24 10/23/24 pen needle, diabetic 33 gauge x #100 ea 07/25/24 10/23/2432 (Comfort EZ Pen [place]) Previous Rx's ?Medication ?Instructions ?Recorded bisacodyl 5 mg tablet,delayed 10 mg (2 x 5 mg) PO BEDTIME #180 11/02/23 release (Dulcolax (bisacodyl)) tabs docusate sodium 100 mg capsule 200 mg (2 x 100 mg) PO BEDTIME 02/12/24 #180 caps ferrous sulfate 325 mg (65 mg 325 mg PO .COMPLEX #30 tabs 03/07/24 iron) tablet,delayed release nystatin 100,000 unit/gram topical 1 appl topical BID PRN groin rash 03/07/24 powder #60 grams ipratropium 0.5 mg-albuterol 3 mg 3 ml inhalation BID Cough 30 days 04/09/24 (2.5 mg base)/3 mL nebulization #180 mL soln metoprolol succinate 25 mg 25 mg PO DAILY #90 tabs 04/09/24 tablet,extended release 24 hr bisacodyl 10 mg rectal suppository 10 mg [place] DAILY PRN constipation 04/22/24 (Dulcolax (bisacodyl)) #30 ea sodium zirconium cyclosilicate 5 5 g PO .COMPLEX #11 ea 05/09/24 gram oral powder packet (Lokelma) acetaminophen 325 mg tablet 650 mg (2 x 325 mg) PO Q6H PRN 06/09/24 (Tylenol) pain #30 tabs ascorbic acid (vitamin C) 500 mg 500 mg PO DAILY #90 tabs 06/09/24 tablet (Vitamin C) cetirizine 10 mg tablet 10 mg PO DAILY PRN allergy 06/09/24 symptoms 90 days #90 tabs folic acid 800 mcg tablet 0.8 mg PO DAILY #90 tabs 06/09/24 polyethylene glycol 3350 17 17 g PO DAILY #510 grams 06/18/24 gram/dose oral powder (Miralax) tamsulosin 0.4 mg capsule 0.8 mg (2 x 0.4 mg) PO DAILY@1700 07/04/24 90 days #180 caps cholecalciferol (vitamin D3) 1,250 1,250 mcg PO QWEEK 12 weeks #12 07/24/24 mcg (50,000 unit) capsule caps amlodipine 5 mg tablet 5 mg PO DAILY #90 tabs 08/12/24 azithromycin 250 mg tablet 250 mg PO .Sunday08/19/24 days #13 tabs omeprazole 20 mg capsule,delayed 20 mg PO DAILY #30 caps 09/01/24 release simvastatin 20 mg tablet 20 mg PO BEDTIME #30 tabs 09/24/24 famotidine 20 mg tablet (Pepcid) 20 mg PO BEDTIME #30 tabs 10/06/24 qhlbyp-arpmaopi-pyxelwl 1 cap PO QID #120 caps 10/21/24 24,000-76,000-120,000 unit capsule,delayed rel (Creon) doxycycline hyclate 100 mg tablet 100 mg PO BID 28 days #56 tabs 10/23/24 aspirin 81 mg tablet,delayed 81 mg PO DAILY #90 tabs 10/24/24 release dextromethorphan polistirex 30 10 ml PO .QHS PRN cough #89 mL 10/24/24 mg/5 mL oral susp ext.release 12hr (Delsym 12 hour) glucagon HCl 1 mg solution for 1 mg subcut ONCE PRN hypoglycemia 10/24/24 injection (Glucagon (HCl) #1 ea Emergency Kit) Allergies Allergy/AdvReac Type Severity Reaction Status Date / Time Sulfa (Sulfonamide Allergy Intermediate ITCHING Verified 10/27/24 09:50 Antibiotics) [SULFA(SULFONAMIDE ANTIBIOTICS)] Review of Systems Review of Systems ROS unable to be obtained due to cogitive impairment [facility] Past Medical History Attestation statement: The following information was validated with the patient. Source: old records reviewed Medical History Cellulitis Constipation Ascites Pericardial effusion Urethral meatal stenosis Mental and behavioral problem Renal insufficiency Hypercholesterolemia Down syndrome GERD (gastroesophageal reflux disease) BPH (benign prostatic hyperplasia) Hypothyroid Anxiety and depression Pseudoseizures Diabetes mellitus type 1 Surgical History Hx of cataract surgery Family History Family History Father Medical history unknown Mother Medical history unknown Maternal Grandfather Prostate cancer Social History Social History Household Members: None Household Members Other:: other residents and staff Housing: Other Housing Other:: penitentiary Unable to assess alcohol history related to: Unable to respond Alcohol intake: never Comment: 1:1 Sitter Patient Tobacco Use Status: Never used Tobacco Smoked in Last 30 Days: No e-Cigarette/Vaping Use: Never Used Second Hand Smoke Exposure: No Advance Directives: No Advance Directives Information Provided: No Do you have a plan to hurt others: No Plan service: No Current occupational status: disabled Cognitive needs: No Hearing needs: No Vision needs: No Physical Exam ED Vital Signs: Vital Signs - 24 hr 10/27/24 09:48 10/27/24 15:30 Temperature 98 F 97.8 F Pulse Rate 77 61 Respiratory Rate 18 16 Blood Pressure 178/80 H 172/66 H Pulse Oximetry 98 100 Oxygen Delivery Method Room Air BMI result Body Mass Index 32.5 Appearance: Alert. Oriented at baseline. No acute distress. Eyes: Pupils equal, round and reactive to light. ENT: Pharynx normal. Neck: Normal inspection. Neck supple. CVS: Normal heart rate and rhythm. Pulses normal. Respiratory: No respiratory distress. Breath sounds normal. Abdomen: Soft and non-tender. No mass felt. Skin: Skin warm and dry. Normal skin color. Extremities: No lower extremity edema. Neuro: Oriented at baseline. No motor deficit. No sensory deficit. CN2-12 intact Course Course Course Narrative: perfusion scan negative for VTE Medical Decision Making Medical Decision Making MDM Narrative: 43 yo male with PMH of Down syndrome, CKD, DM, anemia, HTN, dysphagia who presents with wide array of symptoms including abdominal pain, chest pain, blood sugars lower after insulin admin, speech slightly slurred but improved after correcting BG. He is not a good historian and staff can only relay what he says. At this time given symptoms will obtain basic labs, CT scan of abdomen dry given CKD for pathology, trop x 2, ddimer if positive will need CXR and VQ scan. He is not having pain now and is at baseline. BS low on arrival corrected with oral glucose suspect that was due to insulin admin after breakfast and BS only 190 Differential Diagnosis Differential Diagnoses: The differential diagnosis associated with the presentation includes abdominal pathology, ACS, VTE, complex wide differential Admission/Observation Consideration of admission/observation: Escalation of care including admission/observation considered given CT scan and very poor historian he is intermittently agitated his BS is up now will admit for fluids and bowel rest Consult Healthcare Provider Management of the patient was discussed with: Hospitalist (will admit) Lab Data MDM Lab Attestation statement: I reviewed the patient's lab results. 10/27/24 10:18 10/27/24 10:18 Labs: Lab Results 10/27/24 10/27/24 10/27/24 Range/Units 09:51 10:18 10:44 WBC 6.3 (4.8-10.8) X10*3/uL RBC 3.85 L (4.60-5.80) X10*6/uL Hgb 11.9 L (14.0-18.0) g/dl Hct 34.9 L (42.0-52.0) % MCV 90.6 (80.0-98.0) fL MCH 30.9 (27.0-33.0) pg MCHC 34.1 (31.0-36.0) g/dl RDW 14.4 (11.0-16.0) % Plt Count 387 (160-400) X10*3/uL MPV 9.3 L (9.4-12.4) fL Immature Gran % (Auto) 0.3 (0.0-0.4) % Neut % (Auto) 72.6 (45-73) % Lymph % (Auto) 13.4 L (20-40) % [place] % (Auto) 7.0 (2-11) % Eos % (Auto) 5.4 H (0-4) % Baso % (Auto) 1.3 (0-2) % Lymph # (Auto) 0.8 L (1.2-4.9) X10*3/uL [place] # (Auto) 0.4 (0.1-1.2) X10*3/uL Eos # (Auto) 0.3 (0.0-0.4) X10*3/uL Baso # (Auto) 0.1 (0.0-0.2) X10*3/uL Abs Immat Gran (auto) 0.02 (0.00-0.03) X10*3/uL Absolute Neuts (auto) 4.5 (2.0-8.3) x10*3/uL Absolute Nucleated RBC 0.000 (0.0-0.012) X10*3/uL Nucleated RBC % (auto) 0.0 (0.0-0.2) /100WBC D-Dimer High Sensitivty 356 NG/ML Sodium 139 (135-145) mmol/L Potassium 5.3 H (3.3-5.1) mmol/L Chloride 109 H (96-108) mmol/L Carbon Dioxide 26 (22-29) mmol/L Anion Gap 9 L (12-20) BUN 45 H (9-16) mg/dL Creatinine 2.02 H (0.5-1.4) mg/dL Estim Creat Clear Calc 35.3 Estimated GFR 36 POC Glucose 63 (60-115) mg/dL Random Glucose 58 L* (60-115) mg/dL Lactic Acid 0.6 (0.5-2.0) mmol/L Calcium 8.3 L (8.4-10.2) mg/dL Magnesium 1.9 (1.6-2.6) mg/dL Total Bilirubin 0.1 (0.0-1.0) mg/dL Direct Bilirubin < 0.2 (0.0-0.5) mg/dL AST 28 (5-37) U/L ALT 20 (0-40) U/L Alkaline Phosphatase 83 (39-117) U/L Lactate Dehydrogenase 217 (118-273) U/L Troponin I High Sens 6.9 D (<3.5-35.0) ng/L B-Natriuretic Peptide 61 (<100) pg/mL Total Protein 5.4 L (6.5-8.0) g/dL Albumin 2.3 L (3.5-5.0) g/dL Triglycerides 192 H (<150) mg/dL Lipase 8 (8-78) U/L Urine Color Urine Appearance Urine pH (5.0-9.0) Ur Specific [place] (1.005-1.025) Urine Protein (Neg-Trace) mg/dL Urine Glucose (UA) (Negative) mg/dL Urine Ketones (Negative) mg/dL Urine Blood (Negative) Urine Nitrite (Negative) Ur Leukocyte Esterase (Negative) Urine RBC (0-2) /HPF Urine WBC (0-5) /HPF Ur Squamous Epith Cells (0-2) /HPF Urine Bacteria (None Seen) Hyaline Casts (0-2) /LPF Influenza Type A (PCR) NEGATIVE (Negative) Influenza Type B (PCR) NEGATIVE (Negative) RSV RNA Qual (PCR) NEGATIVE (Negative) SARS-CoV-2 RNA (RT-PCR) NEGATIVE (Negative) 10/27/24 10/27/24 10/27/24 Range/Units 10:48 14:16 15:27 WBC (4.8-10.8) X10*3/uL RBC (4.60-5.80) X10*6/uL Hgb (14.0-18.0) g/dl Hct (42.0-52.0) % MCV (80.0-98.0) fL MCH (27.0-33.0) pg MCHC (31.0-36.0) g/dl RDW (11.0-16.0) % Plt Count (160-400) X10*3/uL MPV (9.4-12.4) fL Immature Gran % (Auto) (0.0-0.4) % Neut % (Auto) (45-73) % Lymph % (Auto) (20-40) % [place] % (Auto) (2-11) % Eos % (Auto) (0-4) % Baso % (Auto) (0-2) % Lymph # (Auto) (1.2-4.9) X10*3/uL [place] # (Auto) (0.1-1.2) X10*3/uL Eos # (Auto) (0.0-0.4) X10*3/uL Baso # (Auto) (0.0-0.2) X10*3/uL Abs Immat Gran (auto) (0.00-0.03) X10*3/uL Absolute Neuts (auto) (2.0-8.3) x10*3/uL Absolute Nucleated RBC (0.0-0.012) X10*3/uL Nucleated RBC % (auto) (0.0-0.2) /100WBC D-Dimer High Sensitivty NG/ML Sodium (135-145) mmol/L Potassium (3.3-5.1) mmol/L Chloride (96-108) mmol/L Carbon Dioxide (22-29) mmol/L Anion Gap (12-20) BUN (9-16) mg/dL Creatinine (0.5-1.4) mg/dL Estim Creat Clear Calc Estimated GFR POC Glucose 124 H (60-115) mg/dL Random Glucose (60-115) mg/dL Lactic Acid (0.5-2.0) mmol/L Calcium (8.4-10.2) mg/dL Magnesium (1.6-2.6) mg/dL Total Bilirubin (0.0-1.0) mg/dL Direct Bilirubin (0.0-0.5) mg/dL AST (5-37) U/L ALT (0-40) U/L Alkaline Phosphatase (39-117) U/L Lactate Dehydrogenase (118-273) U/L Troponin I High Sens 8.9 (<3.5-35.0) ng/L B-Natriuretic Peptide (<100) pg/mL Total Protein (6.5-8.0) g/dL Albumin (3.5-5.0) g/dL Triglycerides (<150) mg/dL Lipase (8-78) U/L Urine Color Yellow Urine Appearance Clear Urine pH 6.0 (5.0-9.0) Ur Specific [place] 1.020 (1.005-1.025) Urine Protein >=1000 (4+) H (Neg-Trace) mg/dL Urine Glucose (UA) Negative (Negative) mg/dL Urine Ketones Negative (Negative) mg/dL Urine Blood Trace H (Negative) Urine Nitrite Negative (Negative) Ur Leukocyte Esterase Negative (Negative) Urine RBC 0-2 (0-2) /HPF Urine WBC 0-5 (0-5) /HPF Ur Squamous Epith Cells 0-2 (0-2) /HPF Urine Bacteria None Seen (None Seen) Hyaline Casts 3-5 (0-2) /LPF Influenza Type A (PCR) (Negative) Influenza Type B (PCR) (Negative) RSV RNA Qual (PCR) (Negative) SARS-CoV-2 RNA (RT-PCR) (Negative) Independent Interpretation I performed an independent interpretation of an: EKG, Plain X-Ray (normal ) and CT Scan (pancreatitis) Interpretation: Rate: 66 Rhythm: NSR [place]: left Normal P waves. Normal ANUP. Normal QRS complex. ST T wave : normal no JASON qTC: 450 prior studies: no acute ischemia The study has been interpreted contemporaneously by me. . Radiology Impression Discussion of test interpretation with radiology: I have reviewed the radiologist's reading. Independent Historian Clinical information obtained from an independent historian. History obtained from or confirmed by: EMS External Record Review External record reviewed: Inpatient record and Outpatient record Medications Administered Generic Name Dose Route Start Last Admin Trade Name Freq PRN Reason Stop Dose Admin Lactated Ringer's 1,000 mls @ 80 mls/hr 10/27/24 13:15 10/27/24 14:17 Lr IVCONT 80 mls/hr .[id number] LINDA Administration Lorazepam 0.5 mg 10/27/24 11:41 10/27/24 12:27 Lorazepam 0.5 Mg Tablet PO 0.5 mg ONCE PRN Administration Anxiety Discontinued Medications Generic Name Dose Route Start Last Admin Trade Name Freq PRN Reason Stop Dose Admin Glucose 15 gm 10/27/24 09:54 10/27/24 09:56 Glucose Gel 15 Gm Gel..Gram. PO 10/27/24 09:55 15 gm ONCE ONE Administration Acetaminophen 1,000 mg in 100 mls @ 400 mls/hr 10/27/24 13:15 10/27/24 15:19 Ofirmev IV 10/27/24 13:29 Infused ONCE ONE Infusion Iohexol 100 ml 10/27/24 10:44 10/27/24 10:45 Iohexol 350 Mg/Ml 100 Ml Infus..Btl IV 10/27/24 10:45 Not Given ONCE ONE Discharge Plan Discharge Clinical Impression: Abdominal pain, Pancreatitis, Hypoglycemia Patient Disposition: Admitted As Inpatient Interventions: Admission Worksheet (ED) Last Done: 10/27/24 16:05
[2024-10-27 11:07] LABS: Lactic Acid 0.6 mmol/L (0.5-2.0)
--- NOTE | 2024-10-27 11:08 | PC.NURSE ---
Pt's repeat POC BG over 120 after oral glucose gv; pt resting quietly in room and appears in no acute distress; pt tolerating care well; staff member from [facility] at bedside; awaiting CT scan results; will cont to monitor/tx per orders
[2024-10-27 11:09] LABS: Influenza A PCR NEGATIVE (Negative); Influenza B PCR NEGATIVE (Negative); Resp Syncy Virus RNA Qual PCR NEGATIVE (Negative); SARS COV2 PCR INHOUSE NEGATIVE (Negative)
[2024-10-27 11:45] LABS: Lactate Dehydrogenase 217 U/L (118-273); Triglycerides 192 mg/dL (<150)
[2024-10-27] MEDS: LORazepam 0.5 MG TABLET PO (12:27)
--- NOTE | 2024-10-27 12:35 | PC.NURSE ---
Pt pre-medicated per orders for nuclear med. test; pt tolerating care well and appears in no acute distress at this time
--- OUTSIDE RECORDS SUMMARY | 2024-10-27 12:36 | XMS_ITS | Clinical Summary ---
Author Organization [facility] Facility Address [address] [address] Care Team Providers Care Hockey Scout Name Role Phone Boris Mcgowan MD Primary Care Provider [phone] Allergies No known active allergies Medications aspirin [...] Diabetes: Visual Foot Exam 08/23/2020 Influenza Vaccine (Season Ended) 2025 Insurance [place] Care Teams Hockey Scout Relationship Specialty Start Date End Date Boris Mcgowan MD [address] [place] PCP - General 08/02/20
--- OUTSIDE RECORDS SUMMARY | 2024-10-27 12:36 | XMS_ITS ---
Author Organization [facility] Address [address] [place] [address] Care Team Providers Care Shipping Hand Name Role Phone Boris Mcgowan Primary Care Provider Yaz Ramirez Unavailable [phone] Allergies Allergen (clinical drug ingredient) Drug/Non Drug [...] in water Orally Active MiraLax Active Ipratropium [place] Active Lantus 100 UNIT/ML as directed Subcutaneous 15 units Active Glucose 4 GM PRN Orally Active Ferrous Sulfate 325 (65 Fe) MG 1 tablet Orally every day Active Folic Acid 800 MCG 1 tablet Orally Once a day for 30 day(s) Active Dulcolax Active Docusate Sodium Acti ve Cetirizine HCl 10 MG 1 tablet Orally Once a day for 30 day(s) Active Creon 74201-79983 UNIT as directed Orally Active Aspirin 81 [...] Ordered Date Performed Result Body Sit e 45879-EMRHPCQ NAIL, 6 OR MORE 09/09/2024 N/A 52338-RPUN SKIN LESIONS, OVER 4 09/09/2024 N/A Encounters Encounter Location Date Provider Diagnosis [facility] [address] 09/09/2024 Yaz Black Tinea unguium B35.1 ; [...] days Pending Test Test Name Order Date 96447-SIBBKNX NAIL, 6 OR MORE 09/09/2024 02778-YYNF SKIN LESIONS, OVER 4 09/09/19 Next Appt Details Follow Up: prn, Reason: Provider Name:Yaz Kimbrough , 12/16/2024 03:30:00 PM, [address], [place], [address], Procedure Notes * Category Sub-Category Detail Notes [...] use of a nail nipper and/or dremel-type perlite grinder, to a more viable healthy nail [...] to maintain effectiveness in symptomatic relief - 96599 Keratoma Treatment Parring or Cutting o f [...] instrumentation by the physician of record - 99139 Progress Notes * Bernard NAVARRODOEdith:1980 ([age] yo M)Acc No.[id number]:09/09/2024 Progress Note Patient:?Bernard NAVARRO Provider:?Yaz Kimbrough DPM :1980???Age:43 Y???Sex:Male Sanjay e:09/09/2024 Address:[address] [place], [place] [id number] Pcp:Boris Mcgowan Subjective: * Chief Complaints: * [...] 1 tablet Orally Once a day Creon 35806-02917 UNIT Capsule Delayed Release Particles as directed Orally Desitin Docusate Sodium Dulcolax Ferrous Sulfate 325 (65 Fe) MG Tablet 1 tablet Orally every day Folic Acid 800 MCG Tablet 1 tablet Orally Once a day Glucose 4 GM Tablet Chewable PRN Orally HumaLOG , Notes to Pharmacist: sliding scaleIpratropium [place] Lantus 100 UNIT/ML Solution as directed Subcutaneous [...] tablet Orally Once a day Taking Creon 89060-77023 UNIT Capsule Delayed Release Particles as directed Orally Taking Desitin Taking Docusate Sodium Taking Dulcolax Taking Ferrous Sulfate 325 (65 Fe) MG Tablet 1 tablet Orally every day Taking Folic Acid 800 MCG Tablet 1 tablet Orally Once a day Taking Glucose 4 GM Tablet Chewable PRN Orally Taking HumaLOG , Notes to Pharmacist: sliding scaleTaking Ipratropium [place] Taking Lantus 100 UNIT/ML Solution as directed [...] 2.?Type 1 diabetes mellitus with diabetic polyneuropathy?Procedure: 74858-SDPQ SKIN LESIONS, OVER 4 3.?Tinea pedis of [...] use of a nail nipper and/or dremel-type perlite grinder, to a more viable healthy nail [...] to maintain effectiveness in symptomatic relief - 87085.?Keratoma Treatment:?Parring or Cutting of Benign Hyperkeratotic Lesion(s)?(-57) [...] instrumentation by the physician of record - 36503.? * Procedure Codes:?99426 DEBRI DE NAIL, 6 OR MORE, Modifiers: XS 96403 TRIM SKIN LESIONS, OVER 4, Modifiers: XS [...] Kimbrough DPM Date:?2024 Generated for Glendy wright/Lita/eTransmitting on:?10/27/2024 12:36 PM EDT History and Physical Notes * HPI [...]
--- OUTSIDE RECORDS SUMMARY | 2024-10-27 12:36 | XMS_ITS | Patient Health Record ---
Author Organization [facility] Address [address] [place] [address] Care Team Providers Care Bias Machine Operator Name Role Phone Boris Mcgowan Primary Care Provider Yaz Ramirez Unavailable [phone] Allergies Allergen (clinical drug ingredient) Drug/Non Drug [...] a day for 30 day(s) Active Creon 13681-36854 UNIT as directed Orally Active Aspirin 81 [...] in water Orally Active MiraLax Active Ipratropium [place] Active Lantus 100 UNIT/ML as directed Subcutaneous [...] Status Risk Notes Problem Acquired hallux valgus (78522457) Hallux valgus (acquired), left foot (M20.12) Active confirmed Problem Acquired hallux valgus (45409470) Hallux valgus (acquired), right foot (M20.11) Active confirmed Problem Acquired hallux valgus (61314016) Hallux valgus (acquired), right foot (M20.11) Active confirmed Problem Acquired hammer toe of right foot (4861507571346402 ) Other hammer toe(s) (acquired), right foot (M20.41) Active confirmed Problem Acquired hammer toe of left foot (8918761995616688 ) Other hammer toe(s) (acquired), left foot (M20.42) Active confirmed Problem Polyneuropathy due to diabetes mellitus type I (851754866) Type 1 diabetes mellitus with diabetic polyneuropathy (E10.42) Active confirmed Problem Arthritis (2773084) Arthritis (M19.90) Active confirmed Vital Signs Blood pressure diastolic 71 mm Hg 09/09/2024 Height 4ft 9in in 09/09/2024 Blood pressure systolic 120 mm Hg 09/09/2024 Weight 132 lbs 09/09/2024 BMI 28.56 kg/m2 09/09/2024 Procedures Procedure Date Ordered Date Performed Result Body Sit e 83240-ITBBZYQ NAIL, 6 OR MORE 01/07/2024 N/A 64712-YYXT SKIN LESIONS, OVER 4 01/07/2024 N/A 95861-IUYTIJB NAIL, 6 OR MORE 04/04/2024 N/A 03050-AAYJ SKIN LESIONS, OVER 4 04/04/2024 N/A 80662-GNNTMVB NAIL, 6 OR MORE 09/09/2024 N/A 59650-AOFD SKIN LESIONS, OVER 4 09/09/2024 N/A Encounters Encounter Location Date Provider Diagnosis [address] [address] 01/07/2024 Yaz Kimbrough Hallux valgus (acquired), right [...] of right foot M77.51 and Arthritis M19.[address] [address] 04/04/2024 Yaz Black Tinea unguium B35.1 and Type 1 diabetes mellitus with diabetic polyneuropathy E10.[address] [address] 09/09/2024 Yaz Black Tinea unguium B35.1 ; Hallux valgus (acquired), right foot M20.11 ; Type 1 diabetes mellitus with diabetic polyneuropathy E10.42 ; Tinea pedis of both feet B35.3 ; Pain in right ankle and joints of right foot M25.571 ; Bursitis of right foot M77.51 and Arthritis M19.[address] [address] 03/11/2024 Yazjorge alberto Kimbrough [address] [address] 03/25/2024 Yaz Kimbrough [address] [address] 07/10/[address] [address] 10/03/2024 Yaz Kimbrough Assessments Encounter Date Diagnosis [...] Treatment Pending Test Test Name Order Date 85769-QCQQVIQ NAIL, 6 OR MORE 02/03/2021 99881-XKKYCEF NAIL, 6 OR MORE 05/23/2021 59619-NYEXJCR NAIL, 6 OR MORE 09/22/2021 23962-LBKMNSM NAIL, 6 OR MORE 04/27/2022 82136-FJHNTEO NAIL, 6 OR MORE 08/14/2022 59442-IZDIMZW NAIL, 6 OR MORE 01/30/2022 90636-MJEZKBC NAIL, 6 OR MORE 11/23/2022 86888-NQOHEIU NAIL, 6 OR MORE 03/08/2023 43187-JFBMCJA NAIL, 6 OR MORE 06/21/2023 08624-UDDGVXV NAIL, 6 OR MORE 09/27/2023 88335-ODZHDWJ NAIL, 6 OR MORE 01/07/2024 65892-WUBPAWT NAIL, 6 OR MORE 04/04/2024 13915-RFZAOPG NAIL, 6 OR MORE 09/09/2024 11848-WKQW SKIN LESIONS, OVER 4 09/09/19 25 63223-LTTP SKIN LESIONS, OVER 4 04/04/20 24 68303-HFPG SKIN LESIONS, OVER 4 06/21/20 23 35946-DBNL SKIN LESIONS, OVER 4 01/07/20 24 21785-TODW SKIN LESIONS, OVER 4 09/27/19 24 72559-KZNU SKIN LESIONS, OVER 4 03/08/20 23 46138-LBVM SKIN LESIONS, OVER 4 08/14/19 23 32270-APUW SKIN LESIONS, OVER 4 11/24/19 23 40348-TUAT SKIN LESIONS, 2 TO 4 01/31/20 22 70682-QDRQ SKIN LESIONS, 2 TO 4 04/27/20 22 52286, E8319-BMQSN/INJECT, JOINT/BURSA 1 08/21/2022 73524, C7394-RDHGM/INJECT, JOINT/BURSA 0 09/27/2023 Next Appt Details Provider Name:Yaz Hannon Luis E , 12/16/2024 03:30:00 PM, [address] [facility], [place], [address], Insurance Providers Payer Name Payer Address Payer Phone Subscriber Number Group Number Insured Name Patient Relationship to Insured Coverage Start Date Coverage End Date Medicare National [employer] [address] [place] [address] [id number] Bernard Navarro Self - patient is the insured Medical (General) History Medical History History ICD Code type I diabetes - brittle diabetic Hypothyroidism Vitamin D deficiency Down's syndrome depressive disorder Impulse Control disorder Periodontal disease Cholesterol Reflux Hypertension Low kidney function Surgical History Surgery Date(Month/Year) bunionectomy- right foot Tooth extraction x4 06/26/23, 07/10/23 Hospitalization History Reason Date(Month/Year) [facility] Er- Yeast Infection - Diabetic Ketoa cidosis (DKA) 02/15/23 [facility]- elevated sugar 01/2022
--- OUTSIDE RECORDS SUMMARY | 2024-10-27 12:36 | XMS_ITS ---
Author Organization [facility] Address [address] [place] [address] Care Team Providers Care It Investment/Portfolio Manager Name Role Phone Boris Mcgowan Primary Care Provider Yaz Ramirez [phone] REASON FOR VISIT No Show Encounters Encounter Location Date Provider Diagnosis [address] [address] 07/10/2024 Yaz Kimbrough Plan Of Treatment Next Appt Details Provider Name:Yaz Parvez Kimbrough , 12/16/2024 03:30:00 PM, [address] [facility], [place], [address], Progress Notes * Bernard NAVARRODOB:1980 ([age] yo M)Acc No.[id number]:07/10/2024 Patient:?ANGELLA Bernard :1980???Age:43 Y???Sex:Male Address:[address] [place] [address], [address] * true * Date:? Generated for Printi ng/Fayonasg/eTransmitting on:?10/27/2024 12:36 PM EDT
--- OUTSIDE RECORDS SUMMARY | 2024-10-27 12:37 | XMS_ITS ---
Author Organization [facility] Address [address] [place] [address] Care Team Providers Care Clinical Engineering Manager Name Role Phone Boris Mcgowan Primary Care Provider Yaz Ramirez [phone] REASON FOR VISIT Medications Encounters Encounter Location Date Provider Diagnosis [address] [address] 10/03/2024 Yaz Kimbrough Plan Of Treatment Next Appt Details Provider Name:Yaz Parvez Kimbrough , 12/16/2024 03:30:00 PM, [address] [facility], [place], [address], Progress Notes * Bernard NAVARRODOB:1980 ([age] yo M)Acc No.[id number]:10/03/2024 Patient:?ANGELLA Bernard :1980???Age:43 Y???Sex:Male Address:[address] [place] [address], [address] * true * Date:? Generated for Printi ng/Faxing/eTransmitting on:?10/27/2024 12:36 PM EDT
[2024-10-27] MEDS: Acetaminophen 1,000 MG/100 ML PIGGYBACK 400 MG IV (14:16)
[2024-10-27] MEDS: Lactated Ringers 1,000 ML 80 ML IVCONT (14:17)
[2024-10-27 14:44] LABS: Troponin-I High Sensitivity 8.9 ng/L (<3.5-35.0)
[2024-10-27 15:36] LABS: Appearance Urine Clear; Color Urine Yellow; Glucose Urine UA Negative (Negative); Leukocyte Esterase Urine Negative (Negative); Nitrite Urine Negative (Negative); UMIC TRIGGER UACC YES; Urine Blood Trace (Negative); Urine Ketones Negative (Negative); Urine Protein >=1000 (4+) mg/dL (Neg-Trace)
[2024-10-27 15:39] LABS: Bacteria Urine None Seen (None Seen); RBC Urine 0-2 /HPF (0-2); Squamous Epithelial Cell Urine 0-2 /HPF (0-2); WBC Urine 0-5 /HPF (0-5)
--- NOTE | 2024-10-27 15:49 | PM.IMHP ---
History of Present Illness Date of Service: 10/27/24 Chief Complaint: abd pain 43yo M with Down's syndrome, resident of a intermediate, with PMHx of DM1, hypothyroidism, BPH, HTN, mood disorder, GERD, HLD, CKD, and IPF presenting with 1-day history of severe abdominal pain to the point where he was crying, hitting himself, throwing himself on the ground, and trying to scratch his abdomen. No nausea or vomiting. No diarrhea or constipation. Recently seen by [facility] 10[place]23 and started on doxycycline for prostatitis. In the ED, he had a CT of the abdomen showing edema and inflammatory stranding consistent with pancreatitis despite normal seruml lipase. No history of gallstones and he does not drink EtOH. No prior history of pancreatitis though it is notable that he is prescribed pancreatic enzyme replacement. Review of Systems Review of Systems: Yes all other systems are reviewed and are negative PMFSH Medical History Cellulitis Constipation Ascites Pericardial effusion Urethral meatal stenosis Mental and behavioral problem Renal insufficiency Hypercholesterolemia Down syndrome GERD (gastroesophageal reflux disease) BPH (benign prostatic hyperplasia) Hypothyroid Anxiety and depression Pseudoseizures Diabetes mellitus type 1 Family History Father Medical history unknown Mother Medical history unknown Maternal Grandfather Prostate cancer Surgical History Hx of cataract surgery Social History Household Members: Other Household Members Other:: intermediate Housing: Other Housing Other:: intermediate Do you presently have visiting nurse or other home services: No Unable to assess alcohol history related to: Unable to respond Alcohol intake: never Comment: 1:1 Sitter Patient Tobacco Use Status: Never used Tobacco e-Cigarette/Vaping Use: Never Used Second Hand Smoke Exposure: No service: No Current occupational status: disabled Cognitive needs: No Hearing needs: No Vision needs: No Meds Allergies Allergy/AdvReac Type Severity Reaction Status Date / Time Sulfa (Sulfonamide Allergy Intermediate ITCHING Verified 10/27/24 09:50 Antibiotics) [SULFA(SULFONAMIDE ANTIBIOTICS)] doxycycline AdvReac Intermediate Pancreatiti Verified 10/30/24 20:12 s Active Medications: Current Medications Acetaminophen (Acetaminophen 325 Mg Tablet) 650 mg PO Q6H PRN PRN Reason: Pain, Mild 1-3,fever,headache Calcium Carbonate (Calcium Carbonate 750 Mg Tab.Chew) 750 mg PO Q4H PRN PRN Reason: Heartburn Dextrose (Dextrose 50 % 25 Gm/50 Ml Syringe) 25 gm IVPUSH Q15M PRN; Protocol PRN Reason: per Hypoglycemia Standing Ord. Enoxaparin Sodium (Enoxaparin Sodium 40 Mg/0.4 Ml Syringe) 40 mg SUBCUT Q24H LINDA Glucose (Glucose Gel 15 Gm Gel..Gram.) 15 gm PO Q15M PRN; Protocol PRN Reason: per Hypoglycemia Standing Ord. Lactated Ringer's (Lr) 1,000 mls @ 80 mls/hr IVCONT .[id number] [facility] Last Admin: 10/27/24 14:17 Dose: 80 mls/hr Insulin Human Lispro (Insulin Lispro 100 Unit/Ml 3 Ml Vial) 0 unit SUBCUT QIDACHS [facility]; Protocol Levofloxacin (Levofloxacin 750 Mg Tablet) 750 mg PO Q48H [facility] Lorazepam (Lorazepam 0.5 Mg Tablet) 0.5 mg PO ONCE PRN PRN Reason: Anxiety Last Admin: 10/27/24 12:27 Dose: 0.5 mg Magnesium Hydroxide (Milk Of Magnesia 30 Ml Oral.Susp) 30 ml PO DAILY PRN PRN Reason: Constipation Melatonin (Melatonin 3 Mg Tablet) 6 mg PO BEDTIME PRN PRN Reason: Insomnia Ondansetron HCl (Ondansetron Hcl 4 Mg/2 Ml Vial) 4 mg IVPUSH Q4H PRN PRN Reason: Nausea and Vomiting Sodium Chloride (0.9 % Sodium Chloride Flush 3 Ml Syringe) 3 ml IVFLUSH QSHIFT [facility] Home Medications ?Medication ?Instructions ?Recorded ?Confirmed ?Last Taken ?Type insulin lispro 100 unit/mL 1 sliding scale dose subcut TIDAC 02/10/23 10/31/24 Unknown History subcutaneous pen (Humalog KwikPen (U-100) Insulin) zinc oxide-cod liver oil 40 % 1 appl topical DAILY 02/10/23 10/31/24 Unknown History topical paste (Desitin) ciclopirox 0.77 % topical cream 1 appl topical BID Foot Fungus 03/06/23 10/31/24 Unknown History citalopram 20 mg tablet 20 mg PO DAILY 11/22/23 10/31/24 Unknown History insulin glargine 100 unit/mL (3 13 unit subcut DAILY@1700 03/07/24 10/31/24 Unknown History mL) subcutaneous pen (Lantus Solostar U-100 Insulin) blood sugar diagnostic (FreeStyle #10 ea 04/22/24 10/31/24 Unknown History Lite Strips) pen needle, diabetic, safety 32 #100 ea 04/22/24 10/31/24 Unknown History gauge x 5 (True Comfort Safety Pen Needle) diclofenac sodium 1 % topical gel 4 g topical Q6H PRN Foot Pain 04/24/24 10/31/24 Unknown History pen needle, diabetic 33 gauge x #100 ea 07/25/24 10/31/24 Unknown History (Comfort EZ Pen Cuney) azithromycin 250 mg tablet 250 mg PO MOWEFR@199910/27/24 10/31/24 Unknown History cetirizine 10 mg tablet 10 mg PO DAILY allergy symptoms 10/27/24 10/31/24 Unknown History cholecalciferol (vitamin D3) 25 25 mcg PO DAILY 10/27/24 10/31/24 Unknown History mcg (1,000 unit) tablet (Vitamin D3) dextromethorphan polistirex 30 10 ml PO BEDTIME PRN cough 10/27/24 10/31/24 Unknown History mg/5 mL oral susp ext.release 12hr (Delsym 12 hour) ferrous sulfate 325 mg (65 mg 325 mg PO DAILY@1600 10/27/24 10/31/24 Unknown History iron) tablet,delayed release glucose 4 gram chewable tablet 16 g PO Q15M PRN Hypoglycemia 10/27/24 10/31/24 Unknown History levothyroxine 112 mcg tablet 112 mcg PO DAILY@0600 10/27/24 10/31/24 Unknown History metoprolol succinate 25 mg 25 mg PO BEDTIME 10/27/24 10/31/24 Unknown History tablet,extended release 24 hr omeprazole 20 mg capsule,delayed 20 mg PO DAILY@0630 10/27/24 10/31/24 Unknown History release peg 400-propylene glycol (PF) 0.4 1 drp ophthalmic (eye) QID PRN Dry 10/27/24 10/31/24 Unknown History %-0.3 % eye drops in a dropperette Eye(S) (Systane (PF)) sodium zirconium cyclosilicate 5 5 g PO MOWEFR 10/27/24 10/31/24 Unknown History gram oral powder packet (Lokelma) Physical Exam Vital Signs and Narrative: Vital Signs: Last Vital Signs Temp 97.8 F 10/27/24 15:30 Pulse 61 10/27/24 15:30 Resp 16 10/27/24 15:30 BP 172/66 H 10/27/24 15:30 Pulse Ox 100 10/27/24 15:30 O2 Del Method Room Air 10/27/24 09:48 BMI result Body Mass Index 32.5 Gen: in no acute distress, Downs syndrome features HEENT: sclera anicteric, moist mucus membranes Neck: supple Lungs: clear to auscultation bilaterally Heart: regular rate and rhythm, no murmurs Abd: soft, tender around umbilicus, non-distended Ext: no edema Skin: warm/well-perfused Neuro: alert and oriented x3, no focal findings Psych: appropriate affect Results Labs 10/29/24 06:15 10/29/24 14:04 Labs: Laboratory Results - last 24 hr 10/27/24 10/27/24 10/27/24 09:51 10:18 10:44 MCV 90.6 MCH 30.9 MCHC 34.1 RDW 14.4 Plt Count 387 MPV 9.3 L Immature Gran % (Auto) 0.3 Neut % (Auto) 72.6 Lymph % (Auto) 13.4 L [place] % (Auto) 7.0 Eos % (Auto) 5.4 H Baso % (Auto) 1.3 Lymph # (Auto) 0.8 L [place] # (Auto) 0.4 Eos # (Auto) 0.3 Baso # (Auto) 0.1 Abs Immat Gran (auto) 0.02 Absolute Neuts (auto) 4.5 Absolute Nucleated RBC 0.000 Nucleated RBC % (auto) 0.0 D-Dimer High Sensitivty 356 Anion Gap 9 L Estim Creat Clear Calc 35.3 Estimated GFR 36 POC Glucose 63 Random Glucose 58 L* Lactic Acid 0.6 Calcium 8.3 L Magnesium 1.9 Total Bilirubin 0.1 Direct Bilirubin < 0.2 AST 28 ALT 20 Alkaline Phosphatase 83 Lactate Dehydrogenase 217 B-Natriuretic Peptide 61 Total Protein 5.4 L Albumin 2.3 L Triglycerides 192 H Lipase 8 Urine Color Urine Appearance Urine pH Ur Specific [place] Urine Protein Urine Glucose (UA) Urine Ketones Urine Blood Urine Nitrite Ur Leukocyte Esterase Urine RBC Urine WBC Ur Squamous Epith Cells Urine Bacteria Hyaline Casts Influenza Type A (PCR) NEGATIVE Influenza Type B (PCR) NEGATIVE RSV RNA Qual (PCR) NEGATIVE SARS-CoV-2 RNA (RT-PCR) NEGATIVE 10/27/24 10/27/24 10:48 15:27 MCV MCH MCHC RDW Plt Count MPV Immature Gran % (Auto) Neut % (Auto) Lymph % (Auto) [place] % (Auto) Eos % (Auto) Baso % (Auto) Lymph # (Auto) [place] # (Auto) Eos # (Auto) Baso # (Auto) Abs Immat Gran (auto) Absolute Neuts (auto) Absolute Nucleated RBC Nucleated RBC % (auto) D-Dimer High Sensitivty Anion Gap Estim Creat Clear Calc Estimated GFR POC Glucose 124 H Random Glucose Lactic Acid Calcium Magnesium Total Bilirubin Direct Bilirubin AST ALT Alkaline Phosphatase Lactate Dehydrogenase B-Natriuretic Peptide Total Protein Albumin Triglycerides Lipase Urine Color Yellow Urine Appearance Clear Urine pH 6.0 Ur Specific [place] 1.020 Urine Protein >=1000 (4+) H Urine Glucose (UA) Negative Urine Ketones Negative Urine Blood Trace H Urine Nitrite Negative Ur Leukocyte Esterase Negative Urine RBC 0-2 Urine WBC 0-5 Ur Squamous Epith Cells 0-2 Urine Bacteria None Seen Hyaline Casts 3-5 Influenza Type A (PCR) Influenza Type B (PCR) RSV RNA Qual (PCR) SARS-CoV-2 RNA (RT-PCR) Imaging Radiologist's Impressions: Impressions Abdomen/Pelvis CT 10/27/24 10:02 IMPRESSION: Findings consistent with acute pancreatitis as described. Electronically signed by: Rhys Chambers MD 10/27/2024 11:18 AM EDT RP Chest X-Ray 10/27/24 11:13 IMPRESSION: Mild interstitial lung edema in the correct clinical settings. Cardiogenic versus nephrogenic. Electronically signed by: Donny Pritchard MD 10/27/2024 11:24 AM EDT RP Pulmonary Perfusion Imaging 10/27/24 11:13 IMPRESSION: No perfusion defects. Normal exam. Electronically signed by: Juan Wood MD 10/27/2024 01:48 PM EDT RP Assessment and Plan (1) Acute pancreatitis: Status: Acute Plan 43yo M with Down's syndrome, resident of a intermediate, with PMHx of DM1, hypothyroidism, HTN, BPH, mood disorder, GERD, HLD, CKD, and IPF presenting with acute abdominal pain and found to have acute pancreatitis possibly related to doxycycline. acute pancreatitis - admit to Med/Surg, bowel rest/NPO, isotonic IV fluids, GI consult, US to r/o gallstones, avoid doxycycline for now [class 3 medication for pancreatitis = Low-quality evidence for causation of acute pancreatitis: High-quality case reports] prostatitis - recently diagnosed by urologist; send UCx + urine GC/CT and give levofloxacin renally dosed CKD3 - SCr near baseline DM1 with hypoglycemia - D50 for hypoglycemia [if recurrent, add D5 to isotonic fluids], correction-dose lispro; hold glargine for now HTN - amlodipine, metoprolol succinate mood disorder - citalopram, lorazepam hypothyroidism - continue LT4 GERD - PPI BPH - tamsulosin VTE ppx - enoxaparin dispo - intermediate code status - full I anticipate that the patient will stay at least 2 midnights as an inpatient in the hospital due to the above reasons. It is neither reasonable nor safe to care for them in a less acute setting. Quality Stroke Does the patient have a stroke diagnosis?: No VTE Prior VTE?: No VTE Risk Level:: Medical - moderate - high VTE Device Contraindication: N/A - Device Ordered VTE Drug Contraindication: N/A - Med Ordered
--- NOTE | 2024-10-27 16:10 | PC.NURSE ---
Pt ambulating to/from BR with staff member for safety; steady gait; pt resting quietly in room with senior living staff member present and pt appears in no acute distress at this time; Nicole ([facility] senior living administrative and program specialist) states that hospital staff can reach out to her if there are any questions/concerns: [phone]
[2024-10-27 16:23] LABS: Glucose, Whole Blood 106 mg/dL (60-115)
--- NOTE | 2024-10-27 16:39 | PHA.MEDREC ---
Addendum entered by Krystal Miller RPh 10/27/24 17:25: Reviewed by pharmacist Original Note: Pharmacy Consult ? Medication Reconciliation Pharmacy has completed the medication reconciliation. Utilized list from [facility]
[2024-10-27 16:45] LABS: Amylase 18 U/L (28-100)
[2024-10-27 16:59] LABS: Glucose, Whole Blood 99 mg/dL (60-115)
[2024-10-27 17:23] LABS: Glucose, Whole Blood 86 mg/dL (60-115)
[2024-10-27] MEDS: Enoxaparin Sodium 40 MG/0.4 ML SYRINGE SUBCUT (17:28)
[2024-10-27] MEDS: levoFLOXacin 750 MG TABLET PO (17:28)
[2024-10-27] MEDS: 0.9 % Sodium Chloride Flush 3 ML SYRINGE IVFLUSH (17:36)
[2024-10-27] MEDS: Sodium Zirconium Cyclosilicate 5 GM POWD.PACK PO (18:07)
[2024-10-27] MEDS: bisacodyL 5 MG TABLET.DR 10 MG PO (20:13)
[2024-10-27] MEDS: Metoprolol Succinate ER 25 MG TAB.ER.24H PO (20:13)
[2024-10-27] MEDS: Famotidine 20 MG TABLET PO (20:13)
[2024-10-27] MEDS: Azithromycin 250 MG TABLET PO (20:14)
[2024-10-27] MEDS: Lipase/Prot/Amylase 24/76/120K 1 CAP CAPSULE.DR PO (20:14)
[2024-10-27] MEDS: Docusate Sodium 100 MG CAPSULE 200 MG PO (20:14)
[2024-10-27] MEDS: Albuterol/Iprat 2.5/0.5MG 3 ML AMPUL.NEB INHALE (20:19)
[2024-10-27 20:28] LABS: Glucose, Whole Blood 105 mg/dL (60-115)
[2024-10-28] VITALS (7 sets, daily range): BP systolic 114–150; BP diastolic 58–78; PULSE 70–78; RESP 18; TEMP 36.6–37; O2SAT 95–100
[2024-10-28] MEDS: Melatonin 3 MG TABLET 6 MG PO (00:43)
[2024-10-28] MEDS: Acetaminophen 325 MG TABLET 650 MG PO ×2 (00:43→07:47)
[2024-10-28] MEDS: Benzonatate 100 MG CAPSULE PO (01:41)
[2024-10-28] MEDS: Lactated Ringers 1,000 ML 80 ML IVCONT ×2 (04:14→16:34)
[2024-10-28] MEDS: Levothyroxine Sodium 112 MCG TABLET PO (05:06)
[2024-10-28] MEDS: Omeprazole 20 MG CAPSULE.DR PO (05:06)
[2024-10-28 06:20] LABS: Hematocrit 34.6 % (42.0-52.0); Hemoglobin 11.6 g/dl (14.0-18.0); Mean Corpuscular HGB Conc 33.5 g/dl (31.0-36.0); Mean Corpuscular Hemoglobin 30.4 pg (27.0-33.0); Mean Corpuscular Volume 90.8 fL (80.0-98.0); Mean Platelet Volume 9.6 fL (9.4-12.4); Platelet Count 361 X10*3/uL (160-400); Red Blood Count 3.81 X10*6/uL (4.60-5.80); Red Cell Distribution Width 14.3 % (11.0-16.0); White Blood Count 11.6 X10*3/uL (4.8-10.8)
[2024-10-28 06:32] LABS: Alanine Aminotransferase 16 U/L (0-40); Albumin Level 2.1 g/dL (3.5-5.0); Alkaline Phosphatase 87 U/L (39-117); Anion Gap 13 (12-20); Aspartate Amino Transferase 35 U/L (5-37); Bilirubin Total 0.2 mg/dL (0.0-1.0); Blood Urea Nitrogen 41 mg/dL (9-16); Carbon Dioxide 22 mmol/L (22-29); Chloride 104 mmol/L (96-108); Estimated Glomerular Filt Rate 33; Glucose Random 248 mg/dL (60-115); Sodium 134 mmol/L (135-145)
[2024-10-28 07:39] LABS: Glucose, Whole Blood 246 mg/dL (60-115)
[2024-10-28 07:39] LABS: Glucose, Whole Blood 259 mg/dL (60-115)
[2024-10-28] MEDS: Albuterol/Iprat 2.5/0.5MG 3 ML AMPUL.NEB INHALE ×2 (07:40→19:39)
[2024-10-28] MEDS: Insulin Lispro 100 UNIT/ML 3 ML VIAL SUBCUT ×3 (07:45→21:01)
[2024-10-28] MEDS: Aspirin Enteric Coated 81 MG TABLET.DR PO (07:46)
[2024-10-28] MEDS: Cholecalciferol (Vitamin D3) 25 MCG TABLET PO (07:46)
[2024-10-28] MEDS: Ascorbic Acid 500 MG TABLET PO (07:46)
[2024-10-28] MEDS: Atorvastatin Calcium 10 MG TABLET PO (07:46)
[2024-10-28] MEDS: Folic Acid 1 MG TABLET PO (07:47)
[2024-10-28] MEDS: Escitalopram Oxalate 10 MG TABLET PO (07:47)
[2024-10-28] MEDS: Loratadine 10 MG TABLET PO (07:47)
[2024-10-28] MEDS: Lipase/Prot/Amylase 24/76/120K 1 CAP CAPSULE.DR PO ×4 (07:47→21:01)
[2024-10-28] MEDS: amLODIPine Besylate 5 MG TABLET PO (07:47)
--- NOTE | 2024-10-28 07:57 | P.CNGI_ITS ---
History of Present Illness Data of Consult Service Date: 10/28/24 Requesting physician: Fanny Murillo Primary Care Provider: Boris Mcgowan MD HPI Reason for consult: Acute pancreatitis 43yo M with Down's syndrome, resident of a longterm, with PMHx of DM1, hypothyroidism, BPH, HTN, mood disorder, GERD, HLD, CKD, and IPF who presented to the hospital yest for sudden onset of severe abdominal pain to the point where he was crying, hitting himself, throwing himself on the ground, and trying to scratch his abdomen. No nausea or vomiting. No diarrhea or constipation. In the ED, he had a CT of the abdomen showing edema and inflammatory stranding consistent with pancreatitis despite normal seruml lipase. No history of gallstones and he does not drink EtOH. No prior history of pancreatitis. Pt seen in the presence of longterm hop picker. Reports improvement in abdominal pain. Tolerable. Able to move her out easily. Still does not have an appetite however. Review of Systems 2 Review of Systems: Yes all other systems are reviewed and are negative PMFSH Past Medical History Medical History Cellulitis Constipation Ascites Pericardial effusion Urethral meatal stenosis Mental and behavioral problem Renal insufficiency Hypercholesterolemia Down syndrome GERD (gastroesophageal reflux disease) BPH (benign prostatic hyperplasia) Hypothyroid Anxiety and depression Pseudoseizures Diabetes mellitus type 1 Family History Family History Father Medical history unknown Mother Medical history unknown Maternal Grandfather Prostate cancer Surgical History Surgical History Hx of cataract surgery Social History Social History Household Members: Other Household Members Other:: longterm Housing: Other Housing Other:: longterm Do you presently have visiting nurse or other home services: No Unable to assess alcohol history related to: Unable to respond Alcohol intake: never Comment: 1:1 Sitter Patient Tobacco Use Status: Never used Tobacco e-Cigarette/Vaping Use: Never Used Second Hand Smoke Exposure: No service: No Current occupational status: disabled Cognitive needs: No Hearing needs: No Vision needs: No Meds Allergies Allergy/AdvReac Type Severity Reaction Status Date / Time Sulfa (Sulfonamide Allergy Intermediate ITCHING Verified 10/27/24 09:50 Antibiotics) [SULFA(SULFONAMIDE ANTIBIOTICS)] Active Medications: Current Medications Acetaminophen (Acetaminophen 325 Mg Tablet) 650 mg PO Q6H PRN PRN Reason: Pain, Mild 1-3,fever,headache Last Admin: 10/28/24 07:47 Dose: 650 mg Albuterol/Ipratropium (Albuterol/Iprat 2.5/0.5mg 3 Ml Ampul.Neb) 3 ml INHALE RBID [facility] Last Admin: 10/28/24 07:40 Dose: 3 ml Amlodipine Besylate (Amlodipine Besylate 5 Mg Tablet) 5 mg PO DAILY [facility]; Protocol Last Admin: 10/28/24 07:47 Dose: 5 mg Lipase/Protease/Amylase (Lipase/Prot/Amylase 24/76/120k 1 Cap Capsule.) 1 cap PO QID [facility] Last Admin: 10/28/24 07:47 Dose: 1 cap Ascorbic Acid (Ascorbic Acid 500 Mg Tablet) 500 mg PO DAILY [facility] Last Admin: 10/28/24 07:46 Dose: 500 mg Aspirin (Aspirin Enteric Coated 81 Mg Tablet.) 81 mg PO DAILY [facility] Last Admin: 10/28/24 07:46 Dose: 81 mg Atorvastatin Calcium (Atorvastatin Calcium 10 Mg Tablet) 10 mg PO DAILY [facility] Last Admin: 10/28/24 07:46 Dose: 10 mg Azithromycin (Azithromycin 250 Mg Tablet) 250 mg PO MOWEFR@2000 [facility] Last Admin: 10/27/24 20:14 Dose: 250 mg Benzonatate (Benzonatate 100 Mg Capsule) 100 mg PO TID PRN PRN Reason: Cough Last Admin: 10/28/24 01:41 Dose: 100 mg Bisacodyl (Bisacodyl 5 Mg Tablet.) 10 mg PO BEDTIME [facility] Last Admin: 10/27/24 20:13 Dose: 10 mg Bisacodyl (Bisacodyl 10 Mg Supp.Rect) 10 mg MI DAILY PRN PRN Reason: constipation Calcium Carbonate (Calcium Carbonate 750 Mg Tab.Chew) 750 mg PO Q4H PRN PRN Reason: Heartburn Dextrose (Dextrose 50 % 25 Gm/50 Ml Syringe) 25 gm IVPUSH Q15M PRN; Protocol PRN Reason: per Hypoglycemia Standing Ord. Docusate Sodium (Docusate Sodium 100 Mg Capsule) 200 mg PO BEDTIME [facility] Last Admin: 10/27/24 20:14 Dose: 200 mg Enoxaparin Sodium (Enoxaparin Sodium 40 Mg/0.4 Ml Syringe) 40 mg SUBCUT Q24H [facility] Last Admin: 10/27/24 17:28 Dose: 40 mg Escitalopram Oxalate (Escitalopram Oxalate 10 Mg Tablet) 10 mg PO DAILY [facility] Last Admin: 10/28/24 07:47 Dose: 10 mg Famotidine (Famotidine 20 Mg Tablet) 20 mg PO BEDTIME [facility] Last Admin: 10/27/24 20:13 Dose: 20 mg Ferrous Sulfate (Ferrous Sulfate 324 Mg Tablet.Dr) 324 mg PO DAILY@1600 [facility] Folic Acid (Folic Acid 1 Mg Tablet) 1 mg PO DAILY [facility] Last Admin: 10/28/24 07:47 Dose: 1 mg Glucose (Glucose Gel 15 Gm Gel..Gram.) 15 gm PO Q15M PRN; Protocol PRN Reason: per Hypoglycemia Standing Ord. Lactated Ringer's (Lr) 1,000 mls @ 80 mls/hr IVCONT .[id number] [facility] Last Admin: 10/28/24 04:14 Dose: 80 mls/hr Insulin Human Lispro (Insulin Lispro 100 Unit/Ml 3 Ml Vial) 0 unit SUBCUT QIDACHS [facility]; Protocol Last Admin: 10/28/24 07:45 Dose: 4 unit Levofloxacin (Levofloxacin 750 Mg Tablet) 750 mg PO Q48H [facility] Last Admin: 10/27/24 17:28 Dose: 750 mg Levothyroxine Sodium (Levothyroxine Sodium 112 Mcg Tablet) 112 mcg PO DAILY@0600 [facility] Last Admin: 10/28/24 05:06 Dose: 112 mcg Loratadine (Loratadine 10 Mg Tablet) 10 mg PO DAILY [facility] Last Admin: 10/28/24 07:47 Dose: 10 mg Lorazepam (Lorazepam 0.5 Mg Tablet) 0.5 mg PO ONCE PRN PRN Reason: Anxiety Last Admin: 10/27/24 12:27 Dose: 0.5 mg Magnesium Hydroxide (Milk Of Magnesia 30 Ml Oral.Susp) 30 ml PO DAILY PRN PRN Reason: Constipation Melatonin (Melatonin 3 Mg Tablet) 6 mg PO BEDTIME PRN PRN Reason: Insomnia Last Admin: 10/28/24 00:43 Dose: 6 mg Metoprolol Succinate (Metoprolol Succinate Er 25 Mg Tab.Er.24h) 25 mg PO BEDTIME [facility]; Protocol Last Admin: 10/27/24 20:13 Dose: 25 mg Nystatin (Nystatin Powder 15 Gm Bottle) 1 appl TOPICAL BID PRN; Protocol PRN Reason: groin rash Omeprazole (Omeprazole 20 Mg Capsule.Dr) 20 mg PO DAILY@0630 [facility] Last Admin: 10/28/24 05:06 Dose: 20 mg Ondansetron HCl (Ondansetron Hcl 4 Mg/2 Ml Vial) 4 mg IVPUSH Q4H PRN PRN Reason: Nausea and Vomiting Polyethylene Glycol (Polyethylene Glycol 3350 17 Gm Powd.Pack) 17 gm PO DAILY [facility] Last Admin: 10/28/24 07:48 Dose: Not Given Sodium Chloride (0.9 % Sodium Chloride Flush 3 Ml Syringe) 3 ml IVFLUSH QSHIFT [facility] Last Admin: 10/28/24 07:09 Dose: Not Given Sodium Zirconium Cyclosilicate (Sodium Zirconium Cyclosilicate 5 Gm Powd.Pack) 5 gm PO MOWEFR [facility] Last Admin: 10/27/24 18:07 Dose: 5 gm Tamsulosin HCl (Tamsulosin Hcl 0.4 Mg Capsule) 0.8 mg PO DAILY@1700 [facility] Vitamin D (Cholecalciferol (Vitamin D3) 25 Mcg Tablet) 25 mcg PO DAILY [facility] Last Admin: 10/28/24 07:46 Dose: 25 mcg Home Medications ?Medication ?Instructions ?Recorded ?Confirmed ?Last Taken ?Type insulin lispro 100 unit/mL 1 sliding scale dose subcut TIDAC 02/10/23 10/27/24 Unknown History subcutaneous pen (Humalog KwikPen (U-100) Insulin) zinc oxide-cod liver oil 40 % 1 appl topical DAILY 02/10/23 10/27/24 Unknown History topical paste (Desitin) ciclopirox 0.77 % topical cream 1 appl topical BID Foot Fungus 03/06/23 10/27/24 Unknown History citalopram 20 mg tablet 20 mg PO DAILY 11/22/23 10/27/24 Unknown History insulin glargine 100 unit/mL (3 13 unit subcut DAILY@1700 03/07/24 10/27/24 Unknown History mL) subcutaneous pen (Lantus Solostar U-100 Insulin) blood sugar diagnostic (FreeStyle #10 ea 04/22/24 10/23/24 Unknown History Lite Strips) pen needle, diabetic, safety 32 #100 ea 04/22/24 10/23/24 Unknown History gauge x (True Comfort Safety Pen Needle) diclofenac sodium 1 % topical gel 4 g topical Q6H PRN Foot Pain 04/24/24 10/27/24 Unknown History pen needle, diabetic 33 gauge x #100 ea 07/25/24 10/23/24 Unknown History (Comfort EZ Pen [place]) azithromycin 250 mg tablet 250 mg PO MOWEFR@199910/27/24 10/27/24 Unknown History cetirizine 10 mg tablet 10 mg PO DAILY allergy symptoms 10/27/24 10/27/24 Unknown History cholecalciferol (vitamin D3) 25 25 mcg PO DAILY 10/27/24 10/27/24 Unknown History mcg (1,000 unit) tablet (Vitamin D3) dextromethorphan polistirex 30 10 ml PO BEDTIME PRN cough 10/27/24 10/27/24 Unknown History mg/5 mL oral susp ext.release 12hr (Delsym 12 hour) ferrous sulfate 325 mg (65 mg 325 mg PO DAILY@1600 10/27/24 10/27/24 Unknown History iron) tablet,delayed release glucose 4 gram chewable tablet 16 g PO Q15M PRN Hypoglycemia 10/27/24 10/27/24 Unknown History levothyroxine 112 mcg tablet 112 mcg PO DAILY@0600 10/27/24 10/27/24 Unknown History metoprolol succinate 25 mg 25 mg PO BEDTIME 10/27/24 10/27/24 Unknown History tablet,extended release 24 hr omeprazole 20 mg capsule,delayed 20 mg PO DAILY@0630 10/27/24 10/27/24 Unknown History release peg 400-propylene glycol (PF) 0.4 1 drp ophthalmic (eye) QID PRN Dry 10/27/24 10/27/24 Unknown History %-0.3 % eye drops in a dropperette Eye(S) (Systane (PF)) sodium zirconium cyclosilicate 5 5 g PO MOWEFR 10/27/24 10/27/24 Unknown History gram oral powder packet (Lokelma) Physical Exam 2 Vital Signs: Vital Signs: Last Vital Signs Temp 97.9 F 10/28/24 07:20 Pulse 78 10/28/24 07:43 Resp 18 10/28/24 07:43 BP 150/65 H 10/28/24 07:47 Pulse Ox 98 10/28/24 07:20 O2 Del Method Room Air 10/28/24 07:20 BMI result Body Mass Index 29.1 Syndromic facies No apparent distress Nonicteric Abdomen soft, nondistended, mildly tender to palpation in epigastrium with guarding Alert and oriented x3, able to provide most of the history Results Labs 10/28/24 05:54 10/28/24 05:54 Labs: Short CBC 10/27/24 10/28/24 Range/Units 10:18 05:54 WBC 6.3 11.6 H (4.8-10.8) X10*3/uL Hgb 11.9 L 11.6 L (14.0-18.0) g/dl Hct 34.9 L 34.6 L (42.0-52.0) % Plt Count 387 361 (160-400) X10*3/uL BMP 10/27/24 10/28/24 10:18 05:54 Sodium 139 134 L Potassium 5.3 H 5.0 Chloride 109 H 104 Carbon Dioxide 26 22 BUN 45 H 41 H Creatinine 2.02 H 2.18 H Calcium 8.3 L 8.0 L Liver Function 10/27/24 10/28/24 Range/Units 10:18 05:54 Total Bilirubin 0.1 0.2 (0.0-1.0) mg/dL Direct Bilirubin < 0.2 (0.0-0.5) mg/dL AST 28 35 (5-37) U/L ALT 20 16 (0-40) U/L Alkaline Phosphatase 83 87 (39-117) U/L Albumin 2.3 L 2.1 L (3.5-5.0) g/dL Urine 10/27/24 Range/Units 15:27 Urine Color Yellow Urine Appearance Clear Urine pH 6.0 (5.0-9.0) Ur Specific [place] 1.020 (1.005-1.025) Urine Protein >=1000 (4+) H (Neg-Trace) mg/dL Urine Glucose (UA) Negative (Negative) mg/dL Imaging US - abdomen: Radiologist's impression: No findings of cholecystitis, cholelithiasis, choledocholithiasis, or biliary ductal dilatation. Peripancreatic fluid and fat stranding consistent with pancreatitis. Assessment and Plan (1) Abdominal pain: Qualifiers: Abdominal location: generalized Qualified Code(s): R10.84 - Generalized abdominal pain Status: Acute (2) Pancreatitis: Qualifiers: Acute pancreatitis complication: unspecified Chronicity: acute P ancreatitis type: unspecified pancreatitis type Qualified Code(s): K85.90 - Acute pancreatitis without necrosis or infection, unspecified Status: Acute (3) JOSE (acute kidney injury): Status: Acute Plan Overall presentation consistent with acute interstitial pancreatitis. Since has known hx of T1DM with burnt out pancreas not surprising to see a normal lipase level. Likely etiology appears to be drug related however given age will need to have anatomical abnl ruled out with interval imaging in 4-6 weeks. Plan: - IVF - has worsening renal function today. Recommend 1L bolus of LR followed by 2cc/kg/hr of infusion today, discontinue tmrw AM. - OK for NPO today. Trial clears tmrw - Monitor I & O for adequate hydration status - Glycemic control to avoid local infectious complications - Outpatient MRI pancreas protocol in 4-6 weeks - repeat MRI in during AIP and pancreatic edema may not be of high yield to r/o panc divisum, panc cyst etc. Thank you for allowing me to participate in his care. Please do not hesitate to reach out for any questions or concerns. Procedures Date of Service Date of Service: 10/28/24
[2024-10-28 11:39] LABS: Glucose, Whole Blood 113 mg/dL (60-115)
--- NOTE | 2024-10-28 15:07 | MHC.CM.PN ---
CM assessment completed w/ guardian via telephone and shelter recycling program manager Ellen @ bedside. Mother Gina is guardian. Copy requested from shelter. IMM delivered. Patient lives in [facility] shelter. Independent w/ care. Requires verbal cues at time. Active w/ [facility] for SN - insulin administration 2-3x/day[facility] PCP Boris Mcgowan. DP: Return to shelter, resume day program and VNA services. shelter staff to transport. CM will continue to follow. Phone #'s: Ellen (recycling program manager) [phone] House slot machine key person phone [phone] Gina (mother/guardian) [phone]
--- NOTE | 2024-10-28 15:08 | HO.PM.IMPN ---
Subjective Subjective Date of Service: 10/28/24 Interval History: seen and evaluated this morning feels better no nausea or vomiting no other events Review of Systems Review of Systems: Yes all other systems are reviewed and are negative Physical Exam Vital Signs: Vital Signs: Last Vital Signs Temp 97.9 F 10/28/24 07:20 Pulse 78 10/28/24 07:43 Resp 18 10/28/24 07:43 BP 150/65 H 10/28/24 07:47 Pulse Ox 98 10/28/24 07:20 O2 Del Method Room Air 10/28/24 07:20 BMI result Body Mass Index 29.1 Const: Other: Constitutional : Awake, interactive, not in distress Neck : Normal inspection, Supple Cardiovascular : RRR, no JVP, no lower extremity edema Respiratory : good bilateral air entry, no crackles, wheezes or rhonchi Gastrointestinal: soft, lax, Normal bowel sounds, mild epigastric tenderness Skin : Warm, Dry Neurological : Alert & oriented x3, No focal deficit Objective Data Active Medications Acetaminophen (Acetaminophen 325 Mg Tablet) 650 mg PO Q6H PRN PRN Reason: Pain, Mild 1-3,fever,headache Last Admin: 10/28/24 07:47 Dose: 650 mg Documented By: RICHA Albuterol/Ipratropium (Albuterol/Iprat 2.5/0.5mg 3 Ml Ampul.Neb) 3 ml INHALE RBID [facility] Last Admin: 10/28/24 07:40 Dose: 3 ml Documented By: RAHEEM Amlodipine Besylate (Amlodipine Besylate 5 Mg Tablet) 5 mg PO DAILY [facility]; Protocol Last Admin: 10/28/24 07:47 Dose: 5 mg Documented By: RICHA Lipase/Protease/Amylase (Lipase/Prot/Amylase 24/76/120k 1 Cap Capsule.) 1 cap PO QID [facility] Last Admin: 10/28/24 12:49 Dose: 1 cap Documented By: RICHA Ascorbic Acid (Ascorbic Acid 500 Mg Tablet) 500 mg PO DAILY [facility] Last Admin: 10/28/24 07:46 Dose: 500 mg Documented By: RICHA Aspirin (Aspirin Enteric Coated 81 Mg Tablet.) 81 mg PO DAILY [facility] Last Admin: 10/28/24 07:46 Dose: 81 mg Documented By: RICHA Atorvastatin Calcium (Atorvastatin Calcium 10 Mg Tablet) 10 mg PO DAILY [facility] Last Admin: 10/28/24 07:46 Dose: 10 mg Documented By: RICHA Azithromycin (Azithromycin 250 Mg Tablet) 250 mg PO MOWEFR@2000 [facility] Last Admin: 10/27/24 20:14 Dose: 250 mg Documented By: EUGENE Benzonatate (Benzonatate 100 Mg Capsule) 100 mg PO TID PRN PRN Reason: Cough Last Admin: 10/28/24 01:41 Dose: 100 mg Documented By: EUGENE Bisacodyl (Bisacodyl 5 Mg Tablet.) 10 mg PO BEDTIME [facility] Last Admin: 10/27/24 20:13 Dose: 10 mg Documented By: EUGENE Bisacodyl (Bisacodyl 10 Mg Supp.Rect) 10 mg CO DAILY PRN PRN Reason: constipation Calcium Carbonate (Calcium Carbonate 750 Mg Tab.Chew) 750 mg PO Q4H PRN PRN Reason: Heartburn Dextrose (Dextrose 50 % 25 Gm/50 Ml Syringe) 25 gm IVPUSH Q15M PRN; Protocol PRN Reason: per Hypoglycemia Standing Ord. Docusate Sodium (Docusate Sodium 100 Mg Capsule) 200 mg PO BEDTIME [facility] Last Admin: 10/27/24 20:14 Dose: 200 mg Documented By: EUGENE Enoxaparin Sodium (Enoxaparin Sodium 40 Mg/0.4 Ml Syringe) 40 mg SUBCUT Q24H [facility] Last Admin: 10/27/24 17:28 Dose: 40 mg Documented By: MILEY Escitalopram Oxalate (Escitalopram Oxalate 10 Mg Tablet) 10 mg PO DAILY [facility] Last Admin: 10/28/24 07:47 Dose: 10 mg Documented By: RICHA Famotidine (Famotidine 20 Mg Tablet) 20 mg PO BEDTIME [facility] Last Admin: 10/27/24 20:13 Dose: 20 mg Documented By: EUGENE Ferrous Sulfate (Ferrous Sulfate 324 Mg Tablet.) 324 mg PO DAILY@1600 LINDA Folic Acid (Folic Acid 1 Mg Tablet) 1 mg PO DAILY [facility] Last Admin: 10/28/24 07:47 Dose: 1 mg Documented By: RICHA Glucose (Glucose Gel 15 Gm Gel..Gram.) 15 gm PO Q15M PRN; Protocol PRN Reason: per Hypoglycemia Standing Ord. Lactated Ringer's (Lr) 1,000 mls @ 80 mls/hr IVCONT .[id number] [facility] Last Admin: 10/28/24 14:06 Dose: Not Given Documented By: RICHA Non-Admin Reason: previous IV running Insulin Human Lispro (Insulin Lispro 100 Unit/Ml 3 Ml Vial) 0 unit SUBCUT QIDACHS [facility]; Protocol Last Admin: 10/28/24 11:51 Dose: Not Given Documented By: RICHA Non-Admin Reason: No Insulin Coverage Ketorolac Tromethamine (Ketorolac Tromethamine 15 Mg/Ml Vial) 15 mg IVPUSH Q6H PRN PRN Reason: Pain, Severe (Pain Scale 7-10) Stop: 11/01/24 09:53 Levofloxacin (Levofloxacin 750 Mg Tablet) 750 mg PO Q48H [facility] Last Admin: 10/27/24 17:28 Dose: 750 mg Documented By: MILEY Levothyroxine Sodium (Levothyroxine Sodium 112 Mcg Tablet) 112 mcg PO DAILY@0600 [facility] Last Admin: 10/28/24 05:06 Dose: 112 mcg Documented By: EUGENE Loratadine (Loratadine 10 Mg Tablet) 10 mg PO DAILY [facility] Last Admin: 10/28/24 07:47 Dose: 10 mg Documented By: RICHA Lorazepam (Lorazepam 0.5 Mg Tablet) 0.5 mg PO ONCE PRN PRN Reason: Anxiety Last Admin: 10/27/24 12:27 Dose: 0.5 mg Documented By: BONNIE Magnesium Hydroxide (Milk Of Magnesia 30 Ml Oral.Susp) 30 ml PO DAILY PRN PRN Reason: Constipation Melatonin (Melatonin 3 Mg Tablet) 6 mg PO BEDTIME PRN PRN Reason: Insomnia Last Admin: 10/28/24 00:43 Dose: 6 mg Documented By: EUGENE Metoprolol Succinate (Metoprolol Succinate Er 25 Mg Tab.Er.24h) 25 mg PO BEDTIME [facility]; Protocol Last Admin: 10/27/24 20:13 Dose: 25 mg Documented By: EUGENE Nystatin (Nystatin Powder 15 Gm Bottle) 1 appl TOPICAL BID PRN; Protocol PRN Reason: groin rash Omeprazole (Omeprazole 20 Mg Capsule.Dr) 20 mg PO DAILY@0630 [facility] Last Admin: 10/28/24 05:06 Dose: 20 mg Documented By: EUGENE Ondansetron HCl (Ondansetron Hcl 4 Mg/2 Ml Vial) 4 mg IVPUSH Q4H PRN PRN Reason: Nausea and Vomiting Polyethylene Glycol (Polyethylene Glycol 3350 17 Gm Powd.Pack) 17 gm PO DAILY [facility] Last Admin: 10/28/24 07:48 Dose: Not Given Documented By: RICHA Non-Admin Reason: NPO Sodium Chloride (0.9 % Sodium Chloride Flush 3 Ml Syringe) 3 ml IVFLUSH QSHIFT [facility] Last Admin: 10/28/24 15:06 Dose: Not Given Documented By: RICHA Non-Admin Reason: IV Running Sodium Zirconium Cyclosilicate (Sodium Zirconium Cyclosilicate 5 Gm Powd.Pack) 5 gm PO MOWEFR [facility] Last Admin: 10/27/24 18:07 Dose: 5 gm Documented By: EMILY Tamsulosin HCl (Tamsulosin Hcl 0.4 Mg Capsule) 0.8 mg PO DAILY@1700 [facility] Vitamin D (Cholecalciferol (Vitamin D3) 25 Mcg Tablet) 25 mcg PO DAILY [facility] Last Admin: 10/28/24 07:46 Dose: 25 mcg Documented By: RICHA Labs 10/28/24 05:54 10/28/24 05:54 Labs: Laboratory Results - last 24 hr 10/27/24 10/27/24 10/27/24 10:18 15:27 16:19 MCV MCH MCHC RDW Plt Count MPV Absolute Nucleated RBC Nucleated RBC % (auto) Anion Gap Estim Creat Clear Calc Estimated GFR POC Glucose 106 Random Glucose Calcium Total Bilirubin AST ALT Alkaline Phosphatase Total Protein Albumin Amylase 18 L Urine Color Yellow Urine Appearance Clear Urine pH 6.0 Ur Specific Desmet 1.020 Urine Protein >=1000 (4+) H Urine Glucose (UA) Negative Urine Ketones Negative Urine Blood Trace H Urine Nitrite Negative Ur Leukocyte Esterase Negative Urine RBC 0-2 Urine WBC 0-5 Ur Squamous Epith Cells 0-2 Urine Bacteria None Seen Hyaline Casts 3-5 10/27/24 10/27/24 10/27/24 16:55 17:18 20:25 MCV MCH MCHC RDW Plt Count MPV Absolute Nucleated RBC Nucleated RBC % (auto) Anion Gap Estim Creat Clear Calc Estimated GFR POC Glucose 99 86 105 Random Glucose Calcium Total Bilirubin AST ALT Alkaline Phosphatase Total Protein Albumin Amylase Urine Color Urine Appearance Urine pH Ur Specific Desmet Urine Protein Urine Glucose (UA) Urine Ketones Urine Blood Urine Nitrite Ur Leukocyte Esterase Urine RBC Urine WBC Ur Squamous Epith Cells Urine Bacteria Hyaline Casts 10/28/24 10/28/24 10/28/24 05:54 07:23 07:26 MCV 90.8 MCH 30.4 MCHC 33.5 RDW 14.3 Plt Count 361 MPV 9.6 Absolute Nucleated RBC 0.000 Nucleated RBC % (auto) 0.0 Anion Gap 13 Estim Creat Clear Calc 31.0 Estimated GFR 33 POC Glucose 259 H 246 H Random Glucose 248 H Calcium 8.0 L Total Bilirubin 0.2 AST 35 ALT 16 Alkaline Phosphatase 87 Total Protein 5.0 L Albumin 2.1 L Amylase Urine Color Urine Appearance Urine pH Ur Specific Desmet Urine Protein Urine Glucose (UA) Urine Ketones Urine Blood Urine Nitrite Ur Leukocyte Esterase Urine RBC Urine WBC Ur Squamous Epith Cells Urine Bacteria Hyaline Casts 10/28/24 11:34 MCV MCH MCHC RDW Plt Count MPV Absolute Nucleated RBC Nucleated RBC % (auto) Anion Gap Estim Creat Clear Calc Estimated GFR POC Glucose 113 Random Glucose Calcium Total Bilirubin AST ALT Alkaline Phosphatase Total Protein Albumin Amylase Urine Color Urine Appearance Urine pH Ur Specific Desmet Urine Protein Urine Glucose (UA) Urine Ketones Urine Blood Urine Nitrite Ur Leukocyte Esterase Urine RBC Urine WBC Ur Squamous Epith Cells Urine Bacteria Hyaline Casts Assessment and Plan (1) Hypoglycemia: Status: Acute (2) Pancreatitis: Status: Acute (3) Abdominal pain: Status: Acute (4) Prostatitis: Status: Acute Plan 43yo M with Down's syndrome, resident of a long-term, with PMHx of DM1, hypothyroidism, HTN, BPH, mood disorder, GERD, HLD, CKD, and IPF presenting with acute abdominal pain and found to have acute pancreatitis possibly related to doxycycline. acute pancreatitis IV fluids GI consult US to r/o gallstones avoid doxycycline for now Advance diet prostatitis recently diagnosed by urologist; UCx + urine GC/CT and give levofloxacin renally dosed CKD3 SCr near baseline DM1 with hypoglycemia resolved correction-dose lispro; hold glargine for now HTN amlodipine, metoprolol succinate mood disorder citalopram, lorazepam hypothyroidism continue LT4 GERD PPI BPH tamsulosin VTE ppx enoxaparin dispo long-term code status full I anticipate that the patient will stay overnight inpatient in the hospital due to the above reasons. It is neither reasonable nor safe to care for them in a less acute setting. Quality Stroke Does the patient have a stroke diagnosis?: No VTE Prior VTE?: No VTE Risk Level:: Medical - moderate - high VTE Device Contraindication: N/A - Device Ordered VTE Drug Contraindication: N/A - Med Ordered
[2024-10-28 16:17] LABS: Glucose, Whole Blood 301 mg/dL (60-115)
[2024-10-28] MEDS: Tamsulosin HCL 0.4 MG CAPSULE 0.8 MG PO (16:31)
[2024-10-28] MEDS: Ferrous Sulfate 324 MG TABLET.DR PO (16:31)
[2024-10-28] MEDS: Enoxaparin Sodium 40 MG/0.4 ML SYRINGE SUBCUT (16:32)
[2024-10-28 19:29] LABS: Glucose, Whole Blood 182 mg/dL (60-115)
[2024-10-28] MEDS: Docusate Sodium 100 MG CAPSULE 200 MG PO (21:01)
[2024-10-28] MEDS: bisacodyL 5 MG TABLET.DR 10 MG PO (21:01)
[2024-10-28] MEDS: Famotidine 20 MG TABLET PO (21:01)
[2024-10-28] MEDS: Metoprolol Succinate ER 25 MG TAB.ER.24H PO (21:01)
[2024-10-28] MEDS: Lactated Ringers 1,000 ML 150 ML IVCONT (23:17)
[2024-10-29] MEDS: Acetaminophen 325 MG TABLET 650 MG PO (02:22)
[2024-10-29] MEDS: Benzonatate 100 MG CAPSULE PO (02:23)
[2024-10-29 03:35] VITALS: BP 157/74; PULSE 81; RESP 18; TEMP 36.8; O2SAT 98
[2024-10-29] MEDS: Omeprazole 20 MG CAPSULE.DR PO (05:28)
[2024-10-29] MEDS: Levothyroxine Sodium 112 MCG TABLET PO (05:28)
[2024-10-29] MEDS: Lactated Ringers 1,000 ML 150 ML IVCONT (05:28)
[2024-10-29 06:29] LABS: MANUAL DIFF FLAG NO
[2024-10-29 06:34] LABS: Basophils Absolute Auto 0.1 X10*3/uL (0.0-0.2); Basophils Percent Auto 1.1 % (0-2); Eosinophils Absolute Auto 0.1 X10*3/uL (0.0-0.4); Eosinophils Percent Auto 1.4 % (0-4); Hemoglobin 10.9 g/dl (14.0-18.0); Imm Gran Abs Auto 0.04 X10*3/uL (0.00-0.03); Imm Gran Pct Auto 0.5 % (0.0-0.4); Lymphocytes Absolute Auto 1.1 X10*3/uL (1.2-4.9); Lymphocytes Percent Auto 13.5 % (20-40); Mean Corpuscular HGB Conc 34.1 g/dl (31.0-36.0); Mean Corpuscular Hemoglobin 30.8 pg (27.0-33.0); Mean Corpuscular Volume 90.4 fL (80.0-98.0); Mean Platelet Volume 9.1 fL (9.4-12.4); Monocytes Absolute Auto 0.5 X10*3/uL (0.1-1.2); Monocytes Percent Auto 5.7 % (2-11); Neutrophils Absolute Auto 6.3 x10*3/uL (2.0-8.3); Neutrophils Percent Auto 77.8 % (45-73); Platelet Count 319 X10*3/uL (160-400); Red Blood Count 3.54 X10*6/uL (4.60-5.80); Red Cell Distribution Width 14.1 % (11.0-16.0); White Blood Count 8.1 X10*3/uL (4.8-10.8)
[2024-10-29 07:07] VITALS: BP 167/76; PULSE 76; RESP 16; TEMP 36.6; O2SAT 98
[2024-10-29 07:13] LABS: Alanine Aminotransferase 22 U/L (0-40); Albumin Level 1.9 g/dL (3.5-5.0); Alkaline Phosphatase 79 U/L (39-117); Anion Gap 11 (12-20); Aspartate Amino Transferase 40 U/L (5-37); Bilirubin Direct 0.1 mg/dL (0.0-0.5); Bilirubin Total 0.3 mg/dL (0.0-1.0); Blood Urea Nitrogen 37 mg/dL (9-16); Carbon Dioxide 18 mmol/L (22-29); Chloride 109 mmol/L (96-108); Estimated Glomerular Filt Rate 36; Glucose Random 294 mg/dL (60-115); Potassium 5.2 mmol/L (3.3-5.1); Sodium 133 mmol/L (135-145); Total Protein 4.7 g/dL (6.5-8.0)
[2024-10-29 07:21] LABS: Glucose, Whole Blood 292 mg/dL (60-115)
[2024-10-29 07:30] VITALS: BP 167/76
[2024-10-29] MEDS: Folic Acid 1 MG TABLET PO (07:30)
[2024-10-29] MEDS: amLODIPine Besylate 5 MG TABLET PO (07:30)
[2024-10-29] MEDS: Lipase/Prot/Amylase 24/76/120K 1 CAP CAPSULE.DR PO ×4 (07:32→21:41)
[2024-10-29] MEDS: Aspirin Enteric Coated 81 MG TABLET.DR PO (07:32)
[2024-10-29] MEDS: Escitalopram Oxalate 10 MG TABLET PO (07:32)
[2024-10-29] MEDS: Insulin Lispro 100 UNIT/ML 3 ML VIAL SUBCUT ×2 (07:32→12:24)
[2024-10-29] MEDS: Atorvastatin Calcium 10 MG TABLET PO (07:32)
[2024-10-29] MEDS: Ascorbic Acid 500 MG TABLET PO (07:32)
[2024-10-29] MEDS: Loratadine 10 MG TABLET PO (07:32)
[2024-10-29] MEDS: Cholecalciferol (Vitamin D3) 25 MCG TABLET PO (07:32)
[2024-10-29] MEDS: Morphine Sulfate 2 MG/ML CARTRIDGE 1 MG IVPUSH (08:10)
[2024-10-29] MEDS: Sodium Zirconium Cyclosilicate 5 GM POWD.PACK PO ×2 (08:16→17:22)
[2024-10-29] MEDS: Insulin Glargine,Hum.rec.anlog 100 UNIT/ML 10 ML VIAL 8 UNIT SUBCUT (09:28)
--- NOTE | 2024-10-29 11:01 | MHC.CM.PN ---
Addendum entered by Eryn Mcgill RN 10/29/24 11:21: RETIREMENT PAPERWORK ON CHART TO BE COMPLETED BY MD PRIOR TO DC. Original Note: PER MD ROUNDS PATIENT NOT MEDICALLY CLEARED FOR DC, POTENTIAL DC TOMORROW. RETIREMENT STAFF UPDATED.
[2024-10-29 11:29] LABS: Glucose, Whole Blood 289 mg/dL (60-115)
[2024-10-29] MEDS: Lactated Ringers 1,000 ML 100 ML IVCONT ×2 (12:26→21:41)
--- NOTE | 2024-10-29 13:38 | HO.PM.IMPN ---
Subjective Subjective Date of Service: 10/29/24 Interval History: seen and evaluated this morning feels better no nausea or vomiting no other events Physical Exam Vital Signs: Vital Signs: Last Vital Signs Temp 97.8 F 10/29/24 07:07 Pulse 76 10/29/24 07:07 Resp 16 10/29/24 07:07 BP 167/76 H 10/29/24 07:30 Pulse Ox 98 10/29/24 07:07 O2 Del Method Room Air 10/29/24 07:07 BMI result Body Mass Index 29.1 Const: Other: Constitutional : Awake, interactive, not in distress Neck : Normal inspection, Supple Cardiovascular : RRR, no JVP, no lower extremity edema Respiratory : good bilateral air entry, no crackles, wheezes or rhonchi Gastrointestinal: soft, lax, Normal bowel sounds, mild epigastric tenderness Skin : Warm, Dry Neurological : Alert & oriented x3, No focal deficit Objective Data Active Medications Acetaminophen (Acetaminophen 325 Mg Tablet) 650 mg PO Q6H PRN PRN Reason: Pain, Mild 1-3,fever,headache Last Admin: 10/29/24 02:22 Dose: 650 mg Documented By: JUNIOR Albuterol/Ipratropium (Albuterol/Iprat 2.5/0.5mg 3 Ml Ampul.Neb) 3 ml INHALE RBID REPLACED BY [facility] Last Admin: 10/29/24 07:54 Dose: Not Given Documented By: EMILE Non-Admin Reason: pt being assessed for c/o chest pain. Amlodipine Besylate (Amlodipine Besylate 5 Mg Tablet) 5 mg PO DAILY [facility]PL[facility] BY [facility]; Protocol Last Admin: 10/29/24 07:30 Dose: 5 mg Documented By: RICHA Lipase/Protease/Amylase (Lipase/Prot/Amylase 24/76/120k 1 Cap Capsule.) 1 cap PO QID REPLACED BY [facility] Last Admin: 10/29/24 12:22 Dose: 1 cap Documented By: MARY Ascorbic Acid (Ascorbic Acid 500 Mg Tablet) 500 mg PO DAILY [facility]PL[facility]ED BY [facility] Last Admin: 10/29/24 07:32 Dose: 500 mg Documented By: RICHA Aspirin (Aspirin Enteric Coated 81 Mg Tablet.) 81 mg PO DAILY [facility]PL[facility] BY [facility] Last Admin: 10/29/24 07:32 Dose: 81 mg Documented By: RICHA Atorvastatin Calcium (Atorvastatin Calcium 10 Mg Tablet) 10 mg PO DAILY [facility]PL[facility] BY [facility] Last Admin: 10/29/24 07:32 Dose: 10 mg Documented By: RICHA Azithromycin (Azithromycin 250 Mg Tablet) 250 mg PO MOWEFR@2000 REPL[facility]ED BY [facility] Last Admin: 10/27/24 20:14 Dose: 250 mg Documented By: EUGENE Benzonatate (Benzonatate 100 Mg Capsule) 100 mg PO TID PRN PRN Reason: Cough Last Admin: 10/29/24 02:23 Dose: 100 mg Documented By: JUNIOR Bisacodyl (Bisacodyl 5 Mg Tablet.) 10 mg PO BEDTIME REPLACED BY [facility] Last Admin: 10/28/24 21:01 Dose: 10 mg Documented By: JUNIOR Bisacodyl (Bisacodyl 10 Mg Supp.Rect) 10 mg DE DAILY PRN PRN Reason: constipation Calcium Carbonate (Calcium Carbonate 750 Mg Tab.Chew) 750 mg PO Q4H PRN PRN Reason: Heartburn Dextrose (Dextrose 50 % 25 Gm/50 Ml Syringe) 25 gm IVPUSH Q15M PRN; Protocol PRN Reason: per Hypoglycemia Standing Ord. Docusate Sodium (Docusate Sodium 100 Mg Capsule) 200 mg PO BEDTIME [facility]PLACED BY [facility] Last Admin: 10/28/24 21:01 Dose: 200 mg Documented By: JUNIOR Enoxaparin Sodium (Enoxaparin Sodium 40 Mg/0.4 Ml Syringe) 40 mg SUBCUT Q24H REPLACED BY [facility] Last Admin: 10/28/24 16:32 Dose: 40 mg Documented By: RICHA Escitalopram Oxalate (Escitalopram Oxalate 10 Mg Tablet) 10 mg PO DAILY [facility]PL[facility] BY [facility] Last Admin: 10/29/24 07:32 Dose: 10 mg Documented By: RICHA Famotidine (Famotidine 20 Mg Tablet) 20 mg PO BEDTIME REPLACED BY [facility] Last Admin: 10/28/24 21:01 Dose: 20 mg Documented By: JUNIOR Ferrous Sulfate (Ferrous Sulfate 324 Mg Tablet.) 324 mg PO DAILY@1600 REPLACED BY [facility] Last Admin: 10/28/24 16:31 Dose: 324 mg Documented By: RICHA Folic Acid (Folic Acid 1 Mg Tablet) 1 mg PO DAILY [facility]PL[facility]ED BY [facility] Last Admin: 10/29/24 07:30 Dose: 1 mg Documented By: RICHA Glucose (Glucose Gel 15 Gm Gel..Gram.) 15 gm PO Q15M PRN; Protocol PRN Reason: per Hypoglycemia Standing Ord. Lactated Ringer's (Lr) 1,000 mls @ 100 mls/hr IVCONT .Q10H REPLACED BY [facility] Last Admin: 10/29/24 12:26 Dose: 100 mls/hr Documented By: MARY Insulin Glargine (Insulin Glargine,Hum.Rec.Anlog 100 Unit/Ml 10 Ml Vial) 8 unit SUBCUT DAILY REPLACED BY [facility] Last Admin: 10/29/24 09:28 Dose: 8 unit Documented By: MARY Insulin Human Lispro (Insulin Lispro 100 Unit/Ml 3 Ml Vial) 0 unit SUBCUT QIDACHS REPLACED BY [facility]; Protocol Last Admin: 10/29/24 12:24 Dose: 6 unit Documented By: MARY Ketorolac Tromethamine (Ketorolac Tromethamine 15 Mg/Ml Vial) 15 mg IVPUSH Q6H PRN PRN Reason: Pain, Severe (Pain Scale 7-10) Stop: 11/01/24 09:53 Levofloxacin (Levofloxacin 750 Mg Tablet) 750 mg PO Q48H REPLACED BY [facility] Last Admin: 10/27/24 17:28 Dose: 750 mg Documented By: MILEY Levothyroxine Sodium (Levothyroxine Sodium 112 Mcg Tablet) 112 mcg PO DAILY@0600 REPLACED BY [facility] Last Admin: 10/29/24 05:28 Dose: 112 mcg Documented By: JUNIOR Loratadine (Loratadine 10 Mg Tablet) 10 mg PO DAILY REPLACED BY [facility] Last Admin: 10/29/24 07:32 Dose: 10 mg Documented By: RICHA Lorazepam (Lorazepam 0.5 Mg Tablet) 0.5 mg PO ONCE PRN PRN Reason: Anxiety Last Admin: 10/27/24 12:27 Dose: 0.5 mg Documented By: BONNIE Magnesium Hydroxide (Milk Of Magnesia 30 Ml Oral.Susp) 30 ml PO DAILY PRN PRN Reason: Constipation Melatonin (Melatonin 3 Mg Tablet) 6 mg PO BEDTIME PRN PRN Reason: Insomnia Last Admin: 10/28/24 00:43 Dose: 6 mg Documented By: EUGENE Metoprolol Succinate (Metoprolol Succinate Er 25 Mg Tab.Er.24h) 25 mg PO BEDTIME REPLACED BY [facility]; Protocol Last Admin: 10/28/24 21:01 Dose: 25 mg Documented By: JUNIOR Morphine Sulfate (Morphine Sulfate 2 Mg/Ml Cartridge) 1 mg IVPUSH Q4H PRN; Protocol PRN Reason: Pain, Severe (Pain Scale 7-10) Last Admin: 10/29/24 08:10 Dose: 1 mg Documented By: RICHA Nystatin (Nystatin Powder 15 Gm Bottle) 1 appl TOPICAL BID PRN; Protocol PRN Reason: groin rash Omeprazole (Omeprazole 20 Mg Capsule.Dr) 20 mg PO DAILY@0630 REPLACED BY [facility] Last Admin: 10/29/24 05:28 Dose: 20 mg Documented By: JUNIOR Ondansetron HCl (Ondansetron Hcl 4 Mg/2 Ml Vial) 4 mg IVPUSH Q4H PRN PRN Reason: Nausea and Vomiting Polyethylene Glycol (Polyethylene Glycol 3350 17 Gm Powd.Pack) 17 gm PO DAILY REPLACED BY [facility] Last Admin: 10/29/24 07:24 Dose: Not Given Documented By: RICHA Non-Admin Reason: multiple BMs overnight Sodium Chloride (0.9 % Sodium Chloride Flush 3 Ml Syringe) 3 ml IVFLUSH QSHIFT REPLACED BY [facility] Last Admin: 10/29/24 07:33 Dose: Not Given Documented By: RICHA Non-Admin Reason: IV Running Sodium Zirconium Cyclosilicate (Sodium Zirconium Cyclosilicate 5 Gm Powd.Pack) 5 gm PO MOWEFR REPLACED BY [facility] Last Admin: 10/27/24 18:07 Dose: 5 gm Documented By: EMILY Tamsulosin HCl (Tamsulosin Hcl 0.4 Mg Capsule) 0.8 mg PO DAILY@1700 REPLACED BY [facility] Last Admin: 10/28/24 16:31 Dose: 0.8 mg Documented By: RICHA Vitamin D (Cholecalciferol (Vitamin D3) 25 Mcg Tablet) 25 mcg PO DAILY REPLACED BY [facility] Last Admin: 10/29/24 07:32 Dose: 25 mcg Documented By: RICHA Labs 10/29/24 06:15 10/29/24 06:15 Labs: Laboratory Results - last 24 hr 10/28/24 10/28/24 10/29/24 16:13 19:17 06:15 MCV 90.4 MCH 30.8 MCHC 34.1 RDW 14.1 Plt Count 319 MPV 9.1 L Immature Gran % (Auto) 0.5 H Neut % (Auto) 77.8 H Lymph % (Auto) 13.5 L Bremer % (Auto) 5.7 Eos % (Auto) 1.4 Baso % (Auto) 1.1 Lymph # (Auto) 1.1 L Bremer # (Auto) 0.5 Eos # (Auto) 0.1 Baso # (Auto) 0.1 Abs Immat Gran (auto) 0.04 H Absolute Neuts (auto) 6.3 Absolute Nucleated RBC 0.000 Nucleated RBC % (auto) 0.0 Anion Gap 11 L Estim Creat Clear Calc 33.0 Estimated GFR 36 POC Glucose 301 H 182 H Random Glucose 294 H Calcium 8.0 L Total Bilirubin 0.3 Direct Bilirubin 0.1 AST 40 H ALT 22 Alkaline Phosphatase 79 Total Protein 4.7 L Albumin 1.9 L 10/29/24 10/29/24 07:09 11:20 MCV MCH MCHC RDW Plt Count MPV Immature Gran % (Auto) Neut % (Auto) Lymph % (Auto) Bremer % (Auto) Eos % (Auto) Baso % (Auto) Lymph # (Auto) Bremer # (Auto) Eos # (Auto) Baso # (Auto) Abs Immat Gran (auto) Absolute Neuts (auto) Absolute Nucleated RBC Nucleated RBC % (auto) Anion Gap Estim Creat Clear Calc Estimated GFR POC Glucose 292 H 289 H Random Glucose Calcium Total Bilirubin Direct Bilirubin AST ALT Alkaline Phosphatase Total Protein Albumin Assessment and Plan (1) Hypoglycemia: Status: Acute (2) Pancreatitis: Status: Acute (3) Abdominal pain: Status: Acute (4) Prostatitis: Status: Acute Plan 43yo M with Down's syndrome, resident of a shelter, with PMHx of DM1, hypothyroidism, HTN, BPH, mood disorder, GERD, HLD, CKD, and IPF presenting with acute abdominal pain and found to have acute pancreatitis possibly related to doxycycline. acute pancreatitis improving continue IV fluids US negative for gallstones but showing pancreatitis GI consult, Outpatient MRI pancreas protocol in 4-6 weeks avoid doxycycline for now Advance diet chest pain negative V/Q scan EKG not showing ST\T wave changes , negative trop reproducible, seems muscular Acute hyperkalemia Lokelma follow BMP recent prostatitis recently diagnosed by urologist; UCx + urine GC/CT and give levofloxacin renally dosed CKD3 SCr near baseline DM1 with hypoglycemia resolved correction-dose lispro; hold glargine for now HTN amlodipine, metoprolol succinate mood disorder citalopram, lorazepam hypothyroidism continue LT4 GERD PPI BPH tamsulosin VTE ppx enoxaparin dispo shelter code status full I anticipate that the patient will stay overnight inpatient in the hospital due to the above reasons. It is neither reasonable nor safe to care for them in a less acute setting. Quality Stroke Does the patient have a stroke diagnosis?: No VTE Prior VTE?: No VTE Risk Level:: Medical - moderate - high VTE Device Contraindication: N/A - Device Ordered VTE Drug Contraindication: N/A - Med Ordered
--- NOTE | 2024-10-29 13:54 | P.CDIM_ITS ---
PROVIDER RESPONSE TEXT: To clarify, the appropriate diagnosis supported by the clinical indicators: Hyperkalemia QUERY TEXT: PHYSICIAN'S DOCUMENTATION REQUEST Date of Query: 10/29/2024 08:39 AM EDT Patient Name: Bernard Navarro Admit Date: 10/27/2024 Dear Jacy Wilson MD, A review of the medical record indicates additional documentation may be needed. Please review below and update the documentation accordingly. Clinical Indicators: Potassium on 10/27/24: 5.3 Lokelma 5 gm po MOWEFR Potassium on 10/29/24: 5.2 Based on the above, could you clarify the appropriate diagnosis, if significant, that supports the ab ove abnormalities and additional evaluation, monitoring, and/or treatment rendered: Hyperkalemia Labs indicate a diagnosis of (please specify) Other (explain) Clinically unable to determine (explain) Thank you, Elba Maldonado RN Use of terms such as suspected, likely, concern for, or probable (associated with a specific diagnosi s that is being evaluated, monitored, or treated as if it exists) are acceptable and can be coded in the inpatient se tting, when documented at the time of discharge. Please use your independent medical judgment in providing your response. THIS QUERY IS PART OF THE PERMANENT MEDICAL RECORD
[2024-10-29 14:49] LABS: Anion Gap 7 (12-20); Blood Urea Nitrogen 34 mg/dL (9-16); Carbon Dioxide 23 mmol/L (22-29); Chloride 105 mmol/L (96-108); Creatinine Clr Calc Pharmacy 34.7; Estimated Glomerular Filt Rate 38; Glucose Random 152 mg/dL (60-115); Potassium 4.2 mmol/L (3.3-5.1); Sodium 133 mmol/L (135-145)
[2024-10-29 15:08] VITALS: BP 142/79; PULSE 70; RESP 18; TEMP 36.8; O2SAT 97
[2024-10-29 16:05] LABS: Glucose, Whole Blood 121 mg/dL (60-115)
[2024-10-29] MEDS: Ferrous Sulfate 324 MG TABLET.DR PO (16:36)
[2024-10-29] MEDS: Enoxaparin Sodium 40 MG/0.4 ML SYRINGE SUBCUT (16:36)
[2024-10-29] MEDS: Tamsulosin HCL 0.4 MG CAPSULE 0.8 MG PO (16:36)
[2024-10-29] MEDS: levoFLOXacin 750 MG TABLET PO (16:36)
[2024-10-29] MEDS: Ketorolac Tromethamine 15 MG/ML VIAL IVPUSH (17:22)
[2024-10-29 19:15] VITALS: BP 142/67; PULSE 83; RESP 18; TEMP 37.1; O2SAT 98
[2024-10-29] MEDS: Albuterol/Iprat 2.5/0.5MG 3 ML AMPUL.NEB INHALE (19:16)
[2024-10-29 19:18] VITALS: PULSE 83; RESP 18; O2SAT 95
[2024-10-29 19:35] LABS: Glucose, Whole Blood 76 mg/dL (60-115)
[2024-10-29] MEDS: Azithromycin 250 MG TABLET PO (19:38)
[2024-10-29] MEDS: Metoprolol Succinate ER 25 MG TAB.ER.24H PO (21:41)
[2024-10-29] MEDS: Famotidine 20 MG TABLET PO (21:41)
[2024-10-30] MEDS: Ketorolac Tromethamine 15 MG/ML VIAL IVPUSH (01:50)
[2024-10-30 04:00] VITALS: BP 161/73; PULSE 71; RESP 18; TEMP 36.9; O2SAT 98
[2024-10-30] MEDS: 0.9 % Sodium Chloride Flush 3 ML SYRINGE IVFLUSH ×2 (05:29→07:54)
[2024-10-30] MEDS: Levothyroxine Sodium 112 MCG TABLET PO (05:31)
[2024-10-30] MEDS: Omeprazole 20 MG CAPSULE.DR PO (05:31)
[2024-10-30 07:47] LABS: Glucose, Whole Blood 82 mg/dL (60-115)
[2024-10-30] MEDS: Cholecalciferol (Vitamin D3) 25 MCG TABLET PO (07:49)
[2024-10-30] MEDS: Aspirin Enteric Coated 81 MG TABLET.DR PO (07:50)
[2024-10-30] MEDS: Loratadine 10 MG TABLET PO (07:50)
[2024-10-30] MEDS: Atorvastatin Calcium 10 MG TABLET PO (07:50)
[2024-10-30] MEDS: Escitalopram Oxalate 10 MG TABLET PO (07:51)
[2024-10-30] MEDS: Lipase/Prot/Amylase 24/76/120K 1 CAP CAPSULE.DR PO ×2 (07:51→12:15)
[2024-10-30] MEDS: Folic Acid 1 MG TABLET PO (07:51)
[2024-10-30] MEDS: Ascorbic Acid 500 MG TABLET PO (07:51)
[2024-10-30 07:52] VITALS: BP 164/70
[2024-10-30] MEDS: amLODIPine Besylate 5 MG TABLET PO (07:52)
[2024-10-30 07:53] VITALS: BP 164/70; PULSE 64; RESP 18; TEMP 36.2; O2SAT 97
[2024-10-30] MEDS: polyethylene glycoL 3350 17 GM POWD.PACK PO (07:53)
[2024-10-30] MEDS: Lactated Ringers 1,000 ML 100 ML IVCONT (08:14)
[2024-10-30 08:25] VITALS: PULSE 57; RESP 17; O2SAT 95
[2024-10-30] MEDS: Albuterol/Iprat 2.5/0.5MG 3 ML AMPUL.NEB INHALE (08:25)
[2024-10-30] MEDS: Insulin Glargine,Hum.rec.anlog 100 UNIT/ML 10 ML VIAL 8 UNIT SUBCUT (09:18)
[2024-10-30 11:15] LABS: Glucose, Whole Blood 283 mg/dL (60-115)
--- NOTE | 2024-10-30 11:51 | PM.DS ---
DS: Providers Provider Date of Service: 10/30/24 Date of admission: 10/27/24 15:39 Date of discharge: 10/30/24 Primary care physician: Boris Mcgowan MD Consults: 10/27/24 15:30 Consult to Gastroenterology Routine Consulting Provider: [facility] [place] Gastroenterology Services Reason for consultation: pancreaitits DS: Diagnosis Discharge Diagnosis (1) Hypoglycemia: Status: Acute (2) Pancreatitis: Status: Acute (3) Abdominal pain: Status: Acute (4) Prostatitis: Status: Acute (5) Chest pain: Status: Acute (6) Acute hyperkalemia: Status: Acute DS: Summary Hospital Course Hospital Course: Admission note HPI 43yo M with Down's syndrome, resident of a longterm, with PMHx of DM1, hypothyroidism, BPH, HTN, mood disorder, GERD, HLD, CKD, and IPF presenting with 1-day history of severe abdominal pain to the point where he was crying, hitting himself, throwing himself on the ground, and trying to scratch his abdomen. No nausea or vomiting. No diarrhea or constipation. Recently seen by [facility] [place] Urology 10/23 and started on doxycycline for prostatitis. In the ED, he had a CT of the abdomen showing edema and inflammatory stranding consistent with pancreatitis despite normal seruml lipase. No history of gallstones and he does not drink EtOH. No prior history of pancreatitis though it is notable that he is prescribed pancreatic enzyme replacement. Hospital course The patient was treated for the following: # Acute pancreatitis The patient presented with abdominal pain. CT scan showed Findings consistent with acute pancreatitis as described. US negative for gallstones but showing pancreatitis. Treated with IV fluids and pain medicaitons with bowel rest. He showed improvement as he was seen by GI dr Martínez who recommended Outpatient MRI pancreas protocol in 4-6 weeks. To avoid doxycycline for now. Diet was advanced with good tolerance. To use Zofran as needed for nausea. # For chest pain he had negative V/Q scan and EKG not showing ST\T wave changes , negative trop. likely radiating from his abdomen or muscular in origin. resolved during hospital stay. # Acute hyperkalemia resolved with Lokelma, to continue at home. # prostatitis was recently diagnosed by urologist; Doxycycline discontinued and he was given levofloxacin renally dosed with good tolerance. To continue for 3 more doses to finish total of 2 weeks of treatment. Discharge plan zofran as needed for nausea Discontinue Doxycycline Hold Azithromycin until November 06 take Levofloxacin 750 mg every 2 days starting Sunday for 3 more doses Follow with [facility] [place] GI dr Martínez for further work up and evaluation of your pancreas problem To do an MRI for Pancreas in 2 weeks Time Attestation Discharge Coordination Time (in mins): 37 Quality: Safe Use of Opioids Does Pt have an Active Cancer Diagnosis on the Problem List?: No Quality: Stroke Does the patient have a stroke diagnosis?: No Physical Exam Vital Signs: Vital Signs: Last Vital Signs Temp 97.1 F 10/30/24 07:53 Pulse 57 10/30/24 08:25 Resp 17 10/30/24 08:25 BP 164/70 H 10/30/24 07:53 Pulse Ox 97 10/30/24 07:53 O2 Del Method Room Air 10/30/24 07:53 BMI result Body Mass Index 29.1 Const: Other: Constitutional : Awake, interactive, not in distress Neck : Normal inspection, Supple Cardiovascular : RRR, no JVP, no lower extremity edema Respiratory : good bilateral air entry, no crackles, wheezes or rhonchi Gastrointestinal: soft, lax, Normal bowel sounds, mild epigastric tenderness Skin : Warm, Dry Neurological : Alert & oriented x3, No focal deficit DS: Data Data Completed and Pending Labs on day of discharge: Laboratory Results - last 24 hr 10/29/24 10/29/24 10/29/24 14:04 16:00 19:18 Sodium 133 L Potassium 4.2 Chloride 105 Carbon Dioxide 23 Anion Gap 7 L BUN 34 H Creatinine 1.95 H Estim Creat Clear Calc 34.7 Estimated GFR 38 POC Glucose 121 H 76 Random Glucose 152 H Calcium 8.0 L 10/30/24 10/30/24 07:41 11:11 Sodium Potassium Chloride Carbon Dioxide Anion Gap BUN Creatinine Estim Creat Clear Calc Estimated GFR POC Glucose 82 283 H Random Glucose Calcium Imaging CT scan - abdomen: Radiologist's impression: ITS Impressions Abdomen/Pelvis CT 10/27/24 10:02 IMPRESSION: Findings consistent with acute pancreatitis as described. Electronically signed by: Rhys Chambers MD 10/27/2024 11:18 AM EDT Chest X-Ray 10/27/24 11:13 IMPRESSION: Mild interstitial lung edema in the correct clinical settings. Cardiogenic versus nephrogenic. Electronically signed by: Donny Pritchard MD 10/27/2024 11:24 AM EDT RP Pulmonary Perfusion Imaging 10/27/24 11:13 IMPRESSION: No perfusion defects. Normal exam. Electronically signed by: Juan Wood MD 10/27/2024 01:48 PM EDT RP Discharge Plan Discharge Anticipated Discharge Date/Time: 10/30/24 11:37 Patient Disposition: Home Health Service Discharge Diagnosis: Pancreatitis Referrals: [facility] [Outside] - 1 Day (resume nursing services) Po,Boris Mack MD [Primary Care Provider] - 1 Week Discharge Medications: New ondansetron 4 mg tablet,disintegrating 4 mg PO Q8H PRN (Reason: nausea and vomiting) Qty: 14 0RF levofloxacin 750 mg Tablet 750 mg PO Q48H Qty: 3 0RF Continued docusate sodium 100 mg capsule 200 mg PO BEDTIME Qty: 180 3RF insulin glargine [Lantus Solostar U-100 Insulin] 100 unit/mL (3 mL) insulin pen 13 unit subcut DAILY@1700 ipratropium-albuterol 0.5 mg-3 mg(2.5 mg base)/3 mL solution for nebulization 3 ml INHALATION BID 30 Days Qty: 180 6RF Rx Instructions: rinse/wash mouth after each use polyethylene glycol 3350 [Miralax] 17 gram/dose powder 17 g PO DAILY Qty: 510 2RF tamsulosin 0.4 mg capsule 0.8 mg PO DAILY@1700 90 Days Qty: 180 1RF amlodipine 5 mg tablet 5 mg PO DAILY Qty: 90 1RF simvastatin 20 mg tablet 20 mg PO BEDTIME Qty: 30 4RF famotidine [Pepcid] 20 mg tablet 20 mg PO BEDTIME Qty: 30 3RF Creon 24,000-76,000 -120,000 unit capsule,delayed release(DR/EC) 1 cap PO QID Qty: 120 2RF Rx Instructions: administer with meals and/or snacks aspirin 81 mg tablet,delayed release (DR/EC) 81 mg PO DAILY Qty: 90 0RF Rx Instructions: take with food insulin lispro [Humalog KwikPen Insulin] 100 unit/mL insulin pen 1 sliding scale dose subcut TIDAC Protocol: Insulin Correction Scale Less than or equal to 110 ---- Give (units): 0 111 to 150 Give (units): 0 151 to 200 Give (units): 2 201 to 250 Give (units): 4 251 to 300 Give (units): 6 301 to 350 Give (units): 8 Greater than 350 Give (units): 10 Call MD if Blood Glucose > : 350 Desitin 40 % Paste 1 appl TOPICAL DAILY Rx Instructions: small amount daily after shower topically to head of penis citalopram 20 mg tablet 20 mg PO DAILY glucose 4 gram Tablet,Chewable 16 g PO Q15M PRN (Reason: Hypoglycemia) Rx Instructions: until symptoms of low blood sugar are controlled levothyroxine 112 mcg tablet 112 mcg PO DAILY@0600 Systane (PF) 0.4-0.3 % Dropperette 1 drp OPHTHALMIC (EYE) QID PRN (Reason: Dry Eye(S)) cholecalciferol (vitamin D3) [Vitamin D3] 25 mcg (1,000 unit) Tablet 25 mcg PO DAILY dextromethorphan polistirex [Delsym 12 hour] 30 mg/5 mL suspension,extended rel 12 hr 10 ml PO BEDTIME PRN (Reason: cough) cetirizine 10 mg tablet 10 mg PO DAILY omeprazole 20 mg capsule,delayed release(DR/EC) 20 mg PO DAILY@0630 metoprolol succinate 25 mg tablet extended release 24 hr 25 mg PO BEDTIME Protocol: Hold for SBP< HOLD for SBP < : 90 ferrous sulfate 325 mg (65 mg iron) tablet,delayed release (DR/EC) 325 mg PO DAILY@1600 Rx Instructions: 325 mg orally once a day at 4 pm; Lokelma 5 gram powder in packet 5 g PO MOWEFR Rx Instructions: 5 grams orally 3 times a week( every SUN,SUN,Fridays); Mix with water. ciclopirox 0.77 % cream 1 appl topical BID nystatin 100,000 unit/gram powder 1 appl topical BID PRN (Reason: groin rash) Qty: 60 0RF (DME) pen needle, diabetic [Comfort EZ Pen [place]] 33 gauge x 5/32 needle See Rx Instructions .ROUTE .MEDSUPPLY Qty: 100 Rx Instructions: As directed bisacodyl [Dulcolax (bisacodyl)] 5 mg tablet,delayed release (DR/EC) 10 mg PO BEDTIME Qty: 180 4RF diclofenac sodium 1 % gel 4 g topical Q6H PRN (Reason: Foot Pain) Rx Instructions: apply to single knee, ankle, foot; for foot includes sole/toes/top of foot (DME) True Comfort Safety Pen Needle 32 gauge x 5/32 needle See Rx Instructions .ROUTE .MEDSUPPLY Qty: 100 Rx Instructions: As directed (DME) FreeStyle Lite Strips Strip See Rx Instructions .ROUTE QID Qty: 10 Rx Instructions: As directed bisacodyl [Dulcolax (bisacodyl)] 10 mg suppository 10 mg DC DAILY PRN (Reason: constipation) Qty: 30 0RF acetaminophen [Tylenol] 325 mg tablet 650 mg PO Q6H PRN (Reason: pain) Qty: 30 5RF ascorbic acid (vitamin C) [Vitamin C] 500 mg tablet 500 mg PO DAILY Qty: 90 1RF folic acid 800 mcg tablet 0.8 mg PO DAILY Qty: 90 3RF Held azithromycin 250 mg tablet 250 mg PO MOWEFR@2000 Hold Instructions: Resume on 11/05/24. Discharge Orders: Discharge Order (Routine); Ordered 10/30/24 Ordered By: Jacy Wilson Diet: Low salt diet Activity on Discharge: As tolerated Stand Alone Forms: Patient Portal Discharge page, Work/School Release Print Language: Iraqi Other Ambulatory Orders: abdomen wo/w con (Routine) Timeframe: 2 Weeks Facility: [facility] - Location: MRI Ordered By: Jacy Wilson Care Plan Goals: zofran as needed for nausea Discontinue Doxycycline Hold Azithromycin until November 06 take Levofloxacin 750 mg every 2 days starting Sunday for 3 more doses Follow with [facility] [place] GI dr Martínez for further work up and evaluation of your pancreas problem To do an MRI for Pancreas in 2 weeks Health Concerns: Pancreatitis Prostate infection Plan of Treatment: Increase fluid intake Follow with Gastroenterology Do MRI Levofloxacin Assessment: as above
--- NOTE | 2024-10-30 12:06 | MHC.CM.PN ---
Per MD patient medically cleared for dc back to senior living. Will resume day program and SN through [facility]. Mother and program director group work at bedside to transport.
[2024-10-30] MEDS: Insulin Lispro 100 UNIT/ML 3 ML VIAL SUBCUT (12:14)
--- NOTE | 2024-10-30 13:43 | W.MHC.F2F ---
Service Date Service Date: 10/30/24 Encounter Date of encounter: 10/30/24 Reasons for Services Signs and symptoms assessed: Pancreatitis Physical deconditioning Reason for retirement: medication management and teach disease management Reason for physical therapy: home safety and mobility and therapeutic exercises Homebound: Leaving the home is medically contraindicated at this time without the asist of a device and/or another person due th the listed conditions above and below. Reason homebound: unsteady gait / fall risk Certification: Based on the above findings, I certify that this patient is confined to the home and needs intermittent retirement care, physical therapy and/or speech therapy, or continues to need occupational therapy. The patient is under my care, and I have initiated the establishment of the plan of care. The patient will be followed by a physician who will periodically review the plan of care. Time Spent With Patient Time: Total time managing care of this patient today ____ minutes.
== END 2024-10-30 13:20 | disposition home health service (06) | DRG 440 ==
LOC: HO.ED 14:52 → HO.EDOVER 15:44 → HO.S3 16:32
PROVIDERS: Admitting Provider Family Medicine; Emergency Provider Emergency Medicine; PCP Internal Medicine; Visit Provider Student in an Organized Health Care Education/Training Program
DX: K85.30 Drug induced acute pancreatitis without necrosis or infection (principal); T36.4X5A Adverse effect of tetracyclines, initial encounter; E03.9 Hypothyroidism, unspecified; Q90.9 Down syndrome, unspecified; E10.649 Type 1 diabetes mellitus with hypoglycemia without coma; N41.9 Inflammatory disease of prostate, unspecified; I12.9 Hypertensive chronic kidney disease with stage 1 through stage 4 chronic kidney disease, or unspecified chronic kidney disease; E87.5 Hyperkalemia; N18.30 Chronic kidney disease, stage 3 unspecified; F39 Unspecified mood [affective] disorder; K21.9 Gastro-esophageal reflux disease without esophagitis; N40.0 Benign prostatic hyperplasia without lower urinary tract symptoms; Z20.822 Contact with and (suspected) exposure to COVID-19; Z79.890 Hormone replacement therapy; Z79.899 Other long term (current) drug therapy
CPT/HCPCS: 0241U; 36415; 71045; 74176; 76705; 78580; 80048; 80053; 80076; 81001; 82150; 82947; 83605; 83615; 83690; 83735; 83880; 84478; 84484; 85025; 85027; 85379; 93005; 94640; 99285; A9540; J0131; J1650; J1885; J2270; J7120

== ENCOUNTER → 2024-10-27 10:01 | Outpatient (BNV) | payer MEDICARE, MEDICAID, SELFPAY | PROVIDERS: Admitting Provider Family Medicine; Emergency Provider Emergency Medicine; PCP Internal Medicine; Visit Provider Internal Medicine Cardiovascular Disease | DX: R55 Syncope and collapse (principal) | CPT/HCPCS: 93010 ==

== ENCOUNTER → 2024-10-27 10:02 | Outpatient (BNV) | payer MEDICARE, MEDICAID, SELFPAY | PROVIDERS: Emergency Provider Emergency Medicine; PCP Internal Medicine; Visit Provider Radiology Diagnostic Radiology | DX: R10.817 Generalized abdominal tenderness (principal); R07.9 Chest pain, unspecified; R06.00 Dyspnea, unspecified | CPT/HCPCS: 78580 ==

== ENCOUNTER → 2024-10-27 15:39 | Outpatient (BNV) | payer MEDICARE, MEDICAID, SELFPAY | PROVIDERS: Admitting Provider Family Medicine; Emergency Provider Emergency Medicine; PCP Internal Medicine; Visit Provider Internal Medicine | DX: R10.84 Generalized abdominal pain (principal); K85.90 Acute pancreatitis without necrosis or infection, unspecified; N17.9 Acute kidney failure, unspecified | CPT/HCPCS: 99222 ==

== ENCOUNTER → 2024-10-27 15:39 | Outpatient (BNV) | payer MEDICARE, MEDICAID, SELFPAY | PROVIDERS: Admitting Provider Family Medicine; Emergency Provider Emergency Medicine; PCP Internal Medicine; Visit Provider Student in an Organized Health Care Education/Training Program | DX: E16.2 Hypoglycemia, unspecified (principal); K85.90 Acute pancreatitis without necrosis or infection, unspecified; R10.84 Generalized abdominal pain; N41.9 Inflammatory disease of prostate, unspecified | CPT/HCPCS: 99232; 99233; 99239; G0180 ==

== ENCOUNTER 2024-11-11 07:54 | Emergency (ER) | payer MEDICARE, MEDICAID, SELFPAY ==
--- NOTE | 2024-11-11 | ECG_ITS ---
Test Reason : chest pain Blood Pressure : */* mmHG Vent. Rate : 72 BPM Atrial Rate : 72 BPM P-R Int : 114 ms QRS Dur : 84 ms QT Int : 420 ms P-R-T Axes : 48 -12 30 degrees QTcB Int : 459 ms Normal sinus rhythm Normal ECG When compared with ECG of 27-Oct-2024 10:23, No significant change was found Referred By: Generic ED Physician Electronically Signed By: MELLY MARKS
--- NOTE | ~2024-11-11 | XR_ITS ---
EXAMINATION: XR CHEST CLINICAL INFORMATION: chest pain COMPARISON: Chest 10/27/2024 TECHNIQUE: 2 views of the chest were obtained. FINDINGS: The lungs are hypoexpanded and clear. The heart size and pulmonary vascularity is normal. No gross bony abnormality seen. XR/XR chest 2V IMPRESSION: Hypoexpanded lungs. No acute process seen Electronically signed by: Jun Da Silva MD 11/11/2024 09:16 AM EDT RP
[2024-11-11 08:06] VITALS: BP 158/88; BP 160/74; PULSE 75; PULSE 82; RESP 12; TEMP 36.6; O2SAT 100; O2SAT 99; BMI 28.9
[2024-11-11 08:13] LABS: Glucose, Whole Blood 474 mg/dL (60-115)
--- NOTE | 2024-11-11 08:23 | ED_ITS ---
HPI - General Adult General Chief complaint: General Medical Stated complaint: HIGH BS, 521 AFTER HUMALOG DOSE,FROM [facility] Time Seen by Provider: 11/11/24 08:07 Source: patient and other (senior living program aide) Mode of arrival: EMS Limitations: other (mental disability) History of Present Illness ED Provider: TANIA ELIZABETH PA-C HPI narrative: 43 year-old male with pmhx of T1DM, pancreatitis, GERD, hypothyroid, hypercholesterolemia, down syndrome, renal insufficiency presents to the ED via EMS for elevated blood glucose reading >500 x this morning. Patient is accompanied by the skilled nursing program aide. Patient is from a skilled nursing and was given 14 units of insulin at 0730 after his blood sugar level was taken by his morning nurse. Patient reports mid chest pain x this morning. Pain localized to mid chest. No radiation. The program aide reports that his lanus was decreased from 15 to 11 units yesterday by facility provider and was given a small piece of cake last night which might have caused his elevated blood sugar levels. Per director, patient is at his baseline. Patient denies nausea, vomiting, abdominal pain, urinary sx. Related Data Home Medications ?Medication ?Instructions ?Recorded ?Confirmed insulin lispro 100 unit/mL 1 sliding scale dose subcut TIDAC 02/10/23 10/31/24 subcutaneous pen (Humalog KwikPen (U-100) Insulin) zinc oxide-cod liver oil 40 % 1 appl topical DAILY 02/10/23 10/31/24 topical paste (Desitin) ciclopirox 0.77 % topical cream 1 appl topical BID Foot Fungus 03/06/23 10/31/24 citalopram 20 mg tablet 20 mg PO DAILY 11/22/23 10/31/24 insulin glargine 100 unit/mL (3 13 unit subcut DAILY@1700 03/07/24 10/31/24 mL) subcutaneous pen (Lantus Solostar U-100 Insulin) blood sugar diagnostic (FreeStyle #10 ea 04/22/24 10/31/24 Lite Strips) pen needle, diabetic, safety 32 #100 ea 04/22/24 10/31/24 gauge x 5/32 (True Comfort Safety Pen Needle) diclofenac sodium 1 % topical gel 4 g topical Q6H PRN Foot Pain 04/24/24 10/31/24 pen needle, diabetic 33 gauge x #100 ea 07/25/24 10/31/24 5/32 (Comfort EZ Pen Swisshome) azithromycin 250 mg tablet 250 mg PO MOWEFR@199910/27/24 10/31/24 cetirizine 10 mg tablet 10 mg PO DAILY allergy symptoms 10/27/24 10/31/24 cholecalciferol (vitamin D3) 25 25 mcg PO DAILY 10/27/24 10/31/24 mcg (1,000 unit) tablet (Vitamin D3) dextromethorphan polistirex 30 10 ml PO BEDTIME PRN cough 10/27/24 10/31/24 mg/5 mL oral susp ext.release 12hr (Delsym 12 hour) ferrous sulfate 325 mg (65 mg 325 mg PO DAILY@1600 10/27/24 10/31/24 iron) tablet,delayed release glucose 4 gram chewable tablet 16 g PO Q15M PRN Hypoglycemia 10/27/24 10/31/24 metoprolol succinate 25 mg 25 mg PO BEDTIME 10/27/24 10/31/24 tablet,extended release 24 hr omeprazole 20 mg capsule,delayed 20 mg PO DAILY@0630 10/27/24 10/31/24 release peg 400-propylene glycol (PF) 0.4 1 drp ophthalmic (eye) QID PRN Dry 10/27/24 10/31/24 %-0.3 % eye drops in a dropperette Eye(S) (Systane (PF)) sodium zirconium cyclosilicate 5 5 g PO MOWEFR 10/27/24 10/31/24 gram oral powder packet (Lokelma) Previous Rx's ?Medication ?Instructions ?Recorded bisacodyl 5 mg tablet,delayed 10 mg (2 x 5 mg) PO BEDTIME #180 11/02/23 release (Dulcolax (bisacodyl)) tabs docusate sodium 100 mg capsule 200 mg (2 x 100 mg) PO BEDTIME 02/12/24 #180 caps nystatin 100,000 unit/gram topical 1 appl topical BID PRN groin rash 03/07/24 powder #60 grams ipratropium 0.5 mg-albuterol 3 mg 3 ml inhalation BID Cough 30 days 04/09/24 (2.5 mg base)/3 mL nebulization #180 mL soln bisacodyl 10 mg rectal suppository 10 mg ID DAILY PRN constipation 04/22/24 (Dulcolax (bisacodyl)) #30 ea acetaminophen 325 mg tablet 650 mg (2 x 325 mg) PO Q6H PRN 06/09/24 (Tylenol) pain #30 tabs ascorbic acid (vitamin C) 500 mg 500 mg PO DAILY #90 tabs 06/09/24 tablet (Vitamin C) folic acid 800 mcg tablet 0.8 mg PO DAILY #90 tabs 06/09/24 polyethylene glycol 3350 17 17 g PO DAILY #510 grams 06/18/24 gram/dose oral powder (Miralax) tamsulosin 0.4 mg capsule 0.8 mg (2 x 0.4 mg) PO DAILY@1700 07/04/24 90 days #180 caps amlodipine 5 mg tablet 5 mg PO DAILY #90 tabs 08/12/24 simvastatin 20 mg tablet 20 mg PO BEDTIME #30 tabs 09/24/24 famotidine 20 mg tablet (Pepcid) 20 mg PO BEDTIME #30 tabs 10/06/24 [id number] 1 cap PO QID #120 caps 10/21/24 24,000-76,000-120,000 unit capsule,delayed rel (Creon) aspirin 81 mg tablet,delayed 81 mg PO DAILY #90 tabs 10/24/24 release levofloxacin 750 mg tablet 750 mg PO Q48H #3 tabs 10/30/24 ondansetron 4 mg disintegrating 4 mg PO Q8H PRN nausea and 10/30/24 tablet vomiting #14 tabs levothyroxine 112 mcg tablet 112 mcg PO DAILY@0600 #30 tabs 11/10/24 Allergies Allergy/AdvReac Type Severity Reaction Status Date / Time Sulfa (Sulfonamide Allergy Intermediate ITCHING Verified 11/11/24 08:10 Antibiotics) [SULFA(SULFONAMIDE ANTIBIOTICS)] doxycycline AdvReac Intermediate Pancreatiti Verified 11/11/24 08:10 s Review of Systems 2 Review of Systems: Yes all other systems are reviewed and are negative PMFSH Past Medical History Attestation statement: The following information was validated with the patient. Source: old records reviewed and nursing notes reviewed Medical History Cellulitis Constipation Ascites Pericardial effusion Urethral meatal stenosis Mental and behavioral problem Renal insufficiency Hypercholesterolemia Down syndrome GERD (gastroesophageal reflux disease) BPH (benign prostatic hyperplasia) Hypothyroid Anxiety and depression Pseudoseizures Diabetes mellitus type 1 Surgical History Hx of cataract surgery Family History Family History Father Medical history unknown Mother Medical history unknown Maternal Grandfather Prostate cancer Social History Social History Household Members: Other Household Members Other:: skilled nursing Housing: Other Housing Other:: skilled nursing Do you presently have visiting nurse or other home services: No Unable to assess alcohol history related to: Unable to respond Alcohol intake: never Comment: 1:1 Sitter Patient Tobacco Use Status: Never used Tobacco e-Cigarette/Vaping Use: Never Used Second Hand Smoke Exposure: No Advance Directives: No Advance Directives Information Provided: No service: No Current occupational status: disabled Cognitive needs: No Hearing needs: No Vision needs: No Physical Exam ED Vital Signs: Vital Signs - 24 hr 11/11/24 08:06 11/11/24 11:27 Temperature 97.8 F 98.9 F Pulse Rate 75 64 Respiratory Rate 12 20 Blood Pressure 160/74 H 155/69 H Pulse Oximetry 100 98 Oxygen Delivery Method Room Air Room Air BMI result Body Mass Index 28.9 Blood glucose 474 @ 0802. Afebrile. General: Well appearing, in no acute distress. Skin: Warm, dry, intact. No rashes or lesions. Head: Normocephalic, atraumatic. EENT: Hearing is intact b/l. Conjunctiva clear. PERRLA. EOM intact. Moist mucous membranes.? Neck: Supple without LAD Cardiac: Chest wall symmetric. RRR Lungs: Normal respiratory effort without accessory muscle use. CTA bilaterally. No rales, rhonchi, or wheezes.? Abdomen: Soft, non-tender, non-distended. No rebound tenderness or guarding. Positive BS x4. Back: No midline spinous or paraspinal tenderness. No step off deformity. Ext: Upper and lower extremities atraumatic, without tenderness, deformity, swelling or erythema Neuro: AOx3. Normal speech. CN 2-12 grossly intact. Ambulating with steady gait Course Course Course Narrative: 09 -- CBC without leukocytosis or left shift. Normocytic anemia, H and H around baseline when compared to priors. Above transfusion threshold. Bicarb 27, otherwise WNL chemistry showing hyponatremia to 131. Acute on chronic kidney injury with BUN 45, creatinine 2.26. No anion gap. Random glucose 531, POC on arrival 474. troponin 6.6. UA showing high-protein, high glucose, no infection. Chest x-ray showing hyperexpanded lungs, no infiltrate or consolidation to suggest pneumonia. EKG showing normal sinus rhythm, rate 72 beats per minute, QT 420, QTC 459. > IV fluids, insulin ordered with plan to repeat levels 1348 -- patient has received a total of 2 L IV fluids and 5 of insulin. Repeat glucose 269 then 138. Now 74. He was given a sandwich and juice. He feels well. Chest pain has completely resolved. Repeat BMP shows improvement in kidney function, around patient's baseline CKD. No concern for JOSE. > I discussed all workup results with skilled nursing employee [employer], along with patient. Patient is relieved and ready to leave the ED. > given recent change in insulin yesterday along with consuming cake last night, likely lead to elevated blood sugar. I advised skilled nursing staff to continue his normal insulin dose at home. Patient has remained stable throughout ED visit today. Discussed worrisome signs and symptoms and when to return to the ED. All questions answered at this time. Patient is agreeable with disposition and stable for discharge. Medications Administered Discontinued Medications Generic Name Dose Route Start Last Admin Trade Name Freq PRN Reason Stop Dose Admin Sodium Chloride 1,000 mls @ 999 mls/hr 11/11/24 08:30 11/11/24 11:33 Ns IV 11/11/24 09:30 Infused .Q1H1M LINDA Infusion Sodium Chloride 1,000 mls @ 999 mls/hr 11/11/24 10:15 11/11/24 12:35 Ns IV 11/11/24 11:15 Infused .Q1H1M LINDA Infusion Insulin Human Regular 5 unit 11/11/24 08:22 11/11/24 08:40 Insulin Regular, Human 100 Unit/Ml 10 Ml Vial IVPUSH 11/11/24 08:23 5 unit ONCE ONE Administration Medical Decision Making Medical Decision Making MDM Narrative: 43 year-old male with pmhx of T1DM, pancreatitis, GERD, hypothyroid, hypercholesterolemia, down syndrome, renal insufficiency presents to the ED via EMS for elevated blood glucose reading >500 and chest pain x this morning. Mildly hypertensive, vitals otherwise WNL. He is nontoxic appearing in no acute distress. Physical exam is benign. Differential diagnosis includes DKA, HHS, pancreatitis, GERD, hyperglycemia, ACS, arrhythmia, anemia, electrolyte abnormality, dehydration Plan for labs, chest x-ray, EKG, IV fluids, insulin and re-evaluation Differential Diagnosis Differential Diagnoses: The differential diagnosis associated with the presentation includes As above Admission/Observation not indicated Lab Data MDM Lab Attestation statement: I reviewed the patient's lab results. As above 11/11/24 08:22 11/11/24 12:48 Labs: Lab Results 11/11/24 11/11/24 11/11/24 Range/Units 08:02 08:22 08:28 WBC 5.4 (4.8-10.8) X10*3/uL RBC 3.91 L (4.60-5.80) X10*6/uL Hgb 11.9 L (14.0-18.0) g/dl Hct 35.3 L (42.0-52.0) % MCV 90.3 (80.0-98.0) fL MCH 30.4 (27.0-33.0) pg MCHC 33.7 (31.0-36.0) g/dl RDW 14.0 (11.0-16.0) % Plt Count 413 H D (160-400) X10*3/uL MPV 8.9 L (9.4-12.4) fL Immature Gran % (Auto) 0.6 H (0.0-0.4) % Neut % (Auto) 70.3 (45-73) % Lymph % (Auto) 14.4 L (20-40) % [place]ade % (Auto) 6.6 (2-11) % Eos % (Auto) 7.0 H (0-4) % Baso % (Auto) 1.1 (0-2) % Lymph # (Auto) 0.8 L (1.2-4.9) X10*3/uL [place]ade # (Auto) 0.4 (0.1-1.2) X10*3/uL Eos # (Auto) 0.4 (0.0-0.4) X10*3/uL Baso # (Auto) 0.1 (0.0-0.2) X10*3/uL Abs Immat Gran (auto) 0.03 (0.00-0.03) X10*3/uL Absolute Neuts (auto) 3.8 (2.0-8.3) x10*3/uL Absolute Nucleated RBC 0.000 (0.0-0.012) X10*3/uL Nucleated RBC % (auto) 0.0 (0.0-0.2) /100WBC VBG pH 7.35 (7.32-7.43) VBG pCO2 48 mmHg VBG pO2 40 mmHg VBG HCO3 27 H (22-26) mmol/L VBG O2 Saturation 66.0 % VBG Base Excess 1.1 mmol/L Sodium 131 L (135-145) mmol/L Potassium 5.1 D (3.3-5.1) mmol/L Chloride 101 (96-108) mmol/L Carbon Dioxide 25 (22-29) mmol/L Anion Gap 10 L (12-20) BUN 45 H (9-16) mg/dL Creatinine 2.26 H (0.5-1.4) mg/dL Estim Creat Clear Calc 29.8 Estimated GFR 32 POC Glucose 474 H* (60-115) mg/dL Random Glucose 531 H* (60-115) mg/dL Calcium 8.3 L (8.4-10.2) mg/dL Magnesium 1.9 (1.6-2.6) mg/dL Total Bilirubin 0.2 (0.0-1.0) mg/dL AST 18 (5-37) U/L ALT 23 (0-40) U/L Alkaline Phosphatase 88 (39-117) U/L Troponin I High Sens 6.6 (<3.5-35.0) ng/L Total Protein 5.6 L (6.5-8.0) g/dL Albumin 2.4 L (3.5-5.0) g/dL Lipase 22 (8-78) U/L Beta-Hydroxybutyrate 0.29 H (0.02-0.27) mmol/L Urine Color Urine Appearance Urine pH (5.0-9.0) Ur Specific [place] (1.005-1.025) Urine Protein (Neg-Trace) mg/dL Urine Glucose (UA) (Negative) mg/dL Urine Ketones (Negative) mg/dL Urine Blood (Negative) Urine Nitrite (Negative) Ur Leukocyte Esterase (Negative) Urine RBC (0-2) /HPF Urine WBC (0-5) /HPF Ur Squamous Epith Cells (0-2) /HPF Urine Bacteria (None Seen) Hyaline Casts (0-2) /LPF 11/11/24 11/11/24 11/11/24 Range/Units 08:45 09:41 11:35 WBC (4.8-10.8) X10*3/uL RBC (4.60-5.80) X10*6/uL Hgb (14.0-18.0) g/dl Hct (42.0-52.0) % MCV (80.0-98.0) fL MCH (27.0-33.0) pg MCHC (31.0-36.0) g/dl RDW (11.0-16.0) % Plt Count (160-400) X10*3/uL MPV (9.4-12.4) fL Immature Gran % (Auto) (0.0-0.4) % Neut % (Auto) (45-73) % Lymph % (Auto) (20-40) % Dade % (Auto) (2-11) % Eos % (Auto) (0-4) % Baso % (Auto) (0-2) % Lymph # (Auto) (1.2-4.9) X10*3/uL [place]ade # (Auto) (0.1-1.2) X10*3/uL Eos # (Auto) (0.0-0.4) X10*3/uL Baso # (Auto) (0.0-0.2) X10*3/uL Abs Immat Gran (auto) (0.00-0.03) X10*3/uL Absolute Neuts (auto) (2.0-8.3) x10*3/uL Absolute Nucleated RBC (0.0-0.012) X10*3/uL Nucleated RBC % (auto) (0.0-0.2) /100WBC VBG pH (7.32-7.43) VBG pCO2 mmHg VBG pO2 mmHg VBG HCO3 (22-26) mmol/L VBG O2 Saturation % VBG Base Excess mmol/L Sodium (135-145) mmol/L Potassium (3.3-5.1) mmol/L Chloride (96-108) mmol/L Carbon Dioxide (22-29) mmol/L Anion Gap (12-20) BUN (9-16) mg/dL Creatinine (0.5-1.4) mg/dL Estim Creat Clear Calc Estimated GFR POC Glucose 269 H 138 H (60-115) mg/dL Random Glucose (60-115) mg/dL Calcium (8.4-10.2) mg/dL Magnesium (1.6-2.6) mg/dL Total Bilirubin (0.0-1.0) mg/dL AST (5-37) U/L ALT (0-40) U/L Alkaline Phosphatase (39-117) U/L Troponin I High Sens (<3.5-35.0) ng/L Total Protein (6.5-8.0) g/dL Albumin (3.5-5.0) g/dL Lipase (8-78) U/L Beta-Hydroxybutyrate (0.02-0.27) mmol/L Urine Color Yellow Urine Appearance Clear Urine pH 6.0 (5.0-9.0) Ur Specific [place] 1.015 (1.005-1.025) Urine Protein >=1000 (4+) H (Neg-Trace) mg/dL Urine Glucose (UA) >=1000 H (Negative) mg/dL Urine Ketones Negative (Negative) mg/dL Urine Blood Trace H (Negative) Urine Nitrite Negative (Negative) Ur Leukocyte Esterase Negative (Negative) Urine RBC 0-2 (0-2) /HPF Urine WBC 0-5 (0-5) /HPF Ur Squamous Epith Cells 0-2 (0-2) /HPF Urine Bacteria None Seen (None Seen) Hyaline Casts 0-2 (0-2) /LPF 11/11/24 11/11/24 Range/Units 12:48 12:53 WBC (4.8-10.8) X10*3/uL RBC (4.60-5.80) X10*6/uL Hgb (14.0-18.0) g/dl Hct (42.0-52.0) % MCV (80.0-98.0) fL MCH (27.0-33.0) pg MCHC (31.0-36.0) g/dl RDW (11.0-16.0) % Plt Count (160-400) X10*3/uL MPV (9.4-12.4) fL Immature Gran % (Auto) (0.0-0.4) % Neut % (Auto) (45-73) % Lymph % (Auto) (20-40) % [place] % (Auto) (2-11) % Eos % (Auto) (0-4) % Baso % (Auto) (0-2) % Lymph # (Auto) (1.2-4.9) X10*3/uL [place] # (Auto) (0.1-1.2) X10*3/uL Eos # (Auto) (0.0-0.4) X10*3/uL Baso # (Auto) (0.0-0.2) X10*3/uL Abs Immat Gran (auto) (0.00-0.03) X10*3/uL Absolute Neuts (auto) (2.0-8.3) x10*3/uL Absolute Nucleated RBC (0.0-0.012) X10*3/uL Nucleated RBC % (auto) (0.0-0.2) /100WBC VBG pH (7.32-7.43) VBG pCO2 mmHg VBG pO2 mmHg VBG HCO3 (22-26) mmol/L VBG O2 Saturation % VBG Base Excess mmol/L Sodium 140 (135-145) mmol/L Potassium 4.2 (3.3-5.1) mmol/L Chloride 113 H (96-108) mmol/L Carbon Dioxide 24 (22-29) mmol/L Anion Gap 7 L (12-20) BUN 37 H (9-16) mg/dL Creatinine 1.70 H (0.5-1.4) mg/dL Estim Creat Clear Calc 39.6 Estimated GFR 44 POC Glucose 74 (60-115) mg/dL Random Glucose 65 (60-115) mg/dL Calcium 7.6 L D (8.4-10.2) mg/dL Magnesium (1.6-2.6) mg/dL Total Bilirubin (0.0-1.0) mg/dL AST (5-37) U/L ALT (0-40) U/L Alkaline Phosphatase (39-117) U/L Troponin I High Sens (<3.5-35.0) ng/L Total Protein (6.5-8.0) g/dL Albumin (3.5-5.0) g/dL Lipase (8-78) U/L Beta-Hydroxybutyrate (0.02-0.27) mmol/L Urine Color Urine Appearance Urine pH (5.0-9.0) Ur Specific [place] (1.005-1.025) Urine Protein (Neg-Trace) mg/dL Urine Glucose (UA) (Negative) mg/dL Urine Ketones (Negative) mg/dL Urine Blood (Negative) Urine Nitrite (Negative) Ur Leukocyte Esterase (Negative) Urine RBC (0-2) /HPF Urine WBC (0-5) /HPF Ur Squamous Epith Cells (0-2) /HPF Urine Bacteria (None Seen) Hyaline Casts (0-2) /LPF Independent Interpretation I performed an independent interpretation of an: EKG and Plain X-Ray Interpretation: Chest x-ray without infiltrate or consolidation EKG showing normal sinus rhythm, rate of 72 beats per minute, no acute ischemic changes or ST elevations Radiology Impression Discussion of test interpretation with radiology: I have reviewed the radiologist's reading. Radiologist Impression: Date of Service: 11/11/24 Procedure(s): XR chest 2V Accession Number(s): [id number] cc: Boris Mcgowan MD; Tania Elizabeth~ EXAMINATION: XR CHEST CLINICAL INFORMATION: chest pain COMPARISON: Chest 10/27/2024 TECHNIQUE: 2 views of the chest were obtained. FINDINGS: The lungs are hypoexpanded and clear. The heart size and pulmonary vascularity is normal. No gross bony abnormality seen. XR/XR chest 2V IMPRESSION: Hypoexpanded lungs. No acute process seen Independent Historian Clinical information obtained from an independent historian. History obtained from or confirmed by: Other (senior living director) External Record Review External record reviewed: Inpatient record Chronic Conditions Patient?s care impacted by: Diabetes Social Determinants Patient?s care significantly limited by Social Determinants of Health including: Other Social Determinant of Health Critical Care Time Critical Care Time Critical Care Time: Yes Total Critical Care Time: 31 Attestation: Critical care time in the amount of 31 minutes has been provided to the patient in terms of direct patient care, frequent reevaluation on IV insulin, review and interpretation of medical data and results, and management of potentially life- threatening conditions. This is all outside of any medical procedures. Discharge Plan Discharge Clinical Impression: Hyperglycemia due to type 1 diabetes mellitus Patient Disposition: Home, Self-Care Instructions: What is Insulin (ED), Diabetes Type 1: Management (ED) Additional Instructions: Bernard was evaluated in the ED today for elevated blood sugar. His blood sugar improved with IV fluids and insulin. His blood work is otherwise reassuring. Chest x-ray and EKG are both normal. I recommend going back to his normal insulin amount (15, not 11). This decrease in insulin is likely what led to his hyperglycemia. Continue all other home meds as prescribed. Follow up with PCP. Please return with any new or worsening symptoms. In the case of an emergency call 911. Prescriptions: No Action docusate sodium 100 mg capsule 200 mg PO BEDTIME Qty: 180 3RF insulin glargine [Lantus Solostar U-100 Insulin] 100 unit/mL (3 mL) insulin pen 13 unit subcut DAILY@1700 ipratropium-albuterol 0.5 mg-3 mg(2.5 mg base)/3 mL solution for nebulization 3 ml INHALATION BID 30 Days Qty: 180 6RF Rx Instructions: rinse/wash mouth after each use polyethylene glycol 3350 [Miralax] 17 gram/dose powder 17 g PO DAILY Qty: 510 2RF tamsulosin 0.4 mg capsule 0.8 mg PO DAILY@1700 90 Days Qty: 180 1RF amlodipine 5 mg tablet 5 mg PO DAILY Qty: 90 1RF simvastatin 20 mg tablet 20 mg PO BEDTIME Qty: 30 4RF famotidine [Pepcid] 20 mg tablet 20 mg PO BEDTIME Qty: 30 3RF Creon 24,000-76,000 -120,000 unit capsule,delayed release(DR/EC) 1 cap PO QID Qty: 120 2RF Rx Instructions: administer with meals and/or snacks aspirin 81 mg tablet,delayed release (DR/EC) 81 mg PO DAILY Qty: 90 0RF Rx Instructions: take with food levothyroxine 112 mcg tablet 112 mcg PO DAILY@0600 Qty: 30 5RF insulin lispro [Humalog KwikPen Insulin] 100 unit/mL insulin pen 1 sliding scale dose subcut TIDAC Protocol: Insulin Correction Scale Less than or equal to 110 ---- Give (units): 0 111 to 150 Give (units): 0 151 to 200 Give (units): 2 201 to 250 Give (units): 4 251 to 300 Give (units): 6 301 to 350 Give (units): 8 Greater than 350 Give (units): 10 Call MD if Blood Glucose > : 350 Desitin 40 % Paste 1 appl TOPICAL DAILY Rx Instructions: small amount daily after shower topically to head of penis citalopram 20 mg tablet 20 mg PO DAILY glucose 4 gram Tablet,Chewable 16 g PO Q15M PRN (Reason: Hypoglycemia) Rx Instructions: until symptoms of low blood sugar are controlled Systane (PF) 0.4-0.3 % Dropperette 1 drp OPHTHALMIC (EYE) QID PRN (Reason: Dry Eye(S)) cholecalciferol (vitamin D3) [Vitamin D3] 25 mcg (1,000 unit) Tablet 25 mcg PO DAILY dextromethorphan polistirex [Delsym 12 hour] 30 mg/5 mL suspension,extended rel 12 hr 10 ml PO BEDTIME PRN (Reason: cough) cetirizine 10 mg tablet 10 mg PO DAILY azithromycin 250 mg tablet 250 mg PO MOWEFR@2000 omeprazole 20 mg capsule,delayed release(DR/EC) 20 mg PO DAILY@0630 metoprolol succinate 25 mg tablet extended release 24 hr 25 mg PO BEDTIME Protocol: Hold for SBP< HOLD for SBP < : 90 ferrous sulfate 325 mg (65 mg iron) tablet,delayed release (DR/EC) 325 mg PO DAILY@1600 Rx Instructions: 325 mg orally once a day at 4 pm; Lokelma 5 gram powder in packet 5 g PO MOWEFR Rx Instructions: 5 grams orally 3 times a week( every SUN,SUN,Fridays); Mix with water. ondansetron 4 mg tablet,disintegrating 4 mg PO Q8H PRN (Reason: nausea and vomiting) Qty: 14 0RF levofloxacin 750 mg Tablet 750 mg PO Q48H Qty: 3 0RF ciclopirox 0.77 % cream 1 appl topical BID nystatin 100,000 unit/gram powder 1 appl topical BID PRN (Reason: groin rash) Qty: 60 0RF (DME) pen needle, diabetic [Comfort EZ Pen Swisshome] 33 gauge x 5/32 needle See Rx Instructions .ROUTE .MEDSUPPLY Qty: 100 Rx Instructions: As directed bisacodyl [Dulcolax (bisacodyl)] 5 mg tablet,delayed release (DR/EC) 10 mg PO BEDTIME Qty: 180 4RF diclofenac sodium 1 % gel 4 g topical Q6H PRN (Reason: Foot Pain) Rx Instructions: apply to single knee, ankle, foot; for foot includes sole/toes/top of foot (DME) True Comfort Safety Pen Needle 32 gauge x 5/32 needle See Rx Instructions .ROUTE .MEDSUPPLY Qty: 100 Rx Instructions: As directed (DME) FreeStyle Lite Strips Strip See Rx Instructions .ROUTE QID Qty: 10 Rx Instructions: As directed bisacodyl [Dulcolax (bisacodyl)] 10 mg suppository 10 mg ID DAILY PRN (Reason: constipation) Qty: 30 0RF acetaminophen [Tylenol] 325 mg tablet 650 mg PO Q6H PRN (Reason: pain) Qty: 30 5RF ascorbic acid (vitamin C) [Vitamin C] 500 mg tablet 500 mg PO DAILY Qty: 90 1RF folic acid 800 mcg tablet 0.8 mg PO DAILY Qty: 90 3RF Referrals: Juan M,Boris Mack MD [Primary Care Provider] - Print Language: Unable To Collect
[2024-11-11 08:26] LABS: MANUAL DIFF FLAG NO
[2024-11-11 08:31] LABS: VBG Base Excess 1.1 mmol/L; VBG HCO3 27 mmol/L (22-26); VBG pCO2 48 mmHg; VBG pH 7.35 (7.32-7.43); VBG pO2 40 mmHg
[2024-11-11 08:32] LABS: Basophils Absolute Auto 0.1 X10*3/uL (0.0-0.2); Basophils Percent Auto 1.1 % (0-2); Eosinophils Absolute Auto 0.4 X10*3/uL (0.0-0.4); Hematocrit 35.3 % (42.0-52.0); Hemoglobin 11.9 g/dl (14.0-18.0); Imm Gran Abs Auto 0.03 X10*3/uL (0.00-0.03); Imm Gran Pct Auto 0.6 % (0.0-0.4); Lymphocytes Absolute Auto 0.8 X10*3/uL (1.2-4.9); Lymphocytes Percent Auto 14.4 % (20-40); Mean Corpuscular HGB Conc 33.7 g/dl (31.0-36.0); Mean Corpuscular Hemoglobin 30.4 pg (27.0-33.0); Mean Corpuscular Volume 90.3 fL (80.0-98.0); Mean Platelet Volume 8.9 fL (9.4-12.4); Monocytes Absolute Auto 0.4 X10*3/uL (0.1-1.2); Monocytes Percent Auto 6.6 % (2-11); Neutrophils Absolute Auto 3.8 x10*3/uL (2.0-8.3); Neutrophils Percent Auto 70.3 % (45-73); Platelet Count 413 X10*3/uL (160-400); Red Blood Count 3.91 X10*6/uL (4.60-5.80); White Blood Count 5.4 X10*3/uL (4.8-10.8)
[2024-11-11 08:32] LABS: Venous Blood Gas Refer to POC result
[2024-11-11] MEDS: Insulin Regular, Human 100 UNIT/ML 10 ML VIAL IVPUSH (08:40)
[2024-11-11] MEDS: 0.9 % Sodium Chloride 1,000 ML 999 ML IV ×2 (08:41→11:33)
[2024-11-11 08:51] LABS: Alanine Aminotransferase 23 U/L (0-40); Albumin Level 2.4 g/dL (3.5-5.0); Alkaline Phosphatase 88 U/L (39-117); Anion Gap 10 (12-20); Aspartate Amino Transferase 18 U/L (5-37); Bilirubin Total 0.2 mg/dL (0.0-1.0); Blood Urea Nitrogen 45 mg/dL (9-16); Calcium 8.3 mg/dL (8.4-10.2); Carbon Dioxide 25 mmol/L (22-29); Chloride 101 mmol/L (96-108); Creatinine Clr Calc Pharmacy 29.8; Estimated Glomerular Filt Rate 32; Glucose Random 531 mg/dL (60-115); Lipase 22 U/L (8-78); Magnesium 1.9 mg/dL (1.6-2.6); Potassium 5.1 mmol/L (3.3-5.1); Sodium 131 mmol/L (135-145); Total Protein 5.6 g/dL (6.5-8.0)
--- OUTSIDE RECORDS SUMMARY | 2024-11-11 08:53 | XMS_ITS | Data Portability ---
Author Organization [place] - [facility] Address [address] [place] [address] Care Team Providers Care Telecommunication Engineer Name Role Phone TASHANATANAEL Primary Care Provider Assessment Encounter Date Assessment Date Assessment LastModified by Organization Details LastModified Time 05/18/2020 05/18/2020 Overview/Histo ry: This is a 39-year-old male, new to [employer], phone calls with complaints of testicular/pen is pain. Patient resides in a custodial. This past medical history includes hypertension, high cholesterol, diabetes, GERD, anxiety and mood disorder. 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 He states he has been having burning pain with urination although cannot give details as to how long this has been going on for a period he does not give any details to other urinary symptoms that he may be experiencing. He does admit to generalized abdominal pain and points to the middle of his stomach. He states his last bowel movement was today. He does not give much detail in regards to the exam questions. Exam: Staff was not present during my exam, patient is cognitively delayed at baseline so difficult to obtain information Neuro at baseline, A&O x2. Face symmetric. Vital signs stable, afebrile Lung sounds clear throughout, equal next time apical-regular , strong. 2+ radial bilaterally ABD-soft, moderately distended, nontender, positive bowel sounds throughout. No CVA tenderness noted. No suprapubic tenderness noted. Genital exam-performed with grease maker head as listed in physical exam notes. No rash, wounds, sores noted on bilateral groins, penis or testicles. Nontender to palpation. NO edema or erythema noted. DDx considered, but not limited to: UTI Gonorrhea Chlamydia Genital warts Candidus of the skin - All possible given the vague complaints of penile pain and burning. Urinalysis results negative findings no acute infection noted. Skin was intact, no open wounds, sores, rash noted unable to obtain information in regards to sexual intercourse. Work up/Results: urine dipstick - no acute findings indicative of infection, + protein Plan/Discussio n: No signs of infection noted on urinalysis Urine culture obtained and will be sent to lab No abnormal findings on physical exam Encouraged patient to monitor for pain Time On Scene with Patient: 00:15:28 Not available 05/18/2020 17:53:51 Plan of Treatment Reminders Order Date Submit Date Provider Last Modified By Organization Details Last Modified Time Details Appointments None recorded. Lab urinalysis, dipstick 2019 [facility], [address] [place] [address], [phone], 0 17:56:19 culture, urine - [facility] (Centralized Electronic Ordering - All Locations), Patient Can Go To The Location Of Their Choice, 0 21:04:00 Referral None recorded. Procedures None recorded. Surgeries None recorded. Imaging None recorded. Medication Orders None recorded. Patient TargetsNo targets recorded. Patient InstructionsNo instructions recorded. Reason for Referral None Reported. Results Created Date Observation Date Name Description Value Unit Range Abnormal Flag Note LastModifiedBy Organization Detail LastModifiedTime 05/18/2005/18/2020 cultu re, urine specimen description URINE Not Available [facility] (Centralized Electronic Ordering - All Locations) Patient Can Go To The Location Of Their Choice, 05/19/2020 21:04:00 05/18/20 20 05/18/2020 cultu re, urine special requests NONE Not Available [facility] (Centralized Electronic Ordering - All Locations) Patient Can Go To The Location Of Their Choice, 05/19/2020 21:04:00 05/18/20 20 05/19/2020 cultu re, urine culture NO GROWTH Not Available [facility] (Centralized Electronic Ordering - All Locations) Patient Can Go To The Location Of Their Choice, [id number] 05/19/2020 21:04:00 05/18/20 20 05/19/2020 cultu re, urine report status FINAL 2019 Not Available [facility] (Centralized Electronic Ordering - All Locations) Patient Can Go To The Location Of Their Choice, [id number] 05/19/2020 21:04:00 05/18/2005/18/2020 urina lysis , dipst ick Appearance clear Not Available [facility] [address] [place], [address], 05/18/2020 17:54:49 05/18/2005/18/2020 urina lysis , dipst ick Color yellow Not Available [facility] [address] [place], [address], 05/18/2020 17:54:49 05/18/2005/18/2020 urina lysis , dipst ick Glucose positi ve Not Available [facility] [address] [place], [address], 05/18/2020 17:54:49 05/18/2005/18/2020 urina lysis , dipst ick Bilirubin negati ve Not Available [facility] [address] [place], [address], 05/18/2020 17:54:49 05/18/2005/18/2020 urina lysis , dipst ick Ketones NEG Not Available [facility] [address] [place], [address], 05/18/2020 17:54:49 05/18/2005/18/2020 urina lysis , dipst ick Sp. [place] 1.020 Not Available [facility] [address] [place], [address], 05/18/2020 17:54:49 05/18/2005/18/2020 urina lysis , dipst ick Blood NEG Not Available [facility] [address] [place], [address], 05/18/2020 17:54:49 05/18/20 20 05/18/2020 urina lysis , dipst ick pH 5.0 Not Available [facility] [address] [place], [address], 05/18/2020 17:54:49 05/18/2005/18/2020 urina lysis , dipst ick Protein positi ve Not Available [facility] [address] [place], [address], 05/18/2020 17:54:49 05/18/2005/18/2020 urina lysis , dipst ick Urobilirubin negati ve Not Available [facility] [address] [place], [address], 05/18/2020 17:54:49 05/18/2005/18/2020 urina lysis , dipst ick Nitrites NEG Not Available [facility] [address] [place], [address], 05/18/2020 17:54:49 05/18/20 20 05/18/2020 urina lysis , dipst ick Leukocytes NEG Not Available [facility] [address] [place], [address], 05/18/2020 17:54:49 Result Notes None recorded. Medical Equipment None Reported. Allergies Allergen ID Allergen Name Allergen Category Reaction Reaction Severity Criticality Documentation Date Start Date Code Code System Note Provider Name and Address Organization Details Recorded Time 662015 Substance with sulfonami de structure and antibacte rial mechanism of action (substanc e) medicatio n Not available Not available Not available 05/18/2020 04698 8003 SNOMED FREDO SCOTT NP [address] [place], [address], [place] - [facility] 0 17:40:39 Medications Name Sig Start Date Stop Date Status Note LastModified by Organization Details LastModified Time ultra-care alcohol prep pads 70 % pads active Not Available Not Available No t Available benefiber pow grams TAKE 1 TABLESPOO N EVERY MORNING IN HOT CHOCOLATE OR DRINK OF CHOICE active Not Available Not Available No t Available ultracare pen needles/32g x 1/14 32g x 6 mm misc active Not Available Not Available Not Available ipratropium 0.5 mg-albutero l 3 mg (2.5 mg base)/3 mL nebulizatio n soln INHALE 3 ML (1 VIAL) TWICE A DAY VIA NEBULIZAT ION active Not Available Not Available No t Available famotidine 10 mg tablet TAKE 1 TABLET BY MOUTH TWICE DAILY active Not Available Not Available No t Available divalproex 250 mg tablet,candi yed release TAKE 1 TABLET BY MOUTH EVERY MORNING active Not Available Not Available No t Available Vitamin C 500 mg tablet TAKE 1 TABLET BY MOUTH EVERY MORNING active Not Available Not Available No t Available cetirizine 10 mg tablet TAKE 1 TABLET BY MOUTH EVERY MORNING active Not Available Not Available No t Available azithromyci n 250 mg tablet 05/18 completed Not Available Not Available Not Available Glucagon Emergency Kit 1 mg solution for injection active Not Available Not Available No t Available FreeStyle Lancets 28 gauge USE TO TEST UP TO 8 TIMES DAILY active Not Available Not Available No t Available divalproex 500 mg tablet,candi yed release TAKE 1 TABLET BY MOUTH EVERY EVENING active Not Available Not Available No t Available aspirin 81 mg tablet,candi yed release TAKE 1 TABLET BY MOUTH EVERY MORNING active Not Available Not Available No t Available levothyroxi ne 100 mcg tablet TAKE 1 TABLET BY MOUTH EVERY DAY active Not Available Not Available No t Available citalopram 20 mg tablet TAKE 1 TABLET BY MOUTH EVERY MORNING active Not Available Not Available No t Available lorazepam 0.5 mg tablet active Not Available Not Available Not Available DOK 100 mg capsule TAKE 1 CAPSULE BY MOUTH TWICE DAILY active Not Available Not Available No t Available tamsulosin 0.4 mg capsule TAKE 2 CAPSULES BY MOUTH EVERY DAY AT 5PM - TAKE 30 MINUTES AFTER THE SAME MEAL EACH DAY active Not Available Not Available No t Available simvastatin 5 mg tablet active Not Available Not Available Not Available divalproex ER 500 mg tablet,exte nded release 24 hr active Not Available Not Available Not Available glucose 4 gram chewable tablet CHEW 4 TABLETS BY MOUTH ONCE NEEDED FOR LOW BLOOD GLUCOSE (<70 OR SYMPTOMS) active Not Available Not Available No t Available ibuprofen 400 mg tablet 05/18 completed Not Available Not Available Not Available lisinopril 5 mg tablet active Not Available Not Available Not Available ferrous sulfate 325 mg (65 mg iron) tablet,candi yed release TAKE 1 TABLET BY MOUTH EVERY MORNING active Not Available Not Available No t Available Vitamin D3 25 mcg (1,000 unit) tablet TAKE 1 TABLET BY MOUTH EVERY MORNING active Not Available Not Available No t Available Alcohol Prep Pads USE TO TEST BLOOD SUGAR 4 TIMES A DAY. MAY ALSO TEST UP TO 5 TIMES A DAY NEEDED WELL. active Not Available Not Available No t Available Lantus Solostar U-100 Insulin 100 unit/mL (3 mL) subcutaneou s pen active Not Available Not Available Not Available Humalog KwikPen (U-100) Insulin 100 unit/mL subcutaneou s active Not Available Not Available Not Available Desitin Rapid Relief 13 % topical cream USE DIRECTED FOR IRRITATED AND SCARRED MEATUS DAILY AFTER SHOWER active Not Available Not Available No t Available Embrace TALK test strips USE TO TEST 4 TIMES A DAY AT 8AM , NOON, 4PM, AND AT BEDTIME. MAY ALSO TEST UP TO 5 TIMES A DAY NEEDED WELL. active Not Available Not Available No t Available Ultracare Pen Needle 32 gauge x 1/4 USE TO INJECT INSULIN FOUR TIMES DAILY active Not Available Not Available No t Available Flucelvax Quad 60 mcg (15 mcg x 4)/0.5 mL intramuscul ar susp DIRECTED 05/18 completed Not Available Not Available Not Available Vitals Date Recorded Oxygen saturation Oxygen saturation in Arterial blood by Pulse oximetry Respiratory rate Body temperature Heart rate Systolic blood pressure Diastolic blood pressure Provider Name and Address Organization Details Last Updated DateTime 0 98 % 98 % 14 /min 98.5 [degF] 82 /min 108 mm[Hg] 76 mm[Hg] Not Available [facility] 0 17:23:33 Social History None recorded. Functional Status None recorded. Mental Status None recorded. Family History Nothing Reported Notes:unable to obtain - pat ient does not know Medical History No medical history recorded. Past Encounters Encounter ID Performer Location Encounter Start Date Encounter Closed Date Diagnosis/Indication Diagnosis SNOMED-CT Code Diagnosis ICD10 Code Diagnosis Note [id number] FREDO SCOTT NP [facility] [address] [place] [address], [place] [address] 05/18/2020 17:20:56 05/19/2020 14:17:14 Pain in penis 130935739 N48.89 Health Concerns Section Related Observation LastModified by Organization Detai ls LastModified Time None Recorded Concern Status LastModified by Organization Details LastModified Time None Recorded Advance Directives Directive None Recorded Payers Encounter Date Sequence Insurance Name Policy Number Policy Celeste Covered Member ID Celeste Member ID Guarantor Name 05/18/2020 1 [place]ARE B-[place]: [employer] Bernard Navarro [id number] Bernard Navarro 05/18/2020 2 MED[place]ID-[place]: [facility] Bernard Navarro [id number] Bernard Navarro Notes Date Note Type Note Provider Name and Address Organization Details Recorded Time 05/18/2020 text/html This is a 39-year-old male, new to [employer], who is a staff members call with concerns for testicular pain. This patient resides in a custodial setting. His past medical history includes hypertension, diabetes, GERD, depression, mood disorder, agitation and high cholesterol. The patient is cognitively delayed at baseline. The staff members were not present through exam. The patient states he has had burning with urination although unable to describe how often or for how long. He also states he has generalized abdominal pain. He states his last bowel movement was today. FREDO SCOTT, AMBER [address] [place], [address], [place] [facility] 05/18/2020 17:56:38
--- OUTSIDE RECORDS SUMMARY | 2024-11-11 08:53 | XMS_ITS | Clinical Summary ---
Author Organization [facility] Address [address] [address] Care Team Providers Care Grain Elevator Superintendent Name Role Phone Boris Mcgowan MD Primary Care Provider [phone] Allergies No known active allergies Medications aspirin [...] Health Maintenance Due Date Last Done Comments Hepatitis B Vaccine (1 of 3 - 19+ 3-dose series) 11/24 Pneumococcal Vaccine: Peds ( 0 to 5 Years) and At-Risk Patients (6 to 49 Years) (1 of 2 - PCV) 11/25/1999 Diabetes: Hemoglobin A1C 08/23/2020 Diabetes: Ophthalmology Exam 08/23/2020 Diabetes: Pedal Pulse Checked 08/23/2020 Diabetes: Sensory Foot Exam 08/23/2020 Diabetes: Visual Foot Exam 08/23/2020 Influenza Vaccine (Season Ended) 2025 Insurance Medicare Medicaid [place] Medicare Medicaid [place] Care Teams Grain Elevator Superintendent Relationship Specialty Start Date End Date Boris Mcgowan MD [address] [place] PCP - General 08/02/20
[2024-11-11 08:55] LABS: Troponin-I High Sensitivity 6.6 ng/L (<3.5-35.0)
[2024-11-11 08:56] LABS: Appearance Urine Clear; Color Urine Yellow; Glucose Urine UA >=1000 mg/dL (Negative); Leukocyte Esterase Urine Negative (Negative); Nitrite Urine Negative (Negative); Specific Gravity - Urine 1.015 (1.005-1.025); UMIC TRIGGER UACC YES; Urine Blood Trace (Negative); Urine Ketones Negative (Negative); Urine Protein >=1000 (4+) mg/dL (Neg-Trace)
--- NOTE | 2024-11-11 08:59 | PC.NURSE ---
Away at radiology for imaging. This RN received report from JYOTSNA Weller and assumes care of this patient at this time.
[2024-11-11 09:09] LABS: Bacteria Urine None Seen (None Seen); Hyaline Casts Urine 0-2 /LPF (0-2); RBC Urine 0-2 /HPF (0-2); Squamous Epithelial Cell Urine 0-2 /HPF (0-2); WBC Urine 0-5 /HPF (0-5)
[2024-11-11 09:27] LABS: Beta-Hydroxybutyrate 0.29 mmol/L (0.02-0.27)
--- NOTE | 2024-11-11 09:41 | PC.NURSE ---
Patient ambulated out of bed to bathroom and back without difficulty. long term staff member at bedside. Reconnected to IV fluids. IV access to right AC is patent/intact/flushes with ease.
[2024-11-11 10:02] LABS: Glucose, Whole Blood 269 mg/dL (60-115)
[2024-11-11 11:27] VITALS: BP 155/69; PULSE 64; RESP 20; TEMP 37.2; O2SAT 98
--- NOTE | 2024-11-11 11:35 | PC.NURSE ---
Resumed care of patient at 1130, IVF hung tht was over due, POC rechecked and was 138. Pt denies any complaints at this time. Staff remains at bedside.
[2024-11-11 11:40] LABS: Glucose, Whole Blood 138 mg/dL (60-115)
[2024-11-11 12:56] LABS: Glucose, Whole Blood 74 mg/dL (60-115)
[2024-11-11 13:08] LABS: Anion Gap 7 (12-20); Blood Urea Nitrogen 37 mg/dL (9-16); Calcium 7.6 mg/dL (8.4-10.2); Carbon Dioxide 24 mmol/L (22-29); Chloride 113 mmol/L (96-108); Creatinine Clr Calc Pharmacy 39.6; Estimated Glomerular Filt Rate 44; Glucose Random 65 mg/dL (60-115); Potassium 4.2 mmol/L (3.3-5.1); Sodium 140 mmol/L (135-145)
[2024-11-11 14:05] VITALS: BP 155/69; PULSE 64; RESP 20; TEMP 37.2; O2SAT 98
== END 2024-11-11 14:06 | disposition home or self-care (01) ==
PROVIDERS: Physician Assistant Medical; Emergency Provider Emergency Medicine; PCP Internal Medicine
DX: E10.65 Type 1 diabetes mellitus with hyperglycemia (principal); R07.89 Other chest pain; R11.0 Nausea; D64.9 Anemia, unspecified; I10 Essential (primary) hypertension; Z79.4 Long term (current) use of insulin; Z79.899 Other long term (current) drug therapy
CPT/HCPCS: 36415; 71046; 80048; 80053; 81001; 82010; 82803; 82947; 83690; 83735; 84484; 85025; 93005; 96361; 96374; 99284; 99285

== ENCOUNTER → 2024-11-11 08:05 | Outpatient (BNV) | payer MEDICARE, MEDICAID, SELFPAY | PROVIDERS: Emergency Provider Emergency Medicine; PCP Internal Medicine; Visit Provider Internal Medicine | DX: R07.9 Chest pain, unspecified (principal) | CPT/HCPCS: 93010 ==

== ENCOUNTER → 2024-11-11 08:23 | Outpatient (BNV) | payer MEDICARE, MEDICAID, SELFPAY | PROVIDERS: Emergency Provider Emergency Medicine; PCP Internal Medicine; Visit Provider Radiology Diagnostic Radiology | DX: R07.9 Chest pain, unspecified (principal) | CPT/HCPCS: 71046 ==

== ENCOUNTER 2024-11-14 16:09 | Outpatient (REF) | payer MEDICARE, MEDICAID, SELFPAY ==
--- OUTSIDE RECORDS SUMMARY | 2024-11-14 16:19 | XMS_ITS ---
Author Organization [facility] Address [address] [facility] [place] [address] Care Team Providers Care Field Recorder Name Role Phone Boris Mcgowan Primary Care Provider Yaz Ramirez Unavailable [phone] Allergies Allergen (clinical drug ingredient) Drug/Non Drug [...] in water Orally Active MiraLax Active Ipratropium [place] Active Lantus 100 UNIT/ML as directed Subcutaneous 15 units Active Glucose 4 GM PRN Orally Active Ferrous Sulfate 325 (65 Fe) MG 1 tablet Orally every day Active Folic Acid 800 MCG 1 tablet Orally Once a day for 30 day(s) Active Dulcolax Active Docusate Sodium Acti ve Cetirizine HCl 10 MG 1 tablet Orally Once a day for 30 day(s) Active Creon 24289-15087 UNIT as directed Orally Active Aspirin 81 [...] Ordered Date Performed Result Body Sit e 93815-MXYHJIN NAIL, 6 OR MORE 09/09/2024 N/A 50235-ELEK SKIN LESIONS, OVER 4 09/09/2024 N/A Encounters Encounter Location Date Provider Diagnosis [facility] [address] 09/09/2024 Yaz Black Tinea unguium B35.1 ; [...] days Pending Test Test Name Order Date 21477-VXKTHDX NAIL, 6 OR MORE 09/09/2024 95059-VUPU SKIN LESIONS, OVER 4 09/09/19 Next Appt Details Follow Up: prn, Reason: Provider Name:Yaz Kimbrough , 12/16/2024 03:30:00 PM, [address] [facility], [place], [address], Procedure Notes * Category Sub-Category Detail Notes [...] use of a nail nipper and/or dremel-type hob grinder, to a more viable healthy nail [...] to maintain effectiveness in symptomatic relief - 09059 Keratoma Treatment Parring or Cutting o f [...] instrumentation by the physician of record - 43644 Progress Notes * Bernard NAVARRODOEdith:1980 ([age] yo M)Acc No.[id number]:09/09/2024 Progress Note Patient:?Bernard NAVARRO Provider:?Yaz Kimbrough DPM :1980???Age:43 Y???Sex:Male Sanjay e:09/09/2024 Address:[address] [place], [place] [id number] Pcp:Boris Mcgowan Subjective: * Chief Complaints: * [...] 1 tablet Orally Once a day Creon 57341-48821 UNIT Capsule Delayed Release Particles as directed Orally Desitin Docusate Sodium Dulcolax Ferrous Sulfate 325 (65 Fe) MG Tablet 1 tablet Orally every day Folic Acid 800 MCG Tablet 1 tablet Orally Once a day Glucose 4 GM Tablet Chewable PRN Orally HumaLOG , Notes to Pharmacist: sliding scaleIpratropium [place] Lantus 100 UNIT/ML Solution as directed Subcutaneous [...] tablet Orally Once a day Taking Creon 78435-11037 UNIT Capsule Delayed Release Particles as directed Orally Taking Desitin Taking Docusate Sodium Taking Dulcolax Taking Ferrous Sulfate 325 (65 Fe) MG Tablet 1 tablet Orally every day Taking Folic Acid 800 MCG Tablet 1 tablet Orally Once a day Taking Glucose 4 GM Tablet Chewable PRN Orally Taking HumaLOG , Notes to Pharmacist: sliding scaleTaking Ipratropium [place] Taking Lantus 100 UNIT/ML Solution as directed [...] 2.?Type 1 diabetes mellitus with diabetic polyneuropathy?Procedure: 81593-CNCS SKIN LESIONS, OVER 4 3.?Tinea pedis of [...] use of a nail nipper and/or dremel-type hob grinder, to a more viable healthy nail [...] to maintain effectiveness in symptomatic relief - 22687.?Keratoma Treatment:?Parring or Cutting of Benign Hyperkeratotic Lesion(s)?(-57) [...] instrumentation by the physician of record - 74396.? * Procedure Codes:?95972 DEBRI DE NAIL, 6 OR MORE, Modifiers: XS 37650 TRIM SKIN LESIONS, OVER 4, Modifiers: XS [...] Kimbrough DPM Date:?2024 Generated for Glendy wright/Lita/eTransmitting on:?11/14/2024 04:19 PM EDT History and Physical Notes * [...]
--- OUTSIDE RECORDS SUMMARY | 2024-11-14 16:19 | XMS_ITS ---
Author Organization [facility] Address [address] [place] [address] Care Team Providers Care Wire Transfer Clerk Name Role Phone Boris Mcgowan Primary Care Provider Yaz Ramirez [phone] REASON FOR VISIT No Show Encounters Encounter Location Date Provider Diagnosis [address] [address] 07/10/2024 Yaz Kimbrough Plan Of Treatment Next Appt Details Provider Name:Yaz Parvez Kimbrough , 12/16/2024 03:30:00 PM, [address] [facility], [place], [address], Progress Notes * Bernard NAVARRODOB:1980 ([age] yo M)Acc No.[id number]:07/10/2024 Patient:?ANGELLA Bernard :1980???Age:43 Y???Sex:Male Address:[address] [place] [address], [address] * true * Date:? Generated for Printi ng/Fayonasg/eTransmitting on:?11/14/2024 04:18 PM EDT
--- OUTSIDE RECORDS SUMMARY | 2024-11-14 16:19 | XMS_ITS | Clinical Summary ---
Author Organization [facility] Facility Address [address] [address] Care Team Providers Care Wind Turbine Service Technician Name Role Phone Boris Mcgowan MD Primary Care Provider [phone] Allergies No known active allergies Medications aspirin [...] Medicaid [place] Care Teams Wind Turbine Service Technician Relationship Specialty Start Date End Date Boris Mcgowan MD [address] [place] PCP - General 08/02/20
--- OUTSIDE RECORDS SUMMARY | 2024-11-14 16:19 | XMS_ITS ---
Author Organization [facility] Address [address] [place] [address] Care Team Providers Care Casino Investigator Name Role Phone Boris Mcgowan Primary Care Provider Yaz Ramirez Unavailable [phone] REASON FOR VISIT Medications Encounters Encounter Location Date Provider Diagnosis [address] [address] 10/03/2024 Yaz Kimbrough Plan Of Treatment Next Appt Details Provider Name:Yaz Parvez Kimbrough , 12/16/2024 03:30:00 PM, [address] [facility], [place], [address], Progress Notes * Bernard NAVARRODOB:1980 ([age] yo M)Acc No.[id number]:10/03/2024 Patient:?Bernard NAVARRO :1980???Age:43 Y???Sex:Male Address:[address] [place] [address], [address] * true * Date:? Generated for Printi ng/Faxing/eTransmitting on:?11/14/2024 04:19 PM EDT
--- OUTSIDE RECORDS SUMMARY | 2024-11-14 16:19 | XMS_ITS | Data Portability ---
Author Organization [place] - Pending sale to [facility] Address [address] [place] [id number] Care Team Providers Care Construction Lineman Name Role Phone TASHANATANAEL Primary Care Provider Assessment Encounter Date Assessment Date Assessment LastModified by Organization Details LastModified Time 05/18/2020 05/18/2020 Overview/Histo ry: This is a 39-year-old male, new to [employer], phone calls with complaints of testicular/pen is pain. Patient resides in a intermediate. This past medical history includes hypertension, high [...] No suprapubic tenderness noted. Genital exam-performed with research laboratory manager as listed in physical exam notes. No [...] pain Time On Scene with Patient: 00:15:28 [email or web address] Not available 05/18/2020 17:53:51 Plan of Treatment Reminders Order Date Submit Date Provider Last Modified By Organization Details Last Modified Time Details Appointments None recorded. Lab urinalysis, dipstick 2019 [email or web address] [facility], [address] [place] [address], [address], 0 17:56:19 culture, urine - [facility] by [facility] 2019 LAUREN [facility] (Centralized Electronic Ordering - [...] Go To The Location Of Their Choice, [id number] 05/19/2020 21:04:00 05/18/20 20 05/19/2020 cultu re, urine report status FINAL 2019 Not Available [facility] (Centralized Electronic Ordering - All Locations) Patient Can Go To The Location Of Their Choice, [id number] 05/19/2020 21:04:00 05/18/2005/18/2020 urina lysis , dipst ick Appearance clear Not Available [facility] [address] [place], [address], 05/18/2020 17:54:49 05/18/2005/18/2020 urina lysis , dipst ick Color yellow Not Available [facility] [address] [place], [address], 05/18/2020 17:54:49 05/18/2005/18/2020 urina lysis , dipst ick Glucose positi ve Not Available [facility] [address] [place], [address], 05/18/2020 17:54:49 05/18/2005/18/2020 urina lysis , dipst ick Bilirubin negati ve Not Available [facility] [address] [place], [address], 05/18/2020 17:54:49 05/18/2005/18/2020 urina lysis , dipst ick Ketones NEG Not Available [facility] [address] [place], [address], 05/18/2020 17:54:49 05/18/2005/18/2020 urina lysis , dipst ick Sp. Reliance 1.020 Not Available [facility] [address] [place], [address], 05/18/2020 17:54:49 05/18/2005/18/2020 urina lysis , dipst ick Blood NEG Not Available [facility] [address] [place], [address], 05/18/2020 17:54:49 05/18/20 20 05/18/2020 urina lysis , dipst ick pH 5.0 Not Available [facility] [address] [place], [address], 05/18/2020 17:54:49 05/18/2005/18/2020 urina lysis , dipst ick Protein positi ve Not Available [facility] [address] [place], [address], 05/18/2020 17:54:49 05/18/2005/18/2020 urina lysis , dipst ick Urobilirubin negati ve Not Available [facility] [address] [place], [address], 05/18/2020 17:54:49 05/18/2005/18/2020 urina lysis , dipst ick Nitrites NEG Not Available [facility] [address] [place], [address], 05/18/2020 17:54:49 05/18/20 20 05/18/2020 urina lysis , dipst ick Leukocytes NEG Not Available [facility] [address] [place], [address], 05/18/2020 17:54:49 Result Notes None recorded. Medical Equipment None Reported. Allergies Allergen ID Allergen Name Allergen Category Reaction Reaction Severity Criticality Documentation Date Start Date Code Code System Note Provider Name and Address Organization Details Recorded Time 419176 Substance with sulfonami de structure and antibacte rial mechanism of action (substanc e) medicatio n Not available Not available Not available 05/18/2020 00962 8003 SNOMED FREDO SCOTT NP [address] [place], [address], [place] [facility] 17:40:39 [...] SNOMED-CT Code Diagnosis ICD10 Code Diagnosis Note [id number] FREDO SCOTT NP [facility] [address] [place] [address], [place] [address] 05/18/2020 17:20:56 05/19/2020 14:17:14 Pain in penis 341725918 N48.89 Health Concerns Section Related Observation LastModified by Organization Detai ls LastModified Time None Recorded Concern Status LastModified by Organization Details LastModified Time None Recorded Advance Directives Directive None Recorded Payers Encounter Date Sequence Insurance Name Policy Number Policy Celeste Covered Member ID Celeste Member ID Guarantor Name 05/18/2020 1 [place] [employer] Bernard Navarro [id number] Bernard Navarro 05/18/2020 2 [place] [facility] Bernard Navarro [id number] Bernard Navarro Notes Date Note Type Note Provider Name and Address Organization Details Recorded Time 05/18/2020 text/html This is a 39-year-old male, new to [employer], who is a staff members call with concerns for testicular pain. This patient resides in a intermediate setting. His past medical history includes hypertension, [...] was today. FREDO SCOTT, AMBER [address] [place], [address], [place] [facility] 05/18/2020 17:56:38
--- OUTSIDE RECORDS SUMMARY | 2024-11-14 16:19 | XMS_ITS | Patient Health Record ---
Author Organization [facility] Address [address] [place] [address] Care Team Providers Care Health Plan Specialist Name Role Phone Boris Mcgowan Primary Care Provider Yaz Ramirez Unavailable [phone] Allergies Allergen (clinical drug ingredient) Drug/Non Drug [...] a day for 30 day(s) Active Creon 10415-40203 UNIT as directed Orally Active Aspirin 81 [...] in water Orally Active MiraLax Active Ipratropium Cutler Active Lantus 100 UNIT/ML as directed Subcutaneous [...] Status Risk Notes Problem Acquired hallux valgus (49214207) Hallux valgus (acquired), left foot (M20.12) Active confirmed Problem Acquired hallux valgus (32386411) Hallux valgus (acquired), right foot (M20.11) Active confirmed Problem Acquired hallux valgus (51306571) Hallux valgus (acquired), right foot (M20.11) Active confirmed Problem Acquired hammer toe of right foot (9049882356910150 ) Other hammer toe(s) (acquired), right foot (M20.41) Active confirmed Problem Acquired hammer toe of left foot (7416389226197904 ) Other hammer toe(s) (acquired), left foot (M20.42) Active confirmed Problem Polyneuropathy due to diabetes mellitus type I (629622220) Type 1 diabetes mellitus with diabetic polyneuropathy (E10.42) Active confirmed Problem Arthritis (4503372) Arthritis (M19.90) Active confirmed Vital Signs Blood pressure diastolic 71 mm Hg 09/09/2024 Height 4ft 9in in 09/09/2024 Blood pressure systolic 120 mm Hg 09/09/2024 Weight 132 lbs 09/09/2024 BMI 28.56 kg/m2 09/09/2024 Procedures Procedure Date Ordered Date Performed Result Body Sit e 84780-NQLICSN NAIL, 6 OR MORE 01/07/2024 N/A 43190-JWNJ SKIN LESIONS, OVER 4 01/07/2024 N/A 00176-XDAWKSA NAIL, 6 OR MORE 04/04/2024 N/A 91797-LIBP SKIN LESIONS, OVER 4 04/04/2024 N/A 07698-VQFMTIO NAIL, 6 OR MORE 09/09/2024 N/A 60386-LEPL SKIN LESIONS, OVER 4 09/09/2024 N/A Encounters Encounter Location Date Provider Diagnosis [address] [address] 01/07/2024 Yaz Kimbrough Hallux valgus (acquired), right [...] of right foot M77.51 and Arthritis M19.[address] [address] 04/04/2024 Yaz Black Tinea unguium B35.1 and Type 1 diabetes mellitus with diabetic polyneuropathy E10.[address] [address] 09/09/2024 Yaz Black Tinea unguium B35.1 ; Hallux valgus (acquired), right foot M20.11 ; Type 1 diabetes mellitus with diabetic polyneuropathy E10.42 ; Tinea pedis of both feet B35.3 ; Pain in right ankle and joints of right foot M25.571 ; Bursitis of right foot M77.51 and Arthritis M19.[address] [address] 03/11/2024 Yazjorge alberto Kimbrough [address] [address] 03/25/2024 Yaz Kimbrough [address] [address] 07/10/[address] [address] 10/03/2024 Yaz Kimbrough Assessments Encounter Date Diagnosis [...] Treatment Pending Test Test Name Order Date 88832-FVMFCBR NAIL, 6 OR MORE 02/03/2021 94535-AUJXBAC NAIL, 6 OR MORE 05/23/2021 89355-KOQOXLK NAIL, 6 OR MORE 09/22/2021 19706-WKMTLIX NAIL, 6 OR MORE 04/27/2022 26281-FFJUKGY NAIL, 6 OR MORE 08/14/2022 34479-SNGITYF NAIL, 6 OR MORE 01/30/2022 92786-KGLTTRR NAIL, 6 OR MORE 11/23/2022 34107-EVVUKMU NAIL, 6 OR MORE 03/08/2023 40492-EWRJKVA NAIL, 6 OR MORE 06/21/2023 92627-CBIJUPR NAIL, 6 OR MORE 09/27/2023 83444-YOOMBCH NAIL, 6 OR MORE 01/07/2024 68204-AXSVJSV NAIL, 6 OR MORE 04/04/2024 34693-BZJAQCR NAIL, 6 OR MORE 09/09/2024 31068-ZDTF SKIN LESIONS, OVER 4 09/09/19 25 62227-VSTM SKIN LESIONS, OVER 4 04/04/20 24 29114-QTDW SKIN LESIONS, OVER 4 06/21/20 23 83499-OGZJ SKIN LESIONS, OVER 4 01/07/20 24 20907-TAIA SKIN LESIONS, OVER 4 09/27/19 24 78121-RAPN SKIN LESIONS, OVER 4 03/08/20 23 18085-VJDP SKIN LESIONS, OVER 4 08/14/19 23 89302-IERE SKIN LESIONS, OVER 4 11/24/19 23 57071-IKSS SKIN LESIONS, 2 TO 4 01/31/20 22 47722-GRME SKIN LESIONS, 2 TO 4 04/27/20 22 88596, K8368-CCABP/INJECT, JOINT/BURSA 1 08/21/2022 40700, Y9517-YEAOG/INJECT, JOINT/BURSA 0 09/27/2023 Next Appt Details Provider Name:Yaz Hannon Luis E , 12/16/2024 03:30:00 PM, [address] [facility], [place], [address], Insurance Providers Payer Name Payer Address Payer Phone Subscriber Number Group Number Insured Name Patient Relationship to Insured Coverage Start Date Coverage End Date Medicare National [employer] [address] [place] [address] [id number] Bernard Navarro Self - patient is the insured Medical (General) History Medical History History ICD Code type I diabetes - brittle diabetic Hypothyroidism Vitamin D deficiency Down's syndrome depressive disorder Impulse Control disorder Periodontal disease Cholesterol Reflux Hypertension Low kidney function Surgical History Surgery Date(Month/Year) bunionectomy- right foot Tooth extraction x4 06/26/23, 07/10/23 Hospitalization History Reason Date(Month/Year) [facility] [place] [facility] [place]- Yeast Infection - Diabetic Ketoa cidosis (DKA) 02/15/23 [facility] [place] [place] elevated sugar 01/2022
[2024-11-14] MEDS: gadobutroL 7.5 ML VIAL IVPUSH (17:10)
== END 2024-11-14 16:10 | disposition home or self-care (01) ==
LOC: HO.MRI 16:09
PROVIDERS: PCP Internal Medicine; Visit Provider Student in an Organized Health Care Education/Training Program
DX: K85.90 Acute pancreatitis without necrosis or infection, unspecified (principal)
CPT/HCPCS: 74183; A9585

== ENCOUNTER → 2024-11-14 16:27 | Outpatient (BNV) | payer MEDICARE, MEDICAID, SELFPAY | PROVIDERS: PCP Internal Medicine; Visit Provider Radiology Diagnostic Radiology | DX: K85.90 Acute pancreatitis without necrosis or infection, unspecified (principal) | CPT/HCPCS: 74183 ==

== ENCOUNTER 2025-01-01 09:55 | Outpatient (REF) | payer MEDICARE, MEDICAID, SELFPAY ==
[2025-01-01 10:46] LABS: Anion Gap 11 (12-20); Blood Urea Nitrogen 50 mg/dL (9-16); Calcium 8.4 mg/dL (8.4-10.2); Carbon Dioxide 23 mmol/L (22-29); Chloride 108 mmol/L (96-108); Estimated Glomerular Filt Rate 27; Glucose Random 108 mg/dL (60-115); Potassium 4.5 mmol/L (3.3-5.1); Sodium 137 mmol/L (135-145)
== END 2025-01-01 09:56 | disposition home or self-care (01) ==
LOC: HO.LAB 09:55
PROVIDERS: PCP Internal Medicine; Visit Provider Internal Medicine Hypertension Specialist
DX: E87.5 Hyperkalemia (principal); N18.9 Chronic kidney disease, unspecified
CPT/HCPCS: 36415; 80048; 99212

== ENCOUNTER 2025-01-01 13:46 | Outpatient (AMB) | payer MEDICARE, MEDICAID, SELFPAY ==
[2025-01-01 13:49] VITALS: BP 162/70; PULSE 70; O2SAT 99; BMI 28.3
--- NOTE | 2025-01-01 13:49 | HO.NEPHOV ---
Vital Signs 01/01/25 13:49 Height 4 ft 9 in Weight 131 lb BMI 28.3 BP 162/70 H Blood Pressure Location Lt brachial Position Sitting Pulse 70 Pulse Source Pulse Oximeter Pulse Oximetry (%) 99 Oxygen Delivery Method Room Air Intake Visit Reasons: CKD/Conf Senior Accounting Analyst Required: No Accompanied by: GUEST SERVICE AIDE Allergies Sulfa (Sulfonamide Antibiotics) [SULFA(SULFONAMIDE ANTIBIOTICS)] Allergy (Intermediate, Verified 01/01/25 13:50) ITCHING doxycycline Adverse Reaction (Intermediate, Verified 01/01/25 13:50) Pancreatitis Medication List - Last Reconciled 01/01/25 by Pineda Tarango MD acetaminophen (Tylenol) 650 mg (2 x 325 mg) PO Q6H PRN amlodipine 5 mg PO DAILY ascorbic acid (vitamin C) (Vitamin C) 500 mg PO DAILY aspirin 81 mg PO DAILY azithromycin 250 mg PO MOWEFR@2000 bisacodyl (Dulcolax (bisacodyl)) 10 mg (2 x 5 mg) PO BEDTIME bisacodyl (Dulcolax (bisacodyl)) 10 mg IN DAILY PRN blood sugar diagnostic (FreeStyle Lite Strips) As directed cetirizine 10 mg PO DAILY cholecalciferol (vitamin D3) (Vitamin D3) 25 mcg PO DAILY ciclopirox 0.77% 1 appl topical BID citalopram 20 mg PO DAILY dextromethorphan polistirex ER (Delsym 12 hour) 10 mL PO BEDTIME PRN diclofenac sodium 1% 4 grams topical Q6H PRN docusate sodium 200 mg (2 x 100 mg) PO BEDTIME famotidine (Pepcid) 20 mg PO BEDTIME ferrous sulfate 325 mg PO DAILY@1600 folic acid 0.8 mg PO DAILY glucose 16 grams PO Q15M PRN insulin glargine (Lantus Solostar U-100 Insulin) 13 units subcut DAILY@1700 insulin lispro (Humalog KwikPen (U-100) Insulin) 1 sliding scale dose See Protocol subcut TIDAC ipratropium-albuterol 0.5 mg-3 mg(2.5 mg base)/3 mL 3 mL inhalation BID 30 days levofloxacin 750 mg PO Q48H levothyroxine 112 mcg PO DAILY@0600 ytmbra-imlljitc-ictjsbm 24,000-76,000 -120,000 unit (Creon) 1 cap PO QID lorazepam 0.5 mg orally 1-2 tabs prn 1 hour before the procedure PRN; metoprolol succinate ER 25 mg See Protocol PO BEDTIME nystatin 1 appl topical BID PRN omeprazole 20 mg PO DAILY@0630 ondansetron 4 mg PO Q8H PRN peg 400-propylene glycol (PF) 0.4-0.3 % (Systane (PF)) 1 drp ophthalmic (eye) QID PRN pen needle, diabetic (Comfort EZ Pen [place]) As directed pen needle, diabetic, safety (True Comfort Safety Pen Needle) As directed polyethylene glycol 3350 (Miralax) 17 grams PO DAILY simvastatin 20 mg PO BEDTIME sodium zirconium cyclosilicate (Lokelma) 5 grams PO MOWEFR tamsulosin 0.8 mg (2 x 0.4 mg) PO DAILY@1700 90 days zinc oxide-cod liver oil 40 % (Desitin) 1 appl topical DAILY HPI Comments Details: Bernard has been referred for evaluation of chronic disease and hyperkalemia. Bernard is well known to me. He has previously seen in 2020. He has a history of Down syndrome and diabetes mellitus complicated by chronic disease. He has significant proteinuria in the setting of longstanding diabetes medicine the working diagnosis is diabetic kidney disease. Serum creatinine has been fluctuating between 1.5 and 1.7 mg/dL. Recently serum creatinine was found to be at 2.0. He has also had recurrent episodes of hyperkalemia. Last month potassium was 5.7 however about a week ago potassium was 2.0. He has been referred for further evaluation. He is being followed by urology for BPH and a history of meatal stenosis. In the past he had no evidence of obstructive uropathy based on imaging studies. Today was accompanied by caregiver. No specific complaints today. No nausea vomiting. No diarrhea constipation. He is on MiraLax and has bowel movements every day. No shortness of breath cough or expectoration. No urine symptoms. No edema no fever no rash. 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 He has recently been treated for pancreatitis and experienced an adverse reaction to Doxocycline An alternative antibiotic regimen was initiated, leading to significant health improvement. Upon discharge, he was placed on both an antibiotic, which has been completed, and an antiemetic for suspected drug-induced nausea. He reports a recent decline in his kidney function based on lab results, though imaging studies performed, including MRI and CT scans, indicate no structural kidney disease.No obstruction His current medication regimen, which the patient follows diligently, includes drugs such as Amlodipine, Vitamin D, and Metoprolol. Bump in creatinine post pancreatitis [facility] Medical History Cellulitis Constipation Ascites Pericardial effusion Urethral meatal stenosis Mental and behavioral problem Renal insufficiency Hypercholesterolemia Down syndrome GERD (gastroesophageal reflux disease) BPH (benign prostatic hyperplasia) Hypothyroid Anxiety and depression Pseudoseizures Diabetes mellitus type 1 Surgical History Hx of cataract surgery Family History Father Medical history unknown Mother Medical history unknown Maternal Grandfather Prostate cancer Social History Household Members: Other Household Members Other:: correction Housing: Other Housing Other:: correction Do you presently have visiting nurse or other home services: No Unable to assess alcohol history related to: Unable to respond Alcohol intake: never Comment: 1:1 Sitter Patient Tobacco Use Status: Never used Tobacco e-Cigarette/Vaping Use: Never Used Second Hand Smoke Exposure: No service: No Current occupational status: disabled Cognitive needs: No Hearing needs: No Vision needs: No Physical Exam Vital Signs: Last Vital Signs Pulse 70 01/01/25 13:49 BP 162/70 H 01/01/25 13:49 Pulse Ox 99 01/01/25 13:49 Oxygen Delivery Method Room Air 01/01/25 13:49 BMI result Body Mass Index 28.3 GI Other: Adb - soft Non tender BS normal Results Reviewed Nephrology Results: Hgb 11.9 g/dl (14.0-18.0) L 11/11/24 WBC 5.4 X10*3/uL (4.8-10.8) 11/11/24 Plt Count 413 X10*3/uL (160-400) H 11/11/24 Sodium 137 mmol/L (135-145) 01/01/25 Potassium 4.5 mmol/L (3.3-5.1) 01/01/25 Chloride 108 mmol/L (96-108) 01/01/25 Carbon Dioxide 23 mmol/L (22-29) 01/01/25 BUN 50 mg/dL (9-16) H 01/01/25 Creatinine 2.56 mg/dL (0.5-1.4) H 01/01/25 Calcium 8.4 mg/dL (8.4-10.2) 01/01/25 Urine Protein >=1000 (4+) mg/dL (Neg-Trace) H 11/11/24 Assessment & Plan Assessment & Plan (1) Hyperkalemia: Code(s): E87.5 - Hyperkalemia Category: Medical (2) Renal insufficiency: Code(s): N28.9 - Disorder of kidney and ureter, unspecified Category: Medical (3) CKD (chronic kidney disease): Code(s): N18.9 - Chronic kidney disease, unspecified Category: Medical Plan . 43-year-old man with Down syndrome and longstanding diabetes mellitus has chronic disease. gradual increase in creatinine with hyperkalemia. CKD is probably due to diabetic kidney disease. Nephrotic range proteinria history of meatal stenosis and phimosis Watch for urinary retention Clinically there is no evidence of obstruction at this time. Being followed by Urology Renal ultrasound reported normal Was on low-dose of ADRIANA-inhibitor for renal protection. Stopped due to Hyperkalemia and LOW BP Goal is to slow the progression of kidney disease Continue to avoid nephrotoxic agents including NSAIDs. Bump in BUN /Cr post pancreatitis Possible hypoperfusion No obstruction based on recent USG/CT Hyperkalemia is due to decreased potassium excretion in the setting of CKD. Needs to stay on low-potassium diet Keep Lokelma 5 g to be taken 3 times a week. 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
== END 2025-01-01 14:03 | disposition home or self-care (01) ==
LOC: HO.HKA 13:46
PROVIDERS: PCP Internal Medicine; Visit Provider Internal Medicine Hypertension Specialist
DX: E87.5 Hyperkalemia (principal); N18.9 Chronic kidney disease, unspecified
CPT/HCPCS: 99214

== ENCOUNTER 2025-01-20 11:43 | Outpatient (AMB) | payer MEDICARE, MEDICAID, SELFPAY ==
--- NOTE | 2025-01-20 11:46 | MHC.OFFVIS ---
Intake Visit Reasons: 3m/US Intake Note: Patient presents today for follow up on: urethral stenosis, neurogenic bladder, BPH Urology Medications: Tamsulosin Antibiotic Allergy: Sulfa Antibiotics Blood Thinner: Aspirin Pharmacy: [facility] PVR: 30ml's Oracle Adf Developer Required: No Accompanied by: Unknown Allergies Sulfa (Sulfonamide Antibiotics) (SULFA(SULFONAMIDE ANTIBIOTICS)) Allergy (Intermediate, Verified 01/20/25 13:01) ITCHING doxycycline Adverse Reaction (Intermediate, Verified 01/20/25 13:01) Pancreatitis Medication List - Last Reconciled 01/20/25 by LISETTE Barrera acetaminophen (Tylenol) 650 mg (2 x 325 mg) PO Q6H PRN amlodipine 5 mg PO DAILY ascorbic acid (vitamin C) (Vitamin C) 500 mg PO DAILY aspirin 81 mg PO DAILY azithromycin 250 mg PO MOWEFR@2000 Held on 10/30/24. Instructions: Resume on 11/05/24. bisacodyl (Dulcolax (bisacodyl)) 10 mg (2 x 5 mg) PO BEDTIME bisacodyl (Dulcolax (bisacodyl)) 10 mg NV DAILY PRN blood sugar diagnostic (FreeStyle Lite Strips) As directed cetirizine 10 mg PO DAILY cholecalciferol (vitamin D3) (Vitamin D3) 25 mcg PO DAILY ciclopirox 0.77% 1 appl topical BID citalopram 20 mg PO DAILY dextromethorphan polistirex ER (Delsym 12 hour) 10 mL PO BEDTIME PRN diclofenac sodium 1% 4 grams topical Q6H PRN docusate sodium 200 mg (2 x 100 mg) PO BEDTIME famotidine (Pepcid) 20 mg PO BEDTIME ferrous sulfate 325 mg PO DAILY@1600 folic acid 0.8 mg PO DAILY glucose 16 grams PO Q15M PRN insulin glargine (Lantus Solostar U-100 Insulin) 13 units subcut DAILY@1700 insulin lispro (Humalog KwikPen (U-100) Insulin) 1 sliding scale dose See Protocol subcut TIDAC ipratropium-albuterol 0.5 mg-3 mg(2.5 mg base)/3 mL 3 mL inhalation BID 30 days levothyroxine 112 mcg PO DAILY@0600 yvyiyr-jdgfwwdo-axuprye 24,000-76,000 -120,000 unit (Creon) 1 cap PO QID lorazepam 0.5 mg orally 1-2 tabs prn 1 hour before the procedure PRN; metoprolol succinate ER 25 mg See Protocol PO BEDTIME nystatin 1 appl topical BID PRN omeprazole 20 mg PO DAILY@0630 ondansetron 4 mg PO Q8H PRN peg 400-propylene glycol (PF) 0.4-0.3 % (Systane (PF)) 1 drp ophthalmic (eye) QID PRN pen needle, diabetic (Comfort EZ Pen [place]) As directed pen needle, diabetic, safety (True Comfort Safety Pen Needle) As directed polyethylene glycol 3350 (Miralax) 17 grams PO DAILY simvastatin 20 mg PO BEDTIME sodium zirconium cyclosilicate (Lokelma) 5 grams PO MOWEFR tamsulosin 0.8 mg (2 x 0.4 mg) PO DAILY@1700 90 days zinc oxide-cod liver oil 40 % (Desitin) 1 appl topical DAILY HPI Comments Details: Bernard is a very pleasant 44 year old male patient of Dr Mcgowan who was accompanied by career development manager. He has a past medical history of cellulitis, constipation, ascites, pericardial effusion, urethral meatal stenosis, mental and behavioral problem, renal insufficiency, hypercholesteremia, Down syndrome, GERD, hypothyroidism, anxiety, depression, pseudoseizures, and type 1 diabetes. He presents to the office today for follow-up of his lower urinary tract symptoms and incomplete bladder emptying. During last office visit approximately 3 months ago patient was started on doxycycline for prostatitis as RUDI noted boggy prostate. However 2-3 days after taking the medication he started experiencing abdominal discomfort and seeked emergency room care at which time he was diagnosed with pancreatitis. He has since been discharged and feeling well. He had been treated with levofloxacin that was renally dosed and has since completed therapy as prescribed. In assessment of the patient today he does continue to report episodes of intermittent dysuria. However he is vague throughout today's assessment. He is not a good historian and staff can only relay what he says. Religious Educator and patient report compliance with Flomax as prescribed. In office urinalysis results reviewed with the patient today. We did discussed potential causes of dysuria as well as further workup. In assessment of the patient today the penis is circumcised and meatus appears narrowed/stenosed. PVR today 30 mL. We did discussed dilation however patient becomes tearful in does not wish to attempt dilation. He does continue to follow-up with nephrology regarding proteinuria. He denies nocturia, hematuria, foul smelling urine, changes to urinary stream, flank pain, fever, and or chills. He otherwise offers no other issues or concerns at this time. [facility] Medical History Cellulitis Constipation Ascites Pericardial effusion Urethral meatal stenosis Mental and behavioral problem Renal insufficiency Hypercholesterolemia Down syndrome GERD (gastroesophageal reflux disease) BPH (benign prostatic hyperplasia) Hypothyroid Anxiety and depression Pseudoseizures Diabetes mellitus type 1 Surgical History Hx of cataract surgery Family History Father Medical history unknown Mother Medical history unknown Maternal Grandfather Prostate cancer Social History Household Members: Other Household Members Other:: care home Housing: Other Housing Other:: care home Do you presently have visiting nurse or other home services: No Unable to assess alcohol history related to: Unable to respond Alcohol intake: never Comment: 1:1 Sitter Patient Tobacco Use Status: Never used Tobacco e-Cigarette/Vaping Use: Never Used Second Hand Smoke Exposure: No service: No Current occupational status: disabled Cognitive needs: No Hearing needs: No Vision needs: No Review of Systems Const Unobtainable due to mental condition Physical Exam Const General: cooperative, healthy appearing, comfortable, no acute distress, well developed, alert and awake Orientation/consciousness: oriented to person Limitations: no limitations HEENT Head: Yes normal to inspection Ears: hearing grossly normal bilaterally Neck Neck: Yes normal visual inspection and Yes trachea midline Chest Chest palpation & inspection: normal inspection of the chest Resp Effort & Inspection: normal respiratory effort and able to speak in complete sentences Cardio Rate: regular rate GI Inspection: Yes normal to inspection General: Yes no CVA tenderness Penis: normal penis and circumcised Meatus: other (As per HPI) Scrotum: scrotum normal Testes: Testes normal Back/Spine/Pelvis Back: no CVA tenderness Skin General skin exam: no rashes or lesions noted Neuro General: oriented to person Extrem General: Yes normal to inspection Psych Appearance: well kempt Speech and movement: Normal speech and movement present and Clear speech present Affect: normal affect Attitude: cooperative Insight: Limited insight present (Psych) Judgement: Limited judgement present (Psych) Office Procedures Post Void Residual Post Residual Void Post Void Residual (PVR): 30 [id number] Void Residual by ultrasound Results AMB Urinalysis, Automated UA Leukoctes 0 Allyssa/uL Last Edit by Selina Chowdary [facility] on 01/20/25 12:14 UA Nitrite Last Edit by Selina Chowdary [facility] on 01/20/25 12:14 UA Urobilinogen 0.2 mg/dL Last Edit by Selina Chowdary [facility] on 01/20/25 12:14 UA Protein 300 mg/dL [facility] on 01/20/25 12:14 UA pH 5.5 Last Edit by Selina Chowdary [facility] on 01/20/25 12:14 UA Blood 10 Philippe/uL Last Edit by [facility] on 01/20/25 12:14 UA Specific [place] 1.015 Last Edit by [facility] on 01/20/25 12:14 UA Ketone Last Edit by Selina Chowdary [facility] on 01/20/25 12:14 UA Bilirubin 0 mg/dL Last Edit by [facility] on 01/20/25 12:14 UA Glucose 100 mg/dL Last Edit by [facility] on 01/20/25 12:14 Results Reviewed Results Reviewed: Laboratory Last Values Urine pH (Auto) 5.5 01/20/25 12:13 Specific [place] (Auto) 1.015 01/20/25 12:13 Urine Protein (Auto) 300 mg/dL 01/20/25 12:13 Glucose (UA)(Auto) 100 mg/dL 01/20/25 12:13 Urine Blood (Auto) 10 Philippe/uL 01/20/25 12:13 Urine Bilirubin (Auto) 0 mg/dL 01/20/25 12:13 Urine Urobilinogen (Auto) 0.2 mg/dL 01/20/25 12:13 Leukocyte Esterase (Auto) 0 Allyssa/uL 01/20/25 12:13 Date of Service: 10/27/24 Procedure(s): CT abdomen pelvis wo IV con FINDINGS: LOWER CHEST: The visualized lung bases are clear. There is no pleural effusion. CARDIOVASCULATURE: The heart is normal in size. There is no pericardial effusion. LIVER: The liver is normal in size and contour. There is a subcentimeter hypodensity in the left lobe adjacent to the gallbladder without change. GALLBLADDER / BILE DUCTS: The gallbladder is unremarkable. There is no intra or extrahepatic biliary ductal dilatation. SPLEEN: The spleen is normal in size and has an unremarkable unenhanced appearance. PANCREAS: There is moderate peripancreatic inflammatory stranding consistent with acute pancreatitis. Evaluation for pancreatic necrosis is not possible without IV contrast. There is no peripancreatic fluid collection. ADRENAL GLANDS: Unremarkable. KIDNEYS/RETROPERITONEUM: No renal calculi are identified. There is no hydronephrosis. LYMPH NODES: No retroperitoneal lymphadenopathy is identified in the abdomen or pelvis. VASCULATURE: The abdominal aorta demonstrates atherosclerotic calcification, but is normal in caliber. MESENTERY/PERITONEUM: No free fluid. No masses. There is no free intraperitoneal gas. STOMACH: There is a small hiatal hernia. The remainder of the stomach is collapsed. SMALL BOWEL: The small bowel is normal in caliber. COLON: The colon is mostly unremarkable. Evaluation is limited by patient motion. APPENDIX: Normal. URINARY BLADDER/PELVIC ORGANS: The urinary bladder is unremarkable. The prostate is normal in size. BONES / SOFT TISSUES: No suspicious bony or soft tissue abnormalities. IMPRESSION: Findings consistent with acute pancreatitis as described. Assessment & Plan Assessment & Plan (1) BPH (benign prostatic hyperplasia): Code(s): N40.0 - Benign prostatic hyperplasia without lower urinary tract symptoms Category: Medical Qualifiers: Lower urinary tract symptom presence: symptoms present Lower urinary tract symptom detail: urinary frequency Qualified Code(s): N40.1 - Benign prostatic hyperplasia with lower urinary tract symptoms; R35.0 - Frequency of micturition (2) Dysuria: Code(s): R30.0 - Dysuria Category: Medical (3) Hypotonic neurogenic bladder: Code(s): N31.9 - Neuromuscular dysfunction of bladder, unspecified Category: Medical Plan In office urinalysis results reviewed with the patient today; as noted above; will send for microgen for further assessment evaluation; will await results for potential treatment PVR 30 mL. We did discussed potential causes of dysuria as well as further treatment options and risks and benefits of these treatment options. Meatal dilation was offered however deferred. Continue Flomax as discussed and prescribed. We did discussed potential cystoscopy in the near future if symptoms continue and or worsen. We discussed the importance of adequate hydration relation to lower urinary tract symptoms as well as overall health and well-being. Follow-up in 1-3 months with PVR; or sooner with any issues, concerns, and or questions. Orders: Orders AMB Urinalysis Automated Today Z13.9 - Encounter for screening, unspecified AMB Post Void Residual by ultrasound Today N40.1 - Benign prostatic hyperplasia with lower urinary tract symptoms, R35.0 - Frequency of micturition Patient Instructions: The patient had an opportunity to ask questions regarding the treatment plan. All questions were answered. Physical exam, labs, and imaging were discussed and reviewed in detail. As well as risks, benefits, and discussion of treatment choices. No major barriers to understanding were identified. The patient expressed understanding and agreement with the above treatment plan. The patient was made aware they should contact our office by phone for worsening of their current condition, the appearance of new symptoms, or with any questions or concerns. Compliance is encouraged with any medications and follow up testing that is ordered. It is a privilege to be allowed the opportunity to participate in? your urological care.? Again, if you have any questions or concerns If you have any questions or concerns please do not hesitate to contact me. The office is [phone]. This note is constructed using voice recognition software. While every effort has been made to ensure accuracy diversional therapist's assistant errors may have been included. Yours sincerely, SWAPNIL Barrera Coding Level of Care Code Est Pt Level 4 (58968) Complex EM visit Add On G2211 Diagnoses Benign prostatic hyperplasia with urinary frequency N40.1; R35.0 Lower urinary tract symptom presence: symptoms present Lower urinary tract symptom detail: urinary frequency Dysuria R30.0 Hypotonic neurogenic bladder N31.9 CPT Codes Post Residual Void - PVR CPT Code: 87482-Bldo Void Residual by ultrasound ([id number]) Time Spent (min) 40
--- OUTSIDE RECORDS SUMMARY | 2025-01-20 12:56 | XMS_ITS | Clinical Summary ---
Author Organization [facility] Facility Address [address] [address] Care Team Providers Care Food Service Associate Name Role Phone Boris Mcgowan MD Primary Care Provider [phone] Allergies No known active allergies Medications aspirin [...] [place] Care Teams Food Service Associate Relationship Specialty Start Date End Date Boris Mcgowan MD [id number] [place] PCP - General 08/02/20
== END 2025-01-20 12:20 | disposition home or self-care (01) ==
LOC: HO.HUSH 11:44
PROVIDERS: PCP Internal Medicine; Visit Provider Nurse Practitioner Family
DX: N40.1 Benign prostatic hyperplasia with lower urinary tract symptoms (principal); R35.0 Frequency of micturition; R30.0 Dysuria; N31.9 Neuromuscular dysfunction of bladder, unspecified; Z13.9 Encounter for screening, unspecified
CPT/HCPCS: 99214; G2211

== ENCOUNTER → 2025-01-20 11:43 | Outpatient (BNVA) | payer MEDICARE, MEDICAID, SELFPAY | PROVIDERS: PCP Internal Medicine; Visit Provider Nurse Practitioner Family | DX: N40.1 Benign prostatic hyperplasia with lower urinary tract symptoms (principal); R30.0 Dysuria; N31.9 Neuromuscular dysfunction of bladder, unspecified; R35.0 Frequency of micturition; Z79.899 Other long term (current) drug therapy; Z79.82 Long term (current) use of aspirin; Z13.9 Encounter for screening, unspecified | CPT/HCPCS: 51798; 81003; 99212 ==

== ENCOUNTER 2025-02-05 14:30 | Outpatient (AMB) | payer MEDICARE, MEDICAID, SELFPAY ==
[2025-02-05 14:31] VITALS: BP 134/72; PULSE 67; O2SAT 99; BMI 27.5
--- NOTE | 2025-02-05 14:31 | A.OFFVIS_ITS ---
Vital Signs 02/05/25 14:31 Height 4 ft 9 in Weight 127 lb BMI 27.5 BP 134/72 Blood Pressure Location Rt brachial Position Sitting Pulse 67 Pulse Source Pulse Oximeter Pulse Oximetry (%) 99 Oxygen Delivery Method Room Air Intake Visit Reasons: Cough Allergies Sulfa (Sulfonamide Antibiotics) (SULFA(SULFONAMIDE ANTIBIOTICS)) Allergy (Intermediate, Verified 02/05/25 14:37) ITCHING doxycycline Adverse Reaction (Intermediate, Verified 02/05/25 14:37) Pancreatitis HPI HPI Cough: Details: 44-year-old gentleman, lifetime nonsmoker, with underlying history of Down syndrome followed for chronic cough and IPF. He continues on chronic azithromycin suppressive therapy with baseline reasonable control of his symptoms. Over the last week he has been having increased cough with some sputum, and mild wheezing. [facility] Medical History Cellulitis Constipation Ascites Pericardial effusion Urethral meatal stenosis Mental and behavioral problem Renal insufficiency Hypercholesterolemia Down syndrome GERD (gastroesophageal reflux disease) BPH (benign prostatic hyperplasia) Hypothyroid Anxiety and depression Pseudoseizures Diabetes mellitus type 1 Surgical History Hx of cataract surgery Family History Father Medical history unknown Mother Medical history unknown Maternal Grandfather Prostate cancer Social History Household Members: Other Household Members Other:: [facility] Housing: Other Housing Other:: [facility] Do you presently have visiting nurse or other home services: No Unable to assess alcohol history related to: Unable to respond Alcohol intake: never Comment: 1:1 Sitter Patient Tobacco Use Status: Never used Tobacco e-Cigarette/Vaping Use: Never Used Second Hand Smoke Exposure: No service: No Current occupational status: disabled Cognitive needs: No Hearing needs: No Vision needs: No Review of Systems Const Denies daytime sleepiness, Denies excessive sweating, Denies fatigue, Denies fever(s), Denies lethargy, Denies malaise, Denies night sweats, Denies snoring and Denies weight loss Eyes Denies blurry vision and Denies itchy eyes ENT Denies nasal congestion, Denies post nasal drip, Denies sinus pain, Denies sinus pressure and Denies other ( Thrush) Card Denies chest pain, Denies pedal edema, Denies dyspnea, Denies orthopnea and Denies paroxysmal nocturnal dyspnea Resp Reports cough, Denies hemoptysis, Denies excessive phlegm production, Denies dyspnea, Denies snoring and Reports wheezing GI Denies abdominal pain and Denies heartburn Musc Denies myalgias, Denies arthralgias and Denies joint swelling Skin/Breast Denies rash Neuro Denies memory loss and Denies seizure-like activity Psych Denies abnormal sleep pattern, Denies anxiety and Denies memory loss Endo Denies excessive sweating, Denies fatigue and Denies heat intolerance Juan/Lymph Denies easy bruising Aller/Immun Denies itchy eyes, Denies seasonal rhinorrhea and Reports wheezing Physical Exam Vital Signs: Last Vital Signs Pulse 67 02/05/25 14:31 BP 134/72 02/05/25 14:31 Pulse Ox 99 02/05/25 14:31 Oxygen Delivery Method Room Air 02/05/25 14:31 BMI result Body Mass Index 27.5 Const General: no acute distress and alert Nutritional Appearance: not obese Orientation/consciousness: Other orientation findings ( oriented) HEENT Head: Yes atraumatic Eyes General: appearance normal, both eyes and all related structures Sclerae: sclerae normal EOM: EOMs intact bilaterally Neck Neck: Yes supple Lymphatic: no lymphadenopathy noted Resp Effort & Inspection: normal respiratory effort and no use of accessory muscles Auscultation: clear to auscultation bilaterally Cardio Rate: regular rate Rhythm: regular rhythm Heart sounds: no gallops, no murmurs and no rubs Skin General skin exam: other ( warm) Extrem General: No clubbing, No cyanosis and No edema Assessment & Plan Assessment & Plan (1) IPF (idiopathic pulmonary fibrosis): Code(s): J84.112 - Idiopathic pulmonary fibrosis Category: Medical Plan: Baseline essentially asymptomatic, continue to monitor clinically. Continue duo nebs. (2) Chronic cough: Code(s): R05 - Cough Category: Medical Plan: Overall well controlled on suppressive azithromycin, continue suppressive azithromycin 3 times a week. (3) Acute bronchitis: Code(s): J20.9 - Acute bronchitis, unspecified Category: Medical Qualifiers: Bronchitis organism: unspecified organism Qualified Code(s): J20.9 - Acute bronchitis, unspecified Plan: Will treat acute symptoms with a course of prednisone and Levaquin. Medications: New levofloxacin 500 mg PO DAILY 5 tabs 0RF albuterol sulfate 90 mcg/actuation (Ventolin HFA) 2 puffs inhalation Q4-6H PRN 1 ea 3RF shortness of breath or wheezing prednisone 40 mg (2 x 20 mg) PO DAILY 10 tabs 0RF Coding Level of Care Code Est Pt Level 4 (66143) Diagnoses IPF (idiopathic pulmonary fibrosis) J84.112 Chronic cough R05 Acute bronchitis, unspecified organism J20.9 Bronchitis organism: unspecified organism
== END 2025-02-05 14:41 | disposition home or self-care (01) ==
LOC: HO.HPS 14:30
PROVIDERS: PCP Internal Medicine; Visit Provider Internal Medicine Pulmonary Disease
DX: J84.112 Idiopathic pulmonary fibrosis (principal); R05.9 Cough, unspecified; J20.9 Acute bronchitis, unspecified
CPT/HCPCS: 99214

== ENCOUNTER → 2025-02-05 14:30 | Outpatient (BNVA) | payer MEDICARE, MEDICAID, SELFPAY | PROVIDERS: PCP Internal Medicine; Visit Provider Internal Medicine Pulmonary Disease | DX: R05.3 Chronic cough (principal); J84.112 Idiopathic pulmonary fibrosis; J20.9 Acute bronchitis, unspecified | CPT/HCPCS: 99212 ==

== ENCOUNTER 2025-02-17 14:39 | Outpatient (AMB) | payer MEDICARE, MEDICAID, SELFPAY ==
--- NOTE | 2025-02-17 14:45 | MHC.OFFVIS ---
Vital Signs 02/17/25 14:50 Height 4 ft 9 in Weight 127 lb 13.89 oz BMI 27.7 BP 132/78 Blood Pressure Location Lt brachial Position Sitting Pulse 64 Pulse Source Pulse Oximeter Pulse Oximetry (%) 100 Oxygen Delivery Method Room Air Intake Visit Reasons: f/u pancreatitis pt had imaging done in hospital Intake Note: ESTABLISHED PATIENT for mgmt of fecal abn + GERD. Labs done, Imaging completed while in ED for hyperglycemia. CC; Pt denies any current GI sx or concerns. Has been better since finishing abx courses. Patent Litigation Associate Required: No Accompanied by: Assistant Men'S Lacrosse Coach Allergies Sulfa (Sulfonamide Antibiotics) (SULFA(SULFONAMIDE ANTIBIOTICS)) Allergy (Intermediate, Verified 02/17/25 14:45) ITCHING doxycycline Adverse Reaction (Intermediate, Verified 02/17/25 14:45) Pancreatitis HPI HPI f/u pancreatitis pt had imaging done in hospital: Details: LAST VISIT Vitamin D deficiency Constipation GERD (gastroesophageal reflux disease) Abdominal pain Generalized postprandial abdominal pain Plan Occasional loose stools, will order GI panel. Abdominal pain and bloating postprandially, patient will be sent for abdominal ultrasound. Patient will hold Dulcolax for diarrhea. Increase fluid intake and activity to promote better bowel motility. Patient was encouraged to eat smaller meals and more often. If patient has symptoms will get worse or if he will have shows encouraged him to go to ED to get evaluated. Patient will follow-up in 2 months, sooner on as needed basis. Both patient and ict support technicians are agreeable to plan of care and verbalize understanding of instructions. They were given the opportunity to ask questions and all questions answered. ? Thank you for allowing me to participate in his care Orders GI Panel Today R19.7 US abdomen complete Today R10.84, R10.[address] PHILLIPS 10/28/2024 HPI Reason for consult: Acute pancreatitis 43yo M with Down's syndrome, resident of a intermediate, with PMHx of DM1, hypothyroidism, BPH, HTN, mood disorder, GERD, HLD, CKD, and IPF who presented to the hospital yest for sudden onset of severe abdominal pain to the point where he was crying, hitting himself, throwing himself on the ground, and trying to scratch his abdomen. No nausea or vomiting. No diarrhea or constipation. In the ED, he had a CT of the abdomen showing edema and inflammatory stranding consistent with pancreatitis despite normal seruml lipase. No history of gallstones and he does not drink EtOH. No prior history of pancreatitis. Pt seen in the presence of intermediate business system manager. Reports improvement in abdominal pain. Tolerable. Able to move her out easily. Still does not have an appetite however. Plan Overall presentation consistent with acute interstitial pancreatitis. Since has known hx of T1DM with burnt out pancreas not surprising to see a normal lipase level. Likely etiology appears to be drug related however given age will need to have anatomical abnl ruled out with interval imaging in 4-6 weeks. Plan: - IVF - has worsening renal function today. Recommend 1L bolus of LR followed by 2cc/kg/hr of infusion today, discontinue tmrw AM. - OK for NPO today. Trial clears tmrw - Monitor I & O for adequate hydration status - Glycemic control to avoid local infectious complications - Outpatient MRI pancreas protocol in 4-6 weeks - repeat MRI in during AIP and pancreatic edema may not be of high yield to r/o panc divisum, panc cyst etc. TODAY'S VISIT Patient is here today for follow-up. Patient is accompanied by his criminal justice social worker. Patient reports that he is feeling better today. As mentioned above in HPI patient has been admitted for abdominal pain and was found to have acute pancreatitis. Patient reports that he has been eating better. He is eating smaller meals and more often. Occasional postprandial abdominal bloating. Moving his bowels better. Takes MiraLax in the morning and Dulcolax in the evening. Patient is taking Creon with each meals up to 4 times a day. Takes omeprazole in the morning and famotidine at bedtime. Symptoms of acid reflux are suppressed while on this medication. Denies dyspepsia, dysphagia or odynophagia. Denies melena, hematochezia, unintentional weight loss or ribbon like stools. [facility] Medical History Cellulitis Constipation Ascites Pericardial effusion Urethral meatal stenosis Mental and behavioral problem Renal insufficiency Hypercholesterolemia Down syndrome GERD (gastroesophageal reflux disease) BPH (benign prostatic hyperplasia) Hypothyroid Anxiety and depression Pseudoseizures Diabetes mellitus type 1 Surgical History Hx of cataract surgery Family History Father Medical history unknown Mother Medical history unknown Maternal Grandfather Prostate cancer Social History Household Members: Other Household Members Other:: intermediate Housing: Other Housing Other:: intermediate Do you presently have visiting nurse or other home services: No Unable to assess alcohol history related to: Unable to respond Alcohol intake: never Comment: 1:1 Sitter Patient Tobacco Use Status: Never used Tobacco e-Cigarette/Vaping Use: Never Used Second Hand Smoke Exposure: No service: No Current occupational status: disabled Cognitive needs: No Hearing needs: No Vision needs: No Physical Exam Vital Signs: BMI result Body Mass Index 27.7 Results Reviewed Results Reviewed: ULTRASOUND OF ABDOMEN Findings: Mild peripancreatic edema and fluid noted. No pancreatic ductal dilatation. No biliary ductal dilatation. The common duct measures 2 mm at the rubina hepatis. Normal gallbladder without gallstone, sludge, wall thickening, or pericholecystic fluid. Right kidney unremarkable. IMPRESSION: No findings of cholecystitis, cholelithiasis, choledocholithiasis, or biliary ductal dilatation. Peripancreatic fluid and fat stranding consistent with pancreatitis. MRI OF ABDOMEN Findings: Respiratory motion degrades image quality. No signal abnormality in the lung bases. Trace right pleural fluid. No cholelithiasis, gallbladder wall thickening or pericholecystic fluid. The bladder measures 12.4 cm in craniocaudal dimension. No intrahepatic or extrahepatic biliary ductal dilatation. The pancreatic duct is not well seen. There is peripancreatic edema. No fluid collection. No abnormal enhancement. The other solid organs are unremarkable. Small hiatal hernia. No bowel wall thickening or dilation. A normal appendix is identified. No aneurysm. No lymphadenopathy. Trace ascites. No bone marrow edema. Impression: Peripancreatic edema secondary to pancreatitis. Respiratory motion degrades image quality in the pancreatic duct is not well seen; pancreatic divisum can not be excluded. No pancreatic/peripancreatic fluid collection. Assessment & Plan Assessment & Plan (1) Abdominal pain: Code(s): R10.9 - Unspecified abdominal pain Category: Medical Qualifiers: Abdominal location: generalized Qualified Code(s): R10.84 - Generalized abdominal pain (2) Acute pancreatitis: Code(s): K85.90 - Acute pancreatitis without necrosis or infection, unspecified Category: Medical Qualifiers: Pancreatitis type: idiopathic Acute pancreatitis complication: no infection or necrosis Qualified Code(s): K85.00 - Idiopathic acute pancreatitis without necrosis or infection (3) GERD (gastroesophageal reflux disease): Code(s): K21.9 - Gastro-esophageal reflux disease without esophagitis Category: Medical Qualifiers: Esophagitis presence: without esophagitis Qualified Code(s): K21.9 - Gastro-esophageal reflux disease without esophagitis (4) Dysphagia: Code(s): R13.10 - Dysphagia, unspecified Category: Medical Qualifiers: Dysphagia type: other dysphagia Qualified Code(s): R13.19 - Other dysphagia (5) Constipation: Code(s): K59.00 - Constipation, unspecified Category: Medical Qualifiers: Constipation type: chronic idiopathic constipation Qualified Code(s): K59.04 - Chronic idiopathic constipation (6) Constipation: Code(s): K59.00 - Constipation, unspecified Category: Medical Qualifiers: Constipation type: slow transit constipation Qualified Code(s): K59.01 - Slow transit constipation (7) Left inguinal hernia: Comment: September 2022Moderate amount of stool content in the colon and rectum suggesting constipation. 2. Small fat-containing umbilical and left inguinal hernias. Code(s): K40.90 - Unilateral inguinal hernia, without obstruction or gangrene, not specified as recurrent Category: Medical Plan Patient will continue taking Creon with meals. Continue PPI and H2 dean therapy. Avoid dietary triggers in late night snacking. Low-fat, low-salt, high-protein diet recommended. Patient will be sent for MRI to evaluate pancreas. Continue bowel regimen with MiraLax in the morning and Dulcolax at bedtime. Increase fluid intake and activity to promote better bowel motility. Low FODMAP diet recommended to prevent bloating. Follow-up in 2 months, sooner on as needed basis patient. Both patient and the criminal justice social worker are agreeable to plan of care and verbalized understanding of instructions. They were given the opportunity to ask questions and all questions answered. 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 Coding Level of Care Code Est Pt Level 4 (03211) Complex EM visit Add On G2211 Diagnoses Generalized abdominal pain R10.84 Abdominal location: generalized Idiopathic acute pancreatitis without infection or necrosis K85.00 Pancreatitis type: idiopathic Acute pancreatitis complication: no infection or necrosis Gastroesophageal reflux disease without esophagitis K21.9 Esophagitis presence: without esophagitis Other dysphagia R13.19 Dysphagia type: other dysphagia Chronic idiopathic constipation K59.04 Constipation type: chronic idiopathic constipation Left inguinal hernia K40.90 Time Spent (min) 40 Comment 25 minutes from patient and additional 15 minutes spent reviewing his records
[2025-02-17 14:50] VITALS: BP 132/78; PULSE 64; O2SAT 100; BMI 27.7
--- OUTSIDE RECORDS SUMMARY | 2025-02-17 15:24 | XMS_ITS | Clinical Summary ---
Author Organization [facility] Facility Address [address] [address] Care Team Providers Care Laborer [facility] Name Role Phone Boris Mcgowan MD Primary Care Provider [phone] Allergies No known active allergies Medications aspirin [...] Visual Foot Exam 08/23/2020 Influenza Vaccine (#1) 2025 Insurance Medicare [place] Care Teams Laborer [facility] Relationship Specialty Start Date End Date Boris Mcgowan MD [address] [place] PCP - General 08/02/20
--- OUTSIDE RECORDS SUMMARY | 2025-02-17 15:24 | XMS_ITS | Clinical Summary ---
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 Active STOOL SOFTENER-LAXATI VE 8.6-50 mg 3 Active metoprolol succinate (TOPROL-XL) 25 MG 24 hr tablet 3 Active ipratropium-alb uteroL (DUONEB) 0.5-3 mg (2.5 mg base)/3 mL nebulizer solution INHALE 1 VIAL BY MOUTH TWICE A DAY 3 Active GLUCAGON 1 mg injection 3 Active folic acid (FOLVITE) 800 MCG tablet 1 tablet Orally Once a day for 30 day(s) Active LORazepam (ATIVAN) 0.5 MG tablet 3 Active azithromycin (ZITHROMAX) 250 MG tablet 3 Active aspirin 81 MG EC tablet 1 tablet Orally Once a day for 30 day(s) Active ascorbic Acid (VITAMIN C) 500 mg CpER Take 1 capsule by mouth. Active cetirizine (ZYRTEC) 10 MG tablet 1 tablet Orally Once a day for 30 day(s) Active zinc oxide/cod liver oil (DESITIN TP) Desitin Active wheat dextrin/calcium /aspartam (BENEFIBER + CALCIUM SUGAR-FREE ORAL) Benefiber Active alcohol PadM 3 Active blood-glucose meter,continuou s Misc by Miscellaneous route as needed. Active blood-glucose transmitter (DEXCOM G6 TRANSMITTER MISC) 1 each by Miscellaneous route every 3 (three) months. Active blood-glucose sensor (DEXCOM G6 SENSOR MISC) 1 each by Miscellaneous route. Active omeprazole (PRILOSEC) 20 MG capsule Take 20 mg by mouth daily. 4 Active CREON 24,000-76,000 -120,000 unit CpDR Take 24,000 units of lipase by mouth 3 (three) times a day with meals. 4 Active ferrous sulfate 325 mg (65 mg seneca-cayuga iron) EC tablet Take 325 mg by mouth daily with breakfast. 4 Active docusate sodium (COLACE) 50 MG capsule Take 50 mg by mouth 2 (two) times a day. Active nystatin (NYSTOP) powder Apply 1 Application topically daily. Active COMFORT EZ PEN NEEDLES 32 gauge x NdleIndications :Type 1 diabetes mellitus with nephropathy Inject 1 each under the skin 4 (four) times a day. 400 each 3 4 Active FREESTYLE LITE Strp stripsIndicatio ns:Type 1 diabetes mellitus with nephropathy Use as directed to monitor glucose, test up to 4 times/day 150 strip 11 4 Active Additional Information Patient not taking.Reported on 12/03/2024 amLODIPine (NORVASC) 5 MG tablet Take 5 mg by mouth daily. 4 Active LOKELMA 5 gram Take 5 g by mouth 3 (three) times a week. Active famotidine (PEPCID AC) 20 MG tablet Take 20 mg by mouth 2 (two) times a day. Active diclofenac sodium (VOLTAREN) 1 % Gel Apply topically 4 (four) times a day. Active simvastatin (ZOCOR) 20 MG tablet Take 20 mg by mouth nightly at bedtime. 4 Active glucose 4 GM chewable tabletIndicatio ns:Type 1 diabetes mellitus with nephropathy Take 4 tablets (16 g total) by mouth as needed (for hypoglycemia). 100 tablet 5 4 Active cholecalciferol , vitamin D3, 25 mcg (1,000 unit) capsuleIndicati ons:Vitamin D deficiency Take 2,000 Units by mouth daily. 180 capsule 1 4 Active PURE COMFORT SAFETY LANCETS 30 gauge MiscIndications :Type 1 diabetes mellitus with nephropathy Inject 1 each under the skin 4 (four) times a day before meals and nightly. 200 each 4 Active HUMALOG KWIKPEN INSULIN 100 unit/mL kwikpenIndicati ons:Type 1 diabetes mellitus with nephropathy 2-14 units, via scale, subcutaneously, tid AC 15 mL 5 4 Active blood-glucose meter kitIndications: Type 1 diabetes mellitus with nephropathy Use as instructed to test glucose. [id number] Talking monitor, for Day program use 1 kit 4 Active levothyroxine (SYNTHROID, LEVOTHROID) 112 MCG tablet Take 112 mcg by mouth every morning. Active ergocalciferol (DRISDOL) 50,000 unit capsule Take 50,000 Units by mouth once a week. Active blood sugar diagnostic Strp stripsIndicatio ns:Type 1 diabetes mellitus with nephropathy Inject 1 each under the skin 6 (six) times a day. Use as directed to monitor glucose once daily, to go with Embrace meter, to be used @ Day Program 600 strip 3 5 Active dextrose (GLUTOSE) 40 % gelIndications: Type 1 diabetes mellitus with nephropathy Take 15 g by mouth once as needed (hypoglycemia, may repeat as per protocol). 75 g 11 5 Active insulin glargine (LANTUS SOLOSTAR U-100 INSULIN) 100 unit/mL (3 mL) InPn injection penIndications: Type 1 diabetes mellitus with nephropathy 11 units, or as directed, plus 2 units to prime needle with each dose 15 mL 5 5 Active Additional Information Patient taking differently: 13 units, or as directed, plus 2 units to prime needle with each dose, Reported on 12/03/2024 transparent dressings (TEGADERM) 3 1/2 X 4 BndgIndications :Type 1 diabetes mellitus with peripheral neuropathy Apply 1 each topically Every 10 Days. To cover the dexcom G6 CGM 9 each 3 5 Active glucagon (BAQSIMI) 3 mg/actuation SpryIndications :Type 1 diabetes mellitus with peripheral neuropathy 1 spray by Nasal route once as needed (hypoglycemia when cannot safely take anything orally). 2 each 3 5 Active Active Problems Problem Noted Date Diagnosed Date Arthritis 04/24/2023 04/24/2023 Acquired hallux valgus 10/19/2022 Acquired hammer toe of left foot 10/19/2022 Acquired hammer toe of right foot 10/19/2022 Acquired hypothyroidism 10/19/2022 Assessment & Plan (09/12/2024 4:13 PM EST): Dose was increased by PCP in May. Taking by itself in the morning, taking iron later in the day. Will recheck levels. Assessment & Plan (06/05/2024 4:42 PM EST): Will check levels to determine if medication adjustments are needed Assessment & Plan (02/15/2024 9:40 AM EDT): Will check levels & adjust rx as appropriate. Assessment & Plan (11/16/2023 11:18 AM EDT): Will check levels to determine if medication adjustments are needed Assessment & Plan (08/09/2023 12:29 PM EST): Will check levels & adjust rx as appropriate. Assessment & Plan (04/24/2023 2:49 PM EDT): Euthyroid in December. Weight stable. Assessment & Plan (01/19/2023 10:24 AM EDT): Will check levels to determine if medication adjustments are needed Assessment & Plan (10/19/2022 1:01 PM EDT): Will call for recent labs. Down syndrome 10/19/2022 Vitamin D deficiency 10/19/2022 Assessment & Plan (09/12/2024 4:13 PM EST): On prescription dose rx. 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 Using CGM most of the time. Assessment & Plan (02/15/2024 9:41 AM EDT): No recent severe lows. Assessment & Plan (08/09/2023 12:28 PM EST): No recent severe lows. Will work on getting his CGM supplies. Assessment & Plan (10/19/2022 1:02 PM EDT): On dexcom, reviewed rx hypoglycemia. Type 1 diabetes mellitus with nephropathy 2020 Assessment & Plan (09/12/2024 4:12 PM EST): Control remains suboptimal. No frequent or severe hypoglycemia & no pattern to fingerstick readings to guide rx adjustment, some days appear reasonable. Advised them to bring CGM reader to all visits. Continue to work on eating healthy & keeping active. To call or send in BG with problems with glycemic control. Following w/ renal. BP under reasonable control. Assessment & Plan (06/05/2024 4:46 PM EST): Control is reasonable based upon the patient's SMBG readings. He has been a couple weeks without his transmitter due to it being mistakenly thrown away. He will be getting a new sensor in a few days and will then restart his dexcom. No frequent or severe hypoglycemia. He had a couple lows and these were corrected with glucose tablets and then was fine. Will maintain his regimen as control has been reasonable. Continue to work on eating healthy and being active. To call or message with any issues managing his glucose levels. Up to date with [facility]o. Sees podiatry. Labs ordered Assessment & Plan (02/15/2024 9:40 AM EDT): Control suboptimal. Dexcom download shows some decrease overnight. Often very high, but has had some days with very good control. Some of highs are after lows, so will see how #s do with lowering lantus, decreasing lows. Advised to lower lantus dose from 16 to 15 units. Continue to work on eating healthy & keeping active. To call or send in BG with problems with glycemic control. Following w/ renal. BP under reasonable control. Assessment & Plan (02/15/2024 9:37 AM EDT): Control suboptimal. Has had increasingly frequent hypoglycemia with several severe episodes, that did not respond promptly to rx (checked via fingerstick, + persistent sxs). Has also had some late am, although less severe. Dexcom download shows some decrease overnight. Advised to lower lantus dose and dose @ evening meal by 1 unit each. Reviewed treatment of hypoglycemia, need to monitor via fingerstick given delay with CGM. They feel he responded more quickly to gel, rx sent. RNs from [facility] ([facility]) would like some additional education @ dexcom. Gave them Dexcom reps contact information, could also refer to CDE if needed. Continue to work on eating healthy & keeping active. To call or send in BG with problems with glycemic control. [facility] Follows with [facility]ry. Will call for recent labs done via PCP, asked caregivers to be sure to have them sent or bring to us @ future visits. BP under reasonable control. Assessment & Plan (08/09/2023 12:29 PM EST): On akin-inhibitor. BP appears well controlled. Has seen renal, although doesn't sound like seeing them regularly at this point. Assessment & Plan (04/24/2023 2:55 PM EDT): Control suboptimal. Some lows fasting & mid-day recently. Will lower lantus from 18 to 17 units. Continue to work on eating healthy & keeping active. To call or send in BG with problems with glycemic control. Will call for more recent labs. Reviewed importance of timing of insulin in relation to food. Discussed site rotation, he gives insulin w/ supervision of RN/staff, has been using incorrect areas on arm, which could be causing some variation in insulin absorption. Advised they avoid arms unless he allows [facility] to administer in back of arm. Some issues w/ CGM, he is doing something to system which is making it not work. Advised them to work with him to stop this behavior and if unable to do so or get meaningful data/benefit from rx may shift back to SMBG only. Stage 3 chronic kidney disease 10/21/2020 Proteinuria 10/21/2020 Hypercholesterolemia 10/21/2020 04/24/2023 Type 1 diabetes mellitus with peripheral neuropa thy Assessment & Plan (12/04/2024 11:14 AM EDT): Control is reasonable based upon the patient's SMBG readings. No severe hypoglycemia. He had an episode of hypoglycemia where he refused to treat it and had to be taken to the hospital. He was fine after going to the hospital. Talked to the patient of the importance of correcting a low glucose level. He says he understands and will correct lows. Discussed the use of baqsimi to have in case of a low where he cannot safely take anything orally to correct a low. He has been injecting his insulin often into his right thigh. There is lipohypertrophy or bruising from frequent use of his leg. Discussed with him the importance of moving around his insulin injections and how not moving them effects his glucose control. He will work on switching injection locations. Will maintain his regimen. Continue to work on eating healthy and being active. To call or message with any issues managing his glucose levels. Up to date with [facility]. Sees podiatry. Labs ordered Assessment & Plan (09/12/2024 4:14 PM EST): Following w/ podiatry. Has neuropathy but foot discomfort he is describing does not sound typical for neuropathy. Assessment & Plan (02/15/2024 9:41 AM EDT): Following w/ podiatry. Assessment & Plan (11/16/2023 11:20 AM EDT): Control is reasonable but not optimal based upon the patient's dexcom G6 download. No frequent or severe hypoglycemia. He will have an occasional low but this is usually after correcting a high. His readings are running highest after dinner and overnight. Will increase his sliding scale at dinner by 1 unit at each level. Will increase his lantus by 1 unit as well to help with the high fastings.Continue to work on eating healthy and being active. To call or message with any issues managing his glucose levels. Up to date with [facility]. Foot and nail care good. Sees podiatry. Labs ordered today Assessment & Plan (08/09/2023 12:28 PM EST): Control remains erratic. Tending to be low fasting/mid-day, high @ hs. Advised they lower his basal insulin from 17 to 16 units. Will work on getting him his dexcom supplies,will try to see if reliable is able to fill them for him. Continue to work on eating healthy & keeping active. To call or send in BG with problems with glycemic control. Will do labs today. Following w/ podiatry, encouraged them to use the antifungal cream regularly. Assessment & Plan (04/24/2023 2:52 PM EDT): Follows w/ podiatry. Assessment & Plan (01/19/2023 10:26 AM EDT): Control is unknown as the patient's glucose logs and dexcom reader were not brought to today's visit. No frequent or severe hypoglycemia. Ellen recalls the patient maybe having 5 episodes of hypoglycemia over the last month, they will correct with glucose tablets and then is fine. She recalls his numbers have been better overall. Will maintain his regimen. Continue to work on eating healthy and being active. To call or message with any issues managing his glucose levels. Up to date with ophtho. Foot and nail care good. Sees podiatry. Labs ordered today Assessment & Plan (10/19/2022 12:59 PM EDT): Sees podiatry regularly. No skin breakdown. Type 1 diabetes mellitus with retinopathy Assessment & Plan (09/12/2024 4:14 PM EST): Up to date with ophtho. Assessment & Plan (02/15/2024 9:41 AM EDT): Up to date with ophtho. Assessment & Plan (08/09/2023 12:28 PM EST): Up to date with ophtho. Assessment & Plan (04/24/2023 2:53 PM EDT): Up to date w/ Dr. Nataliya sawyer. 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/19/2022 04/24/2023 Encounters Date Type Department Care Team Description 02/08/2025 Telephone [facility] Endocrinology [address] [place] [address] [place] [address] María Jessica PA-C high fasting glucose levels 01/27/2025 Telephone [facility] Endocrinology [address] [place] [address] [place] [address] Yulisa Zelaya RN medical problem 01/14/2025 Telephone [facility] Endocrinology [address] [place] [address] [place] [address] Jade Cano MD High sugars (High sugars [phone]) 01/01/2025 Telephone [facility] Endocrinology [address] [place] [address] [place] [address] María Jessica PA-C 12/25/2024 Telephone [facility] [address] [place] [address] Jade Cano MD Reporting High sugars (Reporting High sugars) 12/10/2024 Telephone [facility] [address] [place] [address] Jade Cano MD Insulin Orders 12/04/2024 Telephone [facility] Endocrinology [address] [place] [address] Laura Linder MA 12/03/2024 10:20 AM EDT - 12/03/2024 11:59 PM EDT Hospital Encounter [facility] [address] [place] [address] María Jessica PA-C Discharge Disposition: Home or Self Care 12/03/2024 9:20 AM EDT Office Visit [facility] [address] [place] [address] María Jessica PA-C Type 1 diabetes mellitus with peripheral neuropathy (Primary Dx) from Last 3 Months Social History Tobacco Use Types Packs/Day Years Used Date Smoking Tobacco: Never Smokeless Tobacco: Never Tobacco Cessation:Counseling Given: Not Answered Alcohol Use Standard Drinks/Week Comments Never 0 (1 standard drink = 0.6 oz pur e alcohol) Education Answer Date Recorded Are you interested in more education? Not on laly e 11/18/2022 Are you concerned about learning? Not on file 11/18/2022 No 11/18/2022 No 11/18/2022 Digital Access Answer Date Recorded No 12/13/2022 No 12/13/2022 Reliable internet access at home? Not on file 12/13/2022 Device with a working camera? Not on file Sex and Gender Information Value Date Recorded Sex Assigned at Male 10/24/2024 12:09 AM EDT Legal Sex Male 2:12 PM EST Gender Identity Male 10/24/2024 12:09 AM EDT Sexual Orientation Not on file Last Filed Vital Signs Vital Sign Reading Time Taken Comments Blood Pressure 118/78 12/03/2024 9:16 AM EDT Pulse 66 12/03/2024 9:16 AM EDT Temperature 36.6 C (97.8 F) 11/16/2023 10:44 AM EDT Respiratory Rate - - Oxygen Saturation 99% 09/12/2024 10:05 AM EST Inhaled Oxygen Concentration - - Weight 59.9 kg (132 lb) 12/03/2024 9:16 AM EDT Height 139 cm (4' 6.72 ) 09/12/2024 10:05 AM EST Body Mass Index 30.99 09/12/2024 10:05 AM EST Plan of Treatment Upcoming Encounters Date Type Department Care Team (Late st Contact Info) Description 03/10/2025 9:40 AM EDT Office Visit [facility] [address] [place] [address] María Jessica PA-C [address] [place] [id number] 06/04/2025 11:40 AM EST Office Visit [facility] [address] [place] [address] Jade Cano MD [address] [place] [id number] [email or web address] 09/02/2025 10:00 AM EST Office Visit [facility] [address] [place] [address] Jade Cano MD [address] [place] [id number] Health Maintenance Due Date Last Done Comments Adult Td,Tdap Booster 1980 DEPRESSION SCREENING 1992 HEPATITIS C SCREENING 1998 HIV ONE-TIME SCREENING (18-65 YEARS) 1998 PNEUMOCOCCAL VACCINES (0-49 years) (1 of 2 - PCV) 11/25/1999 DIABETIC EYE EXAM 10/19/2022 COVID-19 VACCINE ( season) 2024 HEMOGLOBIN A1C 03/05/2025 12/03/2024, 08/24, 05/30/2024, Additional history exists BLOOD PRESSURE 06/05/2025 12/03/2024 TSH LEVEL 09/12/2025 09/12/2024, 02/2024, 02/15/2024, Additional history exists SMOKING STATUS SCREENING (Once After 26 Yrs) Completed 05/30/2024 HEPATITIS A VACCINES Aged Out No long er eligible based on patient's age to complete this topic HIB VACCINES Aged Out No longer eligi ble based on patient's age to complete this topic MENINGOCOCCAL VACCINES (ACWY) Aged Out No longer eligible based on patient's age to complete this topic MENINGOCOCCAL VACCINES (B) Aged Out N o longer eligible based on patient's age to complete this topic Medical Devices Not on file Procedures Procedure Name Priority Date/Time Associated Diagnosis Comments HEMOGLOBIN A1C Routine 12/03/2024 10:35 AM EDT Type 1 diabetes mellitus with peripheral neuropathy ALANINE AMINOTRANSFERASE (ALT) Routine 12/03/2024 10:35 AM EDT Type 1 diabetes mellitus with peripheral neuropathy ASPARTATE AMINOTRANSFERASE (AST) Routine 12/03/2024 10:35 AM EDT Type 1 diabetes mellitus with peripheral neuropathy BASIC METABOLIC PANEL Routine 12/03/2024 10:35 AM EDT Type 1 diabetes mellitus with peripheral neuropathy TSH WITH REFLEX Routine 09/12/2024 10:45 AM EST Acquired hypothyroidism from Last 3 Months or Most Recently Relevant to Health Maintenance Results * Alanine aminotransferase (ALT) (12/03/2024 10:35 AM EDT) ALT 12 0 - 40 U/L [facility] Blood 12/03/2024 10:3 5 AM EDT 12/03/2024 10:40 AM EDT us María Jessica PA-C LAB BLOOD ORDERABL ES Final Result [facility] [address] [place] [address] * Aspartate aminotransferase (AST) (12/03/2024 10:35 AM EDT) AST 21 0 - 37 U/L [facility] Blood 12/03/2024 10:3 5 AM EDT 12/03/2024 10:40 AM EDT María Jessica PA-C LAB BLOOD ORDERABL ES Final Result [address] [address] * (ABNORMAL) Hemoglobin A1c (12/03/2024 10:35 AM EDT) HEMOGLOBIN A1C 8.4(H) 4.3 - 5.8 % [facility] Blood 12/03/2024 10:3 5 AM EDT 12/03/2024 10:40 AM EDT María Jessica PA-C LAB BLOOD ORDERABL ES Final Result Performing Organization Address City/[facility]/ZIP Co de Phone Number [address] [address] * (ABNORMAL) Basic metabolic panel (12/03/2024 10:35 AM EDT) SODIUM 136 133 - 146 mmol/L [facility] CHLORIDE 104 96 - 108 mmol/L [facility] POTASSIUM 5.3(H) 3.3 - 5.1 mmol/L [facility] CO2 26 21 - 35 mmol/L [facility] BUN 41(H) 6 - 19 mg/dL [facility] CREATININE 2.20(H) 0.5 - 1.5 mg/dL [facility] GLUCOSE 159(H) 70 - 99 mg/dL [facility] CALCIUM 8.4 8.4 - 10.3 mg/dL [facility] EGFR 37(L) >59 mL/min/1.7 3m2 [facility] Comment:Estimated glomerular filtration rate calculated using the CKD-EPI refit equation. ANION GAP 11 10 - 20 mmol/L [facility] Blood 12/03/2024 10:3 5 AM EDT 12/03/2024 10:40 AM EDT us María Jessica PA-C LAB BLOOD ORDERABL ES Final Result Performing Organization Address [facility]/ZIP Co de Phone Number [address] [address] * TSH with reflex (09/12/2024 10:45 AM EST) TSH 4.00 0.27 - 4.20 uIU/mL [facility] Blood 09/12/2024 10:4 5 AM EST 09/12/2024 10:52 AM EST Jade Cano MD LAB BLOOD ORDERABLES F inal Result Performing Organization Address [facility] Co de Phone Number [address] [address] from Last 3 Months or Most Recently Relevant to Health Maintenance Insurance [facility] MEDICARE PART A & [place] & [place] & [place] [facility] MEDICARE PART A & B Care Teams Parking Lot Chauffeur Relationship Specialty Start Date End Date Boris Mcgowan MD [address] [place] [phone] PCP - General Internal Medicine 09/20/22 Additional Source Comments The information contained in this document represents components of the legal health record. It is not the complete legal health record.[facility]
== END 2025-02-17 15:12 | disposition home or self-care (01) ==
LOC: HO.HGI 14:40
PROVIDERS: PCP Internal Medicine; Visit Provider Nurse Practitioner Family
DX: R10.84 Generalized abdominal pain (principal); K85.00 Idiopathic acute pancreatitis without necrosis or infection; K21.9 Gastro-esophageal reflux disease without esophagitis; R13.19 Other dysphagia; K59.04 Chronic idiopathic constipation; K40.90 Unilateral inguinal hernia, without obstruction or gangrene, not specified as recurrent; K59.01 Slow transit constipation
CPT/HCPCS: 99214; G2211

== ENCOUNTER → 2025-02-17 14:39 | Outpatient (BNVA) | payer MEDICARE, MEDICAID, SELFPAY | PROVIDERS: PCP Internal Medicine; Visit Provider Nurse Practitioner Family | DX: R10.84 Generalized abdominal pain (principal); K85.00 Idiopathic acute pancreatitis without necrosis or infection; K21.9 Gastro-esophageal reflux disease without esophagitis; R13.19 Other dysphagia; K59.04 Chronic idiopathic constipation; K40.90 Unilateral inguinal hernia, without obstruction or gangrene, not specified as recurrent | CPT/HCPCS: 99212 ==

== ENCOUNTER 2025-03-04 14:09 | Outpatient (REF) | payer MEDICARE, MEDICAID, SELFPAY ==
--- OUTSIDE RECORDS SUMMARY | 2025-03-04 14:29 | XMS_ITS | Clinical Summary ---
Author Organization [facility] Address [address] [place] [phone] Phone Care Team Providers Care Mechanical Project Manager Name Role Phone Boris Mcgowan MD Primary Care Provider [phone] Allergies Active Allergy Reactions Criticality Noted Date [...] Active ferrous sulfate 325 mg (65 mg [place] iron) EC tablet Take 325 mg by [...] nephropathy Use as instructed to test glucose. Stroz Friedberg Talking monitor, for Day program use 1 [...] with glycemic control. [facility] Follows with podiatry. Will call for recent [...] Problem Noted Date Diagnosed Date Resolved Date [facility] (current) use of insulin 10/19/2022 04/24/2023 Encounters Date Type Department Care Team Description 02/08/2025 Telephone [facility] [place] [address] [place] [address] [place] [address] María Jessica PA-C high fasting glucose levels 01/27/2025 Telephone [facility] [place] [address] [place] [address] [place] [address] Yulisa Zelaya RN medical problem 01/14/2025 Telephone [facility] [place] [address] [place] [address] [place] [address] Jade Cano MD High sugars (High sugars 454--531) 01/01/2025 Telephone [facility] [place] [address] [place] [address] [place] [address] María Jessica PA-C 12/25/2024 Telephone [facility] [address] [place] [address] Jade Cano MD Reporting High sugars (Reporting High sugars) 12/10/2024 Telephone [facility] [address] [place] [address] Jade Cano MD Insulin Orders 12/04/2024 Telephone [facility] [address] [place] [address] Laura Linder MA 12/03/2024 10:20 AM EDT - 12/03/2024 11:59 PM EDT Hospital Encounter [facility] [address] [place] [address] María Jessica PA-C Discharge Disposition: Home or Self Care 12/03/2024 9:20 AM EDT Office Visit [facility] [address] [place] [address] María Jessica PA-C Type 1 diabetes mellitus [...] AM EDT Office Visit [facility] [address] [place] [address] María Jessica PA-C [address] [place] [address] 06/04/2025 11:40 AM EST Office Visit [facility] [address] [place] [address] Jade Cano MD [address] [place] [address] 09/02/2025 10:00 AM EST Office Visit [facility] [address] [place] [address] Jade Cano MD [address] [place] [address] Health Maintenance Due Date Last Done Comments [...] EDT) ALT 12 0 - 40 U/L [facility] Blood 12/03/2024 10:3 5 AM EDT 12/03/2024 10:40 AM EDT us María Jessica PA-C LAB BLOOD ORDERABL ES Final Result [facility] [address] [place] [address] * Aspartate aminotransferase (AST) (12/03/2024 10:35 AM EDT) AST 21 0 - 37 U/L [facility] Blood 12/03/2024 10:3 5 AM EDT 12/03/2024 10:40 AM EDT María Jessica PA-C LAB BLOOD ORDERABL ES Final Result [address] [address] * (ABNORMAL) Hemoglobin A1c (12/03/2024 10:35 AM EDT) HEMOGLOBIN A1C 8.4(H) 4.3 - 5.8 % [facility] Blood 12/03/2024 10:3 5 AM EDT 12/03/2024 10:40 AM EDT María Jessica PA-C LAB BLOOD ORDERABL ES Final Result Performing Organization Address City/[facility]/ZIP Co de Phone Number [address] [address] * (ABNORMAL) Basic metabolic panel (12/03/2024 10:35 AM EDT) SODIUM 136 133 - 146 mmol/L [facility] CHLORIDE 104 96 - 108 mmol/L [facility] POTASSIUM 5.3(H) 3.3 - 5.1 mmol/L [facility] CO2 26 21 - 35 mmol/L [facility] BUN 41(H) 6 - 19 mg/dL [facility] CREATININE 2.20(H) 0.5 - 1.5 mg/dL [facility] GLUCOSE 159(H) 70 - 99 mg/dL [facility] CALCIUM 8.4 8.4 - 10.3 mg/dL [facility] EGFR 37(L) >59 mL/min/1.7 3m2 [facility] Comment:Estimated glomerular filtration rate calculated using the CKD-EPI refit equation. ANION GAP 11 10 - 20 mmol/L [facility] Blood 12/03/2024 10:3 5 AM EDT 12/03/2024 10:40 AM EDT us María Jessica PA-C LAB BLOOD ORDERABL ES Final Result Performing Organization Address [facility]/ZIP Co de Phone Number [address] [address] * TSH with reflex (09/12/2024 10:45 AM EST) TSH 4.00 0.27 - 4.20 uIU/mL [facility] Blood 09/12/2024 10:4 5 AM EST 09/12/2024 10:52 AM EST Jade Cano MD LAB BLOOD ORDERABLES F inal Result Performing Organization Address [facility] Co de Phone Number [address] [address] from Last 3 Months or Most Recently Relevant to Health Maintenance Insurance [facility] MEDICARE PART A & B [place] PART [place] & B [facility] MEDICARE PART A & B Care Teams Mechanical Project Manager Relationship Specialty Start Date End Date Boris Mcgowan MD [address] [place] [id number] PCP - General Internal Medicine 09/20/22 Additional Source Comments The information contained in this document represents components of the legal health record. It is not the complete legal health record.[facility]
--- OUTSIDE RECORDS SUMMARY | 2025-03-04 14:29 | XMS_ITS | Clinical Summary ---
Author Organization [facility] Facility Address [address] [address] Care Team Providers Care Forging Machine Hand Name Role Phone Boris Mcgowan MD Primary Care Provider [phone] Allergies No known active allergies Medications aspirin [...] Medicaid [place] Medicare [place] Care Teams Forging Machine Hand Relationship Specialty Start Date End Date Boris Mcgowan MD [address] [place] PCP - General 08/02/20
[2025-03-04 14:58] LABS: Anion Gap 9 (12-20); Blood Urea Nitrogen 40 mg/dL (9-16); Calcium 7.8 mg/dL (8.4-10.2); Carbon Dioxide 25 mmol/L (22-29); Chloride 109 mmol/L (96-108); Estimated Glomerular Filt Rate 26; Potassium 4.5 mmol/L (3.3-5.1); Sodium 138 mmol/L (135-145)
== END 2025-03-04 14:10 | disposition home or self-care (01) ==
LOC: HO.LAB 14:09
PROVIDERS: PCP Internal Medicine; Visit Provider Internal Medicine Hypertension Specialist
DX: N18.9 Chronic kidney disease, unspecified (principal)
CPT/HCPCS: 36415; 80048

== ENCOUNTER 2025-03-05 13:12 | Outpatient (AMB) | payer MEDICARE, MEDICAID, SELFPAY ==
[2025-03-05 13:15] VITALS: BP 150/70; PULSE 69; O2SAT 98; BMI 28.1
--- NOTE | 2025-03-05 13:15 | HO.NEPHOV ---
Vital Signs 03/05/25 13:15 Height 4 ft 9 in Weight 130 lb BMI 28.1 BP 150/70 H Blood Pressure Location Lt brachial Position Sitting Pulse 69 Pulse Source Pulse Oximeter Pulse Oximetry (%) 98 Oxygen Delivery Method Room Air Intake Visit Reasons: 2 MO FU-M Payroll Lead Required: No Accompanied by: Medical Tech Allergies Sulfa (Sulfonamide Antibiotics) (SULFA(SULFONAMIDE ANTIBIOTICS)) Allergy (Intermediate, Verified 03/05/25 13:17) ITCHING doxycycline Adverse Reaction (Intermediate, Verified 03/05/25 13:17) Pancreatitis Medication List - Last Reconciled 03/05/25 by Pineda Tarango MD acetaminophen (Tylenol) 650 mg (2 x 325 mg) PO Q6H PRN albuterol sulfate 90 mcg/actuation (Ventolin HFA) 2 puffs inhalation Q4-6H PRN amlodipine 5 mg PO DAILY ascorbic acid (vitamin C) (Vitamin C) 500 mg PO DAILY aspirin 81 mg PO DAILY bisacodyl (Dulcolax (bisacodyl)) 10 mg (2 x 5 mg) PO BEDTIME blood sugar diagnostic (FreeStyle Lite Strips) As directed cetirizine 10 mg PO DAILY cholecalciferol (vitamin D3) (Vitamin D3) 25 mcg PO DAILY ciclopirox 0.77% 1 appl topical BID citalopram 20 mg PO DAILY dextromethorphan polistirex ER (Delsym 12 hour) 10 mL PO BEDTIME PRN diclofenac sodium 1% 4 grams topical Q6H PRN docusate sodium 200 mg (2 x 100 mg) PO BEDTIME famotidine (Pepcid) 20 mg PO BEDTIME ferrous sulfate 325 mg PO DAILY@1600 folic acid 0.8 mg PO DAILY glucose 16 grams PO Q15M PRN insulin glargine (Lantus Solostar U-100 Insulin) 13 units subcut DAILY@1700 insulin lispro (Humalog KwikPen (U-100) Insulin) 1 sliding scale dose See Protocol subcut TIDAC ipratropium-albuterol 0.5 mg-3 mg(2.5 mg base)/3 mL 3 mL inhalation BID 30 days levothyroxine 112 mcg PO DAILY@0600 fhzhmq-gfvaizne-sqqfaag 24,000-76,000 -120,000 unit (Creon) 1 cap PO QID lorazepam 0.5 mg orally 1-2 tabs prn 1 hour before the procedure PRN; metoprolol succinate ER 25 mg See Protocol PO BEDTIME nystatin 1 appl topical BID PRN omeprazole 20 mg PO DAILY@0630 ondansetron 4 mg PO Q8H PRN peg 400-propylene glycol (PF) 0.4-0.3 % (Systane (PF)) 1 drp ophthalmic (eye) QID PRN pen needle, diabetic (Comfort EZ Pen [place]) As directed pen needle, diabetic, safety (True Comfort Safety Pen Needle) As directed polyethylene glycol 3350 (Miralax) 17 grams PO DAILY simvastatin 20 mg PO BEDTIME sodium zirconium cyclosilicate (Lokelma) 5 grams PO MOWEFR tamsulosin 0.8 mg (2 x 0.4 mg) PO DAILY@1700 90 days zinc oxide-cod liver oil 40 % (Desitin) 1 appl topical DAILY HPI Comments Details: Bernard has been referred for evaluation of chronic disease and hyperkalemia. Bernard is well known to me. He has previously seen in 2020. He has a history of Down syndrome and diabetes mellitus complicated by chronic disease. He has significant proteinuria in the setting of longstanding diabetes medicine the working diagnosis is diabetic kidney disease. Serum creatinine has been fluctuating between 1.5 and 1.7 mg/dL. Recently serum creatinine was found to be at 2.0. He has also had recurrent episodes of hyperkalemia. Last month potassium was 5.7 however about a week ago potassium was 2.0. He has been referred for further evaluation. He is being followed by urology for BPH and a history of meatal stenosis. In the past he had no evidence of obstructive uropathy based on imaging studies. Today was accompanied by caregiver. No specific complaints today. No nausea vomiting. No diarrhea constipation. He is on MiraLax and has bowel movements every day. No shortness of breath cough or expectoration. No urine symptoms. No edema no fever no rash. 01/31/24;Amlodipine discontinued 05/01/24 ;History obtained from director of health care marketing ;Home BP around 140; Blood sugar sub optimal ;A1C at 9.4 % 09/15/24 c/o Right flank pain ;No urinary symptoms 01/01/25 44-year-old male presenting for follow-up regarding kidney function post-hospitalization for pancreatities. He has recently been treated for pancreatitis and experienced an adverse reaction to Doxocycline An alternative antibiotic regimen was initiated, leading to significant health improvement. Upon discharge, he was placed on both an antibiotic, which has been completed, and an antiemetic for suspected drug-induced nausea. He reports a recent decline in his kidney function based on lab results, though imaging studies performed, including MRI and CT scans, indicate no structural kidney disease.No obstruction His current medication regimen, which the patient follows diligently, includes drugs such as Amlodipine, Vitamin D, and Metoprolol. 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 Goldstein, who prescribed an inhaler to manage the symptoms. The wheezing was not further elaborated upon during the visit. In terms of lifestyle, the patient has made dietary changes to include more fresh vegetables and reduce processed foods, which is part of his preventative care measures. He has also been advised to increase his water intake to support kidney health. [facility] Medical History Cellulitis Constipation Ascites Pericardial effusion Urethral meatal stenosis Mental and behavioral problem Renal insufficiency Hypercholesterolemia Down syndrome GERD (gastroesophageal reflux disease) BPH (benign prostatic hyperplasia) Hypothyroid Anxiety and depression Pseudoseizures Diabetes mellitus type 1 Surgical History Hx of cataract surgery Family History Father Medical history unknown Mother Medical history unknown Maternal Grandfather Prostate cancer Social History Household Members: Other Household Members Other:: jail Housing: Other Housing Other:: jail Do you presently have visiting nurse or other home services: No Unable to assess alcohol history related to: Unable to respond Alcohol intake: never Comment: 1:1 Sitter Patient Tobacco Use Status: Never used Tobacco e-Cigarette/Vaping Use: Never Used Second Hand Smoke Exposure: No service: No Current occupational status: disabled Cognitive needs: No Hearing needs: No Vision needs: No Physical Exam Vital Signs: Last Vital Signs Pulse 69 03/05/25 13:15 BP 150/70 H 03/05/25 13:15 Pulse Ox 98 03/05/25 13:15 Oxygen Delivery Method Room Air 03/05/25 13:15 BMI result Body Mass Index 28.1 Const General: comfortable Nutritional Appearance: well nourished Orientation/consciousness: patient oriented x3 HEENT Head: No normal to inspection Mouth: moist mucous membranes Neck Neck: Yes supple and Yes no JVD Resp Auscultation: clear to auscultation bilaterally, no rales and rub present Cardio Jugular venous distension: no JVD Palpation: no palpable S3 and no palpable S4 Heart sounds: no rubs GI Palpation (GI): Soft to palpation and nontender Percussion: No Fluid wave present General: Yes no CVA tenderness Back/Spine/Pelvis Back: no CVA tenderness Skin General skin exam: no rashes or lesions noted Neuro General: patient oriented x3 Extrem General: Yes no pedal edema and No clubbing Results Reviewed Nephrology Results: Sodium, (135-145) 138 mmol/L 03/04/25 Potassium, (3.3-5.1) 4.5 mmol/L 03/04/25 Chloride, (96-108) 109 mmol/L H 03/04/25 Carbon Dioxide, (22-29) 25 mmol/L 03/04/25 BUN, (9-16) 40 mg/dL H 03/04/25 Creatinine, (0.5-1.4) 2.70 mg/dL H 03/04/25 Calcium, (8.4-10.2) 7.8 mg/dL L Δ 03/04/25 Renal US 01/02/24 Assessment & Plan Assessment & Plan (1) Hyperkalemia: Code(s): E87.5 - Hyperkalemia Category: Medical (2) Renal insufficiency: Code(s): N28.9 - Disorder of kidney and ureter, unspecified Category: Medical (3) CKD (chronic kidney disease): Code(s): N18.9 - Chronic kidney disease, unspecified Category: Medical Plan . 44-year-old man with Down syndrome and longstanding diabetes mellitus has chronic disease. gradual increase in creatinine with hyperkalemia. CKD is probably due to diabetic kidney disease. Nephrotic range proteinria history of meatal stenosis and phimosis Watch for urinary retention Clinically there is no evidence of obstruction at this time. Being followed by Urology Creatinine is trending up No s/s of uremia Fluid status acceptable Renal ultrasound reported normal Was on low-dose of ADRIANA-inhibitor for renal protection. Stopped due to Hyperkalemia and LOW BP Goal is to slow the progression of kidney disease Continue to avoid nephrotoxic agents including NSAIDs. Bump in BUN /Cr post pancreatitis Possible hypoperfusion No obstruction based on recent USG/CT Hyperkalemia is due to decreased potassium excretion in the setting of CKD. Needs to stay on low-potassium diet Keep Lokelma 5 g to be taken 3 times a week. Unable to add Lisinopril due to High K Follow potassium Vitamin-D deficiency HTN - BP acceptable Reportedly BP is well controlled at home as per director of health care marketing Keep Amlodipine 5 mg DAILY and titrate to 10 mg QD if BP stays above 140 mmHG Hypothyroidism TSH is elevated On Levothyroid and being followed by Endocrine Orders: Orders Basic Metabolic Panel 3 Months N18.9 - Chronic kidney disease, unspecified Complete Blood Count no Diff Today N18.9 - Chronic kidney disease, unspecified Coding Level of Care Code Est Pt Level 4 (50361) Diagnoses Hyperkalemia E87.5 Renal insufficiency N28.9 CKD (chronic kidney disease) N18.9
--- OUTSIDE RECORDS SUMMARY | 2025-03-05 14:06 | XMS_ITS | Clinical Summary ---
Author Organization [facility] Address [address] [place] [address] Phone Care Team Providers Care Social Media Designer Name Role Phone Boris Mcgowan MD Primary Care Provider [phone] Allergies Active Allergy Reactions Criticality Noted Date [...] Active ferrous sulfate 325 mg (65 mg [place] iron) EC tablet Take 325 mg by [...] nephropathy Use as instructed to test glucose. Lucidity (Member[employer]) Talking monitor, for Day program use 1 [...] with glycemic control. [facility] Follows with podiatry. Will call for [...] Problem Noted Date Diagnosed Date Resolved Date [facility] (current) use of insulin 10/19/2022 04/24/2023 Encounters Date Type Department Care Team Description 02/08/2025 Telephone [facility] [place] [address] [place] [address] [place] [address] María Jessica PA-C high fasting glucose levels 01/27/2025 Telephone [facility] [place] [address] [place] [address] [place] [address] Yulisa Zelaya RN medical problem 01/14/2025 Telephone [facility] [place] [address] [place] [address] [place] [address] Jade Cano MD High sugars (High sugars 454--531) 01/01/2025 Telephone [facility] [place] [address] [place] [address] [place] [address] María Jessica PA-C 12/25/2024 Telephone [facility] [address] [place] [address] Jade Cano MD Reporting High sugars (Reporting High sugars) 12/10/2024 Telephone [facility] [address] [place] [address] Jade Cano MD Insulin Orders 12/04/2024 Telephone [facility] [place] [address] [place] [address] Laura Linder MA 12/03/2024 10:20 AM EDT - 12/03/2024 11:59 PM EDT Hospital Encounter [facility] [address] [place] [address] María Jessica PA-C Discharge Disposition: Home or Self Care 12/03/2024 9:20 AM EDT Office Visit [facility] [address] [place] [address] María Jessica PA-C Type 1 diabetes mellitus [...] AM EDT Office Visit [facility] [address] [place] [address] María Jessica PA-C [address] [place] [address] 06/04/2025 11:40 AM EST Office Visit [facility] [address] [place] [address] Jade Cano MD [address] [place] [address] 09/02/2025 10:00 AM EST Office Visit [facility] [address] [place] [address] Jade Cano MD [address] [place] [address] Health Maintenance Due Date Last Done Comments [...] EDT) ALT 12 0 - 40 U/L [facility] Blood 12/03/2024 10:3 5 AM EDT 12/03/2024 10:40 AM EDT us María Jessica PA-C LAB BLOOD ORDERABL ES Final Result [facility] [address] [place] [address] * Aspartate aminotransferase (AST) (12/03/2024 10:35 AM EDT) AST 21 0 - 37 U/L [facility] Blood 12/03/2024 10:3 5 AM EDT 12/03/2024 10:40 AM EDT María Jessica PA-C LAB BLOOD ORDERABL ES Final Result [address] [address] * (ABNORMAL) Hemoglobin A1c (12/03/2024 10:35 AM EDT) HEMOGLOBIN A1C 8.4(H) 4.3 - 5.8 % [facility] Blood 12/03/2024 10:3 5 AM EDT 12/03/2024 10:40 AM EDT María Jessica PA-C LAB BLOOD ORDERABL ES Final Result Performing Organization Address City/[facility]/ZIP Co de Phone Number [address] [address] * (ABNORMAL) Basic metabolic panel (12/03/2024 10:35 AM EDT) SODIUM 136 133 - 146 mmol/L [facility] CHLORIDE 104 96 - 108 mmol/L [facility] POTASSIUM 5.3(H) 3.3 - 5.1 mmol/L [facility] CO2 26 21 - 35 mmol/L [facility] BUN 41(H) 6 - 19 mg/dL [facility] CREATININE 2.20(H) 0.5 - 1.5 mg/dL [facility] GLUCOSE 159(H) 70 - 99 mg/dL [facility] CALCIUM 8.4 8.4 - 10.3 mg/dL [facility] EGFR 37(L) >59 mL/min/1.7 3m2 [facility] Comment:Estimated glomerular filtration rate calculated using the CKD-EPI refit equation. ANION GAP 11 10 - 20 mmol/L [facility] Blood 12/03/2024 10:3 5 AM EDT 12/03/2024 10:40 AM EDT us María Jessica PA-C LAB BLOOD ORDERABL ES Final Result Performing Organization Address [facility]/ZIP Co de Phone Number [address] [address] * TSH with reflex (09/12/2024 10:45 AM EST) TSH 4.00 0.27 - 4.20 uIU/mL [facility] Blood 09/12/2024 10:4 5 AM EST 09/12/2024 10:52 AM EST Jade Cano MD LAB BLOOD ORDERABLES F inal Result Performing Organization Address [facility] Co de Phone Number [address] [address] from Last 3 Months or Most Recently Relevant to Health Maintenance Insurance [facility] MEDICARE PART A & B Member Subscriber Plan / Payer (Ef fective 2017-Present) Name:Bernard Navarro Member ID:[id number] Relation to Subscriber:Self Name:Bernard Navarro Subscriber ID:[id number] Payer ID:[id number] Group ID:Not on file Type:Medicare Address: [employer] [facility] [address] [place] [address] [place] & B [facility] MEDICARE PART A & B Care Teams Social Media Designer Relationship Specialty Start Date End Date Boris Mcgowan MD [address] [place] [phone] PCP - General Internal Medicine 09/20/22 Additional Source Comments The information contained in this document represents components of the legal health record. It is not the complete legal health record.[facility]
--- OUTSIDE RECORDS SUMMARY | 2025-03-05 14:06 | XMS_ITS | Clinical Summary ---
Author Organization [facility] Facility Address [address] [address] Care Team Providers Care Community Engagement Manager Name Role Phone Boris Mcgowan MD Primary Care Provider [phone] Allergies No known active allergies Medications aspirin [...] Medicaid [place] Medicare [place] Care Teams Community Engagement Manager Relationship Specialty Start Date End Date Boris Mcgowan MD [address] [place] PCP - General 08/02/20
== END 2025-03-05 13:29 | disposition home or self-care (01) ==
LOC: HO.HKA 13:13
PROVIDERS: PCP Internal Medicine; Visit Provider Internal Medicine Hypertension Specialist
DX: E87.5 Hyperkalemia (principal); E11.22 Type 2 diabetes mellitus with diabetic chronic kidney disease; N18.9 Chronic kidney disease, unspecified; N28.9 Disorder of kidney and ureter, unspecified
CPT/HCPCS: 99214

== ENCOUNTER → 2025-03-05 13:12 | Outpatient (BNVA) | payer MEDICARE, MEDICAID, SELFPAY | PROVIDERS: PCP Internal Medicine; Visit Provider Internal Medicine Hypertension Specialist | DX: E10.22 Type 1 diabetes mellitus with diabetic chronic kidney disease (principal); N18.9 Chronic kidney disease, unspecified; N28.9 Disorder of kidney and ureter, unspecified; E87.5 Hyperkalemia | CPT/HCPCS: 99212 ==

== ENCOUNTER 2025-03-12 10:12 | Outpatient (AMB) | payer MEDICARE, MEDICAID, SELFPAY ==
--- OUTSIDE RECORDS SUMMARY | 2025-03-10 09:40 | XMS_ITS | Encounter Summary ---
Author Organization [facility] Address [address] [place] [phone] Phone Care Team Providers Care Automotive Instructor Name Role Phone Boris Mcgowan MD Primary Care Provider [phone] Encounter Details Date Type Department Care Team (Late st Contact Info) Description 03/10/2025 9:40 AM EDT Office Visit [facility] [address] [place] [phone] María Jessica PA-C [address] [place] [address] [email or web address] 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) Social History Tobacco Use Types Packs/Day Years Used Date Smoking Tobacco: Never Smokeless Tobacco: Never Alcohol Use Standard Drinks/Week Comments Never 0 [...] AM EDT Sexual Orientation Not on file documented as of this encounter Last Filed Vital Signs Vital Sign Reading Time Taken Comments Blood Pressure 118/70 03/10/2025 9:31 AM EDT Pulse 68 03/10/2025 9:31 AM EDT Temperature - - Respiratory Rate - - Oxygen Saturation 99% 03/10/2025 9:31 AM EDT Inhaled Oxygen Concentration - - Weight 58.1 kg (128 lb) 03/10/2025 9:31 AM EDT Height 139 cm (4' 6.72 ) 03/10/2025 9:31 AM EDT Body Mass Index 30.05 03/10/2025 9:31 AM EDT documented in this encounter Patient Instructions * Patient Instructions* María Jessica PA-C - 03/10/2025 9:40 AM EDT Avoid using the legs for insulin injections for at least the next couple of weeks to try and give them a break and see if the scar tissue will go down, can start using again after March 23 at the earliest When the dexcoms fail or don't work when putting them computational mathematician Dexcom to have them replaced, customer service number is documented in this encounter Progress Notes * María Jessica PA-C - 03/10/2025 9:40 AM EDT Subjective: Patient ID: Bernard Navarro is a 44 y.o. male. In the interval since the last visit, he had an MRI last week, done by GI, to ensure everything is doing good. Hemoglobin A1C: Reviewed last A1C from 12/14 was 8.4%, will order labs. Blood glucose monitoring: checking 4x a day via fingr stick has been with his dexcom. Hypoglycemia: none recently, had some lowswhere he he needed help to correct. Problems with medications: has been without the dexcom for a few weeks,. Recent weight changes: lost 4 pounds since 12/14. Diet : 3 meals a day, 1-3 snacks a day, healthy choices, portion control is good. Activity: walking in the park, doing Wii dance at home. Optho: up to date, scheduled to see in April. Foot: no issues, seeing podiatry. 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 ascorbic Acid (VITAMIN C) 500 mg CpER, Take 1 capsule by mouth. aspirin 81 MG EC tablet, 1 tablet Orally Once a day for 30 day(s) azithromycin (ZITHROMAX) 250 MG tablet, blood sugar diagnostic Strp strips, Inject 1 each under the skin 6 (six) times a day. Use as directed to monitor glucose once daily, to go with Embrace meter, to be used @ Day Program blood-glucose meter kit, Use as instructed to test glucose. Embrace Talking monitor, for Day program use blood-glucose meter,continuous Misc, by Miscellaneous route as needed. blood-glucose sensor (DEXCOM G6 SENSOR MISC), 1 each by Miscellaneous route. blood-glucose transmitter (DEXCOM G6 TRANSMITTER MISC), 1 each by Miscellaneous route every 3 (three) months. cetirizine (ZYRTEC) 10 MG tablet, 1 tablet Orally Once a day for 30 day(s) cholecalciferol, vitamin D3, 25 mcg (1,000 unit) capsule, Take 2,000 Units by mouth daily. ciclopirox (CICLODAN) 0.77 % cream, 1 APPLICATION EXTERNALLY TWICE A DAY TO THE AFFECTED AREA FOR 30 DAYS for 30 citalopram (CELEXA) 20 MG tablet, 1 tablet Orally Once a day for 30 day(s) COMFORT EZ PEN NEEDLES 32 gauge x 5/32 Ndle, Inject 1 each under the skin 4 (four) times a day. CREON 24,000-76,000 -120,000 unit CpDR, Take 24,000 units of lipase by mouth 3 (three) times a day with meals. dextrose (GLUTOSE) 40 % gel, Take 15 g by mouth once as needed (hypoglycemia, may repeat as per protocol). diclofenac sodium (VOLTAREN) 1 % Gel, Apply topically 4 (four) times a day. docusate sodium (COLACE) 50 MG capsule, Take 50 mg by mouth 2 (two) times a day. ergocalciferol (DRISDOL) 50,000 unit capsule, Take 50,000 Units by mouth once a week. famotidine (PEPCID AC) 20 MG tablet, Take 20 mg by mouth 2 (two) times a day. ferrous sulfate 325 mg (65 mg nisqually iron) EC tablet, Take 325 mg by mouth daily with breakfast. folic acid (FOLVITE) 800 MCG tablet, 1 tablet Orally Once a day for 30 day(s) FREESTYLE LITE Strp strips, Use as directed to monitor glucose, test up to 4 times/day (Patient nottaking: Reported on 12/03/2024) glucagon (BAQSIMI) 3 mg/actuation Mears, 1 spray by Nasal route once as needed (hypoglycemia when cannot safely take anything orally). GLUCAGON 1 mg injection, glucose 4 GM chewable tablet, Take 4 tablets (16 g total) by mouth as needed (for hypoglycemia). HUMALOG KWIKPEN INSULIN 100 unit/mL kwikpen, 2-14 units, via scale, subcutaneously, tid AC insulin glargine (LANTUS SOLOSTAR U-100 INSULIN) 100 unit/mL (3 mL) InPn injection pen, 11 units, or as directed, plus 2 units to prime needle with each dose (Patient taking differently: 13 units, oras directed, plus 2 units to prime needle with each dose) ipratropium-albuteroL (DUONEB) 0.5-3 mg (2.5 mg base)/3 mL nebulizer solution, INHALE 1 VIAL BY MOUTH TWICE A DAY levothyroxine (SYNTHROID, LEVOTHROID) 112 MCG tablet, Take 112 mcg by mouth every morning. LOKELMA 5 gram, Take 5 g by mouth 3 (three) times a week. LORazepam (ATIVAN) 0.5 MG tablet, metoprolol succinate (TOPROL-XL) 25 MG 24 hr tablet, nystatin (NYSTOP) powder, Apply 1 Application topically daily. omeprazole (PRILOSEC) 20 MG capsule, Take 20 mg by mouth daily. PURE COMFORT SAFETY LANCETS 30 gauge Misc, Inject 1 each under the skin 4 (four) times a day beforemeals and nightly. simvastatin (ZOCOR) 20 MG tablet, Take 20 mg by mouth nightly at bedtime. STOOL SOFTENER-LAXATIVE 8.6-50 mg, tamsulosin (FLOMAX) 0.4 mg Cap, 2 capsules. transparent dressings (TEGADERM) 3 1/2 X 4 Bndg, Apply 1 each topically Every 10 Days. To cover the dexcom G6 CGM wheat dextrin/calcium/aspartam (BENEFIBER + CALCIUM SUGAR-FREE ORAL), Benefiber zinc oxide/cod liver oil (DESITIN TP), Desitin Review of Systems Constitutional: Negative for fatigue and unexpected weight change. Eyes: Negative for unexpected vision change. Respiratory: Positive for shortness of breath (with exertion). Negative for cough. Cardiovascular: Negative for chest pain and leg swelling. Gastrointestinal: Negative for constipation and diarrhea. Genitourinary: Positive for nocturia (1-2x). Neurological: Negative for numbness (tingling or paraesthesia). Psychiatric/Behavioral: Negative for sleep disturbance. Musculoskeletal: No leg cramps Objective: Physical Exam Vitals reviewed. Constitutional: Appearance: Normal appearance. Skin: General: Skin is warm. Neurological: Mental Status: He is alert and oriented to person, place, and time. Psychiatric: Mood and Affect: Mood normal. Behavior: Behavior normal. Here with Ellen who helps with the history Assessment/Plan: Problem List Items Addressed This Visit Type 1 diabetes mellitus with nephropathy - Primary Control is reasonable but not optimal based upon the patient's SMBG readings. He had a couple lows a few weeks ago where he needed glucagon to help bring his levels up as he was fighting the staff totake anything orally. Ellen is not sure what caused the low reaction as his levels were in the high 60's to lows 70's when these occurred. He has been without sensor supplies, will reach out to [facility] to see about getting him his supplies. With his fasting glucose levels running higher, will increase his lantus to help with the higher fasting levels. Reviewed importance of insulin injection site and avoid the use of his thighs for now. Continue to work on eating healthy and being active. To call or message with any issues managing his glucose levels. Up to date with ophtho. Seespodiatry. Labs ordered Relevant Medications insulin glargine (LANTUS SOLOSTAR U-100 INSULIN) 100 unit/mL (3 mL) InPn injection pen Other Relevant Orders Hemoglobin A1c * Jade Cano MD - 03/10/2025 9:40 AM EDT Subject Line: Provider Attestation I have reviewed the notes, assessments, and/or procedures performed by NOEMÍ Rushing. I concur with her documentation of Bernard Ramon. documented in this encounter Miscellaneous Notes * Assessment & Plan Note - Maíra Jessica PA-C - 03/10/2025 10:19 AM EDTAssociated Problem(s): Type 1 diabetes mellitus with nephropathy Control is reasonable but not optimal based upon the patient's SMBG readings. He had a couple lows a few weeks ago where he needed glucagon to help bring his levels up as he was fighting the staff totake anything orally. Ellen is not sure what caused the low reaction as his levels were in the high 60's to lows 70's when these occurred. He has been without sensor supplies, will reach out to [facility] to see about getting him his supplies. With his fasting glucose levels running higher, will increase his lantus to help with the higher fasting levels. Reviewed importance of insulin injection site and avoid the use of his thighs for now. Continue to work on eating healthy and being active. To call or message with any issues managing his glucose levels. Up to date with ophtho. [place]. Labs ordered documented in this encounter Plan of Treatment Upcoming Encounters Date Type Department Care Team (Late st Contact Info) Description 06/04/2025 11:40 AM EST Office Visit [facility] [address] [place] [address] Jade Cano MD [address] [place] [phone] 09/02/2025 10:00 AM EST Office Visit [facility] [address] [place] [address] Jade Cano MD [address] [place] [phone] 12/08/2025 9:20 AM EDT Office Visit [facility] [address] [place] [address] María Jessica PA-C [address] [place] [phone] documented as of this encounter Visit Diagnoses Diagnosis Type 1 diabetes mellitus with nephropathy- Primary documented in this encounter Care Teams Automotive Instructor Relationship Specialty Start Date End Date Boris Mcgowan MD [address] [place] [address] [address] [place] [phone] PCP - General Internal Medicine 09/20/22 documented as of this encounter Additional Source Comments The information contained in this document represents components of the legal health record. It is not the complete legal health record.[facility]
[2025-03-12 10:27] VITALS: BP 134/60; PULSE 72; O2SAT 98; BMI 27.9
--- NOTE | 2025-03-12 10:27 | AM.OFFVISMDC ---
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 An [facility] Medical History (Updated 03/12/25 @ 10:47 by Boris Mcgowan MD) Renal insufficiency Renal insufficiency Cellulitis Constipation Ascites Pericardial effusion Urethral meatal stenosis Mental and behavioral problem Hypercholesterolemia Down syndrome GERD (gastroesophageal reflux disease) BPH (benign prostatic hyperplasia) Hypothyroid Anxiety and depression Pseudoseizures Diabetes mellitus type 1 Surgical History Hx of cataract surgery Family History Father Medical history unknown Mother Medical history unknown Maternal Grandfather Prostate cancer Social History Household Members: Other Household Members Other:: senior care Housing: Other Housing Other:: senior care Do you presently have visiting nurse or other home services: No Unable to assess alcohol history related to: Unable to respond Alcohol intake: never Comment: 1:1 Sitter Patient Tobacco Use Status: Never used Tobacco e-Cigarette/Vaping Use: Never Used Second Hand Smoke Exposure: No service: No Current occupational status: disabled Cognitive needs: No Hearing needs: No Vision needs: No Questionnaire Medicare Wellness Checkup What gender do you identify with?: male During the past 4 weeks, how much have you been bothered by emotional problems such as feeling anxious, depressed, irritable, sad or downhearted, and blue?: slightly During the past 4 weeks, has your physical & emotional health limited your social activities with family, friends, neighbors, or groups?: moderately During the past 4 weeks, how much bodily pain have you generally had?: moderate pain During the past 4 weeks, was someone available to help you if you needed & wanted help?: yes, as much as I wanted During the past 4 weeks, what was the hardest physical activity you could do for at least 2 minutes?: heavy Can you get to places out of walking distance without help? (For eg., can you travel alone on buses, taxis or drive your car?): No Can you go shopping for groceries or clothes without someone's help?: No Can you prepare your own meals?: No Can you do your housework without help?: No Because of any health problems, do you need the help of another person with your personal care needs such as eating, bathing, dressing or getting around the house?: No Can you handle your own money without help?: No During the past 4 weeks, how would you rate your health in general?: good During the past 4 weeks how have things been going for you?: good & bad parts about equal Are you having difficulties driving your car?: not applicable, I don't use a car Do you always fasten your seat belt when you are in a car?: yes, usually During past 4 weeks, have you been bothered by the following: never: Sexual problems?, Trouble eating well? and Problems using the telephone? and sometimes: Falling or dizzy when standing up, Teeth or denture problems? and Tiredness or fatigue? Have you fallen 2 or more times in the past year?: Yes Are you afraid of falling?: Yes Are you a smoker?: no During the past 4 weeks, how many drinks of wine, beer, or other alcoholic beverages did you have?: no alcohol at all Do you exercise for about 20 minutes 3 or more times a week?: yes, some of the time Have you been given information to help with the following?: yes: Hazards in your house that might hurt you? and yes: Keeping track of your medications? How often do you have trouble taking medicines the way you have been told to take them?: I seldom take medications as prescribed How confident are you that you can control & manage most of your health problems?: not very confident What is your race?: White PHQ-9 Over the last 2 weeks, how often have you been bothered by any of the following problems? 1. Little interest or pleasure in doing things: more than half the days 2. Feeling down, depressed, or hopeless: several days 3. Trouble falling or staying asleep, or sleeping too much: several days 4. Feeling tired or having little energy: more than half the days 5. Poor appetite or overeating: not at all 6. Feeling bad about yourself - or that you are a failure or have let yourself or your family down: not at all 7. Trouble concentrating on things, such as reading the newspaper or watching television: more than half the days 8. Moving or speaking so slowly that other people could have noticed. Or the opposite - being so fidgety or restless that you have been moving around a lot more than usual: several days 9. Thoughts that you would be better off or of hurting yourself in some way: not at all Total score: 9 74992 - PHQ-9 Billing: Yes Source: Developed by Drs. Rhys Carvalho, Bernadette Flanagan, Sundeep Gee and colleagues, with an educational odilon from [employer]. Review of Systems Const Denies poor appetite and Denies weakness Eyes Denies no additional complaints ENT Reports Normal hearing present, Denies dizziness, Denies nasal congestion, Denies tinnitus and Denies sore throat Card Denies chest pain, Denies syncope, Denies rapid heart rate and Denies dyspnea Resp Denies cough and Denies dyspnea GI Denies change in stool character, Reports constipation, Denies diarrhea, Denies nausea and Denies vomiting Denies dysuria and Denies urinary frequency Neuro Reports Normal hearing present, Denies confusion, Denies dizziness, Denies syncope and Denies weakness Psych Denies confusion Physical Exam Vital Signs: Last Vital Signs Pulse 72 03/12/25 10:27 BP 134/60 03/12/25 10:27 Pulse Ox 98 03/12/25 10:27 BMI result Body Mass Index 27.9 Const General: No confusion Orientation/consciousness: No confusion HEENT Head: Yes normocephalic Ears: external ears normal and TM's normal bilaterally Face and sinus: Yes normal facial exam Mouth: moist mucous membranes Throat: Yes tonsils normal Eyes Conjunctivae: conjunctivae normal Pupils: Equal, round and reactive pupils present and Pupil accommodation reflex normal Direct Ophthalmoscopy: normal light reflex Neck Neck: No lymphadenopathy Thyroid: Thyroid normal Chest Chest palpation & inspection: normal inspection of the chest Resp Effort & Inspection: normal respiratory effort and no audible wheezes Auscultation: clear to auscultation bilaterally, no crackles, no wheezes and lung sounds not diminished Cardio Rate: regular rate Rhythm: regular rhythm Peripheral pulses: radial pulses present and dorsalis pedis present GI Palpation (GI): no masses Auscultation: normal bowel sounds and normoactive bowel sounds Rectal Exam - Male: Yes deferred Skin General skin exam: no rashes or lesions noted Rashes: no rashes Neuro General: No confusion Cranial nerves: Yes Equal, round and reactive pupils present and Yes Normal hearing present Cognition (Neuro): normal cognition Gait exam (Neuro): Normal gait present Motor exam (neuro): 5/5 motor strength present throughout Deep tendon reflexes (DTR's): Right brachioradialis reflex intensity grade: 2+, Left brachioradialis reflex intensity grade: 2+, Right patellar reflex intensity grade: 2+ and Left patellar reflex intensity grade: 2+ Extrem General: No edema Assessment & Plan Assessment & Plan (1) Medicare annual wellness visit, subsequent: Code(s): Z00.00 - Encounter for general adult medical examination without abnormal findings Plan: Patient is advised to eat healthy, keep well hydrated, keep active and have adequate sleep. (2) IPF (idiopathic pulmonary fibrosis): Code(s): J84.112 - Idiopathic pulmonary fibrosis Plan: Continue to follow-up with Pulmonary on albuterol inhaler as needed (3) Anemia: Code(s): D64.9 - Anemia, unspecified Plan: Continue to monitor (4) BPH (benign prostatic hyperplasia): Code(s): N40.0 - Benign prostatic hyperplasia without lower urinary tract symptoms Qualifiers: Lower urinary tract symptom detail: urinary frequency Lower urinary tract symptom presence: symptoms present Qualified Code(s): N40.1 - Benign prostatic hyperplasia with lower urinary tract symptoms; R35.0 - Frequency of micturition Plan: Patient follows up with urology on tamsulosin (5) CKD (chronic kidney disease): Code(s): N18.9 - Chronic kidney disease, unspecified Plan: Keep well hydrated avoid NSAIDs continue to monitor. On Lokelma for the hyperkalemia and Zelalem inhibitor can not be given (6) GERD (gastroesophageal reflux disease): Code(s): K21.9 - Gastro-esophageal reflux disease without esophagitis Qualifiers: Esophagitis presence: without esophagitis Qualified Code(s): K21.9 - Gastro-esophageal reflux disease without esophagitis Plan: Avoid the foods that causes that usually spicy foods, tomato products, juices, coffee, soda and foods that your sensitive to. After eating do not lie down, allow 3-4 hours before in lie down. And keep the head of bed above 30 degrees to avoid the acid from going up. (7) Hypothyroid: Code(s): E03.9 - Hypothyroidism, unspecified Qualifiers: Hypothyroidism type: acquired Qualified Code(s): E03.9 - Hypothyroidism, unspecified Plan: Continue with thyroid medication (8) Diabetes mellitus type 1: Comment: YOLETTE April 2018, Dr. Salcedo Code(s): E10.9 - Type 1 diabetes mellitus without complications Qualifiers: Diabetes mellitus complication status: with hyperglycemia Qualified Code(s): E10.65 - Type 1 diabetes mellitus with hyperglycemia Plan: Decrease the amount of carbohydrate intake, pasta, bread, rice and potatoes are all sugar and that is aside from all the sweet stuff, remember that fruits are good but they are Sweet also. Continue with insulin and endocrinology follow-up (9) Down syndrome: Code(s): Q90.9 - Down syndrome, unspecified (10) Hypertension: Code(s): I10 - Essential (primary) hypertension Plan: Continue with blood pressure medication. Decrease salt intake and exercise on metoprolol 25 mg once a day amlodipine 5 mg once a day (11) Hypercholesterolemia: Code(s): E78.00 - Pure hypercholesterolemia, unspecified Plan: Avoid fried foods, chicken skin, eggs, butter margarine, pastries and meat. Be it pork or beef they have a lot of cholesterol LDL goal of less than 100 and triglyceride of less than 150 takes simvastatin 20 mg once a day with amlodipine will need to discontinue change Plan History of Present Illness The patient is a 44-year-old male presenting for an annual wellness visit. The patient has a history of Down syndrome and diabetes mellitus type 1, which has contributed to the development of chronic kidney disease secondary to diabetic nephropathy. He follows up with nephrology and was last seen on March 05 for monitoring of his renal function, which is currently stable with a creatinine level of 2.7 mg/dL. The patient also has a history of hypothyroidism, managed with thyroid medication, and benign prostatic hyperplasia, for which he is on tamsulosin. He has been advised to monitor for urinary retention due to neurogenic bladder. The patient has idiopathic pulmonary fibrosis and follows up with pulmonology. He was treated for bronchitis with prednisone and Levaquin and continues to use an albuterol inhaler as needed. The patient experienced pancreatitis, which was associated with a bump in pancreatic enzymes, and was hospitalized for four days. An MRI of the abdomen showed mild fatty liver but no pancreatic enlargement. He has hypercholesterolemia, with the last LDL measurement at 122 mg/dL in July 2024. The patient was on simvastatin, which was discontinued due to interaction with amlodipine, and switched to atorvastatin. The patient has anemia and mild thrombocytosis, which have been present for a couple of years. He follows up with nephrology for these conditions. Health Maintenance - Vaccinations: Tetanus shot is up to date - Screening: Colonoscopy recommended next year - Lifestyle: Encouraged to engage in physical activity and reduce sedentary behavior Social History - Exercise: Participates in activities such as dancing and walking, but tends to be sedentary at home - Living situation: Has a TV in his room and tends to watch movies frequently Review of Systems - Neurological: Denies headaches or dizziness - Respiratory: Reports cough, denies dyspnea - Gastrointestinal: Reports abdominal pain, denies nausea or vomiting - Dermatological: Reports acne on back and legs - Genitourinary: Reports urinary retention Physical Exam General: Cooperative, healthy appearing, comfortable, no acute distress and well developed Orientation: Patient oriented x3 Limitations: No limitations Head: Normal to inspection Ears: Hearing grossly normal bilaterally Nose: Normal external nose present Face and sinus: Normal facial exam Eyes: Appearance normal, both eyes and all related structures Neck: Normal visual inspection and Yes full ROM Respiratory: Normal respiratory effort and able to speak in complete sentences. Clear to auscultation bilaterally Cardiovascular: Regular rate and rhythm. Normal S1 and S2 GI: Normal to inspection. Soft to palpation and nontender Skin: No rashes or lesions noted Neuro: Patient oriented x3 Extremities: Normal to inspection Results - Labs: Creatinine level at 2.7 mg/dL, anemia, mild thrombocytosis - Imaging: MRI of the abdomen showed mild fatty liver, no pancreatic enlargement Plan The patient will continue to follow up with nephrology for management of chronic kidney disease, with regular monitoring of renal function and creatinine levels. For diabetes mellitus type 1, the patient will maintain insulin therapy and follow up with endocrinology. Management of hypothyroidism will continue with current thyroid medication. The patient will continue tamsulosin for benign prostatic hyperplasia and monitor for urinary retention due to neurogenic bladder. For idiopathic pulmonary fibrosis, the patient will continue to use an albuterol inhaler as needed and follow up with pulmonology. The patient will also continue to monitor respiratory symptoms and seek treatment if bronchitis recurs. The patient will switch from simvastatin to atorvastatin for hypercholesterolemia management, with a goal LDL of less than 100 mg/dL. A follow-up cholesterol test will be conducted in three months. For pancreatitis, the patient will continue to avoid NSAIDs and monitor for any recurrence of symptoms. The patient will also continue to follow dietary recommendations to manage fatty liver. Patient was informed and verbally consented to the use of an ambient scribe for clinic note documentation during this visit. Discussion Notes During the visit, I discussed with the patient the importance of continuing follow-up with nephrology for chronic kidney disease management and maintaining insulin therapy for diabetes mellitus type 1. We reviewed the need to switch from simvastatin to atorvastatin due to drug interaction concerns and set a goal for LDL cholesterol levels. I emphasized the importance of monitoring for urinary retention and respiratory symptoms, and advised on lifestyle modifications to reduce sedentary behavior. Patient Instructions - Continue insulin therapy and follow up with endocrinology for diabetes management. - Take atorvastatin as prescribed and follow up for cholesterol testing in three months. - Use albuterol inhaler as needed and monitor for respiratory symptoms. - Avoid NSAIDs and follow dietary recommendations to manage pancreatitis and fatty liver. - Engage in regular physical activity and reduce time spent sitting. Orders: Orders Lipid Panel 3 Months E78.00 - Pure hypercholesterolemia, unspecified Comprehensive Met. Panel 3 Months E78.00 - Pure hypercholesterolemia, unspecified Free T4 (Free Thyroxine) 3 Months E78.00 - Pure hypercholesterolemia, unspecified Thyroid Stimulating Hormone 3 Months E78.00 - Pure hypercholesterolemia, unspecified Hemoglobin A1c 3 Months E78.00 - Pure hypercholesterolemia, unspecified Complete Blood Count Auto Diff 3 Months E78.00 - Pure hypercholesterolemia, unspecified Medications: New atorvastatin (Lipitor) 10 mg PO DAILY 30 tabs 3RF E78.00 - Pure hypercholesterolemia, unspecified Discontinued simvastatin Discontinued Reason: Doctor's Order 20 mg PO BEDTIME 30 tabs 4RF E10.65 - Type 1 diabetes mellitus with hyperglycemia Quality Reporting (2019) Depression/Bipolar (159/160/161/177) PHQ-9: Total score: 9 Coding Level of Care Code Medicare Subsequent (G0439) Diagnoses Medicare annual wellness visit, subsequent Z00.00 IPF (idiopathic pulmonary fibrosis) J84.112 Anemia D64.9 Benign prostatic hyperplasia with urinary frequency N40.1; R35.0 Lower urinary tract symptom detail: urinary frequency Lower urinary tract symptom presence: symptoms present CKD (chronic kidney disease) N18.9 Gastroesophageal reflux disease without esophagitis K21.9 Esophagitis presence: without esophagitis Acquired hypothyroidism E03.9 Hypothyroidism type: acquired Type 1 diabetes mellitus with hyperglycemia E10.65 Diabetes mellitus complication status: with hyperglycemia Down syndrome Q90.9 Hypertension I10 Hypercholesterolemia E78.00 Additional Codes PHQ-9 - 92600 - PHQ-9 Billing: Yes ([id number])
--- OUTSIDE RECORDS SUMMARY | 2025-03-12 11:40 | XMS_ITS | Clinical Summary ---
Author Organization [facility] Facility Address [address] [address] Care Team Providers Care Custom Miller Name Role Phone Boris Mcgowan MD Primary Care Provider [phone] Allergies No known active allergies Medications aspirin [...] Medicaid [place] Care Teams Custom Miller Relationship Specialty Start Date End Date Boris Mcgowan MD [id number] [place] PCP - General 08/02/20
== END 2025-03-12 11:16 | disposition home or self-care (01) ==
LOC: HO.HMCH 10:13
PROVIDERS: PCP Internal Medicine; Visit Provider Internal Medicine
DX: Z00.00 Encounter for general adult medical examination without abnormal findings (principal); I12.9 Hypertensive chronic kidney disease with stage 1 through stage 4 chronic kidney disease, or unspecified chronic kidney disease; J84.112 Idiopathic pulmonary fibrosis; E10.65 Type 1 diabetes mellitus with hyperglycemia; D64.9 Anemia, unspecified; N40.1 Benign prostatic hyperplasia with lower urinary tract symptoms; R35.0 Frequency of micturition; N18.9 Chronic kidney disease, unspecified; K21.9 Gastro-esophageal reflux disease without esophagitis; E03.9 Hypothyroidism, unspecified; Q90.9 Down syndrome, unspecified; E78.00 Pure hypercholesterolemia, unspecified

== ENCOUNTER → 2025-03-12 10:12 | Outpatient (BNVA) | payer MEDICARE, MEDICAID, SELFPAY | PROVIDERS: PCP Internal Medicine; Visit Provider Internal Medicine | DX: Z00.00 Encounter for general adult medical examination without abnormal findings (principal); J84.112 Idiopathic pulmonary fibrosis; D64.9 Anemia, unspecified; N40.1 Benign prostatic hyperplasia with lower urinary tract symptoms; R35.0 Frequency of micturition; K21.9 Gastro-esophageal reflux disease without esophagitis; E03.9 Hypothyroidism, unspecified; E10.65 Type 1 diabetes mellitus with hyperglycemia; Q90.9 Down syndrome, unspecified; E78.00 Pure hypercholesterolemia, unspecified; I12.9 Hypertensive chronic kidney disease with stage 1 through stage 4 chronic kidney disease, or unspecified chronic kidney disease; E10.22 Type 1 diabetes mellitus with diabetic chronic kidney disease; N18.9 Chronic kidney disease, unspecified | CPT/HCPCS: 96127 ==

== ENCOUNTER 2025-03-17 09:54 | Outpatient (AMB) | payer MEDICARE, MEDICAID, SELFPAY ==
[2025-03-17 09:57] VITALS: BP 156/80; PULSE 73; TEMP 36.3; O2SAT 99; BMI 27.5
--- NOTE | 2025-03-17 09:57 | A.OFFPC_ITS ---
Vital Signs 03/17/25 09:57 Height 4 ft 9 in Weight 127 lb 4 oz BMI 27.5 BP 156/80 H Blood Pressure Location Lt brachial Position Sitting Pulse 73 Pulse Source Pulse Oximeter Temp 97.3 F Temp Source Temporal Artery Scan Pulse Oximetry (%) 99 Oxygen Delivery Method Room Air Intake Visit Reasons: ear wax removal Accompanied by: administrative program specialist Allergies Sulfa (Sulfonamide Antibiotics) (SULFA(SULFONAMIDE ANTIBIOTICS)) Allergy (Intermediate, Verified 03/17/25 09:57) ITCHING doxycycline Adverse Reaction (Intermediate, Verified 03/17/25 09:57) Pancreatitis Tobacco use date assessed: 03/17/25 Dental Screening Dental Screen Date: 03/17/25 Did you have a dental visit in the last 12 months?: Yes Did you have a dental problem in the last 6 months where you did not have access to dental care?: No Was dental information given to patient?: Patient has dentist [facility] Medical History Renal insufficiency Renal insufficiency Cellulitis Constipation Ascites Pericardial effusion Urethral meatal stenosis Mental and behavioral problem Hypercholesterolemia Down syndrome GERD (gastroesophageal reflux disease) BPH (benign prostatic hyperplasia) Hypothyroid Anxiety and depression Pseudoseizures Diabetes mellitus type 1 Surgical History Hx of cataract surgery Family History Father Medical history unknown Mother Medical history unknown Maternal Grandfather Prostate cancer Social History Household Members: Other Household Members Other:: shelter Housing: Other Housing Other:: shelter Do you presently have visiting nurse or other home services: No Unable to assess alcohol history related to: Unable to respond Alcohol intake: never Comment: 1:1 Sitter Patient Tobacco Use Status: Never used Tobacco e-Cigarette/Vaping Use: Never Used Second Hand Smoke Exposure: No service: No Current occupational status: disabled Cognitive needs: No Hearing needs: No Vision needs: No Questionnaire PHQ-9 Over the last 2 weeks, how often have you been bothered by any of the following problems? 1. Little interest or pleasure in doing things: more than half the days 2. Feeling down, depressed, or hopeless: not at all 3. Trouble falling or staying asleep, or sleeping too much: several days 4. Feeling tired or having little energy: several days 5. Poor appetite or overeating: not at all 6. Feeling bad about yourself - or that you are a failure or have let yourself or your family down: not at all 7. Trouble concentrating on things, such as reading the newspaper or watching television: not at all 8. Moving or speaking so slowly that other people could have noticed. Or the opposite - being so fidgety or restless that you have been moving around a lot more than usual: not at all 9. Thoughts that you would be better off or of hurting yourself in some way: not at all Total score: 4 Source: Developed by Drs. Rhys Carvalho, Bernadette Flanagan, Sundeep Gee and colleagues, with an educational odilon from [employer]. Thrive Questionnaire Date Thrive assessed: 10/28/24 I am a: Patient What is your living situation today?: I have a steady place to live Within the past 12 months, did the food you bought not last and you didn't have the money to get more?: Never true Within the past 12 months, did you worry whether your food would run out before you got money to buy more?: Never true Do you have trouble paying for medicines?: No Do you have trouble getting transportation to medical appointments?: No Do you have trouble paying your heating and electricity bill?: No Do you have trouble taking care of your child, family member or friend?: No Do you have trouble with day-to-day activities such as bathing, preparing meals, shopping, managing finances, etc.?: Yes Are you currently unemployed and looking for a job?: No Are you interested in more education?: No Please select the resources that you would like help with: None Currently or been in a relationship where the following occur: No concerns reported THRIVE Score: 0 AUDIT C Alcohol Use Questionnaire (AUDIT-C) 1. How often do you have a drink containing alcohol?: Never 3. How often do you have six or more drinks on one occasion?: Never Total Score: 0 GAGE-7 AMB Questionnaire GAGE-7 Date GAGE - 7 assessed: 07/24/24 Feeling nervous, anxious, or on edge: 1 = Several days Not being able to stop or control worryin = Several days Worrying too much about different things: 0 = Not at all Trouble relaxin = Not at all Being so restless that it is hard to sit still: 0 = Not at all Becoming easily annoyed or irritable: 2 = More than half the days Feeling afraid as if something awful might happen: 0 = Not at all Total GAGE-7 score (0-4 normal; 5-9 mild; 10-14 moderate; 15-21 severe): 4 Source: Developed by Drs. Rhys Carvalho, Bernadette Flanagan, Sundeep Gee and colleagues, with an educational odilon from [employer]. Physical exam (Primary Care) Vital Signs: Last Vital Signs Temp 97.3 F 03/17/25 09:57 Pulse 73 03/17/25 09:57 BP 156/80 H 03/17/25 09:57 Pulse Ox 99 03/17/25 09:57 Oxygen Delivery Method Room Air 03/17/25 09:57 BMI result Body Mass Index 27.5 Tobacco/Smoking Status: Tobacco use Status Tobacco use date assessed 03/17/25 03/17/25 10:02 Patient Tobacco Use Status Never used Tobacco 03/17/25 10:02 e-Cigarette/Vaping Use Never Used 03/17/25 10:02 PHQ-9: PHQ-9 Score PHQ-9: Total score 4 03/17/25 17:21 Thrive Assessment: Date of Thrive Assessment Date Thrive assessed 10/28/24 03/17/25 10:02 Currently or been in a relationship where the following occur: No concerns reported Const Other: bilateral impacted cerumen General: alert; No acute distress Eyes Conjunctivae: conjunctivae normal Resp Auscultation: clear to auscultation bilaterally Cardio Rate: regular rate Rhythm: regular rhythm GI Inspection: Yes normal to inspection Extrem General: Yes normal to inspection and No edema Office Procedures Cerumen Removal From which ear canal was the cerumen removed: bilateral Removal: irrigation, otoscope w/curette, cerumen loop/spoon and other Notes: patient tolerated procedure well, no complications and ear canal clear [id number] Irrigation/Lavage Results AMB Hemoglobin A1c AMB Hemoglobin A1c 9.4 % Last Edit by Tatum Jordan CMA on 03/17/25 10:08 Results Reviewed Results Reviewed: Laboratory Last Values Hgb A1c (Clinic) 9.4 % (4.0-6.0) H 03/17/25 10:07 Coding Level of Care Code Est Pt Level 4 (84609) Complex EM visit Add On G2211 Diagnoses Type 1 diabetes mellitus with hyperglycemia E10.65 Diabetes mellitus complication status: with hyperglycemia Hypertension I10 Impacted cerumen of both ears H61.23 Hearing impairment H91.90 CPT Codes Office Procedure - CPT: 12725-Pao Irrigation/Lavage ([id number]) Assessment & Plan Assessment & Plan (1) Diabetes mellitus type 1: Comment: DKA April 2018, Dr. Salcedo Code(s): E10.9 - Type 1 diabetes mellitus without complications Category: Medical Qualifiers: Diabetes mellitus complication status: with hyperglycemia Qualified Code(s): E10.65 - Type 1 diabetes mellitus with hyperglycemia Plan: seeing ENDO concern high AIC still. Decrease the amount of carbohydrate intake, pasta, bread, rice and potatoes are all sugar and that is aside from all the sweet stuff, remember that fruits are good but they are Sweet also. (2) Hypertension: Code(s): I10 - Essential (primary) hypertension Category: Medical Plan: monitor BP and record . Discussed concerns about elevated blood pressure. Continue with blood pressure medication. Decrease salt intake and exercise (3) Impacted cerumen of both ears: Code(s): H61.23 - Impacted cerumen, bilateral Category: Medical Plan: TM intact irrigation done scoop used (4) Hearing impairment: Code(s): H91.90 - Unspecified hearing loss, unspecified ear Category: Medical Plan: Referral for hearing test and Plan History of Present Illness The patient is a 44-year-old male presenting with earwax impaction. The earwax accumulation was significant, requiring intervention to remove it. The patient also has a history of hypertension, with recent blood pressure readings noted to be elevated at 156/80 mmHg. Blood pressure management includes monitoring and medication adjustments as needed. The patient has diabetes mellitus, with a recent hemoglobin A1c level of 9.4%, indicating suboptimal glycemic control. Dietary habits include consumption of cereal, which may contribute to elevated blood glucose levels. A rash was noted, possibly related to inadequate drying after bathing. Health Maintenance - Referral for hearing test scheduled - Discussion on flu vaccine timing, recommended for late March to early April - COVID-19 booster vaccination discussed and deemed appropriate Social History - Dietary habits include cereal consumption, which may affect blood glucose levels. Review of Systems - Endocrine: Reports elevated blood glucose levels, recent hemoglobin A1c of 9.4%. - Dermatological: Reports rash, possibly due to inadequate drying after bathing. Physical Exam - Ears: Significant earwax accumulation noted, requiring removal. Results - Labs: Hemoglobin A1c 9.4%, indicating poor glycemic control. Plan Patient was informed and verbally consented to the use of an ambient scribe for clinic note documentation during this visit. 1. Earwax Impaction The plan for earwax impaction includes ear irrigation to remove the accumulated wax and prevent further complications. 2. Hypertension For hypertension, the plan involves regular monitoring of blood pressure and potential adjustments to antihypertensive medications based on future readings. 3. Diabetes Mellitus The management of diabetes mellitus includes dietary modifications to reduce carbohydrate intake, particularly cereal, and monitoring blood glucose levels to achieve better glycemic control. 4. Rash The rash management plan involves ensuring proper drying of the skin after bathing to prevent recurrence. Discussion Notes During the visit, we discussed the importance of managing blood pressure and blood glucose levels effectively to prevent complications. The patient was advised on dietary changes to improve glycemic control and the need for regular monitoring of blood pressure. We also talked about the timing for the flu vaccine and the appropriateness of receiving the COVID-19 booster. A referral for a hearing test was made to assess any potential hearing issues. Patient Instructions - Follow up with ear irrigation as instructed to remove earwax. - Monitor blood pressure regularly and report any significant changes. - Adjust diet to reduce carbohydrate intake, especially cereal, to manage blood glucose levels. - Ensure proper drying of skin after bathing to prevent rash. - Schedule and attend the hearing test as referred. Orders: Orders AMB Hemoglobin A1c Today Z13.9 - Encounter for screening, unspecified Referrals Speech and Hearing Referral H91.90 - Unspecified hearing loss, unspecified ear
--- OUTSIDE RECORDS SUMMARY | 2025-03-17 10:40 | XMS_ITS | Clinical Summary ---
Author Organization [facility] Facility Address [address] [address] Care Team Providers Care Marketing Traffic Manager Name Role Phone Boris Mcgowan MD Primary Care Provider [phone] Allergies No known active allergies Medications aspirin [...] Medicaid [place] Care Teams Marketing Traffic Manager Relationship Specialty Start Date End Date Boris Mcgowan MD [id number] [place] PCP - General 08/02/20
== END 2025-03-17 10:46 | disposition home or self-care (01) ==
LOC: HO.HMCH 09:55
PROVIDERS: PCP Internal Medicine; Visit Provider Internal Medicine
DX: E10.65 Type 1 diabetes mellitus with hyperglycemia (principal); I10 Essential (primary) hypertension; H91.93 Unspecified hearing loss, bilateral; H61.23 Impacted cerumen, bilateral

== ENCOUNTER → 2025-03-17 09:54 | Outpatient (BNVA) | payer MEDICARE, MEDICAID, SELFPAY | PROVIDERS: PCP Internal Medicine; Visit Provider Internal Medicine | DX: E10.65 Type 1 diabetes mellitus with hyperglycemia (principal); I10 Essential (primary) hypertension; H61.23 Impacted cerumen, bilateral | CPT/HCPCS: 69210; 83036; 99212 ==

== ENCOUNTER 2025-04-20 13:46 | Outpatient (AMB) | payer MEDICARE, MEDICAID, SELFPAY ==
[2025-04-20 13:55] VITALS: BP 169/79; PULSE 65; BMI 27.8
--- NOTE | 2025-04-20 13:55 | MHC.OFFVIS ---
Vital Signs 04/20/25 13:55 Height 4 ft 9 in Weight 128 lb 4.944 oz BMI 27.8 BP 169/79 H Blood Pressure Location Lt brachial Position Sitting Pulse 65 Intake Visit Reasons: mri f/u 2m Intake Note: Bernard presents to in office follow up of MRI. CC: Patient reports pain form rt hip and a little bit from abdomen. He had MRI done at [facility]. Budget Manager Required: No Accompanied by: Creasing Machine Operator Allergies Sulfa (Sulfonamide Antibiotics) (SULFA(SULFONAMIDE ANTIBIOTICS)) Allergy (Intermediate, Verified 04/20/25 13:56) ITCHING doxycycline Adverse Reaction (Intermediate, Verified 04/20/25 13:56) Pancreatitis HPI HPI mri f/u 2m: Details: LAST VISIT Abdominal pain Acute pancreatitis GERD (gastroesophageal reflux disease) Dysphagia Constipation Constipation Left inguinal hernia Plan Patient will continue taking Creon with meals. Continue PPI and H2 dean therapy. Avoid dietary triggers in late night snacking. Low-fat, low-salt, high-protein diet recommended. Patient will be sent for MRI to evaluate pancreas. Continue bowel regimen with MiraLax in the morning and Dulcolax at bedtime. Increase fluid intake and activity to promote better bowel motility. Low FODMAP diet recommended to prevent bloating. Follow-up in 2 months, sooner on as needed basis patient. Both patient and the social media senior associate are agreeable to plan of care and verbalized understanding of instructions. They were given the opportunity to ask questions and all questions answered. ? Thank you for allowing me to participate in his care Orders MR abdomen wo/w con Today K85.90, R10.84 Refilled ptoisk-ljhtldis-fmryzug 24,000-76,000 -120,000 unit (Creon) administer with meals and/or snacks 1 cap PO QID 360 caps 2RF K86.81 TODAY'S VISIT Patient is here today for follow-up and to discuss MRI results. MRI results discussed with patient and staff. Possible fluid around pancreatic head, however patient was moving and difficult to assess. Patient denies abdominal pain reports right hip and right lumbar pain radiating to his back. Patient reports that he is urinating without any issues. Denies constipation. Currently he is taking Dulcolax and MiraLax daily. Occasional loose stool. Patient denies dyspepsia, dysphagia or odynophagia. Currently is taking omeprazole in the morning and famotidine at bedtime. Denies any nausea or vomiting. Patient is member reports that he is trying to follow diet that he was given at the hospital at discharge postop diagnosis with pancreatitis. He is eating low-fat, avoiding sugars. Patient denies any other GI concerning symptoms. Patient does report abdominal bloating with almost anything he eats. He is taking Creon PFSH Medical History Renal insufficiency Renal insufficiency Cellulitis Constipation Ascites Pericardial effusion Urethral meatal stenosis Mental and behavioral problem Hypercholesterolemia Down syndrome GERD (gastroesophageal reflux disease) BPH (benign prostatic hyperplasia) Hypothyroid Anxiety and depression Pseudoseizures Diabetes mellitus type 1 Surgical History Hx of cataract surgery Family History Father Medical history unknown Mother Medical history unknown Maternal Grandfather Prostate cancer Social History Household Members: Other Household Members Other:: intermediate Housing: Other Housing Other:: intermediate Do you presently have visiting nurse or other home services: No Alcohol intake: never Comment: 1:1 Sitter Patient Tobacco Use Status: Never used Tobacco e-Cigarette/Vaping Use: Never Used Second Hand Smoke Exposure: No service: No Current occupational status: disabled Cognitive needs: No Hearing needs: No Vision needs: No Review of Systems Const Denies weight gain and Denies weight loss ENT Reports no additional complaints, Denies dysphagia and Denies odynophagia Card Reports no additional complaints Resp Reports no additional complaints GI Reports abdominal pain (Right lumbar), Denies belching, Denies melena, Denies bloating, Denies change in bowel habits, Reports constipation, Denies dysphagia, Denies excessive flatus, Denies dyspepsia, Denies heartburn, Denies diarrhea, Reports loose stools, Denies nausea, Denies odynophagia and Denies vomiting Reports no additional complaints Musc Reports no additional complaints Neuro Reports no additional complaints Psych Reports no additional complaints Endo Reports no additional complaints Physical Exam Vital Signs: Last Vital Signs Pulse 65 04/20/25 13:55 BP 169/79 H 04/20/25 13:55 BMI result Body Mass Index 27.8 Const General: healthy appearing, no acute distress and well developed Nutritional Appearance: well nourished Orientation/consciousness: oriented to person Resp Effort & Inspection: normal respiratory effort, able to speak in complete sentences, no tracheal deviation and symmetric chest movement Auscultation: clear to auscultation bilaterally Cardio Rate: regular rate Heart sounds: S1 normal heart sound present and S2 normal heart sound present GI Inspection: Yes normal to inspection and No distended Palpation (GI): Soft to palpation, not firm, nontender and No hepatosplenomegaly present Auscultation: normal bowel sounds General: Yes no CVA tenderness Back/Spine/Pelvis Back: no CVA tenderness Skin General skin exam: elasticity normal, turgor normal and dry skin Neuro General: oriented to person Assessment & Plan Assessment & Plan (1) Abdominal pain: Code(s): R10.9 - Unspecified abdominal pain Category: Medical Qualifiers: Abdominal location: generalized Qualified Code(s): R10.84 - Generalized abdominal pain (2) Acute pancreatitis: Code(s): K85.90 - Acute pancreatitis without necrosis or infection, unspecified Category: Medical Qualifiers: Pancreatitis type: idiopathic Acute pancreatitis complication: no infection or necrosis Qualified Code(s): K85.00 - Idiopathic acute pancreatitis without necrosis or infection (3) GERD (gastroesophageal reflux disease): Code(s): K21.9 - Gastro-esophageal reflux disease without esophagitis Category: Medical Qualifiers: Esophagitis presence: without esophagitis Qualified Code(s): K21.9 - Gastro-esophageal reflux disease without esophagitis (4) Dysphagia: Code(s): R13.10 - Dysphagia, unspecified Category: Medical Qualifiers: Dysphagia type: other dysphagia Qualified Code(s): R13.19 - Other dysphagia (5) Constipation: Code(s): K59.00 - Constipation, unspecified Category: Medical Qualifiers: Constipation type: chronic idiopathic constipation Qualified Code(s): K59.04 - Chronic idiopathic constipation (6) Left inguinal hernia: Code(s): K40.90 - Unilateral inguinal hernia, without obstruction or gangrene, not specified as recurrent Category: Medical (7) Constipation: Code(s): K59.00 - Constipation, unspecified Category: Medical Qualifiers: Constipation type: slow transit constipation Qualified Code(s): K59.01 - Slow transit constipation Plan Patient will continue taking omeprazole and famotidine. Avoid dietary triggers and late night snacking. Checking blood sugars frequently. Avoiding food high in fat, carbs. Well-balanced diet discussed. Will increase Creon. Patient will take 2 capsules with meals. We will repeat MRI in 1 year. Will send a script for simethicone. Continue low FODMAP diet as much possible. Follow-up in 3 months, sooner on as needed basis. Patient and staff member are agreeable to this plan and verbalize understanding of instructions. They were given the opportunity to ask questions and all questions answered. 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19 Dysphagia type: other dysphagia Chronic idiopathic constipation K59.04 Constipation type: chronic idiopathic constipation Left inguinal hernia K40.90 Time Spent (min) 35 Comment 25 minutes spent with patient and additional 10 minutes spent reviewing his records
--- OUTSIDE RECORDS SUMMARY | 2025-04-20 15:24 | XMS_ITS | Clinical Summary ---
Author Organization [facility] Address [address] [place] [phone] Phone Care Team Providers Care Refrigerator Tester Name Role Phone Boris Mcgowan MD Primary Care Provider [phone] Allergies Active Allergy Reactions Criticality Noted Date Comments Doxycycline Angina High 12/03/2024 Sulfa (Sulfonamide Antibiotics) 10/19/2022 Other reaction(s): Unknown Medications citalopram (CELEXA) 20 MG tablet 1 tablet Orally Once a day for 30 day(s) Active ciclopirox (CICLODAN) 0.77 % cream 1 APPLICATION EXTERNALLY TWICE A DAY TO THE AFFECTED AREA FOR 30 DAYS for 30 Active tamsulosin (FLOMAX) 0.4 mg Cap 0.8 mg nightly at bedtime. Active STOOL SOFTENER-LAXATI VE 8.6-50 mg 3 [...] Active azithromycin (ZITHROMAX) 250 MG tablet 3 (three) times a week. 3 Active aspirin 81 MG EC tablet [...] Take 24,000 units of lipase by mouth 4 (four) times a day. 4 Active ferrous sulfate 325 mg (65 mg [place] iron) EC tablet Take 325 mg by mouth daily with breakfast. 4 Active docusate sodium (COLACE) 50 MG capsule Take 50 mg by mouth 2 (two) times a day. Active nystatin (NYSTOP) powder Apply 1 Application topically daily. Active COMFORT EZ PEN NEEDLES 32 gauge x 5/32 NdleIndications :Type 1 diabetes mellitus with nephropathy [...] 20 mg by mouth nightly at bedtime. Active diclofenac sodium (VOLTAREN) 1 % Gel [...] nephropathy Use as instructed to test glucose. BuyerMLSace Talking monitor, for Day program use 1 [...] per protocol). 75 g 11 5 Active transparent dressings (TEGADERM) 3 1/2 X 4 [...] anything orally). 2 each 3 5 Active acetaminophen (TYLENOL) 650 MG CR tablet Take 650 mg by mouth every 6 (six) hours as needed for pain (specific location in comments). Active PEG 400-propylene glycol (SYSTANE) 0.4-0.3 % Drop Place 1 drop into each eye every hour as needed. Active insulin glargine (LANTUS SOLOSTAR U-100 INSULIN) 100 unit/mL (3 mL) InPn injection penIndications: Type 1 diabetes mellitus with nephropathy 14 units, or as directed, plus 2 units to prime needle with each dose 15 mL 5 Active Additional Information Patient taking differently: 13 Units, 14 units, or as directed, plus 2 units to prime needle with each dose, Reported on 03/10/2025 Active Problems Problem Noted Date Diagnosed Date [...] mellitus with nephropathy 2020 Assessment & Plan (03/10/2025 10:25 AM EDT): Control is reasonable but not optimal based upon the patient's SMBG readings. He had a couple lows a few weeks ago where he needed glucagon to help bring his levels up as he was fighting the staff to take anything orally. Ellen is not sure what [...] podiatry. Labs ordered Assessment & Plan (09/12/2024 4:12 PM EST): [...] glucose levels. Up to date with [facility]. [facility]. Labs ordered Assessment & Plan (02/15/2024 [...] to gel, rx sent. RNs from [facility] ([facility]) would like some additional education @ [employer]. Gave them [employer] reps contact information, could also refer to CDE if needed. Continue to work on eating healthy & keeping active. To call or send in BG with problems with glycemic control. Up to date with ophtho. Follows with podiatry. Will call for recent [...] his glucose levels. [facility] Sees [facility]iatry. Labs ordered Assessment & Plan [...] 12:28 PM EST): Up to date with [facility]. Assessment & Plan (04/24/2023 2:53 PM EDT): Up to date w/ [facility], Dr. An. Resolved Problems Problem Noted Date Diagnosed Date Resolved Date [facility] (current) use of insulin 10/19/2022 04/24/2023 Encounters Date Type Department Care Team Description 04/11/2025 Telephone [facility] [address] [place] [address] Yarelis Theodore, BUSINESS PLANNER Hyperglycemia 03/30/2025 Telephone [facility] Endocrinology [address] [place] [address] María Jessica PA-C Tracheostomy Tube Check (Re: blood sugars) 03/10/2025 10:20 AM EDT - 03/10/2025 11:59 PM EDT Hospital Encounter [facility] Laboratory [address] [place] [address] María Jessica PA-C Discharge Disposition: Home or Self Care 03/10/2025 9:40 AM EDT Office Visit [facility] [address] [place] [address] María Jessica PA-C 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) 03/10/2025 Transcribe Orders [facility] [address] [place] [address] María Jessica PA-C 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) 02/08/2025 Telephone [facility] [address] [place] [address] María Jessica PA-C high fasting glucose levels 01/27/2025 Telephone [facility] Endocrinology [address] [place] [address] Yulisa Zelaya, JYOTSNA medical problem from Last 3 Months Social History Tobacco [...] Pulse 68 03/10/2025 9:31 AM EDT Temperature 36.6 C (97.8 F) 11/16/2023 10:44 AM EDT Respiratory Rate - - Oxygen Saturation 99% 03/10/2025 9:31 AM EDT Inhaled Oxygen Concentration - - Weight 58.1 kg (128 lb) 03/10/2025 9:31 AM EDT Height 139 cm (4' 6.72 ) 03/10/2025 9:31 AM EDT Body Mass Index 30.05 03/10/2025 9:31 AM EDT Plan of Treatment Upcoming Encounters Date Type Department Care Team (Late st Contact Info) Description 06/04/2025 11:40 AM EST Office Visit [facility] [address] [place] [address] Jade Cano MD [address] [place] [address] 09/02/2025 10:00 AM EST Office Visit [facility] [address] [place] [address] Jade Cano MD [address] [place] [address] 12/08/2025 9:20 AM EDT Office Visit [facility] [address] [place] [address] María Jessica PA-C [address] [place] [address] [email or web address] Health Maintenance Due Date Last Done Comments Adult Td,Tdap Booster 1980 DEPRESSION SCREENING 1992 HEPATITIS C SCREENING 1998 HIV ONE-TIME SCREENING (18-65 YEARS) 1998 PNEUMOCOCCAL VACCINES (0-49 years) (1 of 2 - PCV) 11/25/1999 DIABETIC EYE EXAM 10/19/2022 INFLUENZA VACCINE (#1) 2025 HEMOGLOBIN A1C 03/05/2025 12/03/2024, 02/07/2024, 05/30/2024, Additional history exists COVID-19 VACCINE ( season) 2025 BLOOD PRESSURE 09/10/2025 03/10/2025 TSH LEVEL 09/12/2025 09/12/2024, 110 02/2024, 02/15/2024, Additional history exists SMOKING STATUS [...] Recently Relevant to Health Maintenance Results * (ABNORMAL) Hemoglobin A1c (12/03/2024 10:35 AM EDT) HEMOGLOBIN A1C 8.4(H) 4.3 - 5.8 % [facility] Blood 12/03/2024 10:3 5 AM EDT 12/03/2024 10:40 AM EDT us María Jessica PA-C LAB BLOOD ORDERABL ES Final Result Performing Organization Address [facility] Co de Phone Number [address] [phone] * TSH with reflex (09/12/2024 10:45 AM EST) TSH 4.00 0.27 - 4.20 uIU/mL [facility] Blood 09/12/2024 10:4 5 AM EST 09/12/2024 10:52 AM EST Jade Cano MD LAB BLOOD ORDERABLES F inal Result Performing Organization Address [facility] Co de Phone Number [address] [address] from Last 3 Months or Most Recently Relevant to Health Maintenance Insurance [employer] [employer] MEDICARE PART A & B [place] B [employer] MEDICARE PART A & B Care Teams Refrigerator Tester Relationship Specialty Start Date End Date Boris Mcgowan MD [address] [place] [phone] PCP - General Internal Medicine 09/20/22 Additional Source Comments The information contained in this document represents components of the legal health record. It is not the complete legal health record.[facility]
--- OUTSIDE RECORDS SUMMARY | 2025-04-20 15:25 | XMS_ITS | Clinical Summary ---
Author Organization [facility] Facility Address [address] [address] Care Team Providers Care Refueling Ramp Supervisor Name Role Phone Boris Mcgowan MD Primary Care Provider [phone] Allergies No known active allergies Medications aspirin [...] Medicaid [place] Care Teams Refueling Ramp Supervisor Relationship Specialty Start Date End Date Boris Mcgowan MD [address] [place] MD PCP - General 08/02/20
--- OUTSIDE RECORDS SUMMARY | 2025-04-20 15:25 | XMS_ITS | Encounter Summary ---
Author Organization [facility] Address [address] [facility] [address] [place] [address] Phone Care Team Providers Care Shampoo Assistant Name Role Phone Boris Mcgowan MD Primary Care Provider [phone] Reason for Visit * Reason Onset Date Comments Hyperglycemia 04/11/2025 Encounter Details Date Type Department Care Team (Late st Contact Info) Description 04/11/2025 Telephone [facility] [address] [place] [address] Yarelis Theodore, FADUMO [address] [facility], 1st [place] [address] [email or web address] Hyperglycemia Social History Tobacco Use Types Packs/Day Years [...] on file documented as of this encounter Progress Notes * Yulisa Zelaya RN - 04/14/2025 10:21 AM EDT Call placed to Nicole, , no answer, left message to return call to nurse. * Luana Wild MA - 04/13/2025 9:43 AM EDT Called Nicole, she is going to check on Bernard in the afternoon and see how his sugars have been doing and then give us a call back to let us know and will let us know if she wants a new sliding scale adjustment. * María Jessica PA-C - 04/13/2025 8:10 AM EDT Please check in with housekeeper cleaning cooking Ellen. Please see if the home has gotten new staff regarding the dietary choices available, usually Bernard is not eating the high sugary carb foods. If not, pleaselet us know and we can look at adjusting the sliding scale if needed thanks * Yarelis Theodore CNP - 04/11/2025 12:21 PM EDT Called Carol Ann back - called last week - have been running high 300->500, meter saying HIGH today by the time Carol Ann arrived, was 555 about 20 minutes before she arrived to administer Noontime sliding scale called for >400 7 units; scale is 2-7 units <80 2 units, 80-200 3 units, 201-300 4 units, 301-400 5 units, >400 7 units Gave 7 units, has to report BG > 400 so calling in to report, but feels blood sugars have been running high, Carol Ann has been [facility] twice in the past week and blood sugars both times were elevated No weakness, fatigue, nausea, vomiting, lethargy, confusion Seemed to be at his baseline, Carol Ann feels that his nutrition is a big factor for hyperglycemia This morning he had cocoa manuel, Carol Ann educated on nutrition, but doesn't know if a change to thesliding scale is needed 14 units at night lantus Sliding scale for meals, lunch scale above, breakfast and dinner are different Plan -Push fluids and activity as tolerated to help, should be cautious with/avoid high carb foods whileelevated -[facility] returning at 4pm for dinner time check, recommended to call back if Bernard becomes symptomatic of hyperglycemia or BG remains > 400 Will send message to Violeta Jessica who saw patient last as FY in case further adjustments need to be made to sliding scale, but advised with only one blood sugar it is not safe to make permanent adjustments to the scale at this time documented in this encounter Plan of Treatment Upcoming Encounters Date Type Department Care Team (Late st Contact Info) Description 06/04/2025 11:40 AM EST Office Visit [facility] [address] [place] [address] [place] [address] Jade Cano MD [address] [place] [address] 09/02/2025 10:00 AM EST Office Visit [facility] [address] [place] [address] [place] [address] Jade Cano MD [address] [place] [address] 12/08/2025 9:20 AM EDT Office Visit [facility] [address] [place] [address] María Jessica PA-C [address] [place] [address] [email or web address] documented as of this encounter Visit Diagnoses Not on filedocumented in this encounter Care Teams Shampoo Assistant Relationship Specialty Start Date End Date Boris Mcgowan MD [address] [place] [address] [place] [phone] PCP - General Internal Medicine 09/20/22 documented as of this encounter Additional Source Comments The information contained in this document represents components of the legal health record. It is not the complete legal health record.[facility]
--- OUTSIDE RECORDS SUMMARY | 2025-04-20 15:25 | XMS_ITS | Encounter Summary ---
Author Organization [facility] Address [address] [facility] [address] [place] [address] Phone Care Team Providers Care Hotel Service Manager Name Role Phone Boris Mcgowan MD Primary Care Provider [phone] Reason for Visit * Reason Onset Date Comments Tracheostomy Tube Check 03/30/2025 Re: bloo d sugars Encounter Details Date Type Department Care Team (Late st Contact Info) Description 03/30/2025 Telephone [facility] [address] [place] [address] María Jessica PA-C [address] [place] [address] [email or web address] Tracheostomy Tube Check (Re: blood sugars) Social History Tobacco Use Types Packs/Day Years [...] as of this encounter Progress Notes * María Jessica PA-C - 03/31/2025 4:53 PM EDT Noted, thank you * Yulisa Zelaya RN - 03/31/2025 2:35 PM EDT I let Nicole know your message. She says thank you. Will do. She will also let Leda amaro know also that there will be no changes at this time. She did FYI us that sugar was 175 this am prior to meal. * María Jessica PA-C - 03/31/2025 1:27 PM EDT Those are perfect, please thank Ellen for the great job, can keep doing everything as she does. We don't need to make any adjustments to Bernard's regimen. Thank you * Yulisa Zelaya RN - 03/31/2025 1:16 PM EDT I called Nicole Stout, semiconductor processing group leader and she informed me when pt arrived back yesterday, around 338 pm, sugar had come down to 330, this was before received 7 units humalog. Pt drank a lot of water and increased his activity, and by bedtime, was 160. Nicole apologizes that she doesn't have reading for this morning, but she will check and call me back. * María Jessica PA-C - 03/30/2025 4:23 PM EDT Please check in with the semiconductor processing group leader make sure Beranrd is doing okay and his glucose levels arebetter with dinner thanks * Arcelia Roberts - 03/30/2025 1:48 PM EDT Pili the nurse from [facility] patients day program called and was told to call us if 2 sugar readingswere high. PM was 554 and morning one just said high.They close at 3 pm, so if orders needs to be changed please call their home number. documented in this encounter Plan of Treatment Upcoming Encounters Date Type Department Care Team (Late st Contact Info) Description 06/04/2025 11:40 AM EST Office Visit [facility] [address] [place] [address] Jade Cano MD [address] [place] [phone] 09/02/2025 10:00 AM EST Office Visit [facility] [address] [place] [address] Jade Cano MD [address] [place] [phone] 12/08/2025 9:20 AM EDT Office Visit [facility] [address] [place] [address] María Jessica PA-C [address] [place] [address] [email or web address] documented as of this encounter Visit Diagnoses Not on filedocumented in this encounter Care Teams Hotel Service Manager Relationship Specialty Start Date End Date Boris Mcgowan MD [address] [place] [address] [address] [place] [phone] PCP - General Internal Medicine 09/20/22 documented as of this encounter Additional Source Comments The information contained in this document represents components of the legal health record. It is not the complete legal health record.[facility]
== END 2025-04-20 14:16 | disposition home or self-care (01) ==
LOC: HO.HGI 13:47
PROVIDERS: PCP Internal Medicine; Visit Provider Nurse Practitioner Family
DX: R10.84 Generalized abdominal pain (principal); K85.00 Idiopathic acute pancreatitis without necrosis or infection; K21.9 Gastro-esophageal reflux disease without esophagitis; R13.19 Other dysphagia; K59.04 Chronic idiopathic constipation; K40.90 Unilateral inguinal hernia, without obstruction or gangrene, not specified as recurrent; K59.01 Slow transit constipation
CPT/HCPCS: 99214; G2211

== ENCOUNTER → 2025-04-20 13:46 | Outpatient (BNVA) | payer MEDICARE, MEDICAID, SELFPAY | PROVIDERS: PCP Internal Medicine; Visit Provider Nurse Practitioner Family | DX: R10.84 Generalized abdominal pain (principal); K85.00 Idiopathic acute pancreatitis without necrosis or infection; K21.9 Gastro-esophageal reflux disease without esophagitis; R13.19 Other dysphagia; K59.04 Chronic idiopathic constipation; K59.01 Slow transit constipation; K40.90 Unilateral inguinal hernia, without obstruction or gangrene, not specified as recurrent | CPT/HCPCS: 99212 ==

== ENCOUNTER 2025-04-22 12:32 | Outpatient (AMB) | payer MEDICARE, MEDICAID, SELFPAY ==
--- NOTE | 2025-04-22 12:47 | MHC.OFFVIS ---
Intake Visit Reasons: 3m/PVR Intake Note: patient presents today for: 3mo/PVR urology medications: tamsulosin blood thinners: none today's PVR: 101mls Battery Starter Required: No Accompanied by: Health Care Proxy Allergies Sulfa (Sulfonamide Antibiotics) (SULFA(SULFONAMIDE ANTIBIOTICS)) Allergy (Intermediate, Verified 04/22/25 13:34) ITCHING doxycycline Adverse Reaction (Intermediate, Verified 04/22/25 13:34) Pancreatitis Medication List - Last Reconciled 04/22/25 by ZACK Barrera-MEREDITH acetaminophen (Tylenol) 650 mg (2 x 325 mg) PO Q6H PRN albuterol sulfate 90 mcg/actuation (Ventolin HFA) 2 puffs inhalation Q4-6H PRN amlodipine 5 mg PO DAILY ascorbic acid (vitamin C) (Vitamin C) 500 mg PO DAILY aspirin 81 mg PO DAILY atorvastatin (Lipitor) 10 mg PO DAILY azithromycin mg PO bisacodyl (Dulcolax (bisacodyl)) 10 mg (2 x 5 mg) PO BEDTIME blood sugar diagnostic (FreeStyle Lite Strips) As directed cetirizine 10 mg PO DAILY cholecalciferol (vitamin D3) (Vitamin D3) 25 mcg PO DAILY ciclopirox 0.77% 1 appl topical BID citalopram 20 mg PO DAILY diclofenac sodium 1% 4 grams topical Q6H PRN docusate sodium 200 mg (2 x 100 mg) PO BEDTIME famotidine (Pepcid) 20 mg PO BEDTIME ferrous sulfate 325 mg PO DAILY@1600 folic acid 0.8 mg PO DAILY glucose 16 grams PO Q15M PRN insulin glargine (Lantus Solostar U-100 Insulin) 13 units subcut DAILY@1700 insulin lispro (Humalog KwikPen (U-100) Insulin) 1 sliding scale dose See Protocol subcut TIDAC ipratropium-albuterol 0.5 mg-3 mg(2.5 mg base)/3 mL 3 mL inhalation BID 30 days levothyroxine 112 mcg PO DAILY@0600 pwottb-vgkjnbkn-dzqxirm 24,000-76,000 -120,000 unit (Creon) 2 caps PO QID lorazepam 0.5 mg orally 1-2 tabs prn 1 hour before the procedure PRN; metoprolol succinate ER 25 mg See Protocol PO BEDTIME nystatin 1 appl topical BID PRN omeprazole 20 mg PO DAILY@0630 ondansetron 4 mg PO Q8H PRN peg 400-propylene glycol (PF) 0.4-0.3 % (Systane (PF)) 1 drp ophthalmic (eye) QID PRN pen needle, diabetic (Comfort EZ Pen [place]) As directed pen needle, diabetic As directed pen needle, diabetic, safety (True Comfort Safety Pen Needle) As directed polyethylene glycol 3350 (Miralax) 17 grams PO DAILY simethicone 125 mg PO BID-QID PRN sodium zirconium cyclosilicate (Lokelma) 5 grams PO MOWEFR tamsulosin 0.8 mg (2 x 0.4 mg) PO DAILY@1700 90 days zinc oxide-cod liver oil 40 % (Desitin) 1 appl topical DAILY HPI Comments Details: Bernard is a very pleasant 44 year old male patient of Dr Mcgowan who was accompanied by [facility] member at today's office visit. He has a past medical history of cellulitis, constipation, ascites, pericardial effusion, urethral meatal stenosis, mental and behavioral problem, renal insufficiency, hypercholesteremia, Down syndrome, GERD, hypothyroidism, anxiety, depression, pseudoseizures, and type 1 diabetes. He presents to the office today for follow-up of his lower urinary tract symptoms and incomplete bladder emptying. He continues to report episodes of dysuria and at times urinary frequency he otherwise denies incontinence, nocturia, hematuria, foul smelling urine, changes to urinary stream, flank pain, fever, and or chills. Previously RUDI noted boggy prostate and patient was started on doxycycline however sought out emergency room care for abdominal pain he had been experiencing and was diagnosed with pancreatitis. We did discussed at length potential causes of lower urinary tract symptoms patient is experiencing as well as further treatment options of these lower urinary tract symptoms. In office urinalysis results reviewed with the patient today negative leukocytes negative nitrates trace microscopic hematuria. PVR 101 mL. He does report compliance in 0.8 mg of Flomax daily. At times throughout today's assessment the patient is vague. We discussed sending urinalysis today for microgen for further assessment evaluation. Previously patient was noted to have narrowed/stenosed meatus however did not wish to undergo dilation. We did discuss again dilation as well as in office cystoscopy. Previous workup has included a CT of the abdomen and pelvis 11/14 that noted bilateral kidneys with no renal calculi or hydronephrosis. The urinary bladder is unremarkable in the prostate is normal in size.Microgen 02/13 that noted mixta gaviniae, Erwinia phyllospaerae, Staphylococcus lugdunensis, Staphylococcus haemolyticus, Staphylococcus caprae. All questions were answered. He otherwise offers no other issues or concerns at this time. [facility] Medical History Renal insufficiency Renal insufficiency Cellulitis Constipation Ascites Pericardial effusion Urethral meatal stenosis Mental and behavioral problem Hypercholesterolemia Down syndrome GERD (gastroesophageal reflux disease) BPH (benign prostatic hyperplasia) Hypothyroid Anxiety and depression Pseudoseizures Diabetes mellitus type 1 Surgical History Hx of cataract surgery Family History Father Medical history unknown Mother Medical history unknown Maternal Grandfather Prostate cancer Social History Household Members: Other Household Members Other:: [facility] Housing: Other Housing Other:: [facility] Do you presently have visiting nurse or other home services: No Alcohol intake: never Comment: 1:1 Sitter Patient Tobacco Use Status: Never used Tobacco e-Cigarette/Vaping Use: Never Used Second Hand Smoke Exposure: No service: No Current occupational status: disabled Cognitive needs: No Hearing needs: No Vision needs: No Review of Systems Const Unobtainable due to mental condition Physical Exam Const General: cooperative, healthy appearing, comfortable, no acute distress, well developed, alert and awake Orientation/consciousness: oriented to person Limitations: no limitations HEENT Head: Yes normal to inspection Ears: hearing grossly normal bilaterally Neck Neck: Yes normal visual inspection and Yes trachea midline Chest Chest palpation & inspection: normal inspection of the chest Resp Effort & Inspection: normal respiratory effort and able to speak in complete sentences Cardio Rate: regular rate GI Inspection: Yes normal to inspection General: Yes no CVA tenderness Penis: normal penis and circumcised Meatus: other (As per HPI) Scrotum: scrotum normal Testes: Testes normal Back/Spine/Pelvis Back: no CVA tenderness Skin General skin exam: no rashes or lesions noted Neuro General: oriented to person Extrem General: Yes normal to inspection Psych Appearance: well kempt Speech and movement: Normal speech and movement present and Clear speech present Affect: normal affect Attitude: cooperative Insight: Limited insight present (Psych) Judgement: Limited judgement present (Psych) Office Procedures Post Void Residual Post Residual Void Post Void Residual (PVR): 101 97127-Hdzk Void Residual by ultrasound Results AMB Urinalysis, Automated UA Leukoctes 0 Allyssa/uL Last Edit by CHIARA Kulkarni on 04/22/25 13:03 UA Nitrite Last Edit by Desi Montgomery [facility] on 04/22/25 13:03 UA Urobilinogen 0.2 mg/dL Last Edit by Desi Montgomery CCM on 04/22/25 13:03 UA Protein 0 mg/dL Last Edit by Desi Montgomery [facility] on 04/22/25 13:03 UA pH 6.0 Last Edit by Desi Montgomery [facility] on 04/22/25 13:03 UA Blood 10 Philippe/uL Last Edit by Desi Montgomery [facility] on 04/22/25 13:03 UA Specific [place] 1.005 Last Edit by Desi Montgomery CCM on 04/22/25 13:03 UA Ketone Positive Last Edit by Desi Montgomery [facility] on 04/22/25 13:03 UA Bilirubin 0 mg/dL Last Edit by Desi Montgomery [facility] on 04/22/25 13:03 UA Glucose 0 mg/dL Last Edit by Desi Montgomery [facility] on 04/22/25 13:03 Results Reviewed Results Reviewed: Laboratory Last Values Urine pH (Auto) 6.0 04/22/25 13:03 Specific [place] (Auto) 1.005 04/22/25 13:03 Urine Protein (Auto) 0 mg/dL 04/22/25 13:03 Glucose (UA)(Auto) 0 mg/dL 04/22/25 13:03 Urine Ketones (Auto) Positive 04/22/25 13:03 Urine Blood (Auto) 10 Philippe/uL 04/22/25 13:03 Urine Bilirubin (Auto) 0 mg/dL 04/22/25 13:03 Urine Urobilinogen (Auto) 0.2 mg/dL 04/22/25 13:03 Leukocyte Esterase (Auto) 0 Allyssa/uL 04/22/25 13:03 Assessment & Plan Assessment & Plan (1) Dysuria: Code(s): R30.0 - Dysuria Category: Medical (2) BPH (benign prostatic hyperplasia): Code(s): N40.0 - Benign prostatic hyperplasia without lower urinary tract symptoms Category: Medical Qualifiers: Lower urinary tract symptom presence: symptoms present Lower urinary tract symptom detail: urinary frequency Qualified Code(s): N40.1 - Benign prostatic hyperplasia with lower urinary tract symptoms; R35.0 - Frequency of micturition (3) Urethral meatal stenosis: Comment: 2013, Dr. Greer Code(s): N35.919 - Unspecified urethral stricture, male, unspecified site Category: Medical (4) Incomplete bladder emptying: Code(s): R33.9 - Retention of urine, unspecified Category: Medical Plan In office urinalysis results reviewed with the patient today will send for microgen; will await results for potential treatment PVR 101 mL. Continue Flomax. We did discuss at length potential causes of lower urinary tract symptoms patient is experiencing as well as further treatment options and risks and benefits of these treatment options. All questions were answered. Information provided regarding cystoscopy. Will obtain PSA for further assessment evaluation Follow-up in 3 months with PVR and PSA; or sooner with any issues, concerns, and or questions. Orders: Orders AMB Post Void Residual by ultrasound Today N40.1 - Benign prostatic hyperplasia with lower urinary tract symptoms, R35.0 - Frequency of micturition Prostate Specific Antigen Today N40.1 - Benign prostatic hyperplasia with lower urinary tract symptoms, R35.0 - Frequency of micturition AMB Urinalysis Automated Today Z13.9 - Encounter for screening, unspecified Patient Instructions: The patient had an opportunity to ask questions regarding the treatment plan. All questions were answered. Physical exam, labs, and imaging were discussed and reviewed in detail. As well as risks, benefits, and discussion of treatment choices. No major barriers to understanding were identified. The patient expressed understanding and agreement with the above treatment plan. The patient was made aware they should contact our office by phone for worsening of their current condition, the appearance of new symptoms, or with any questions or concerns. Compliance is encouraged with any medications and follow up testing that is ordered. It is a privilege to be allowed the opportunity to participate in? your urological care.? Again, if you have any questions or concerns If you have any questions or concerns please do not hesitate to contact me. The office is [phone]. This note is constructed using voice recognition software. While every effort has been made to ensure accuracy vinyl cutter errors may have been included. Yours sincerely, LISETTE Barrera Coding Level of Care Code Est Pt Level 3 (65205) Complex EM visit Add On G2211 Diagnoses Dysuria R30.0 Benign prostatic hyperplasia with urinary frequency N40.1; R35.0 Lower urinary tract symptom presence: symptoms present Lower urinary tract symptom detail: urinary frequency Urethral meatal stenosis N35.919 Incomplete bladder emptying R33.9 CPT Codes Post Residual Void - PVR CPT Code: 02205-Demr Void Residual by ultrasound ([id number])
--- OUTSIDE RECORDS SUMMARY | 2025-04-22 13:53 | XMS_ITS | Encounter Summary ---
Author Organization [facility] Address [address] [facility] [address] [place] [address] Phone Care Team Providers Care Coding Technician Name Role Phone Boris Mcgowan MD Primary Care Provider [phone] Reason for Visit * Reason Onset Date Comments Tracheostomy Tube Check 03/30/2025 Re: bloo d sugars Encounter Details Date Type Department Care Team (Late st Contact Info) Description 03/30/2025 Telephone [facility] [address] [place] [phone] María Jessica PA-C [address] [place] [address] [email or web address] Tracheostomy Tube Check (Re: blood [...] 1:16 PM EDT I called Nicole Stout, electronic assembler group leader and she informed me when [...] PM EDT Please check in with the electronic assembler group leader make sure Bernard is doing okay and his glucose levels arebetter with dinner thanks * Arcelia Roberts - 03/30/2025 1:48 PM EDT Pili the nurse from [facility] patients day program called and was [...] AM EST Office Visit [facility] [address] [place] [address] Jade Cano MD [address] [place] [address] 09/02/2025 10:00 AM EST Office Visit [facility] [address] [place] [address] Jade Cano MD [address] [place] [address] 12/08/2025 9:20 AM EDT Office Visit [facility] [address] [place] [address] María Jessica PA-C [address] [place] [address] [email or web address] documented as of this encounter Visit Diagnoses Not on filedocumented in this encounter Care Teams Coding Technician Relationship Specialty Start Date End Date Boris Mcgowan MD [address] [place] [address] [address] [place] [phone] PCP - General Internal Medicine 09/20/22 documented as of this encounter Additional Source Comments The information contained in this document represents components of the legal health record. It is not the complete legal health record.[facility]
--- OUTSIDE RECORDS SUMMARY | 2025-04-22 13:53 | XMS_ITS | Clinical Summary ---
Author Organization [facility] Address [address] [place] [address] Phone Care Team Providers Care Capital Markets Specialist Name Role Phone Boris Mcgowan MD Primary Care Provider [phone] Allergies Active Allergy Reactions Criticality Noted Date [...] Active ferrous sulfate 325 mg (65 mg [place] iron) EC tablet Take 325 mg by [...] nephropathy Use as instructed to test glucose. Hard 8 Gamesace Talking monitor, for Day program use 1 [...] his glucose levels. Up to date with [facility]. Sees podiatry. Labs ordered Assessment & [...] Date Diagnosed Date Resolved Date ferry terminal agent (current) use of insulin 10/19/2022 04/24/2023 Encounters Date Type Department Care Team Description 04/11/2025 Telephone [facility] [address] [place] [address] Yarelis Theodore, YARD LOADER OPERATOR Hyperglycemia 03/30/2025 Telephone [facility] Endocrinology [address] [place] [address] María Jsesica PA-C Tracheostomy Tube Check (Re: blood sugars) 03/10/2025 10:20 AM EDT - 03/10/2025 11:59 PM EDT Hospital Encounter [facility] [address] [place] [address] María Jessica PA-C Discharge Disposition: Home or Self Care 03/10/2025 9:40 AM EDT Office Visit [facility] [address] [place] [address] María Jessica PA-C 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) 03/10/2025 Transcribe Orders [facility] [address] [place] [address] María Jessica PA-C 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) 02/08/2025 Telephone [facility] [address] [place] [address] María Jessica PA-C high fasting glucose levels 01/27/2025 Telephone [facility] Endocrinology [address] [place] [address] Yulisa Zelaya, JYOTSNA medical problem from Last [...] AM EST Office Visit [facility] [address] [place] [address] Jade Cano MD [address] [place] [address] 09/02/2025 10:00 AM EST Office Visit [facility] [address] [place] [address] Jade Cano MD [address] [place] [phone] 12/08/2025 9:20 AM EDT Office Visit [facility] [address] [place] [address] María Jessica PA-C [address] [place] [address] [email or web address] Health Maintenance Due Date Last Done Comments [...] HEMOGLOBIN A1C 8.4(H) 4.3 - 5.8 % [facility] Blood 12/03/2024 10:3 5 AM EDT 12/03/2024 10:40 AM EDT us María Jessica PA-C LAB BLOOD ORDERABL ES Final Result Performing Organization Address [facility] [[email or web address]] Co de Phone Number [address] [phone] * TSH with reflex (09/12/2024 10:45 AM EST) TSH 4.00 0.27 - 4.20 uIU/mL [facility] Blood 09/12/2024 10:4 5 AM EST 09/12/2024 10:52 AM EST Jade Cano MD LAB BLOOD ORDERABLES F inal Result Performing Organization Address [facility] [[email or web address]] Co de Phone Number [address] [phone] from Last 3 Months or Most Recently Relevant to Health Maintenance Insurance [facility] MEDICARE PART A & [place] A & B [facility] MEDICARE PART A & B Care Teams Capital Markets Specialist Relationship Specialty Start Date End Date Boris Mcgowan MD [address] [place] [phone] PCP - General Internal Medicine 09/20/22 Additional Source Comments The information contained in this document represents components of the legal health record. It is not the complete legal health record.[facility]
--- OUTSIDE RECORDS SUMMARY | 2025-04-22 13:53 | XMS_ITS | Encounter Summary ---
Author Organization [facility] Address [address] [facility] [address] [place] [address] Phone Care Team Providers Care Federal Judge Name Role Phone Boris Mcgowan MD Primary Care Provider [phone] Reason for Visit * Reason Onset Date Comments Hyperglycemia 04/11/2025 Encounter Details Date Type Department Care Team (Late st Contact Info) Description 04/11/2025 Telephone [facility] [address] [place] [address] Yarelis Theodore, FADUMO [address] [facility], 1[address] [place] [address] [email or web address] Hyperglycemia Social History Tobacco Use Types Packs/Day [...] 8:10 AM EDT Please check in with cook house supervisor Ellen. Please see if the home has [...] 11:40 AM EST Office Visit [facility] [address] [place] [address] [place] [address] Jade Cano MD [address] [place] [address] 09/02/2025 10:00 AM EST Office Visit [facility] [address] [place] [address] [place] [address] Jade Cano MD [address] [place] [address] 12/08/2025 9:20 AM EDT Office Visit [facility] [address] [place] [address] María Jessica PA-C [address] [place] [phone] [email or web address] documented as of this encounter Visit Diagnoses Not on filedocumented in this encounter Care Teams Federal Judge Relationship Specialty Start Date End Date Boris Mcgowan MD [address] [place] [address] [place] [phone] PCP - General Internal Medicine 09/20/22 documented as of this encounter Additional Source Comments The information contained in this document represents components of the legal health record. It is not the complete legal health record.[facility]
--- OUTSIDE RECORDS SUMMARY | 2025-04-22 13:53 | XMS_ITS | Clinical Summary ---
Author Organization [facility] Address [address] [address] Care Team Providers Care Trials Manager Name Role Phone Boris Mcgowan MD Primary Care Provider [phone] Allergies No known active allergies Medications aspirin [...] Medicaid [place] Care Teams Trials Manager Relationship Specialty Start Date End Date Boris Mcgowan MD [address] [place] PCP - General 08/02/20
== END 2025-04-22 13:49 | disposition home or self-care (01) ==
LOC: HO.HUSH 12:32
PROVIDERS: PCP Internal Medicine; Visit Provider Nurse Practitioner Family
DX: R30.0 Dysuria (principal); N40.1 Benign prostatic hyperplasia with lower urinary tract symptoms; R35.0 Frequency of micturition; N35.919 Unspecified urethral stricture, male, unspecified site; R33.9 Retention of urine, unspecified; Z13.9 Encounter for screening, unspecified
CPT/HCPCS: 99213; G2211

== ENCOUNTER → 2025-04-22 12:32 | Outpatient (BNVA) | payer MEDICARE, MEDICAID, SELFPAY | PROVIDERS: PCP Internal Medicine; Visit Provider Nurse Practitioner Family | DX: R30.0 Dysuria (principal); N40.1 Benign prostatic hyperplasia with lower urinary tract symptoms; N35.919 Unspecified urethral stricture, male, unspecified site; R33.9 Retention of urine, unspecified | CPT/HCPCS: 51798; 81003; 99212 ==

== ENCOUNTER 2025-06-12 14:27 | Outpatient (AMB) | payer MEDICARE, MEDICAID, SELFPAY ==
[2025-06-12 14:30] VITALS: BP 140/67; PULSE 63; O2SAT 99; BMI 28.1
--- NOTE | 2025-06-12 14:30 | MHC.OFFVIS ---
Vital Signs 06/12/25 14:30 Height 4 ft 9 in Weight 130 lb BMI 28.1 BP 140/67 H Blood Pressure Location Rt brachial Position Sitting Pulse 63 Pulse Source Pulse Oximeter Pulse Oximetry (%) 99 Oxygen Delivery Method Room Air Intake Visit Reasons: Cough Allergies Sulfa (Sulfonamide Antibiotics) (SULFA(SULFONAMIDE ANTIBIOTICS)) Allergy (Intermediate, Verified 06/12/25 14:34) ITCHING doxycycline Adverse Reaction (Intermediate, Verified 06/12/25 14:34) Pancreatitis HPI HPI Cough: Details: 44-year-old gentleman, lifetime nonsmoker, with underlying history of Down syndrome followed for chronic cough and IPF. He continues on chronic azithromycin suppressive therapy with good baseline control of his symptoms. He uses duo nebs as needed. [facility] Medical History Renal insufficiency Renal insufficiency Cellulitis Constipation Ascites Pericardial effusion Urethral meatal stenosis Mental and behavioral problem Hypercholesterolemia Down syndrome GERD (gastroesophageal reflux disease) BPH (benign prostatic hyperplasia) Hypothyroid Anxiety and depression Pseudoseizures Diabetes mellitus type 1 Surgical History Hx of cataract surgery Family History Father Medical history unknown Mother Medical history unknown Maternal Grandfather Prostate cancer Social History Household Members: Other Household Members Other:: snf Housing: Other Housing Other:: snf Do you presently have visiting nurse or other home services: No Alcohol intake: never Comment: 1:1 Sitter Patient Tobacco Use Status: Never used Tobacco e-Cigarette/Vaping Use: Never Used Second Hand Smoke Exposure: No service: No Current occupational status: disabled Cognitive needs: No Hearing needs: No Vision needs: No Review of Systems Const Denies daytime sleepiness, Denies excessive sweating, Denies fatigue, Denies fever(s), Denies lethargy, Denies malaise, Denies night sweats, Denies snoring and Denies weight loss Eyes Denies blurry vision and Denies itchy eyes ENT Denies nasal congestion, Denies post nasal drip, Denies sinus pain, Denies sinus pressure and Denies other ( Thrush) Card Denies chest pain, Denies pedal edema, Denies dyspnea, Denies orthopnea and Denies paroxysmal nocturnal dyspnea Resp Denies cough, Denies hemoptysis, Denies excessive phlegm production, Denies dyspnea, Denies snoring and Denies wheezing GI Denies abdominal pain and Denies heartburn Musc Denies myalgias, Denies arthralgias and Denies joint swelling Skin/Breast Denies rash Neuro Denies memory loss and Denies seizure-like activity Psych Denies abnormal sleep pattern, Denies anxiety and Denies memory loss Endo Denies excessive sweating, Denies fatigue and Denies heat intolerance Juan/Lymph Denies easy bruising Aller/Immun Denies itchy eyes, Denies seasonal rhinorrhea and Denies wheezing Physical Exam Vital Signs: Last Vital Signs Pulse 63 06/12/25 14:30 BP 140/67 H 06/12/25 14:30 Pulse Ox 99 06/12/25 14:30 Oxygen Delivery Method Room Air 06/12/25 14:30 BMI result Body Mass Index 28.1 Const General: no acute distress and alert Nutritional Appearance: not obese Orientation/consciousness: Other orientation findings ( oriented) HEENT Head: Yes atraumatic Eyes General: appearance normal, both eyes and all related structures Sclerae: sclerae normal EOM: EOMs intact bilaterally Neck Neck: Yes supple Lymphatic: no lymphadenopathy noted Resp Effort & Inspection: normal respiratory effort and no use of accessory muscles Auscultation: clear to auscultation bilaterally Cardio Rate: regular rate Rhythm: regular rhythm Heart sounds: no gallops, no murmurs and no rubs Skin General skin exam: other ( warm) Extrem General: No clubbing, No cyanosis and No edema Assessment & Plan Assessment & Plan (1) IPF (idiopathic pulmonary fibrosis): Code(s): J84.112 - Idiopathic pulmonary fibrosis Category: Medical Plan: No recent exacerbations. Continue to monitor clinically. Continue as needed albuterol MDI/nebs. (2) Chronic cough: Code(s): R05 - Cough Category: Medical Plan: No recent exacerbations. At this time suppressed on TIW azithromycin. Continue current regimen. Coding Level of Care Code Est Pt Level 4 (95473) Diagnoses IPF (idiopathic pulmonary fibrosis) J84.112 Chronic cough R05
--- OUTSIDE RECORDS SUMMARY | 2025-06-12 14:49 | XMS_ITS | Encounter Summary ---
Author Organization [facility] Address [address] [facility] [address] [place] [address] Phone Care Team Providers Care Natural Resource Specialist Name Role Phone Boris Mcgowan MD Primary Care Provider [phone] Pineda Tarango MD Unavailable [phone] Encounter Details Date Type Department Care Team (Late st Contact Info) Description 05/16/2025 [facility] Only [facility] [address] [place] [address] [place] [address] Yarelis Theodore CNP [address] [facility], 1st [place] [address] [email or web address] Social History Tobacco Use Types Packs/Day Years [...] as of this encounter Progress Notes * Yarelis Theodore CNP - 05/16/2025 1:34 PM EDT Late entry- Marnie from [facility] calls assistant professor nurse education service to report patient BG of 474 Call to Marnie, reports [facility] is supposed to call in when patient BG is >450. She arrived at [facility], CGM read in the low 100s, has been having issues with CGM reading accurately, did a fingerstick following proper hand hygiene technique and got BG of 474, gave insulin per the sliding scale (14units), reports patient was asymptomatic. Marnie advised patient to drink lots of water. Patient planned to dance in his room for light activity to help with BG. CGM has been giving trouble since resuming, [facility] plans to contact [employer] to troubleshoot thisweek. 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 The other night, Bernard had cookies before bed and morning BG was in the 500s. Advised Marnie that everything she did was appropriate- calling to report BG, administering insulinper sliding scale, encouraging hydration and light activity, etc. advised to have [facility] call if bloodsugars continue to be elevated at lunch. She expressed understanding. documented in this encounter Plan of Treatment Upcoming Encounters Date Type Department Care Team (Late st Contact Info) Description 09/02/2025 10:00 AM EST Office Visit [facility] [address] [place] [address] [place] [address] Jade Cano MD [address] [place] [address] 12/08/2025 9:20 AM EDT Office Visit [facility] [address] [place] [address] [place] [address] María Jessica PA-C 22 [place] [address] 03/04/2026 11:40 AM EDT Office Visit [facility] [place] [address] Jade Cano MD [address] [address] documented as of this encounter Visit Diagnoses Not on filedocumented in this encounter Care Teams Natural Resource Specialist Relationship Specialty Start Date End Date Juan M, Boris Ann MD [address] [place] [address] [place] [phone] PCP - General Internal Medicine 09/20/22 Pineda Tarango MD [address] [place] [address] Nephrology 06/05/25 documented as of this encounter Additional Source Comments The information contained in this document represents components of the legal health record. It is not the complete legal health record.[facility]
--- OUTSIDE RECORDS SUMMARY | 2025-06-12 14:49 | XMS_ITS | Data Portability ---
Author Organization [place] [facility] Address [address] [place] [phone] Care Team Providers Care Corporate Planner Name Role Phone NATANAEL CORDOVA Primary Care Provider Assessment Encounter Date Assessment Date Assessment LastModified by Organization Details LastModified Time 05/18/2020 05/18/2020 Overview/Histo ry: This is a 39-year-old male, new to [email or web address] [facility], phone calls with complaints of testicular/pen is pain. Patient resides in a skilled nursing. This past medical history includes hypertension, high [...] No suprapubic tenderness noted. Genital exam-performed with seam checker as listed in physical exam notes. No [...] pain Time On Scene with Patient: 00:15:28 [email or web address] Not available 05/18/2020 17:53:51 Plan of Treatment Reminders Order Date Submit Date Provider Last Modified By Organization Details Last Modified Time Details Appointments None recorded. Lab urinalysis, dipstick 2019 [email or web address] [facility], [address] [place] [address], [phone], 0 17:56:19 culture, [facility] - [facility] LAUREN [facility] (Centralized Electronic Ordering - All Locations), Patient Can Go To The Location Of Their Choice, [id number] 0 21:04:00 Referral None recorded. Procedures None [...] The Location Of Their Choice, 05/19/2020 21:04:00 05/18/2005/18/2020 cultu re, urine special requests NONE Not Available [facility] (Centralized Electronic Ordering - All Locations) Patient Can Go To The Location Of Their Choice, 05/19/2020 21:04:00 05/18/20 20 05/19/2020 cultu re, urine culture NO GROWTH Not Available [facility] (Centralized Electronic Ordering - All Locations) Patient Can Go To The Location Of Their Choice, [id number] 05/19/2020 21:04:00 05/18/20 20 05/19/2020 cultu re, urine report status FINAL 2019 Not Available [facility] (Centralized Electronic Ordering - All Locations) Patient Can Go To The Location Of Their Choice, [id number] 05/19/2020 21:04:00 05/18/2005/18/2020 urina lysis , dipst ick Appearance clear Not Available [facility] [address] [place], [address], 05/18/2020 17:54:49 05/18/2005/18/2020 urina lysis , dipst ick Color yellow Not Available [facility] [address] [place], [address], 05/18/2020 17:54:49 05/18/2005/18/2020 urina lysis , dipst ick Glucose positi ve Not Available [facility] [address] [place], [address], 05/18/2020 17:54:49 05/18/2005/18/2020 urina lysis , dipst ick Bilirubin negati ve Not Available [facility] [address] [place], [address], 05/18/2020 17:54:49 05/18/2005/18/2020 urina lysis , dipst ick Ketones NEG Not Available [facility] [address] [place], [address], 05/18/2020 17:54:49 05/18/2005/18/2020 urina lysis , dipst ick Sp. [place] 1.020 Not Available [facility] [address] [place], [address], 05/18/2020 17:54:49 05/18/2005/18/2020 urina lysis , dipst ick Blood NEG Not Available [facility] [address] [place], [address], 05/18/2020 17:54:49 05/18/20 20 05/18/2020 urina lysis , dipst ick pH 5.0 Not Available [facility] [address] [place], [address], 05/18/2020 17:54:49 05/18/2005/18/2020 urina lysis , dipst ick Protein positi ve Not Available [facility] [address] [place], [address], 05/18/2020 17:54:49 05/18/2005/18/2020 urina lysis , dipst ick Urobilirubin negati ve Not Available [facility] [address] [place], [address], 05/18/2020 17:54:49 05/18/20 20 05/18/2020 urina lysis , dipst ick Nitrites NEG Not Available [facility] [address] [place], [address], 05/18/2020 17:54:49 05/18/20 20 05/18/2020 urina lysis , dipst ick Leukocytes NEG Not Available [facility] [address] [place], [address], 05/18/2020 17:54:49 Result Notes None recorded. Medical Equipment None Reported. Allergies Allergen ID Allergen Name Allergen Category Reaction Reaction Severity Criticality Documentation Date Start Date Code Code System Note Provider Name and Address Organization Details Recorded Time 943322 Substance with sulfonami de structure and antibacte rial mechanism of action (substanc e) medicatio n Not available Not available Not available 05/18/2020 91205 8003 SNOMED FREDO SCOTT NP [address] [place], [address], [place] [facility] 0 17:40:39 [...] Not Available Vitals Date Recorded Oxygen saturation Respiratory rate Body temperature Heart rate Systolic And Diastolic Provider Name and Address Organization Details Last Updated DateTime 0 98 % 14 /min 98.5 [degF] 82 /min 108/76 mm[Hg] Not Available [facility] 0 17:23:33 Social History None recorded. Functional Status None recorded. Mental Status None recorded. Family History Nothing Reported Notes:unable to obtain - pat ient does not know Medical History No medical history recorded. Past Encounters Encounter ID Performer Location Encounter Start Date Encounter Closed Date Diagnosis/Indication Diagnosis SNOMED-CT Code Diagnosis ICD10 Code Diagnosis IMO Codes Diagnosis Note [id number] FREDO SCOTT NP [facility] [address] [place], [place] [phone] 05/18/2020 17:20:56 05/19/2020 14:17:14 Pain in penis 068077884 N48.89 Health Concerns Section Related Observation LastModified by Organization Detai ls LastModified Time None Recorded Concern Status LastModified by Organization Details LastModified Time None Recorded Advance Directives Directive None Recorded Payers Insurance Date Sequence Insurance Name Policy Number Policy Celeste Covered Member ID Celeste Member ID Guarantor Name 05/18/2020 1 *SELF PAY* Bernard Navarro [id number] Bernard Navarro 05/18/2020 2 [place] [facility] Bernard Navarro [id number] Bernard Navarro 05/18/2020 1 MEDIC[place] B-[place] [facility] Bernard Navarro [id number] Bernard Navarro 05/19/2020 1 [place] [employer] Bernard Navarro [id number] Bernard Navarro Notes Date Note Type Note Provider Name and Address Organization Details Recorded Time 05/18/2020 text/html This is a 39-year-old male, new to [facility], who is a staff members call with concerns for testicular pain. This patient resides in a skilled nursing setting. His past medical history includes hypertension, [...] his last bowel movement was today. FREDO SCOTT NP [address] [place], [address], [place] [facility] 05/18/2020 17:56:38
--- OUTSIDE RECORDS SUMMARY | 2025-06-12 14:49 | XMS_ITS | Encounter Summary ---
Author Organization [facility] Address [address] [facility] [address] [place] [address] Phone Care Team Providers Care Creative Developer Name Role Phone Boris Mcgowan MD Primary Care Provider [phone] Pineda Tarango MD Unavailable [phone] Reason for Visit * Reason Onset Date Comments Tracheostomy Tube Check 03/30/2025 Re: bloo d sugars Encounter Details Date Type Department Care Team (Late st Contact Info) Description 03/30/2025 Telephone [facility] [address] [place] [address] María Jessica PA-C [address] [place] [address] [email or web address] Tracheostomy Tube Check (Re: blood sugars) Social [...] you. Will do. She will also let [facility] know also that there will be no [...] 1:16 PM EDT I called Nicole Stout, program director group work and she informed me when pt arrived [...] PM EDT Please check in with the program director group work make sure Bernard is doing okay and his glucose levels arebetter with dinner thanks * Arcelia Roberts - 03/30/2025 1:48 PM EDT Pili the nurse from [facility] patients day program called and was [...] AM EST Office Visit [facility] [address] [place] [address] Jade Cano MD [address] [place] [address] 12/08/2025 9:20 AM EDT Office Visit [facility] [address] [place] [address] María Jessica PA-C [address] [place] [address] 03/04/2026 11:40 AM EDT Office Visit [facility] [address] [place] [address] Jade Cano MD [address] [place] [address] [email or web address] documented as of this encounter Visit Diagnoses Not on filedocumented in this encounter Care Teams Creative Developer Relationship Specialty Start Date End Date Boris Mcgowan MD [address] [place] [address] [address] [place] [phone] PCP - General Internal Medicine 09/20/22 Pineda Tarango MD [address] [place] [address] [place] [address] Nephrology 06/05/25 documented as of this encounter Additional Source Comments The information contained in this document represents components of the legal health record. It is not the complete legal health record.[facility]"
--- OUTSIDE RECORDS SUMMARY | 2025-06-12 14:49 | XMS_ITS | Clinical Summary ---
Author Organization [facility] Address [address] [place] [phone] Phone Care Team Providers Care Mobile Application Developer Name Role Phone Boris Mcgowan MD Primary Care Provider [phone] Pineda Tarango MD Unavailable [phone] Allergies Active Allergy Reactions Criticality Noted Date [...] bedtime. Active STOOL SOFTENER-LAXATI VE 8.6-50 mg 10/05/19 23 Active metoprolol succinate (TOPROL-XL) 25 MG 24 hr tablet 09/18/19 23 Active ipratropium-alb uteroL (DUONEB) 0.5-3 mg (2.5 mg base)/3 mL nebulizer solution INHALE 1 VIAL BY MOUTH TWICE A DAY 09/05/19 23 Active GLUCAGON 1 mg injection 10/17/19 23 Active folic acid (FOLVITE) 800 MCG tablet 1 tablet Orally Once a day for 30 day(s) Active LORazepam (ATIVAN) 0.5 MG tablet 08/25/19 23 Active azithromycin (ZITHROMAX) 250 MG tablet 3 (three) times a week. 09/21/19 23 Active aspirin 81 MG EC tablet 1 tablet Orally Once a day for 30 day(s) Active ascorbic Acid (VITAMIN C) 500 mg CpER Take 1 capsule by mouth. Active cetirizine (ZYRTEC) 10 MG tablet 1 tablet Orally Once a day for 30 day(s) Active zinc oxide/cod liver oil (DESITIN TP) Desitin Active wheat dextrin/calcium /aspartam (BENEFIBER + CALCIUM SUGAR-FREE ORAL) Benefiber Active blood-glucose meter,continuou s Misc by Miscellaneous route as needed. Active blood-glucose transmitter (DEXCOM G6 TRANSMITTER MISC) 1 each by Miscellaneous route every 3 (three) months. Active blood-glucose sensor (DEXCOM G6 SENSOR MISC) 1 each by Miscellaneous route. Active omeprazole (PRILOSEC) 20 MG capsule Take 20 mg by mouth daily. 11/13/19 24 Active CREON 24,000-76,000 -120,000 unit CpDR Take 24,000 units of lipase by mouth 4 (four) times a day. 10/29/19 24 Active ferrous sulfate 325 mg (65 mg zuni iron) EC tablet Take 325 mg by mouth daily with breakfast. 09/03/19 24 Active docusate sodium (COLACE) 50 MG capsule Take 50 mg by mouth 2 (two) times a day. Active nystatin (NYSTOP) powder Apply 1 Application topically daily. Active FREESTYLE LITE Strp stripsIndicatio ns:Type 1 diabetes mellitus with nephropathy Use as directed to monitor glucose, test up to 4 times/day 150 strip 11 02/15/20 24 Active amLODIPine (NORVASC) 5 MG tablet Take 5 mg by mouth daily. 02/12/20 24 Active LOKELMA 5 gram Take 5 g by mouth 3 (three) times a week. Active famotidine (PEPCID AC) 20 MG tablet Take 20 mg by mouth nightly at bedtime. Active diclofenac sodium (VOLTAREN) 1 % Gel Apply topically 4 (four) times a day. Active simvastatin (ZOCOR) 20 MG tablet Take 20 mg by mouth nightly at bedtime. 04/23/20 24 Active glucose 4 GM chewable tabletIndicatio ns:Type 1 diabetes mellitus with nephropathy Take 4 tablets (16 g total) by mouth as needed (for hypoglycemia). 100 tablet 5 05/30/20 24 Active cholecalciferol , vitamin D3, 25 mcg (1,000 unit) capsuleIndicati ons:Vitamin D deficiency Take 2,000 Units by mouth daily. 180 capsule 1 05/30/20 24 Active blood-glucose meter kitIndications: Type 1 diabetes mellitus with nephropathy Use as instructed to test glucose. Embrace Talking monitor, for Day program use 1 kit 07/17/20 24 Active levothyroxine (SYNTHROID, LEVOTHROID) 112 MCG tablet Take 112 mcg by mouth every morning. Active ergocalciferol (DRISDOL) 50,000 unit capsule Take 50,000 Units by mouth once a week. Active dextrose (GLUTOSE) 40 % gelIndications: Type 1 diabetes mellitus with nephropathy Take 15 g by mouth once as needed (hypoglycemia, may repeat as per protocol). 75 g 11 11/01/19 25 Active glucagon (BAQSIMI) 3 mg/actuation SpryIndications :Type 1 diabetes mellitus with peripheral neuropathy 1 spray by Nasal route once as needed (hypoglycemia when cannot safely take anything orally). 2 each 3 01/02/20 25 Active acetaminophen (TYLENOL) 650 MG CR tablet Take 650 mg by mouth every 6 (six) hours as needed for pain (specific location in comments). Active PEG 400-propylene glycol (SYSTANE) 0.4-0.3 % Drop Place 1 drop into each eye every hour as needed. Active blood sugar diagnostic Strp stripsIndicatio ns:Type 1 diabetes mellitus with nephropathy Inject 1 each under the skin 6 (six) times a day. Use as directed to monitor glucose once daily, to go with Embrace meter, to be used @ Day Program 600 strip 3 05/27/20 25 Active transparent dressings (TEGADERM) 3 1/2 X 4 BndgIndications :Type 1 diabetes mellitus with peripheral neuropathy Apply 1 each topically Every 10 Days. To cover the dexcom G6 CGM 9 each 3 05/15/20 25 Active COMFORT EZ PEN NEEDLES 32 gauge x 5/32 NdleIndications :Type 1 diabetes mellitus with nephropathy Inject 1 each under the skin 4 (four) times a day. 400 each 3 06/02/20 25 Active HUMALOG KWIKPEN INSULIN 100 unit/mL kwikpenIndicati ons:Type 1 diabetes mellitus with nephropathy 2-14 units, via scale, subcutaneously, tid AC 15 mL 5 06/02/20 25 Active insulin glargine (LANTUS SOLOSTAR U-100 INSULIN) 100 unit/mL (3 mL) InPn injection penIndications: Type 1 diabetes mellitus with nephropathy 14 units, or as directed, plus 2 units to prime needle with each dose 15 mL 5 06/02/20 25 Active alcohol PadM Apply topically 4 (four) times a day. 400 each 3 06/02/20 25 Active atorvastatin (LIPITOR) 10 MG tablet Take 10 mg by mouth daily. 05/26/20 25 Active PURE COMFORT SAFETY LANCETS 30 gauge MiscIndications :Type 1 diabetes mellitus with nephropathy Inject 1 each under the skin 4 (four) times a day before meals and nightly. 200 each 11 06/04/20 25 Active alcohol PadM 08/31/19 23 025 Discontin ued(Reord er) COMFORT EZ PEN NEEDLES 32 gauge x 5/32 NdleIndications :Type 1 diabetes mellitus with nephropathy Inject 1 each under the skin 4 (four) times a day. 400 each 3 02/15/20 24 025 Discontin ued(Reord er) PURE COMFORT SAFETY LANCETS 30 gauge MiscIndications :Type 1 diabetes mellitus with nephropathy Inject 1 each under the skin 4 (four) times a day before meals and nightly. 200 each 11 05/30/20 24 025 Discontin ued(Reord er) HUMALOG KWIKPEN INSULIN 100 unit/mL kwikpenIndicati ons:Type 1 diabetes mellitus with nephropathy 2-14 units, via scale, subcutaneously, tid AC 15 mL 5 05/30/20 24 025 Discontin ued(Reord er) blood sugar diagnostic Strp stripsIndicatio ns:Type 1 diabetes mellitus with nephropathy Inject 1 each under the skin 6 (six) times a day. Use as directed to monitor glucose once daily, to go with Embrace meter, to be used @ Day Program 600 strip 3 09/12/19 25 025 Discontin ued(Reord er) transparent dressings (TEGADERM) 3 07/24 X 4 BndgIndications :Type 1 diabetes mellitus with peripheral neuropathy Apply 1 each topically Every 10 Days. To cover the dexcom G6 CGM 9 each 3 12/04/19 25 025 Discontin ued(Reord er) insulin glargine (LANTUS SOLOSTAR U-100 INSULIN) 100 unit/mL (3 mL) InPn injection penIndications: Type 1 diabetes mellitus with nephropathy 14 units, or as directed, plus 2 units to prime needle with each dose 15 mL 5 03/10/20 25 025 Discontin ued(Reord er) alcohol PadM Apply topically 4 (four) times a day. 400 each 3 05/15/20 25 025 Discontin ued(Reord er) Active Problems Problem Noted Date Diagnosed Date Arthritis 04/24/2023 04/24/2023 Acquired hallux valgus 10/19/2022 Acquired hammer toe of left foot 10/19/2022 Acquired hammer toe of right foot 10/19/2022 Acquired hypothyroidism 10/19/2022 Assessment & Plan (06/08/2025 5:53 PM EST): Will check levels & adjust as appropriate. Assessment & Plan (09/12/2024 4:13 PM EST): [...] Dexcom supplier Taylor Becerril Assessment & Plan (06/08/2025 5:54 PM EST): Using CGM. Assessment & Plan (09/12/2024 4:14 PM EST): [...] mellitus with nephropathy 2020 Assessment & Plan (06/08/2025 5:56 PM EST): Control remains poor. We had recently increased lantus from 13 to 15 d/t highs, but is dropping overnight & having lows mid-late am, which is causing highs after. Will lower lantus from 15 to 14 & drop humalog at breakfast by 1 unit at each level of scale. Continue to work on eating healthy & keeping active. To call or send in BG with problems with glycemic control. Following w/ renal. BP under reasonable control. Assessment & Plan (03/10/2025 10:25 AM EDT): [...] his glucose levels. Up to date with [facility]. Sees podiatry. Labs ordered Assessment [...] his glucose levels. [facility] to date with [facility]. Sees podiatry. Labs ordered Assessment & Plan [...] quickly to gel, rx sent. RNs from [facility] ([facility]) would like some additional education @ dexcom. Gave them Dexcom reps contact information, could also refer to CDE if needed. Continue to work on eating healthy & keeping active. To call or send in BG with problems with glycemic control. Up to date with [facility]. Follows with podiatry. Will call for recent [...] with peripheral neuropa thy Assessment & Plan (06/08/2025 5:56 PM EST): Following w/ podiatry. Assessment & Plan (12/04/2024 11:14 AM EDT): [...] glucose levels. Up to date with [facility]. Sees podiatry. Labs ordered Assessment & Plan [...] diabetes mellitus with retinopathy Assessment & Plan (06/08/2025 5:56 PM EST): Following with ophtho. Assessment & Plan (09/12/2024 4:14 PM EST): Up to date with ophtho. Assessment & Plan (02/15/2024 9:41 AM EDT): Up to date with ophtho. Assessment & Plan (08/09/2023 12:28 PM EST): Up to date with ophtho. Assessment & Plan (04/24/2023 2:53 PM EDT): Up to date w/ Dr. Nataliya sawyer. Resolved Problems Problem Noted Date Diagnosed Date Resolved Date assisted (current) use of insulin 10/19/2022 04/24/2023 Encounters Date Type Department Care Team Description 06/10/2025 Telephone [facility] Endocrinology [address] [place] [address] [place] [address] Jade Cano MD ELEVATED BLOOD GLUCOSE LEVEL 06/08/2025 Telephone [facility] Endocrinology [place] [address] [place] [address] Jade Cano MD 06/04/2025 11:40 AM EST Office Visit [facility] Endocrinology [address] [place] [address] [place] [address] Jade Cano MD 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); Acquired hypothyroidism; 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; Type 1 diabetes mellitus with peripheral neuropathy; Type 1 diabetes mellitus with retinopathy, macular edema presence unspecified, unspecified laterality, unspecified retinopathy severity 06/02/2025 Refill [facility] [address] [place] [address] Luana Wild MA Medication Refill 06/01/2025 Telephone [facility] [address] [place] [address] Jade Cano MD 06/01/2025 Telephone [facility] [address] [place] [address] Jade Cano MD Reporting High Sugars 05/16/2025 Orders Only [facility] [address] [place] [address] [place] [address] Yarelis Theodore CNP 05/13/2025 Telephone [facility] Rheumatology [address] [place] [address] [place] [address] Jade Cano MD VNA Update 05/03/2025 Telephone [facility] [address] [place] [address] Courtney Esteban MD High blood sugars 04/11/2025 Telephone [facility] [address] [place] [address] Yarelis Theodore CNP Hyperglycemia 03/30/2025 Telephone [facility] [address] [place] [address] María Jessica PA-C Tracheostomy Tube Check (Re: blood sugars) from Last 3 Months Social History Tobacco [...] Sign Reading Time Taken Comments Blood Pressure 132/64 06/04/2025 11:24 AM EST Pulse 64 06/04/2025 11:24 AM EST Temperature 36.6 C (97.8 F) 11/16/2023 10:44 AM EDT Respiratory Rate - - Oxygen Saturation 99% 06/04/2025 11:24 AM EST Inhaled Oxygen Concentration - - Weight 59.6 kg (131 lb 8 oz) 06/04/2025 11:24 AM EST Height 139 cm (4' 6.72 ) 06/04/2025 11:24 AM EST Body Mass Index 30.87 06/04/2025 11:24 AM EST Plan of Treatment Upcoming Encounters Date Type Department Care Team (Late st Contact Info) Description 09/02/2025 10:00 AM EST Office Visit [facility] [address] [place] [address] Jade Cano MD [address] [place] [address] 12/08/2025 9:20 AM EDT Office Visit [facility] [address] [place] [address] María Jessica PA-C [address] [place] [address] 03/04/2026 11:40 AM EDT Office Visit [facility] [address] [place] [address] Jade Cano MD [address] [place] [address] Health Maintenance Due Date Last Done Comments Adult Td,Tdap Booster 1980 DEPRESSION SCREENING 1992 HEPATITIS C SCREENING 1998 HIV ONE-TIME SCREENING (18-65 YEARS) 1998 PNEUMOCOCCAL VACCINES (0-49 years) (1 of 2 - PCV) 11/25/1999 DIABETIC EYE EXAM 10/19/2022 INFLUENZA VACCINE (#1) 2025 COVID-19 VACCINE ( - 2024- season) 2025 HEMOGLOBIN A1C 09/04/2025 06/04/2025, 11/20, 09/12/2024, Additional history exists BLOOD PRESSURE 12/02/2025 06/04/2025 TSH LEVEL 06/04/2026 06/04/2025, 08/24, 05/30/2024, Additional history exists SMOKING STATUS SCREENING (Once After 26 Yrs) Completed 06/04/2025 HEPATITIS A VACCINES Aged Out No long [...] Date/Time Associated Diagnosis Comments HEMOGLOBIN A1C Routine 06/04/2025 1:32 PM EST Type 1 diabetes mellitus with nephropathy BASIC METABOLIC PANEL (BMP) Routine 06/04/2025 1:32 PM EST Type 1 diabetes mellitus with nephropathy ASPARTATE AMINOTRANSFERASE (AST) Routine 06/04/2025 1:32 PM EST Type 1 diabetes mellitus with nephropathy ALANINE AMINOTRANSFERASE (ALT) Routine 06/04/2025 1:32 PM EST Type 1 diabetes mellitus with nephropathy TSH WITH REFLEX Routine 06/04/2025 1:32 PM EST Acquired hypothyroidism from Last 3 Months Results * Thyroid Stimulating Hormone (TSH), with Reflex (06/04/2025 1:32 PM EST) TSH 2.37 0.40 - 5.00 uIU/mL 06/04/2025 7:40 PM EST [facility] Blood (Blood) Venipuncture / Unknown 06/04/2025 1:32 PM EST 06/04/2025 1:32 PM EST us Jade Cano MD LAB BLOOD BKR ORDERABL ES Final Result Performing Organization Address City/[facility]/ZIP Co de Phone Number [address] [address] * Alanine Aminotransferase (ALT) (06/04/2025 1:32 PM EST) ALT 14 <50 U/L 06/04/2025 7:4 0 PM EST [facility] Blood (Blood) Venipuncture / Unknown 06/04/2025 1:32 PM EST 06/04/2025 1:32 PM EST us Jade Cano MD LAB BLOOD BKR ORDERABL ES Final Result Performing Organization Address [facility] [[email or web address]] Co de Phone Number [address] [address] * Aspartate Aminotransferase (AST) (06/04/2025 1:32 PM EST) AST 18 <40 U/L 06/04/2025 7:4 0 PM EST [facility] Blood (Blood) Venipuncture / Unknown 06/04/2025 1:32 PM EST 06/04/2025 1:32 PM EST us Jade Cano MD LAB BLOOD BKR ORDERABL ES Final Result Performing Organization Address [facility] [[email or web address]] Co de Phone Number [address] [address] * (ABNORMAL) Hemoglobin A1c (06/04/2025 1:32 PM EST) Hemoglobin A1c 9.1(H) 4.3 - 5.6 % 06/04/2025 9:39 PM [facility] Calculated Mean Blood Glucose 214 mg/dL 06/04/2025 9:39 PM [facility] Comment:There is no [facility] normal range for the Estimated Average Glucose (EAG). However, a HbA1c of 5.6% (upper limit of normal) represents an EAG of 114 mg/dL. The diagnostic HbA1c level for diabetes is greater than or equal to 6.5%, which represents an EAG greater than or equal to 140 mg/dL. Blood (Blood) Venipuncture / Unknown 06/04/2025 1:32 PM EST 06/04/2025 1:32 PM EST Jade Cano MD LAB BLOOD BKR ORDERABL ES Final Result [address] [address] * (ABNORMAL) Basic Metabolic Panel (BMP) (06/04/2025 1:32 PM EST) Sodium 131(L) 136 - 145 mmol/L 06/04/2025 7:40 PM [facility] Potassium 5.6(H) 3.4 - 5.1 mmol/L 06/04/2025 7:40 PM [facility] Chloride 102 98 - 107 mmol/L 06/04/2025 7:40 PM [facility] CO2 20 20 - 31 mmol/L 06/04/2025 7:40 PM [facility] Anion Gap 9 3 - 17 mmol/L 06/04/2025 7:40 PM [facility] BUN 44(H) 6 - 23 mg/dL 06/04/2025 7:40 PM [facility] Creatinine 2.30(H) 0.60 - 1.30 mg/dL 06/04/2025 7:40 PM [facility] eGFR 35(L) >59 mL/min/1.7 3m2 06/04/2025 7:40 PM [facility] Comment:Estimated glomerular filtration rate calculated using the CKD-EPI refit equation. Glucose 177(H) 70 - 99 mg/dL 06/04/2025 7:40 PM EST [facility] Calcium 8.3(L) 8.5 - 10.5 mg/dL 06/04/2025 7:40 PM EST [facility] Blood (Blood) Venipuncture / Unknown 06/04/2025 1:32 PM EST 06/04/2025 1:32 PM EST Jade Cano MD LAB BLOOD BKR ORDERABL ES Final Result [facility] [address] [place] [address] from Last 3 Months Insurance [employer] PART A & B [employer] PART A & B [place] B Member Subscriber Plan / Payer (Ef fective 2017-Present) Name:Bernard Navarro Member ID:[id number] Relation to Subscriber:Self Name:Bernard Navarro Subscriber ID:[id number] Payer ID:[id number] Group ID:Not on file Type:Medicare Address: [employer] [address] [place] [id number] [facility] MEDICARE PART A & B [facility] MEDICARE PART A & B Care Teams Mobile Application Developer Relationship Specialty Start Date End Date Boris Mcgowan MD [address] [place] [address] [address] [place] [phone] PCP - General Internal Medicine 09/20/22 Pineda Tarango MD [address] [place] [address] [address] Nephrology 06/05/25 Additional Source Comments The information contained in this document represents components of the legal health record. It is not the complete legal health record.[facility]
--- OUTSIDE RECORDS SUMMARY | 2025-06-12 14:49 | XMS_ITS | Encounter Summary ---
Author Organization [facility] Address [address] [facility] [address] [place] [address] Phone Care Team Providers Care Proofreader Name Role Phone Boris Mcgowan MD Primary Care Provider [phone] Pineda Tarango MD Unavailable [phone] Reason for Visit * Reason Onset Date Comments Reporting High Sugars 06/01/2025 Encounter Details Date Type Department Care Team (Late st Contact Info) Description 06/01/2025 Telephone [facility] [address] [place] [address] Jade Cano MD [address] [place] [address] [email or web address] Reporting High Sugars Social History Tobacco Use Types Packs/Day Years [...] with a working camera? Not on file 05 / Sex and Gender Information Value Date Recorded Sex Assigned at Male 10/24/2024 12:09 AM EDT Legal Sex Male 2:12 PM EST Gender Identity Male 10/24/2024 12:09 AM EDT Sexual Orientation Not on file documented as of this encounter Progress Notes * María Jessica PA-C - 06/01/2025 4:26 PM EST FYI * Yulisa Zelaya RN - 06/01/2025 3:19 PM EST I called home and school visitor, Nicole Stout, I recapped what I was informed earlier from daycare RN. She verbalizes understanding. I asked her to make sure he comes in on to see Dr. Cano withhis Dexcom and blood sugar log readings from both daycare and care home readings. She said she will make sure he comes with everything. Also wants me to FYI you that he will see pcp 2 weeks from [facility] to do work up over there also. * María Jessica PA-C - 06/01/2025 2:58 PM EST Please call the house to make sure that they bring in Bernard's readings to his visit with Dr Cano on . Thanks * Yulisa Zelaya RN - 06/01/2025 2:49 PM EST I called JYOTSNA Alejandre, at [facility], Pt's blood sugar at 1130 am read HIGH, given 7 units of his short acting insulin. Pt was told to drink 16 ounces of water per hour and exercising, and he was compliant, and was rechecked two hours later, and still read HIGH. Denies any sx's at all. He's actingas usual. Denies polyuria. Reports normally if he's low, they will have some indication, because hewill start to cry, and if really high, he will get aggressive/ mean/grumpy. He has no complaints and is doing as told. Just wanted to make us aware. Pt still there now. * Yulisa Mckenzie - 06/01/2025 1:58 PM EST [facility] asked to call if the patient has (2) high readings in a row. 11:30 am high, given 7 units, another high reading at 1:50 pm documented in this encounter Plan of Treatment Upcoming Encounters Date Type Department Care Team (Late st Contact Info) Description 09/02/2025 10:00 AM EST Office Visit [facility] [address] [place] [address] Jade Cano MD [address] [place] [address] 12/08/2025 9:20 AM EDT Office Visit [facility] [address] [place] [address] [place] [address] María Jessica PA-C [address] [place] [address] 03/04/2026 11:40 AM EDT Office Visit [facility] [address] [place] [address] Jade Cano MD [address] [place] [address] documented as of this encounter Visit Diagnoses Not on filedocumented in this encounter Care Teams Proofreader Relationship Specialty Start Date End Date Boris Mcgowan MD [address] [place] [phone] PCP - General Internal Medicine 09/20/22 Pineda Tarango MD [address] [place] [address] [address] [place] [address] Nephrology 06/05/25 documented as of this encounter Additional Source Comments The information contained in this document represents components of the legal health record. It is not the complete legal health record.[facility]
--- OUTSIDE RECORDS SUMMARY | 2025-06-12 14:49 | XMS_ITS | Encounter Summary ---
Author Organization [facility] Address [address] [place] [id number] Phone Care Team Providers Care Mushroom Growing Supervisor Name Role Phone Boris Mcgowan MD Primary Care Provider [phone] Pineda Tarango MD Unavailable [phone] Reason for Visit * Reason Onset Date Comments ELEVATED BLOOD GLUCOSE LEVEL 06/10/2025 Encounter Details Date Type Department Care Team (Late st Contact Info) Description 06/10/2025 Telephone [facility] [address] [place] [address] Jade Cano MD [address] [place] [phone] [email or web address] ELEVATED BLOOD GLUCOSE LEVEL Social History Tobacco Use Types Packs/Day Years [...] as of this encounter Progress Notes * Stacy Puentes LPN - 06/10/2025 4:22 PM EST Call back to patients alf and spoke with alf director Martha and she is advised we received call from vna at 7am today reporting that pts blood sugars have been elevated. Martha reports she is not aware of pt having higher b.s.'s and she will monitor pt and speak to pts daycare tosee if pt had any sx's .Originally message was taken from extrusion supervisor service and we were not given any information about vna calling us, they told office that cell manager called and provided her call back number. Martha is advised to call us back if any problems with blood sugars being out ofrange. * Yulisa Mckenzie - 06/10/2025 2:53 PM EST Marnie / Jimena [facility] [phone] (leaves message with after hours answering service) Patient reporting an elevated fasting blood glucose level, no symptoms, patient had a lot of pizza last night. Please call, if any questions? documented in this encounter Plan of Treatment Upcoming Encounters Date Type Department Care Team (Late st Contact Info) Description 09/02/2025 10:00 AM EST Office Visit [facility] [address] [place] [address] [place] [address] Jade Cano MD [address] [place] [address] 12/08/2025 9:20 AM EDT Office Visit [facility] [address] [place] [address] María Jessica PA-C [address] [place] [address] 03/04/2026 11:40 AM EDT Office Visit [facility] [address] [place] [address] Jade Cano MD [address] [address] documented as of this encounter Visit Diagnoses Not on filedocumented in this encounter Care Teams Mushroom Growing Supervisor Relationship Specialty Start Date End Date Boris Mcgowan MD [address] [place] [address] [address] [place] [phone] PCP - General Internal Medicine 09/20/22 Pineda Tarango MD [address] [place] [address] Nephrology 06/05/25 documented as of this encounter Additional Source Comments The information contained in this document represents components of the legal health record. It is not the complete legal health record.[facility]
--- OUTSIDE RECORDS SUMMARY | 2025-06-12 14:49 | XMS_ITS | Encounter Summary ---
Author Organization [facility] Address [address] [facility] [address] [place] [address] Phone Care Team Providers Care Textile Supervisor Name Role Phone Boris Mcgowan MD Primary Care Provider [phone] Pineda Tarango MD Unavailable [phone] Encounter Details Date Type Department Care Team (Late st Contact Info) Description 06/08/2025 Telephone [facility] Endocrinology [address] [address] Jade Cano MD [address] [place] [phone] [email or web address] Social History Tobacco Use Types Packs/Day Years [...] as of this encounter Progress Notes * Luana Wild MA - 06/09/2025 8:51 AM EST Per parachute pt get supplies from reliable, submitted order * Jade Cano MD - 06/08/2025 5:52 PM EST Pls confirm where he is getting his dexcom from as plan to shift him to antoni 3+, if reliable, pls fwd paperwork (may be lanza) documented in this encounter Plan of Treatment Upcoming Encounters Date Type Department Care Team (Late st Contact Info) Description 09/02/2025 10:00 AM EST Office Visit [facility] [address] [place] [address] [place] [address] Jade Cano MD [address] [place] [address] 12/08/2025 9:20 AM EDT Office Visit [facility] [address] [place] [address] María Jessica PA-C [address] [place] [phone] 03/04/2026 11:40 AM EDT Office Visit [facility] [address] [place] [address] Jade Cano MD [address] [place] [phone] [email or web address] documented as of this encounter Visit Diagnoses Not on filedocumented in this encounter Care Teams Textile Supervisor Relationship Specialty Start Date End Date Boris Mcgowan MD [address] [place] [address] Drive [address] [place] [phone] PCP - General Internal Medicine 09/20/22 Pineda Tarango MD [address] [place] [address] [place] [address] Nephrology 06/05/25 documented as of this encounter Additional Source Comments The information contained in this document represents components of the legal health record. It is not the complete legal health record.[facility]
--- OUTSIDE RECORDS SUMMARY | 2025-06-12 14:49 | XMS_ITS | Clinical Summary ---
Author Organization [facility] Facility Address [address] [address] Care Team Providers Care Sizing Sprayer Name Role Phone Boris Mcgowan MD Primary Care Provider [phone] Allergies No known active allergies Medications aspirin [...] Medicaid [place] Care Teams Sizing Sprayer Relationship Specialty Start Date End Date Boris Mcgowan MD [address] [place] PCP - General 08/02/20
== END 2025-06-12 14:44 | disposition home or self-care (01) ==
LOC: HO.HPS 14:27
PROVIDERS: PCP Internal Medicine; Visit Provider Internal Medicine Pulmonary Disease
DX: J84.112 Idiopathic pulmonary fibrosis (principal); R05.9 Cough, unspecified
CPT/HCPCS: 99214

== ENCOUNTER → 2025-06-12 14:27 | Outpatient (BNVA) | payer MEDICARE, MEDICAID, SELFPAY | PROVIDERS: PCP Internal Medicine; Visit Provider Internal Medicine Pulmonary Disease | DX: R05.3 Chronic cough (principal); J84.112 Idiopathic pulmonary fibrosis | CPT/HCPCS: 99212 ==

== ENCOUNTER 2025-06-23 11:45 | Outpatient (AMB) | payer MEDICARE, MEDICAID, SELFPAY ==
[2025-06-23 11:54] VITALS: BP 130/72; PULSE 66; O2SAT 97; BMI 27.5
--- NOTE | 2025-06-23 11:54 | MHC.PC.OV ---
Vital Signs 06/23/25 11:54 Height 4 ft 9 in Weight 127 lb BMI 27.5 BP 130/72 Blood Pressure Location Lt brachial Position Sitting Pulse 66 Pulse Source Pulse Oximeter Pulse Oximetry (%) 97 Oxygen Delivery Method Room Air Intake Visit Reasons: 3 month f/u Allergies Sulfa (Sulfonamide Antibiotics) (SULFA(SULFONAMIDE ANTIBIOTICS)) Allergy (Intermediate, Verified 06/23/25 11:54) ITCHING doxycycline Adverse Reaction (Intermediate, Verified 06/23/25 11:54) Pancreatitis Medication List - Last Reconciled 06/23/25 by Boris Mcgowan MD acetaminophen (Tylenol) 650 mg (2 x 325 mg) PO Q6H PRN albuterol sulfate 90 mcg/actuation (Ventolin HFA) 2 puffs inhalation Q4-6H PRN amlodipine 5 mg PO DAILY ascorbic acid (vitamin C) (Vitamin C) 500 mg PO DAILY aspirin 81 mg PO DAILY atorvastatin (Lipitor) 10 mg PO DAILY azithromycin mg PO bisacodyl (Dulcolax (bisacodyl)) 10 mg (2 x 5 mg) PO BEDTIME blood sugar diagnostic (FreeStyle Lite Strips) As directed cetirizine 10 mg PO DAILY cholecalciferol (vitamin D3) (Vitamin D3) 50 mcg (2 x 25 mcg (1,000 unit)) PO DAILY 30 days ciclopirox 0.77% 1 appl topical BID citalopram 20 mg PO DAILY diclofenac sodium 1% 4 grams topical Q6H PRN docusate sodium 200 mg (2 x 100 mg) PO BEDTIME famotidine (Pepcid) 20 mg PO BEDTIME ferrous sulfate 325 mg PO DAILY@1600 folic acid 0.8 mg PO DAILY glucose 16 grams PO Q15M PRN insulin glargine (Lantus Solostar U-100 Insulin) 13 units subcut DAILY@1700 insulin lispro (Humalog KwikPen (U-100) Insulin) 1 sliding scale dose See Protocol subcut TIDAC ipratropium-albuterol 0.5 mg-3 mg(2.5 mg base)/3 mL 3 mL inhalation BID 30 days isoniazid 300 mg PO DAILY 5 days levothyroxine 112 mcg PO DAILY@0600 fwugeg-savhkipm-mxhlmas (pork) 24,000-76,000 -120,000 unit (Creon) 2 caps PO QID lorazepam 0.5 mg orally 1-2 tabs prn 1 hour before the procedure PRN; metoprolol succinate ER 25 mg See Protocol PO BEDTIME nystatin 1 appl topical BID PRN omeprazole 20 mg PO DAILY@0630 ondansetron 4 mg PO Q8H PRN peg 400-propylene glycol (PF) 0.4-0.3 % (Systane (PF)) 1 drp ophthalmic (eye) QID PRN pen needle, diabetic (Comfort EZ Pen [place]) As directed pen needle, diabetic As directed pen needle, diabetic, safety (True Comfort Safety Pen Needle) As directed polyethylene glycol 3350 (Miralax) 17 grams PO DAILY simethicone 125 mg PO BID-QID PRN sodium zirconium cyclosilicate (Lokelma) 5 grams PO MOWEFR tamsulosin 0.8 mg (2 x 0.4 mg) PO DAILY@1700 90 days zinc oxide-cod liver oil 40 % (Desitin) 1 appl topical DAILY Tobacco use date assessed: 03/17/25 Dental Screening Dental Screen Date: 03/17/25 HPI HPI Comments History of Present Illness Details History of Present Illness The patient is a 44 year old individual presenting for follow-up for multiple chronic conditions. The patient has a history of Down syndrome, is overweight, and was last seen in February 2025. The patient has a history of type 1 diabetes mellitus and follows up with Dr. Cano for endocrinology. The patient is on Lantus and Humalog. Blood work from June 04, 2025, showed a hemoglobin A1c of 9.1 and a blood glucose level of 177 mg/dL. The patient has chronic kidney and cardiac disease and follows up with nephrology. Recent labs showed a BUN of 44, creatinine of 2.3, sodium of 131, and potassium of 5.6. An ZELALEM inhibitor was discontinued due to hyperkalemia, and the patient was placed on Lokelma. For hypertension, the patient takes metoprolol 25 mg daily. For pulmonary fibrosis, the patient follows up with pulmonology and is on azithromycin three times a week and albuterol. The patient has a history of GERD and pancreatitis, for which the patient has seen gastroenterology and is being treated with Creon, a PPI, and an H2 dean. For urologic issues including BPH, neurogenic bladder, and urinary retention, the patient follows up with urology and takes tamsulosin. Other chronic conditions include hypothyroidism with a normal TSH of 2.37 on medication, and hypercholesterolemia, treated with atorvastatin 10 mg daily. The patient also has a history of anemia, with a hemoglobin of 11.9 and hematocrit of 35.3 in October. Liver function tests are normal. Health Maintenance - Hyperlipidemia management: LDL goal is less than 100 mg/dL and triglyceride goal is less than 150 mg/dL. Social History Results - Laboratory results from June 04, 2025: - Hemoglobin A1c: 9.1% - TSH: 2.37 (Normal) - Liver function: Normal - Sodium: 131 mEq/L - Potassium: 5.6 mEq/L - BUN: 44 mg/dL - Creatinine: 2.3 mg/dL - Glucose: 177 mg/dL - Laboratory results from October: - Hemoglobin: 11.9 g/dL - Hematocrit: 35.3% [facility] Medical History Renal insufficiency Renal insufficiency Cellulitis Constipation Ascites Pericardial effusion Urethral meatal stenosis Mental and behavioral problem Hypercholesterolemia Down syndrome GERD (gastroesophageal reflux disease) BPH (benign prostatic hyperplasia) Hypothyroid Anxiety and depression Pseudoseizures Diabetes mellitus type 1 Surgical History Hx of cataract surgery Family History Father Medical history unknown Mother Medical history unknown Maternal Grandfather Prostate cancer Social History Household Members: Other Household Members Other:: senior living Housing: Other Housing Other:: senior living Do you presently have visiting nurse or other home services: No Alcohol intake: never Comment: 1:1 Sitter Patient Tobacco Use Status: Never used Tobacco Tobacco use type: Cigarette e-Cigarette/Vaping Use: Never Used Second Hand Smoke Exposure: No service: No Current occupational status: disabled Cognitive needs: No Hearing needs: No Vision needs: No Questionnaire Thrive Questionnaire Date Thrive assessed: 03/17/25 I am a: Patient What is your living situation today?: I have a steady place to live Within the past 12 months, did the food you bought not last and you didn't have the money to get more?: Never true Within the past 12 months, did you worry whether your food would run out before you got money to buy more?: Never true Do you have trouble paying for medicines?: No Do you have trouble getting transportation to medical appointments?: No Do you have trouble paying your heating and electricity bill?: No Do you have trouble taking care of your child, family member or friend?: No Do you have trouble with day-to-day activities such as bathing, preparing meals, shopping, managing finances, etc.?: Yes Are you currently unemployed and looking for a job?: No Are you interested in more education?: No Please select the resources that you would like help with: None Currently or been in a relationship where the following occur: No concerns reported THRIVE Score: 0 GAGE-7 AMB Questionnaire GAGE-7 Date GAGE - 7 assessed: 07/24/24 Source: Developed by Drs. Rhys Carvalho, Bernadette Flanagan, Sundeep Gee and colleagues, with an educational odilon from [employer]. Review of Systems Narrative Review of Systems Physical exam (Primary Care) Vital Signs: Last Vital Signs Pulse 66 06/23/25 11:54 BP 130/72 06/23/25 11:54 Pulse Ox 97 06/23/25 11:54 Oxygen Delivery Method Room Air 06/23/25 11:54 BMI result Body Mass Index 27.5 Tobacco/Smoking Status: Tobacco use Status Tobacco use date assessed 03/17/25 06/23/25 11:56 Patient Tobacco Use Status Never used Tobacco 06/23/25 11:56 Tobacco use type Cigarette 06/23/25 11:56 e-Cigarette/Vaping Use Never Used 06/23/25 11:56 Thrive Assessment: Date of Thrive Assessment Date Thrive assessed 03/17/25 06/23/25 11:56 Currently or been in a relationship where the following occur: No concerns reported Narrative Physical Exam Const General: alert; No acute distress Eyes Conjunctivae: conjunctivae normal Resp Auscultation: clear to auscultation bilaterally Cardio Rate: regular rate Rhythm: regular rhythm GI Inspection: Yes normal to inspection Extrem General: Yes normal to inspection and No edema Coding Level of Care Code Est Pt Level 4 (04606) Diagnoses Type 1 diabetes mellitus with hyperglycemia E10.65 Diabetes mellitus complication status: with hyperglycemia Hypertension I10 Hypercholesterolemia E78.00 Acquired hypothyroidism E03.9 Hypothyroidism type: acquired Gastroesophageal reflux disease without esophagitis K21.9 Esophagitis presence: without esophagitis CKD (chronic kidney disease) N18.9 Benign prostatic hyperplasia with urinary frequency N40.1; R35.0 Lower urinary tract symptom detail: urinary frequency Lower urinary tract symptom presence: symptoms present IPF (idiopathic pulmonary fibrosis) J84.112 Assessment & Plan Assessment & Plan (1) Diabetes mellitus type 1: Comment: DKParvez April 2018, Dr. Salcedo Code(s): E10.9 - Type 1 diabetes mellitus without complications Category: Medical Qualifiers: Diabetes mellitus complication status: with hyperglycemia Qualified Code(s): E10.65 - Type 1 diabetes mellitus with hyperglycemia Plan: Decrease the amount of carbohydrate intake, pasta, bread, rice and potatoes are all sugar and that is aside from all the sweet stuff, remember that fruits are good but they are Sweet also. Patient follows up with endocrinology Dr. Hernández on Lantus and Humalog (2) Hypertension: Code(s): I10 - Essential (primary) hypertension Category: Medical Plan: Continue with blood pressure medication. Decrease salt intake and exercise metoprolol 25 mg once a day (3) Hypercholesterolemia: Code(s): E78.00 - Pure hypercholesterolemia, unspecified Category: Medical Plan: Avoid fried foods, chicken skin, eggs, butter margarine, pastries and meat. Be it pork or beef they have a lot of cholesterol LDL goal of less than 100 and triglyceride of less than 150 on atorvastatin 10 mg once a day (4) Hypothyroid: Code(s): E03.9 - Hypothyroidism, unspecified Category: Medical Qualifiers: Hypothyroidism type: acquired Qualified Code(s): E03.9 - Hypothyroidism, unspecified Plan: Continue with thyroid medication (5) GERD (gastroesophageal reflux disease): Code(s): K21.9 - Gastro-esophageal reflux disease without esophagitis Category: Medical Qualifiers: Esophagitis presence: without esophagitis Qualified Code(s): K21.9 - Gastro-esophageal reflux disease without esophagitis Plan: Avoid the foods that causes that usually spicy foods, tomato products, juices, coffee, soda and foods that your sensitive to. After eating do not lie down, allow 3-4 hours before in lie down. And keep the head of bed above 30 degrees to avoid the acid from going up. (6) CKD (chronic kidney disease): Code(s): N18.9 - Chronic kidney disease, unspecified Category: Medical Plan: Patient follows up with Nephrology Zelalem inhibitor taken off due to hyperkalemia, placed on Lokelma (7) BPH (benign prostatic hyperplasia): Code(s): N40.0 - Benign prostatic hyperplasia without lower urinary tract symptoms Category: Medical Qualifiers: Lower urinary tract symptom detail: urinary frequency Lower urinary tract symptom presence: symptoms present Qualified Code(s): N40.1 - Benign prostatic hyperplasia with lower urinary tract symptoms; R35.0 - Frequency of micturition Plan: Patient continue to follow-up with urology on tamsulosin (8) IPF (idiopathic pulmonary fibrosis): Code(s): J84.112 - Idiopathic pulmonary fibrosis Category: Medical Plan: Continue to follow-up with Pulmonary and on nebs albuterol. Plan Plan Patient was informed and verbally consented to the use of an ambient scribe for clinic note documentation during this visit. 1. Type 1 Diabetes Mellitus The patient will continue to follow up with endocrinology with Dr. Cano. Continue current insulin regimen of Lantus and Humalog. 2. Hypertension Continue metoprolol 25 mg once daily for blood pressure control. 3. Hypercholesterolemia Continue atorvastatin 10 mg once a day with a goal LDL of less than 100 and triglycerides of less than 150. 4. Hypothyroidism Continue current thyroid medication. 5. Gastroesophageal Reflux Disease Continue current reflux management. 6. Chronic Kidney Disease The patient will continue to follow up with nephrology. Continue Lokelma for hyperkalemia management, as the ZELALEM inhibitor was discontinued. 7. Benign Prostatic Hyperplasia The patient will continue to follow up with urology and continue taking tamsulosin. 8. Pulmonary Fibrosis The patient will continue to follow up with pulmonology and continue treatment with nebulized albuterol. Discussion Notes Patient Instructions - Continue to take all your current medications as prescribed by your doctors. This includes your insulin (Lantus and Humalog), blood pressure medicine (metoprolol), cholesterol medicine (atorvastatin), thyroid medicine, and bladder medicine (tamsulosin). - Continue your medications for your lung condition, including azithromycin and albuterol. - Continue taking Lokelma to help manage the high potassium levels in your blood. - Keep your follow-up appointments with your specialists: Dr. Cano for diabetes, the first crusher for your kidney disease, the urologist for your bladder issues, and the health and safety instructor for your lung disease. - The goals for your cholesterol treatment are to keep your LDL ( bad ) cholesterol level below 100 and your triglycerides below 150. Orders: Orders AMB Hemoglobin A1c Today Z13.9 - Encounter for screening, unspecified Free T4 (Free Thyroxine) Today E03.9 - Hypothyroidism, unspecified IRON PROFILE Today E78.00 - Pure hypercholesterolemia, unspecified Ferritin Today E78.00 - Pure hypercholesterolemia, unspecified Creatinine Urine Today E11.65 - Type 2 diabetes mellitus with hyperglycemia, E78.00 - Pure hypercholesterolemia, unspecified Magnesium Today E78.00 - Pure hypercholesterolemia, unspecified Thyroid Stimulating Hormone Today E03.9 - Hypothyroidism, unspecified Complete Blood Count Auto Diff Today E78.00 - Pure hypercholesterolemia, unspecified Comprehensive Met. Panel Today E78.00 - Pure hypercholesterolemia, unspecified Lipid Panel Today E78.00 - Pure hypercholesterolemia, unspecified Microalbumin, Random (w Creat) Today E11.65 - Type 2 diabetes mellitus with hyperglycemia, E78.00 - Pure hypercholesterolemia, unspecified Vitamin B12 and Folate Today E78.00 - Pure hypercholesterolemia, unspecified Reticulocyte Count Today E78.00 - Pure hypercholesterolemia, unspecified Medications: New cetirizine 10 mg PO DAILY 30 tabs 12RF allergy symptoms E78.00 - Pure hypercholesterolemia, unspecified Changed From cholecalciferol (vitamin D3) (Vitamin D3) 25 mcg PO DAILY E78.00 - Pure hypercholesterolemia, unspecified To cholecalciferol (vitamin D3) (Vitamin D3) 50 mcg (2 x 25 mcg (1,000 unit)) PO DAILY 60 tabs 12RF 30 days E78.00 - Pure hypercholesterolemia, unspecified Refilled metoprolol succinate ER 25 mg See Protocol PO BEDTIME 90 tabs 3RF E78.00 - Pure hypercholesterolemia, unspecified famotidine (Pepcid) 20 mg PO BEDTIME 90 tabs 3RF K21.9 - Gastro-esophageal reflux disease without esophagitis levothyroxine 112 mcg PO DAILY@0600 30 tabs 12RF E78.00 - Pure hypercholesterolemia, unspecified aspirin take with food 81 mg PO DAILY 90 tabs 3RF E78.00 - Pure hypercholesterolemia, unspecified atorvastatin (Lipitor) 10 mg PO DAILY 30 tabs 12RF E78.00 - Pure hypercholesterolemia, unspecified ascorbic acid (vitamin C) (Vitamin C) 500 mg PO DAILY 90 tabs 3RF E78.00 - Pure hypercholesterolemia, unspecified Discontinued levofloxacin Discontinued Reason: Patient Completed Course 500 mg PO DAILY 5 days 5 tabs 0RF
--- OUTSIDE RECORDS SUMMARY | 2025-06-23 13:57 | XMS_ITS | Clinical Summary ---
Author Organization [facility] Facility Address [address] [address] Care Team Providers Care Fisheries Technical Officer Name Role Phone Boris Mcgowan MD Primary Care Provider [phone] Allergies No known active allergies Medications aspirin [...] Medicaid [place] Care Teams Fisheries Technical Officer Relationship Specialty Start Date End Date Boris Mcgowan MD [address] [place] PCP - General 08/02/20
--- OUTSIDE RECORDS SUMMARY | 2025-06-23 13:57 | XMS_ITS | Clinical Summary ---
Author Organization [facility] Address [address] [place] [address] Phone Care Team Providers Care Skin Diver Name Role Phone Boris Mcgowan MD Primary Care Provider [phone] Pineda Tarango MD Unavailable [phone] Allergies Active Allergy Reactions Criticality Noted Date [...] Active ferrous sulfate 325 mg (65 mg chenega iron) EC tablet Take 325 mg by [...] prime needle with each dose 15 mL 06/02/20 25 Active alcohol PadM Apply topically 4 (four) times a day. 400 each 3 06/02/20 25 Active atorvastatin (LIPITOR) 10 MG tablet Take 10 mg by mouth daily. 05/26/20 25 Active PURE COMFORT SAFETY LANCETS 30 gauge MiscIndications :Type 1 diabetes mellitus with nephropathy Inject 1 each under the skin 4 (four) times a day before meals and nightly. 200 each 06/04/20 25 Active COMFORT EZ PEN NEEDLES 32 [...] via scale, subcutaneously, tid AC 15 mL 05/30/20 24 025 Discontin ued(Reord er) insulin glargine (LANTUS [...] diabetes mellitus 10/19/2022 Overview (10/19/2022): Dexcom supplier - [employer] Assessment & Plan (06/08/2025 5:54 PM EST): [...] glucose levels. Up to date with ophtho. [facility]. Labs ordered Assessment & Plan (09/12/2024 [...] glucose levels. Up to date with ophtho. [facility]. Labs ordered Assessment & Plan (02/15/2024 [...] Problem Noted Date Diagnosed Date Resolved Date custodial (current) use of insulin 10/19/2022 04/24/2023 Encounters Date Type Department Care Team Description 06/22/2025 Telephone [facility] [address] [place] [address] [place] [address] Jade Cano MD High Sugars at 572 (High Sugars at 572) 06/19/2025 Telephone [facility] [address] [place] [address] [place] [address] Courtney Esteban MD Meter reads high blood sugar 06/13/2025 Telephone [facility] [address] [place] [address] [place] [address] Yarelis Theodore, FADUMO Hyperglycemia 06/10/2025 Telephone [facility] [address] [place] [address] [place] [address] Jade Cano MD ELEVATED BLOOD GLUCOSE LEVEL 06/08/2025 Telephone [facility] Endocr[facility] [address] [place] [address] Jade Cano MD 06/04/2025 11:40 AM EST Office Visit [facility] [address] [place] [address] [place] [address] Jade Cano MD 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); Acquired hypothyroidism; 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; Type 1 diabetes mellitus with peripheral neuropathy; Type 1 diabetes mellitus with retinopathy, macular edema presence unspecified, unspecified laterality, unspecified retinopathy severity 06/02/2025 Refill [facility] [address] [place] [address] Luana Wild MA Medication Refill 06/01/2025 Telephone [facility] [address] [place] [address] Jade Cano MD 06/01/2025 Telephone [facility] [address] [place] [address] Jade Cano MD Reporting High Sugars 05/16/2025 Orders Only [facility] [address] [place] [address] Yarelis Theodore, FADUMO 05/13/2025 Telephone [facility] [address] [place] [address] Jade Cano MD VNA Update 05/03/2025 Telephone [facility] [address] [place] [address] Courtney Esteban MD High blood sugars 04/11/2025 Telephone [facility] [address] [place] [address] Yarelis Theodore, QUARTER SUPERVISOR Hyperglycemia 03/30/2025 Telephone [facility] [address] [place] [address] María Jessica PA-C Tracheostomy Tube Check (Re: [...] AM EST Office Visit [facility] [address] [place] [address] Jade Cano MD [address] [place] [address] 12/08/2025 9:20 AM EDT Office Visit [facility] [address] [place] [address] María Jessica PA-C [address] [place] [address] 03/04/2026 11:40 AM EDT Office Visit [facility] [address] [place] [address] Jade Cano MD [address] [place] [address] Health Maintenance Due Date Last Done Comments Adult Td,Tdap Booster 1980 DEPRESSION SCREENING 1992 HEPATITIS C SCREENING 1998 HIV ONE-TIME SCREENING (18-65 YEARS) 1998 PNEUMOCOCCAL VACCINES (0-49 years) (1 of 2 - PCV) 11/25/1999 DIABETIC EYE EXAM 10/19/2022 INFLUENZA VACCINE (#1) 2025 COVID-19 VACCINE (1 - 2024-26 season) 2025 HEMOGLOBIN A1C 09/04/2025 06/04/2025, 11/20, [...] - 5.00 uIU/mL 06/04/2025 7:40 PM EST [facility] Blood (Blood) Venipuncture / Unknown 06/04/2025 1:32 PM EST 06/04/2025 1:32 PM EST us Jade Cano MD LAB BLOOD BKR ORDERABL ES Final Result Performing Organization Address [facility] Co de Phone Number [address] [address] * Alanine Aminotransferase (ALT) (06/04/2025 1:32 PM EST) ALT 14 <50 U/L 06/04/2025 7:4 0 PM EST [facility] Blood (Blood) Venipuncture / Unknown 06/04/2025 1:32 PM EST 06/04/2025 1:32 PM EST us Jade Cano MD LAB BLOOD BKR ORDERABL ES Final Result Performing Organization Address [facility] Co de Phone Number [address] [address] * Aspartate Aminotransferase (AST) (06/04/2025 1:32 PM EST) AST 18 <40 U/L 06/04/2025 7:4 0 PM [facility] Blood (Blood) Venipuncture / Unknown 06/04/2025 1:32 PM EST 06/04/2025 1:32 PM EST us Jade Cano MD LAB BLOOD BKR ORDERABL ES Final Result Performing Organization Address [facility]/ZIP Co de Phone Number [address] [address] * (ABNORMAL) Hemoglobin A1c (06/04/2025 1:32 PM EST) Hemoglobin A1c 9.1(H) 4.3 - 5.6 % 06/04/2025 9:39 PM EST [facility] Calculated Mean Blood Glucose 214 mg/dL 06/04/2025 9:39 PM [facility] Comment:There is no [facility] normal range for the Estimated Average Glucose [...] LAB BLOOD BKR ORDERABL ES Final Result [address] [address] * (ABNORMAL) Basic Metabolic Panel (BMP) (06/04/2025 1:32 PM EST) Sodium 131(L) 136 - 145 mmol/L 06/04/2025 7:40 PM [facility] Potassium 5.6(H) 3.4 - 5.1 mmol/L 06/04/2025 7:40 PM [facility] Chloride 102 98 - 107 mmol/L 06/04/2025 7:40 PM [facility] CO2 20 20 - 31 mmol/L 06/04/2025 7:40 PM [facility] Anion Gap 9 3 - 17 mmol/L 06/04/2025 7:40 PM [facility] BUN 44(H) 6 - 23 mg/dL 06/04/2025 7:40 PM [facility] Creatinine 2.30(H) 0.60 - 1.30 mg/dL 06/04/2025 7:40 PM [facility] eGFR 35(L) >59 mL/min/1.7 3m2 06/04/2025 7:40 PM [facility] Comment:Estimated glomerular filtration rate calculated using the CKD-EPI refit equation. Glucose 177(H) 70 - 99 mg/dL 06/04/2025 7:40 PM [facility] Calcium 8.3(L) 8.5 - 10.5 mg/dL 06/04/2025 7:40 PM EST [facility] Blood (Blood) Venipuncture / Unknown 06/04/2025 1:32 PM EST 06/04/2025 1:32 PM EST Jade Cano MD LAB BLOOD BKR ORDERABL ES Final Result Performing Organization Address City/State/[facility] Co de Phone Number [facility] [address] [place] [address] from Last 3 Months Insurance [place] & B Care Teams Skin Diver Relationship Specialty Start Date End Date Boris Mcgowan MD [address] [place] [address] Drive [address] [place] [phone] PCP - General Internal Medicine 09/20/22 Pienda Tarango MD [address] [place] [address] [address] [place] [address] [place] [address] Nephrology 06/05/25 Additional Source Comments The information contained in this document represents components of the legal health record. It is not the complete legal health record.[facility]
--- OUTSIDE RECORDS SUMMARY | 2025-06-23 13:58 | XMS_ITS | Encounter Summary ---
Author Organization [facility] Address [address] [facility] [address] [place] [address] Phone Care Team Providers Care Rn Travel Name Role Phone Boris Mcgowan MD Primary Care Provider [phone] Pineda Tarango MD Unavailable [phone] Reason for Visit * Reason Onset Date Comments ELEVATED BLOOD GLUCOSE LEVEL 06/10/2025 Encounter Details Date Type Department Care Team (Late st Contact Info) Description 06/10/2025 Telephone [facility] [address] [place] [address] Jade Cano MD [address] [place] [address] [email or web address] ELEVATED BLOOD GLUCOSE LEVEL Social History Tobacco [...] 4:22 PM EST Call back to patients snf and spoke with snf director Martha and she is advised we received call from vna at 7am today reporting that pts blood sugars have been elevated. Martha reports she is not aware of pt having higher b.s.'s and she will monitor pt and speak to pts daycare tosee if pt had any sx's .Originally message was taken from cafeteria monitor service and we were not given any information about vna calling us, they told office that group activities aide called and provided her call back number. Martha is advised to call us back if any problems with blood sugars being out ofrange. * Yulisa Mckenzie - 06/10/2025 2:53 PM EST Marnie / [facility] [phone] (leaves message with after hours answering service) Patient reporting an elevated fasting blood glucose level, no symptoms, patient had a lot of pizza last night. Please call, if any questions? documented in this encounter Plan of Treatment Upcoming Encounters Date Type Department Care Team (Late st Contact Info) Description 09/02/2025 10:00 AM EST Office Visit [facility] [address] [place] [address] [place] [address] Jade Cano MD [address] [place] [address] 12/08/2025 9:20 AM EDT Office Visit [facility] [address] [place] [address] María Jessica PA-C 22 [place] [address] 03/04/2026 11:40 AM EDT Office Visit [facility] [address] [place] [address] Jade Cano MD [address] [address] documented as of this encounter Visit Diagnoses Not on filedocumented in this encounter Care Teams Rn Travel Relationship Specialty Start Date End Date Boris Mcgowan MD [address] [place] [address] [address] [place] [phone] PCP - General Internal Medicine 09/20/22 Pineda Tarango MD [address] [place] [address] Nephrology 06/05/25 documented as of this encounter Additional Source Comments The information contained in this document represents components of the legal health record. It is not the complete legal health record.[facility]
--- OUTSIDE RECORDS SUMMARY | 2025-06-23 13:58 | XMS_ITS | Encounter Summary ---
Author Organization [facility] Address [address] [facility] [address] [place] [address] Phone Care Team Providers Care Core Maker Name Role Phone Boris Mcgowan MD Primary Care Provider [phone] Pineda Tarango MD Unavailable [phone] Reason for Visit * Reason Onset Date Comments Meter reads high blood sugar 06/19/2025 Encounter Details Date Type Department Care Team (Late st Contact Info) Description 06/19/2025 Telephone [facility] [address] [place] [address] Courtney Esteban MD [address] [place] [address] [email or web address] Meter reads high blood sugar Social History Tobacco Use Types Packs/Day Years [...] as of this encounter Progress Notes * Courtney Esteban MD - 06/19/2025 10:52 AM EST VNA nurseMarnie called service regarding blood sugar this morning was high on meter. Patient feels fine. He had a lot of cupcakes and junk food last night at a [employer]. He received 13 units of Humalog by sliding scale. He drank several cups of water and he will start using his stationary bike this morning. VNA nurse is coming to his home at 11 AM and will call if any issues. documented in this encounter Plan of Treatment Upcoming Encounters Date Type Department Care Team (Late st Contact Info) Description 09/02/2025 10:00 AM EST Office Visit [facility] [address] [place] [address] Jade Cano MD [address] [place] [address] 12/08/2025 9:20 AM EDT Office Visit [facility] [address] [place] [address] María Jessica PA-C [address] [place] [address] 03/04/2026 11:40 AM EDT Office Visit [facility] [address] [place] [address] Jade Cano MD [address] [place] [address] documented as of this encounter Visit Diagnoses Not on filedocumented in this encounter Care Teams Core Maker Relationship Specialty Start Date End Date Boris Mcgowan MD [address] [place] [address] [address] [place] [phone] PCP - General Internal Medicine 09/20/22 Pineda Tarango MD [address] [place] [address] [address] [place] [address] Nephrology 06/05/25 documented as of this encounter Additional Source Comments The information contained in this document represents components of the legal health record. It is not the complete legal health record.[facility]
--- OUTSIDE RECORDS SUMMARY | 2025-06-23 13:58 | XMS_ITS | Encounter Summary ---
Author Organization [facility] Address [address] [facility] [address] [place] [address] Phone Care Team Providers Care Government Program Manager Name Role Phone Boris Mcgowan MD Primary Care Provider [phone] Pineda Tarango MD Unavailable [phone] Reason for Visit * Reason Onset Date Comments High Sugars at 572 06/22/2025 High Sugars a t 572 Encounter Details Date Type Department Care Team (Late st Contact Info) Description 06/22/2025 Telephone [facility] [address] [place] [address] Jade Cano MD [address] [place] [address] [email or web address] High Sugars at 572 (High Sugars at 572) Social History Tobacco Use Types Packs/Day Years [...] Progress Notes * Stacy Puentes LPN - 06/23/2025 12:04 PM EST Call to patients residential leasing agent Nicole at nursing home left her a message to call us back askfor nursing. Call placed to patients day home health care case manager [facility] Pili RN and she reports patient is not at program today due to weather and she reports yesterday patients mother told her that patient ate a lot of different foods at Thanksgiving dinner that probably contributed to hid blood sugar increases yesterday. * Stacy Puentes LPN - 06/22/2025 3:10 PM EST Call to patients day program [phone] left message for senior java programmer analyst to call us back ask to speak to nursing. Also call to patients nursing home and asked senior java programmer analyst to call us back ask for nursing. * Hyacinth Bates - 06/22/2025 2:00 PM EST Pili, an RN from [employer]. Calls to alert Dr. Cano to dulce's high blood sugar. It was 515 after lunch. Was given 7 units of insulin, increased water intake to 16 oz per hour and exercise. But states that BS is still at 572 now. Call back # is mobile # in chart for Nicole, the [facility] ultrasound manager. [phone] with any medication change instructions. documented in this encounter Plan of Treatment Upcoming Encounters Date Type Department Care Team (Late st Contact Info) Description 09/02/2025 10:00 AM EST Office Visit [facility] [address] [place] [address] Jade Cano MD [address] [place] [address] 12/08/2025 9:20 AM EDT Office Visit [facility] [address] [place] [address] María Jessica PA-C [address] [place] [address] 03/04/2026 11:40 AM EDT Office Visit [facility] [address] [place] [address] Jade Cano MD [address] [place] [address] documented as of this encounter Visit Diagnoses Not on filedocumented in this encounter Care Teams Government Program Manager Relationship Specialty Start Date End Date Boris Mcgowan MD [address] [place] [phone] PCP - General Internal Medicine 09/20/22 Pineda Tarango MD [address] [place] [address] Nephrology 06/05/25 documented as of this encounter Additional Source Comments The information contained in this document represents components of the legal health record. It is not the complete legal health record.[facility]
== END 2025-06-23 12:50 | disposition home or self-care (01) ==
LOC: HO.HMCH 11:46
PROVIDERS: PCP Internal Medicine; Visit Provider Internal Medicine
DX: E10.65 Type 1 diabetes mellitus with hyperglycemia (principal); I12.9 Hypertensive chronic kidney disease with stage 1 through stage 4 chronic kidney disease, or unspecified chronic kidney disease; N18.9 Chronic kidney disease, unspecified; J84.112 Idiopathic pulmonary fibrosis; E78.00 Pure hypercholesterolemia, unspecified; E03.9 Hypothyroidism, unspecified; K21.9 Gastro-esophageal reflux disease without esophagitis; N40.1 Benign prostatic hyperplasia with lower urinary tract symptoms; R35.0 Frequency of micturition

== ENCOUNTER → 2025-06-23 11:45 | Outpatient (BNVA) | payer MEDICARE, MEDICAID, SELFPAY | PROVIDERS: PCP Internal Medicine; Visit Provider Internal Medicine | DX: E10.65 Type 1 diabetes mellitus with hyperglycemia (principal); E78.00 Pure hypercholesterolemia, unspecified; E03.9 Hypothyroidism, unspecified; K21.9 Gastro-esophageal reflux disease without esophagitis; I12.9 Hypertensive chronic kidney disease with stage 1 through stage 4 chronic kidney disease, or unspecified chronic kidney disease; E10.22 Type 1 diabetes mellitus with diabetic chronic kidney disease; N18.9 Chronic kidney disease, unspecified; N40.1 Benign prostatic hyperplasia with lower urinary tract symptoms; R35.0 Frequency of micturition; J84.112 Idiopathic pulmonary fibrosis | CPT/HCPCS: 99212 ==

== ENCOUNTER 2025-07-01 15:09 | Outpatient (REF) | payer MEDICARE, MEDICAID, SELFPAY ==
[2025-07-01 15:24] LABS: MANUAL DIFF FLAG NO
[2025-07-01 15:59] LABS: Hematocrit 33.7 % (42.0-52.0); Hemoglobin 11.2 g/dl (14.0-18.0); Imm Gran Abs Auto 0.03 X10*3/uL (0.00-0.03); Imm Gran Pct Auto 0.5 % (0.0-0.4); Lymphocytes Absolute Auto 1.1 X10*3/uL (1.2-4.9); Mean Corpuscular HGB Conc 33.2 g/dl (31.0-36.0); Mean Corpuscular Hemoglobin 30.1 pg (27.0-33.0); Mean Corpuscular Volume 90.6 fL (80.0-98.0); NRBC Abs Auto 0.000 X10*3/uL (0.0-0.012); NRBC Pct Auto 0.0 /100WBC (0.0-0.2); Platelet Count 398 X10*3/uL (160-400); Red Blood Count 3.72 X10*6/uL (4.60-5.80); Reticulocytes Absolute 0.086 X10*6/uL (0.026-0.095); White Blood Count 6.2 X10*3/uL (4.8-10.8)
[2025-07-01 16:16] LABS: Hemoglobin A1C 149.5615 umol/L
[2025-07-01 16:51] LABS: Alanine Aminotransferase 23 U/L (0-40); Albumin Level 2.5 g/dL (3.5-5.0); Alkaline Phosphatase 106 U/L (39-117); Anion Gap 11 (12-20); Aspartate Amino Transferase 32 U/L (5-37); Blood Urea Nitrogen 47 mg/dL (9-16); Calcium 8.0 mg/dL (8.4-10.2); Carbon Dioxide 22 mmol/L (22-29); Chloride 106 mmol/L (96-108); Cholesterol 186 mg/dL (<200); Estimated Glomerular Filt Rate 25; HDL Cholesterol 40 mg/dL (>40); Iron 44 mcg/dL (45-160); Magnesium 2.0 mg/dL (1.6-2.6); Percent Iron Saturation 28 % (15-50); Potassium 4.7 mmol/L (3.3-5.1); Sodium 134 mmol/L (135-145); Total Iron Binding Capacity 159 mcg/dL (228-428); Total Protein 5.4 g/dL (6.5-8.0); Triglycerides 235 mg/dL (<150); Unsaturated Iron Binding 115 ug/dL
[2025-07-01 16:52] LABS: Ferritin 331 ng/mL (20-250); Free T4 (Free Thyroxine) 0.90 ng/dL (0.71-1.85); Thyroid Stimulating Hormone 3.07 uIU/mL (0.32-4.0)
[2025-07-01 17:30] LABS: Folate 15.5 ng/mL (> or = 4.0); Vitamin B12 454 pg/mL (200-900)
--- OUTSIDE RECORDS SUMMARY | 2025-07-01 23:44 | XMS_ITS | Encounter Summary ---
Author Organization [facility] Address [address] [facility] [address] [place] [address] Phone Care Team Providers Care Mix Crusher Operator Name Role Phone Boris Mcgowan MD Primary Care Provider [phone] Pineda Tarango MD Unavailable [phone] Reason for Visit * Reason Onset Date Comments High Sugars at 572 06/22/2025 High Sugars a t 572 Encounter Details Date Type Department Care Team (Late st Contact Info) Description 06/22/2025 Telephone [facility] [address] [place] [address] Jade Cano MD [address] [place] [address] [email or web address] High Sugars at 572 (High Sugars at [...] Progress Notes * Stacy Puentes LPN - 06/30/2025 12:46 PM EST Duplicate msg * Jade Cano MD - 06/30/2025 11:39 AM EST Please ask them to fast his full log as much easier to see patterns. If no lows between breakfast & lunch recently & all mid day readings are high, they can add1 unit to morning dose. Back to me with full log * Stacy Puentes LPN - 06/30/2025 10:30 AM EST Images from the original note were not included. See sliding scale above from chart 11/2024 Call to [place] v[facility] nurse Corinna and she reports they are doing breakfast sliding scale [- 1 unit each parameter [ex. Less than 70 is 4 units, 70-150 4 units before meal and so on ] [facility] . Lunch and dinner sliding scale confirmed as same above with vna. 06/22/25 BS am fast-197 06/23/25 BS am fast 136 06/24/25 am fast-187 12/ am 314 Before supper-452 before supper -158 before supper-166 256 supper 06/26 fast am-314 06/27/25 BS am fast 126 06/28/25 am fast-86 Before supper-256 12 noon before lunch-548 before supper-284 06/29/25 am fast-181 06/30/25 am fast 150 Before supper reading to high to register [Over 500 pt asymptomatic] [place] v[facility] nurse followed sliding scale for above readings nurse will try to monitor what pt is doing for diet,robert machine group leader reports pt sneaks a lot of snacks high in sugar/carbs,non compliant with diet. * Stacy Puentes LPN - 06/29/2025 5:23 PM EST Call from [facility] vna nurse reporting that she saw patient at 4:30 pm today and his BS reading was highand urine had trace ketones ,vna nurse gave pt 9 units insulin sliding scale at supper time. Tried to call vna nurse x 2 line busy * Stacy Puentes LPN - 06/29/2025 3:46 PM EST Call to pts senior sas programmer at intermediate ,[facility] to call us back * Ann Garner - 06/29/2025 2:03 PM EST [email or web address] called to inform Dr. Pickett that the patient???s blood sugar has been consistently high at lunchtime (11:30 AM). The patient increased their water intake, but a repeat check two hours later was still high. Please contact and advise. CB: [phone] (open until 3 PM). Central Support [employer]'S Assistant (Please do not reply to this user; this inbox is not monitored.) Thank you. * Stacy Puentes LPN - 06/25/2025 3:06 PM EST Call to patients senior sas programmer at intermediate Nicole and she reports pts blood sugars are muchbetter 80 in am fasting and between 120-200 all other times and she reports pt has antoni 3 now . Nicole will call back if any changes/concerns * Stacy Puentes LPN - 06/23/2025 12:04 PM EST Call to patients residential recycle driver Nicole at intermediate left her a message to call us back askfor nursing. Call placed to patients day youth care worker [facility] Pili RN and she reports patient is not at program today due to weather and she reports yesterday patients mother told her that patient ate a lot of different foods at Thanksgiving dinner that probably contributed to hid blood sugar increases yesterday. * Stacy Puentes LPN - 06/22/2025 3:10 PM EST Call to patients day program [phone] left message for senior sas programmer to call us back ask to speak to nursing. Also call to patients intermediate and asked senior sas programmer to call us back ask for nursing. * Hyacinth Bates - 06/22/2025 2:00 PM EST Pili, an RN from [employer]. Calls to alert Dr. Cano to patienbt's high blood sugar. It was 515 after lunch. Was given 7 units of insulin, increased water intake to 16 oz per hour and exercise. But states that BS is still at 572 now. Call back # is mobile # in chart for Nicole, the [facility] branch operation evaluation manager. [phone] with any medication change instructions. documented in this encounter Plan of Treatment Upcoming Encounters Date Type Department Care Team (Late st Contact Info) Description 09/02/2025 10:00 AM EST Office Visit [facility] [address] [place] [address] [place] [address] Jade Cano MD [address] [address] 12/08/2025 9:20 AM EDT Office Visit [facility] [address] [place] [address] María Jessica PA-C 22 [place] [address] 03/04/2026 11:40 AM EDT Office Visit [facility] [address] [place] [address] Jade Cano MD [address] [place] [address] documented as of this encounter Visit Diagnoses Not on filedocumented in this encounter Care Teams Mix Crusher Operator Relationship Specialty Start Date End Date Boris Mcgowan MD [address] [place] [address] Drive [address] [place] [phone] PCP - General Internal Medicine 09/20/22 Pineda Tarango MD [address] [place] [address] Nephrology 06/05/25 documented as of this encounter Additional Source Comments The information contained in this document represents components of the legal health record. It is not the complete legal health record.[facility]
--- OUTSIDE RECORDS SUMMARY | 2025-07-01 23:44 | XMS_ITS | Encounter Summary ---
Author Organization [facility] Address [address] [employer] [facility] [address] [place] [address] Phone Care Team Providers Care Driver'S Education Instructor Name Role Phone Boris Mcgowan MD Primary Care Provider [phone] Pineda Tarango MD Unavailable [phone] Encounter Details Date Type Department Care Team (Late st Contact Info) Description 06/27/2025 Telephone [employer] [facility] [address] [place] [address] Stacie Rios MD [address] [facility], 1st [place] [address] [email or web address] Social History Tobacco Use Types Packs/Day Years [...] as of this encounter Progress Notes * Stacie Rios MD - 06/27/2025 8:38 PM EST Call from ZENOBIA Maharaj, regarding high glucose, call was prior to lunch Glucose reading was 584 Bernard received correction dose of Humalog according to SSI, 7u Carol Ann reports that Bernard is asymptomatic Nurse reported that Bernard had cereal for breakfast which commonly causes spikes documented in this encounter Plan of Treatment Upcoming Encounters Date Type Department Care Team (Late st Contact Info) Description 09/02/2025 10:00 AM EST Office Visit [facility] [address] [place] [address] [place] [address] Jade Cano MD [address] [place] [address] 12/08/2025 9:20 AM EDT Office Visit [facility] [address] [place] [address] [place] [address] María Jessica PA-C [address] [place] [address] 03/04/2026 11:40 AM EDT Office Visit [facility] [address] [place] [address] Jade Cano MD [address] [place] [address] documented as of this encounter Visit Diagnoses Not on filedocumented in this encounter Care Teams Driver'S Education Instructor Relationship Specialty Start Date End Date Boris Mcgowan MD [address] [place] [phone] PCP - General Internal Medicine 09/20/22 Pineda Tarango MD [address] [place] [address] [address] [place], [place] [address] Nephrology 06/05/25 documented as of this encounter Additional Source Comments The information contained in this document represents components of the legal health record. It is not the complete legal health record.[facility]
--- OUTSIDE RECORDS SUMMARY | 2025-07-01 23:44 | XMS_ITS | Data Portability ---
Author Organization [place] [facility] Address [address] [place] [phone] Care Team Providers Care Blending Operator Name Role Phone NATANAEL CORDOVA Primary Care Provider Assessment Encounter Date Assessment Date Assessment LastModified by Organization Details LastModified Time 05/18/2020 05/18/2020 Overview/Histo ry: This is a 39-year-old male, new to [facility], phone calls with complaints of testicular/pen is pain. Patient resides in a longterm. This past medical history includes hypertension, high [...] No suprapubic tenderness noted. Genital exam-performed with receptionist doctor's office as listed in physical exam notes. No [...] pain Time On Scene with Patient: 00:15:28 [email or web address] Not available 05/18/2020 17:53:51 Plan of Treatment Reminders Order Date Submit Date Provider Last Modified By Organization Details Last Modified Time Details Appointments None recorded. Lab urinalysis, dipstick 2019 [email or web address] [facility], [address] [place] [address], [phone], 0 17:56:19 culture, urine - Collected by [facility] 2019 LAUREN [facility] (Centralized Electronic Ordering - All Locations), Patient Can Go To The Location Of Their Choice, [id number] 0 21:04:00 Referral None recorded. Procedures None [...] Go To The Location Of Their Choice, [address] 05/19/2020 21:04:00 05/18/20 20 05/19/2020 cultu re, urine report status FINAL 2019 Not Available [facility] (Centralized Electronic Ordering - All Locations) Patient Can Go To The Location Of Their Choice, [address] 05/19/2020 21:04:00 05/18/2005/18/2020 urina lysis , dipst ick Appearance clear Not Available [facility] [address] [place], [address], 05/18/2020 17:54:49 05/18/2005/18/2020 urina lysis , dipst ick Color yellow Not Available [facility] [address] [place], [address], 05/18/2020 17:54:49 05/18/2005/18/2020 urina lysis , dipst ick Glucose positi ve Not Available [facility] [address] [place], [address], 05/18/2020 17:54:49 05/18/2005/18/2020 urina lysis , dipst ick Bilirubin negati ve Not Available [facility] [address] [place], [address], 05/18/2020 17:54:49 05/18/2005/18/2020 urina lysis , dipst ick Ketones NEG Not Available [facility] [address] [place], [address], 05/18/2020 17:54:49 05/18/2005/18/2020 urina lysis , dipst ick [place] [place] 1.020 Not Available [facility] [address] [place], [address], 05/18/2020 17:54:49 05/18/2005/18/2020 urina lysis , dipst ick Blood NEG Not Available [facility] [address] [place], [address], 05/18/2020 17:54:49 05/18/20 20 05/18/2020 urina lysis , dipst ick pH 5.0 Not Available [facility] [address] [place], [address], 05/18/2020 17:54:49 05/18/2005/18/2020 urina lysis , dipst ick Protein positi ve Not Available [facility] [address] [place], [address], 05/18/2020 17:54:49 05/18/2005/18/2020 urina lysis , dipst ick Urobilirubin negati ve Not Available [facility] [address] [place], [address], 05/18/2020 17:54:49 05/18/20 20 05/18/2020 urina lysis , dipst ick Nitrites NEG Not Available [facility] [address] [place], [address], 05/18/2020 17:54:49 05/18/20 20 05/18/2020 urina lysis , dipst ick Leukocytes NEG Not Available [facility] [address] [place], [address], 05/18/2020 17:54:49 Result Notes None recorded. Medical Equipment None Reported. Allergies Allergen ID Allergen Name Allergen Category Reaction Reaction Severity Criticality Documentation Date Start Date Code Code System Note Provider Name and Address Organization Details Recorded Time 724918 Substance with sulfonami de structure and antibacte rial mechanism of action (substanc e) medicatio n Not available Not available Not available 05/18/2020 34740 8003 SNOMED FREDO SCOTT NP [address] [place], [address], [place] [facility] 0 17:40:39 Medications Name Sig Start Date Stop Date Status Note LastModified by Organization Details LastModified Time ultra-care alcohol prep pads 70 % pads active Not Available Not Available No t Available ultracare pen needles/32g x 1/14 32g x 6 mm misc active Not Available Not Available Not Available benefiber pow grams TAKE 1 TABLESPOO N EVERY MORNING IN HOT CHOCOLATE OR DRINK OF CHOICE active Not Available Not Available No t Available ipratropium 0.5 mg-albutero l 3 mg [...] ICD10 Code Diagnosis IMO Codes Diagnosis Note [id number] FREDO SCOTT NP [facility] [address] [place], [place] [address]RI [address] 05/18/2020 17:20:56 05/19/2020 14:17:14 Pain in penis [id number] N48.89 Health Concerns Section Related Observation LastModified by Organization Detai ls LastModified Time None Recorded Concern Status LastModified by Organization Details LastModified Time None Recorded Advance Directives Directive None Recorded Payers Insurance Date Sequence Insurance Name Policy Number Policy Celeste Covered Member ID Celeste Member ID Guarantor Name 05/18/2020 1 *SELF PAY* Bernard Navarro [id number] Bernard Navarro 05/18/2020 2 [place] [facility] Bernard Navarro [id number] Bernard Navarro 05/18/2020 1 MEDICARE B-[place] [facility] Bernard Navarro [id number] Bernard Navarro 05/19/2020 1 [place]IC[place] [employer] Bernard Navarro [id number] Bernard Navarro Notes Date Note Type Note Provider Name and Address Organization Details Recorded Time 05/18/2020 text/html This is a 39-year-old male, new to [employer], who is a staff members call with concerns for testicular pain. This patient resides in a longterm setting. His past medical history includes hypertension, [...] was today. FREDO SCOTT NP [address] [place], [address], [place] [facility] 05/18/2020 17:56:38
--- OUTSIDE RECORDS SUMMARY | 2025-07-01 23:44 | XMS_ITS | Encounter Summary ---
Author Organization [facility] Address [address] [facility] [address] [place] [address] Phone Care Team Providers Care Clothing Examiner Name Role Phone Boris Mcgowan MD Primary Care Provider [phone] Pineda Tarango MD Unavailable [phone] Reason for Visit * Reason Onset Date Comments Tracheostomy Tube Check 03/30/2025 Re: bloo d sugars Encounter Details Date Type Department Care Team (Late st Contact Info) Description 03/30/2025 Telephone [facility] [address] [place] [address] María Jessica PA-C [address] [place] [address] [email or web address] Tracheostomy Tube Check [...] you. Will do. She will also let [employer] know also that there will be no [...] 1:16 PM EDT I called Nicole Stout, group insurance special agent and she informed me when pt arrived [...] PM EDT Please check in with the group insurance special agent make sure Bernard is doing okay and his glucose levels arebetter with dinner thanks * Arcelia Roberts - 03/30/2025 1:48 PM EDT Pili the nurse from [facility] patients day program called and was [...] AM EST Office Visit [facility] [address] [place] [address] Jade Cano MD [address] [place] [address] 12/08/2025 9:20 AM EDT Office Visit [facility] [address] [place] [address] María Jessica PA-C [address] [place] [address] 03/04/2026 11:40 AM EDT Office Visit [facility] [address] [place] [address] Jade Cano MD [address] [place] [address] [email or web address] documented as of this encounter Visit Diagnoses Not on filedocumented in this encounter Care Teams Clothing Examiner Relationship Specialty Start Date End Date Boris Mcgowan MD [address] [place] [address] Drive [address] [place] [address] PCP - General Internal Medicine 09/20/22 Pineda Tarango MD [address] [place] [address] [place] [address] Nephrology 06/05/25 documented as of this encounter Additional Source Comments The information contained in this document represents components of the legal health record. It is not the complete legal health record.[facility]
--- OUTSIDE RECORDS SUMMARY | 2025-07-01 23:44 | XMS_ITS | Clinical Summary ---
Author Organization [facility] Address [address] [place] [address] Phone Care Team Providers Care Account Liaison Hospice Name Role Phone Boris Mcgowan MD Primary Care Provider [phone] Pineda Tarango MD Unavailable [phone] Allergies Active Allergy Reactions Criticality Noted Date [...] Active ferrous sulfate 325 mg (65 mg upper mattaponi iron) EC tablet Take 325 mg by [...] Problem Noted Date Diagnosed Date Resolved Date snf (current) use of insulin 10/19/2022 04/24/2023 Encounters Date Type Department Care Team Description 06/27/2025 Telephone [facility] [address] [place] [address] [place] [address] Stacie Rios MD 06/22/2025 Telephone [facility] Endocrinology [address] [place] [address] [place] [address] Jade Cano MD High Sugars at 572 (High Sugars at 572) 06/19/2025 Telephone [facility] Endocrinology [address] [place] [address] [place] [address] Courtney Esteban MD Meter reads high blood sugar 06/13/2025 Telephone [facility] Endocrinology [address] [place] [address] [place] [address] Yarelis Theodore, SWORD SWALLOWER Hyperglycemia 06/10/2025 Telephone [facility] Endocrinology [address] [place] [address] [place] [address] Jade Cano MD ELEVATED BLOOD GLUCOSE LEVEL 06/08/2025 Telephone [facility] Endocrinology [address] [place] [phone] Jade Cano MD 06/04/2025 11:40 AM EST Office Visit [facility] Endocrinology [address] [place] [address] [place] [address] Jade Cano MD 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); Acquired hypothyroidism; 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; Type 1 diabetes mellitus with peripheral neuropathy; Type 1 diabetes mellitus with retinopathy, macular edema presence unspecified, unspecified laterality, unspecified retinopathy severity 06/02/2025 Refill [facility] [address] [place] [address] Luana Wild MA Medication Refill 06/01/2025 Telephone [facility] [address] [place] [address] Jade Cano MD 06/01/2025 Telephone [facility] Endocrinology [address] [place] [address] Jade Cano MD Reporting High Sugars 05/16/2025 Orders Only [facility] [address] [place] [address] [place] [address] Yarelis Theodore CNP 05/13/2025 Telephone [facility] Rheumatology [address] [place] [address] [place] [address] Jade Cano MD VNA Update 05/03/2025 Telephone [facility] Endocrinology [address] [place] [address] [place] [address] Courtney Esteban MD High blood sugars 04/11/2025 Telephone [facility] Endocrinology [address] [place] [address] Yarelis Theodore CNP Hyperglycemia from Last 3 Months Social History Tobacco [...] AM EST Office Visit [facility] [address] [place] [address] Jade Cano MD [address] [place] [address] [email or web address] 12/08/2025 9:20 AM EDT Office Visit [facility] [address] [place] [address] María Jessica PA-C [address] [place] [address] 03/04/2026 11:40 AM EDT Office Visit [facility] [address] [place] [address] Jade Cano MD [address] [place] [address] Health Maintenance Due Date Last Done Comments [...] - 5.00 uIU/mL 06/04/2025 7:40 PM EST [facility] Blood (Blood) Venipuncture / Unknown 06/04/2025 1:32 PM EST 06/04/2025 1:32 PM EST us Jade Cano MD LAB BLOOD BKR ORDERABL ES Final Result Performing Organization Address [facility]/ZIP Co de Phone Number [address] [address] * Alanine Aminotransferase (ALT) (06/04/2025 1:32 PM EST) ALT 14 <50 U/L 06/04/2025 7:4 0 PM EST [facility] Blood (Blood) Venipuncture / Unknown 06/04/2025 1:32 PM EST 06/04/2025 1:32 PM EST Result Girish Cano MD LAB BLOOD BKR ORDERABL ES Final Result Performing Organization Address [facility]/ZIP Co de Phone Number [address] [address] * Aspartate Aminotransferase (AST) (06/04/2025 1:32 PM EST) AST 18 <40 U/L 06/04/2025 7:4 0 PM EST [facility] Blood (Blood) Venipuncture / Unknown 06/04/2025 1:32 PM EST 06/04/2025 1:32 PM EST us Jade Cano MD LAB BLOOD BKR ORDERABL ES Final Result Performing Organization Address [facility]/ZIP Co de Phone Number [address] [address] * (ABNORMAL) Hemoglobin A1c (06/04/2025 1:32 PM EST) Hemoglobin A1c 9.1(H) 4.3 - 5.6 % 06/04/2025 9:39 PM EST [facility] Calculated Mean Blood Glucose 214 mg/dL 06/04/2025 9:39 PM [facility] Comment:There is no [facility] normal range for the Estimated Average [...] LAB BLOOD BKR ORDERABL ES Final Result [address] [address] * (ABNORMAL) Basic Metabolic Panel (BMP) (06/04/2025 1:32 PM EST) Sodium 131(L) 136 - 145 mmol/L 06/04/2025 7:40 PM [facility] Potassium 5.6(H) 3.4 - 5.1 mmol/L 06/04/2025 7:40 PM [facility] Chloride 102 98 - 107 mmol/L 06/04/2025 7:40 PM [facility] CO2 20 20 - 31 mmol/L 06/04/2025 7:40 PM [facility] Anion Gap 9 3 - 17 mmol/L 06/04/2025 7:40 PM [facility] BUN 44(H) 6 - 23 mg/dL 06/04/2025 7:40 PM [facility] Creatinine 2.30(H) 0.60 - 1.30 mg/dL 06/04/2025 7:40 PM [facility] eGFR 35(L) >59 mL/min/1.7 3m2 06/04/2025 7:40 PM [facility] Comment:Estimated glomerular filtration rate calculated using the CKD-EPI refit equation. Glucose 177(H) 70 - 99 mg/dL 06/04/2025 7:40 PM [facility] Calcium 8.3(L) 8.5 - 10.5 mg/dL 06/04/2025 7:40 PM EST [facility] Blood (Blood) Venipuncture / Unknown 06/04/2025 1:32 PM EST 06/04/2025 1:32 PM EST Jade Cano MD LAB BLOOD BKR ORDERABL ES Final Result [facility] [address] [place] [address] from Last 3 Months Insurance [employer]IC[employer] PART A & B [employer] MEDICARE PART A & B [place] & B Care Teams Account Liaison Hospice Relationship Specialty Start Date End Date Boris Mcgowan MD [address] [place] [address] Drive [address] [place] [phone] PCP - General Internal Medicine 09/20/22 Pineda Tarango MD [address] [place] [address] [place] [address] Nephrology 06/05/25 Additional Source Comments The information contained in this document represents components of the legal health record. It is not the complete legal health record.[facility]
== END 2025-07-01 15:10 | disposition home or self-care (01) ==
LOC: HO.LAB 15:09
PROVIDERS: PCP Internal Medicine; Visit Provider Internal Medicine Hypertension Specialist
DX: E11.65 Type 2 diabetes mellitus with hyperglycemia (principal); E78.00 Pure hypercholesterolemia, unspecified; E03.9 Hypothyroidism, unspecified
CPT/HCPCS: 36415; 80053; 80061; 82043; 82570; 82607; 82728; 82746; 83036; 83540; 83735; 84439; 84443; 85025; 85045

== ENCOUNTER 2025-07-02 13:18 | Outpatient (AMB) | payer MEDICARE, MEDICAID, SELFPAY ==
--- NOTE | 2025-07-02 13:20 | HO.NEPHOV_ITS ---
Vital Signs 07/02/25 13:21 Height 4 ft 9 in Weight 130 lb BMI 28.1 BP 138/64 Blood Pressure Location Lt brachial Position Sitting Pulse 72 Pulse Source Pulse Oximeter Pulse Oximetry (%) 98 Oxygen Delivery Method Room Air Intake Visit Reasons: Dec f/u w/labs Sanitor Required: No Accompanied by: Direct Care Allergies Sulfa (Sulfonamide Antibiotics) (SULFA(SULFONAMIDE ANTIBIOTICS)) Allergy (Intermediate, Verified 07/02/25 13:22) ITCHING doxycycline Adverse Reaction (Intermediate, Verified 07/02/25 13:22) Pancreatitis Medication List - Last Reconciled 07/02/25 by Pineda Tarango MD acetaminophen (Tylenol) 650 mg (2 x 325 mg) PO Q6H PRN albuterol sulfate 90 mcg/actuation (Ventolin HFA) 2 puffs inhalation Q4-6H PRN amlodipine 5 mg PO DAILY ascorbic acid (vitamin C) (Vitamin C) 500 mg PO DAILY aspirin 81 mg PO DAILY atorvastatin (Lipitor) 10 mg PO DAILY azithromycin mg PO bisacodyl (Dulcolax (bisacodyl)) 10 mg (2 x 5 mg) PO BEDTIME blood sugar diagnostic (FreeStyle Lite Strips) As directed cetirizine 10 mg PO DAILY cholecalciferol (vitamin D3) (Vitamin D3) 50 mcg (2 x 25 mcg (1,000 unit)) PO DAILY 30 days ciclopirox 0.77% 1 appl topical BID citalopram 20 mg PO DAILY diclofenac sodium 1% 4 grams topical Q6H PRN docusate sodium 200 mg (2 x 100 mg) PO BEDTIME famotidine (Pepcid) 20 mg PO BEDTIME ferrous sulfate 325 mg PO DAILY@1600 folic acid 0.8 mg PO DAILY glucose 16 grams PO Q15M PRN insulin glargine (Lantus Solostar U-100 Insulin) 13 units subcut DAILY@1700 insulin lispro (Humalog KwikPen (U-100) Insulin) 1 sliding scale dose See Prot ocol subcut TIDAC ipratropium-albuterol 0.5 mg-3 mg(2.5 mg base)/3 mL 3 mL inhalation BID 30 days isoniazid 300 mg PO DAILY 5 days levothyroxine 112 mcg PO DAILY@0600 ikbgdh-tmdtkxhp-tmnebyf (pork) 24,000-76,000 -120,000 unit (Creon) 2 caps PO QID lorazepam 0.5 mg orally 1-2 tabs prn 1 hour before the procedure PRN; metoprolol succinate ER 25 mg See Protocol PO BEDTIME nystatin 1 appl topical BID PRN omeprazole 20 mg PO DAILY@0630 ondansetron 4 mg PO Q8H PRN peg 400-propylene glycol (PF) 0.4-0.3 % (Systane (PF)) 1 drp ophthalmic (eye) QID PRN pen needle, diabetic (Comfort EZ Pen [place]) As directed pen needle, diabetic As directed pen needle, diabetic, safety (True Comfort Safety Pen Needle) As directed polyethylene glycol 3350 (Miralax) 17 grams PO DAILY simethicone 125 mg PO BID-QID PRN sodium zirconium cyclosilicate (Lokelma) 5 grams PO MOWEFR tamsulosin 0.8 mg (2 x 0.4 mg) PO DAILY@1700 90 days zinc oxide-cod liver oil 40 % (Desitin) 1 appl topical DAILY HPI Comments Details: History of Present Illness The patient is a 44 year old male presenting with a follow-up for type 1 diabetes mellitus and chronic kidney disease. His serum creatinine has increased from 1.7 mg/dL in October to a current value of 2.81 mg/dL, indicating worsening kidney function. 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 He also has a history of hyperkalemia while on ADRIANA inhibitors. The patient's blood sugar control is reportedly poor, with fluctuations from high to low levels. He denies any current trouble with urination or abdominal pain, though a sanitarian inspector mentioned he sometimes complains of pain and avoids urination. He reports eating well. Results - Labs: Serum creatinine was 1.7 mg/dL in October and has increased to 2.81 mg/dL. [facility] Medical History Renal insufficiency Renal insufficiency Cellulitis Constipation Ascites Pericardial effusion Urethral meatal stenosis Mental and behavioral problem Hypercholesterolemia Down syndrome GERD (gastroesophageal reflux disease) BPH (benign prostatic hyperplasia) Hypothyroid Anxiety and depression Pseudoseizures Diabetes mellitus type 1 Surgical History Hx of cataract surgery Family History Father Medical history unknown Mother Medical history unknown Maternal Grandfather Prostate cancer Social History Household Members: Other Household Members Other:: fpc Housing: Other Housing Other:: fpc Do you presently have visiting nurse or other home services: No Alcohol intake: never Comment: 1:1 Sitter Patient Tobacco Use Status: Never used Tobacco Tobacco use type: Cigarette e-Cigarette/Vaping Use: Never Used Second Hand Smoke Exposure: No service: No Current occupational status: disabled Cognitive needs: No Hearing needs: No Vision needs: No Physical Exam Exam Exam: Physical Exam General: Awake. Comfortable. HENT: Neck supple. Mucosa moist. Pain on neck pressure. Pulmonary: Lungs aeration equal. No rales. Cardiology: Heart S1-S2 heard. No gallop. Abdomen: Soft. Non tender. Bowel sounds normal. Neurologic: No involuntary movements. No myoclonus. Extremities: No edema. No rash. Vital Signs: Last Vital Signs Pulse 72 07/02/25 13:21 BP 138/64 07/02/25 13:21 Pulse Ox 98 07/02/25 13:21 Oxygen Delivery Method Room Air 07/02/25 13:21 BMI result Body Mass Index 28.1 Results Reviewed Nephrology Results: Hgb, (14.0-18.0) 11.2 g/dl L 07/01/25 WBC, (4.8-10.8) 6.2 X10*3/uL 07/01/25 Plt Count, (160-400) 398 X10*3/uL 07/01/25 Sodium, (135-145) 134 mmol/L L 07/01/25 Potassium, (3.3-5.1) 4.7 mmol/L 07/01/25 Chloride, (96-108) 106 mmol/L 07/01/25 Carbon Dioxide, (22-29) 22 mmol/L 07/01/25 BUN, (9-16) 47 mg/dL H 07/01/25 Creatinine, (0.5-1.4) 2.81 mg/dL H 07/01/25 Calcium, (8.4-10.2) 8.0 mg/dL L 07/01/25 Urine Creatinine 29.53 mg/dL 07/01/25 Renal US 01/02/24 Assessment & Plan Assessment & Plan (1) Hyperkalemia: Code(s): E87.5 - Hyperkalemia Category: Medical (2) CKD (chronic kidney disease): Code(s): N18.9 - Chronic kidney disease, unspecified Category: Medical (3) JOSE (acute kidney injury): Code(s): N17.9 - Acute kidney failure, unspecified Category: Medical Plan Plan 1. Chronic Kidney Disease CKD is probably due to diabetic kidney disease. Nephrotic range proteinria Superimposed JOSE - The patient's kidney function has declined, with creatinine increasing from 1.7 to 2.81 mg/dL. - An urgent kidney ultrasound will be ordered to assess for any blockage in urine flow as a potential cause for the worsening function. - The patient will follow up in one month, by which time the ultrasound should be completed. 2. Type 1 Diabetes Mellitus - The patient's blood glucose is reportedly poorly controlled, with significant fluctuations between high and low levels. - The importance of maintaining good blood sugar control was emphasized. 3. Hyperkalemia is due to decreased potassium excretion in the setting of CKD. Needs to stay on low-potassium diet Keep Lokelma 5 g to be taken 3 times a week. Unable to add Lisinopril due to High K Follow potassium Orders: Orders US renal BI Today N17.9 - Acute kidney failure, unspecified Basic Metabolic Panel 4 Weeks N17.9 - Acute kidney failure, unspecified, N18.9 - Chronic kidney disease, unspecified Coding Level of Care Code Est Pt Level 4 (88305) Diagnoses Hyperkalemia E87.5 CKD (chronic kidney disease) N18.9 JOSE (acute kidney injury) N17.9
[2025-07-02 13:21] VITALS: BP 138/64; PULSE 72; O2SAT 98; BMI 28.1
== END 2025-07-02 13:37 | disposition home or self-care (01) ==
LOC: HO.HKA 13:19
PROVIDERS: PCP Internal Medicine; Visit Provider Internal Medicine Hypertension Specialist
DX: E87.5 Hyperkalemia (principal); N18.9 Chronic kidney disease, unspecified; N17.9 Acute kidney failure, unspecified
CPT/HCPCS: 99214

== ENCOUNTER → 2025-07-02 13:18 | Outpatient (BNVA) | payer MEDICARE, MEDICAID, SELFPAY | PROVIDERS: PCP Internal Medicine; Visit Provider Internal Medicine Hypertension Specialist | DX: E10.9 Type 1 diabetes mellitus without complications (principal); N18.9 Chronic kidney disease, unspecified; N17.9 Acute kidney failure, unspecified; E87.5 Hyperkalemia | CPT/HCPCS: 99212 ==

== ENCOUNTER 2025-07-03 15:00 | Outpatient (REF) | payer MEDICARE, MEDICAID, SELFPAY ==
--- NOTE | ~2025-07-03 | US_ITS ---
EXAMINATION: US RETROPERITONEAL LIMITED (RENAL ONLY) CLINICAL INFORMATION: Acute kidney failure, unspecified.. COMPARISON: 01/02/2024. TECHNIQUE: Real-time imaging of the kidneys. FINDINGS: RIGHT KIDNEY: 9.4 x 4.7 x 4.4 cm (SAG x AP x TRV). The kidney is normal in size, contour, and echogenicity. Renal cortical thickness is normal. No calculi or suspicious focal parenchymal lesions. No hydronephrosis. Upper pole mildly exophytic simple cyst measuring 0.9 x 1.0 x 1.0 cm. LEFT KIDNEY: 10.0 x 4.8 x 4.1 cm (SAG x AP x TRV). The kidney is normal in size, contour, and echogenicity. Renal cortical thickness is normal. No calculi or focal parenchymal lesions. No hydronephrosis. US/US renal BI IMPRESSION: Aside from a 1.0 cm right upper pole simple cyst, normal ultrasound of the kidneys. Electronically signed by: Juan Wood MD 07/03/2025 03:43 PM [facility]
--- OUTSIDE RECORDS SUMMARY | 2025-07-03 20:04 | XMS_ITS | Encounter Summary ---
Author Organization [facility] Address [address] [facility] [address] [place] [address] Phone Care Team Providers Care Embedded Engineer Name Role Phone Boris Mcgowan MD Primary Care Provider [phone] Pineda Tarango MD Unavailable [phone] Encounter Details Date Type Department Care Team (Late st Contact Info) Description 06/27/2025 Telephone Activation [facility] [address] [place] [address] Stacie Rios MD [address] [facility], 1st [place] [address] [email or web address] Social History Tobacco Use Types Packs/Day Years [...] AM EST Office Visit [facility] [address] [place] [address] [place] [address] Jade Cano MD [address] [place] [address] 12/08/2025 9:20 AM EDT Office Visit [facility] [address] [place] [address] [place] [address] María Jessica PA-C [address] [place] [address] 03/04/2026 11:40 AM EDT Office Visit [facility] [address] [place] [address] Jade Cano MD [address] [place] [address] documented as of this encounter Visit Diagnoses Not on filedocumented in this encounter Care Teams Embedded Engineer Relationship Specialty Start Date End Date Boris Mcgowan MD [address] [place] [phone] PCP - General Internal Medicine 09/20/22 Pineda Tarango MD [address] [place] [address] [address] [place] [address] Nephrology 06/05/25 documented as of this encounter Additional Source Comments The information contained in this document represents components of the legal health record. It is not the complete legal health record.[facility]
--- OUTSIDE RECORDS SUMMARY | 2025-07-03 20:04 | XMS_ITS | Clinical Summary ---
Author Organization [facility] Address [address] [place] [address] Phone Care Team Providers Care Fuel Cell Systems Engineer Name Role Phone Boris Mcgowan MD Primary Care Provider [phone] Pineda Tarango MD Unavailable [phone] Allergies Active Allergy Reactions Criticality Noted Date [...] Active ferrous sulfate 325 mg (65 mg ekuk iron) EC tablet Take 325 mg by [...] subcutaneously, tid AC 15 mL 5 06/02/20 Active insulin glargine (LANTUS SOLOSTAR U-100 INSULIN) 100 unit/mL (3 mL) InPn injection penIndications: Type 1 diabetes mellitus with nephropathy 14 units, or as directed, plus 2 units to prime needle with each dose 15 mL 5 06/02/20 Active alcohol PadM Apply topically 4 (four) times a day. 400 each 3 06/02/20 Active atorvastatin (LIPITOR) 10 MG tablet Take 10 mg by mouth daily. 05/26/20 Active PURE COMFORT SAFETY LANCETS 30 gauge MiscIndications :Type 1 diabetes mellitus with nephropathy Inject 1 each under the skin 4 (four) times a day before meals and nightly. 200 each 11 06/04/20 25 Active PURE COMFORT SAFETY LANCETS 30 gauge MiscIndications :Type 1 diabetes mellitus with nephropathy Inject 1 each under the skin 4 (four) times a day before meals and nightly. 200 each 11 05/30/20 24 025 Discontin ued(Reord er) Active Problems Problem [...] 1 diabetes mellitus 10/19/2022 Overview (10/19/2022): Dexcom selinier Taylor Becerril Assessment & Plan (06/08/2025 5:54 [...] his glucose levels. Up to date with [facility]. Sees podiatry. 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) use of insulin 10/19/2022 04/24/2023 Encounters Date Type Department Care Team Description 06/27/2025 Telephone [facility] [address] [place] [address] [place] [address] Stacie Rios MD 06/22/2025 Telephone [facility] Endocrinology [address] [place] [address] Jade Cano MD High Sugars at 572 (High Sugars at 572) 06/19/2025 Telephone [facility] Endocrinology [address] [place] [address] [place] [address] Courtney Esteban MD Meter reads high blood sugar 06/13/2025 Telephone [facility] Endocrinology [address] [place] [address] [place] [address] Yarelis Theodore, MARKETING RESEARCH COORDINATOR Hyperglycemia 06/10/2025 Telephone [facility] Endocrinology [address] [place] [address] [place] [address] Jade Cano MD ELEVATED BLOOD GLUCOSE LEVEL 06/08/2025 Telephone [facility] [address] [facility] [place] [phone] Jade Cano MD 06/04/2025 11:40 AM EST Office Visit [facility] [address] [place] [address] [place] [address] Jade Cano MD 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); Acquired hypothyroidism; 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; Type 1 diabetes mellitus with peripheral neuropathy; Type 1 diabetes mellitus with retinopathy, macular edema presence unspecified, unspecified laterality, unspecified retinopathy severity 06/02/2025 Refill [facility] Endocrinology [address] [place] [address] [place] [address] Luana Wild Cele [place] Medication Refill 06/01/2025 Telephone [facility] Endocrinology [address] [place] [address] [place] [address] Jade Cano MD 06/01/2025 Telephone [facility] Endocrinology [address] [place] [address] [place] [address] Jade Cano MD Reporting High Sugars 05/16/2025 Orders Only [facility] [address] [place] [address] [place] [address] Yarelis Theodore, MARKETING RESEARCH COORDINATOR 05/13/2025 Telephone [facility] [address] [place] [address] [place] [address] Jade Cano MD VNA Update 05/03/2025 Telephone [facility] [address] [place] [address] Courtney Esteban MD High blood sugars 04/11/2025 Telephone [facility] [address] [place] [address] Yarelis Theodore, FADUMO Hyperglycemia from Last 3 Months Social History [...] AM EST Office Visit [facility] [address] [place] [address] Jade Cano MD [address] [place] [address] 12/08/2025 9:20 AM EDT Office Visit [facility] [address] [place] [address] María Jessica PA-C [address] [place] [address] 03/04/2026 11:40 AM EDT Office Visit [facility] [address] [place] [address] Jade Cano MD [address] [place] [address] Health Maintenance Due Date Last Done Comments Adult Td,Tdap Booster 1980 DEPRESSION SCREENING 1992 HEPATITIS C SCREENING 1998 HIV ONE-TIME SCREENING (18-65 YEARS) 1998 PNEUMOCOCCAL VACCINES (0-49 years) (1 of 2 - PCV) 11/25/1999 DIABETIC EYE EXAM 10/19/2022 INFLUENZA VACCINE (#1) 2025 COVID-19 VACCINE (1 - 2024- season) 2025 HEMOGLOBIN A1C 09/04/2025 [...] - 5.00 uIU/mL 06/04/2025 7:40 PM EST [facility] Blood (Blood) Venipuncture / Unknown 06/04/2025 1:32 PM EST 06/04/2025 1:32 PM EST Jade Cano MD LAB BLOOD BKR ORDERABL ES Final Result Performing Organization Address [facility]/ZIP Co de Phone Number [address] [address] * Alanine Aminotransferase (ALT) (06/04/2025 1:32 PM EST) ALT 14 <50 U/L 06/04/2025 7:4 0 PM EST [facility] Blood (Blood) Venipuncture / Unknown 06/04/2025 1:32 PM EST 06/04/2025 1:32 PM EST Jade Cano MD LAB BLOOD BKR ORDERABL ES Final Result [address] [address] * Aspartate Aminotransferase (AST) (06/04/2025 1:32 PM EST) AST 18 <40 U/L 06/04/2025 7:4 0 PM [facility] Blood (Blood) Venipuncture / Unknown 06/04/2025 1:32 PM EST 06/04/2025 1:32 PM EST Jade Cano MD LAB BLOOD BKR ORDERABL ES Final Result Performing Organization Address [facility] Phone Number [address] [address] * (ABNORMAL) Hemoglobin A1c (06/04/2025 1:32 PM EST) Hemoglobin A1c 9.1(H) 4.3 - 5.6 % 06/04/2025 9:39 PM [facility] Calculated Mean Blood Glucose 214 mg/dL 06/04/2025 9:39 PM [facility] Comment:There is no establis hed normal range for the Estimated Average Glucose [...] ORDERABL ES Final Result Performing Organization Address [facility] Co de Phone Number [address] [address] * (ABNORMAL) Basic Metabolic Panel (BMP) (06/04/2025 1:32 PM EST) Sodium 131(L) 136 - 145 mmol/L 06/04/2025 7:40 PM [facility] Potassium 5.6(H) 3.4 - 5.1 mmol/L 06/04/2025 7:40 PM [facility] Chloride 102 98 - 107 mmol/L 06/04/2025 7:40 PM [facility] CO2 20 20 - 31 mmol/L 06/04/2025 7:40 PM [facility] Anion Gap 9 3 - 17 mmol/L 06/04/2025 7:40 PM [facility] BUN 44(H) 6 - 23 mg/dL 06/04/2025 7:40 PM [facility] Creatinine 2.30(H) 0.60 - 1.30 mg/dL 06/04/2025 7:40 PM [facility] eGFR 35(L) >59 mL/min/1.7 3m2 06/04/2025 7:40 PM [facility] Comment:Estimated glomerular filtration rate calculated using the CKD-EPI refit equation. Glucose 177(H) 70 - 99 mg/dL 06/04/2025 7:40 PM [facility] Calcium 8.3(L) 8.5 - 10.5 mg/dL 06/04/2025 7:40 PM [facility] Blood (Blood) Venipuncture / Unknown 06/04/2025 1:32 PM EST 06/04/2025 1:32 PM EST us Jade Cano MD LAB BLOOD BKR ORDERABL ES Final Result [facility] [address] [place] [address] from Last 3 Months Insurance [employer] MEDICARE PART A & B [place] [id number] MEDICARE PART A & B [facility] [place] [phone] MEDICARE PART A & B Care Teams Fuel Cell Systems Engineer Relationship Specialty Start Date End Date Boris Mcgowan MD [address] [place] [phone] PCP - General Internal Medicine 09/20/22 Pineda Tarango MD [address] [place] [address] [facility] [place] [address] Nephrology 06/05/25 Additional Source Comments The information contained in this document represents components of the legal health record. It is not the complete legal health record.[facility]
--- OUTSIDE RECORDS SUMMARY | 2025-07-03 20:04 | XMS_ITS | Encounter Summary ---
Author Organization [facility] Address [address] [facility] [address] [place] [address] Phone Care Team Providers Care Housing Coordinator Name Role Phone Boris Mcgowan MD Primary Care Provider [phone] Pineda Tarango MD Unavailable [phone] Reason for Visit * Reason Onset Date Comments High Sugars at 572 06/22/2025 High Sugars a t 572 Encounter Details Date Type Department Care Team (Late st Contact Info) Description 06/22/2025 Telephone [facility] [address] [place] [address] Jade Cano MD [address] [place] [id number] [email or web address] High Sugars at 572 (High Sugars at [...] scale above from chart 11/2024 Call to [facility] vna nurse Corinna and she reports they are doing breakfast sliding scale [- 1 unit each parameter [ex. Less than 70 is 4 units, 70-150 4 units before meal and so on ] [facility] . Lunch and dinner sliding [...] high to register [Over 500 pt asymptomatic] [facility] vna nurse followed sliding scale for above readings nurse will try to monitor what pt is doing for diet,robert program aide group work reports pt sneaks a lot of snacks high in sugar/carbs,non compliant with diet. * Stacy Puentes LPN - 06/29/2025 5:23 PM EST Call from [facility] vna nurse reporting that she saw patient at 4:30 pm today and his BS reading was highand urine had trace ketones ,vna nurse gave pt 9 units insulin sliding scale at supper time. Tried to call vna nurse x 2 line busy * Stacy Puentes LPN - 06/29/2025 3:46 PM EST Call to pts manager of program at detention ,[facility] to call us back * Ann Garner - 06/29/2025 2:03 PM EST [employer] called to inform Dr. Pickett that the patient???s blood sugar has been consistently high at lunchtime (11:30 AM). The patient increased their water intake, but a repeat check two hours later was still high. Please contact and advise. CB: [phone] (open until 3 PM). Central Support Salesperson [employer] (Please do not reply to this user; this inbox is not monitored.) Thank you. * Stacy Puentes LPN - 06/25/2025 3:06 PM EST Call to patients manager of program at detention Nicole and she reports pts blood sugars are muchbetter 80 in am fasting and between 120-200 all other times and she reports pt has antoni 3 now . Nicole will call back if any changes/concerns * Stacy Puentes LPN - 06/23/2025 12:04 PM EST Call to patients manager [place] Nicole at detention left her a message to call us back askfor nursing. Call placed to patients day day care aide [email or web address] Pili RN and she reports patient is not at program today due to weather and she reports yesterday patients mother told her that patient ate a lot of different foods at Thanksgiving dinner that probably contributed to hid blood sugar increases yesterday. * Stacy Puentes LPN - 06/22/2025 3:10 PM EST Call to patients day program [phone] left message for manager of program to call us back ask to speak to nursing. Also call to patients detention and asked manager of program to call us back ask for nursing. * Hyacinth Bates - 06/22/2025 2:00 PM EST Pili, an RN from [email or web address]. Calls to alert Dr. Cano to patienbt's high blood sugar. It was 515 after lunch. Was given 7 units of insulin, increased water intake to 16 oz per hour and exercise. But states that BS is still at 572 now. Call back # is mobile # in chart for Nicole, the [employer] incident manager. [phone] with any medication change instructions. documented in this encounter Plan of Treatment Upcoming Encounters Date Type Department Care Team (Late st Contact Info) Description 09/02/2025 10:00 AM EST Office Visit [facility] [address] [place] [address] [place] [address] Jade Cano MD [address] [address] 12/08/2025 9:20 AM EDT Office Visit [facility] [address] [place] [address] María Jessica PA-C [address] [place] [address] 03/04/2026 11:40 AM EDT Office Visit [facility] [address] [place] [address] Jade Cano MD [address] [place] [address] documented as of this encounter Visit Diagnoses Not on filedocumented in this encounter Care Teams Housing Coordinator Relationship Specialty Start Date End Date Boris Mcgowan MD [address] [place] [address] Drive [address] [place] [phone] PCP - General Internal Medicine 09/20/22 Pineda Tarango MD [address] [place] [address] Nephrology 06/05/25 documented as of this encounter Additional Source Comments The information contained in this document represents components of the legal health record. It is not the complete legal health record.[facility]
--- OUTSIDE RECORDS SUMMARY | 2025-07-03 20:04 | XMS_ITS | Data Portability ---
Author Organization [place] - [facility] Address [address] [place] [id number] Care Team Providers Care R D Engineer Name Role Phone NATANAEL CORDOVA Primary Care Provider Assessment Encounter Date Assessment Date Assessment LastModified by Organization Details LastModified Time 05/18/2020 05/18/2020 Overview/Histo ry: This is a 39-year-old male, new to [facility], phone calls with complaints of testicular/pen is pain. Patient resides in a residential. This past medical history includes hypertension, high [...] No suprapubic tenderness noted. Genital exam-performed with media intern as listed in physical exam notes. No [...] Appointments None recorded. Lab urinalysis, dipstick 2019 [email or web address] [facility], [address] [place] [address], [phone], 0 17:56:19 culture, urine - Collected by [facility] 2019 LAUREN [facility] (Centralized Electronic Ordering - All Locations), Patient Can Go To The Location Of Their Choice, [id number] 0 21:04:00 Referral None recorded. Procedures None [...] Go To The Location Of Their Choice, [id number] 05/19/2020 21:04:00 05/18/20 20 05/19/2020 cultu re, urine report status FINAL 2019 Not Available [facility] (Centralized Electronic Ordering - All Locations) Patient Can Go To The Location Of Their Choice, [id number] 05/19/2020 21:04:00 05/18/2005/18/2020 urina lysis , dipst ick Appearance clear Not Available [facility] [address] [place], [address], 05/18/2020 17:54:49 05/18/2005/18/2020 urina lysis , dipst ick Color yellow Not Available [facility] [address] [place], [address], 05/18/2020 17:54:49 05/18/2005/18/2020 urina lysis , dipst ick Glucose positi ve Not Available [facility] [address] [place], [address], 05/18/2020 17:54:49 05/18/2005/18/2020 urina lysis , dipst ick Bilirubin negati ve Not Available [facility] [address] [place], [address], 05/18/2020 17:54:49 05/18/2005/18/2020 urina lysis , dipst ick Ketones NEG Not Available [facility] [address] [place], [address], 05/18/2020 17:54:49 05/18/2005/18/2020 urina lysis , dipst ick Sp. [place] 1.020 Not Available [facility] [address] [place], [address], 05/18/2020 17:54:49 05/18/2005/18/2020 urina lysis , dipst ick Blood NEG Not Available [facility] [address] [place], [address], 05/18/2020 17:54:49 05/18/20 20 05/18/2020 urina lysis , dipst ick pH 5.0 Not Available [facility] [address] [place], [address], 05/18/2020 17:54:49 05/18/2005/18/2020 urina lysis , dipst ick Protein positi ve Not Available [facility] [address] [place], [address], 05/18/2020 17:54:49 05/18/2005/18/2020 urina lysis , dipst ick Urobilirubin negati ve Not Available [facility] [address] [place], [address], 05/18/2020 17:54:49 05/18/20 20 05/18/2020 urina lysis , dipst ick Nitrites NEG Not Available [facility] [address] [place], [address], 05/18/2020 17:54:49 05/18/20 20 05/18/2020 urina lysis , dipst ick Leukocytes NEG Not Available [facility] [address] [place], [address], 05/18/2020 17:54:49 Result Notes None recorded. Medical Equipment None Reported. Allergies Allergen ID Allergen Name Allergen Category Reaction Reaction Severity Criticality Documentation Date Start Date Code Code System Note Provider Name and Address Organization Details Recorded Time 581317 Substance with sulfonami de structure and antibacte rial mechanism of action (substanc e) medicatio n Not available Not available Not available 05/18/2020 41602 8003 SNOMED FREDO SCOTT NP [address] [place], [address], [place] [facility] 0 17:40:39 [...] ICD10 Code Diagnosis IMO Codes Diagnosis Note [id number] FREDO SCOTT NP [facility] [address] [place], [place] [address] [address] 05/18/2020 17:20:56 05/19/2020 14:17:14 Pain in penis [id number] N48.89 Health Concerns Section Related Observation LastModified by Organization Detai ls LastModified Time None Recorded Concern Status LastModified by Organization Details LastModified Time None Recorded Advance Directives Directive None Recorded Payers Insurance Date Sequence Insurance Name Policy Number Policy Celeste Covered Member ID Celeste Member ID Guarantor Name 05/18/2020 1 *SELF PAY* Bernard Navarro [id number] Bernard Navarro 05/18/2020 2 [place] [facility] Bernard Navarro [id number] Bernard Navarro 05/18/2020 1 [place] B[place] [facility] Bernard Navarro [id number] Bernard Navarro 05/19/2020 1 [place] [employer] Bernard Navarro [id number] Bernard Navarro Notes Date Note Type Note Provider Name and Address Organization Details Recorded Time 05/18/2020 text/html This is a 39-year-old male, new to [facility], who is a staff members call with concerns for testicular pain. This patient resides in a residential setting. His past medical history includes hypertension, [...] was today. FREDO SCOTT NP [address] [place], [address], [place] [facility] 05/18/2020 17:56:38
--- OUTSIDE RECORDS SUMMARY | 2025-07-03 20:04 | XMS_ITS | Encounter Summary ---
Author Organization [facility] Address [address] [facility] [address] [place] [phone] Phone Care Team Providers Care Ladle Builder Name Role Phone Boris Mcgowan MD Primary Care Provider [phone] Pineda Tarango MD Unavailable [phone] Reason for Visit * Reason Onset Date Comments Tracheostomy Tube Check 03/30/2025 Re: bloo d sugars Encounter Details Date Type Department Care Team (Late st Contact Info) Description 03/30/2025 Telephone [facility] [address] [place] [address] María Jessica PA-C [address] [place] [address] [email or web address] Tracheostomy Tube Check (Re: blood sugars) Social [...] you. Will do. She will also let [facility] know also that there will be [...] 1:16 PM EDT I called Nicole Stout, signals intelligence analysis manager and she informed me when pt arrived [...] PM EDT Please check in with the signals intelligence analysis manager make sure Bernard is doing okay and his glucose levels arebetter with dinner thanks * Arcelia Roberts - 03/30/2025 1:48 PM EDT Pili the nurse from [facility] patients day program called and was [...] AM EST Office Visit [facility] [address] [place] [address] Jade Cano MD [address] [place] [address] 12/08/2025 9:20 AM EDT Office Visit [facility] [address] [place] [address] María Jessica PA-C [address] [place] [address] 03/04/2026 11:40 AM EDT Office Visit [facility] [address] [place] [address] Jade Cano MD [address] [place] [phone] [email or web address] documented as of this encounter Visit Diagnoses Not on filedocumented in this encounter Care Teams Ladle Builder Relationship Specialty Start Date End Date Boris Mcgowan MD [address] [place] [address] Drive [address] [place] [phone] PCP - General Internal Medicine 09/20/22 Pineda Tarango MD [address] [place] [address] [place] [address] Nephrology 06/05/25 documented as of this encounter Additional Source Comments The information contained in this document represents components of the legal health record. It is not the complete legal health record.[facility]
== END 2025-07-03 15:01 | disposition home or self-care (01) ==
LOC: HO.US 15:00
PROVIDERS: PCP Internal Medicine; Visit Provider Internal Medicine Hypertension Specialist
DX: N17.9 Acute kidney failure, unspecified (principal)
CPT/HCPCS: 76775

== ENCOUNTER → 2025-07-03 15:02 | Outpatient (BNV) | payer MEDICARE, MEDICAID, SELFPAY | PROVIDERS: PCP Internal Medicine; Visit Provider Radiology Diagnostic Radiology | DX: N17.9 Acute kidney failure, unspecified (principal); N28.1 Cyst of kidney, acquired | CPT/HCPCS: 76775 ==

== ENCOUNTER 2025-07-20 13:35 | Outpatient (AMB) | payer MEDICARE, MEDICAID, SELFPAY ==
--- NOTE | 2025-07-20 13:45 | A.OFFVIS_ITS ---
Vital Signs 07/20/25 13:51 Height 4 ft 9 in Weight 129 lb BMI 27.9 BP 146/66 H Blood Pressure Location Rt brachial Position Sitting Pulse 70 Pulse Source Pulse Oximeter Pulse Oximetry (%) 97 Oxygen Delivery Method Room Air Intake Visit Reasons: 3m Intake Note: Est pt for mgmt of fecal abn + GERD. CC; C/O intermittent bloating and constipation. Per social media coordinator, pt has also not been exhibiting much patience lately and not toileting as normal. He is not always tolerant of the suppositories but they do work according to social media coordinator. Refills needed for suppositories and colace. Special Events Assistant Required: No Accompanied by: Prospecting Observer Allergies Sulfa (Sulfonamide Antibiotics) (SULFA(SULFONAMIDE ANTIBIOTICS)) Allergy (Intermediate, Verified 07/20/25 13:46) ITCHING doxycycline Adverse Reaction (Intermediate, Verified 07/20/25 13:46) Pancreatitis HPI HPI 3m: Details: LAST VISIT Abdominal pain Acute pancreatitis GERD (gastroesophageal reflux disease) Dysphagia Constipation Left inguinal hernia Constipation Plan Patient will continue taking omeprazole and famotidine. Avoid dietary triggers and late night snacking. Checking blood sugars frequently. Avoiding food high in fat, carbs. Well-balanced diet discussed. Will increase Creon. Patient will take 2 capsules with meals. We will repeat MRI in 1 year. Will send a script for simethicone. Continue low FODMAP diet as much possible. Follow-up in 3 months, sooner on as needed basis. Patient and staff member are agreeable to this plan and verbalize understanding of instructions. They were given the opportunity to ask questions and all questions answered. ? Thank you for allowing me to participate in his care New simethicone 125 mg PO BID-QID PRN 120 caps 3RF abdominal distention K21.9 Changed Changed From lbwdls-lshyjegp-qithsom 24,000-76,000 -120,000 unit (Creon) administer with meals and/or snacks 1 cap PO QID 360 caps 2RF K86.81 Changed To nxlmto-mhouweut-yupvqan 24,000-76,000 -120,000 unit (Creon) administer with meals and/or snacks 2 caps PO QID 480 caps 2RF K86.81 TODAY'S VISIT Patient is here today for follow-up patient is here with his outreach and education social worker. Patient reports that he continues to be constipated sometimes. Patient gets annoyed when he has to sit on the toilet longer than few minutes. It patient of which worker stated that patient does not like to sit in the toilet for more than few minutes. Patient admits that he does not have the patient is for more than couple minutes.. We have discussed this during last the visit that possible diversion with be helpful when patient is sitting on the toilet to have him watch a movie on an iPad. Bloating has improved with the simethicone. He is still taking Creon with each meal. Acid reflux is suppressed with omeprazole. Patient denies melena, hematochezia, unintentional weight loss or ribbon like stools. Patient denies any dyspepsia, dysphagia or odynophagia. [facility] Medical History Renal insufficiency Renal insufficiency Cellulitis Constipation Ascites Pericardial effusion Urethral meatal stenosis Mental and behavioral problem Hypercholesterolemia Down syndrome GERD (gastroesophageal reflux disease) BPH (benign prostatic hyperplasia) Hypothyroid Anxiety and depression Pseudoseizures Diabetes mellitus type 1 Surgical History Hx of cataract surgery Family History Father Medical history unknown Mother Medical history unknown Maternal Grandfather Prostate cancer Social History Household Members: Other Household Members Other:: senior living Housing: Other Housing Other:: senior living Do you presently have visiting nurse or other home services: No Alcohol intake: never Comment: 1:1 Sitter Patient Tobacco Use Status: Never used Tobacco Tobacco use type: Cigarette e-Cigarette/Vaping Use: Never Used Second Hand Smoke Exposure: No service: No Current occupational status: disabled Cognitive needs: No Hearing needs: No Vision needs: No Review of Systems Const Denies weight gain and Denies weight loss ENT Reports no additional complaints, Denies dysphagia and Denies odynophagia Card Reports no additional complaints Resp Reports no additional complaints GI Reports abdominal pain (Right lumbar), Denies belching, Denies melena, Denies bloating, Denies change in bowel habits, Reports constipation, Denies dysphagia, Denies excessive flatus, Denies dyspepsia, Denies heartburn, Denies diarrhea, Reports loose stools, Denies nausea, Denies odynophagia and Denies vomiting Reports no additional complaints Musc Reports no additional complaints Neuro Reports no additional complaints Psych Reports no additional complaints Endo Reports no additional complaints Physical Exam Vital Signs: Last Vital Signs Pulse 70 07/20/25 13:51 BP 146/66 H 07/20/25 13:51 Pulse Ox 97 07/20/25 13:51 Oxygen Delivery Method Room Air 07/20/25 13:51 BMI result Body Mass Index 27.9 Const General: healthy appearing, no acute distress and well developed Nutritional Appearance: well nourished Orientation/consciousness: oriented to person Resp Effort & Inspection: normal respiratory effort, able to speak in complete sen tences, no tracheal deviation and symmetric chest movement Auscultation: clear to auscultation bilaterally Cardio Rate: regular rate Heart sounds: S1 normal heart sound present and S2 normal heart sound present GI Inspection: Yes normal to inspection and No distended Palpation (GI): Soft to palpation, not firm, nontender and No hepatosplenomegaly present Auscultation: normal bowel sounds General: Yes no CVA tenderness Back/Spine/Pelvis Back: no CVA tenderness Skin General skin exam: elasticity normal, turgor normal and dry skin Neuro General: oriented to person Assessment & Plan Assessment & Plan (1) GERD (gastroesophageal reflux disease): Code(s): K21.9 - Gastro-esophageal reflux disease without esophagitis Category: Medical Qualifiers: Esophagitis presence: without esophagitis Qualified Code(s): K21.9 - Gastro-esophageal reflux disease without esophagitis (2) Dysphagia: Code(s): R13.10 - Dysphagia, unspecified Category: Medical Qualifiers: Dysphagia type: other dysphagia Qualified Code(s): R13.19 - Other dysphagia (3) Acute pancreatitis: Code(s): K85.90 - Acute pancreatitis without necrosis or infection, unspecified Category: Medical Qualifiers: Pancreatitis type: idiopathic Acute pancreatitis complication: no infection or necrosis Qualified Code(s): K85.00 - Idiopathic acute pancreatitis without necrosis or infection (4) Constipation: Code(s): K59.00 - Constipation, unspecified Category: Medical Qualifiers: Constipation type: chronic idiopathic constipation Qualified Code(s): K59.04 - Chronic idiopathic constipation (5) Constipation: Code(s): K59.00 - Constipation, unspecified Category: Medical Qualifiers: Constipation type: slow transit constipation Qualified Code(s): K59.01 - Slow transit constipation (6) Abdominal pain: Code(s): R10.9 - Unspecified abdominal pain Category: Medical Qualifiers: Abdominal location: generalized Qualified Code(s): R10.84 - Generalized abdominal pain Plan We will hold Dulcolax and will start him on Linzess. Increase fluid intake and activity to promote bowel motility. Patient was encouraged to sit longer on the toilet possible destruction with watching a movie or something that patient has a interest doing. Continue stool softener, simethicone and Creon. Discussed with patient low FODMAP diet and trying to avoid certain food. Patient is doing well for the most part when it comes to eating food. I will see patient in 4-5 weeks. Patient's out reach were her will call us if patient will be experiencing or complaining of any GI concerning symptoms. Both patient and out reach worker are agreeable to plan of care and verbalizes understanding of instructions. They were given the opportunity to ask questions and all quest ions answered. Thank you for allowing me to participate in his care Medications: New linaclotide (Linzess) 145 mcg PO DAILY 30 caps 4RF K59.04 - Chronic idiopathic constipation bisacodyl (Dulcolax (bisacodyl)) 10 mg ME DAILY PRN 30 ea 0RF constipation On Hold bisacodyl (Dulcolax (bisacodyl)) Hold Comment: Doctor's Order 10 mg (2 x 5 mg) PO BEDTIME 180 tabs 4RF Coding Level of Care Code Est Pt Level 3 (68281) Diagnoses Gastroesophageal reflux disease without esophagitis K21.9 Esophagitis presence: without esophagitis Other dysphagia R13.19 Dysphagia type: other dysphagia Idiopathic acute pancreatitis without infection or necrosis K85.00 Pancreatitis type: idiopathic Acute pancreatitis complication: no infection or necrosis Chronic idiopathic constipation K59.04 Constipation type: chronic idiopathic constipation Generalized abdominal pain R10.84 Abdominal location: generalized Time Spent (min) 30 Comment 20 minutes spent with patient and additional 10 minutes spent reviewing his records
[2025-07-20 13:51] VITALS: BP 146/66; PULSE 70; O2SAT 97; BMI 27.9
--- OUTSIDE RECORDS SUMMARY | 2025-07-20 15:45 | XMS_ITS | Clinical Summary ---
Author Organization [facility] Address [address] [place] [address] Phone Care Team Providers Care Manager Mba Name Role Phone Boris Mcgowan MD Primary Care Provider [phone] Pineda Tarango MD Unavailable [phone] Allergies Active Allergy Reactions Criticality Noted Date [...] Active ferrous sulfate 325 mg (65 mg lytton iron) EC tablet Take 325 mg by [...] 4 times/day 150 strip 11 4 Active amLODIPine (NORVASC) 5 MG tablet Take [...] mouth daily. 180 capsule 1 4 Active blood-glucose meter kitIndications: Type 1 [...] per protocol). 75 g 11 5 Active glucagon (BAQSIMI) 3 mg/actuation SpryIndications [...] Day Program 600 strip 3 5 Active transparent dressings (TEGADERM) 3 1/2 X 4 BndgIndications :Type 1 diabetes mellitus with peripheral neuropathy Apply 1 each topically Every 10 Days. To cover the dexcom G6 CGM 9 each 3 5 Active COMFORT EZ PEN NEEDLES 32 gauge x /32 NdleIndications :Type 1 diabetes mellitus with nephropathy Inject 1 each under the skin 4 (four) times a day. 400 each 3 5 Active HUMALOG KWIKPEN INSULIN 100 unit/mL kwikpenIndicati ons:Type 1 diabetes mellitus with nephropathy 2-14 units, via scale, subcutaneously, tid AC 15 mL 5 Active insulin glargine (LANTUS SOLOSTAR U-100 INSULIN) 100 unit/mL (3 mL) InPn injection penIndications: Type 1 diabetes mellitus with nephropathy 14 units, or as directed, plus 2 units to prime needle with each dose 15 mL 5 Active alcohol PadM Apply topically 4 (four) times a day. 400 each 3 5 Active atorvastatin (LIPITOR) 10 MG tablet Take 10 mg by mouth daily. Active PURE COMFORT SAFETY LANCETS 30 gauge MiscIndications :Type 1 diabetes mellitus with nephropathy Inject 1 each under the skin 4 (four) times a day before meals and nightly. 200 each 11 Active Active Problems Problem Noted Date Diagnosed [...] 1 diabetes mellitus 10/19/2022 Overview (10/19/2022): Dexcom ra Becerril Assessment & Plan (06/08/2025 5:54 PM [...] his glucose levels. Up to date with [facility]. Sees podiatry. Labs ordered Assessment [...] with glycemic control. Up to date with [facility]. Follows with podiatry. Will call for recent [...] his glucose levels. [facility]. Sees podiatry. [...] Problem Noted Date Diagnosed Date Resolved Date [facility] (current) use of insulin 10/19/2022 04/24/2023 Encounters Date Type Department Care Team Description 07/20/2025 Telephone [facility] Endocrinology Clinic [address] [place] [address] [place] [address] Stacy Puentes LPN 06/27/2025 Telephone [facility] Diabetes Clinic [address] [place] [address] [place] [address] Stacie Rios MD 06/22/2025 Telephone [facility]inology [facility] [address] [place] [address] [place] [address] Jade Cano MD High Sugars at 572 (High Sugars at 572) 06/19/2025 Telephone [facility] Endocrinology [address] [place] [address] Courtney Esteban MD Meter reads high blood sugar 06/13/2025 Telephone [facility] Endocrinology [address] [place] [address] Yarelis Theodore, CONDITIONING ROOM WORKER Hyperglycemia 06/10/2025 Telephone [facility] Endocrinology [address] [place] [address] Jade Cano MD ELEVATED BLOOD GLUCOSE LEVEL 06/08/2025 Telephone [facility] Endocrinology [address] [place] [address] Jade Cano MD 06/04/2025 11:40 AM EST Office Visit [facility] Endocrinology [address] [place] [address] Jade Cano MD 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); Acquired hypothyroidism; 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; Type 1 diabetes mellitus with peripheral neuropathy; Type 1 diabetes mellitus with retinopathy, macular edema presence unspecified, unspecified laterality, unspecified retinopathy severity 06/02/2025 Refill [facility] Endocrinology [address] [place] [address] Luana Wild [place], [place] Medication Refill 06/01/2025 Telephone [facility] Endocrinology [address] [place] [address] Jade Cano MD 06/01/2025 Telephone [facility] Endocrinology [address] [place] [address] Jade Cano MD Reporting High Sugars 05/16/2025 Orders Only [facility] Diabetes [address] [place] [address] Yarelis Theodore, CONDITIONING ROOM WORKER 05/13/2025 Telephone [facility] Rheumatology [address] [place] [address] Jade Cano MD VNA Update 05/03/2025 Telephone [facility] Endocrinology [facility] [address] [place] [address] Courtney Esteban MD High blood sugars from Last 3 Months Social History Tobacco [...] Description 09/02/2025 10:00 AM EST Office Visit [facility] Endocrinology [facility] [address] [place] [address] Jade Cano MD [address] [place] [address] 12/08/2025 9:20 AM EDT Office Visit [facility] Endocrinology [facility] [address] [place] [address] María Jessica PA-C [address] [place] [address] 03/04/2026 11:40 AM EDT Office Visit [facility] Endocrinology [facility] [address] [place] [address] Jade Cano MD [address] [place] [address] Health Maintenance Due Date Last Done Comments [...] - 5.00 uIU/mL 06/04/2025 7:40 PM EST [facility] Blood (Blood) Venipuncture / Unknown 06/04/2025 1:32 PM EST 06/04/2025 1:32 PM EST Jade Cano MD LAB BLOOD BKR ORDERABL ES Final Result Performing Organization Address [facility]/ZIP Co de Phone Number [address] [address] * Alanine Aminotransferase (ALT) (06/04/2025 1:32 PM EST) ALT 14 <50 U/L 06/04/2025 7:4 0 PM EST [facility] Blood (Blood) Venipuncture / Unknown 06/04/2025 1:32 PM EST 06/04/2025 1:32 PM EST Jade Cano MD LAB BLOOD BKR ORDERABL ES Final Result Performing Organization Address City/[facility]/ZIP Co de Phone Number [address] [address] * Aspartate Aminotransferase (AST) (06/04/2025 1:32 PM EST) Pathologist [facility] AST 18 <40 U/L 06/04/2025 7:4 0 PM [facility] Blood (Blood) Venipuncture / Unknown 06/04/2025 1:32 PM EST 06/04/2025 1:32 PM EST Jade Cano MD LAB BLOOD BKR ORDERABL ES Final Result Performing Organization Address [facility]/ZIP Co de Phone Number [address] [address] * (ABNORMAL) Hemoglobin A1c (06/04/2025 1:32 PM EST) [facility] Hemoglobin A1c 9.1(H) 4.3 - 5.6 % 06/04/2025 9:39 PM [facility] Calculated Mean Blood Glucose 214 mg/dL 06/04/2025 9:39 PM [facility] Comment:There is no establis [facility] normal range for the Estimated Average Glucose [...] ORDERABL ES Final Result Performing Organization Address [facility]/ZIP Co de Phone Number [address] [address] * (ABNORMAL) Basic Metabolic Panel (BMP) (06/04/2025 1:32 PM EST) Pathologist [facility] Sodium 131(L) 136 - 145 mmol/L 06/04/2025 7:40 PM [facility] Potassium 5.6(H) 3.4 - 5.1 mmol/L 06/04/2025 7:40 PM [facility] Chloride 102 98 - 107 mmol/L 06/04/2025 7:40 PM [facility] CO2 20 20 - 31 mmol/L 06/04/2025 7:40 PM [facility] Anion Gap 9 3 - 17 mmol/L 06/04/2025 7:40 PM [facility] BUN 44(H) 6 - 23 mg/dL 06/04/2025 7:40 PM [facility] Creatinine 2.30(H) 0.60 - 1.30 mg/dL 06/04/2025 7:40 PM [facility] eGFR 35(L) >59 mL/min/1.7 3m2 06/04/2025 7:40 PM [facility] Comment:Estimated glomerular filtration rate calculated using the CKD-EPI refit equation. Glucose 177(H) 70 - 99 mg/dL 06/04/2025 7:40 PM [facility] Calcium 8.3(L) 8.5 - 10.5 mg/dL 06/04/2025 7:40 PM [facility] Blood (Blood) Venipuncture / Unknown 06/04/2025 1:32 PM EST 06/04/2025 1:32 PM EST Jade Cano MD LAB BLOOD BKR ORDERABL ES Final Result Performing Organization Address City/State/[facility] Co de Phone Number [facility] [address] [place] [address] from Last 3 Months Insurance [employer] MEDICARE PART A & B [place] DOSHI [id number] MEDICARE PART A & [address] [place], [place] [address] [phone] MEDICARE PART A & B Care Teams Manager Mba Relationship Specialty Start Date End Date Boris Mcgowan MD [address] [place] [address] PCP - General Internal Medicine 09/20/22 Pineda Tarango MD [address] [place] [address] [address] [place] [address] Nephrology 06/05/25 Additional Source Comments The information contained in this document represents components of the legal health record. It is not the complete legal health record.[facility]
--- OUTSIDE RECORDS SUMMARY | 2025-07-20 15:45 | XMS_ITS | Encounter Summary ---
Author Organization [facility] Address [address] [place] [address] Phone Care Team Providers Care Child Care Cook Name Role Phone Boris Mcgowan MD Primary Care Provider [phone] Pineda Tarango MD Unavailable [phone] Encounter Details Date Type Department Care Team (Late st Contact Info) Description 07/20/2025 Telephone [facility] Endocrinology Clinic [address] [place], [place] [id number] Stacy Puentes LPN [address] [place] [address] [email or web address] Social History Tobacco Use Types Packs/Day Years [...] Progress Notes * Stacy Puentes LPN - 07/20/2025 3:01 PM EST Call from [place] [facility] nurse Carol Ann [phone] and she reports on Sunday07/18/25 pt's BS at noon was 587 pt had 7 units insulin sliding scale and at 4 pm same day BS went down to 175. Call to vna nurse Carol Ann and she reports she only sees pt on sun and Sundays ,Carol Ann reports at noon time Sunday BS 230 she gave pt 4 units sliding scale insulin. Carol Ann had no other BS numbers/info. documented in this encounter Plan of Treatment Upcoming Encounters Date Type Department Care Team (Late st Contact Info) Description 09/02/2025 10:00 AM EST Office Visit [facility] Endocrinology Clinic [address] [place] [address] [place] [address] Jade Cano MD [address] [place] [address] 12/08/2025 9:20 AM EDT Office Visit [facility] Endocrinology [address] [place] [address] María Jessica PA-C [address] [place] [address] 03/04/2026 11:40 AM EDT Office Visit [facility] Endocrinology [address] [place] [address] Jade Cano MD [address] [place] [address] documented as of this encounter Visit Diagnoses Not on filedocumented in this encounter Care Teams Child Care Cook Relationship Specialty Start Date End Date Boris Mcgowan MD [address] [place] [address] PCP - General Internal Medicine 09/20/22 Pineda Tarango MD [address] [place] [address] Dr [address] [place] [address] Nephrology 06/05/25 documented as of this encounter Additional Source Comments The information contained in this document represents components of the legal health record. It is not the complete legal health record.[facility]
--- OUTSIDE RECORDS SUMMARY | 2025-07-20 15:45 | XMS_ITS | Data Portability ---
Author Organization [place] [facility] Address [address] [place] [address] Care Team Providers Care Assistant Women'S Soccer Coach Name Role Phone NATANAEL CORDOVA Primary Care Provider [phone] Assessment Encounter Date Assessment Date Assessment LastModified by Organization Details LastModified Time 05/18/2020 05/18/2020 Overview/Histo ry: This is a 39-year-old male, new to [facility] [employer] [facility], phone calls with complaints of testicular/pen is pain. Patient resides in a detention. This past medical history includes hypertension, high [...] No suprapubic tenderness noted. Genital exam-performed with spindle plumber as listed in physical exam notes. No [...] Appointments None recorded. Lab urinalysis, dipstick 2019 [email or web address] [facility], [address] [place] [address], [phone], 0 17:56:19 culture, urine - [facility] 2019 LAUREN [facility] (Centralized Electronic Ordering - All Locations), Patient Can Go To The Location Of Their Choice, [id number] 0 21:04:00 Referral None recorded. Procedures None [...] Go To The Location Of Their Choice, [id number] 05/19/2020 21:04:00 05/18/20 20 05/19/2020 cultu re, urine report status FINAL 2019 Not Available [facility] (Centralized Electronic Ordering - All Locations) Patient Can Go To The Location Of Their Choice, [address] 05/19/2020 21:04:00 05/18/2005/18/2020 urina lysis , dipst ick Appearance clear Not Available [facility] [address] [place], [address], 05/18/2020 17:54:49 05/18/2005/18/2020 urina lysis , dipst ick Color yellow Not Available [facility] [address] [place], [address], 05/18/2020 17:54:49 05/18/2005/18/2020 urina lysis , dipst ick Glucose positi ve Not Available [facility] [address] [place], [address], 05/18/2020 17:54:49 05/18/2005/18/2020 urina lysis , dipst ick Bilirubin negati ve Not Available [facility] [address] [place], [address], 05/18/2020 17:54:49 05/18/2005/18/2020 urina lysis , dipst ick Ketones NEG Not Available [facility] [address] [place], [address], 05/18/2020 17:54:49 05/18/2005/18/2020 urina lysis , dipst ick Sp. [place] 1.020 Not Available [facility] [address] [place], [address], 05/18/2020 17:54:49 05/18/2005/18/2020 urina lysis , dipst ick Blood NEG Not Available [facility] [address] [place], [address], 05/18/2020 17:54:49 05/18/20 20 05/18/2020 urina lysis , dipst ick pH 5.0 Not Available [facility] [address] [place], [address], 05/18/2020 17:54:49 05/18/2005/18/2020 urina lysis , dipst ick Protein positi ve Not Available [facility] [address] [place], [address], 05/18/2020 17:54:49 05/18/2005/18/2020 urina lysis , dipst ick Urobilirubin negati ve Not Available [facility] [address] [place], [address], 05/18/2020 17:54:49 05/18/20 20 05/18/2020 urina lysis , dipst ick Nitrites NEG Not Available [facility] [address] [place], [address], 05/18/2020 17:54:49 05/18/20 20 05/18/2020 urina lysis , dipst ick Leukocytes NEG Not Available [facility] [address] [place], [address], 05/18/2020 17:54:49 Result Notes None recorded. Medical Equipment None Reported. Allergies Allergen ID Allergen Name Allergen Category Reaction Reaction Severity Criticality Documentation Date Start Date Code Code System Note Provider Name and Address Organization Details Recorded Time 090865 Substance with sulfonami de structure and antibacte rial mechanism of action (substanc e) medicatio n Not available Not available Not available 05/18/2020 [address]72[address] 8003 SNOMED FREDO SCOTT NP [address] [place], [address], [place] [facility] 0 17:40:39 [...] ICD10 Code Diagnosis IMO Codes Diagnosis Note [id number] FREDO SCOTT NP [facility] [address] [place], [place] [address]RI [address] 05/18/2020 17:20:56 05/19/2020 14:17:14 Pain in penis [id number] N48.89 Health Concerns Section Related Observation LastModified by Organization Detai ls LastModified Time None Recorded Concern Status LastModified by Organization Details LastModified Time None Recorded Advance Directives Directive None Recorded Payers Insurance Date Sequence Insurance Name Policy Number Policy Celeste Covered Member ID Celeste Member ID Guarantor Name 05/18/2020 1 *SELF PAY* Bernard Navarro [id number] Bernard Navarro 05/18/2020 2 [place] Bernard Navarro [id number] Bernard Navarro 05/18/2020 1 MEDIC[place] B[place] [facility] Bernard Navarro [id number] Bernard Navarro 05/19/2020 1 [place]IC[place] [employer] Bernard Navarro [id number] Bernard Navarro Notes Date Note Type Note Provider Name and Address Organization Details Recorded Time 05/18/2020 text/html This is a 39-year-old male, new to [employer], who is a staff members call with concerns for testicular pain. This patient resides in a detention setting. His past medical history includes hypertension, [...] was today. FREDO SCOTT NP [address] [place], [address], [place] [facility] 05/18/2020 17:56:38
--- OUTSIDE RECORDS SUMMARY | 2025-07-20 15:45 | XMS_ITS | Clinical Summary ---
Author Organization [facility] Facility Address [address] [address] Care Team Providers Care Urban Sociologist Name Role Phone Boris Mcgowan MD Primary Care Provider [phone] Allergies No known active allergies Medications aspirin [...] Medicaid [place] Care Teams Urban Sociologist Relationship Specialty Start Date End Date Boris Mcgowan MD [address] [place] PCP - General 08/02/20
== END 2025-07-20 14:15 | disposition home or self-care (01) ==
LOC: HO.HGI 13:36
PROVIDERS: PCP Internal Medicine; Visit Provider Nurse Practitioner Family
DX: K21.9 Gastro-esophageal reflux disease without esophagitis (principal); R13.19 Other dysphagia; K85.00 Idiopathic acute pancreatitis without necrosis or infection; K59.04 Chronic idiopathic constipation; R10.84 Generalized abdominal pain; K59.01 Slow transit constipation
CPT/HCPCS: 99213

== ENCOUNTER → 2025-07-20 13:35 | Outpatient (BNVA) | payer MEDICARE, MEDICAID, SELFPAY | PROVIDERS: PCP Internal Medicine; Visit Provider Nurse Practitioner Family | DX: K21.9 Gastro-esophageal reflux disease without esophagitis (principal); K59.04 Chronic idiopathic constipation; R13.19 Other dysphagia; K85.00 Idiopathic acute pancreatitis without necrosis or infection; R10.84 Generalized abdominal pain | CPT/HCPCS: 99212 ==